=== PATIENT | female | born 1945 | race African-American/Black ===

== ENCOUNTER 2016-12-25 13:37 | Inpatient (IN) | payer OTHER ==
[~2016-12-25] VITALS: Ht 162.6 cm; Wt 93.0 kg
[2016-12-25] VITALS (10 sets, daily range): BP systolic 168–210; BP diastolic 57–94
[~2016-12-25 13:37] MED LIST: ACETAMINOPHEN650 M2 ORAL; ASPIR 8181 MG ORAL; BENAZEPRIL HCL10 MG ORAL; BLOOD PRESSURE PILL ORAL; COLACE100 MG ORAL; DUONEB 0.5-3(2.53 ML HHN; FERROUS SULFAT325 MG ORAL; GLIPIZIDE ER10 MG PO; INVANZ1 G1 IM; LEVOFLOXACIN750 MG ORAL; LOVENOX10 M4 SUBQ; METOPROLOL SUCC25 MG ORAL; MORPHINE 44 MG/1 ML IV; NOVOLIN N100 UNIT/1 SUBQ; NOVOLOG100 UNIT/3 SUBQ; ONDANSETRON4 MG/2 M2 IVP; PROTONIX40 MG ORAL; VANCOMYCIN1 GM/2502 IVPB
[2016-12-25] MEDS ORDERED: cefTRIAXone 1 GM in NS 55 ML IVPB ONE (14:15)
[2016-12-25] MEDS ORDERED: Vancomycin 1.5gm/D5W 250ml 250 ML IVPB ONE ×2 (14:15→17:00)
--- NOTE | 2016-12-25 14:16 | Emergency Room Report ---
History of Present Illness General Chief Complaint: Skin Rash/Abscess Source: Patient Present Illness HPI 71-year-old female history of hypertension and diabetes presenting with left lower leg ulcer with redness and pain for 2 months. Patient states that she has been using"[id number]"medications to treat her ulcer, however it keeps getting worse. Patient has not sought medical care for her ulcer. + yellow purulent drainage. +pain and redness to lower leg extending to mid calf. Denies fever chills chest pain shortness of breath nausea vomiting diarrhea No recent hospitalizations Allergies: Coded Allergies: No Known Allergies (Unverified , 01/12/13) Patient History Past Medical History: see triage record Past Surgical History: none Pertinent Family History: none Last Menstrual Period: na Reviewed Nursing Documentation: PMH: Agreed, PSxH: Agreed Nursing Documentation-PMH Past Medical History: No History, Except For Hx Cardiac Problems: Yes Hx Hypertension: Yes Hx Asthma: Yes Hx Diabetes: Yes Hx Cancer: No Hx Gastrointestinal Problems: No Hx Neurological Problems: Yes Hx Peripheral Neuropathy: Yes - S/P RIGHT FOOT SURGERY 02/2013 Review of Systems All Other Systems: negative except mentioned in HPI Physical Exam Vital Signs Date Time Temp Pulse Resp B/P (MAP) Pulse Ox O2 Delivery O2 Flow Rate FiO2 12/25/16 13:51 98.1 74 18 186/92 96 Room Air Sp02 EP Interpretation: reviewed, normal General Appearance: normal inspection, well appearing, no apparent distress, alert, GCS 15, non-toxic Head: normocephalic, atraumatic Eyes: bilateral eye normal inspection, bilateral eye PERRL, bilateral eye EOMI ENT: normal ENT inspection, normal pharynx, normal voice, moist mucus membranes Neck: normal inspection, full range of motion, supple Respiratory: normal inspection, lungs clear, normal breath sounds, no respiratory distress, no retraction, no wheezing, speaking full sentences, chest symmetrical Cardiovascular #1: normal inspection, regular rate, rhythm, no edema, normal capillary refill Cardiovascular #2: 2+ radial (R), 2+ radial (L) Gastrointestinal: normal inspection, non tender, soft, non-distended, no guarding Musculoskeletal: normal range of motion, other - Left lower extremity, lateral aspect of distal tib-fib, 2 x 2 superficial ulcer, purulent drainage, tender to palpation, surrounding erythema extending from ankle to mid calf, tender to palpation, no crepitus, distal pulses intact Neurologic: normal inspection, alert, oriented x3, responsive, motor strength/ tone normal, sensory intact, normal gait, speech normal Psychiatric: normal inspection, judgement/insight normal, memory normal Skin: warm/dry, well hydrated, normal turgor Medical Decision Making Diagnostic Impression: Primary Impression: Cellulitis Qualified Codes: L03.116 - Cellulitis of left lower limb ER Course 71-year-old female with diabetes presenting with redness/swelling to left lower leg for 2 months DDX: Diabetic ulcer infected/cellulitis No crepitus / pain out of proportion / rapid spreading for concern for nec fasc Plan: IV Antibiotics Anticipate admission ER course: Patient has been stable during ED stay, received IV antibiotics Disposition: Patient requires inpatient stay for IV antibiotics Patient admitted to [facility] Patient was signed out to Dr Ambriz, who has accepted patient for admission. Please note that this Emergency Department Report was dictated using [employer] vice president technology software, occasionally this can lead to erroneous entry secondary to interpretation by the dictation equipment. Laboratory Tests Test 12/25/16 14:23 White Blood Count 11.3 K/UL (4.8-10.8) H Red Blood Count 4.98 M/UL (4.20-5.40) Hemoglobin 11.3 G/DL (12.0-16.0) L Hematocrit 38.5 % (37.0-47.0) Mean Corpuscular Volume 77 FL (80-99) L Mean Corpuscular Hemoglobin 22.8 PG (27.0-31.0) L Mean Corpuscular Hemoglobin Concent 29.4 G/DL (32.0-36.0) L Red Cell Distribution Width 13.3 % (11.6-14.8) Platelet Count 233 K/UL (150-450) Mean Platelet Volume 9.6 FL (6.5-10.1) Neutrophils (%) (Auto) 64.7 % (45.0-75.0) Lymphocytes (%) (Auto) 23.2 % (20.0-45.0) Monocytes (%) (Auto) 7.8 % (1.0-10.0) Eosinophils (%) (Auto) 2.8 % (0.0-3.0) Basophils (%) (Auto) 1.4 % (0.0-2.0) Sodium Level 139 mEQ/L (135-145) Potassium Level 4.9 mEQ/L (3.4-4.9) Chloride Level 100 mEQ/L (98-107) Carbon Dioxide Level 28 mEQ/L (20-30) Anion Gap 11 (5-15) Blood Urea Nitrogen 21 mg/dL (7-23) Creatinine 1.1 mg/dL (0.5-0.9) H Estimate Glomerular Filtration Rate 59.8 mL/min (>60) Glucose Level 304 mg/dL (74-106) H Lactic Acid Level 1.30 mmol/L (0.66-2.22) Calcium Level 9.2 mg/dL (8.6-10.2) Total Bilirubin 0.4 mg/dL (0.0-1.2) Aspartate Amino Transferase (AST) 17 U/L (5-40) Alanine Aminotransferase (ALT) 12 U/L (3-33) Alkaline Phosphatase 111 U/L (35-104) H C-Reactive Protein, Quantitative 3.4 mg/dL (< 0.5) H Total Protein 6.9 g/dL (6.6-8.7) Albumin 4.0 g/dL (3.5-5.2) Globulin 2.9 g/dL Albumin/Globulin Ratio 1.3 (1.0-2.7) EKG Diagnostic Results Rate: normal Rhythm: NSR ST Segments: no acute changes ASA given to the pt in ED: No Last Vital Signs Date Time Temp Pulse Resp B/P (MAP) Pulse Ox O2 Delivery O2 Flow Rate FiO2 12/25/16 13:51 98.1 74 18 186/92 96 Room Air Disposition: ADMITTED INPATIENT Condition: Veronica Bermeo M.D. Dec 25, 2016 14:16
[2016-12-25 14:50] LABS: BASOPHILS % (AUTO) 1.4 % (0.0-2.0); EOSINOPHILS % (AUTO) 2.8 % (0.0-3.0); LYMPHOCYTES % (AUTO) 23.2 % (20.0-45.0); MEAN CORPUSCULAR HEMOGLOBIN 22.8 PG (27.0-31.0); MEAN CORPUSCULAR HGB CONC 29.4 G/DL (32.0-36.0); MEAN CORPUSCULAR VOLUME 77 FL (80-99); MEAN PLATELET VOLUME 9.6 FL (6.5-10.1); MONOCYTES % (AUTO) 7.8 % (1.0-10.0); NEUTROPHILS % (AUTO) 64.7 % (45.0-75.0); PLATELET COUNT 233 K/UL (150-450); RED BLOOD COUNT 4.98 M/UL (4.20-5.40); RED CELL DISTRIBUTION WIDTH 13.3 % (11.6-14.8); WHITE BLOOD COUNT 11.3 K/UL (4.8-10.8)
[2016-12-25 15:08] LABS: ALBUMIN/GLOBULIN RATIO 1.3 (1.0-2.7); CALCIUM 9.2 mg/dL (8.6-10.2); CREATININE 1.1 mg/dL (0.5-0.9); GLOMERULAR FILTRATION RATE 59.8 mL/min (>60); POTASSIUM 4.9 mEQ/L (3.4-4.9); TOTAL PROTEIN 6.9 g/dL (6.6-8.7)
[2016-12-25] MEDS ORDERED: Albuterol/Ipratropium 3ml neb HHN PRN (16:00)
[2016-12-25] MEDS ORDERED: Miralax 17gm pkt ORAL PRN (16:00)
[2016-12-25] MEDS ORDERED: Morphine Sulfate 2mg/ml Inj IVP PRN (16:00)
[2016-12-25] MEDS ORDERED: Nitroglycerin Subl 0.4mg tab SL PRN (16:00)
[2016-12-25] MEDS: NovoLOG Insulin Flexpen SUBQ SCH ×2 (16:30→21:25)
[2016-12-25] MEDS: Heparin 5000 units/ml inj SUBQ SCH ×2 (21:00→21:22)
[2016-12-25] MEDS: Cefepime HCl 2 GM in D5W 110 ML IV SCH (21:21)
[2016-12-26 04:00] VITALS: BP 167/82
[2016-12-26] MEDS: NovoLOG Insulin Flexpen SUBQ SCH ×4 (06:18→21:00)
[2016-12-26 06:36] LABS: EOSINOPHILS % (AUTO) 3.4 % (0.0-3.0); LYMPHOCYTES % (AUTO) 19.3 % (20.0-45.0); MEAN CORPUSCULAR HEMOGLOBIN 24.5 PG (27.0-31.0); MEAN CORPUSCULAR HGB CONC 31.4 G/DL (32.0-36.0); MEAN CORPUSCULAR VOLUME 78 FL (80-99); MEAN PLATELET VOLUME 10.7 FL (6.5-10.1); MONOCYTES % (AUTO) 8.9 % (1.0-10.0); NEUTROPHILS % (AUTO) 67.3 % (45.0-75.0); PLATELET COUNT 232 K/UL (150-450); RED BLOOD COUNT 4.71 M/UL (4.20-5.40); RED CELL DISTRIBUTION WIDTH 13.5 % (11.6-14.8); WHITE BLOOD COUNT 9.7 K/UL (4.8-10.8)
[2016-12-26 07:17] LABS: ALBUMIN/GLOBULIN RATIO 0.8 (1.0-2.7); CALCIUM 9.1 mg/dL (8.6-10.2); CREATININE 1.1 mg/dL (0.5-0.9); GLOMERULAR FILTRATION RATE 59.8 mL/min (>60); POTASSIUM 4.7 mEQ/L (3.4-4.9); TOTAL PROTEIN 7.1 g/dL (6.6-8.7)
[2016-12-26 08:00] VITALS: BP 185/95
[2016-12-26] MEDS: Aspirin EC 81mg tab ORAL SCH (08:05)
[2016-12-26] MEDS: Benazepril 10mg tab ORAL SCH (08:07)
[2016-12-26] MEDS: Cefepime HCl 2 GM in D5W 110 ML IV SCH (08:22)
[2016-12-26] MEDS: Heparin 5000 units/ml inj SUBQ SCH ×2 (08:23→21:00)
[2016-12-26] MEDS ORDERED: Metoprolol Succinate XL 25mg tab ORAL SCH (09:00)
[2016-12-26 12:00] VITALS: BP 187/78
--- NOTE | 2016-12-26 12:55 | Diagnostic Imaging Report ---
APPROVED REPORT CPT Code: 78027 Present Symptoms Comments: R/O DVT BILATERAL: Imaging reveals a patent deep venous system bilaterally. There is no evidence of thrombus within the femoral, popliteal or tibial segments. The greater saphenous veins are also within normal limits. Doppler indicates normal spontaneous flow within these segments.
--- NOTE | 2016-12-26 14:52 | Wound Care Consultation ---
Wound Assessment Wound Assessment : Wound Number: 1 Wound Present on Admission: Yes New Wound: No Status Change of Wound: No Wound Location Body Site Modif: left, lower Wound Location Body Site: leg Wound Type: other - Diabetic ulcer. German Test: Does not German Wound Thickness: Full Thickness Wound Length: 4.0 Wound Width: 4.0 Wound Depth: 0.3 Percent of Wound [place]/Red: 50 Percent of Wound Black/Brown: 50 - appearing scab Wound Drainage Description: Serosanguineous Wound Drainage Amount: Moderate Wound Drainage Odor: None/Absent Tissue Surrounding Wound: Erythemic Wound General Appearance: Reddened, Blackened - necrotic scab, Draining Wound Comment #1 left lower leg Diabetic ulcer (OPEN ULCER) . Recommendation. - FOLLOW UP WITH ATTENDING MD FOR POSSIBLE PODIATRY CONSULT. -Local wound care as ordered. -Turn and reposition. -Offload affected site. -Elevate lower extremity. -Optimize nutrition. -Keep clean and dry. -Assess and notify MD for any further changes of condition noted to skin. VELIA EAGLE Dec 26, 2016 14:52
--- NOTE | 2016-12-26 15:45 | Consultation ---
History of Present Illness General Date patient seen: Dec 26, 2016 Time patient seen: 15:41 Chief Complaint: Skin Rash/Abscess Reason for Consultation: cellulitis Present Illness HPI 71-year-old F with hx of HTN, DM2 with peripheral neuropathy, chronic foot ulcer presents to ED on 12/25 with L lower ulcer with redness and pain for 2 months duration. Has been using OTC meds to treat ulcer but keeps worsening. Has not sought for medical care previously. Reports purulent yellow drainge and pain and redness up to mid calf. Denies f/c, cough, SOB, n/v/d. No recent admissions. Afebrile here, Mild leukocytosis, resolved. Started on IV Vanco and Cefepime. Allergies: Coded Allergies: No Known Allergies (Unverified , 01/12/13) Medication History Scheduled Acetaminophen (Acetaminophen 8 Hour), 650 MG ORAL Q4HR, (Reported) Aspirin* (Aspir 81*), 81 MG ORAL DAILY, (Reported) Benazepril Hcl* (Benazepril Hcl*), 20 MG ORAL DAILY Docusate Sodium* (Colace*), 100 MG ORAL TWICE A DAY, (Reported) Enoxaparin* (Lovenox*), 40 MG SUBQ DAILY, (Reported) Ertapenem (Invanz), 1 GM IM DAILY Ferrous Sulfate* (Ferrous Sulfate*), 325 MG ORAL DAILY Insulin Aspart* (Novolog*), 0 SUBQ AC+HS, (Reported) Levofloxacin* (Levofloxacin*), 750 MG ORAL DAILY Metoprolol Succinate* (Metoprolol Succinate*), 25 MG ORAL DAILY, (Reported) Morphine Sulfate/Pf (Morphine 4 Mg/Ml Carpuject), 4 MG IV Q6HR, (Reported) Ondansetron* (Zofran 4 Mg/2 Ml Vial*), 4 MG IVP Q6H, (Reported) Pantoprazole* (Protonix*), 40 MG ORAL DAILY, (Reported) Vancomycin Hcl/D5w (Vancomycin-D5w 1 G/250 Ml), 750 MG IVPB Q12HR, (Reported) Scheduled PRN Morphine Sulfate/Pf (Morphine 4 Mg/Ml Carpuject), 2 MG IV Q4HR PRN for Pain Scale (3-5), (Reported) Miscellaneous Medications Glipizide (Glipizide Er), 10 MG PO, (Reported) Ipratropium/Albuterol Sulfate (DuoNeb 0.5-3(2.5)mg/3ml), 3 ML HHN, (Reported) Patient History Healthcare decision maker Resuscitation status Full Code Advanced Directive on File No Past Medical/Surgical History Past Medical/Surgical History: (1) Anemia (2) Peripheral neuropathy (3) HTN (hypertension) (4) Diabetic foot ulcer with osteomyelitis (5) Diabetic foot ulcer (6) Pain in right foot (7) DM (8) Diabetic foot ulcer with osteomyelitis (9) Cellulitis Review of Systems ROS Narrative as per HPI, otherwise negative Physical Exam Physical Exam Narrative General Appearance: normal inspection, well appearing, HEENT:no oral lesions,PERRL Neck: supple Respiratory: CTA x2 Cardiovascular #1: normal inspection, regular rate, rhythm, no edema, normal capillary refill Gastrointestinal: normal inspection, non tender, soft, non-distended, no guarding Musculoskeletal: normal range of motion, other - Left lower extremity, lateral aspect of distal tib-fib, 2 x 2 superficial ulcer, no drainage, middly tender to palpation, surrounding erythema extending from ankle to mid calf. venous stasis changes b/l Neurologic: normal inspection, alert, oriented x3, responsive, motor strength/ tone normal, sensory intact, normal gait, speech normal Skin: warm/dry, well hydrated, normal turgor Last 24 Hour Vital Signs Date Time Temp Pulse Resp B/P (MAP) Pulse Ox O2 Delivery O2 Flow Rate FiO2 12/26/16 12:00 97.0 87 20 187/78 99 Room Air 12/26/16 08:22 81 167/82 12/26/16 08:07 167/82 12/26/16 08:06 167/82 12/26/16 08:00 97.9 75 20 185/95 98 Room Air 12/26/16 04:00 97.5 81 20 167/82 96 Room Air 12/25/16 20:03 97.3 86 20 174/74 97 Room Air 12/25/16 18:21 68 20 168/75 95 Room Air 12/25/16 17:47 98.4 81 17 173/94 98 Room Air 12/25/16 17:41 98.4 81 17 173/94 98 Room Air 12/25/16 17:30 98.1 81 17 173/94 98 Room Air 12/25/16 17:05 199/66 12/25/16 17:00 98.3 76 18 197/57 99 Room Air 12/25/16 16:30 98.0 78 13 199/61 99 Room Air 12/25/16 16:00 98.2 72 14 198/60 98 Room Air Laboratory Tests Test 12/26/16 05:30 White Blood Count 9.7 K/UL (4.8-10.8) Red Blood Count 4.71 M/UL (4.20-5.40) Hemoglobin 11.5 G/DL (12.0-16.0) L Hematocrit 36.7 % (37.0-47.0) L Mean Corpuscular Volume 78 FL (80-99) L Mean Corpuscular Hemoglobin 24.5 PG (27.0-31.0) L Mean Corpuscular Hemoglobin Concent 31.4 G/DL (32.0-36.0) L Red Cell Distribution Width 13.5 % (11.6-14.8) Platelet Count 232 K/UL (150-450) Mean Platelet Volume 10.7 FL (6.5-10.1) H Neutrophils (%) (Auto) 67.3 % (45.0-75.0) Lymphocytes (%) (Auto) 19.3 % (20.0-45.0) L Monocytes (%) (Auto) 8.9 % (1.0-10.0) Eosinophils (%) (Auto) 3.4 % (0.0-3.0) H Basophils (%) (Auto) 1.0 % (0.0-2.0) Sodium Level 137 mEQ/L (135-145) Potassium Level 4.7 mEQ/L (3.4-4.9) Chloride Level 98 mEQ/L (98-107) Carbon Dioxide Level 29 mEQ/L (20-30) Anion Gap 10 (5-15) Blood Urea Nitrogen 21 mg/dL (7-23) Creatinine 1.1 mg/dL (0.5-0.9) H Estimat Glomerular Filtration Rate 59.8 mL/min (>60) Glucose Level 411 mg/dL (74-106) #H Calcium Level 9.1 mg/dL (8.6-10.2) Total Bilirubin 0.3 mg/dL (0.0-1.2) Aspartate Amino Transf (AST/SGOT) 15 U/L (5-40) Alanine Aminotransferase (ALT/SGPT) 9 U/L (3-33) Alkaline Phosphatase 113 U/L (35-104) H Total Protein 7.1 g/dL (6.6-8.7) Albumin 3.3 g/dL (3.5-5.2) L Globulin 3.8 g/dL Albumin/Globulin Ratio 0.8 (1.0-2.7) L Height (Feet): 5 Height (Inches): 4.00 Weight (Pounds): 205 Medications Current Medications Medications (Trade) Dose Ordered Sig/Alfonso Route PRN Reason Start Time Stop Time Status Last Admin Dose Admin Acetaminophen (Tylenol) 650 mg Q4H PRN ORAL fever 12/25/16 16:00 01/24/17 15:59 Albuterol/ Ipratropium (DuoNeb 0.5-3(2.5)mg/3ml) 3 ml Q4H PRN HHN Shortness of Breath 12/25/16 16:00 12/30/16 15:59 Aspirin (Ecotrin) 81 mg DAILY ORAL 12/26/16 09:00 01/25/17 08:59 12/26/16 08:05 Benazepril HCl (Lotensin) 20 mg DAILY ORAL 12/26/16 09:00 01/25/17 08:59 12/26/16 08:07 Cefepime HCl 2 gm/ Dextrose 110 ml @ 220 mls/hr EVERY 12 HOURS IV 12/25/16 21:00 01/01/17 20:59 12/26/16 08:22 Clonidine HCl (Catapres) 0.1 mg Q6H PRN ORAL For High Blood Pressure 12/25/16 21:45 01/24/17 21:44 12/26/16 08:06 Dextrose (Dextrose 50%) STAT PRN IV Hypoglycemia 12/25/16 16:00 01/24/17 15:59 Glipizide (Glucotrol) 10 mg BIAC ORAL 12/26/16 16:30 01/25/17 16:29 Heparin Sodium (Porcine) (Heparin 5000 units/ml) 5,000 units EVERY 12 HOURS SUBQ 12/25/16 21:00 01/24/17 20:59 Insulin Aspart (NovoLOG) BEFORE MEALS AND HS SUBQ 12/25/16 16:30 01/24/17 16:29 12/26/16 12:52 Metoprolol Succinate (Toprol XL) 25 mg DAILY ORAL 12/26/16 09:00 01/25/17 08:59 Morphine Sulfate (Morphine Sulfate) 2 mg Q4H PRN IVP Moderate Pain (Pain Scale 4-6) 12/25/16 16:00 01/01/17 15:59 Nitroglycerin (Ntg) 0.4 mg Every 5 Minutes PRN SL Prn Chest Pain 12/25/16 16:00 01/24/17 15:59 Ondansetron HCl (Zofran) 4 mg Q6H PRN IVP Nausea & Vomiting 12/25/16 16:00 01/24/17 15:59 Pantoprazole (Protonix) 40 mg DAILY ORAL 12/26/16 09:00 01/25/17 08:59 Polyethylene Glycol (Miralax) 17 gm DAILYPRN PRN ORAL Constipation 12/25/16 16:00 01/24/17 15:59 Temazepam (Restoril) 15 mg HSPRN PRN ORAL Insomnia 12/25/16 16:00 01/01/17 15:59 Vancomycin HCl (Vanco rx to dose) 1 ea DAILY PRN MISC PER RX PROTOCOL 12/25/16 17:00 01/24/17 16:59 Vancomycin HCl/ Dextrose 250 ml @ 166.636 mls/hr Q24H IVPB 12/26/16 17:00 12/31/16 16:59 Assessment/Plan Assessment/Plan Abx: Ceftriaxone x1 12/25 IV Vancomcyin 12/25- IV Cefepime 12/26- Assesment: Chronic L leg ulcer with superimposed cellulitis- superificial ulcer.Ulcer in itself doesnt look infected but there is surrounding cellulitis- location of ulcer suggest venous insufficeicny -afebrile -wound cx and Bcx ordered Leukocytosis, mild- resolved Plan: -Switch current abx to IV Ancef for cellulitis -f/u cx -baseline ESR and CRP -wound care and podiatry evaluation -Monitor CBC/BMP, temperatures Thank you for this consultation.Will continue to follow along with you Discussed with RN and Doris Butterfield M.D. Dec 26, 2016 15:45
[2016-12-26 16:00] VITALS: BP 181/85
--- NOTE | 2016-12-26 16:08 | History and Physical ---
History of Present Illness General Date patient seen: Dec 26, 2016 Reason for Hospitalization: Skin Rash/Abscess Present Illness HPI 71-year-old female history of hypertension and diabetes presenting with left lower leg ulcer with redness and pain for 2 months. Patient has not sought medical care for her ulcer. + yellow purulent drainage. +pain and redness to lower leg extending to mid calf. She is admitted b/o not healing wound and cellulitis. Allergies: Coded Allergies: No Known Allergies (Unverified , 01/12/13) Medication History Scheduled Acetaminophen (Acetaminophen 8 Hour), 650 MG ORAL Q4HR, (Reported) Aspirin* (Aspir 81*), 81 MG ORAL DAILY, (Reported) Benazepril Hcl* (Benazepril Hcl*), 20 MG ORAL DAILY Docusate Sodium* (Colace*), 100 MG ORAL TWICE A DAY, (Reported) Enoxaparin* (Lovenox*), 40 MG SUBQ DAILY, (Reported) Ertapenem (Invanz), 1 GM IM DAILY Ferrous Sulfate* (Ferrous Sulfate*), 325 MG ORAL DAILY Insulin Aspart* (Novolog*), 0 SUBQ AC+HS, (Reported) Levofloxacin* (Levofloxacin*), 750 MG ORAL DAILY Metoprolol Succinate* (Metoprolol Succinate*), 25 MG ORAL DAILY, (Reported) Morphine Sulfate/Pf (Morphine 4 Mg/Ml Carpuject), 4 MG IV Q6HR, (Reported) Ondansetron* (Zofran 4 Mg/2 Ml Vial*), 4 MG IVP Q6H, (Reported) Pantoprazole* (Protonix*), 40 MG ORAL DAILY, (Reported) Vancomycin Hcl/D5w (Vancomycin-D5w 1 G/250 Ml), 750 MG IVPB Q12HR, (Reported) Scheduled PRN Morphine Sulfate/Pf (Morphine 4 Mg/Ml Carpuject), 2 MG IV Q4HR PRN for Pain Scale (3-5), (Reported) Miscellaneous Medications Glipizide (Glipizide Er), 10 MG PO, (Reported) Ipratropium/Albuterol Sulfate (DuoNeb 0.5-3(2.5)mg/3ml), 3 ML HHN, (Reported) Patient History Healthcare decision maker Resuscitation status Full Code Advanced Directive on File No Past Medical/Surgical History Past Medical/Surgical History: (1) DM (2) Diabetic foot ulcer (3) HTN (hypertension) Review of Systems All Other Systems: negative except mentioned in HPI Physical Exam General Appearance: WD/WN, no apparent distress Lines, tubes and drains: peripheral HEENT: normocephalic, atraumatic Neck: non-tender, normal alignment Respiratory/Chest: chest wall non-tender, lungs clear Breasts: no masses Cardiovascular/Chest: normal peripheral pulses Abdomen: normal bowel sounds, non tender Genitourinary/Rectal: normal genital exam, heme negative stool Extremities: normal range of motion, non-tender Last 24 Hour Vital Signs Date Time Temp Pulse Resp B/P (MAP) Pulse Ox O2 Delivery O2 Flow Rate FiO2 12/26/16 12:00 97.0 87 20 187/78 99 Room Air 12/26/16 08:22 81 167/82 12/26/16 08:07 167/82 12/26/16 08:06 167/82 12/26/16 08:00 97.9 75 20 185/95 98 Room Air 12/26/16 04:00 97.5 81 20 167/82 96 Room Air 12/25/16 20:03 97.3 86 20 174/74 97 Room Air 12/25/16 18:21 68 20 168/75 95 Room Air 12/25/16 17:47 98.4 81 17 173/94 98 Room Air 12/25/16 17:41 98.4 81 17 173/94 98 Room Air 12/25/16 17:30 98.1 81 17 173/94 98 Room Air 12/25/16 17:05 199/66 12/25/16 17:00 98.3 76 18 197/57 99 Room Air 12/25/16 16:30 98.0 78 13 199/61 99 Room Air Laboratory Tests Test 12/26/16 05:30 White Blood Count 9.7 K/UL (4.8-10.8) Red Blood Count 4.71 M/UL (4.20-5.40) Hemoglobin 11.5 G/DL (12.0-16.0) L Hematocrit 36.7 % (37.0-47.0) L Mean Corpuscular Volume 78 FL (80-99) L Mean Corpuscular Hemoglobin 24.5 PG (27.0-31.0) L Mean Corpuscular Hemoglobin Concent 31.4 G/DL (32.0-36.0) L Red Cell Distribution Width 13.5 % (11.6-14.8) Platelet Count 232 K/UL (150-450) Mean Platelet Volume 10.7 FL (6.5-10.1) H Neutrophils (%) (Auto) 67.3 % (45.0-75.0) Lymphocytes (%) (Auto) 19.3 % (20.0-45.0) L Monocytes (%) (Auto) 8.9 % (1.0-10.0) Eosinophils (%) (Auto) 3.4 % (0.0-3.0) H Basophils (%) (Auto) 1.0 % (0.0-2.0) Sodium Level 137 mEQ/L (135-145) Potassium Level 4.7 mEQ/L (3.4-4.9) Chloride Level 98 mEQ/L (98-107) Carbon Dioxide Level 29 mEQ/L (20-30) Anion Gap 10 (5-15) Blood Urea Nitrogen 21 mg/dL (7-23) Creatinine 1.1 mg/dL (0.5-0.9) H Estimat Glomerular Filtration Rate 59.8 mL/min (>60) Glucose Level 411 mg/dL (74-106) #H Calcium Level 9.1 mg/dL (8.6-10.2) Total Bilirubin 0.3 mg/dL (0.0-1.2) Aspartate Amino Transf (AST/SGOT) 15 U/L (5-40) Alanine Aminotransferase (ALT/SGPT) 9 U/L (3-33) Alkaline Phosphatase 113 U/L (35-104) H Total Protein 7.1 g/dL (6.6-8.7) Albumin 3.3 g/dL (3.5-5.2) L Globulin 3.8 g/dL Albumin/Globulin Ratio 0.8 (1.0-2.7) L Height (Feet): 5 Height (Inches): 4.00 Weight (Pounds): 205 Medications Current Medications Medications (Trade) Dose Ordered Sig/Alfonso Route PRN Reason Start Time Stop Time Status Last Admin Dose Admin Acetaminophen (Tylenol) 650 mg Q4H PRN ORAL fever 12/25/16 16:00 01/24/17 15:59 Albuterol/ Ipratropium (DuoNeb 0.5-3(2.5)mg/3ml) 3 ml Q4H PRN HHN Shortness of Breath 12/25/16 16:00 12/30/16 15:59 Aspirin (Ecotrin) 81 mg DAILY ORAL 12/26/16 09:00 01/25/17 08:59 12/26/16 08:05 Benazepril HCl (Lotensin) 20 mg DAILY ORAL 12/26/16 09:00 01/25/17 08:59 12/26/16 08:07 Cefazolin Sodium 50 ml @ 100 mls/hr EVERY 8 HOURS ONCE IV 12/26/16 17:00 12/26/16 17:29 UNV Clonidine HCl (Catapres) 0.1 mg Q6H PRN ORAL For High Blood Pressure 12/25/16 21:45 01/24/17 21:44 12/26/16 08:06 Dextrose (Dextrose 50%) STAT PRN IV Hypoglycemia 12/25/16 16:00 01/24/17 15:59 Furosemide (Lasix) 20 mg DAILY ORAL 12/26/16 16:15 01/25/17 16:14 UNV Glipizide (Glucotrol) 10 mg BIAC ORAL 12/26/16 16:30 01/25/17 16:29 Heparin Sodium (Porcine) (Heparin 5000 units/ml) 5,000 units EVERY 12 HOURS SUBQ 12/25/16 21:00 01/24/17 20:59 Insulin Aspart (NovoLOG) BEFORE MEALS AND HS SUBQ 12/25/16 16:30 01/24/17 16:29 12/26/16 12:52 Metoprolol Succinate (Toprol XL) 25 mg DAILY ORAL 12/26/16 09:00 01/25/17 08:59 Morphine Sulfate (Morphine Sulfate) 2 mg Q4H PRN IVP Moderate Pain (Pain Scale 4-6) 12/25/16 16:00 01/01/17 15:59 Nitroglycerin (Ntg) 0.4 mg Every 5 Minutes PRN SL Prn Chest Pain 12/25/16 16:00 01/24/17 15:59 Ondansetron HCl (Zofran) 4 mg Q6H PRN IVP Nausea & Vomiting 12/25/16 16:00 01/24/17 15:59 Pantoprazole (Protonix) 40 mg DAILY ORAL 12/26/16 09:00 01/25/17 08:59 Polyethylene Glycol (Miralax) 17 gm DAILYPRN PRN ORAL Constipation 12/25/16 16:00 01/24/17 15:59 Temazepam (Restoril) 15 mg HSPRN PRN ORAL Insomnia 12/25/16 16:00 01/01/17 15:59 Vancomycin HCl/ Dextrose 250 ml @ 166.636 mls/hr Q24H IVPB 12/26/16 17:00 12/31/16 16:59 Assessment/Plan Problem List: (1) Cellulitis ICD Codes: L03.90 - Cellulitis, unspecified SNOMED: 930001163 (2) HTN (hypertension) ICD Codes: I10 - HTN (hypertension) SNOMED: 93494341 (3) DM (4) Anemia ICD Codes: D64.9 - Anemia SNOMED: 614650575 Assessment/Plan wound care IV abx check cultures monitor BP CARLOTA PEREZ Dec 26, 2016 16:08
[2016-12-26] MEDS: GlipiZIDE 10mg tab ORAL SCH (16:22)
[2016-12-26] MEDS ORDERED: Vancomycin 1.5gm/D5W 250ml 250 ML IVPB SCH (17:00)
[2016-12-26 17:27] LABS: INR 0.9 (0.9-1.1); PROTHROMBIN TIME 9.6 SEC (9.30-11.50)
[2016-12-26] MEDS ORDERED: ceFAZolin 1gm/50ml Premix 50 ML IV SCH (18:00)
[2016-12-26 18:15] LABS: ANISOCYTOSIS 1+; BAND NEUTROPHILS % (MANUAL) 4 % (0-8); BASOPHILS % (MANUAL) 1 % (0-2); EOSINOPHILS % (MANUAL) 4 % (0-3); HYPOCHROMASIA 1+; LYMPHOCYTES % (MANUAL) 21 % (20-45); NEUTROPHILS % (MANUAL) 64 % (45-75); PLATELET ESTIMATE ADEQUATE; PLATELET MORPHOLOGY NORMAL; TOTAL CELLS COUNTED 100
[2016-12-26 18:17] LABS: PATH BLOOD SMEAR/OMC SENT TO PATHOLOGIST
[2016-12-26] MEDS: ceFAZolin 1gm in D5W 55ml IVP SCH (18:17)
[2016-12-26 18:29] LABS: RETICULOCYTE COUNT 0.9 % (0.0-2.0)
--- NOTE | 2016-12-26 19:15 | Cardiology Report ---
APPROVED REPORT EKG Measurement Heart [id number] Normal sinus rhythm Septal infarct, age undetermined Abnormal ECG
[2016-12-26 20:00] VITALS: BP 132/72
[2016-12-27] VITALS: BP 124/58
[2016-12-27 04:00] VITALS: BP 134/72
[2016-12-27] MEDS: ceFAZolin 1gm in D5W 55ml IVP SCH ×3 (05:05→21:32)
[2016-12-27] MEDS: GlipiZIDE 10mg tab ORAL SCH ×2 (05:54→17:01)
[2016-12-27] MEDS: NovoLOG Insulin Flexpen SUBQ SCH ×4 (06:04→20:45)
[2016-12-27 07:12] LABS: BASOPHILS % (AUTO) 1.2 % (0.0-2.0); EOSINOPHILS % (AUTO) 3.8 % (0.0-3.0); LYMPHOCYTES % (AUTO) 24.8 % (20.0-45.0); MEAN CORPUSCULAR HEMOGLOBIN 24.2 PG (27.0-31.0); MEAN CORPUSCULAR HGB CONC 31.4 G/DL (32.0-36.0); MEAN CORPUSCULAR VOLUME 77 FL (80-99); MEAN PLATELET VOLUME 10.3 FL (6.5-10.1); MONOCYTES % (AUTO) 9.5 % (1.0-10.0); NEUTROPHILS % (AUTO) 60.7 % (45.0-75.0); PLATELET COUNT 214 K/UL (150-450); RED BLOOD COUNT 4.27 M/UL (4.20-5.40); RED CELL DISTRIBUTION WIDTH 13.4 % (11.6-14.8); WHITE BLOOD COUNT 10.8 K/UL (4.8-10.8)
[2016-12-27 07:47] LABS: ALBUMIN/GLOBULIN RATIO 0.9 (1.0-2.7); CALCIUM 8.9 mg/dL (8.6-10.2); CREATININE 1.3 mg/dL (0.5-0.9); GLOMERULAR FILTRATION RATE 49.2 mL/min (>60); MAGNESIUM 1.6 mg/dL (1.7-2.5); PHOSPHORUS 3.7 mg/dL (2.5-4.8); POTASSIUM 4.2 mEQ/L (3.4-4.9); TOTAL PROTEIN 6.7 g/dL (6.6-8.7)
[2016-12-27 08:00] VITALS: BP 128/66
[2016-12-27] MEDS: Heparin 5000 units/ml inj SUBQ SCH ×2 (09:00→20:33)
[2016-12-27] MEDS: Metoprolol Succinate XL 25mg tab ORAL SCH (09:00)
[2016-12-27] MEDS: Benazepril 10mg tab ORAL SCH (09:00)
[2016-12-27] MEDS: Aspirin EC 81mg tab ORAL SCH (09:58)
[2016-12-27 12:00] VITALS: BP 152/74
--- NOTE | 2016-12-27 13:34 | Consultation ---
Consult Note Consult Note asked to eval for rising Cr 71-year-old female history of hypertension and diabetes presenting with left lower leg ulcer with redness and pain for 2 months. Patient states that she has been using"[id number]"medications to treat her ulcer, however it keeps getting worse. Patient has not sought medical care for her ulcer. + yellow purulent drainage. +pain and redness to lower leg extending to mid calf. Denies fever chills chest pain shortness of breath nausea vomiting diarrhea No recent hospitalizations Hx Cardiac Problems: Yes Hx Hypertension: Yes Hx Asthma: Yes Hx Diabetes: Yes Hx Neurological Problems: Yes Hx Peripheral Neuropathy: Yes - S/P RIGHT FOOT SURGERY 02/2013 interviewed examined data reviewed Assessment/Plan Renal failure ? Dehydration ? Underlying diabetic nephropathy DM HTN Anemia low MCV IV Iron Adjust BP meds Keep BS in check UA U Na avoid nephrotoxics per orders KIMBER KIM Dec 27, 2016 13:34
[2016-12-27 14:27] LABS: APPEARANCE,URINE SLIGHTLY CLOUDY; KETONES,URINE NEGATIVE (NEGATIVE); LEUKOCYTE ESTERASE ,URINE NEGATIVE (NEGATIVE); NITRITE,URINE NEGATIVE (NEGATIVE); PH,URINE 5 (4.5-8.0); PROTEIN,URINE 3+ (NEGATIVE); UROBILINOGEN,URINE NORMAL MG/DL (0.0-1.0)
[2016-12-27 14:37] LABS: BACTERIA,URINE FEW /HPF; RBC,URINE 0-2 /HPF (0 - 2); SQUAMOUS EPITHELIAL CELL,UR MANY /LPF (NONE/OCC)
[2016-12-27 16:00] VITALS: BP 174/72
--- NOTE | 2016-12-27 17:39 | Internal Med Progress Note ---
Subjective Date of Service: Dec 27, 2016 Physician Name Weinstein,Kelle Attending Physician Dong Ambriz Current Medications Medications (Trade) Dose Ordered Sig/Alfonso Route PRN Reason Start Time Stop Time Status Last Admin Dose Admin Acetaminophen (Tylenol) 650 mg Q4H PRN ORAL fever 12/25/16 16:00 01/24/17 15:59 Albuterol/ Ipratropium (DuoNeb 0.5-3(2.5)mg/3ml) 3 ml Q4H PRN HHN Shortness of Breath 12/25/16 16:00 12/30/16 15:59 Amlodipine Besylate (Norvasc) 5 mg DAILY ORAL 12/27/16 09:00 01/26/17 08:59 Aspirin (Ecotrin) 81 mg DAILY ORAL 12/26/16 09:00 01/25/17 08:59 12/27/16 09:58 Benazepril HCl (Lotensin) 20 mg DAILY ORAL 12/26/16 09:00 01/25/17 08:59 12/26/16 08:07 Cefazolin Sodium 1 gm/Dextrose 55 ml @ 110 mls/hr EVERY 8 HOURS IVP 12/26/16 18:00 01/02/17 17:59 12/27/16 14:42 Clonidine HCl (Catapres) 0.1 mg Q6H PRN ORAL For High Blood Pressure 12/25/16 21:45 01/24/17 21:44 12/27/16 17:02 Dextrose (Dextrose 50%) STAT PRN IV Hypoglycemia 12/25/16 16:00 01/24/17 15:59 Furosemide (Lasix) 20 mg DAILY ORAL 12/26/16 16:30 01/25/17 16:29 12/27/16 09:57 Glipizide (Glucotrol) 10 mg BIAC ORAL 12/26/16 16:30 01/25/17 16:29 12/27/16 17:01 Heparin Sodium (Porcine) (Heparin 5000 units/ml) 5,000 units EVERY 12 HOURS SUBQ 12/25/16 21:00 01/24/17 20:59 Insulin Aspart (NovoLOG) BEFORE MEALS AND HS SUBQ 12/25/16 16:30 01/24/17 16:29 12/27/16 12:15 Iron Sucrose 100 mg/Sodium Chloride 55 ml @ 200 mls/hr BEDTIME IV 12/27/16 21:00 12/31/16 21:17 Metoprolol Succinate (Toprol XL) 50 mg DAILY ORAL 12/27/16 09:00 01/26/17 08:59 Morphine Sulfate (Morphine Sulfate) 2 mg Q4H PRN IVP Moderate Pain (Pain Scale 4-6) 12/25/16 16:00 01/01/17 15:59 Nitroglycerin (Ntg) 0.4 mg Every 5 Minutes PRN SL Prn Chest Pain 12/25/16 16:00 01/24/17 15:59 Ondansetron HCl (Zofran) 4 mg Q6H PRN IVP Nausea & Vomiting 12/25/16 16:00 01/24/17 15:59 Pantoprazole (Protonix) 40 mg DAILY ORAL 12/26/16 09:00 01/25/17 08:59 Polyethylene Glycol (Miralax) 17 gm DAILYPRN PRN ORAL Constipation 12/25/16 16:00 01/24/17 15:59 Temazepam (Restoril) 15 mg HSPRN PRN ORAL Insomnia 12/25/16 16:00 01/01/17 15:59 Allergies: Coded Allergies: No Known Allergies (Unverified , 01/12/13) ROS Limited/Unobtainable: No Constitutional: Reports: no symptoms HEENT: Reports: no symptoms Cardiovascular: Reports: no symptoms Respiratory: Reports: no symptoms Gastrointestinal/Abdominal: Reports: no symptoms Genitourinary: Reports: no symptoms 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: Reports: no symptoms Subjective 71 YO F admitted with left leg ulcer and cellulitis. Cover for On License Of [facility] Blancas. Objective Last Vital Signs Date Time Temp Pulse Resp B/P (MAP) Pulse Ox O2 Delivery O2 Flow Rate FiO2 12/27/16 17:02 174/72 12/27/16 16:00 97.7 68 20 98 Room Air General Appearance: WD/WN, no apparent distress, alert, obese EENT: PERRL/EOMI, normal ENT inspection Neck: non-tender, normal alignment, supple, normal inspection Cardiovascular: normal peripheral pulses, normal rate, regular rhythm, no gallop/murmur, no JVD Respiratory/Chest: chest wall non-tender, lungs clear, normal breath sounds, no respiratory distress, no accessory muscle use Abdomen: normal bowel sounds, non tender, soft, no organomegaly, no mass Extremities: normal range of motion 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, no motor/sensory deficits Skin: normal pigmentation, warm/dry Laboratory Tests Test 12/27/16 05:00 12/27/16 14:00 White Blood Count 10.8 K/UL (4.8-10.8) Red Blood Count 4.27 M/UL (4.20-5.40) Hemoglobin 10.4 G/DL (12.0-16.0) L Hematocrit 33.0 % (37.0-47.0) L Mean Corpuscular Volume 77 FL (80-99) L Mean Corpuscular Hemoglobin 24.2 PG (27.0-31.0) L Mean Corpuscular Hemoglobin Concent 31.4 G/DL (32.0-36.0) L Red Cell Distribution Width 13.4 % (11.6-14.8) Platelet Count 214 K/UL (150-450) Mean Platelet Volume 10.3 FL (6.5-10.1) H Neutrophils (%) (Auto) 60.7 % (45.0-75.0) Lymphocytes (%) (Auto) 24.8 % (20.0-45.0) Monocytes (%) (Auto) 9.5 % (1.0-10.0) Eosinophils (%) (Auto) 3.8 % (0.0-3.0) H Basophils (%) (Auto) 1.2 % (0.0-2.0) Erythrocyte Sedimentation Rate 59 MM/HR (0-30) H Sodium Level 139 mEQ/L (135-145) Potassium Level 4.2 mEQ/L (3.4-4.9) Chloride Level 99 mEQ/L (98-107) Carbon Dioxide Level 28 mEQ/L (20-30) Anion Gap 12 (5-15) Blood Urea Nitrogen 27 mg/dL (7-23) H Creatinine 1.3 mg/dL (0.5-0.9) H Estimat Glomerular Filtration Rate 49.2 mL/min (>60) Glucose Level 140 mg/dL (74-106) #H Calcium Level 8.9 mg/dL (8.6-10.2) Phosphorus Level 3.7 mg/dL (2.5-4.8) Magnesium Level 1.6 mg/dL (1.7-2.5) L Ferritin 102 ng/mL (13-150) Total Bilirubin 0.4 mg/dL (0.0-1.2) Aspartate Amino Transf (AST/SGOT) 14 U/L (5-40) Alanine Aminotransferase (ALT/SGPT) 9 U/L (3-33) Alkaline Phosphatase 100 U/L (35-104) C-Reactive Protein, Quantitative 3.3 mg/dL (< 0.5) H Total Protein 6.7 g/dL (6.6-8.7) Albumin 3.2 g/dL (3.5-5.2) L Globulin 3.5 g/dL Albumin/Globulin Ratio 0.9 (1.0-2.7) L Urine Color Pale yellow Urine Appearance Slightly cloudy Urine pH 5 (4.5-8.0) Urine Specific [place] 1.010 (1.005-1.035) Urine Protein 3+ (NEGATIVE) H Urine Glucose (UA) 1+ (NEGATIVE) H Urine Ketones Negative (NEGATIVE) Urine Occult Blood Negative (NEGATIVE) Urine Nitrite Negative (NEGATIVE) Urine Bilirubin Negative (NEGATIVE) Urine Urobilinogen Normal MG/DL (0.0-1.0) Urine Leukocyte Esterase Negative (NEGATIVE) Urine RBC 0-2 /HPF (0 - 2) Urine WBC 2-4 /HPF (0 - 2) Urine Squamous Epithelial Cells Many /LPF (NONE/OCC) H Urine Bacteria Few /HPF (NONE) Urine Hyaline Casts 2-4 /LPF (NONE) H Urine Random Sodium 69 mmol/L Microbiology Date/Time Source Procedure Growth Status 12/25/16 14:23 Blood Blood Culture - Preliminary NO GROWTH AFTER 24 HOURS Resulted 12/25/16 14:13 Blood Blood Culture - Preliminary NO GROWTH AFTER 24 HOURS Resulted 12/25/16 19:00 Leg Left Gram Stain - Final Resulted 12/25/16 19:00 Wound Culture - Preliminary Staphylococcus Sp Coag Neg Resulted Assessment/Plan Problem List: (1) Left leg cellulitis Assessment & Plan: Continue ancef. (2) Diabetes mellitus, type II Assessment & Plan: Cont novolog sliding scale. (3) Renal failure Assessment & Plan: ?diabetic nephropathy? See nephrology note. (4) HTN (hypertension) Assessment & Plan: Cont amlodipine, toprolol and benazepril. (5) Anemia Assessment & Plan: ?chronic renal dis? Follow hgb Status: not improved KELLE WEINSTEIN Dec 27, 2016 17:39
[2016-12-27 18:49] VITALS: BP 152/73
--- NOTE | 2016-12-27 20:26 | Infectious Diseases Prog Note ---
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) -Bcx NTD Leukocytosis, mild- resolved Mildly elevated ESR/CRP -ESR 59, CRP 3.3 12/27 Dm2 with peripheral neuropathy venous stasis HTN Plan: -Continue IV Ancef #2 (abx # 3/5-7) for cellulitis -f/u cx -wound care and podiatry evaluation -Monitor CBC/BMP, temperatures Thank you for this consultation.Will continue to follow along with you Discussed with RN Subjective Allergies: Coded Allergies: No Known Allergies (Unverified , 01/12/13) Subjective afebrile VSS no leukocytos Objective Vital Signs Last 24 Hour Vital Signs Date Time Temp Pulse Resp B/P (MAP) Pulse Ox O2 Delivery O2 Flow Rate FiO2 12/27/16 18:49 98.0 63 20 152/73 98 Room Air 12/27/16 17:02 174/72 12/27/16 16:00 97.7 68 20 174/72 98 Room Air 12/27/16 12:00 96.3 74 21 152/74 100 Room Air 12/27/16 09:00 68 128/66 12/27/16 09:00 68 128/66 12/27/16 09:00 128/66 12/27/16 08:00 94.0 68 20 128/66 99 Room Air 12/27/16 04:00 97.3 67 21 134/72 98 Room Air 12/27/16 00:00 98.2 66 20 124/58 99 Room Air Height (Feet): 5 Height (Inches): 4.00 Weight (Pounds): 205 Objective General Appearance: normal inspection, well appearing, HEENT:no oral lesions,PERRL Neck: supple Respiratory: CTA x2 Cardiovascular #1: normal inspection, regular rate, rhythm, no edema, normal capillary refill Gastrointestinal: normal inspection, non tender, soft, non-distended, no guarding Musculoskeletal: normal range of motion, other - Left lower extremity, lateral aspect of distal tib-fib, 2 x 2 superficial ulcer, no drainage, middly tender to palpation, surrounding erythema extending from ankle to mid calf. venous stasis changes b/l; erythema improving Neurologic: normal inspection, alert, oriented x3, responsive, motor strength/ tone normal, sensory intact, normal gait, speech normal Skin: warm/dry, well hydrated, normal turgor Microbiology Date/Time Source Procedure Growth Status 12/25/16 14:23 Blood Blood Culture - Preliminary NO GROWTH AFTER 24 HOURS Resulted 12/25/16 14:13 Blood Blood Culture - Preliminary NO GROWTH AFTER 24 HOURS Resulted 12/25/16 19:00 Leg Left Gram Stain - Final Resulted 12/25/16 19:00 Wound Culture - Preliminary Staphylococcus Sp Coag Neg Resulted Laboratory Tests Test 12/27/16 05:00 12/27/16 14:00 White Blood Count 10.8 K/UL (4.8-10.8) Red Blood Count 4.27 M/UL (4.20-5.40) Hemoglobin 10.4 G/DL (12.0-16.0) L Hematocrit 33.0 % (37.0-47.0) L Mean Corpuscular Volume 77 FL (80-99) L Mean Corpuscular Hemoglobin 24.2 PG (27.0-31.0) L Mean Corpuscular Hemoglobin Concent 31.4 G/DL (32.0-36.0) L Red Cell Distribution Width 13.4 % (11.6-14.8) Platelet Count 214 K/UL (150-450) Mean Platelet Volume 10.3 FL (6.5-10.1) H Neutrophils (%) (Auto) 60.7 % (45.0-75.0) Lymphocytes (%) (Auto) 24.8 % (20.0-45.0) Monocytes (%) (Auto) 9.5 % (1.0-10.0) Eosinophils (%) (Auto) 3.8 % (0.0-3.0) H Basophils (%) (Auto) 1.2 % (0.0-2.0) Erythrocyte Sedimentation Rate 59 MM/HR (0-30) H Sodium Level 139 mEQ/L (135-145) Potassium Level 4.2 mEQ/L (3.4-4.9) Chloride Level 99 mEQ/L (98-107) Carbon Dioxide Level 28 mEQ/L (20-30) Anion Gap 12 (5-15) Blood Urea Nitrogen 27 mg/dL (7-23) H Creatinine 1.3 mg/dL (0.5-0.9) H Estimat Glomerular Filtration Rate 49.2 mL/min (>60) Glucose Level 140 mg/dL (74-106) #H Calcium Level 8.9 mg/dL (8.6-10.2) Phosphorus Level 3.7 mg/dL (2.5-4.8) Magnesium Level 1.6 mg/dL (1.7-2.5) L Ferritin 102 ng/mL (13-150) Total Bilirubin 0.4 mg/dL (0.0-1.2) Aspartate Amino Transf (AST/SGOT) 14 U/L (5-40) Alanine Aminotransferase (ALT/SGPT) 9 U/L (3-33) Alkaline Phosphatase 100 U/L (35-104) C-Reactive Protein, Quantitative 3.3 mg/dL (< 0.5) H Total Protein 6.7 g/dL (6.6-8.7) Albumin 3.2 g/dL (3.5-5.2) L Globulin 3.5 g/dL Albumin/Globulin Ratio 0.9 (1.0-2.7) L Urine Color Pale yellow Urine Appearance Slightly cloudy Urine pH 5 (4.5-8.0) Urine Specific [place] 1.010 (1.005-1.035) Urine Protein 3+ (NEGATIVE) H Urine Glucose (UA) 1+ (NEGATIVE) H Urine Ketones Negative (NEGATIVE) Urine Occult Blood Negative (NEGATIVE) Urine Nitrite Negative (NEGATIVE) Urine Bilirubin Negative (NEGATIVE) Urine Urobilinogen Normal MG/DL (0.0-1.0) Urine Leukocyte Esterase Negative (NEGATIVE) Urine RBC 0-2 /HPF (0 - 2) Urine WBC 2-4 /HPF (0 - 2) Urine Squamous Epithelial Cells Many /LPF (NONE/OCC) H Urine Bacteria Few /HPF (NONE) Urine Hyaline Casts 2-4 /LPF (NONE) H Urine Random Sodium 69 mmol/L Current Medications Medications (Trade) Dose Ordered Sig/Alfonso Route PRN Reason Start Time Stop Time Status Last Admin Dose Admin Acetaminophen (Tylenol) 650 mg Q4H PRN ORAL fever 12/25/16 16:00 01/24/17 15:59 Albuterol/ Ipratropium (DuoNeb 0.5-3(2.5)mg/3ml) 3 ml Q4H PRN HHN Shortness of Breath 12/25/16 16:00 12/30/16 15:59 Amlodipine Besylate (Norvasc) 5 mg DAILY ORAL 12/27/16 09:00 01/26/17 08:59 Aspirin (Ecotrin) 81 mg DAILY ORAL 12/26/16 09:00 01/25/17 08:59 12/27/16 09:58 Benazepril HCl (Lotensin) 20 mg DAILY ORAL 12/26/16 09:00 01/25/17 08:59 12/26/16 08:07 Cefazolin Sodium 1 gm/Dextrose 55 ml @ 110 mls/hr EVERY 8 HOURS IVP 12/26/16 18:00 01/02/17 17:59 12/27/16 14:42 Clonidine HCl (Catapres) 0.1 mg Q6H PRN ORAL For High Blood Pressure 12/25/16 21:45 01/24/17 21:44 12/27/16 17:02 Dextrose (Dextrose 50%) STAT PRN IV Hypoglycemia 12/25/16 16:00 01/24/17 15:59 Furosemide (Lasix) 20 mg DAILY ORAL 12/26/16 16:30 01/25/17 16:29 12/27/16 09:57 Glipizide (Glucotrol) 10 mg BIAC ORAL 12/26/16 16:30 01/25/17 16:29 12/27/16 17:01 Heparin Sodium (Porcine) (Heparin 5000 units/ml) 5,000 units EVERY 12 HOURS SUBQ 12/25/16 21:00 01/24/17 20:59 Insulin Aspart (NovoLOG) BEFORE MEALS AND HS SUBQ 12/25/16 16:30 01/24/17 16:29 12/27/16 12:15 Iron Sucrose 100 mg/Sodium Chloride 55 ml @ 200 mls/hr BEDTIME IV 12/27/16 21:00 12/31/16 21:17 Metoprolol Succinate (Toprol XL) 50 mg DAILY ORAL 12/27/16 09:00 01/26/17 08:59 Morphine Sulfate (Morphine Sulfate) 2 mg Q4H PRN IVP Moderate Pain (Pain Scale 4-6) 12/25/16 16:00 01/01/17 15:59 Nitroglycerin (Ntg) 0.4 mg Every 5 Minutes PRN SL Prn Chest Pain 12/25/16 16:00 01/24/17 15:59 Ondansetron HCl (Zofran) 4 mg Q6H PRN IVP Nausea & Vomiting 12/25/16 16:00 01/24/17 15:59 Pantoprazole (Protonix) 40 mg DAILY ORAL 12/26/16 09:00 01/25/17 08:59 Polyethylene Glycol (Miralax) 17 gm DAILYPRN PRN ORAL Constipation 12/25/16 16:00 01/24/17 15:59 Temazepam (Restoril) 15 mg HSPRN PRN ORAL Insomnia 12/25/16 16:00 01/01/17 15:59 Doris Plummer M.D. Dec 27, 2016 20:26
--- NOTE | 2016-12-27 21:00 | Pulmonology Progress Note ---
Assessment/Plan Problems: (1) Cellulitis (2) HTN (hypertension) (3) DM (4) Anemia Assessment/Plan continue abx wound care wound cultures venous studies. Subjective ROS Limited/Unobtainable: No Constitutional: Reports: no symptoms HEENT: Repors: no symptoms Respiratory: Reports: no symptoms Allergies: Coded Allergies: No Known Allergies (Unverified , 01/12/13) Objective Last 24 Hour Vital Signs Date Time Temp Pulse Resp B/P (MAP) Pulse Ox O2 Delivery O2 Flow Rate FiO2 12/27/16 18:49 98.0 63 20 152/73 98 Room Air 12/27/16 17:02 174/72 12/27/16 16:00 97.7 68 20 174/72 98 Room Air 12/27/16 12:00 96.3 74 21 152/74 100 Room Air 12/27/16 09:00 68 128/66 12/27/16 09:00 68 128/66 12/27/16 09:00 128/66 12/27/16 08:00 94.0 68 20 128/66 99 Room Air 12/27/16 04:00 97.3 67 21 134/72 98 Room Air 12/27/16 00:00 98.2 66 20 124/58 99 Room Air Intake and Output 12/27/16 12/28/16 19:00 07:00 Intake Total 535 ml Balance 535 ml Intake Oral 480 ml IV Total 55 ml # Voids 4 General Appearance: WD/WN HEENT: normocephalic, atraumatic Respiratory/Chest: chest wall non-tender, lungs clear Breasts: no masses Cardiovascular: normal peripheral pulses, normal rate Abdomen: normal bowel sounds, soft, non tender Genitourinary: normal external genitalia Extremities: no clubbing Skin: rash 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 Microbiology Date/Time Source Procedure Growth Status 12/25/16 14:23 Blood Blood Culture - Preliminary NO GROWTH AFTER 24 HOURS Resulted 12/25/16 14:13 Blood Blood Culture - Preliminary NO GROWTH AFTER 24 HOURS Resulted 12/25/16 19:00 Leg Left Gram Stain - Final Resulted 12/25/16 19:00 Wound Culture - Preliminary Staphylococcus Sp Coag Neg Resulted Laboratory Tests 12/27/16 05:00: White Blood Count 10.8, Red Blood Count 4.27, Hemoglobin 10.4L, Hematocrit 33.0L , Mean Corpuscular Volume 77L, Mean Corpuscular Hemoglobin 24.2L, Mean Corpuscular Hemoglobin Concent 31.4L, Red Cell Distribution Width 13.4, Platelet Count 214, Mean Platelet Volume 10.3H, Neutrophils (%) (Auto) 60.7, Lymphocytes (%) (Auto) 24.8, Monocytes (%) (Auto) 9.5, Eosinophils (%) (Auto) 3.8H, Basophils (%) (Auto) 1.2, Erythrocyte Sedimentation Rate 59H, Sodium Level 139, Potassium Level 4.2, Chloride Level 99, Carbon Dioxide Level 28, Anion Gap 12, Blood Urea Nitrogen 27H, Creatinine 1.3H, Estimat Glomerular Filtration Rate 49.2, Glucose Level 140#H, Calcium Level 8.9, Phosphorus Level 3.7, Magnesium Level 1.6L, Ferritin 102, Total Bilirubin 0.4, Aspartate Amino Transf (AST/SGOT) 14, Alanine Aminotransferase (ALT/SGPT) 9, Alkaline Phosphatase 100, C-Reactive Protein, Quantitative 3.3H, Total Protein 6.7, Albumin 3.2L, Globulin 3.5, Albumin/Globulin Ratio 0.9L 12/27/16 14:00: Urine Color Pale yellow, Urine Appearance Slightly cloudy, Urine pH 5, Urine Specific [place] 1.010, Urine Protein 3+H, Urine Glucose (UA) 1+H, Urine Ketones Negative, Urine Occult Blood Negative, Urine Nitrite Negative, Urine Bilirubin Negative, Urine Urobilinogen Normal, Urine Leukocyte Esterase Negative , Urine RBC 0-2, Urine WBC 2-4, Urine Squamous Epithelial Cells ManyH, Urine Bacteria Few, Urine Hyaline Casts 2-4H, Urine Random Sodium 69 Current Medications Medications (Trade) Dose Ordered Sig/Alfonso Route PRN Reason Start Time Stop Time Status Last Admin Dose Admin Acetaminophen (Tylenol) 650 mg Q4H PRN ORAL fever 12/25/16 16:00 01/24/17 15:59 Albuterol/ Ipratropium (DuoNeb 0.5-3(2.5)mg/3ml) 3 ml Q4H PRN HHN Shortness of Breath 12/25/16 16:00 12/30/16 15:59 Amlodipine Besylate (Norvasc) 5 mg DAILY ORAL 12/27/16 09:00 01/26/17 08:59 Aspirin (Ecotrin) 81 mg DAILY ORAL 12/26/16 09:00 01/25/17 08:59 12/27/16 09:58 Benazepril HCl (Lotensin) 20 mg DAILY ORAL 12/26/16 09:00 01/25/17 08:59 12/26/16 08:07 Cefazolin Sodium 1 gm/Dextrose 55 ml @ 110 mls/hr EVERY 8 HOURS IVP 12/26/16 18:00 01/02/17 17:59 12/27/16 14:42 Clonidine HCl (Catapres) 0.1 mg Q6H PRN ORAL For High Blood Pressure 12/25/16 21:45 01/24/17 21:44 12/27/16 17:02 Dextrose (Dextrose 50%) STAT PRN IV Hypoglycemia 12/25/16 16:00 01/24/17 15:59 Furosemide (Lasix) 20 mg DAILY ORAL 12/26/16 16:30 01/25/17 16:29 12/27/16 09:57 Glipizide (Glucotrol) 10 mg BIAC ORAL 12/26/16 16:30 01/25/17 16:29 12/27/16 17:01 Heparin Sodium (Porcine) (Heparin 5000 units/ml) 5,000 units EVERY 12 HOURS SUBQ 12/25/16 21:00 01/24/17 20:59 Insulin Aspart (NovoLOG) BEFORE MEALS AND HS SUBQ 12/25/16 16:30 01/24/17 16:29 12/27/16 20:45 Iron Sucrose 100 mg/Sodium Chloride 55 ml @ 200 mls/hr BEDTIME IV 12/27/16 21:00 12/31/16 21:17 Metoprolol Succinate (Toprol XL) 50 mg DAILY ORAL 12/27/16 09:00 01/26/17 08:59 Morphine Sulfate (Morphine Sulfate) 2 mg Q4H PRN IVP Moderate Pain (Pain Scale 4-6) 12/25/16 16:00 01/01/17 15:59 Nitroglycerin (Ntg) 0.4 mg Every 5 Minutes PRN SL Prn Chest Pain 12/25/16 16:00 01/24/17 15:59 Ondansetron HCl (Zofran) 4 mg Q6H PRN IVP Nausea & Vomiting 12/25/16 16:00 01/24/17 15:59 Pantoprazole (Protonix) 40 mg DAILY ORAL 12/26/16 09:00 01/25/17 08:59 Polyethylene Glycol (Miralax) 17 gm DAILYPRN PRN ORAL Constipation 12/25/16 16:00 01/24/17 15:59 Temazepam (Restoril) 15 mg HSPRN PRN ORAL Insomnia 12/25/16 16:00 01/01/17 15:59 CARLOTA PEREZ Dec 27, 2016 21:00
[2016-12-28] VITALS (7 sets, daily range): BP systolic 134–205; BP diastolic 62–85
[2016-12-28] MEDS: ceFAZolin 1gm in D5W 55ml IVP SCH ×2 (05:08→14:42)
[2016-12-28] MEDS: NovoLOG Insulin Flexpen SUBQ SCH ×3 (05:26→16:30)
[2016-12-28] MEDS: GlipiZIDE 10mg tab ORAL SCH ×2 (05:52→17:15)
[2016-12-28] MEDS: Aspirin EC 81mg tab ORAL SCH (08:18)
[2016-12-28] MEDS: Benazepril 10mg tab ORAL SCH (08:18)
[2016-12-28] MEDS: Heparin 5000 units/ml inj SUBQ SCH (08:22)
[2016-12-28] MEDS: Metoprolol Succinate XL 25mg tab ORAL SCH (08:23)
[2016-12-28 08:35] LABS: BASOPHILS % (AUTO) 0.9 % (0.0-2.0); LYMPHOCYTES % (AUTO) 20.8 % (20.0-45.0); MEAN CORPUSCULAR HEMOGLOBIN 24.1 PG (27.0-31.0); MEAN CORPUSCULAR HGB CONC 31.3 G/DL (32.0-36.0); MEAN CORPUSCULAR VOLUME 77 FL (80-99); MEAN PLATELET VOLUME 10.3 FL (6.5-10.1); MONOCYTES % (AUTO) 7.1 % (1.0-10.0); NEUTROPHILS % (AUTO) 67.2 % (45.0-75.0); PLATELET COUNT 252 K/UL (150-450); RED BLOOD COUNT 4.78 M/UL (4.20-5.40); RED CELL DISTRIBUTION WIDTH 13.4 % (11.6-14.8); WHITE BLOOD COUNT 10.6 K/UL (4.8-10.8)
[2016-12-28 08:44] LABS: MAGNESIUM 1.9 mg/dL (1.7-2.5); PHOSPHORUS 3.7 mg/dL (2.5-4.8)
[2016-12-28 08:54] LABS: ALBUMIN/GLOBULIN RATIO 0.9 (1.0-2.7); CALCIUM 9.2 mg/dL (8.6-10.2); CHOLESTEROL/HDL RATIO 2.8 (3.3-4.4); CREATININE 1.1 mg/dL (0.5-0.9); GLOMERULAR FILTRATION RATE 59.8 mL/min (>60); POTASSIUM 4.1 mEQ/L (3.4-4.9); TOTAL PROTEIN 7.3 g/dL (6.6-8.7); URIC ACID 7.6 mg/dL (3.0-7.5)
[2016-12-28 09:13] LABS: HEMOGLOBIN A1C 10.5 % (< 6.0)
--- NOTE | 2016-12-28 10:16 | Consultation ---
Consult Note Consult Note PODIATRY PROGRESS NOTE DATE OF CONSULTATION: 12/28/16 REASON FOR CONSULT: LEFT LEG ULCER HISTORY OF PRESENT ILLNESS: Patient is a 71 year old female with history of left leg ulcer for the past 2 months. Patient states that she was seeing a sheet writer regularly for nail care and he recommended daily dressing changes and elevation. Patient states that the area started increasing in pain, drainage , and redness so she presented to the hospital. No current nausea, vomiting, fevers, or chills PAST MEDICAL HISTORY: T2DM, HTN, PERIPHERAL NEUROPATHY ALLERGIES: No known FAMILY AND SOCIAL HISTORY: No pertinent findings Last 24 Hour Vital Signs Date Time Temp Pulse Resp B/P (MAP) Pulse Ox O2 Delivery O2 Flow Rate FiO2 12/28/16 08:18 161/73 12/28/16 08:00 97.7 69 20 134/62 98 Room Air 12/28/16 04:00 97.5 70 18 161/73 100 Room Air 12/28/16 00:00 97.2 62 18 141/64 100 Room Air 12/27/16 18:49 98.0 63 20 152/73 98 Room Air 12/27/16 17:02 174/72 12/27/16 16:00 97.7 68 20 174/72 98 Room Air 12/27/16 12:00 96.3 74 21 152/74 100 Room Air Laboratory Tests Test 12/27/16 14:00 12/28/16 07:35 Urine Color Pale yellow Urine Appearance Slightly cloudy Urine pH 5 (4.5-8.0) Urine Specific [place] 1.010 (1.005-1.035) Urine Protein 3+ (NEGATIVE) H Urine Glucose (UA) 1+ (NEGATIVE) H Urine Ketones Negative (NEGATIVE) Urine Occult Blood Negative (NEGATIVE) Urine Nitrite Negative (NEGATIVE) Urine Bilirubin Negative (NEGATIVE) Urine Urobilinogen Normal MG/DL (0.0-1.0) Urine Leukocyte Esterase Negative (NEGATIVE) Urine RBC 0-2 /HPF (0 - 2) Urine WBC 2-4 /HPF (0 - 2) Urine Squamous Epithelial Cells Many /LPF (NONE/OCC) H Urine Bacteria Few /HPF (NONE) Urine Hyaline Casts 2-4 /LPF (NONE) H Urine Random Sodium 69 mmol/L White Blood Count 10.6 K/UL (4.8-10.8) Red Blood Count 4.78 M/UL (4.20-5.40) Hemoglobin 11.5 G/DL (12.0-16.0) L Hematocrit 36.8 % (37.0-47.0) L Mean Corpuscular Volume 77 FL (80-99) L Mean Corpuscular Hemoglobin 24.1 PG (27.0-31.0) L Mean Corpuscular Hemoglobin Concent 31.3 G/DL (32.0-36.0) L Red Cell Distribution Width 13.4 % (11.6-14.8) Platelet Count 252 K/UL (150-450) Mean Platelet Volume 10.3 FL (6.5-10.1) H Neutrophils (%) (Auto) 67.2 % (45.0-75.0) Lymphocytes (%) (Auto) 20.8 % (20.0-45.0) Monocytes (%) (Auto) 7.1 % (1.0-10.0) Eosinophils (%) (Auto) 4.0 % (0.0-3.0) H Basophils (%) (Auto) 0.9 % (0.0-2.0) Sodium Level 138 mEQ/L (135-145) Potassium Level 4.1 mEQ/L (3.4-4.9) Chloride Level 99 mEQ/L (98-107) Carbon Dioxide Level 27 mEQ/L (20-30) Anion Gap 12 (5-15) Blood Urea Nitrogen 30 mg/dL (7-23) H Creatinine 1.1 mg/dL (0.5-0.9) H Estimat Glomerular Filtration Rate 59.8 mL/min (>60) Glucose Level 153 mg/dL (74-106) H Hemoglobin A1c 10.5 % (< 6.0) H Uric Acid 7.6 mg/dL (3.0-7.5) H Calcium Level 9.2 mg/dL (8.6-10.2) Phosphorus Level 3.7 mg/dL (2.5-4.8) Magnesium Level 1.9 mg/dL (1.7-2.5) Total Bilirubin 0.4 mg/dL (0.0-1.2) Gamma Glutamyl Transpeptidase 43 U/L (5-36) H Aspartate Amino Transf (AST/SGOT) 17 U/L (5-40) Alanine Aminotransferase (ALT/SGPT) 9 U/L (3-33) Alkaline Phosphatase 106 U/L (35-104) H Total Creatine Kinase 66 U/L (26-140) Pro-B-Type Natriuretic Peptide 191 pg/mL (0-125) H Total Protein 7.3 g/dL (6.6-8.7) Albumin 3.6 g/dL (3.5-5.2) Globulin 3.7 g/dL Albumin/Globulin Ratio 0.9 (1.0-2.7) L Triglycerides Level 134 mg/dL (< 150) Cholesterol Level 160 mg/dL (< 200) LDL Cholesterol 75 mg/dL (60-99) HDL Cholesterol 58 mg/dL (> 60) Cholesterol/HDL Ratio 2.8 (3.3-4.4) L Microbiology Date/Time Source Procedure Growth Status 12/25/16 14:23 Blood Blood Culture - Preliminary NO GROWTH AFTER 48 HOURS Resulted 12/25/16 19:00 Leg Left Gram Stain - Final Resulted 12/25/16 19:00 Wound Culture - Preliminary Staphylococcus Sp Coag Neg Resulted PHYSICAL EXAM: DERM: Left anterior leg with partial thickness ulcer with surrounding erythema, edema, and pain NEURO: Decreased sensation to light touch at bilateral feet VASC: Left foot pedal pulses difficult to palpate. Right foot pedal pulses palpable MSK: Bilateral 3rd toe is shortened. Bilateral bunions and hammertoes. Muscle strength appropriate for age . Assessment/Plan ASSESSMENT & PLAN: - Left anterior leg chronic ulcer. Improving. Continue daily dressing changes with topical antibiotic ointment, non adherent layer, and dry dressings. There is minimal drainage and patient will likely need dressings for 1-2 weeks. Patient will require home health. She is to follow up with her sheet writer next week - Awaiting final culture results. Antibiotics per infectious disease specialist recommendations - Ordering arterial studies. If no occlusion add compression therapy using niurka wrap - Discussed diabetic foot care with the patient - Okay to start discharge planning Lopez Oquendo DPM Dec 28, 2016 10:16
--- NOTE | 2016-12-28 11:54 | Internal Med Progress Note ---
Subjective Date of Service: Dec 28, 2016 Physician Name Weinstein,Kelle Attending Physician Dong Ambriz Current Medications Medications (Trade) Dose Ordered Sig/Alfonso Route PRN Reason Start Time Stop Time Status Last Admin Dose Admin Acetaminophen (Tylenol) 650 mg Q4H PRN ORAL fever 12/25/16 16:00 01/24/17 15:59 Albuterol/ Ipratropium (DuoNeb 0.5-3(2.5)mg/3ml) 3 ml Q4H PRN HHN Shortness of Breath 12/25/16 16:00 12/30/16 15:59 Amlodipine Besylate (Norvasc) 5 mg DAILY ORAL 12/27/16 09:00 01/26/17 08:59 Aspirin (Ecotrin) 81 mg DAILY ORAL 12/26/16 09:00 01/25/17 08:59 12/28/16 08:18 Benazepril HCl (Lotensin) 20 mg DAILY ORAL 12/26/16 09:00 01/25/17 08:59 12/28/16 08:18 Cefazolin Sodium 1 gm/Dextrose 55 ml @ 110 mls/hr EVERY 8 HOURS IVP 12/26/16 18:00 01/02/17 17:59 12/28/16 05:08 Clonidine HCl (Catapres) 0.1 mg Q6H PRN ORAL For High Blood Pressure 12/25/16 21:45 01/24/17 21:44 12/27/16 17:02 Dextrose (Dextrose 50%) STAT PRN IV Hypoglycemia 12/25/16 16:00 01/24/17 15:59 Furosemide (Lasix) 20 mg DAILY ORAL 12/26/16 16:30 01/25/17 16:29 12/28/16 08:17 Glipizide (Glucotrol) 10 mg BIAC ORAL 12/26/16 16:30 01/25/17 16:29 12/28/16 05:52 Heparin Sodium (Porcine) (Heparin 5000 units/ml) 5,000 units EVERY 12 HOURS SUBQ 12/25/16 21:00 01/24/17 20:59 Insulin Aspart (NovoLOG) BEFORE MEALS AND HS SUBQ 12/25/16 16:30 01/24/17 16:29 12/27/16 20:45 Iron Sucrose 100 mg/Sodium Chloride 55 ml @ 200 mls/hr BEDTIME IV 12/27/16 21:00 12/31/16 21:17 Metoprolol Succinate (Toprol XL) 50 mg DAILY ORAL 12/27/16 09:00 01/26/17 08:59 Morphine Sulfate (Morphine Sulfate) 2 mg Q4H PRN IVP Moderate Pain (Pain Scale 4-6) 12/25/16 16:00 01/01/17 15:59 Nitroglycerin (Ntg) 0.4 mg Every 5 Minutes PRN SL Prn Chest Pain 12/25/16 16:00 01/24/17 15:59 Ondansetron HCl (Zofran) 4 mg Q6H PRN IVP Nausea & Vomiting 12/25/16 16:00 01/24/17 15:59 Pantoprazole (Protonix) 40 mg DAILY ORAL 12/26/16 09:00 01/25/17 08:59 Polyethylene Glycol (Miralax) 17 gm DAILYPRN PRN ORAL Constipation 12/25/16 16:00 01/24/17 15:59 Temazepam (Restoril) 15 mg HSPRN PRN ORAL Insomnia 12/25/16 16:00 01/01/17 15:59 Allergies: Coded Allergies: No Known Allergies (Unverified , 01/12/13) ROS Limited/Unobtainable: No Constitutional: Reports: no symptoms HEENT: Reports: no symptoms Cardiovascular: Reports: no symptoms Respiratory: Reports: no symptoms Gastrointestinal/Abdominal: Reports: no symptoms Genitourinary: Reports: no symptoms 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: Reports: no symptoms Subjective 71 YO F admitted with left leg ulcer and cellulitis. Cover for Indra Blancas. Objective Last Vital Signs Date Time Temp Pulse Resp B/P (MAP) Pulse Ox O2 Delivery O2 Flow Rate FiO2 12/28/16 08:18 161/73 12/28/16 08:00 97.7 69 20 98 Room Air Laboratory Tests Test 12/27/16 14:00 12/28/16 07:35 Urine Color Pale yellow Urine Appearance Slightly cloudy Urine pH 5 (4.5-8.0) Urine Specific [place] 1.010 (1.005-1.035) Urine Protein 3+ (NEGATIVE) H Urine Glucose (UA) 1+ (NEGATIVE) H Urine Ketones Negative (NEGATIVE) Urine Occult Blood Negative (NEGATIVE) Urine Nitrite Negative (NEGATIVE) Urine Bilirubin Negative (NEGATIVE) Urine Urobilinogen Normal MG/DL (0.0-1.0) Urine Leukocyte Esterase Negative (NEGATIVE) Urine RBC 0-2 /HPF (0 - 2) Urine WBC 2-4 /HPF (0 - 2) Urine Squamous Epithelial Cells Many /LPF (NONE/OCC) H Urine Bacteria Few /HPF (NONE) Urine Hyaline Casts 2-4 /LPF (NONE) H Urine Random Sodium 69 mmol/L White Blood Count 10.6 K/UL (4.8-10.8) Red Blood Count 4.78 M/UL (4.20-5.40) Hemoglobin 11.5 G/DL (12.0-16.0) L Hematocrit 36.8 % (37.0-47.0) L Mean Corpuscular Volume 77 FL (80-99) L Mean Corpuscular Hemoglobin 24.1 PG (27.0-31.0) L Mean Corpuscular Hemoglobin Concent 31.3 G/DL (32.0-36.0) L Red Cell Distribution Width 13.4 % (11.6-14.8) Platelet Count 252 K/UL (150-450) Mean Platelet Volume 10.3 FL (6.5-10.1) H Neutrophils (%) (Auto) 67.2 % (45.0-75.0) Lymphocytes (%) (Auto) 20.8 % (20.0-45.0) Monocytes (%) (Auto) 7.1 % (1.0-10.0) Eosinophils (%) (Auto) 4.0 % (0.0-3.0) H Basophils (%) (Auto) 0.9 % (0.0-2.0) Sodium Level 138 mEQ/L (135-145) Potassium Level 4.1 mEQ/L (3.4-4.9) Chloride Level 99 mEQ/L (98-107) Carbon Dioxide Level 27 mEQ/L (20-30) Anion Gap 12 (5-15) Blood Urea Nitrogen 30 mg/dL (7-23) H Creatinine 1.1 mg/dL (0.5-0.9) H Estimat Glomerular Filtration Rate 59.8 mL/min (>60) Glucose Level 153 mg/dL (74-106) H Hemoglobin A1c 10.5 % (< 6.0) H Uric Acid 7.6 mg/dL (3.0-7.5) H Calcium Level 9.2 mg/dL (8.6-10.2) Phosphorus Level 3.7 mg/dL (2.5-4.8) Magnesium Level 1.9 mg/dL (1.7-2.5) Total Bilirubin 0.4 mg/dL (0.0-1.2) Gamma Glutamyl Transpeptidase 43 U/L (5-36) H Aspartate Amino Transf (AST/SGOT) 17 U/L (5-40) Alanine Aminotransferase (ALT/SGPT) 9 U/L (3-33) Alkaline Phosphatase 106 U/L (35-104) H Total Creatine Kinase 66 U/L (26-140) Pro-B-Type Natriuretic Peptide 191 pg/mL (0-125) H Total Protein 7.3 g/dL (6.6-8.7) Albumin 3.6 g/dL (3.5-5.2) Globulin 3.7 g/dL Albumin/Globulin Ratio 0.9 (1.0-2.7) L Triglycerides Level 134 mg/dL (< 150) Cholesterol Level 160 mg/dL (< 200) LDL Cholesterol 75 mg/dL (60-99) HDL Cholesterol 58 mg/dL (> 60) Cholesterol/HDL Ratio 2.8 (3.3-4.4) L Microbiology Date/Time Source Procedure Growth Status 12/25/16 14:23 Blood Blood Culture - Preliminary NO GROWTH AFTER 48 HOURS Resulted 12/25/16 14:13 Blood Blood Culture - Preliminary NO GROWTH AFTER 48 HOURS Resulted 12/25/16 19:00 Leg Left Gram Stain - Final Resulted 12/25/16 19:00 Wound Culture - Preliminary Staphylococcus Sp Coag Neg Resulted Objective General Appearance: WD/WN, no apparent distress, alert, obese EENT: PERRL/EOMI, normal ENT inspection Neck: non-tender, normal alignment, supple, normal inspection Cardiovascular: normal peripheral pulses, normal rate, regular rhythm, no gallop/murmur, no JVD Respiratory/Chest: chest wall non-tender, lungs clear, normal breath sounds, no respiratory distress, no accessory muscle use Abdomen: normal bowel sounds, non tender, soft, no organomegaly, no mass Extremities: normal range of motion Neurologic: 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 (2) Diabetes mellitus, type II Assessment & Plan: Cont novolog sliding scale. (3) Renal failure Assessment & Plan: ?diabetic nephropathy? See nephrology note. (4) HTN (hypertension) Assessment & Plan: Cont amlodipine, toprolol and benazepril. (5) Anemia Assessment & Plan: ?chronic renal dis? Follow hgb Status: not improved Assessment/Plan Discharge planning: home health for wound care. KELLE WEINSTEIN Dec 28, 2016 11:54
--- NOTE | 2016-12-28 12:01 | General Progress Note ---
Assessment/Plan Assessment/Plan Renal failure ? Dehydration ? Underlying diabetic nephropathy DM HTN Anemia low MCV IV Iron Adjust BP meds Keep BS in check UA ( has 3+ Proteins) ---- U Na avoid nephrotoxics per orders ? lower level care?? Subjective ROS Limited/Unobtainable: No Constitutional: Reports: malaise Allergies: Coded Allergies: No Known Allergies (Unverified , 01/12/13) Objective Last 24 Hour Vital Signs Date Time Temp Pulse Resp B/P (MAP) Pulse Ox O2 Delivery O2 Flow Rate FiO2 12/28/16 08:18 161/73 12/28/16 08:00 97.7 69 20 134/62 98 Room Air 12/28/16 04:00 97.5 70 18 161/73 100 Room Air 12/28/16 00:00 97.2 62 18 141/64 100 Room Air 12/27/16 18:49 98.0 63 20 152/73 98 Room Air 12/27/16 17:02 174/72 12/27/16 16:00 97.7 68 20 174/72 98 Room Air 12/27/16 12:00 96.3 74 21 152/74 100 Room Air Laboratory Tests 12/27/16 14:00: Urine Color Pale yellow, Urine Appearance Slightly cloudy, Urine pH 5, Urine Specific [place] 1.010, Urine Protein 3+H, Urine Glucose (UA) 1+H, Urine Ketones Negative, Urine Occult Blood Negative, Urine Nitrite Negative, Urine Bilirubin Negative, Urine Urobilinogen Normal, Urine Leukocyte Esterase Negative , Urine RBC 0-2, Urine WBC 2-4, Urine Squamous Epithelial Cells ManyH, Urine Bacteria Few, Urine Hyaline Casts 2-4H, Urine Random Sodium 69 12/28/16 07:35: White Blood Count 10.6, Red Blood Count 4.78, Hemoglobin 11.5L, Hematocrit 36.8L , Mean Corpuscular Volume 77L, Mean Corpuscular Hemoglobin 24.1L, Mean Corpuscular Hemoglobin Concent 31.3L, Red Cell Distribution Width 13.4, Platelet Count 252, Mean Platelet Volume 10.3H, Neutrophils (%) (Auto) 67.2, Lymphocytes (%) (Auto) 20.8, Monocytes (%) (Auto) 7.1, Eosinophils (%) (Auto) 4.0H, Basophils (%) (Auto) 0.9, Sodium Level 138, Potassium Level 4.1, Chloride Level 99, Carbon Dioxide Level 27, Anion Gap 12, Blood Urea Nitrogen 30H, Creatinine 1.1H, Estimat Glomerular Filtration Rate 59.8, Glucose Level 153H, Hemoglobin A1c 10.5H, Uric Acid 7.6H, Calcium Level 9.2, Phosphorus Level 3.7, Magnesium Level 1.9, Total Bilirubin 0.4, Gamma Glutamyl Transpeptidase 43H, Aspartate Amino Transf (AST/SGOT) 17, Alanine Aminotransferase (ALT/SGPT) 9, Alkaline Phosphatase 106H, Total Creatine Kinase 66, Pro-B-Type Natriuretic Peptide 191H, Total Protein 7.3, Albumin 3.6, Globulin 3.7, Albumin/Globulin Ratio 0.9L, Triglycerides Level 134, Cholesterol Level 160, LDL Cholesterol 75, HDL Cholesterol 58, Cholesterol/HDL Ratio 2.8L Height (Feet): 5 Height (Inches): 4.00 Weight (Pounds): 205 General Appearance: no apparent distress Cardiovascular: normal rate Respiratory/Chest: lungs clear Objective no change in PE KIMBER KIM Dec 28, 2016 12:01
[2016-12-28] MEDS ORDERED: CEPHALEXIN500 MG ORAL ×3 (15:23→17:42)
--- NOTE | 2016-12-28 15:26 | Pulmonology Progress Note ---
Assessment/Plan Problems: (1) Cellulitis (2) HTN (hypertension) (3) DM (4) Anemia Assessment/Plan continue abx wound care wound cultures venous studies. dc home with oral abx Subjective ROS Limited/Unobtainable: No Constitutional: Reports: no symptoms HEENT: Repors: no symptoms Respiratory: Reports: no symptoms Cardiovascular: Reports: no symptoms Allergies: Coded Allergies: No Known Allergies (Unverified , 01/12/13) Objective Last 24 Hour Vital Signs Date Time Temp Pulse Resp B/P (MAP) Pulse Ox O2 Delivery O2 Flow Rate FiO2 12/28/16 12:00 97.7 73 18 138/80 98 Room Air 12/28/16 12:00 97.7 73 20 138/80 98 Room Air 12/28/16 08:18 161/73 12/28/16 08:00 97.7 69 20 134/62 98 Room Air 12/28/16 04:00 97.5 70 18 161/73 100 Room Air 12/28/16 00:00 97.2 62 18 141/64 100 Room Air 12/27/16 18:49 98.0 63 20 152/73 98 Room Air 12/27/16 17:02 174/72 12/27/16 16:00 97.7 68 20 174/72 98 Room Air General Appearance: WD/WN HEENT: normocephalic, atraumatic, PERRL Respiratory/Chest: chest wall non-tender, lungs clear Cardiovascular: normal peripheral pulses, normal rate Abdomen: normal bowel sounds, soft, non tender Genitourinary: normal external genitalia Extremities: no cyanosis Skin: no rash 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: 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 normal Lymphatic: no neck adenopathy Musculoskeletal: normal muscle bulk Microbiology Date/Time Source Procedure Growth Status 12/25/16 19:00 Leg Left Gram Stain - Final Resulted 12/25/16 19:00 Wound Culture - Preliminary Staphylococcus Sp Coag Neg Resulted Laboratory Tests 12/28/16 07:35: White Blood Count 10.6, Red Blood Count 4.78, Hemoglobin 11.5L, Hematocrit 36.8L , Mean Corpuscular Volume 77L, Mean Corpuscular Hemoglobin 24.1L, Mean Corpuscular Hemoglobin Concent 31.3L, Red Cell Distribution Width 13.4, Platelet Count 252, Mean Platelet Volume 10.3H, Neutrophils (%) (Auto) 67.2, Lymphocytes (%) (Auto) 20.8, Monocytes (%) (Auto) 7.1, Eosinophils (%) (Auto) 4.0H, Basophils (%) (Auto) 0.9, Sodium Level 138, Potassium Level 4.1, Chloride Level 99, Carbon Dioxide Level 27, Anion Gap 12, Blood Urea Nitrogen 30H, Creatinine 1.1H, Estimat Glomerular Filtration Rate 59.8, Glucose Level 153H, Hemoglobin A1c 10.5H, Uric Acid 7.6H, Calcium Level 9.2, Phosphorus Level 3.7, Magnesium Level 1.9, Total Bilirubin 0.4, Gamma Glutamyl Transpeptidase 43H, Aspartate Amino Transf (AST/SGOT) 17, Alanine Aminotransferase (ALT/SGPT) 9, Alkaline Phosphatase 106H, Total Creatine Kinase 66, Pro-B-Type Natriuretic Peptide 191H, Total Protein 7.3, Albumin 3.6, Globulin 3.7, Albumin/Globulin Ratio 0.9L, Triglycerides Level 134, Cholesterol Level 160, LDL Cholesterol 75, HDL Cholesterol 58, Cholesterol/HDL Ratio 2.8L Current Medications Medications (Trade) Dose Ordered Sig/Alfonso Route PRN Reason Start Time Stop Time Status Last Admin Dose Admin Acetaminophen (Tylenol) 650 mg Q4H PRN ORAL fever 12/25/16 16:00 01/24/17 15:59 Albuterol/ Ipratropium (DuoNeb 0.5-3(2.5)mg/3ml) 3 ml Q4H PRN HHN Shortness of Breath 12/25/16 16:00 12/30/16 15:59 Amlodipine Besylate (Norvasc) 5 mg DAILY ORAL 12/27/16 09:00 01/26/17 08:59 Aspirin (Ecotrin) 81 mg DAILY ORAL 12/26/16 09:00 01/25/17 08:59 12/28/16 08:18 Benazepril HCl (Lotensin) 20 mg DAILY ORAL 12/26/16 09:00 01/25/17 08:59 12/28/16 08:18 Cefazolin Sodium 1 gm/Dextrose 55 ml @ 110 mls/hr EVERY 8 HOURS IVP 12/26/16 18:00 01/02/17 17:59 12/28/16 14:42 Clonidine HCl (Catapres) 0.1 mg Q6H PRN ORAL For High Blood Pressure 12/25/16 21:45 01/24/17 21:44 12/27/16 17:02 Dextrose (Dextrose 50%) STAT PRN IV Hypoglycemia 12/25/16 16:00 01/24/17 15:59 Furosemide (Lasix) 20 mg DAILY ORAL 12/26/16 16:30 01/25/17 16:29 12/28/16 08:17 Glipizide (Glucotrol) 10 mg BIAC ORAL 12/26/16 16:30 01/25/17 16:29 12/28/16 05:52 Heparin Sodium (Porcine) (Heparin 5000 units/ml) 5,000 units EVERY 12 HOURS SUBQ 12/25/16 21:00 01/24/17 20:59 Insulin Aspart (NovoLOG) BEFORE MEALS AND HS SUBQ 12/25/16 16:30 01/24/17 16:29 12/28/16 12:11 Iron Sucrose 100 mg/Sodium Chloride 55 ml @ 200 mls/hr BEDTIME IV 12/27/16 21:00 12/31/16 21:17 Metoprolol Succinate (Toprol XL) 50 mg DAILY ORAL 12/27/16 09:00 01/26/17 08:59 Morphine Sulfate (Morphine Sulfate) 2 mg Q4H PRN IVP Moderate Pain (Pain Scale 4-6) 12/25/16 16:00 01/01/17 15:59 Nitroglycerin (Ntg) 0.4 mg Every 5 Minutes PRN SL Prn Chest Pain 12/25/16 16:00 01/24/17 15:59 Ondansetron HCl (Zofran) 4 mg Q6H PRN IVP Nausea & Vomiting 12/25/16 16:00 01/24/17 15:59 Pantoprazole (Protonix) 40 mg DAILY ORAL 12/26/16 09:00 01/25/17 08:59 Polyethylene Glycol (Miralax) 17 gm DAILYPRN PRN ORAL Constipation 12/25/16 16:00 01/24/17 15:59 Temazepam (Restoril) 15 mg HSPRN PRN ORAL Insomnia 12/25/16 16:00 01/01/17 15:59 CARLOTA PEREZ Dec 28, 2016 15:26
--- NOTE | 2016-12-28 16:59 | Infectious Diseases Prog Note ---
Assessment/Plan Assessment/Plan Abx: Ceftriaxone x1 12/25 IV Vancomcyin 12/25-12/26 IV Cefepime 12/26 IV Ancef 12/26- Assesment: Chronic L leg ulcer with superimposed cellulitis- superficial ulcer.Ulcer in itself doesnt look infected but there is surrounding cellulitis- location of ulcer suggest venous insufficiency; improving -afebrile -wound cx +2 CONS (colonizer) -Bcx NTD Leukocytosis, mild- resolved Mildly elevated ESR/CRP -ESR 59, CRP 3.3 12/27 Dm2 with peripheral neuropathy venous stasis HTN Plan: -Continue IV Ancef #3 (abx # 07/04) for cellulitis -ok to discharge home on Keflex 500mg PO bid to complete above course -f/u final cx -wound care Thank you for this consultation.Will continue to follow along with you Discussed with RN Subjective Allergies: Coded Allergies: No Known Allergies (Unverified , 01/12/13) Subjective afebrile VSS no leukocytos bcx NTD for discharge today Objective Vital Signs Last 24 Hour Vital Signs Date Time Temp Pulse Resp B/P (MAP) Pulse Ox O2 Delivery O2 Flow Rate FiO2 12/28/16 15:57 97.2 76 21 194/85 97 Room Air 12/28/16 15:52 97.5 77 21 205/78 97 Room Air 12/28/16 12:00 97.7 73 18 138/80 98 Room Air 12/28/16 12:00 97.7 73 20 138/80 98 Room Air 12/28/16 08:18 161/73 12/28/16 08:00 97.7 69 20 134/62 98 Room Air 12/28/16 04:00 97.5 70 18 161/73 100 Room Air 12/28/16 00:00 97.2 62 18 141/64 100 Room Air 12/27/16 18:49 98.0 63 20 152/73 98 Room Air 12/27/16 17:02 174/72 Height (Feet): 5 Height (Inches): 4.00 Weight (Pounds): 205 Objective General Appearance: normal inspection, well appearing, HEENT:no oral lesions,PERRL Neck: supple Respiratory: CTA x2 Cardiovascular #1: normal inspection, regular rate, rhythm, no edema, normal capillary refill Gastrointestinal: normal inspection, non tender, soft, non-distended, no guarding Musculoskeletal: normal range of motion, other - Left lower extremity, lateral aspect of distal tib-fib, 2 x 2 superficial ulcer, no drainage, middly tender to palpation, surrounding erythema extending from ankle to mid calf. venous stasis changes b/l; erythema improving Neurologic: normal inspection, alert, oriented x3, responsive, motor strength/ tone normal, sensory intact, normal gait, speech normal Skin: warm/dry, well hydrated, normal turgor Microbiology Date/Time Source Procedure Growth Status 12/25/16 19:00 Leg Left Gram Stain - Final Resulted 12/25/16 19:00 Wound Culture - Preliminary Staphylococcus Sp Coag Neg Resulted Laboratory Tests Test 12/28/16 07:35 White Blood Count 10.6 K/UL (4.8-10.8) Red Blood Count 4.78 M/UL (4.20-5.40) Hemoglobin 11.5 G/DL (12.0-16.0) L Hematocrit 36.8 % (37.0-47.0) L Mean Corpuscular Volume 77 FL (80-99) L Mean Corpuscular Hemoglobin 24.1 PG (27.0-31.0) L Mean Corpuscular Hemoglobin Concent 31.3 G/DL (32.0-36.0) L Red Cell Distribution Width 13.4 % (11.6-14.8) Platelet Count 252 K/UL (150-450) Mean Platelet Volume 10.3 FL (6.5-10.1) H Neutrophils (%) (Auto) 67.2 % (45.0-75.0) Lymphocytes (%) (Auto) 20.8 % (20.0-45.0) Monocytes (%) (Auto) 7.1 % (1.0-10.0) Eosinophils (%) (Auto) 4.0 % (0.0-3.0) H Basophils (%) (Auto) 0.9 % (0.0-2.0) Sodium Level 138 mEQ/L (135-145) Potassium Level 4.1 mEQ/L (3.4-4.9) Chloride Level 99 mEQ/L (98-107) Carbon Dioxide Level 27 mEQ/L (20-30) Anion Gap 12 (5-15) Blood Urea Nitrogen 30 mg/dL (7-23) H Creatinine 1.1 mg/dL (0.5-0.9) H Estimat Glomerular Filtration Rate 59.8 mL/min (>60) Glucose Level 153 mg/dL (74-106) H Hemoglobin A1c 10.5 % (< 6.0) H Uric Acid 7.6 mg/dL (3.0-7.5) H Calcium Level 9.2 mg/dL (8.6-10.2) Phosphorus Level 3.7 mg/dL (2.5-4.8) Magnesium Level 1.9 mg/dL (1.7-2.5) Total Bilirubin 0.4 mg/dL (0.0-1.2) Gamma Glutamyl Transpeptidase 43 U/L (5-36) H Aspartate Amino Transf (AST/SGOT) 17 U/L (5-40) Alanine Aminotransferase (ALT/SGPT) 9 U/L (3-33) Alkaline Phosphatase 106 U/L (35-104) H Total Creatine Kinase 66 U/L (26-140) Pro-B-Type Natriuretic Peptide 191 pg/mL (0-125) H Total Protein 7.3 g/dL (6.6-8.7) Albumin 3.6 g/dL (3.5-5.2) Globulin 3.7 g/dL Albumin/Globulin Ratio 0.9 (1.0-2.7) L Triglycerides Level 134 mg/dL (< 150) Cholesterol Level 160 mg/dL (< 200) LDL Cholesterol 75 mg/dL (60-99) HDL Cholesterol 58 mg/dL (> 60) Cholesterol/HDL Ratio 2.8 (3.3-4.4) L Current Medications Medications (Trade) Dose Ordered Sig/Alfonso Route PRN Reason Start Time Stop Time Status Last Admin Dose Admin Acetaminophen (Tylenol) 650 mg Q4H PRN ORAL fever 12/25/16 16:00 01/24/17 15:59 Albuterol/ Ipratropium (DuoNeb 0.5-3(2.5)mg/3ml) 3 ml Q4H PRN HHN Shortness of Breath 12/25/16 16:00 12/30/16 15:59 Amlodipine Besylate (Norvasc) 5 mg DAILY ORAL 12/27/16 09:00 01/26/17 08:59 Aspirin (Ecotrin) 81 mg DAILY ORAL 12/26/16 09:00 01/25/17 08:59 12/28/16 08:18 Benazepril HCl (Lotensin) 20 mg DAILY ORAL 12/26/16 09:00 01/25/17 08:59 12/28/16 08:18 Cefazolin Sodium 1 gm/Dextrose 55 ml @ 110 mls/hr EVERY 8 HOURS IVP 12/26/16 18:00 01/02/17 17:59 12/28/16 14:42 Clonidine HCl (Catapres) 0.1 mg Q6H PRN ORAL For High Blood Pressure 12/25/16 21:45 01/24/17 21:44 12/27/16 17:02 Dextrose (Dextrose 50%) STAT PRN IV Hypoglycemia 12/25/16 16:00 01/24/17 15:59 Furosemide (Lasix) 20 mg DAILY ORAL 12/26/16 16:30 01/25/17 16:29 12/28/16 08:17 Glipizide (Glucotrol) 10 mg BIAC ORAL 12/26/16 16:30 01/25/17 16:29 12/28/16 05:52 Heparin Sodium (Porcine) (Heparin 5000 units/ml) 5,000 units EVERY 12 HOURS SUBQ 12/25/16 21:00 01/24/17 20:59 Insulin Aspart (NovoLOG) BEFORE MEALS AND HS SUBQ 12/25/16 16:30 01/24/17 16:29 12/28/16 12:11 Iron Sucrose 100 mg/Sodium Chloride 55 ml @ 200 mls/hr BEDTIME IV 12/27/16 21:00 12/31/16 21:17 Metoprolol Succinate (Toprol XL) 50 mg DAILY ORAL 12/27/16 09:00 01/26/17 08:59 Morphine Sulfate (Morphine Sulfate) 2 mg Q4H PRN IVP Moderate Pain (Pain Scale 4-6) 12/25/16 16:00 01/01/17 15:59 Nitroglycerin (Ntg) 0.4 mg Every 5 Minutes PRN SL Prn Chest Pain 12/25/16 16:00 01/24/17 15:59 Ondansetron HCl (Zofran) 4 mg Q6H PRN IVP Nausea & Vomiting 12/25/16 16:00 01/24/17 15:59 Pantoprazole (Protonix) 40 mg DAILY ORAL 12/26/16 09:00 01/25/17 08:59 Polyethylene Glycol (Miralax) 17 gm DAILYPRN PRN ORAL Constipation 12/25/16 16:00 01/24/17 15:59 Temazepam (Restoril) 15 mg HSPRN PRN ORAL Insomnia 12/25/16 16:00 01/01/17 15:59 Doris Plummer M.D. Dec 28, 2016 16:59
[2016-12-28] MEDS ORDERED: Tubing IV Secondary IV ONE (20:44)
[2016-12-29 12:48] LABS: OTHERS PATHOLOGIST COMMENT
--- NOTE | 2016-12-30 06:16 | Discharge Summary 2 SIG ---
DATE OF ADMISSION: 12/25/2016 DATE OF DISCHARGE: 12/28/2016 CONSULTANTS: 1. Doris Plummer M.D. 2. Jose Manuel Sawyer M.D. 3. Lopez Oquendo DPM. Brief Hospital Course: The patient is a 71-year-old female with history of hypertension and diabetes, presented to ED complaining of left lower leg ulcer with redness and pain for two months. The patient has not sought medical care and ulcer had yellow purulent discharge with pain and redness to the lower leg extending to mid calf. On evaluation at ED, left lower extremity lateral aspect of the distal tibia-fibula showed a 2 x 2 superficial ulcer with purulent drainage. The leg is tender to palpation with surrounding erythema extending from ankle to mid calf. There was no crepitus. Distal pulses were intact. She was started on IV antibiotics for concerns of diabetic ulcer/cellulitis. Blood work showed elevated WBC of 11.13. Lactic acid was 1.3. She was then admitted to medical floor for cellulitis. She was initially given IV ceftriaxone and vancomycin. Antibiotic was switched to IV Ancef. Venous duplex of lower extremity showed deep patent venous system bilaterally. She had elevated creatinine. UA has 3+ proteins. The patient had acute renal failure possibly secondary to dehydration with underlying diabetic nephropathy. She had anemia with low MCV and was given IV iron. She underwent evaluation by Dr. Oquendo. She was recommended daily dressing and compression using Onur wrap. She was given diabetic foot care education. Wound culture showed +2 coagulase-negative Staph. Blood culture did not isolate any growth. She was eventually cleared for discharge to complete p.o. antibiotic. FINAL DIAGNOSES: 1. Leg cellulitis. 2. Hypertension. 3. Diabetes mellitus with possible diabetic nephropathy. 4. Anemia. 5. Acute on chronic renal failure secondary to dehydration and possible underlying diabetic nephropathy. 6. Anemia with low mean corpuscular volume. 7. Chronic left leg ulcer with superimposed cellulitis. 8. Diabetes 2 with peripheral neuropathy. 9. Venous stasis. DISPOSITION: The patient was discharged home with home health. Discharge Medication: Continue Keflex 500 mg b.i.d. for six days. Refer to medication list. FOLLOWUP: The patient was advised to follow up with PMD in a week. Dong Ambriz M.D. I have been assigned to dictate discharge summary on this account and I was not involved in the patient's management. Carolyn Patterson N.P. DR: DEION JOB#: [id number] CC:
--- NOTE | 2016-12-30 11:07 | Diagnostic Imaging Report ---
APPROVED REPORT CPT Code: 65534 Symptoms Comments: R/O PAD BILATERAL: Common femoral artery waveform analysis is within normal limits at rest. Color flow duplex sonography reveals minimal calcification throughout the superficial femoral and popliteal arteries. There is no evidence of stenosis or occlusion within these segments. The posterior tibial, and dorsalis pedis arteries are patent. Doppler tibial artery waveform analyses are within normal limits, bilaterally. There is no evidence of hemodynamically significant arterial occlusive disease, bilaterally.
== END 2016-12-28 20:45 | disposition home health service (06) | DRG 603 ==
LOC: EMR 14:47 → EDBEDREQ 15:25 → 4E 15:58
DX: L03.116 Cellulitis of left lower limb (principal); N17.9 Acute kidney failure, unspecified; E11.21 Type 2 diabetes mellitus with diabetic nephropathy; E11.42 Type 2 diabetes mellitus with diabetic polyneuropathy; L97.229 Non-pressure chronic ulcer of left calf with unspecified severity; E11.622 Type 2 diabetes mellitus with other skin ulcer; E11.22 Type 2 diabetes mellitus with diabetic chronic kidney disease; I12.9 Hypertensive chronic kidney disease with stage 1 through stage 4 chronic kidney disease, or unspecified chronic kidney disease; N18.9 Chronic kidney disease, unspecified; E86.0 Dehydration; I87.8 Other specified disorders of veins; Z79.4 Long term (current) use of insulin
CPT/HCPCS: 36415; 80053; 80061; 81001; 82270; 82378; 82550; 82607; 82728; 82746; 82962; 82977; 83036; 83540; 83550; 83605; 83615; 83735; 83880; 84100; 84300; 84550; 85007; 85025; 85044; 85060; 85610; 85651; 85730; 86140; 87040; 87070; 87205; 93005; 93925; 93970; 99285; J1815

== ENCOUNTER 2017-04-21 01:24 | Emergency (ER) | payer MEDICARE, OTHER ==
[~2017-04-21] VITALS: Ht 162.6 cm; Wt 88.9 kg
[~2017-04-21 01:24] MED LIST changes: +CEPHALEXIN500 MG ORAL
[2017-04-21 01:35] VITALS: BP 140/78
[2017-04-21] MEDS ORDERED: AZITHROMYCIN250 MG ORAL (01:49)
--- NOTE | 2017-04-21 01:49 | Emergency Room Report ---
History of Present Illness General Chief Complaint: Upper Respiratory Illness Source: Patient Present Illness HPI Is a 71-year-old female with history of diabetes. She presents with chief complaint of cough productive of phlegm for the last month. No fever chills been no nausea no vomiting. Denies any other complaint. Seen her who prescribed cough medicine but she didn't use it because of her diabetes. Denies any other complaint. Allergies: Coded Allergies: No Known Allergies (Unverified , 01/12/13) Patient History Past Medical History: see triage record, old chart reviewed Past Surgical History: none Pertinent Family History: none Social History: Denies: smoking Last Menstrual Period: na Now: No Immunizations: other Reviewed Nursing Documentation: PMH: Agreed, PSxH: Agreed Nursing Documentation-PMH Hx Cardiac Problems: No Hx Hypertension: Yes Hx Asthma: No Hx Diabetes: Yes Hx Cancer: No Hx Gastrointestinal Problems: No Hx Neurological Problems: No Hx Peripheral Neuropathy: Yes - S/P RIGHT FOOT SURGERY 02/2013 Review of Systems Eye: Denies: eye pain, blurred vision ENT: Denies: ear pain, nose congestion, throat swelling Respiratory: Reports: cough, sputum, Denies: shortness of breath Cardiovascular: Denies: chest pain, palpitations Gastrointestinal: Denies: abdominal pain, diarrhea, nausea, vomiting Musculoskeletal: Denies: back pain, joint pain Skin: Denies: rash Neurological: Denies: headache, numbness Endocrine: Denies: increased thirst, increased urine Hematologic/Lymphatic: Denies: easy bruising All Other Systems: negative except mentioned in HPI Physical Exam Vital Signs Date Time Temp Pulse Resp B/P (MAP) Pulse Ox O2 Delivery O2 Flow Rate FiO2 04/21/17 01:27 97.3 77 12 185/61 95 Room Air vitals with high blood pressure Sp02 EP Interpretation: reviewed, normal General Appearance: well appearing, no apparent distress, alert Head: normocephalic, atraumatic Eyes: bilateral eye PERRL, bilateral eye EOMI ENT: hearing grossly normal, normal pharynx Neck: full range of motion, supple, no meningismus Respiratory: chest non-tender, lungs clear, normal breath sounds Cardiovascular #1: regular rate, rhythm, no murmur Gastrointestinal: normal bowel sounds, non tender, no mass, no organomegaly, no bruit, non-distended Musculoskeletal: back normal, gait/station normal, normal range of motion Psychiatric: mood/affect normal Skin: warm/dry Medical Decision Making Diagnostic Impression: Primary Impression: Upper respiratory infection Qualified Codes: J06.9 - Acute upper respiratory infection, unspecified ER Course Patient with a cough productive of sputum for a month now. Lungs are clear however. Because of the duration, I will put her on antibiotics. No evidence of sepsis, pneumonia, PE or dissection. Last Vital Signs Date Time Temp Pulse Resp B/P (MAP) Pulse Ox O2 Delivery O2 Flow Rate FiO2 04/21/17 01:27 97.3 77 12 185/61 95 Room Air Status: unchanged Disposition: HOME, SELF-CARE Condition: Stable Scripts Azithromycin* (ZITHROMAX*) 250 Mg Tablet 250 MG ORAL DAILY, #6 TAB 0 Refills Take two tablets by mouth today, then take one tablet by mouth daily for four days Prov: ARDEN HONG M.D. 04/21/17 Patient Instructions: Upper Respiratory Infection, Adult Additional Instructions: Followup with your Dr. in 7 days. Return if worse. ARDEN HONG M.D. Apr 21, 2017 01:49
[2017-04-21 02:00] VITALS: BP 138/74
[2017-04-21 02:03] VITALS: BP 138/74
== END 2017-04-21 02:03 | disposition home or self-care (01) ==
LOC: EMR 01:48
DX: J06.9 Acute upper respiratory infection, unspecified (principal); E11.9 Type 2 diabetes mellitus without complications; I10 Essential (primary) hypertension
CPT/HCPCS: 99283

== ENCOUNTER 2017-07-08 22:43 | Inpatient (IN) | payer MEDICARE ==
[~2017-07-08] VITALS: Ht 162.6 cm; Wt 92.5 kg
[~2017-07-08 22:43] MED LIST changes: +AZITHROMYCIN250 MG ORAL
[2017-07-08 23:20] VITALS: BP 175/65
[2017-07-08 23:35] LABS: APPEARANCE,URINE SLIGHTLY CLOUDY; BILIRUBIN, URINE NEGATIVE (NEGATIVE); COLOR,URINE PALE YELLOW; KETONES,URINE NEGATIVE (NEGATIVE); NITRITE,URINE NEGATIVE (NEGATIVE); UROBILINOGEN,URINE NORMAL MG/DL (0.0-1.0)
[2017-07-08 23:38] LABS: GLUCOSE, URINE (UA) 4+ (NEGATIVE); LEUKOCYTE ESTERASE ,URINE 1+ (NEGATIVE); PH,URINE 5 (4.5-8.0); PROTEIN,URINE 4+ (NEGATIVE)
[2017-07-08] MEDS ORDERED: KEFLEX500 MG ORAL (23:58)
[2017-07-09] VITALS (9 sets, daily range): BP systolic 131–188; BP diastolic 54–78
[2017-07-09] LABS: BASOPHILS % (AUTO) 0.8 % (0.0-2.0); EOSINOPHILS % (AUTO) 0.6 % (0.0-3.0); HEMATOCRIT 36.6 % (37.0-47.0); HEMOGLOBIN 11.5 G/DL (12.0-16.0); LYMPHOCYTES % (AUTO) 13.2 % (20.0-45.0); MEAN CORPUSCULAR VOLUME 76 FL (80-99); MONOCYTES % (AUTO) 6.3 % (1.0-10.0); NEUTROPHILS % (AUTO) 79.1 % (45.0-75.0); PLATELET COUNT 231 K/UL (150-450); RED BLOOD COUNT 4.84 M/UL (4.20-5.40); RED CELL DISTRIBUTION WIDTH 13.7 % (11.6-14.8); WHITE BLOOD COUNT 15.4 K/UL (4.8-10.8)
--- NOTE | 2017-07-09 00:22 | Emergency Room Report ---
History of Present Illness General Chief Complaint: Skin Rash/Abscess Source: Patient, Medical Record Present Illness HPI 71-year-old female with diabetes presenting with left lower extremity pain swelling redness for the last 5 days. Patient saw her PMD 2 days ago and was prescribed Keflex, patient took 2 doses. Son states that when he got home today patient seemed a little altered. And dehydrated. Son states that the wound looks the same not necessarily worse but not getting better. Denies any fever chills Allergies: Coded Allergies: No Known Allergies (Unverified , 01/12/13) Patient History Past Medical History: see triage record Past Surgical History: none Pertinent Family History: none Last Menstrual Period: none Now: No : 1 Para: 1 Reviewed Nursing Documentation: PMH: Agreed; PSxH: Agreed Nursing Documentation-PMH Hx Cardiac Problems: No Hx Hypertension: Yes Hx Asthma: No Hx Diabetes: Yes Hx Cancer: No Hx Gastrointestinal Problems: No Hx Neurological Problems: No Hx Peripheral Neuropathy: Yes - S/P RIGHT FOOT SURGERY 02/2013 Review of Systems All Other Systems: negative except mentioned in HPI Physical Exam Vital Signs Date Time Temp Pulse Resp B/P (MAP) Pulse Ox O2 Delivery O2 Flow Rate FiO2 07/08/17 22:44 98.3 96 18 181/74 92 Room Air 98.2 Sp02 EP Interpretation: reviewed, normal General Appearance: alert, GCS 15, moderate distress Head: normocephalic, atraumatic Eyes: bilateral eye normal inspection, bilateral eye PERRL, bilateral eye EOMI ENT: normal ENT inspection, normal pharynx, normal voice, moist mucus membranes Neck: normal inspection, full range of motion, supple Respiratory: normal inspection, lungs clear, normal breath sounds, no respiratory distress, no retraction, no wheezing, speaking full sentences, chest symmetrical Cardiovascular #1: normal inspection, regular rate, rhythm, no edema, normal capillary refill Cardiovascular #2: 2+ radial (R), 2+ radial (L) Gastrointestinal: normal inspection, non tender, soft, non-distended, no guarding Musculoskeletal: other - Left lower chimney with anterior tib-fib redness swelling, erythematous rash, tender to palpation, no crepitus Neurologic: normal inspection, alert, oriented x3, responsive, motor strength/ tone normal, sensory intact, normal gait, speech normal Psychiatric: normal inspection, judgement/insight normal, memory normal Skin: normal inspection, normal color, no rash, warm/dry, well hydrated, normal turgor Medical Decision Making Diagnostic Impression: Primary Impression: Cellulitis Additional Impressions: Diabetes mellitus, type II Renal insufficiency Hyperkalemia ER Course 71-year-old female with redness/swelling to L leg for 5 days DDX: Cellulitis No crepitus / pain out of proportion / rapid spreading for concern for nec fasc Plan: Labs Antibiotics Anticipate admission ER course: Patient received antibiotics for cellulitis. Ceftriaxone and doxycycline, fluids Disposition: Patient is to be admitted to [facility] for cellulitis DW Dr Blancas Please note that this Emergency Department Report was dictated using [employer] manager technology software, occasionally this can lead to erroneous entry secondary to interpretation by the dictation equipment. EKG Diagnostic Results EP Interpretation: Yes Rate: normal Rhythm: NSR ST Segments: No acute changes ASA given to patient: No Rhythm Strip EP Interpretation: Yes Rate: 90 Rhythm: NSR, no PVCs, no ectopy Laboratory Tests Test 07/08/17 23:00 07/08/17 23:15 Urine Color Pale yellow Urine Appearance Slightly cloudy Urine pH 5 (4.5-8.0) Urine Specific [place] 1.015 (1.005-1.035) Urine Protein 4+ (NEGATIVE) H Urine Glucose (UA) 4+ (NEGATIVE) H Urine Ketones Negative (NEGATIVE) Urine Occult Blood 1+ (NEGATIVE) H Urine Nitrite Negative (NEGATIVE) Urine Bilirubin Negative (NEGATIVE) Urine Urobilinogen Normal MG/DL (0.0-1.0) Urine Leukocyte Esterase 1+ (NEGATIVE) H Urine RBC 0-2 /HPF (0 - 2) Urine WBC 2-4 /HPF (0 - 2) Urine Squamous Epithelial Cells Few /LPF (NONE/OCC) Urine Amorphous Sediment Few /LPF (NONE) H Urine Bacteria Few /HPF (NONE) White Blood Count 15.4 K/UL (4.8-10.8) H Red Blood Count 4.84 M/UL (4.20-5.40) Hemoglobin 11.5 G/DL (12.0-16.0) L Hematocrit 36.6 % (37.0-47.0) L Mean Corpuscular Volume 76 FL (80-99) L Mean Corpuscular Hemoglobin 23.8 PG (27.0-31.0) L Mean Corpuscular Hemoglobin Concent 31.5 G/DL (32.0-36.0) L Red Cell Distribution Width 13.7 % (11.6-14.8) Platelet Count 231 K/UL (150-450) Mean Platelet Volume 9.5 FL (6.5-10.1) Neutrophils (%) (Auto) 79.1 % (45.0-75.0) H Lymphocytes (%) (Auto) 13.2 % (20.0-45.0) L Monocytes (%) (Auto) 6.3 % (1.0-10.0) Eosinophils (%) (Auto) 0.6 % (0.0-3.0) Basophils (%) (Auto) 0.8 % (0.0-2.0) Prothrombin Time 10.0 SEC (9.30-11.50) Prothrombin Time INR 1.0 (0.9-1.1) PTT 30 SEC (23-33) Sodium Level 135 MMOL/L (136-145) L Potassium Level 5.4 MMOL/L (3.5-5.1) H Chloride Level 99 MMOL/L (98-107) Carbon Dioxide Level 29 MMOL/L (21-32) Anion Gap 7 mmol/L (5-15) Blood Urea Nitrogen 29 mg/dL (7-18) H Creatinine 1.4 MG/DL (0.55-1.30) H Estimate Glomerular Filtration Rate 45.1 mL/min (>60) Glucose Level 393 MG/DL (74-106) H Lactic Acid Level 1.50 mmol/L (0.66-2.22) Calcium Level 8.8 MG/DL (8.5-10.1) Total Bilirubin 0.6 MG/DL (0.2-1.0) Aspartate Amino Transferase (AST) 25 U/L (15-37) Alanine Aminotransferase (ALT) 17 U/L (12-78) Alkaline Phosphatase 123 U/L (46-116) H Pro-B-Type Natriuretic Peptide 721 pg/mL (0-125) H Total Protein 7.5 G/DL (6.4-8.2) Albumin 2.8 G/DL (3.4-5.0) L Globulin 4.7 g/dL Albumin/Globulin Ratio 0.6 (1.0-2.7) L Last Vital Signs Date Time Temp Pulse Resp B/P (MAP) Pulse Ox O2 Delivery O2 Flow Rate FiO2 07/08/17 23:20 98.2 98 18 175/65 96 Room Air 98.2 Disposition: ADMITTED INPATIENT Condition: Serious Referrals: ELAINE TAYLOR [facility],REFERRING (PCP) Veronica Vicente M.D. Jul 09, 2017 00:22
[2017-07-09 00:26] LABS: ANION GAP 7 mmol/L (5-15); BLOOD UREA NITROGEN 29 mg/dL (7-18); CALCIUM 8.8 MG/DL (8.5-10.1); CARBON DIOXIDE 29 MMOL/L (21-32); CHLORIDE 99 MMOL/L (98-107); CREATININE 1.4 MG/DL (0.55-1.30); POTASSIUM 5.4 MMOL/L (3.5-5.1); SODIUM 135 MMOL/L (136-145)
[2017-07-09 00:27] LABS: ALBUMIN 2.8 G/DL (3.4-5.0)
[2017-07-09] MEDS ORDERED: Doxycycline Hyclate 100 MG in D5W 110 ML IVPB ONE (00:30)
[2017-07-09] MEDS ORDERED: cefTRIAXone 1 GM in NS 55 ML IVPB ONE (00:30)
[2017-07-09] MEDS ORDERED: Sodium Bicarbonate 50ml Carp IV ONE (00:30)
[2017-07-09 00:46] LABS: ALANINE AMINOTRANSFERASE 17 U/L (12-78); ALBUMIN/GLOBULIN RATIO 0.6 (1.0-2.7); ALKALINE PHOSPHATASE 123 U/L (46-116); ASPARTATE AMINO TRANSFERASE 25 U/L (15-37); BILIRUBIN,TOTAL 0.6 MG/DL (0.2-1.0)
[2017-07-09] MEDS ORDERED: LISINOPRIL-HCT1 EACH ORAL (02:24)
[2017-07-09] MEDS ORDERED: Norco 5mg/325mg tab ORAL PRN (08:45)
[2017-07-09] MEDS ORDERED: GLIPIZIDE5 MG ORAL (09:03)
[2017-07-09] MEDS: Lisinopril 10mg tab ORAL SCH (09:52)
[2017-07-09] MEDS: hydroCHLOROthiazide 12.5mg TAB ORAL SCH (09:52)
[2017-07-09] MEDS ORDERED: Vancomycin 1.5 GM/D5W 250ML IVPB ONE (11:00)
[2017-07-09] MEDS: NovoLOG Insulin Flexpen SUBQ SCH ×3 (11:32→20:53)
[2017-07-09] MEDS: Heparin 5000 units/ml inj SUBQ SCH ×2 (13:58→20:54)
--- NOTE | 2017-07-09 14:10 | Consultation ---
History of Present Illness General Chief Complaint: Skin Rash/Abscess Present Illness Allergies: Coded Allergies: No Known Allergies (Unverified , 01/12/13) Medication History Scheduled Cephalexin* (Keflex*), 500 MG ORAL EVERY 6 HOURS, (Reported) Glipizide* (Glipizide*), 10 MG ORAL BIDAC, (Reported) Lisinopril/Hydrochlorothiazide 10-12.5 Mg Tab (Lisinopril-Hctz 10-12.5 Mg Tab), 1 TAB ORAL DAILY, (Reported) Discontinued Medications Glipizide (Glipizide Er), 10 MG PO BIDAC, (Reported) Discontinued Reason: Medication dose changed Insulin Aspart* (Novolog*), 0 SUBQ AC+HS, (Reported) Discontinued Reason: Pt stopped taking med Metoprolol Succinate* (Metoprolol Succinate*), 25 MG ORAL DAILY, (Reported) Discontinued Reason: Therapy completed Patient History Healthcare decision maker Resuscitation status Advanced Directive on File Physical Exam Last 24 Hour Vital Signs Date Time Temp Pulse Resp B/P (MAP) Pulse Ox O2 Delivery O2 Flow Rate FiO2 07/09/17 12:00 97.9 87 18 151/63 96 Room Air 97.9 07/09/17 09:52 131/78 07/09/17 09:52 89 131/78 07/09/17 08:00 97.4 89 17 131/78 99 Room Air 97.4 07/09/17 04:00 98.9 89 18 158/78 97 Room Air 98.9 07/09/17 03:10 98.4 81 16 156/73 97 Room Air 98.4 07/09/17 02:20 98.4 81 16 156/73 97 Room Air 98.4 07/09/17 01:32 188/77 07/09/17 01:20 98.6 82 18 160/75 98 Room Air 98.6 07/09/17 00:20 98.2 88 18 188/77 96 Room Air 98.2 07/08/17 23:20 98.2 98 18 175/65 96 Room Air 98.2 07/08/17 22:44 98.3 96 18 181/74 92 Room Air 98.2 Intake and Output 07/08/17 07/09/17 19:00 07:00 Intake Total 165 ml Balance 165 ml Intake IV Total 165 ml # Voids 1 # Bowel Movements 1 Laboratory Tests Test 07/08/17 23:00 07/08/17 23:15 07/09/17 09:50 Urine Color Pale yellow Urine Appearance Slightly cloudy Urine pH 5 (4.5-8.0) Urine Specific [place] 1.015 (1.005-1.035) Urine Protein 4+ (NEGATIVE) H Urine Glucose (UA) 4+ (NEGATIVE) H Urine Ketones Negative (NEGATIVE) Urine Occult Blood 1+ (NEGATIVE) H Urine Nitrite Negative (NEGATIVE) Urine Bilirubin Negative (NEGATIVE) Urine Urobilinogen Normal MG/DL (0.0-1.0) Urine Leukocyte Esterase 1+ (NEGATIVE) H Urine RBC 0-2 /HPF (0 - 2) Urine WBC 2-4 /HPF (0 - 2) Urine Squamous Epithelial Cells Few /LPF (NONE/OCC) Urine Amorphous Sediment Few /LPF (NONE) H Urine Bacteria Few /HPF (NONE) White Blood Count 15.4 K/UL (4.8-10.8) H Red Blood Count 4.84 M/UL (4.20-5.40) Hemoglobin 11.5 G/DL (12.0-16.0) L Hematocrit 36.6 % (37.0-47.0) L Mean Corpuscular Volume 76 FL (80-99) L Mean Corpuscular Hemoglobin 23.8 PG (27.0-31.0) L Mean Corpuscular Hemoglobin Concent 31.5 G/DL (32.0-36.0) L Red Cell Distribution Width 13.7 % (11.6-14.8) Platelet Count 231 K/UL (150-450) Mean Platelet Volume 9.5 FL (6.5-10.1) Neutrophils (%) (Auto) 79.1 % (45.0-75.0) H Lymphocytes (%) (Auto) 13.2 % (20.0-45.0) L Monocytes (%) (Auto) 6.3 % (1.0-10.0) Eosinophils (%) (Auto) 0.6 % (0.0-3.0) Basophils (%) (Auto) 0.8 % (0.0-2.0) Prothrombin Time 10.0 SEC (9.30-11.50) Prothromb Time International Ratio 1.0 (0.9-1.1) Activated Partial Thromboplast Time 30 SEC (23-33) Sodium Level 135 MMOL/L (136-145) L Potassium Level 5.4 MMOL/L (3.5-5.1) H Chloride Level 99 MMOL/L (98-107) Carbon Dioxide Level 29 MMOL/L (21-32) Anion Gap 7 mmol/L (5-15) Blood Urea Nitrogen 29 mg/dL (7-18) H Creatinine 1.4 MG/DL (0.55-1.30) H Estimat Glomerular Filtration Rate 45.1 mL/min (>60) Glucose Level 393 MG/DL (74-106) H Lactic Acid Level 1.50 mmol/L (0.66-2.22) Calcium Level 8.8 MG/DL (8.5-10.1) Total Bilirubin 0.6 MG/DL (0.2-1.0) Aspartate Amino Transf (AST/SGOT) 25 U/L (15-37) Alanine Aminotransferase (ALT/SGPT) 17 U/L (12-78) Alkaline Phosphatase 123 U/L (46-116) H Pro-B-Type Natriuretic Peptide 721 pg/mL (0-125) H Total Protein 7.5 G/DL (6.4-8.2) Albumin 2.8 G/DL (3.4-5.0) L Globulin 4.7 g/dL Albumin/Globulin Ratio 0.6 (1.0-2.7) L Hemoglobin A1c 10.3 % (4.3-6.0) H Height (Feet): 5 Height (Inches): 4.00 Weight (Pounds): 204 Medications Current Medications Medications (Trade) Dose Ordered Sig/Alfonso Route PRN Reason Start Time Stop Time Status Last Admin Dose Admin Acetaminophen (Tylenol) 650 mg Q4H PRN ORAL Mild Pain/Temp > 100.5 07/09/17 08:45 08/08/17 08:44 Acetaminophen/ Hydrocodone Bitart ([place] 5/325) 1 tab Q6H PRN ORAL PAIN 4-10 07/09/17 08:45 07/16/17 08:44 Carvedilol (Coreg) 3.125 mg EVERY 12 HOURS ORAL 07/09/17 09:00 08/08/17 08:59 07/09/17 09:52 Ceftriaxone Sodium 1 gm/ Dextrose 110 ml @ 220 mls/hr Q24H IVPB 07/09/17 23:00 07/16/17 22:59 Clonidine HCl (Catapres Tab) 0.1 mg EVERY 6 HOURS PRN ORAL SBP > 160mmHg 07/09/17 08:45 08/08/17 08:44 Dextrose (Dextrose 50%) 25 ml STAT PRN IV Hypoglycemia 07/09/17 08:45 08/08/17 08:44 Dextrose (Dextrose 50%) 50 ml STAT PRN IV Hypoglycemia 07/09/17 08:45 08/08/17 08:44 Glipizide (Glucotrol) 10 mg BIAC ORAL 07/09/17 16:30 08/08/17 16:29 Heparin Sodium (Porcine) (Heparin 5000 units/ml) 5,000 units EVERY 8 HOURS SUBQ 07/09/17 14:00 08/08/17 13:59 07/09/17 13:58 Hydrochlorothiazide (Hydrodiuril) 12.5 mg DAILY ORAL 07/09/17 09:15 08/08/17 09:14 07/09/17 09:52 Insulin Aspart (NovoLOG) BEFORE MEALS AND HS SUBQ 07/09/17 11:30 08/08/17 11:29 07/09/17 11:32 Lisinopril (Zestril) 10 mg DAILY ORAL 07/09/17 09:15 08/08/17 09:14 07/09/17 09:52 Ondansetron HCl (Zofran) 4 mg Q4H PRN IVP Nausea & Vomiting 07/09/17 08:45 08/08/17 08:44 Vancomycin HCl (Vanco rx to dose) 1 ea DAILY PRN MISC Per rx protocol 07/09/17 08:45 08/08/17 08:44 Vancomycin HCl/ Dextrose 250 ml @ 166.667 mls/hr Q24H IVPB 07/10/17 11:00 07/15/17 10:59 Dong Ambriz MD Jul 09, 2017 14:10
--- NOTE | 2017-07-09 16:06 | History & Physical ---
History and Physical History & Physicial Dictated for Int Med-Dr Blancas no. [id number]. KELLE WEINSTEIN Jul 09, 2017 16:06
--- NOTE | 2017-07-09 16:10 | Internal Med Progress Note ---
Subjective Date of Service: Jul 10, 2017 Physician Name Jony Weinstein Attending Physician Cirilo Blancas MD Current Medications Medications (Trade) Dose Ordered Sig/Alfonso Route PRN Reason Start Time Stop Time Status Last Admin Dose Admin Acetaminophen (Tylenol) 650 mg Q4H PRN ORAL Mild Pain/Temp > 100.5 07/09/17 08:45 08/08/17 08:44 Acetaminophen/ Hydrocodone Bitart ([place] 5/325) 1 tab Q6H PRN ORAL PAIN 4-10 07/09/17 08:45 07/16/17 08:44 Carvedilol (Coreg) 3.125 mg EVERY 12 HOURS ORAL 07/09/17 09:00 08/08/17 08:59 07/09/17 09:52 Ceftriaxone Sodium 1 gm/ Dextrose 110 ml @ 220 mls/hr Q24H IVPB 07/09/17 23:00 07/16/17 22:59 Clonidine HCl (Catapres Tab) 0.1 mg EVERY 6 HOURS PRN ORAL SBP > 160mmHg 07/09/17 08:45 08/08/17 08:44 Dextrose (Dextrose 50%) 25 ml STAT PRN IV Hypoglycemia 07/09/17 08:45 08/08/17 08:44 Dextrose (Dextrose 50%) 50 ml STAT PRN IV Hypoglycemia 07/09/17 08:45 08/08/17 08:44 Glipizide (Glucotrol) 10 mg BIAC ORAL 07/09/17 16:30 08/08/17 16:29 Heparin Sodium (Porcine) (Heparin 5000 units/ml) 5,000 units EVERY 8 HOURS SUBQ 07/09/17 14:00 08/08/17 13:59 07/09/17 13:58 Hydrochlorothiazide (Hydrodiuril) 12.5 mg DAILY ORAL 07/09/17 09:15 08/08/17 09:14 07/09/17 09:52 Insulin Aspart (NovoLOG) BEFORE MEALS AND HS SUBQ 07/09/17 11:30 08/08/17 11:29 07/09/17 11:32 Lisinopril (Zestril) 10 mg DAILY ORAL 07/09/17 09:15 08/08/17 09:14 07/09/17 09:52 Ondansetron HCl (Zofran) 4 mg Q4H PRN IVP Nausea & Vomiting 07/09/17 08:45 08/08/17 08:44 Vancomycin HCl (Vanco rx to dose) 1 ea DAILY PRN MISC Per rx protocol 07/09/17 08:45 08/08/17 08:44 Vancomycin HCl/ Dextrose 250 ml @ 166.667 mls/hr Q24H IVPB 07/10/17 11:00 07/15/17 10:59 Allergies: Coded Allergies: No Known Allergies (Unverified , 01/12/13) ROS Limited/Unobtainable: No Constitutional: Reports: no symptoms HEENT: Reports: no symptoms Cardiovascular: Reports: no symptoms Respiratory: Reports: cough Gastrointestinal/Abdominal: Reports: no symptoms Genitourinary: Reports: no symptoms 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: Reports: no symptoms Subjective 89 YO F admitted with cough and UTI. Cover for Int Med-Dr Blancas. Objective Last Vital Signs Date Time Temp Pulse Resp B/P (MAP) Pulse Ox O2 Delivery O2 Flow Rate FiO2 07/09/17 12:00 97.9 87 18 151/63 96 Room Air 97.9 General Appearance: WD/WN, no apparent distress, alert EENT: PERRL/EOMI, normal ENT inspection, TMs normal Neck: non-tender, normal alignment, supple Cardiovascular: normal peripheral pulses, normal rate, regular rhythm, no gallop/murmur, no JVD Respiratory/Chest: chest wall non-tender, lungs clear, normal breath sounds, no respiratory distress, no accessory muscle use Abdomen: normal bowel sounds, non tender, soft, no organomegaly, no mass Extremities: normal range of motion, non-tender Neurologic: manager mission 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 normal, no motor/sensory deficits Skin: warm/dry, other - erythema left leg Laboratory Tests Test 07/08/17 23:00 07/08/17 23:15 07/09/17 09:50 Urine Color Pale yellow Urine Appearance Slightly cloudy Urine pH 5 (4.5-8.0) Urine Specific [place] 1.015 (1.005-1.035) Urine Protein 4+ (NEGATIVE) H Urine Glucose (UA) 4+ (NEGATIVE) H Urine Ketones Negative (NEGATIVE) Urine Occult Blood 1+ (NEGATIVE) H Urine Nitrite Negative (NEGATIVE) Urine Bilirubin Negative (NEGATIVE) Urine Urobilinogen Normal MG/DL (0.0-1.0) Urine Leukocyte Esterase 1+ (NEGATIVE) H Urine RBC 0-2 /HPF (0 - 2) Urine WBC 2-4 /HPF (0 - 2) Urine Squamous Epithelial Cells Few /LPF (NONE/OCC) Urine Amorphous Sediment Few /LPF (NONE) H Urine Bacteria Few /HPF (NONE) White Blood Count 15.4 K/UL (4.8-10.8) H Red Blood Count 4.84 M/UL (4.20-5.40) Hemoglobin 11.5 G/DL (12.0-16.0) L Hematocrit 36.6 % (37.0-47.0) L Mean Corpuscular Volume 76 FL (80-99) L Mean Corpuscular Hemoglobin 23.8 PG (27.0-31.0) L Mean Corpuscular Hemoglobin Concent 31.5 G/DL (32.0-36.0) L Red Cell Distribution Width 13.7 % (11.6-14.8) Platelet Count 231 K/UL (150-450) Mean Platelet Volume 9.5 FL (6.5-10.1) Neutrophils (%) (Auto) 79.1 % (45.0-75.0) H Lymphocytes (%) (Auto) 13.2 % (20.0-45.0) L Monocytes (%) (Auto) 6.3 % (1.0-10.0) Eosinophils (%) (Auto) 0.6 % (0.0-3.0) Basophils (%) (Auto) 0.8 % (0.0-2.0) Prothrombin Time 10.0 SEC (9.30-11.50) Prothromb Time International Ratio 1.0 (0.9-1.1) Activated Partial Thromboplast Time 30 SEC (23-33) Sodium Level 135 MMOL/L (136-145) L Potassium Level 5.4 MMOL/L (3.5-5.1) H Chloride Level 99 MMOL/L (98-107) Carbon Dioxide Level 29 MMOL/L (21-32) Anion Gap 7 mmol/L (5-15) Blood Urea Nitrogen 29 mg/dL (7-18) H Creatinine 1.4 MG/DL (0.55-1.30) H Estimat Glomerular Filtration Rate 45.1 mL/min (>60) Glucose Level 393 MG/DL (74-106) H Lactic Acid Level 1.50 mmol/L (0.66-2.22) Calcium Level 8.8 MG/DL (8.5-10.1) Total Bilirubin 0.6 MG/DL (0.2-1.0) Aspartate Amino Transf (AST/SGOT) 25 U/L (15-37) Alanine Aminotransferase (ALT/SGPT) 17 U/L (12-78) Alkaline Phosphatase 123 U/L (46-116) H Pro-B-Type Natriuretic Peptide 721 pg/mL (0-125) H Total Protein 7.5 G/DL (6.4-8.2) Albumin 2.8 G/DL (3.4-5.0) L Globulin 4.7 g/dL Albumin/Globulin Ratio 0.6 (1.0-2.7) L Hemoglobin A1c 10.3 % (4.3-6.0) H Intake and Output 07/08/17 07/09/17 19:00 07:00 Intake Total 165 ml Balance 165 ml Intake IV Total 165 ml # Voids 1 # Bowel Movements 1 Assessment/Plan Problem List: (1) Cellulitis of leg, left Assessment & Plan: Continue ceftriaxone and vanco (2) Altered mental status (3) Diabetes mellitus, type II Assessment & Plan: Continue novolog and glipizide (4) HTN (hypertension) Assessment & Plan: Continue coreg and lisinopril Status: not improved JONY WEINSTEIN Jul 09, 2017 16:10
[2017-07-09] MEDS: GlipiZIDE 10mg tab ORAL SCH (17:03)
--- NOTE | 2017-07-09 21:00 | History and Physical Report ---
DATE OF ADMISSION: 07/08/2017 CHIEF COMPLAINT: The patient is a 71-year-old female who presents with chief complaint of pain and swelling of the left leg. HISTORY OF PRESENT ILLNESS: It began 3 or 4 months ago. The patient had cellulitis of the left leg. The patient had home health at that time. The patient was treated with oral antibiotics. The patient states her left leg began to swell about 2 weeks ago. She has redness with swelling over the left calf. The patient went to her primary care physician on , 07/06/2017. The patient was given oral Keflex. The patient took Keflex on Monday and Monday, 07/07/2017 and 07/08/2017. The patient states that the medication caused her to be nauseated. The patient's son came home last evening and found his mother to be confused. The patient was transported to [facility]. The patient was found to have erythema over the lateral left calf. The patient was admitted for cellulitis of the left leg. The patient was also admitted for altered mental status. REVIEW OF SYSTEMS: CONSTITUTIONAL: The patient denies weight loss or weight gain. The patient denies fevers or chills. HEENT: The patient denies ear or throat pain. The patient denies headache. CARDIOVASCULAR: The patient denies palpitations or chest pain. CHEST: The patient denies wheeze or shortness of breath. ABDOMINAL: The patient denies nausea, vomiting, diarrhea, or constipation. GENITOURINARY: The patient denies dysuria or increased frequency of urination. NEUROMUSCULAR: The patient complains of left leg pain and swelling as above. The patient denies seizures or generalized weakness. PAST MEDICAL HISTORY: Significant for: 1. Type 2 diabetes. 2. Hypertension. PAST SURGICAL HISTORY: Significant for: 1. Left toe diabetic ulcer in 2013. 2. Left foot toe ulcer. CURRENT MEDICATIONS: 1. Glipizide 5 mg two tablets p.o. twice daily. 2. Lisinopril/hydrochlorothiazide 10/12.5 one tablet p.o. daily. 3. Keflex 500 mg p.o. four times daily for the last two days. ALLERGIES: No known drug allergies. SOCIAL HISTORY: The patient is single and lives with her adult son. The patient denies tobacco or alcohol use. PHYSICAL EXAMINATION: VITAL SIGNS: Temperature 98.4, respirations 16, pulse 81, blood pressure 156/73. GENERAL: The patient is a well-developed, well-nourished female, in no apparent distress. HEENT: Eyes, pupils equal and responsive to light and accommodation. Extraocular movements are intact. NECK: Supple without lymphadenopathy. CHEST: Lungs are clear to auscultation bilaterally without wheezes or rales. CARDIOVASCULAR: Regular rate. S1, S2 normal without murmurs, rubs, or gallops. ABDOMEN: Soft, nontender, and nondistended with positive bowel sounds. No evidence of hepatosplenomegaly. Currently, no rebound or guarding noted. EXTREMITIES: There is erythema of the left lateral calf from the ankle to the knee. There is erythema and vesicular-type lesions on the lateral left leg. NEUROLOGIC: Cranial nerves II through XII are grossly intact without focal deficits. Motor strength is 5/5 bilaterally intact. Deep tendon reflexes are 2+, plantar. LABORATORY STUDIES: WBC 15.4, hemoglobin 11.5, hematocrit 36.6, platelets 231,000. Sodium 135, potassium 5.4, chloride 99, CO2 29, BUN 29, creatinine 1.4, glucose 393. ASSESSMENT: This is a 71-year-old female with: 1. Altered mental status. 2. Cellulitis of the left lower extremity. 3. Diabetes type 2. 4. Hypertension. TREATMENT: 1. Altered mental status. This may be secondary to cellulitis. The patient may be septic. Blood cultures are pending. The patient has been started empirically on antibiotics. The patient's mental status appears to be clearing at this point. 2. Cellulitis of left lower extremity. The patient has been started empirically on ceftriaxone and vancomycin. Blood cultures are pending. 3. Diabetes type 2. NovoLog sliding scale has been instituted. The patient's blood sugar on admission was elevated at 393. 4. Hypertension. Continue lisinopril/hydrochlorothiazide as above. Jony Cardona M.D. DR: Nallely JOB#: [id number] CC:
[2017-07-09] MEDS: cefTRIAXone 1 GM in D5W 110 ML IVPB SCH (22:33)
[2017-07-10] VITALS (7 sets, daily range): BP systolic 130–168; BP diastolic 60–90
[2017-07-10] MEDS: GlipiZIDE 10mg tab ORAL SCH ×2 (06:01→16:37)
[2017-07-10] MEDS: Heparin 5000 units/ml inj SUBQ SCH ×3 (06:02→21:22)
[2017-07-10] MEDS: NovoLOG Insulin Flexpen SUBQ SCH ×4 (06:03→20:52)
[2017-07-10 06:34] LABS: BASOPHILS % (AUTO) 0.7 % (0.0-2.0); EOSINOPHILS % (AUTO) 3.1 % (0.0-3.0); HEMATOCRIT 27.8 % (37.0-47.0); LYMPHOCYTES % (AUTO) 25.3 % (20.0-45.0); MEAN CORPUSCULAR VOLUME 75 FL (80-99); MONOCYTES % (AUTO) 13.4 % (1.0-10.0); NEUTROPHILS % (AUTO) 57.5 % (45.0-75.0); PLATELET COUNT 175 K/UL (150-450); RED CELL DISTRIBUTION WIDTH 13.3 % (11.6-14.8)
[2017-07-10 06:46] LABS: ALANINE AMINOTRANSFERASE 14 U/L (12-78); ALBUMIN 2.2 G/DL (3.4-5.0); ALBUMIN/GLOBULIN RATIO 0.5 (1.0-2.7); ALKALINE PHOSPHATASE 92 U/L (46-116); ANION GAP 4 mmol/L (5-15); ASPARTATE AMINO TRANSFERASE 15 U/L (15-37); BILIRUBIN,TOTAL 0.3 MG/DL (0.2-1.0); BLOOD UREA NITROGEN 38 mg/dL (7-18); CALCIUM 8.2 MG/DL (8.5-10.1); CARBON DIOXIDE 31 MMOL/L (21-32); CHLORIDE 104 MMOL/L (98-107); CREATININE 1.8 MG/DL (0.55-1.30); PHOSPHORUS 4.5 MG/DL (2.5-4.9); POTASSIUM 4.1 MMOL/L (3.5-5.1); SODIUM 139 MMOL/L (136-145)
[2017-07-10] MEDS: hydroCHLOROthiazide 12.5mg TAB ORAL SCH (08:49)
[2017-07-10] MEDS: Lisinopril 10mg tab ORAL SCH (08:49)
[2017-07-10] MEDS ORDERED: Tubing IV Secondary IV ONE (10:31)
[2017-07-10] MEDS ORDERED: NS 275ml ONE (10:31)
[2017-07-10] MEDS ORDERED: Vancomycin 1250mg/D5W 250ml IVPB SCH (11:00)
--- NOTE | 2017-07-10 11:26 | Internal Med Progress Note ---
Subjective Date of Service: Jul 10, 2017 Physician Name Jony Weinstein Attending Physician Cirilo Blancas MD Current Medications Medications (Trade) Dose Ordered Sig/Alfonso Route PRN Reason Start Time Stop Time Status Last Admin Dose Admin Acetaminophen (Tylenol) 650 mg Q4H PRN ORAL Mild Pain/Temp > 100.5 07/09/17 08:45 08/08/17 08:44 Acetaminophen/ Hydrocodone Bitart ([place] 5/325) 1 tab Q6H PRN ORAL PAIN 4-10 07/09/17 08:45 07/16/17 08:44 Carvedilol (Coreg) 3.125 mg EVERY 12 HOURS ORAL 07/09/17 09:00 08/08/17 08:59 07/10/17 08:49 Ceftriaxone Sodium 1 gm/ Dextrose 110 ml @ 220 mls/hr Q24H IVPB 07/09/17 23:00 07/16/17 22:59 07/09/17 22:33 Clonidine HCl (Catapres Tab) 0.1 mg EVERY 6 HOURS PRN ORAL SBP > 160mmHg 07/09/17 08:45 08/08/17 08:44 Dextrose (Dextrose 50%) 25 ml STAT PRN IV Hypoglycemia 07/09/17 08:45 08/08/17 08:44 Dextrose (Dextrose 50%) 50 ml STAT PRN IV Hypoglycemia 07/09/17 08:45 08/08/17 08:44 Glipizide (Glucotrol) 10 mg BIAC ORAL 07/09/17 16:30 08/08/17 16:29 07/10/17 06:01 Heparin Sodium (Porcine) (Heparin 5000 units/ml) 5,000 units EVERY 8 HOURS SUBQ 07/09/17 14:00 08/08/17 13:59 07/10/17 06:02 Hydrochlorothiazide (Hydrodiuril) 12.5 mg DAILY ORAL 07/09/17 09:15 08/08/17 09:14 07/10/17 08:49 Insulin Aspart (NovoLOG) BEFORE MEALS AND HS SUBQ 07/09/17 11:30 08/08/17 11:29 07/09/17 11:32 Lisinopril (Zestril) 10 mg DAILY ORAL 07/09/17 09:15 08/08/17 09:14 07/10/17 08:49 Ondansetron HCl (Zofran) 4 mg Q4H PRN IVP Nausea & Vomiting 07/09/17 08:45 08/08/17 08:44 Vancomycin HCl (Vanco rx to dose) 1 ea DAILY PRN MISC Per rx protocol 07/09/17 08:45 08/08/17 08:44 Vancomycin HCl/ Dextrose 250 ml @ 166.667 mls/hr Q24H IVPB 07/10/17 11:00 07/15/17 10:59 Allergies: Coded Allergies: No Known Allergies (Unverified , 01/12/13) ROS Limited/Unobtainable: No Constitutional: Reports: no symptoms HEENT: Reports: no symptoms Cardiovascular: Reports: no symptoms Respiratory: Reports: no symptoms Gastrointestinal/Abdominal: Reports: no symptoms Genitourinary: Reports: no symptoms 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: Reports: no symptoms Subjective 89 YO F admitted with cough and UTI. Cover for Int Med-Dr Blancas. Objective Last Vital Signs Date Time Temp Pulse Resp B/P (MAP) Pulse Ox O2 Delivery O2 Flow Rate FiO2 07/10/17 08:49 136/66 07/10/17 08:49 74 07/10/17 04:00 97.9 18 96 Room Air 97.9 Laboratory Tests Test 07/10/17 03:25 White Blood Count 9.0 K/UL (4.8-10.8) Red Blood Count 3.70 M/UL (4.20-5.40) L Hemoglobin 9.0 G/DL (12.0-16.0) L Hematocrit 27.8 % (37.0-47.0) L Mean Corpuscular Volume 75 FL (80-99) L Mean Corpuscular Hemoglobin 24.3 PG (27.0-31.0) L Mean Corpuscular Hemoglobin Concent 32.4 G/DL (32.0-36.0) Red Cell Distribution Width 13.3 % (11.6-14.8) Platelet Count 175 K/UL (150-450) Mean Platelet Volume 10.6 FL (6.5-10.1) H Neutrophils (%) (Auto) 57.5 % (45.0-75.0) Lymphocytes (%) (Auto) 25.3 % (20.0-45.0) Monocytes (%) (Auto) 13.4 % (1.0-10.0) H Eosinophils (%) (Auto) 3.1 % (0.0-3.0) H Basophils (%) (Auto) 0.7 % (0.0-2.0) Erythrocyte Sedimentation Rate Pending Sodium Level 139 MMOL/L (136-145) Potassium Level 4.1 MMOL/L (3.5-5.1) Chloride Level 104 MMOL/L (98-107) Carbon Dioxide Level 31 MMOL/L (21-32) Anion Gap 4 mmol/L (5-15) L Blood Urea Nitrogen 38 mg/dL (7-18) H Creatinine 1.8 MG/DL (0.55-1.30) H Estimat Glomerular Filtration Rate 33.8 mL/min (>60) Glucose Level 111 MG/DL (74-106) #H Calcium Level 8.2 MG/DL (8.5-10.1) L Phosphorus Level 4.5 MG/DL (2.5-4.9) Magnesium Level 1.8 MG/DL (1.8-2.4) Total Bilirubin 0.3 MG/DL (0.2-1.0) Aspartate Amino Transf (AST/SGOT) 15 U/L (15-37) Alanine Aminotransferase (ALT/SGPT) 14 U/L (12-78) Alkaline Phosphatase 92 U/L (46-116) C-Reactive Protein, Quantitative 15.0 mg/dL (0.00-0.90) H Total Protein 6.3 G/DL (6.4-8.2) L Albumin 2.2 G/DL (3.4-5.0) L Globulin 4.1 g/dL Albumin/Globulin Ratio 0.5 (1.0-2.7) L Microbiology Date/Time Source Procedure Growth Status 07/08/17 23:30 Blood Blood Culture - Preliminary NO GROWTH AFTER 24 HOURS Resulted 07/08/17 23:15 Blood Blood Culture - Preliminary NO GROWTH AFTER 24 HOURS Resulted Intake and Output 07/09/17 07/10/17 19:00 07:00 Intake Total 480 ml 320 ml Balance 480 ml 320 ml Intake Oral 480 ml 320 ml # Voids 1 3 Objective General Appearance: WD/WN, no apparent distress, alert EENT: PERRL/EOMI, normal ENT inspection, TMs normal Neck: non-tender, normal alignment, supple Cardiovascular: normal peripheral pulses, normal rate, regular rhythm, no gallop/murmur, no JVD Respiratory/Chest: chest wall non-tender, lungs clear, normal breath sounds, no respiratory distress, no accessory muscle use Abdomen: normal bowel sounds, non tender, soft, no organomegaly, no mass Extremities: normal range of motion, non-tender 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
--- NOTE | 2017-07-10 12:33 | Physician Query ---
--------- THIS DOCUMENT IS A PERMANENT PART OF THE MEDICAL RECORD --------- PLEASE COMPLETE DOCUMENT BEFORE SIGNING Dear JONY Hutchins Date: 07/10/17 Residential Framing Carpenter/CDS Name: Dima Lynne Residential Framing Carpenter / CDS Phone #[phone] Exercise your independent professional judgment when responding to query. Question asked do not imply a particular answer is desired/expected. Clinical Documentation States: "Altered Mental Status / Confusion / ALOC" documented in : Progress Note (07/09/17) "Altered mental status. This may be secondary to cellulitis." Please indicate the nature and chronicity of the condition below: [X] Metabolic Encephalopathy [X] Toxic Encephalopathy [] Toxic - Metabolic Encephalopathy [] Progressive Encephalopathy [] Encephalopathy, Other [] Other: [] Not Applicable Severity [X] Acute [] Chronic [] Acute on Chronic [] Unable to determine Condition Present on Admission: [X] Yes [] No []Clinically Undeterminable Please also document in your Progress Notes and/or Discharge Summary and indicate if the condition was present on admission. Dr. Jony Cardona Date/Time MTDD
--- NOTE | 2017-07-10 15:00 | Pulmonology Progress Note ---
Assessment/Plan Problems: (1) Cellulitis of leg, left (2) HTN (hypertension) (3) Hyperkalemia (4) Diabetes mellitus, type II Assessment/Plan improving continue abx wound care check cultures check electroltyes symptoamtic treatment Subjective ROS Limited/Unobtainable: No Constitutional: Reports: no symptoms HEENT: Repors: no symptoms Respiratory: Reports: no symptoms Allergies: Coded Allergies: No Known Allergies (Unverified , 01/12/13) Objective Last 24 Hour Vital Signs Date Time Temp Pulse Resp B/P (MAP) Pulse Ox O2 Delivery O2 Flow Rate FiO2 07/10/17 13:55 74 134/70 07/10/17 12:00 98.3 81 18 168/68 100 Room Air 98.3 07/10/17 08:49 136/66 07/10/17 08:49 74 136/66 07/10/17 08:00 98.4 86 22 139/90 98 Room Air 98.4 07/10/17 04:00 97.9 74 18 136/66 96 Room Air 97.9 07/10/17 00:00 97.7 71 18 130/60 98 Room Air 97.7 07/09/17 20:53 78 146/71 07/09/17 20:00 98.8 78 18 146/71 96 98.8 07/09/17 18:30 98.4 79 20 133/61 96 Room Air 98.4 07/09/17 16:00 100.2 78 20 133/54 96 Room Air 100.2 Intake and Output 07/09/17 07/10/17 19:00 07:00 Intake Total 480 ml 320 ml Balance 480 ml 320 ml Intake Oral 480 ml 320 ml # Voids 1 3 Objective General Appearance: cachetic HEENT: normocephalic, atraumatic Respiratory/Chest: chest wall non-tender, lungs clear Cardiovascular: normal rate, regular rhythm Abdomen: normal bowel sounds, soft, non tender, non distended Genitourinary: normal external genitalia Extremities: + rash Microbiology Date/Time Source Procedure Growth Status 07/08/17 23:30 Blood Blood Culture - Preliminary NO GROWTH AFTER 24 HOURS Resulted 07/08/17 23:15 Blood Blood Culture - Preliminary NO GROWTH AFTER 24 HOURS Resulted Laboratory Tests 07/10/17 03:25: White Blood Count 9.0, Red Blood Count 3.70L, Hemoglobin 9.0L, Hematocrit 27.8L , Mean Corpuscular Volume 75L, Mean Corpuscular Hemoglobin 24.3L, Mean Corpuscular Hemoglobin Concent 32.4, Red Cell Distribution Width 13.3, Platelet Count 175, Mean Platelet Volume 10.6H, Neutrophils (%) (Auto) 57.5, Lymphocytes (%) (Auto) 25.3, Monocytes (%) (Auto) 13.4H, Eosinophils (%) (Auto) 3.1H, Basophils (%) (Auto) 0.7, Erythrocyte Sedimentation Rate 97H, Sodium Level 139, Potassium Level 4.1, Chloride Level 104, Carbon Dioxide Level 31, Anion Gap 4L, Blood Urea Nitrogen 38H, Creatinine 1.8H, Estimat Glomerular Filtration Rate 33.8, Glucose Level 111#H, Calcium Level 8.2L, Phosphorus Level 4.5, Magnesium Level 1.8, Total Bilirubin 0.3, Aspartate Amino Transf (AST/SGOT) 15, Alanine Aminotransferase (ALT/SGPT) 14, Alkaline Phosphatase 92, C-Reactive Protein, Quantitative 15.0H, Total Protein 6.3L, Albumin 2.2L, Globulin 4.1, Albumin/ Globulin Ratio 0.5L Current Medications Medications (Trade) Dose Ordered Sig/Alfonso Route PRN Reason Start Time Stop Time Status Last Admin Dose Admin Acetaminophen (Tylenol) 650 mg Q4H PRN ORAL Mild Pain/Temp > 100.5 07/09/17 08:45 08/08/17 08:44 Acetaminophen/ Hydrocodone Bitart ([place] 5/325) 1 tab Q6H PRN ORAL PAIN 4-10 07/09/17 08:45 07/16/17 08:44 Carvedilol (Coreg) 3.125 mg EVERY 12 HOURS ORAL 07/09/17 09:00 08/08/17 08:59 07/10/17 08:49 Ceftriaxone Sodium 1 gm/ Dextrose 110 ml @ 220 mls/hr Q24H IVPB 07/09/17 23:00 07/16/17 22:59 07/09/17 22:33 Clonidine HCl (Catapres Tab) 0.1 mg EVERY 6 HOURS PRN ORAL SBP > 160mmHg 07/09/17 08:45 08/08/17 08:44 Dextrose (Dextrose 50%) 25 ml STAT PRN IV Hypoglycemia 07/09/17 08:45 08/08/17 08:44 Dextrose (Dextrose 50%) 50 ml STAT PRN IV Hypoglycemia 07/09/17 08:45 08/08/17 08:44 Glipizide (Glucotrol) 10 mg BIAC ORAL 07/09/17 16:30 08/08/17 16:29 07/10/17 06:01 Heparin Sodium (Porcine) (Heparin 5000 units/ml) 5,000 units EVERY 8 HOURS SUBQ 07/09/17 14:00 08/08/17 13:59 07/10/17 06:02 Hydrochlorothiazide (Hydrodiuril) 12.5 mg DAILY ORAL 07/09/17 09:15 08/08/17 09:14 07/10/17 08:49 Insulin Aspart (NovoLOG) BEFORE MEALS AND HS SUBQ 07/09/17 11:30 08/08/17 11:29 07/10/17 11:40 Lisinopril (Zestril) 10 mg DAILY ORAL 07/09/17 09:15 08/08/17 09:14 07/10/17 08:49 Ondansetron HCl (Zofran) 4 mg Q4H PRN IVP Nausea & Vomiting 07/09/17 08:45 08/08/17 08:44 Vancomycin HCl (Vanco rx to dose) 1 ea DAILY PRN MISC Per rx protocol 07/09/17 08:45 08/08/17 08:44 Vancomycin HCl/ Dextrose 250 ml @ 166.667 mls/hr Q24H IVPB 07/10/17 11:00 07/15/17 10:59 07/10/17 11:39 Dong Ambriz MD Jul 10, 2017 15:00
--- NOTE | 2017-07-10 21:24 | Cardiology Report ---
APPROVED REPORT EKG Measurement Heart [id number] MD [id number] Normal sinus rhythm Septal infarct, age undetermined Abnormal ECG
[2017-07-10] MEDS: cefTRIAXone 1 GM in D5W 110 ML IVPB SCH (23:24)
--- NOTE | 2017-07-10 23:43 | Consultation ---
History of Present Illness General Date patient seen: Jul 09, 2017 Chief Complaint: Skin Rash/Abscess/AMS Present Illness HPI 71-year-old female with hx of mmp, cognitive impairment who presents with chief complaint of pain and swelling of the left leg. The pt was found to be confused waxing and waning of consciousness. The pt has no agitation. the pt was a poor historian. Allergies: Coded Allergies: No Known Allergies (Unverified , 01/12/13) Medication History Scheduled Cephalexin* (Keflex*), 500 MG ORAL EVERY 6 HOURS, (Reported) Glipizide* (Glipizide*), 10 MG ORAL BIDAC, (Reported) Lisinopril/Hydrochlorothiazide 10-12.5 Mg Tab (Lisinopril-Hctz 10-12.5 Mg Tab), 1 TAB ORAL DAILY, (Reported) Discontinued Medications Glipizide (Glipizide Er), 10 MG PO BIDAC, (Reported) Discontinued Reason: Medication dose changed Insulin Aspart* (Novolog*), 0 SUBQ AC+HS, (Reported) Discontinued Reason: Pt stopped taking med Metoprolol Succinate* (Metoprolol Succinate*), 25 MG ORAL DAILY, (Reported) Discontinued Reason: Therapy completed Patient History Limited by: medical condition History Provided By: Patient, Medical Record, PMD Healthcare decision maker Resuscitation status Advanced Directive on File Past Medical/Surgical History Past Medical/Surgical History: (1) Anemia (2) Peripheral neuropathy (3) Diabetic foot ulcer (4) Diabetic foot ulcer with osteomyelitis (5) Diabetic foot ulcer with osteomyelitis (6) Pain in right foot (7) DM (8) chronic osteomyelitis (9) Renal failure (10) Left leg cellulitis (11) Cellulitis (12) Diabetes mellitus, type II (13) Renal insufficiency (14) Hyperkalemia (15) Altered mental status (16) HTN (hypertension) (17) Cellulitis of leg, left Review of Systems Psychiatric: Reports: prior hx, anxiety, depressed feelings, emotional problems Physical Exam General Appearance: no apparent distress, confused Last 24 Hour Vital Signs Date Time Temp Pulse Resp B/P (MAP) Pulse Ox O2 Delivery O2 Flow Rate FiO2 07/10/17 20:00 98.2 71 18 154/62 98 Room Air 98.2 07/10/17 16:00 98.0 71 18 144/75 100 Room Air 98.0 07/10/17 13:55 74 134/70 07/10/17 12:00 98.3 81 18 168/68 100 Room Air 98.3 07/10/17 08:49 136/66 07/10/17 08:49 74 136/66 07/10/17 08:00 98.4 86 22 139/90 98 Room Air 98.4 07/10/17 04:00 97.9 74 18 136/66 96 Room Air 97.9 07/10/17 00:00 97.7 71 18 130/60 98 Room Air 97.7 Intake and Output 07/09/17 07/10/17 19:00 07:00 Intake Total 480 ml 320 ml Balance 480 ml 320 ml Intake Oral 480 ml 320 ml # Voids 1 3 Laboratory Tests Test 07/10/17 03:25 White Blood Count 9.0 K/UL (4.8-10.8) Red Blood Count 3.70 M/UL (4.20-5.40) L Hemoglobin 9.0 G/DL (12.0-16.0) L Hematocrit 27.8 % (37.0-47.0) L Mean Corpuscular Volume 75 FL (80-99) L Mean Corpuscular Hemoglobin 24.3 PG (27.0-31.0) L Mean Corpuscular Hemoglobin Concent 32.4 G/DL (32.0-36.0) Red Cell Distribution Width 13.3 % (11.6-14.8) Platelet Count 175 K/UL (150-450) Mean Platelet Volume 10.6 FL (6.5-10.1) H Neutrophils (%) (Auto) 57.5 % (45.0-75.0) Lymphocytes (%) (Auto) 25.3 % (20.0-45.0) Monocytes (%) (Auto) 13.4 % (1.0-10.0) H Eosinophils (%) (Auto) 3.1 % (0.0-3.0) H Basophils (%) (Auto) 0.7 % (0.0-2.0) Erythrocyte Sedimentation Rate 97 MM/HR (0-30) H Sodium Level 139 MMOL/L (136-145) Potassium Level 4.1 MMOL/L (3.5-5.1) Chloride Level 104 MMOL/L (98-107) Carbon Dioxide Level 31 MMOL/L (21-32) Anion Gap 4 mmol/L (5-15) L Blood Urea Nitrogen 38 mg/dL (7-18) H Creatinine 1.8 MG/DL (0.55-1.30) H Estimat Glomerular Filtration Rate 33.8 mL/min (>60) Glucose Level 111 MG/DL (74-106) #H Calcium Level 8.2 MG/DL (8.5-10.1) L Phosphorus Level 4.5 MG/DL (2.5-4.9) Magnesium Level 1.8 MG/DL (1.8-2.4) Total Bilirubin 0.3 MG/DL (0.2-1.0) Aspartate Amino Transf (AST/SGOT) 15 U/L (15-37) Alanine Aminotransferase (ALT/SGPT) 14 U/L (12-78) Alkaline Phosphatase 92 U/L (46-116) C-Reactive Protein, Quantitative 15.0 mg/dL (0.00-0.90) H Total Protein 6.3 G/DL (6.4-8.2) L Albumin 2.2 G/DL (3.4-5.0) L Globulin 4.1 g/dL Albumin/Globulin Ratio 0.5 (1.0-2.7) L Height (Feet): 5 Height (Inches): 4.00 Weight (Pounds): 204 Medications Current Medications Medications (Trade) Dose Ordered Sig/Alfonso Route PRN Reason Start Time Stop Time Status Last Admin Dose Admin Acetaminophen (Tylenol) 650 mg Q4H PRN ORAL Mild Pain/Temp > 100.5 07/09/17 08:45 08/08/17 08:44 Acetaminophen/ Hydrocodone Bitart ([place] 5/325) 1 tab Q6H PRN ORAL PAIN 4-10 07/09/17 08:45 07/16/17 08:44 Carvedilol (Coreg) 3.125 mg EVERY 12 HOURS ORAL 07/09/17 09:00 08/08/17 08:59 07/10/17 08:49 Ceftriaxone Sodium 1 gm/ Dextrose 110 ml @ 220 mls/hr Q24H IVPB 07/09/17 23:00 07/16/17 22:59 07/10/17 23:24 Clonidine HCl (Catapres Tab) 0.1 mg EVERY 6 HOURS PRN ORAL SBP > 160mmHg 07/09/17 08:45 08/08/17 08:44 Dextrose (Dextrose 50%) 25 ml STAT PRN IV Hypoglycemia 07/09/17 08:45 08/08/17 08:44 Dextrose (Dextrose 50%) 50 ml STAT PRN IV Hypoglycemia 07/09/17 08:45 08/08/17 08:44 Glipizide (Glucotrol) 10 mg BIAC ORAL 07/09/17 16:30 08/08/17 16:29 07/10/17 16:37 Heparin Sodium (Porcine) (Heparin 5000 units/ml) 5,000 units EVERY 8 HOURS SUBQ 07/09/17 14:00 08/08/17 13:59 07/10/17 06:02 Hydrochlorothiazide (Hydrodiuril) 12.5 mg DAILY ORAL 07/09/17 09:15 08/08/17 09:14 07/10/17 08:49 Insulin Aspart (NovoLOG) BEFORE MEALS AND HS SUBQ 07/09/17 11:30 08/08/17 11:29 07/10/17 20:52 Lisinopril (Zestril) 10 mg DAILY ORAL 07/09/17 09:15 08/08/17 09:14 07/10/17 08:49 Ondansetron HCl (Zofran) 4 mg Q4H PRN IVP Nausea & Vomiting 07/09/17 08:45 08/08/17 08:44 Vancomycin HCl (Vanco rx to dose) 1 ea DAILY PRN MISC Per rx protocol 07/09/17 08:45 08/08/17 08:44 Vancomycin HCl/ Dextrose 250 ml @ 166.667 mls/hr Q24H IVPB 07/10/17 11:00 07/15/17 10:59 07/10/17 11:39 Assessment/Plan Status: stable Assessment/Plan encephalopathy due to [facility] -low dose antipsychotics -provided Shayna Ruelas M.D. Jul 10, 2017 23:43
--- NOTE | 2017-07-10 23:43 | General Progress Note ---
Assessment/Plan Assessment/Plan encephalopathy due to [facility] [place] -low dose antipsychotics -provided ro Subjective Date patient seen: Jul 10, 2017 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: Reports: anxiety, emotional problems Allergies: Coded Allergies: No Known Allergies (Unverified , 01/12/13) Subjective the pt has been paranoid. more alert no agitation Objective Last 24 Hour Vital Signs Date Time Temp Pulse Resp B/P (MAP) Pulse Ox O2 Delivery O2 Flow Rate FiO2 07/10/17 20:00 98.2 71 18 154/62 98 Room Air 98.2 07/10/17 16:00 98.0 71 18 144/75 100 Room Air 98.0 07/10/17 13:55 74 134/70 07/10/17 12:00 98.3 81 18 168/68 100 Room Air 98.3 07/10/17 08:49 136/66 07/10/17 08:49 74 136/66 07/10/17 08:00 98.4 86 22 139/90 98 Room Air 98.4 07/10/17 04:00 97.9 74 18 136/66 96 Room Air 97.9 07/10/17 00:00 97.7 71 18 130/60 98 Room Air 97.7 Intake and Output 07/09/17 07/10/17 19:00 07:00 Intake Total 480 ml 320 ml Balance 480 ml 320 ml Intake Oral 480 ml 320 ml # Voids 1 3 Laboratory Tests 07/10/17 03:25: White Blood Count 9.0, Red Blood Count 3.70L, Hemoglobin 9.0L, Hematocrit 27.8L , Mean Corpuscular Volume 75L, Mean Corpuscular Hemoglobin 24.3L, Mean Corpuscular Hemoglobin Concent 32.4, Red Cell Distribution Width 13.3, Platelet Count 175, Mean Platelet Volume 10.6H, Neutrophils (%) (Auto) 57.5, Lymphocytes (%) (Auto) 25.3, Monocytes (%) (Auto) 13.4H, Eosinophils (%) (Auto) 3.1H, Basophils (%) (Auto) 0.7, Erythrocyte Sedimentation Rate 97H, Sodium Level 139, Potassium Level 4.1, Chloride Level 104, Carbon Dioxide Level 31, Anion Gap 4L, Blood Urea Nitrogen 38H, Creatinine 1.8H, Estimat Glomerular Filtration Rate 33.8, Glucose Level 111#H, Calcium Level 8.2L, Phosphorus Level 4.5, Magnesium Level 1.8, Total Bilirubin 0.3, Aspartate Amino Transf (AST/SGOT) 15, Alanine Aminotransferase (ALT/SGPT) 14, Alkaline Phosphatase 92, C-Reactive Protein, Quantitative 15.0H, Total Protein 6.3L, Albumin 2.2L, Globulin 4.1, Albumin/ Globulin Ratio 0.5L Height (Feet): 5 Height (Inches): 4.00 Weight (Pounds): 204 General Appearance: no apparent distress, alert Neurologic: depressed affect Shayna Thorpe M.D. Jul 10, 2017 23:43
[2017-07-11] VITALS (8 sets, daily range): BP systolic 133–166; BP diastolic 58–79
[2017-07-11] MEDS: NovoLOG Insulin Flexpen SUBQ SCH ×4 (06:30→21:00)
[2017-07-11] MEDS: GlipiZIDE 10mg tab ORAL SCH ×2 (06:34→16:31)
[2017-07-11] MEDS: Heparin 5000 units/ml inj SUBQ SCH ×3 (06:39→21:54)
[2017-07-11 08:11] LABS: BASOPHILS % (AUTO) 1.1 % (0.0-2.0); EOSINOPHILS % (AUTO) 3.2 % (0.0-3.0); HEMATOCRIT 30.8 % (37.0-47.0); HEMOGLOBIN 9.9 G/DL (12.0-16.0); LYMPHOCYTES % (AUTO) 22.6 % (20.0-45.0); MEAN CORPUSCULAR VOLUME 76 FL (80-99); MONOCYTES % (AUTO) 10.3 % (1.0-10.0); NEUTROPHILS % (AUTO) 62.8 % (45.0-75.0); PLATELET COUNT 199 K/UL (150-450); RED BLOOD COUNT 4.07 M/UL (4.20-5.40); RED CELL DISTRIBUTION WIDTH 13.8 % (11.6-14.8); WHITE BLOOD COUNT 9.4 K/UL (4.8-10.8)
[2017-07-11] MEDS: hydroCHLOROthiazide 12.5mg TAB ORAL SCH (08:16)
[2017-07-11] MEDS: Lisinopril 10mg tab ORAL SCH (08:20)
[2017-07-11 08:25] LABS: ANION GAP 4 mmol/L (5-15); BLOOD UREA NITROGEN 43 mg/dL (7-18); CALCIUM 8.7 MG/DL (8.5-10.1); CARBON DIOXIDE 30 MMOL/L (21-32); CHLORIDE 103 MMOL/L (98-107); CREATININE 1.8 MG/DL (0.55-1.30); POTASSIUM 4.4 MMOL/L (3.5-5.1); SODIUM 137 MMOL/L (136-145)
[2017-07-11] MEDS: Vancomycin 750mg/NS 250ml IVPB SCH (14:06)
--- NOTE | 2017-07-11 15:36 | Pulmonology Progress Note ---
Assessment/Plan Problems: (1) Cellulitis of leg, left (2) HTN (hypertension) (3) Hyperkalemia (4) Diabetes mellitus, type II Assessment/Plan improving continue abx wound care, change dressing as protocol check cultures check electrolytes symptoamtic treatment bun/creatinine rising, hold lisinopril and HCTZ for BP use Norvasc and prn clonidine Subjective ROS Limited/Unobtainable: No Constitutional: Reports: no symptoms HEENT: Repors: no symptoms Respiratory: Reports: no symptoms Allergies: Coded Allergies: No Known Allergies (Unverified , 01/12/13) Objective Last 24 Hour Vital Signs Date Time Temp Pulse Resp B/P (MAP) Pulse Ox O2 Delivery O2 Flow Rate FiO2 07/11/17 12:01 98.4 66 20 157/71 98 Room Air 98.4 07/11/17 09:00 97.5 73 20 138/79 98 Room Air 97.5 07/11/17 08:20 139/74 07/11/17 08:20 73 139/79 07/11/17 08:00 98.7 74 20 166/79 93 98.7 07/11/17 04:00 97.7 72 20 164/74 98 Room Air 97.7 07/11/17 00:43 96.8 73 20 156/64 95 Room Air 96.8 07/10/17 20:00 98.2 71 18 154/62 98 Room Air 98.2 07/10/17 16:00 98.0 71 18 144/75 100 Room Air 98.0 Intake and Output 07/10/17 07/11/17 19:00 07:00 Intake Total 110 ml Balance 110 ml IV Total 110 ml # Voids 3 Objective General Appearance: cachetic HEENT: normocephalic, atraumatic Respiratory/Chest: chest wall non-tender, lungs clear Cardiovascular: normal rate, regular rhythm Abdomen: normal bowel sounds, soft, non tender, non distended Genitourinary: normal external genitalia Extremities: + rash Microbiology Date/Time Source Procedure Growth Status 07/08/17 23:30 Blood Blood Culture - Preliminary NO GROWTH AFTER 48 HOURS Resulted 07/08/17 23:15 Blood Blood Culture - Preliminary NO GROWTH AFTER 48 HOURS Resulted Laboratory Tests 07/11/17 07:40: White Blood Count 9.4, Red Blood Count 4.07L, Hemoglobin 9.9L, Hematocrit 30.8L , Mean Corpuscular Volume 76L, Mean Corpuscular Hemoglobin 24.4L, Mean Corpuscular Hemoglobin Concent 32.2, Red Cell Distribution Width 13.8, Platelet Count 199, Mean Platelet Volume 9.9, Neutrophils (%) (Auto) 62.8, Lymphocytes (% ) (Auto) 22.6, Monocytes (%) (Auto) 10.3H, Eosinophils (%) (Auto) 3.2H, Basophils (%) (Auto) 1.1, Sodium Level 137, Potassium Level 4.4, Chloride Level 103, Carbon Dioxide Level 30, Anion Gap 4L, Blood Urea Nitrogen 43H, Creatinine 1.8H, Estimat Glomerular Filtration Rate 33.8, Glucose Level 172H, Calcium Level 8.7 07/11/17 10:15: Vancomycin Level Trough 15.7H Current Medications Medications (Trade) Dose Ordered Sig/Alfonso Route PRN Reason Start Time Stop Time Status Last Admin Dose Admin Acetaminophen (Tylenol) 650 mg Q4H PRN ORAL Mild Pain/Temp > 100.5 07/09/17 08:45 08/08/17 08:44 Acetaminophen/ Hydrocodone Bitart ([place] 5/325) 1 tab Q6H PRN ORAL PAIN 4-10 07/09/17 08:45 07/16/17 08:44 Carvedilol (Coreg) 3.125 mg EVERY 12 HOURS ORAL 07/09/17 09:00 08/08/17 08:59 07/11/17 08:20 Ceftriaxone Sodium 1 gm/ Dextrose 110 ml @ 220 mls/hr Q24H IVPB 07/09/17 23:00 07/16/17 22:59 07/10/17 23:24 Clonidine HCl (Catapres Tab) 0.1 mg EVERY 6 HOURS PRN ORAL SBP > 160mmHg 07/09/17 08:45 08/08/17 08:44 Dextrose (Dextrose 50%) 25 ml STAT PRN IV Hypoglycemia 07/09/17 08:45 08/08/17 08:44 Dextrose (Dextrose 50%) 50 ml STAT PRN IV Hypoglycemia 07/09/17 08:45 08/08/17 08:44 Glipizide (Glucotrol) 10 mg BIAC ORAL 07/09/17 16:30 08/08/17 16:29 07/11/17 06:34 Heparin Sodium (Porcine) (Heparin 5000 units/ml) 5,000 units EVERY 8 HOURS SUBQ 07/09/17 14:00 08/08/17 13:59 07/11/17 06:39 Hydrochlorothiazide (Hydrodiuril) 12.5 mg DAILY ORAL 07/09/17 09:15 08/08/17 09:14 07/11/17 08:16 Insulin Aspart (NovoLOG) BEFORE MEALS AND HS SUBQ 07/09/17 11:30 08/08/17 11:29 07/11/17 11:45 Lisinopril (Zestril) 10 mg DAILY ORAL 07/09/17 09:15 08/08/17 09:14 07/11/17 08:20 Ondansetron HCl (Zofran) 4 mg Q4H PRN IVP Nausea & Vomiting 07/09/17 08:45 08/08/17 08:44 Vancomycin HCl (Vanco rx to dose) 1 ea DAILY PRN MISC Per rx protocol 07/09/17 08:45 08/08/17 08:44 Vancomycin/Sodium Chloride 250 ml @ 166.667 mls/hr Q24H IVPB 07/11/17 13:30 07/16/17 13:29 07/11/17 14:06 Dong Ambriz MD Jul 11, 2017 15:36
[2017-07-11 17:02] LABS: CREATINE KINASE 66 U/L (26-308)
--- NOTE | 2017-07-11 17:14 | Internal Med Progress Note ---
Subjective Date of Service: Jul 11, 2017 Physician Name Kelle Weinstein Attending Physician Cirilo Blancas MD Current Medications Medications (Trade) Dose Ordered Sig/Alfonso Route PRN Reason Start Time Stop Time Status Last Admin Dose Admin Acetaminophen (Tylenol) 650 mg Q4H PRN ORAL Mild Pain/Temp > 100.5 07/09/17 08:45 08/08/17 08:44 Acetaminophen/ Hydrocodone Bitart ([place] 5/325) 1 tab Q6H PRN ORAL PAIN 4-10 07/09/17 08:45 07/16/17 08:44 Amlodipine Besylate (Norvasc) 5 mg EVERY 12 HOURS ORAL 07/11/17 21:00 08/10/17 20:59 Carvedilol (Coreg) 3.125 mg EVERY 12 HOURS ORAL 07/09/17 09:00 08/08/17 08:59 07/11/17 08:20 Ceftriaxone Sodium 1 gm/ Dextrose 110 ml @ 220 mls/hr Q24H IVPB 07/09/17 23:00 07/16/17 22:59 07/10/17 23:24 Clonidine HCl (Catapres Tab) 0.1 mg Q4H PRN ORAL sbp more than 160 07/11/17 15:45 08/10/17 15:44 Dextrose (Dextrose 50%) 25 ml STAT PRN IV Hypoglycemia 07/09/17 08:45 08/08/17 08:44 Dextrose (Dextrose 50%) 50 ml STAT PRN IV Hypoglycemia 07/09/17 08:45 08/08/17 08:44 Glipizide (Glucotrol) 10 mg BIAC ORAL 07/09/17 16:30 08/08/17 16:29 07/11/17 16:31 Heparin Sodium (Porcine) (Heparin 5000 units/ml) 5,000 units EVERY 8 HOURS SUBQ 07/09/17 14:00 08/08/17 13:59 07/11/17 06:39 Insulin Aspart (NovoLOG) BEFORE MEALS AND HS SUBQ 07/09/17 11:30 08/08/17 11:29 07/11/17 11:45 Ondansetron HCl (Zofran) 4 mg Q4H PRN IVP Nausea & Vomiting 07/09/17 08:45 08/08/17 08:44 Vancomycin HCl (Vanco rx to dose) 1 ea DAILY PRN MISC Per rx protocol 07/09/17 08:45 08/08/17 08:44 Vancomycin/Sodium Chloride 250 ml @ 166.667 mls/hr Q24H IVPB 07/11/17 13:30 07/16/17 13:29 07/11/17 14:06 Allergies: Coded Allergies: No Known Allergies (Unverified , 01/12/13) ROS Limited/Unobtainable: No Constitutional: Reports: no symptoms HEENT: Reports: no symptoms Cardiovascular: Reports: no symptoms Respiratory: Reports: no symptoms Gastrointestinal/Abdominal: Reports: no symptoms Genitourinary: Reports: no symptoms 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: Reports: no symptoms Subjective 89 YO F admitted with cough and UTI. Now cellulitis left leg. Cover for Int [facility]-Dr Blancas. Objective Last Vital Signs Date Time Temp Pulse Resp B/P (MAP) Pulse Ox O2 Delivery O2 Flow Rate FiO2 07/11/17 12:01 98.4 66 20 157/71 98 Room Air 98.4 Laboratory Tests Test 07/11/17 07:40 07/11/17 10:15 White Blood Count 9.4 K/UL (4.8-10.8) Red Blood Count 4.07 M/UL (4.20-5.40) L Hemoglobin 9.9 G/DL (12.0-16.0) L Hematocrit 30.8 % (37.0-47.0) L Mean Corpuscular Volume 76 FL (80-99) L Mean Corpuscular Hemoglobin 24.4 PG (27.0-31.0) L Mean Corpuscular Hemoglobin Concent 32.2 G/DL (32.0-36.0) Red Cell Distribution Width 13.8 % (11.6-14.8) Platelet Count 199 K/UL (150-450) Mean Platelet Volume 9.9 FL (6.5-10.1) Neutrophils (%) (Auto) 62.8 % (45.0-75.0) Lymphocytes (%) (Auto) 22.6 % (20.0-45.0) Monocytes (%) (Auto) 10.3 % (1.0-10.0) H Eosinophils (%) (Auto) 3.2 % (0.0-3.0) H Basophils (%) (Auto) 1.1 % (0.0-2.0) Sodium Level 137 MMOL/L (136-145) Potassium Level 4.4 MMOL/L (3.5-5.1) Chloride Level 103 MMOL/L (98-107) Carbon Dioxide Level 30 MMOL/L (21-32) Anion Gap 4 mmol/L (5-15) L Blood Urea Nitrogen 43 mg/dL (7-18) H Creatinine 1.8 MG/DL (0.55-1.30) H Estimat Glomerular Filtration Rate 33.8 mL/min (>60) Glucose Level 172 MG/DL (74-106) H Uric Acid 7.8 MG/DL (2.6-7.2) H Calcium Level 8.7 MG/DL (8.5-10.1) Total Creatine Kinase 66 U/L (26-308) Vancomycin Level Trough 15.7 ug/mL (5.0-12.0) H Microbiology Date/Time Source Procedure Growth Status 07/08/17 23:30 Blood Blood Culture - Preliminary NO GROWTH AFTER 48 HOURS Resulted 07/08/17 23:15 Blood Blood Culture - Preliminary NO GROWTH AFTER 48 HOURS Resulted Intake and Output 07/10/17 07/11/17 19:00 07:00 Intake Total 110 ml Balance 110 ml IV Total 110 ml # Voids 3 Objective General Appearance: WD/WN, no apparent distress, alert EENT: PERRL/EOMI, normal ENT inspection, TMs normal Neck: non-tender, normal alignment, supple Cardiovascular: normal peripheral pulses, normal rate, regular rhythm, no gallop/murmur, no JVD Respiratory/Chest: chest wall non-tender, lungs clear, normal breath sounds, no respiratory distress, no accessory muscle use Abdomen: normal bowel sounds, non tender, soft, no organomegaly, no mass Extremities: normal range of motion, non-tender 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
[2017-07-11 19:46] LABS: APPEARANCE,URINE CLEAR; BILIRUBIN, URINE NEGATIVE (NEGATIVE); COLOR,URINE PALE YELLOW; GLUCOSE, URINE (UA) NEGATIVE (NEGATIVE); KETONES,URINE NEGATIVE (NEGATIVE); LEUKOCYTE ESTERASE ,URINE NEGATIVE (NEGATIVE); NITRITE,URINE NEGATIVE (NEGATIVE); PH,URINE 5 (4.5-8.0); PROTEIN,URINE 3+ (NEGATIVE); UROBILINOGEN,URINE NORMAL MG/DL (0.0-1.0)
[2017-07-11] MEDS: cefTRIAXone 1 GM in D5W 110 ML IVPB SCH (23:10)
[2017-07-12] VITALS: BP 157/75
[2017-07-12 04:00] VITALS: BP 152/70
[2017-07-12] MEDS: GlipiZIDE 10mg tab ORAL SCH ×2 (06:00→17:26)
[2017-07-12] MEDS: NovoLOG Insulin Flexpen SUBQ SCH ×4 (06:05→21:00)
[2017-07-12] MEDS: Heparin 5000 units/ml inj SUBQ SCH ×3 (06:05→21:44)
[2017-07-12 06:54] LABS: ALANINE AMINOTRANSFERASE 15 U/L (12-78); ALBUMIN 2.4 G/DL (3.4-5.0); ALBUMIN/GLOBULIN RATIO 0.6 (1.0-2.7); ALKALINE PHOSPHATASE 96 U/L (46-116); ANION GAP 6 mmol/L (5-15); ASPARTATE AMINO TRANSFERASE 14 U/L (15-37); BILIRUBIN,TOTAL 0.2 MG/DL (0.2-1.0); BLOOD UREA NITROGEN 44 mg/dL (7-18); CALCIUM 8.3 MG/DL (8.5-10.1); CARBON DIOXIDE 29 MMOL/L (21-32); CHLORIDE 104 MMOL/L (98-107); CREATININE 1.6 MG/DL (0.55-1.30); PHOSPHORUS 4.2 MG/DL (2.5-4.9); POTASSIUM 4.1 MMOL/L (3.5-5.1); SODIUM 139 MMOL/L (136-145)
[2017-07-12 07:14] LABS: BASOPHILS % (AUTO) 1.1 % (0.0-2.0); EOSINOPHILS % (AUTO) 3.5 % (0.0-3.0); HEMATOCRIT 27.9 % (37.0-47.0); HEMOGLOBIN 8.8 G/DL (12.0-16.0); LYMPHOCYTES % (AUTO) 25.1 % (20.0-45.0); MEAN CORPUSCULAR VOLUME 75 FL (80-99); MONOCYTES % (AUTO) 9.9 % (1.0-10.0); NEUTROPHILS % (AUTO) 60.4 % (45.0-75.0); PLATELET COUNT 194 K/UL (150-450); RED BLOOD COUNT 3.72 M/UL (4.20-5.40); RED CELL DISTRIBUTION WIDTH 13.4 % (11.6-14.8); WHITE BLOOD COUNT 8.6 K/UL (4.8-10.8)
[2017-07-12 08:00] VITALS: BP 166/70
--- NOTE | 2017-07-12 11:13 | General Progress Note ---
Assessment/Plan Status: stable Assessment/Plan encephalopathy due to [facility] -risperdal 1mg qhs -provided ro Subjective Date patient seen: Jul 12, 2017 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: Reports: anxiety, emotional problems Allergies: Coded Allergies: No Known Allergies (Unverified , 01/12/13) Subjective the pt is confused about his medication dosage and may not have been taking her meds correctly. the pt is confused Objective Last 24 Hour Vital Signs Date Time Temp Pulse Resp B/P (MAP) Pulse Ox O2 Delivery O2 Flow Rate FiO2 07/12/17 09:20 70 166/70 07/12/17 09:20 70 166/70 07/12/17 08:00 97.8 70 18 166/70 100 97.8 07/12/17 04:00 97.9 71 20 152/70 100 97.9 07/12/17 00:00 97.0 73 20 157/75 99 97.0 07/11/17 21:40 133/58 07/11/17 21:00 68 160/68 07/11/17 21:00 68 160/68 07/11/17 20:00 98.3 68 20 160/68 98 98.3 07/11/17 16:00 97.3 61 20 157/60 99 97.3 07/11/17 12:01 98.4 66 20 157/71 98 Room Air 98.4 Intake and Output 07/11/17 07/12/17 19:00 07:00 Intake Total 320 ml 110 ml Balance 320 ml 110 ml Intake Oral 320 ml IV Total 110 ml # Voids 4 Laboratory Tests 07/11/17 19:00: Urine Color Pale yellow, Urine Appearance Clear, Urine pH 5, Urine Specific [place] 1.015, Urine Protein 3+H, Urine Glucose (UA) Negative, Urine Ketones Negative, Urine Occult Blood Negative, Urine Nitrite Negative, Urine Bilirubin Negative, Urine Urobilinogen Normal, Urine Leukocyte Esterase Negative, Urine RBC 0-2, Urine WBC 2-4, Urine Squamous Epithelial Cells ModerateH, Urine Amorphous Sediment FewH, Urine Bacteria Few, Urine Yeast FewH, Urine Eosinophils None seen, Urine Random Sodium 55, Urine Potassium Timed 36 07/12/17 06:15: White Blood Count 8.6, Red Blood Count 3.72L, Hemoglobin 8.8L, Hematocrit 27.9L , Mean Corpuscular Volume 75L, Mean Corpuscular Hemoglobin 23.6L, Mean Corpuscular Hemoglobin Concent 31.4L, Red Cell Distribution Width 13.4, Platelet Count 194, Mean Platelet Volume 10.1, Neutrophils (%) (Auto) 60.4, Lymphocytes (%) (Auto) 25.1, Monocytes (%) (Auto) 9.9, Eosinophils (%) (Auto) 3.5H, Basophils (%) (Auto) 1.1, Erythrocyte Sedimentation Rate 96H, Sodium Level 139, Potassium Level 4.1, Chloride Level 104, Carbon Dioxide Level 29, Anion Gap 6, Blood Urea Nitrogen 44H, Creatinine 1.6H, Estimat Glomerular Filtration Rate 38.8, Glucose Level 167H, Calcium Level 8.3L, Phosphorus Level 4.2, Magnesium Level 2.1, Total Bilirubin 0.2, Aspartate Amino Transf (AST/SGOT ) 14L, Alanine Aminotransferase (ALT/SGPT) 15, Alkaline Phosphatase 96, Total Protein 6.7, Albumin 2.4L, Globulin 4.3, Albumin/Globulin Ratio 0.6L Height (Feet): 5 Height (Inches): 4.00 Weight (Pounds): 204 General Appearance: no apparent distress, alert Neurologic: oriented x 3, responsive, depressed affect Shayna Thorpe M.D. Jul 12, 2017 11:13
--- NOTE | 2017-07-12 11:46 | Internal Med Progress Note ---
Subjective Date of Service: Jul 12, 2017 Physician Name Kelle Weinstein Attending Physician Cirilo Blancas MD Current Medications Medications (Trade) Dose Ordered Sig/Alfonso Route PRN Reason Start Time Stop Time Status Last Admin Dose Admin Acetaminophen (Tylenol) 650 mg Q4H PRN ORAL Mild Pain/Temp > 100.5 07/09/17 08:45 08/08/17 08:44 Acetaminophen/ Hydrocodone Bitart ([place] 5/325) 1 tab Q6H PRN ORAL PAIN 4-10 07/09/17 08:45 07/16/17 08:44 Amlodipine Besylate (Norvasc) 5 mg EVERY 12 HOURS ORAL 07/11/17 21:00 08/10/17 20:59 07/12/17 09:20 Carvedilol (Coreg) 3.125 mg EVERY 12 HOURS ORAL 07/09/17 09:00 08/08/17 08:59 07/12/17 09:20 Ceftriaxone Sodium 1 gm/ Dextrose 110 ml @ 220 mls/hr Q24H IVPB 07/09/17 23:00 07/16/17 22:59 07/11/17 23:10 Clonidine HCl (Catapres Tab) 0.1 mg Q4H PRN ORAL sbp more than 160 07/11/17 15:45 08/10/17 15:44 Dextrose (Dextrose 50%) 25 ml STAT PRN IV Hypoglycemia 07/09/17 08:45 08/08/17 08:44 Dextrose (Dextrose 50%) 50 ml STAT PRN IV Hypoglycemia 07/09/17 08:45 08/08/17 08:44 Glipizide (Glucotrol) 10 mg BIAC ORAL 07/09/17 16:30 08/08/17 16:29 07/12/17 06:00 Heparin Sodium (Porcine) (Heparin 5000 units/ml) 5,000 units EVERY 8 HOURS SUBQ 07/09/17 14:00 08/08/17 13:59 07/12/17 06:05 Insulin Aspart (NovoLOG) BEFORE MEALS AND HS SUBQ 07/09/17 11:30 08/08/17 11:29 07/11/17 11:45 Ondansetron HCl (Zofran) 4 mg Q4H PRN IVP Nausea & Vomiting 07/09/17 08:45 08/08/17 08:44 Risperidone (RisperDAL) 1 mg BEDTIME ORAL 07/12/17 21:00 08/11/17 20:59 Vancomycin HCl (Vanco rx to dose) 1 ea DAILY PRN MISC Per rx protocol 07/09/17 08:45 08/08/17 08:44 Vancomycin/Sodium Chloride 250 ml @ 166.667 mls/hr Q24H IVPB 07/11/17 13:30 07/16/17 13:29 07/11/17 14:06 Allergies: Coded Allergies: No Known Allergies (Unverified , 01/12/13) ROS Limited/Unobtainable: No Constitutional: Reports: no symptoms HEENT: Reports: no symptoms Cardiovascular: Reports: no symptoms Respiratory: Reports: no symptoms Genitourinary: Reports: no symptoms 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: Reports: no symptoms Subjective 89 YO F admitted with cough and UTI. Now cellulitis left leg. Cover for Int [facility]-Dr Blancas. Objective Last Vital Signs Date Time Temp Pulse Resp B/P (MAP) Pulse Ox O2 Delivery O2 Flow Rate FiO2 07/12/17 09:20 70 166/70 07/12/17 08:00 97.8 18 100 97.8 07/11/17 12:01 Room Air Laboratory Tests Test 07/11/17 19:00 07/12/17 06:15 Urine Color Pale yellow Urine Appearance Clear Urine pH 5 (4.5-8.0) Urine Specific [place] 1.015 (1.005-1.035) Urine Protein 3+ (NEGATIVE) H Urine Glucose (UA) Negative (NEGATIVE) Urine Ketones Negative (NEGATIVE) Urine Occult Blood Negative (NEGATIVE) Urine Nitrite Negative (NEGATIVE) Urine Bilirubin Negative (NEGATIVE) Urine Urobilinogen Normal MG/DL (0.0-1.0) Urine Leukocyte Esterase Negative (NEGATIVE) Urine RBC 0-2 /HPF (0 - 2) Urine WBC 2-4 /HPF (0 - 2) Urine Squamous Epithelial Cells Moderate /LPF (NONE/OCC) H Urine Amorphous Sediment Few /LPF (NONE) H Urine Bacteria Few /HPF (NONE) Urine Yeast Few /HPF (NONE) H Urine Eosinophils None seen Urine Random Sodium 55 mmol/L (20-110) Urine Potassium Timed 36 mmol/L (12-62) White Blood Count 8.6 K/UL (4.8-10.8) Red Blood Count 3.72 M/UL (4.20-5.40) L Hemoglobin 8.8 G/DL (12.0-16.0) L Hematocrit 27.9 % (37.0-47.0) L Mean Corpuscular Volume 75 FL (80-99) L Mean Corpuscular Hemoglobin 23.6 PG (27.0-31.0) L Mean Corpuscular Hemoglobin Concent 31.4 G/DL (32.0-36.0) L Red Cell Distribution Width 13.4 % (11.6-14.8) Platelet Count 194 K/UL (150-450) Mean Platelet Volume 10.1 FL (6.5-10.1) Neutrophils (%) (Auto) 60.4 % (45.0-75.0) Lymphocytes (%) (Auto) 25.1 % (20.0-45.0) Monocytes (%) (Auto) 9.9 % (1.0-10.0) Eosinophils (%) (Auto) 3.5 % (0.0-3.0) H Basophils (%) (Auto) 1.1 % (0.0-2.0) Erythrocyte Sedimentation Rate 96 MM/HR (0-30) H Sodium Level 139 MMOL/L (136-145) Potassium Level 4.1 MMOL/L (3.5-5.1) Chloride Level 104 MMOL/L (98-107) Carbon Dioxide Level 29 MMOL/L (21-32) Anion Gap 6 mmol/L (5-15) Blood Urea Nitrogen 44 mg/dL (7-18) H Creatinine 1.6 MG/DL (0.55-1.30) H Estimat Glomerular Filtration Rate 38.8 mL/min (>60) Glucose Level 167 MG/DL (74-106) H Calcium Level 8.3 MG/DL (8.5-10.1) L Phosphorus Level 4.2 MG/DL (2.5-4.9) Magnesium Level 2.1 MG/DL (1.8-2.4) Total Bilirubin 0.2 MG/DL (0.2-1.0) Aspartate Amino Transf (AST/SGOT) 14 U/L (15-37) L Alanine Aminotransferase (ALT/SGPT) 15 U/L (12-78) Alkaline Phosphatase 96 U/L (46-116) Total Protein 6.7 G/DL (6.4-8.2) Albumin 2.4 G/DL (3.4-5.0) L Globulin 4.3 g/dL Albumin/Globulin Ratio 0.6 (1.0-2.7) L Intake and Output 07/11/17 07/12/17 19:00 07:00 Intake Total 320 ml 110 ml Balance 320 ml 110 ml Intake Oral 320 ml IV Total 110 ml # Voids 4 Objective General Appearance: WD/WN, no apparent distress, alert EENT: PERRL/EOMI, normal ENT inspection, TMs normal Neck: non-tender, normal alignment, supple Cardiovascular: normal peripheral pulses, normal rate, regular rhythm, no gallop/murmur, no JVD Respiratory/Chest: chest wall non-tender, lungs clear, normal breath sounds, no respiratory distress, no accessory muscle use Abdomen: normal bowel sounds, non tender, soft, no organomegaly, no mass Extremities: normal range of motion, non-tender 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
[2017-07-12 12:00] VITALS: BP 145/70
--- NOTE | 2017-07-12 13:15 | Consultation ---
Consult Note Consult Note [id number] Gene Gottlieb MD Jul 12, 2017 13:15
[2017-07-12] MEDS: Vancomycin 750mg/NS 250ml IVPB SCH (13:42)
--- NOTE | 2017-07-12 13:43 | Cardiac Electrophysiology PN ---
Subjective Subjective [id number] Objective Last 24 Hour Vital Signs Date Time Temp Pulse Resp B/P (MAP) Pulse Ox O2 Delivery O2 Flow Rate FiO2 07/12/17 12:00 97.6 66 16 145/70 100 97.6 07/12/17 09:20 70 166/70 07/12/17 09:20 70 166/70 07/12/17 08:00 97.8 70 18 166/70 100 97.8 07/12/17 04:00 97.9 71 20 152/70 100 97.9 07/12/17 00:00 97.0 73 20 157/75 99 97.0 07/11/17 21:40 133/58 07/11/17 21:00 68 160/68 07/11/17 21:00 68 160/68 07/11/17 20:00 98.3 68 20 160/68 98 98.3 07/11/17 16:00 97.3 61 20 157/60 99 97.3 Intake and Output 07/11/17 07/12/17 19:00 07:00 Intake Total 320 ml 110 ml Balance 320 ml 110 ml Intake Oral 320 ml IV Total 110 ml # Voids 4 Laboratory Tests Test 07/11/17 19:00 07/12/17 06:15 Urine Color Pale yellow Urine Appearance Clear Urine pH 5 (4.5-8.0) Urine Specific [place] 1.015 (1.005-1.035) Urine Protein 3+ (NEGATIVE) H Urine Glucose (UA) Negative (NEGATIVE) Urine Ketones Negative (NEGATIVE) Urine Occult Blood Negative (NEGATIVE) Urine Nitrite Negative (NEGATIVE) Urine Bilirubin Negative (NEGATIVE) Urine Urobilinogen Normal MG/DL (0.0-1.0) Urine Leukocyte Esterase Negative (NEGATIVE) Urine RBC 0-2 /HPF (0 - 2) Urine WBC 2-4 /HPF (0 - 2) Urine Squamous Epithelial Cells Moderate /LPF (NONE/OCC) H Urine Amorphous Sediment Few /LPF (NONE) H Urine Bacteria Few /HPF (NONE) Urine Yeast Few /HPF (NONE) H Urine Eosinophils None seen Urine Random Sodium 55 mmol/L (20-110) Urine Potassium Timed 36 mmol/L (12-62) White Blood Count 8.6 K/UL (4.8-10.8) Red Blood Count 3.72 M/UL (4.20-5.40) L Hemoglobin 8.8 G/DL (12.0-16.0) L Hematocrit 27.9 % (37.0-47.0) L Mean Corpuscular Volume 75 FL (80-99) L Mean Corpuscular Hemoglobin 23.6 PG (27.0-31.0) L Mean Corpuscular Hemoglobin Concent 31.4 G/DL (32.0-36.0) L Red Cell Distribution Width 13.4 % (11.6-14.8) Platelet Count 194 K/UL (150-450) Mean Platelet Volume 10.1 FL (6.5-10.1) Neutrophils (%) (Auto) 60.4 % (45.0-75.0) Lymphocytes (%) (Auto) 25.1 % (20.0-45.0) Monocytes (%) (Auto) 9.9 % (1.0-10.0) Eosinophils (%) (Auto) 3.5 % (0.0-3.0) H Basophils (%) (Auto) 1.1 % (0.0-2.0) Erythrocyte Sedimentation Rate 96 MM/HR (0-30) H Sodium Level 139 MMOL/L (136-145) Potassium Level 4.1 MMOL/L (3.5-5.1) Chloride Level 104 MMOL/L (98-107) Carbon Dioxide Level 29 MMOL/L (21-32) Anion Gap 6 mmol/L (5-15) Blood Urea Nitrogen 44 mg/dL (7-18) H Creatinine 1.6 MG/DL (0.55-1.30) H Estimat Glomerular Filtration Rate 38.8 mL/min (>60) Glucose Level 167 MG/DL (74-106) H Calcium Level 8.3 MG/DL (8.5-10.1) L Phosphorus Level 4.2 MG/DL (2.5-4.9) Magnesium Level 2.1 MG/DL (1.8-2.4) Total Bilirubin 0.2 MG/DL (0.2-1.0) Aspartate Amino Transf (AST/SGOT) 14 U/L (15-37) L Alanine Aminotransferase (ALT/SGPT) 15 U/L (12-78) Alkaline Phosphatase 96 U/L (46-116) Total Protein 6.7 G/DL (6.4-8.2) Albumin 2.4 G/DL (3.4-5.0) L Globulin 4.3 g/dL Albumin/Globulin Ratio 0.6 (1.0-2.7) L Talon Jorge MD Jul 12, 2017 13:43
--- NOTE | 2017-07-12 15:39 | Cardiology Report ---
APPROVED REPORT EXAM: Two-dimensional and M-mode echocardiogram with Doppler and color Doppler. INDICATION Hypertension/HCVD M-Mode DIMENSIONS IVSd1.2 (0.7-1.1cm)Left Atrium (MM)3.8 (1.6-4.0cm) LVDd5.0 (3.5-5.6cm)Aortic Root2.9 (2.0-3.7cm) PWd1.5 (0.7-1.1cm)Aortic Cusp Exc.1.6 (1.5-2.0cm) IVSs1.7 cm LVDs2.9 (2.5-4.0cm) PWs1.9 cm Normal left ventricular chamber size, systolic function and wall motion . Left ventricular ejection fraction estimated to be 65-70 %. Mild left ventricular hypertrophy by 2-D. No evidence of pericardial effusion. Mild left atrial enlargements . Right cardiac chamber sizes are within normal limits. Focal aortic valve sclerosis with adequate cusp excursion. Mildly Thickened mitral valve leaflets with normal excursion. Mildly Mitral annulus and aortic root calcification. pulmonic valve structure not well visualized . Normal tricuspid valve structure. IVC at normal size with physiologic collapse. A color flow and spectral Doppler study was performed and revealed: No aortic regurgitation. Mild mitral regurgitation. Mitral diastolic velocities suggest reduced left ventricular relaxation c/w mild LV diastolic dysfunction (Grade I ). Trace tricuspid regurgitation. Tricuspid systolic velocities suggests peak right ventricular systolic pressure of 31mmHg, consistent with mild pulmonary hypertension.
[2017-07-12 16:00] VITALS: BP 141/81
--- NOTE | 2017-07-12 17:53 | Psych Consult Progress Note ---
Psych Consult Progress Note Consult 07/11/17 the pt mental condition is improving. at times paranoid and confused about his medications. Vital Signs Last 24 Hour Vital Signs Date Time Temp Pulse Resp B/P (MAP) Pulse Ox O2 Delivery O2 Flow Rate FiO2 07/12/17 12:00 97.6 66 16 145/70 100 97.6 07/12/17 09:20 70 166/70 07/12/17 09:20 70 166/70 07/12/17 08:00 97.8 70 18 166/70 100 97.8 07/12/17 04:00 97.9 71 20 152/70 100 97.9 07/12/17 00:00 97.0 73 20 157/75 99 97.0 07/11/17 21:40 133/58 07/11/17 21:00 68 160/68 07/11/17 21:00 68 160/68 07/11/17 20:00 98.3 68 20 160/68 98 98.3 Labs Laboratory Tests Test 07/11/17 19:00 07/12/17 06:15 Urine Color Pale yellow Urine Appearance Clear Urine pH 5 (4.5-8.0) Urine Specific [place] 1.015 (1.005-1.035) Urine Protein 3+ (NEGATIVE) H Urine Glucose (UA) Negative (NEGATIVE) Urine Ketones Negative (NEGATIVE) Urine Occult Blood Negative (NEGATIVE) Urine Nitrite Negative (NEGATIVE) Urine Bilirubin Negative (NEGATIVE) Urine Urobilinogen Normal MG/DL (0.0-1.0) Urine Leukocyte Esterase Negative (NEGATIVE) Urine RBC 0-2 /HPF (0 - 2) Urine WBC 2-4 /HPF (0 - 2) Urine Squamous Epithelial Cells Moderate /LPF (NONE/OCC) H Urine Amorphous Sediment Few /LPF (NONE) H Urine Bacteria Few /HPF (NONE) Urine Yeast Few /HPF (NONE) H Urine Eosinophils None seen Urine Random Sodium 55 mmol/L (20-110) Urine Potassium Timed 36 mmol/L (12-62) White Blood Count 8.6 K/UL (4.8-10.8) Red Blood Count 3.72 M/UL (4.20-5.40) L Hemoglobin 8.8 G/DL (12.0-16.0) L Hematocrit 27.9 % (37.0-47.0) L Mean Corpuscular Volume 75 FL (80-99) L Mean Corpuscular Hemoglobin 23.6 PG (27.0-31.0) L Mean Corpuscular Hemoglobin Concent 31.4 G/DL (32.0-36.0) L Red Cell Distribution Width 13.4 % (11.6-14.8) Platelet Count 194 K/UL (150-450) Mean Platelet Volume 10.1 FL (6.5-10.1) Neutrophils (%) (Auto) 60.4 % (45.0-75.0) Lymphocytes (%) (Auto) 25.1 % (20.0-45.0) Monocytes (%) (Auto) 9.9 % (1.0-10.0) Eosinophils (%) (Auto) 3.5 % (0.0-3.0) H Basophils (%) (Auto) 1.1 % (0.0-2.0) Erythrocyte Sedimentation Rate 96 MM/HR (0-30) H Sodium Level 139 MMOL/L (136-145) Potassium Level 4.1 MMOL/L (3.5-5.1) Chloride Level 104 MMOL/L (98-107) Carbon Dioxide Level 29 MMOL/L (21-32) Anion Gap 6 mmol/L (5-15) Blood Urea Nitrogen 44 mg/dL (7-18) H Creatinine 1.6 MG/DL (0.55-1.30) H Estimat Glomerular Filtration Rate 38.8 mL/min (>60) Glucose Level 167 MG/DL (74-106) H Calcium Level 8.3 MG/DL (8.5-10.1) L Phosphorus Level 4.2 MG/DL (2.5-4.9) Magnesium Level 2.1 MG/DL (1.8-2.4) Total Bilirubin 0.2 MG/DL (0.2-1.0) Aspartate Amino Transf (AST/SGOT) 14 U/L (15-37) L Alanine Aminotransferase (ALT/SGPT) 15 U/L (12-78) Alkaline Phosphatase 96 U/L (46-116) Total Protein 6.7 G/DL (6.4-8.2) Albumin 2.4 G/DL (3.4-5.0) L Globulin 4.3 g/dL Albumin/Globulin Ratio 0.6 (1.0-2.7) L Medications Current Medications Medications (Trade) Dose Ordered Sig/Alfonso Route PRN Reason Start Time Stop Time Status Last Admin Dose Admin Acetaminophen (Tylenol) 650 mg Q4H PRN ORAL Mild Pain/Temp > 100.5 07/09/17 08:45 08/08/17 08:44 Acetaminophen/ Hydrocodone Bitart ([place] 5/325) 1 tab Q6H PRN ORAL PAIN 4-10 07/09/17 08:45 07/16/17 08:44 Amlodipine Besylate (Norvasc) 5 mg EVERY 12 HOURS ORAL 07/11/17 21:00 08/10/17 20:59 07/12/17 09:20 Carvedilol (Coreg) 3.125 mg EVERY 12 HOURS ORAL 07/09/17 09:00 08/08/17 08:59 07/12/17 09:20 Ceftriaxone Sodium 1 gm/ Dextrose 110 ml @ 220 mls/hr Q24H IVPB 07/09/17 23:00 07/16/17 22:59 07/11/17 23:10 Clonidine HCl (Catapres Tab) 0.1 mg Q4H PRN ORAL sbp more than 160 07/11/17 15:45 08/10/17 15:44 Dextrose (Dextrose 50%) 25 ml STAT PRN IV Hypoglycemia 07/09/17 08:45 08/08/17 08:44 Dextrose (Dextrose 50%) 50 ml STAT PRN IV Hypoglycemia 07/09/17 08:45 08/08/17 08:44 Glipizide (Glucotrol) 10 mg BIAC ORAL 07/09/17 16:30 08/08/17 16:29 07/12/17 17:26 Heparin Sodium (Porcine) (Heparin 5000 units/ml) 5,000 units EVERY 8 HOURS SUBQ 07/09/17 14:00 08/08/17 13:59 07/12/17 06:05 Insulin Aspart (NovoLOG) BEFORE MEALS AND HS SUBQ 07/09/17 11:30 08/08/17 11:29 07/11/17 11:45 Ondansetron HCl (Zofran) 4 mg Q4H PRN IVP Nausea & Vomiting 07/09/17 08:45 08/08/17 08:44 Risperidone (RisperDAL) 1 mg BEDTIME ORAL 07/12/17 21:00 08/11/17 20:59 Vancomycin HCl (Vanco rx to dose) 1 ea DAILY PRN MISC Per rx protocol 07/09/17 08:45 08/08/17 08:44 Vancomycin/Sodium Chloride 250 ml @ 166.667 mls/hr Q24H IVPB 07/11/17 13:30 07/16/17 13:29 07/12/17 13:42 Problems: (1) Diabetes mellitus, type II (2) Renal insufficiency Status: Acute (3) Hyperkalemia Status: Acute (4) Altered mental status (5) HTN (hypertension) Status: Acute (6) Cellulitis of leg, left (7) Anemia Status: Acute (8) Cellulitis Status: Acute (9) Peripheral neuropathy Status: Acute (10) Renal failure (11) Diabetic foot ulcer Status: Acute (12) Diabetic foot ulcer with osteomyelitis Status: Acute (13) Diabetic foot ulcer with osteomyelitis Status: Acute (14) Pain in right foot Status: Acute (15) Left leg cellulitis (16) DM Status: Acute (17) chronic osteomyelitis Status: Acute Shayna Thorpe M.D. Jul 12, 2017 17:53
--- NOTE | 2017-07-12 19:30 | Consultation ---
DATE OF CONSULTATION: 07/12/2017 CARDIOLOGY CONSULTATION CONSULTING PHYSICIAN: Talon Jorge M.D. REFERRING PHYSICIAN: Cirilo Blancas M.D. REASON FOR CONSULTATION: Hypertension. HISTORY OF PRESENT ILLNESS: The patient is a very pleasant, 71-year-old lady with history of hypertension and diabetes, who was admitted with a leg ulcer and has swelling and redness for 5 days. The patient was started on p.o. antibiotic as an outpatient, however, did not improve. The patient was also confused and dehydrated. The patient was admitted and a Cardiology consultation was obtained for further evaluation and management. REVIEW OF SYSTEMS: Negative other than what is mentioned in the history of present illness. PAST MEDICAL HISTORY: 1. Hypertension. 2. Diabetes. 3. History of peripheral neuropathy, status post right foot surgery in February 2013. SOCIAL HISTORY: Does not smoke or drink alcohol. Lives at home. PHYSICAL EXAMINATION: VITAL SIGNS: Blood pressure 181/74 that improved to 166/70, pulse is 70, respirations 18, and she is afebrile. HEAD AND NECK: Showed no JVD or carotid bruits. LUNGS: Clear. CARDIOVASCULAR: Shows regular S1 and S2 with no gallop or murmur. ABDOMEN: Soft. EXTREMITIES: 1+ pitting edema that was also in the left leg. LABORATORY DATA: Her lower extremity Doppler showed evidence of no DVT. Her labs show white count of 8.6, hemoglobin 8.8, hematocrit of 28, and platelet count is 194. Sodium 139, potassium 4.1, BUN of 44, creatinine 1.6, and glucose of 167. INR is 1. ASSESSMENT AND PLAN: 1. Accelerated hypertension. Blood pressure up to 180s. The patient is on Norvasc 5 mg b.i.d. and p.r.n. clonidine. The patient is also on Coreg 3.125 mg daily. I will increase it to 6.25 mg b.i.d. I will get an echocardiogram for further evaluation. 2. Diabetes. 3. Foot ulcer, on vancomycin and ceftriaxone for further evaluation by Infectious Disease. 4. Dementia, on Risperdal. Thank you very much, Dr. Blancas, for allowing me to participate in the care of this patient. Please do not hesitate to contact me for any questions regarding my evaluation. Talon Jorge M.D. DR: LEO JOB#: [id number] CC:
--- NOTE | 2017-07-12 19:34 | Pulmonology Progress Note ---
Assessment/Plan Problems: (1) Cellulitis of leg, left (2) HTN (hypertension) (3) Hyperkalemia (4) Diabetes mellitus, type II Assessment/Plan improving continue abx wound care, change dressing as protocol check cultures check electrolytes symptoamtic treatment bun/creatinine stabnle, hold lisinopril and HCTZ for BP use Norvasc and prn clonidine, bp btter controlled Subjective ROS Limited/Unobtainable: No Constitutional: Reports: no symptoms HEENT: Repors: no symptoms Allergies: Coded Allergies: No Known Allergies (Unverified , 01/12/13) Objective Last 24 Hour Vital Signs Date Time Temp Pulse Resp B/P (MAP) Pulse Ox O2 Delivery O2 Flow Rate FiO2 07/12/17 16:00 97.7 73 18 141/81 100 97.7 07/12/17 12:00 97.6 66 16 145/70 100 97.6 07/12/17 09:20 70 166/70 07/12/17 09:20 70 166/70 07/12/17 08:00 97.8 70 18 166/70 100 97.8 07/12/17 04:00 97.9 71 20 152/70 100 97.9 07/12/17 00:00 97.0 73 20 157/75 99 97.0 07/11/17 21:40 133/58 07/11/17 21:00 68 160/68 07/11/17 21:00 68 160/68 07/11/17 20:00 98.3 68 20 160/68 98 98.3 Intake and Output 07/11/17 07/12/17 19:00 07:00 Intake Total 320 ml 110 ml Balance 320 ml 110 ml Intake Oral 320 ml IV Total 110 ml # Voids 4 Objective General Appearance: cachetic HEENT: normocephalic, atraumatic Respiratory/Chest: chest wall non-tender, lungs clear Cardiovascular: normal rate, regular rhythm Abdomen: normal bowel sounds, soft, non tender, non distended Genitourinary: normal external genitalia Extremities: + rash Laboratory Tests 07/12/17 06:15: White Blood Count 8.6, Red Blood Count 3.72L, Hemoglobin 8.8L, Hematocrit 27.9L , Mean Corpuscular Volume 75L, Mean Corpuscular Hemoglobin 23.6L, Mean Corpuscular Hemoglobin Concent 31.4L, Red Cell Distribution Width 13.4, Platelet Count 194, Mean Platelet Volume 10.1, Neutrophils (%) (Auto) 60.4, Lymphocytes (%) (Auto) 25.1, Monocytes (%) (Auto) 9.9, Eosinophils (%) (Auto) 3.5H, Basophils (%) (Auto) 1.1, Erythrocyte Sedimentation Rate 96H, Sodium Level 139, Potassium Level 4.1, Chloride Level 104, Carbon Dioxide Level 29, Anion Gap 6, Blood Urea Nitrogen 44H, Creatinine 1.6H, Estimat Glomerular Filtration Rate 38.8, Glucose Level 167H, Calcium Level 8.3L, Phosphorus Level 4.2, Magnesium Level 2.1, Total Bilirubin 0.2, Aspartate Amino Transf (AST/SGOT ) 14L, Alanine Aminotransferase (ALT/SGPT) 15, Alkaline Phosphatase 96, Total Protein 6.7, Albumin 2.4L, Globulin 4.3, Albumin/Globulin Ratio 0.6L Current Medications Medications (Trade) Dose Ordered Sig/Alfonso Route PRN Reason Start Time Stop Time Status Last Admin Dose Admin Acetaminophen (Tylenol) 650 mg Q4H PRN ORAL Mild Pain/Temp > 100.5 07/09/17 08:45 08/08/17 08:44 Acetaminophen/ Hydrocodone Bitart ([place] 5/325) 1 tab Q6H PRN ORAL PAIN 4-10 07/09/17 08:45 07/16/17 08:44 Amlodipine Besylate (Norvasc) 5 mg EVERY 12 HOURS ORAL 07/11/17 21:00 08/10/17 20:59 07/12/17 09:20 Carvedilol (Coreg) 3.125 mg EVERY 12 HOURS ORAL 07/09/17 09:00 08/08/17 08:59 07/12/17 09:20 Ceftriaxone Sodium 1 gm/ Dextrose 110 ml @ 220 mls/hr Q24H IVPB 07/09/17 23:00 07/16/17 22:59 07/11/17 23:10 Clonidine HCl (Catapres Tab) 0.1 mg Q4H PRN ORAL sbp more than 160 07/11/17 15:45 08/10/17 15:44 Dextrose (Dextrose 50%) 25 ml STAT PRN IV Hypoglycemia 07/09/17 08:45 08/08/17 08:44 Dextrose (Dextrose 50%) 50 ml STAT PRN IV Hypoglycemia 07/09/17 08:45 08/08/17 08:44 Glipizide (Glucotrol) 10 mg BIAC ORAL 07/09/17 16:30 08/08/17 16:29 07/12/17 17:26 Heparin Sodium (Porcine) (Heparin 5000 units/ml) 5,000 units EVERY 8 HOURS SUBQ 07/09/17 14:00 08/08/17 13:59 07/12/17 06:05 Insulin Aspart (NovoLOG) BEFORE MEALS AND HS SUBQ 07/09/17 11:30 08/08/17 11:29 07/11/17 11:45 Ondansetron HCl (Zofran) 4 mg Q4H PRN IVP Nausea & Vomiting 07/09/17 08:45 08/08/17 08:44 Risperidone (RisperDAL) 1 mg BEDTIME ORAL 07/12/17 21:00 08/11/17 20:59 Vancomycin HCl (Vanco rx to dose) 1 ea DAILY PRN MISC Per rx protocol 07/09/17 08:45 08/08/17 08:44 Vancomycin/Sodium Chloride 250 ml @ 166.667 mls/hr Q24H IVPB 07/11/17 13:30 07/16/17 13:29 07/12/17 13:42 Dong Ambriz MD Jul 12, 2017 19:34
[2017-07-12 20:00] VITALS: BP 171/75
[2017-07-12] MEDS: cefTRIAXone 1 GM in D5W 110 ML IVPB SCH (22:09)
[2017-07-13] VITALS (7 sets, daily range): BP systolic 113–181; BP diastolic 57–82
--- NOTE | 2017-07-13 00:30 | Consultation ---
DATE OF CONSULTATION: 07/12/2017 INFECTIOUS DISEASE CONSULTATION CONSULTING PHYSICIAN: Gene Gottlieb M.D. REFERRING PHYSICIAN: Jony Cardona M.D. REASON FOR CONSULTATION: Evaluation of the patient for left lower extremity wound/cellulitis and antibiotic management. HISTORY OF PRESENT ILLNESS: The patient is a 71-year-old female with multiple medical problems as listed below, who came to the hospital because of swelling and tenderness of the left leg and wound with some mild discharge. The patient did take oral Keflex as outpatient for two days without significant improvement and came to the hospital for further evaluation. PAST MEDICAL HISTORY: 1. Hypertension. 2. 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 3. Diabetes. 4. Depression/anxiety. 5. Anemia. ALLERGIES: No known drug allergies. MEDICATIONS: IV vancomycin and Rocephin. SOCIAL HISTORY: Negative for alcohol, drug abuse, or smoking. REVIEW OF SYSTEMS: HEENT: No recent change in vision or hearing. PULMONARY: No cough or shortness of breath. CARDIOVASCULAR: No chest pain or palpitations. GASTROINTESTINAL: No nausea or vomiting. GENITOURINARY: No dysuria. MUSCULOSKELETAL: As mentioned above. PHYSICAL EXAMINATION: VITAL SIGNS: Temperature 97 degrees, pulse 86, respiratory rate 18, and blood pressure 145/70. HEENT: No pale conjunctivae. No icterus. NECK: No lymphadenopathy. CHEST: Clear. HEART: S1 and S2. ABDOMEN: Soft. EXTREMITIES: No cyanosis. NEUROLOGIC: Awake. SKIN: The patient has edema and erythema of left lower extremity. LABORATORY AND DIAGNOSTIC DATA: White blood cells 8.6, hemoglobin 8.8, and platelets 194. UA unremarkable. BUN 44 and creatinine 1.6. Liver function tests are unremarkable. CRP 15. Blood culture, no growth. Doppler of lower extremity, no DVT. ASSESSMENT: The patient is a 71-year-old female with: 1. Left lower extremity cellulitis/wound infection. 2. Chronic lower extremity edema. PLAN: 1. We will continue the patient on vancomycin and Rocephin. 2. Monitor CBC. 3. Monitor BMP. 4. Monitor blood culture. 5. We will order wound culture. 6. Monitor creatinine. 7. Based on the patient's clinical course and labs, we will do further recommendations. Thank you, Dr. Cardona and Dr. Ambriz, for allowing me to participate in the care of this patient. I will follow the patient with you during this hospitalization. Gene Gottlieb M.D. DR: ARTEM JOB#: [id number] CC:
[2017-07-13] MEDS: Heparin 5000 units/ml inj SUBQ SCH ×3 (06:00→14:00)
[2017-07-13] MEDS: GlipiZIDE 10mg tab ORAL SCH ×2 (06:10→16:30)
[2017-07-13] MEDS: NovoLOG Insulin Flexpen SUBQ SCH ×3 (06:17→17:22)
[2017-07-13 07:39] LABS: BASOPHILS % (AUTO) 1.4 % (0.0-2.0); HEMATOCRIT 26.9 % (37.0-47.0); HEMOGLOBIN 8.5 G/DL (12.0-16.0); LYMPHOCYTES % (AUTO) 25.7 % (20.0-45.0); MEAN CORPUSCULAR VOLUME 75 FL (80-99); MONOCYTES % (AUTO) 10.7 % (1.0-10.0); NEUTROPHILS % (AUTO) 59.3 % (45.0-75.0); PLATELET COUNT 193 K/UL (150-450); RED BLOOD COUNT 3.57 M/UL (4.20-5.40); RED CELL DISTRIBUTION WIDTH 13.4 % (11.6-14.8); WHITE BLOOD COUNT 7.9 K/UL (4.8-10.8)
[2017-07-13 07:50] LABS: ANION GAP 5 mmol/L (5-15); BLOOD UREA NITROGEN 45 mg/dL (7-18); CALCIUM 8.3 MG/DL (8.5-10.1); CARBON DIOXIDE 28 MMOL/L (21-32); CHLORIDE 106 MMOL/L (98-107); CREATININE 1.5 MG/DL (0.55-1.30); POTASSIUM 4.5 MMOL/L (3.5-5.1); SODIUM 139 MMOL/L (136-145)
--- NOTE | 2017-07-13 10:34 | Infectious Diseases Prog Note ---
Assessment/Plan Assessment/Plan ASSESSMENT: The patient is a 71-year-old female with: Left lower extremity cellulitis/wound infection. ( wound culture. not sent ) Chronic lower extremity edema. Hypertension. 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 Diabetes. Depression/anxiety. Anemia. PLAN: continue the patient on vancomycin and Rocephin d # 5 / 10 , upon DC will change to Bactrim and Keflex to complete the course Monitor CBC. Monitor BMP. Monitor blood culture. Monitor creatinine. Subjective Constitutional: Denies: no symptoms, fever, chills, fatigue, anorexia, drenching sweats, other Allergies: Coded Allergies: No Known Allergies (Unverified , 01/12/13) Objective Vital Signs Last 24 Hour Vital Signs Date Time Temp Pulse Resp B/P (MAP) Pulse Ox O2 Delivery O2 Flow Rate FiO2 07/13/17 09:06 72 162/67 07/13/17 09:06 72 162/67 07/13/17 08:00 97.7 72 21 162/67 99 Room Air 97.7 07/13/17 04:00 98.0 71 20 113/76 97 98.0 07/13/17 00:00 97.1 74 20 166/61 98 97.1 07/12/17 21:00 70 171/75 07/12/17 21:00 70 171/75 07/12/17 20:00 Room Air 07/12/17 20:00 98.2 70 20 171/75 98 98.2 07/12/17 16:00 97.7 73 18 141/81 100 97.7 07/12/17 12:00 97.6 66 16 145/70 100 97.6 Height (Feet): 5 Height (Inches): 4.00 Weight (Pounds): 204 HEENT: anicteric Respiratory/Chest: normal breath sounds Cardiovascular: regular rhythm Abdomen: no organomegaly Microbiology Date/Time Source Procedure Growth Status 07/11/17 19:00 Urine,Clean Catch Urine Culture - Preliminary Resulted Laboratory Tests Test 07/13/17 06:00 White Blood Count 7.9 K/UL (4.8-10.8) Red Blood Count 3.57 M/UL (4.20-5.40) L Hemoglobin 8.5 G/DL (12.0-16.0) L Hematocrit 26.9 % (37.0-47.0) L Mean Corpuscular Volume 75 FL (80-99) L Mean Corpuscular Hemoglobin 23.8 PG (27.0-31.0) L Mean Corpuscular Hemoglobin Concent 31.6 G/DL (32.0-36.0) L Red Cell Distribution Width 13.4 % (11.6-14.8) Platelet Count 193 K/UL (150-450) Mean Platelet Volume 9.9 FL (6.5-10.1) Neutrophils (%) (Auto) 59.3 % (45.0-75.0) Lymphocytes (%) (Auto) 25.7 % (20.0-45.0) Monocytes (%) (Auto) 10.7 % (1.0-10.0) H Eosinophils (%) (Auto) 3.0 % (0.0-3.0) Basophils (%) (Auto) 1.4 % (0.0-2.0) Sodium Level 139 MMOL/L (136-145) Potassium Level 4.5 MMOL/L (3.5-5.1) Chloride Level 106 MMOL/L (98-107) Carbon Dioxide Level 28 MMOL/L (21-32) Anion Gap 5 mmol/L (5-15) Blood Urea Nitrogen 45 mg/dL (7-18) H Creatinine 1.5 MG/DL (0.55-1.30) H Estimat Glomerular Filtration Rate 41.7 mL/min (>60) Glucose Level 117 MG/DL (74-106) H Calcium Level 8.3 MG/DL (8.5-10.1) L Troponin I 0.000 ng/mL (0.000-0.056) Pro-B-Type Natriuretic Peptide 326 pg/mL (0-125) H Current Medications Medications (Trade) Dose Ordered Sig/Alfonso Route PRN Reason Start Time Stop Time Status Last Admin Dose Admin Acetaminophen (Tylenol) 650 mg Q4H PRN ORAL Mild Pain/Temp > 100.5 07/09/17 08:45 08/08/17 08:44 Acetaminophen/ Hydrocodone Bitart ([place] 5/325) 1 tab Q6H PRN ORAL PAIN 4-10 07/09/17 08:45 07/16/17 08:44 Amlodipine Besylate (Norvasc) 5 mg EVERY 12 HOURS ORAL 07/11/17 21:00 08/10/17 20:59 07/13/17 09:06 Carvedilol (Coreg) 3.125 mg EVERY 12 HOURS ORAL 07/09/17 09:00 08/08/17 08:59 07/13/17 09:06 Ceftriaxone Sodium 1 gm/ Dextrose 110 ml @ 220 mls/hr Q24H IVPB 07/09/17 23:00 07/16/17 22:59 07/12/17 22:09 Clonidine HCl (Catapres Tab) 0.1 mg Q4H PRN ORAL sbp more than 160 07/11/17 15:45 08/10/17 15:44 Dextrose (Dextrose 50%) 25 ml STAT PRN IV Hypoglycemia 07/09/17 08:45 08/08/17 08:44 Dextrose (Dextrose 50%) 50 ml STAT PRN IV Hypoglycemia 07/09/17 08:45 08/08/17 08:44 Glipizide (Glucotrol) 10 mg BIAC ORAL 07/09/17 16:30 08/08/17 16:29 07/13/17 06:10 Heparin Sodium (Porcine) (Heparin 5000 units/ml) 5,000 units EVERY 8 HOURS SUBQ 07/09/17 14:00 08/08/17 13:59 07/13/17 06:16 Insulin Aspart (NovoLOG) BEFORE MEALS AND HS SUBQ 07/09/17 11:30 08/08/17 11:29 07/11/17 11:45 Ondansetron HCl (Zofran) 4 mg Q4H PRN IVP Nausea & Vomiting 07/09/17 08:45 08/08/17 08:44 Risperidone (RisperDAL) 1 mg BEDTIME ORAL 07/12/17 21:00 08/11/17 20:59 Vancomycin HCl (Vanco rx to dose) 1 ea DAILY PRN MISC Per rx protocol 07/09/17 08:45 08/08/17 08:44 Vancomycin/Sodium Chloride 250 ml @ 166.667 mls/hr Q24H IVPB 07/11/17 13:30 07/16/17 13:29 07/12/17 13:42 Gene Gottlieb MD Jul 13, 2017 10:34
[2017-07-13] MEDS: Vancomycin 750mg/NS 250ml IVPB SCH (13:30)
--- NOTE | 2017-07-13 14:23 | General Progress Note ---
Assessment/Plan Problem List: (1) Diabetes mellitus, type II ICD Codes: E11.9 - Type 2 diabetes mellitus without complications SNOMED: 46643967 (2) Renal insufficiency ICD Codes: N28.9 - Disorder of kidney and ureter, unspecified SNOMED: 823795700, 357717658 (3) Hyperkalemia ICD Codes: E87.5 - Hyperkalemia SNOMED: 28450306, 766579868 (4) Altered mental status ICD Codes: R41.82 - Altered mental status, unspecified SNOMED: 774375989 (5) HTN (hypertension) ICD Codes: I10 - HTN (hypertension) SNOMED: 53120270 (6) Cellulitis of leg, left ICD Codes: L03.116 - Cellulitis of left lower limb SNOMED: 076200109 (7) Anemia ICD Codes: D64.9 - Anemia SNOMED: 797034044 (8) Cellulitis ICD Codes: L03.90 - Cellulitis, unspecified SNOMED: 254244387 (9) Peripheral neuropathy ICD Codes: G62.9 - Peripheral neuropathy SNOMED: 61092919 (10) Renal failure ICD Codes: N19 - Unspecified kidney failure SNOMED: 77693174 (11) Diabetic foot ulcer ICD Codes: E11.621 - Type 2 diabetes mellitus with foot ulcer; L97.509 - Non- pressure chronic ulcer oth prt unsp foot w unsp severity SNOMED: 918328091 (12) Diabetic foot ulcer with osteomyelitis ICD Codes: E11.621 - Diabetic foot ulcer with osteomyelitis SNOMED: 25361787 (13) Diabetic foot ulcer with osteomyelitis ICD Codes: E11.621 - Type 2 diabetes mellitus with foot ulcer SNOMED: 00894138 (14) Pain in right foot ICD Codes: M79.671 - Pain in right foot SNOMED: 91781989 (15) Left leg cellulitis ICD Codes: L03.116 - Cellulitis of left lower limb SNOMED: 984638013 (16) DM (17) chronic osteomyelitis Assessment/Plan encephalopathy due to [facility] -risperdal 1mg qhs -provided ro Subjective Date patient seen: Jul 13, 2017 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: Reports: anxiety, depressed, emotional problems Allergies: Coded Allergies: No Known Allergies (Unverified , 01/12/13) Subjective the pt is confused about his medication and dosage, the pt is unable to to process the information was given to her. the pt is concrete Objective Last 24 Hour Vital Signs Date Time Temp Pulse Resp B/P (MAP) Pulse Ox O2 Delivery O2 Flow Rate FiO2 07/13/17 13:00 186/83 07/13/17 11:59 97.6 72 23 181/82 100 Room Air 97.6 07/13/17 09:06 72 162/67 07/13/17 09:06 72 162/67 07/13/17 08:00 97.7 72 21 162/67 99 Room Air 97.7 07/13/17 04:00 98.0 71 20 113/76 97 98.0 07/13/17 00:00 97.1 74 20 166/61 98 97.1 07/12/17 21:00 70 171/75 07/12/17 21:00 70 171/75 07/12/17 20:00 Room Air 07/12/17 20:00 98.2 70 20 171/75 98 98.2 07/12/17 16:00 97.7 73 18 141/81 100 97.7 Intake and Output 07/12/17 07/13/17 19:00 07:00 Intake Total 110 ml Balance 110 ml IV Total 110 ml Laboratory Tests 07/13/17 06:00: White Blood Count 7.9, Red Blood Count 3.57L, Hemoglobin 8.5L, Hematocrit 26.9L , Mean Corpuscular Volume 75L, Mean Corpuscular Hemoglobin 23.8L, Mean Corpuscular Hemoglobin Concent 31.6L, Red Cell Distribution Width 13.4, Platelet Count 193, Mean Platelet Volume 9.9, Neutrophils (%) (Auto) 59.3, Lymphocytes (%) (Auto) 25.7, Monocytes (%) (Auto) 10.7H, Eosinophils (%) (Auto) 3.0, Basophils (%) (Auto) 1.4, Sodium Level 139, Potassium Level 4.5, Chloride Level 106, Carbon Dioxide Level 28, Anion Gap 5, Blood Urea Nitrogen 45H, Creatinine 1.5H, Estimat Glomerular Filtration Rate 41.7, Glucose Level 117H, Calcium Level 8.3L, Troponin I 0.000, Pro-B-Type Natriuretic Peptide 326H 07/13/17 12:35: Vancomycin Level Trough 16.2H Height (Feet): 5 Height (Inches): 4.00 Weight (Pounds): 204 General Appearance: no apparent distress, alert Shayna Thorpe M.D. Jul 13, 2017 14:23
[2017-07-13] MEDS ORDERED: Vancomycin 500mg/D5W 110ml IVPB SCH ×2 (15:00)
--- NOTE | 2017-07-13 15:15 | Cardiac Electrophysiology PN ---
Assessment/Plan Assessment/Plan 1. Accelerated hypertension. Better on Norvasc 5 mg b.i.d. and Coreg 6.25 mg b.i.d. Echocardiogram EF 65% 2. Diabetes. 3. Foot ulcer, on vancomycin and ceftriaxone for further evaluation by Infectious Disease. 4. Dementia, on Risperdal. Subjective Subjective No chest pain or SOB. in NAD Objective Last 24 Hour Vital Signs Date Time Temp Pulse Resp B/P (MAP) Pulse Ox O2 Delivery O2 Flow Rate FiO2 07/13/17 15:00 127/57 07/13/17 13:00 186/83 07/13/17 11:59 97.6 72 23 181/82 100 Room Air 97.6 07/13/17 09:06 72 162/67 07/13/17 09:06 72 162/67 07/13/17 08:00 97.7 72 21 162/67 99 Room Air 97.7 07/13/17 04:00 98.0 71 20 113/76 97 98.0 07/13/17 00:00 97.1 74 20 166/61 98 97.1 07/12/17 21:00 70 171/75 07/12/17 21:00 70 171/75 07/12/17 20:00 Room Air 07/12/17 20:00 98.2 70 20 171/75 98 98.2 07/12/17 16:00 97.7 73 18 141/81 100 97.7 Intake and Output 07/12/17 07/13/17 19:00 07:00 Intake Total 110 ml Balance 110 ml IV Total 110 ml Laboratory Tests Test 07/13/17 06:00 07/13/17 12:35 White Blood Count 7.9 K/UL (4.8-10.8) Red Blood Count 3.57 M/UL (4.20-5.40) L Hemoglobin 8.5 G/DL (12.0-16.0) L Hematocrit 26.9 % (37.0-47.0) L Mean Corpuscular Volume 75 FL (80-99) L Mean Corpuscular Hemoglobin 23.8 PG (27.0-31.0) L Mean Corpuscular Hemoglobin Concent 31.6 G/DL (32.0-36.0) L Red Cell Distribution Width 13.4 % (11.6-14.8) Platelet Count 193 K/UL (150-450) Mean Platelet Volume 9.9 FL (6.5-10.1) Neutrophils (%) (Auto) 59.3 % (45.0-75.0) Lymphocytes (%) (Auto) 25.7 % (20.0-45.0) Monocytes (%) (Auto) 10.7 % (1.0-10.0) H Eosinophils (%) (Auto) 3.0 % (0.0-3.0) Basophils (%) (Auto) 1.4 % (0.0-2.0) Sodium Level 139 MMOL/L (136-145) Potassium Level 4.5 MMOL/L (3.5-5.1) Chloride Level 106 MMOL/L (98-107) Carbon Dioxide Level 28 MMOL/L (21-32) Anion Gap 5 mmol/L (5-15) Blood Urea Nitrogen 45 mg/dL (7-18) H Creatinine 1.5 MG/DL (0.55-1.30) H Estimat Glomerular Filtration Rate 41.7 mL/min (>60) Glucose Level 117 MG/DL (74-106) H Calcium Level 8.3 MG/DL (8.5-10.1) L Troponin I 0.000 ng/mL (0.000-0.056) Pro-B-Type Natriuretic Peptide 326 pg/mL (0-125) H Vancomycin Level Trough 16.2 ug/mL (5.0-12.0) H Microbiology Date/Time Source Procedure Growth Status 07/11/17 19:00 Urine,Clean Catch Urine Culture - Preliminary Resulted Objective HEAD AND NECK: Showed no JVD or carotid bruits. LUNGS: Clear. CARDIOVASCULAR: Shows regular S1 and S2 with no gallop or murmur. ABDOMEN: Soft. EXTREMITIES: 1+ pitting edema that was also in the left leg. Talon Jorge MD Jul 13, 2017 15:15
[2017-07-13] MEDS ORDERED: NORVASC5 MG ORAL (16:17)
[2017-07-13] MEDS ORDERED: RISPERDAL1 MG ORAL (16:17)
[2017-07-13] MEDS ORDERED: COREG3.125 MG ORAL (16:17)
[2017-07-13] MEDS ORDERED: CEPHALEXIN500 MG ORAL (16:18)
--- NOTE | 2017-07-13 16:19 | Pulmonology Progress Note ---
Assessment/Plan Problems: (1) Cellulitis of leg, left (2) HTN (hypertension) (3) Hyperkalemia (4) Diabetes mellitus, type II Assessment/Plan improving continue abx, switch to oral upon discharge wound care, change dressing as protocol check electrolytes, bun/creatinine stable now symptoamtic treatment bun/creatinine stabnle, hold lisinopril and HCT for BP use Norvasc and prn clonidine, bp btter controlled Subjective ROS Limited/Unobtainable: No Constitutional: Reports: no symptoms HEENT: Repors: no symptoms Respiratory: Reports: no symptoms Allergies: Coded Allergies: No Known Allergies (Unverified , 01/12/13) Objective Last 24 Hour Vital Signs Date Time Temp Pulse Resp B/P (MAP) Pulse Ox O2 Delivery O2 Flow Rate FiO2 07/13/17 16:00 97.9 66 20 161/71 99 Room Air 97.9 07/13/17 15:00 127/57 07/13/17 13:00 186/83 07/13/17 11:59 97.6 72 23 181/82 100 Room Air 97.6 07/13/17 09:06 72 162/67 07/13/17 09:06 72 162/67 07/13/17 08:00 97.7 72 21 162/67 99 Room Air 97.7 07/13/17 04:00 98.0 71 20 113/76 97 98.0 07/13/17 00:00 97.1 74 20 166/61 98 97.1 07/12/17 21:00 70 171/75 07/12/17 21:00 70 171/75 07/12/17 20:00 Room Air 07/12/17 20:00 98.2 70 20 171/75 98 98.2 Intake and Output 07/12/17 07/13/17 19:00 07:00 Intake Total 110 ml Balance 110 ml IV Total 110 ml Objective General Appearance: cachetic HEENT: normocephalic, atraumatic Respiratory/Chest: chest wall non-tender, lungs clear Cardiovascular: normal rate, regular rhythm Abdomen: normal bowel sounds, soft, non tender, non distended Genitourinary: normal external genitalia Extremities: + rash Microbiology Date/Time Source Procedure Growth Status 07/11/17 19:00 Urine,Clean Catch Urine Culture - Preliminary Resulted Laboratory Tests 07/13/17 06:00: White Blood Count 7.9, Red Blood Count 3.57L, Hemoglobin 8.5L, Hematocrit 26.9L , Mean Corpuscular Volume 75L, Mean Corpuscular Hemoglobin 23.8L, Mean Corpuscular Hemoglobin Concent 31.6L, Red Cell Distribution Width 13.4, Platelet Count 193, Mean Platelet Volume 9.9, Neutrophils (%) (Auto) 59.3, Lymphocytes (%) (Auto) 25.7, Monocytes (%) (Auto) 10.7H, Eosinophils (%) (Auto) 3.0, Basophils (%) (Auto) 1.4, Sodium Level 139, Potassium Level 4.5, Chloride Level 106, Carbon Dioxide Level 28, Anion Gap 5, Blood Urea Nitrogen 45H, Creatinine 1.5H, Estimat Glomerular Filtration Rate 41.7, Glucose Level 117H, Calcium Level 8.3L, Troponin I 0.000, Pro-B-Type Natriuretic Peptide 326H 07/13/17 12:35: Vancomycin Level Trough 16.2H Current Medications Medications (Trade) Dose Ordered Sig/Alfonso Route PRN Reason Start Time Stop Time Status Last Admin Dose Admin Acetaminophen (Tylenol) 650 mg Q4H PRN ORAL Mild Pain/Temp > 100.5 07/09/17 08:45 08/08/17 08:44 Acetaminophen/ Hydrocodone Bitart (Harper 5/325) 1 tab Q6H PRN ORAL PAIN 4-10 07/09/17 08:45 07/16/17 08:44 Amlodipine Besylate (Norvasc) 5 mg EVERY 12 HOURS ORAL 07/11/17 21:00 08/10/17 20:59 07/13/17 09:06 Carvedilol (Coreg) 3.125 mg EVERY 12 HOURS ORAL 07/09/17 09:00 08/08/17 08:59 07/13/17 09:06 Ceftriaxone Sodium 1 gm/ Dextrose 110 ml @ 220 mls/hr Q24H IVPB 07/09/17 23:00 07/16/17 22:59 07/12/17 22:09 Clonidine HCl (Catapres Tab) 0.1 mg Q4H PRN ORAL sbp more than 160 07/11/17 15:45 08/10/17 15:44 07/13/17 13:00 Dextrose (Dextrose 50%) 25 ml STAT PRN IV Hypoglycemia 07/09/17 08:45 08/08/17 08:44 Dextrose (Dextrose 50%) 50 ml STAT PRN IV Hypoglycemia 07/09/17 08:45 08/08/17 08:44 Glipizide (Glucotrol) 10 mg BIAC ORAL 07/09/17 16:30 08/08/17 16:29 07/13/17 06:10 Heparin Sodium (Porcine) (Heparin 5000 units/ml) 5,000 units EVERY 8 HOURS SUBQ 07/09/17 14:00 08/08/17 13:59 07/13/17 06:16 Insulin Aspart (NovoLOG) BEFORE MEALS AND HS SUBQ 07/09/17 11:30 08/08/17 11:29 07/11/17 11:45 Ondansetron HCl (Zofran) 4 mg Q4H PRN IVP Nausea & Vomiting 07/09/17 08:45 08/08/17 08:44 Risperidone (RisperDAL) 1 mg BEDTIME ORAL 07/12/17 21:00 08/11/17 20:59 Vancomycin HCl (Vanco rx to dose) 1 ea DAILY PRN MISC Per rx protocol 07/09/17 08:45 08/08/17 08:44 Vancomycin HCl 500 mg/Dextrose 110 ml @ 110 mls/hr Q24H IVPB 07/13/17 15:00 07/18/17 14:59 07/13/17 14:56 Dong Ambriz MD Jul 13, 2017 16:19
[2017-07-13] MEDS ORDERED: Tubing IV Secondary IV ONE (18:10)
[2017-07-13] MEDS ORDERED: NS 275ml ONE (18:10)
--- NOTE | 2017-07-13 18:17 | Internal Med Progress Note ---
Subjective Date of Service: Jul 13, 2017 Physician Name Kelle Weinstein Attending Physician Cirilo Blancas MD Current Medications Medications (Trade) Dose Ordered Sig/Alfonso Route PRN Reason Start Time Stop Time Status Last Admin Dose Admin Acetaminophen (Tylenol) 650 mg Q4H PRN ORAL Mild Pain/Temp > 100.5 07/09/17 08:45 08/08/17 08:44 Acetaminophen/ Hydrocodone Bitart (Flint 5/325) 1 tab Q6H PRN ORAL PAIN 4-07/09/17 08:45 07/16/17 08:44 Amlodipine Besylate (Norvasc) 5 mg EVERY 12 HOURS ORAL 07/11/17 21:00 08/10/17 20:59 07/13/17 09:06 Carvedilol (Coreg) 3.125 mg EVERY 12 HOURS ORAL 07/09/17 09:00 08/08/17 08:59 07/13/17 09:06 Ceftriaxone Sodium 1 gm/ Dextrose 110 ml @ 220 mls/hr Q24H IVPB 07/09/17 23:00 07/16/17 22:59 07/12/17 22:09 Clonidine HCl (Catapres Tab) 0.1 mg Q4H PRN ORAL sbp more than 160 07/11/17 15:45 08/10/17 15:44 07/13/17 13:00 Dextrose (Dextrose 50%) 25 ml STAT PRN IV Hypoglycemia 07/09/17 08:45 08/08/17 08:44 Dextrose (Dextrose 50%) 50 ml STAT PRN IV Hypoglycemia 07/09/17 08:45 08/08/17 08:44 Glipizide (Glucotrol) 10 mg BIAC ORAL 07/09/17 16:30 08/08/17 16:29 07/13/17 06:10 Heparin Sodium (Porcine) (Heparin 5000 units/ml) 5,000 units EVERY 8 HOURS SUBQ 07/09/17 14:00 08/08/17 13:59 07/13/17 06:16 Insulin Aspart (NovoLOG) BEFORE MEALS AND HS SUBQ 07/09/17 11:30 08/08/17 11:29 07/13/17 17:22 Ondansetron HCl (Zofran) 4 mg Q4H PRN IVP Nausea & Vomiting 07/09/17 08:45 08/08/17 08:44 Risperidone (RisperDAL) 1 mg BEDTIME ORAL 07/12/17 21:00 08/11/17 20:59 Vancomycin HCl (Vanco rx to dose) 1 ea DAILY PRN MISC Per rx protocol 07/09/17 08:45 08/08/17 08:44 Vancomycin HCl 500 mg/Dextrose 110 ml @ 110 mls/hr Q24H IVPB 07/13/17 15:00 07/18/17 14:59 07/13/17 14:56 Allergies: Coded Allergies: No Known Allergies (Unverified , 01/12/13) ROS Limited/Unobtainable: No Constitutional: Reports: no symptoms HEENT: Reports: no symptoms Cardiovascular: Reports: no symptoms Respiratory: Reports: no symptoms Gastrointestinal/Abdominal: Reports: no symptoms Genitourinary: Reports: no symptoms 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: Reports: no symptoms Subjective 89 YO F admitted with cough and UTI. Now cellulitis left leg. Cover for Int [facility]-Dr Blancas. Objective Last Vital Signs Date Time Temp Pulse Resp B/P (MAP) Pulse Ox O2 Delivery O2 Flow Rate FiO2 07/13/17 16:00 97.9 66 20 161/71 99 Room Air 97.9 Laboratory Tests Test 07/13/17 06:00 07/13/17 12:35 White Blood Count 7.9 K/UL (4.8-10.8) Red Blood Count 3.57 M/UL (4.20-5.40) L Hemoglobin 8.5 G/DL (12.0-16.0) L Hematocrit 26.9 % (37.0-47.0) L Mean Corpuscular Volume 75 FL (80-99) L Mean Corpuscular Hemoglobin 23.8 PG (27.0-31.0) L Mean Corpuscular Hemoglobin Concent 31.6 G/DL (32.0-36.0) L Red Cell Distribution Width 13.4 % (11.6-14.8) Platelet Count 193 K/UL (150-450) Mean Platelet Volume 9.9 FL (6.5-10.1) Neutrophils (%) (Auto) 59.3 % (45.0-75.0) Lymphocytes (%) (Auto) 25.7 % (20.0-45.0) Monocytes (%) (Auto) 10.7 % (1.0-10.0) H Eosinophils (%) (Auto) 3.0 % (0.0-3.0) Basophils (%) (Auto) 1.4 % (0.0-2.0) Sodium Level 139 MMOL/L (136-145) Potassium Level 4.5 MMOL/L (3.5-5.1) Chloride Level 106 MMOL/L (98-107) Carbon Dioxide Level 28 MMOL/L (21-32) Anion Gap 5 mmol/L (5-15) Blood Urea Nitrogen 45 mg/dL (7-18) H Creatinine 1.5 MG/DL (0.55-1.30) H Estimat Glomerular Filtration Rate 41.7 mL/min (>60) Glucose Level 117 MG/DL (74-106) H Calcium Level 8.3 MG/DL (8.5-10.1) L Troponin I 0.000 ng/mL (0.000-0.056) Pro-B-Type Natriuretic Peptide 326 pg/mL (0-125) H Vancomycin Level Trough 16.2 ug/mL (5.0-12.0) H Microbiology Date/Time Source Procedure Growth Status 07/11/17 19:00 Urine,Clean Catch Urine Culture - Preliminary Resulted Intake and Output 07/12/17 07/13/17 19:00 07:00 Intake Total 110 ml Balance 110 ml IV Total 110 ml Objective General Appearance: WD/WN, no apparent distress, alert EENT: PERRL/EOMI, normal ENT inspection, TMs normal Neck: non-tender, normal alignment, supple Cardiovascular: normal peripheral pulses, normal rate, regular rhythm, no gallop/murmur, no JVD Respiratory/Chest: chest wall non-tender, lungs clear, normal breath sounds, no respiratory distress, no accessory muscle use Abdomen: normal bowel sounds, non tender, soft, no organomegaly, no mass Extremities: normal range of motion, non-tender Neurologic: car starter 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 normal, no motor/sensory deficits Skin: warm/dry, other - erythema left leg Assessment/Plan Problem List: (1) Cellulitis of leg, left Assessment & Plan: Continue ceftriaxone and vanco (2) Altered mental status (3) Diabetes mellitus, type II Assessment & Plan: Continue novolog and glipizide (4) HTN (hypertension) Assessment & Plan: Continue coreg and lisinopril Status: progressing Assessment/Plan Discharge planning KELLE WEINSTEIN Jul 13, 2017 18:17
--- NOTE | 2017-07-13 21:23 | Cardiology Report ---
APPROVED REPORT EKG Measurement Heart [id number] Normal sinus rhythm Septal infarct, age undetermined Abnormal ECG
--- NOTE | 2017-07-14 00:08 | Diagnostic Imaging Report ---
APPROVED REPORT CPT Code: 77723 Present Symptoms Lower Extremity Pain: Bilateral BILATERAL: Imaging reveals a patent deep venous system bilaterally. There is no evidence of thrombus within the femoral, popliteal or tibial segments. The greater saphenous veins are also within normal limits. Doppler indicates normal spontaneous flow within these segments.
--- NOTE | 2017-07-14 13:54 | Discharge Summary ---
Discharge Summary Discharge Summary Discharge Summary DATE OF ADMISSION: 07/08/2017 DATE OF DISCHARGE: 07/13/2017 ATTENDING: Dr. Cirilo Blancas CONSULTANTS: Dr. Dong Gottlieb BRIEF HOSPITAL COURSE: Patient is a 71-year-old -[place] female, who presented with chief complaint of pain and swelling of the left leg. Symptoms started 3-4 months ago. Patient had cellulitis of the left leg and had a home health at that time. She was treated with oral antibiotics. 2 weeks prior to admission, left leg began to swell with redness and swelling over the left calf, she was given oral Keflex by PMD. Medication caused her to be nauseated and she was noted to be confused. She was transported to [facility] room. On evaluation at ED, WBC was 15.4, hemoglobin 11.5, hematocrit 36.6, glucose 393 , potassium 5.4, sodium 135 BUN 29, creatinine 1.4. She was admitted for evaluation of altered mental status possibly secondary to cellulitis, as patient may be septic. She was started empirically on antibiotics vancomycin and Rocephin. Blood sugars were elevated and was placed on NovoLog sliding scale. She was given lisinopril, Norvasc 5 mg twice a day and Coreg was increased to 6.25 mg twice a day for blood pressure control. Echocardiogram showed ejection fraction of 65-70%, normal left ventricular size and function and wall motion. There was no aortic regurgitation, mild mitral regurgitation, RVSP 31 consistent with mild pulmonary hypertension. She had waxing and waning of consciousness and was confused. She was given low-dose Risperdal 1 mg daily at bedtime. There was improvement in her legs, she was given wound/skin care and antibiotics were switched to oral upon discharge. She was eventually discharged home with home health FINAL DIAGNOSES: Acute toxic metabolic encephalopathy, present on admission Cellulitis of the left leg Diabetes mellitus2 Accelerated hypertension Dementia Hyperkalemia DISPOSITION: Patient was discharged home with home health DISCHARGE MEDICATIONS: Refer to Discharge Medication List. DISCHARGE INSTRUCTIONS: Follow up with PCP in a week. I have been assigned to dictate discharge summary on this account, and I was not involved in the patient's management. Carolyn Patterson NP Jul 14, 2017 13:54
== END 2017-07-13 19:04 | disposition home health service (06) | DRG 602 ==
LOC: EMR 23:25 → 4E 23:59 → EDBEDREQ 07-09 01:28 → SDSOVERFLO 07-11 19:57 → 4E 07-11 20:00
DX: L03.116 Cellulitis of left lower limb (principal); G92 Toxic encephalopathy; M86.672 Other chronic osteomyelitis, left ankle and foot; I10 Essential (primary) hypertension; R41.82 Altered mental status, unspecified; E11.621 Type 2 diabetes mellitus with foot ulcer; E87.5 Hyperkalemia; G62.9 Polyneuropathy, unspecified; F03.90 Unspecified dementia, unspecified severity, without behavioral disturbance, psychotic disturbance, mood disturbance, and anxiety; I34.0 Nonrheumatic mitral (valve) insufficiency; I27.20 Pulmonary hypertension, unspecified; Z89.421 Acquired absence of other right toe(s)
CPT/HCPCS: 36415; 80048; 80053; 80202; 81001; 81003; 82550; 82962; 83036; 83605; 83735; 83880; 84100; 84133; 84300; 84484; 84550; 85025; 85610; 85651; 85730; 86140; 87040; 87086; 89050; 93005; 93306; 93970; 99285; J1815; J3490

== ENCOUNTER 2018-02-26 14:27 | Emergency (ER) | payer MEDICARE, OTHER ==
[~2018-02-26] VITALS: Ht 162.6 cm; Wt 89.8 kg
[~2018-02-26 14:27] MED LIST changes: +COREG3.125 MG ORAL; +GLIPIZIDE5 MG ORAL; +KEFLEX500 MG ORAL; +LISINOPRIL-HCT1 EACH ORAL; +NORVASC5 MG ORAL; +RISPERDAL1 MG ORAL
[2018-02-26] MEDS ORDERED: EXFORGE HCT 101 EAC1 ORAL (15:07)
[2018-02-26 15:10] VITALS: BP 166/77
[2018-02-26] MEDS ORDERED: Vancomycin 1.5gm/D5W 250ml 250 ML IVPB ONE (15:45)
[2018-02-26 18:27] VITALS: BP 166/77
--- NOTE | 2018-02-26 19:57 | Emergency Room Report ---
History of Present Illness General Chief Complaint: Skin Rash/Abscess Source: Patient Present Illness HPI 72-year-old female patient presents to ER complaining of infection on right lower leg. Reports was seen by her primary care provider earlier today and told to the ER for further imaging and evaluation. reports infection is been present for several months, previously treated with antibiotics. States infection has persisted. Reports history of diabetes. Denies fever, chest pain , shortness breath. Denies pain with ambulation. Allergies: Coded Allergies: No Known Allergies (Unverified , 02/27/18) Patient History Past Medical History: see triage record Reviewed Nursing Documentation: PMH: Agreed; PSxH: Agreed Nursing Documentation-PMH Past Medical History: No History, Except For Hx Cardiac Problems: No Hx Hypertension: Yes Hx Asthma: No Hx Diabetes: Yes Hx Cancer: No Hx Gastrointestinal Problems: No Hx Neurological Problems: No Hx Peripheral Neuropathy: Yes - S/P RIGHT FOOT SURGERY 02/2013 Review of Systems All Other Systems: negative except mentioned in HPI Physical Exam Vital Signs Date Time Temp Pulse Resp B/P (MAP) Pulse Ox O2 Delivery O2 Flow Rate FiO2 02/26/18 14:59 98.2 86 18 166/77 98 Room Air Sp02 EP Interpretation: reviewed, normal General Appearance: well appearing, no apparent distress, alert, GCS 15, non- toxic Head: normocephalic, atraumatic Eyes: bilateral eye normal inspection, bilateral eye PERRL ENT: hearing grossly normal, normal pharynx, no angioedema, normal voice, uvula midline, moist mucus membranes Neck: full range of motion Respiratory: lungs clear, normal breath sounds, no rhonchi, no respiratory distress, no accessory muscle use, no wheezing, speaking full sentences Cardiovascular #1: regular rate, rhythm, no edema Cardiovascular #2: 2+ dorsalis pedis (R), 2+ dorsalis pedis (L) Musculoskeletal: back normal, digits/nails normal, gait/station normal, normal range of motion, non-tender, Amena's Sign negative Neurologic: alert, oriented x3, responsive, motor strength/tone normal, sensory intact Psychiatric: mood/affect normal Skin: other - erythema and edema consistent with cellulitis, stasis ulcers with drainage, no red streaking, no crepitus Medical Decision Making PA Attestation Dr. Khalil is my supervising Physician whom patient management has been discussed with. Diagnostic Impression: Primary Impression: Rash and other nonspecific skin eruption Additional Impression: Abscess ER Course Pt. presents to the ED c/o infection right lower leg. Ddx considered but are not limited to cellulitis, abscess, DVT, Osteomyelitis. negative Homans sign, denies calf pain, low suspicion for DVT. Vital signs: are WNL, pt. is afebrile ER COURSE: Spoken with the patient primary care provider, requesting ultrasound to rule out DVT and IV antibiotics, requesting admission patient. Discuss plan with patient, patient states that she would like to be admitted tomorrow. Informed patient we are planning to admit her today, she would like to leave and come back tomorrow, informed patient she will need to sign out AMA. Patient signed out AMA. Informed of risks of leaving today. Patient left prior to treatment with labs, imaging, antibiotics. - Please note that this Emergency Department Report was dictated using [employer] systems repairer technology software, occasionally this can lead to erroneous entry secondary to interpretation by the dictation equipment. Last Vital Signs Date Time Temp Pulse Resp B/P (MAP) Pulse Ox O2 Delivery O2 Flow Rate FiO2 02/26/18 18:27 98.2 75 18 166/77 98 Room Air Disposition: AGAINST MEDICAL ADVICE Condition: Serious Referrals: Cirilo Blancas MD (PCP) Juice Allen Feb 26, 2018 19:57
[2018-02-27] MEDS ORDERED: GLIPIZIDE10 MG PO (09:36)
[2018-02-27] MEDS ORDERED: ASPIR 8181 MG ORAL (09:36)
== END 2018-02-26 16:00 | disposition left against medical advice (07) ==
LOC: EMR 15:49
DX: L02.415 Cutaneous abscess of right lower limb (principal); I10 Essential (primary) hypertension; E11.9 Type 2 diabetes mellitus without complications
CPT/HCPCS: 96365; 96366; 99284

== ENCOUNTER 2018-02-27 09:20 | Inpatient (IN) | payer MEDICARE, OTHER ==
[2018-02-27] VITALS (7 sets, daily range): BP systolic 153–179; BP diastolic 54–108
[~2018-02-27] VITALS: Ht 162.6 cm; Wt 94.3 kg
[~2018-02-27 09:20] MED LIST changes: +EXFORGE HCT 101 EAC1 ORAL
[2018-02-27] MEDS ORDERED: GLIPIZIDE10 MG PO (09:36)
[2018-02-27] MEDS ORDERED: ASPIR 8181 MG ORAL (09:36)
--- NOTE | 2018-02-27 09:46 | Emergency Room Report ---
History of Present Illness General Chief Complaint: Lower Extremity Injury Source: Patient Present Illness HPI Patient is a 72-year-old female presented after increased lower external any pain.Increased lower extremity pain. Patient had prior hospitalization for similar symptoms. She was noted to have increased drainage from her right lower extremity. Patient recently been seen in the hospital for similar symptoms. She had been noted have prior history of CHF. She denies any current shortness of breath.She prior history of chronic nonhealing wounds. Allergies: Coded Allergies: No Known Allergies (Unverified , 02/27/18) Patient History Past Medical History: see triage record Now: No Reviewed Nursing Documentation: PMH: Agreed; PSxH: Agreed Nursing Documentation-PMH Past Medical History: No History, Except For Hx Cardiac Problems: No Hx Hypertension: Yes Hx Asthma: No Hx Diabetes: Yes Hx Cancer: No Hx Gastrointestinal Problems: No Hx Neurological Problems: No Hx Peripheral Neuropathy: Yes - S/P RIGHT FOOT SURGERY 02/2013 Review of Systems All Other Systems: negative except mentioned in HPI Physical Exam Vital Signs Date Time Temp Pulse Resp B/P (MAP) Pulse Ox O2 Delivery O2 Flow Rate FiO2 02/27/18 09:23 97.5 75 14 165/67 97 Room Air Sp02 EP Interpretation: reviewed, normal General Appearance: normal inspection, well appearing, no apparent distress, alert, GCS 15, non-toxic Head: atraumatic ENT: normal ENT inspection, hearing grossly normal, normal voice Neck: normal inspection, full range of motion, supple, no bony tend Respiratory: normal inspection, lungs clear, normal breath sounds, no respiratory distress, no retraction, no wheezing Cardiovascular #1: regular rate, rhythm, no edema Gastrointestinal: normal inspection, normal bowel sounds, non tender, soft, no guarding, no hernia Genitourinary: no CVA tenderness Musculoskeletal: normal inspection, back normal, normal range of motion Neurologic: normal inspection, alert, responsive, speech normal Psychiatric: normal inspection, judgement/insight normal, mood/affect normal Skin: no rash, other - erythema and warmth to right lower extremity Medical Decision Making Diagnostic Impression: Primary Impression: Cellulitis of right leg ER Course Patient presented for right lower extremity pain. Differential diagnosis included but was not limited to fracture, contusion, renal stone, vascular insufficiency, aortic aneurysm, cellulitis.Because of complexity of patient's case laboratory testing and imaging studies were ordered. The patient was noted to have some evidence of the erythema and swelling to the right lower extremity. Given the patient's comorbidities patient will be admitted to a telemetry floor for further monitoring and IV antibiotics.Dr. Cirilo Blancas was contacted for inpatient management Laboratory Tests Test 03/02/18 05:10 03/02/18 10:10 White Blood Count 10.3 K/UL (4.8-10.8) Red Blood Count 4.21 M/UL (4.20-5.40) Hemoglobin 9.4 G/DL (12.0-16.0) L Hematocrit 30.9 % (37.0-47.0) L Mean Corpuscular Volume 73 FL (80-99) L Mean Corpuscular Hemoglobin 22.4 PG (27.0-31.0) L Mean Corpuscular Hemoglobin Concent 30.5 G/DL (32.0-36.0) L Red Cell Distribution Width 12.4 % (11.6-14.8) Platelet Count 232 K/UL (150-450) Mean Platelet Volume 9.4 FL (6.5-10.1) Neutrophils (%) (Auto) 68.5 % (45.0-75.0) Lymphocytes (%) (Auto) 18.2 % (20.0-45.0) L Monocytes (%) (Auto) 9.0 % (1.0-10.0) Eosinophils (%) (Auto) 3.4 % (0.0-3.0) H Basophils (%) (Auto) 0.9 % (0.0-2.0) Sodium Level 136 MMOL/L (136-145) Potassium Level 4.7 MMOL/L (3.5-5.1) Chloride Level 101 MMOL/L (98-107) Carbon Dioxide Level 28 MMOL/L (21-32) Anion Gap 7 mmol/L (5-15) Blood Urea Nitrogen 30 mg/dL (7-18) H Creatinine 1.4 MG/DL (0.55-1.30) H Estimate Glomerular Filtration Rate 45.1 mL/min (>60) Glucose Level 223 MG/DL (74-106) #H Calcium Level 8.8 MG/DL (8.5-10.1) Vancomycin Level Trough 13.8 ug/mL (5.0-12.0) H Last Vital Signs Date Time Temp Pulse Resp B/P (MAP) Pulse Ox O2 Delivery O2 Flow Rate FiO2 02/27/18 09:23 97.5 75 14 165/67 97 Room Air Status: unchanged Disposition: ADMITTED INPATIENT Condition: Serious Scripts [ancef] No Conflict Check 1 GM IV Q8HR for 7 Days Prov: Dong Ambriz MD 03/02/18 Glipizide* (GLIPIZIDE*) 5 Mg Tablet 10 MG ORAL BIAC for 30 Days, TAB Prov: Dong Ambriz MD 03/02/18 [vancmycin iv ] No Conflict Check 1 GM IV DAILY PRN for 7 Days Prov: Dong Ambriz MD 03/02/18 Ricky Khan MD Feb 27, 2018 09:46
[2018-02-27] MEDS ORDERED: Vancomycin 1 GM in NS 275 ML IV ONE (10:15)
[2018-02-27] MEDS ORDERED: cefTRIAXone 2 GM in NS 110 ML IV SCH (10:15)
[2018-02-27 10:48] LABS: ANION GAP 7 mmol/L (5-15); BLOOD UREA NITROGEN 24 mg/dL (7-18); CALCIUM 8.4 MG/DL (8.5-10.1); CARBON DIOXIDE 29 MMOL/L (21-32); CHLORIDE 105 MMOL/L (98-107); CREATININE 1.3 MG/DL (0.55-1.30); POTASSIUM 4.5 MMOL/L (3.5-5.1); SODIUM 141 MMOL/L (136-145)
[2018-02-27 10:52] LABS: BASOPHILS % (AUTO) 1.3 % (0.0-2.0); EOSINOPHILS % (AUTO) 2.6 % (0.0-3.0); HEMATOCRIT 32.5 % (37.0-47.0); HEMOGLOBIN 9.9 G/DL (12.0-16.0); LYMPHOCYTES % (AUTO) 20.6 % (20.0-45.0); MEAN CORPUSCULAR VOLUME 73 FL (80-99); MONOCYTES % (AUTO) 9.5 % (1.0-10.0); NEUTROPHILS % (AUTO) 65.9 % (45.0-75.0); PLATELET COUNT 250 K/UL (150-450); RED BLOOD COUNT 4.44 M/UL (4.20-5.40); RED CELL DISTRIBUTION WIDTH 12.3 % (11.6-14.8); WHITE BLOOD COUNT 10.1 K/UL (4.8-10.8)
[2018-02-27 10:57] LABS: APPEARANCE,URINE SLIGHTLY CLOUDY; BILIRUBIN, URINE NEGATIVE (NEGATIVE); COLOR,URINE YELLOW; GLUCOSE, URINE (UA) 2+ (NEGATIVE); KETONES,URINE NEGATIVE (NEGATIVE); LEUKOCYTE ESTERASE ,URINE NEGATIVE (NEGATIVE); NITRITE,URINE NEGATIVE (NEGATIVE); PH,URINE 6 (4.5-8.0); PROTEIN,URINE 4+ (NEGATIVE); UROBILINOGEN,URINE NORMAL MG/DL (0.0-1.0)
[2018-02-27 11:02] LABS: ALANINE AMINOTRANSFERASE 15 U/L (12-78); ALBUMIN 2.5 G/DL (3.4-5.0); ALBUMIN/GLOBULIN RATIO 0.5 (1.0-2.7); ALKALINE PHOSPHATASE 104 U/L (46-116); ASPARTATE AMINO TRANSFERASE 21 U/L (15-37); BILIRUBIN,TOTAL 0.3 MG/DL (0.2-1.0); CREATINE KINASE 82 U/L (26-308)
--- NOTE | 2018-02-27 11:38 | Diagnostic Imaging Report ---
Indication: Shortness of breath Technique: One view of the chest Comparison: 12/05/2014 Findings: Inspiration is suboptimal. The lungs and pleural spaces are clear. The heart size is upper limits of normal. The aorta is calcified. Findings are unchanged Impression: No acute process
[2018-02-27 11:49] LABS: CKMB 1.8 NG/ML (0.0-3.6)
[2018-02-27] MEDS ORDERED: Bacitracin Oint UD TOPIC ONE (18:00)
[2018-02-27] MEDS ORDERED: Miralax 17gm pkt ORAL PRN (20:45)
[2018-02-27] MEDS ORDERED: Albuterol/Ipratropium 3ml neb HHN PRN (20:45)
[2018-02-27] MEDS ORDERED: Morphine Sulfate 2mg/ml Inj IVP PRN (20:45)
[2018-02-27] MEDS ORDERED: Nitroglycerin Subl 0.4mg tab SL PRN (20:45)
[2018-02-27] MEDS ORDERED: Cefepime 2gm ONE (21:32)
[2018-02-27] MEDS: NovoLOG Insulin Flexpen SUBQ SCH (21:45)
[2018-02-27] MEDS: Heparin 5000 units/ml inj SUBQ SCH (21:47)
[2018-02-27] MEDS ORDERED: Cefepime HCl 2 GM in D5W 110 ML IV SCH (22:00)
[2018-02-28 04:00] VITALS: BP 153/78
[2018-02-28] MEDS: NovoLOG Insulin Flexpen SUBQ SCH ×4 (06:29→21:48)
[2018-02-28 08:00] VITALS: BP 151/77
[2018-02-28 08:22] LABS: EOSINOPHILS % (AUTO) 3.1 % (0.0-3.0); HEMATOCRIT 29.8 % (37.0-47.0); HEMOGLOBIN 9.3 G/DL (12.0-16.0); MEAN CORPUSCULAR VOLUME 73 FL (80-99); NEUTROPHILS % (AUTO) 60.9 % (45.0-75.0); PLATELET COUNT 226 K/UL (150-450); RED BLOOD COUNT 4.08 M/UL (4.20-5.40); WHITE BLOOD COUNT 8.7 K/UL (4.8-10.8)
[2018-02-28] MEDS: Heparin 5000 units/ml inj SUBQ SCH ×3 (08:31→21:35)
[2018-02-28 08:48] LABS: ALANINE AMINOTRANSFERASE 16 U/L (12-78); ALBUMIN 2.3 G/DL (3.4-5.0); ALBUMIN/GLOBULIN RATIO 0.5 (1.0-2.7); ALKALINE PHOSPHATASE 101 U/L (46-116); ANION GAP 7 mmol/L (5-15); ASPARTATE AMINO TRANSFERASE 17 U/L (15-37); BILIRUBIN,TOTAL 0.3 MG/DL (0.2-1.0); BLOOD UREA NITROGEN 23 mg/dL (7-18); CALCIUM 9.1 MG/DL (8.5-10.1); CARBON DIOXIDE 28 MMOL/L (21-32); CHLORIDE 108 MMOL/L (98-107); CREATININE 1.2 MG/DL (0.55-1.30); POTASSIUM 4.5 MMOL/L (3.5-5.1); SODIUM 143 MMOL/L (136-145)
[2018-02-28] MEDS ORDERED: Vancomycin 1 GM in D5W 275 ML IVPB SCH (11:00)
--- NOTE | 2018-02-28 11:45 | Consultation ---
History of Present Illness General Date patient seen: Feb 28, 2018 Chief Complaint: Lower Extremity Injury Present Illness HPI 71 yo with pmhx of chronic left and right leg cellulitis, diabetes, HTN presents to [facility] with a complaint of acute pain and swelling worse than usual in her right leg. She has a history of multiple foot ulcers and osteomyelitis associated with poor healing. She has redness with swelling over the right calf. Allergies: Coded Allergies: No Known Allergies (Unverified , 02/27/18) Medication History Scheduled Amlodipine/Valsartan/Hctz (Exforge Hct 10-160-25 Mg Tab), 1 TAB ORAL DAILY, ( Reported) Aspirin* (Aspir 81*), 81 MG ORAL DAILY, (Reported) Glipizide (Glipizide), 20 MG PO BID, (Reported) Discontinued Medications Amlodipine Besylate (Norvasc), 5 MG ORAL EVERY 12 HOURS Discontinued Reason: Pt stopped taking med Carvedilol (Coreg), 3.125 MG ORAL EVERY 12 HOURS Discontinued Reason: Pt stopped taking med Cephalexin* (Keflex*), 500 MG ORAL EVERY 6 HOURS, (Reported) Discontinued Reason: Therapy completed Cephalexin* (Keflex*), 500 MG ORAL EVERY 12 HOURS Discontinued Reason: Therapy completed Lisinopril/Hydrochlorothiazide 10-12.5 Mg Tab (Lisinopril-Hctz 10-12.5 Mg Tab), 1 TAB ORAL DAILY, (Reported) Discontinued Reason: Pt stopped taking med Risperidone* (Risperdal*), 1 MG ORAL BEDTIME Discontinued Reason: Pt stopped taking med Patient History Healthcare decision maker Resuscitation status Full Code Advanced Directive on File Past Medical/Surgical History Past Medical/Surgical History: (1) Diabetes mellitus, type II (2) Diabetic foot ulcer (3) Peripheral neuropathy (4) Anemia (5) HTN (hypertension) Review of Systems All Other Systems: negative except mentioned in HPI Physical Exam General Appearance: WD/WN Lines, tubes and drains: peripheral HEENT: normocephalic, atraumatic Neck: non-tender, normal alignment Respiratory/Chest: chest wall non-tender, lungs clear Breasts: no masses Cardiovascular/Chest: normal peripheral pulses Abdomen: normal bowel sounds, non tender Genitourinary/Rectal: normal genital exam Extremities: normal range of motion Last 24 Hour Vital Signs Date Time Temp Pulse Resp B/P (MAP) Pulse Ox O2 Delivery O2 Flow Rate FiO2 02/28/18 09:47 Room Air 02/28/18 09:18 87 18 Room Air 21 02/28/18 08:00 97.7 79 19 151/77 (101) 95 02/28/18 04:00 74 02/28/18 04:00 98.8 74 18 153/78 (103) 97 02/27/18 23:30 Room Air 02/27/18 23:29 80 02/27/18 23:15 97.8 80 18 155/72 (99) 97 02/27/18 23:00 97.6 86 17 161/98 100 Room Air 02/27/18 18:47 97.5 87 17 165/108 100 Room Air 02/27/18 17:12 97.5 84 16 165/71 100 Room Air 02/27/18 15:43 97.5 74 15 179/63 100 Room Air 02/27/18 14:34 97.5 70 15 172/64 100 Room Air 02/27/18 12:10 97.5 80 15 153/62 98 Room Air Intake and Output 02/27/18 02/28/18 19:00 07:00 Intake Total 385 ml 210 ml Output Total 200 ml Balance 385 ml 10 ml Intake Oral 150 ml IV Total 385 ml Other 60 ml Output Urine Total 200 ml # Voids 1 Laboratory Tests Test 02/28/18 07:05 White Blood Count 8.7 K/UL (4.8-10.8) Red Blood Count 4.08 M/UL (4.20-5.40) L Hemoglobin 9.3 G/DL (12.0-16.0) L Hematocrit 29.8 % (37.0-47.0) L Mean Corpuscular Volume 73 FL (80-99) L Mean Corpuscular Hemoglobin 22.8 PG (27.0-31.0) L Mean Corpuscular Hemoglobin Concent 31.2 G/DL (32.0-36.0) L Red Cell Distribution Width 12.0 % (11.6-14.8) Platelet Count 226 K/UL (150-450) Mean Platelet Volume 9.1 FL (6.5-10.1) Neutrophils (%) (Auto) 60.9 % (45.0-75.0) Lymphocytes (%) (Auto) 23.0 % (20.0-45.0) Monocytes (%) (Auto) 12.0 % (1.0-10.0) H Eosinophils (%) (Auto) 3.1 % (0.0-3.0) H Basophils (%) (Auto) 1.0 % (0.0-2.0) Sodium Level 143 MMOL/L (136-145) Potassium Level 4.5 MMOL/L (3.5-5.1) Chloride Level 108 MMOL/L (98-107) H Carbon Dioxide Level 28 MMOL/L (21-32) Anion Gap 7 mmol/L (5-15) Blood Urea Nitrogen 23 mg/dL (7-18) H Creatinine 1.2 MG/DL (0.55-1.30) Estimat Glomerular Filtration Rate 53.8 mL/min (>60) Glucose Level 123 MG/DL (74-106) H Calcium Level 9.1 MG/DL (8.5-10.1) Total Bilirubin 0.3 MG/DL (0.2-1.0) Aspartate Amino Transf (AST/SGOT) 17 U/L (15-37) Alanine Aminotransferase (ALT/SGPT) 16 U/L (12-78) Alkaline Phosphatase 101 U/L (46-116) Total Protein 6.9 G/DL (6.4-8.2) Albumin 2.3 G/DL (3.4-5.0) L Globulin 4.6 g/dL Albumin/Globulin Ratio 0.5 (1.0-2.7) L Height (Feet): 5 Height (Inches): 4.00 Weight (Pounds): 208 Medications Current Medications Medications (Trade) Dose Ordered Sig/Alfonso Route PRN Reason Start Time Stop Time Status Last Admin Dose Admin Acetaminophen (Tylenol) 650 mg Q4H PRN ORAL fever (temp>100.5F) 02/27/18 20:45 03/29/18 20:44 Albuterol/ Ipratropium (Albuterol/ Ipratropium) 3 ml Q4H PRN HHN Shortness of Breath 02/27/18 20:45 03/04/18 20:44 Cefepime HCl 2 gm/ Dextrose 110 ml @ 220 mls/hr Q24H IV 02/27/18 22:00 03/06/18 21:59 02/27/18 21:46 Dextrose (Dextrose 50%) 25 ml Q30M PRN IV hypoglycemia 02/27/18 21:15 03/29/18 21:01 Dextrose (Dextrose 50%) 50 ml Q30M PRN IV hypoglycemia 02/27/18 21:15 03/29/18 21:14 Heparin Sodium (Porcine) (Heparin 5000 units/ml) 5,000 units EVERY 12 HOURS SUBQ 02/27/18 22:00 03/29/18 21:59 02/28/18 08:31 Insulin Aspart (NovoLOG) BEFORE MEALS AND HS SUBQ 02/27/18 21:00 03/29/18 20:59 02/27/18 21:45 Morphine Sulfate (Morphine Sulfate) 2 mg Q4H PRN IVP Moderate Pain (Pain Scale 4-6) 02/27/18 20:45 03/06/18 20:44 Nitroglycerin (Ntg) 0.4 mg Q5M PRN SL Prn Chest Pain 02/27/18 20:45 03/29/18 20:44 Ondansetron HCl (Zofran) 4 mg Q6H PRN IVP Nausea & Vomiting 02/27/18 20:45 03/29/18 20:44 Polyethylene Glycol (Miralax) 17 gm DAILYPRN PRN ORAL Constipation 02/27/18 20:45 03/29/18 20:44 Temazepam (Restoril) 15 mg HSPRN PRN ORAL Insomnia 02/27/18 20:45 03/06/18 20:44 Vancomycin HCl (Vanco rx to dose) 1 ea DAILY PRN MISC PER RX PROTOCOL 02/27/18 21:15 03/29/18 21:14 Vancomycin HCl 1 gm/Dextrose 275 ml @ 183.3 mls/ hr Q24H IVPB 02/28/18 11:00 03/05/18 10:59 Assessment/Plan Problem List: (1) Cellulitis of right leg ICD Codes: L03.115 - Cellulitis of right lower limb SNOMED: 381604338 (2) Abscess ICD Codes: L02.91 - Cutaneous abscess, unspecified SNOMED: 353628542, 679580240 (3) HTN (hypertension) ICD Codes: I10 - HTN (hypertension) SNOMED: 51062226 (4) Diabetes mellitus, type II ICD Codes: E11.9 - Type 2 diabetes mellitus without complications SNOMED: 90930402 (5) Peripheral neuropathy ICD Codes: G62.9 - Peripheral neuropathy SNOMED: 80572200 Assessment/Plan surgical evaluation wound culture IV abx wound care sliding scale diabetic diet Dong Ambriz MD Feb 28, 2018 11:45
[2018-02-28 12:00] VITALS: BP 189/89
--- NOTE | 2018-02-28 12:07 | Consultation ---
History of Present Illness General Date patient seen: Feb 28, 2018 Chief Complaint: Lower Extremity Injury Reason for Consultation: right leg cellulitis / wounds Present Illness HPI 72 year old [place] [facility] [place] of worsening right lower extremity pain, edema, drainage. States she has had bilateral lower extremity wounds and edema over the past few months. prior cellulitis. has been caring for them herself. recently noted right leg with significantly more pain and swelling. 2-3 days ago noted some pus from skin breakdown on anterior mid leg. Came for evaluation. Upon admission noted to have significant cellulitis of right distal leg. Surgery called to evaluate and assist with care/management. patient seen,chart reviewed, patient examined. Allergies: Coded Allergies: No Known Allergies (Unverified , 02/27/18) Medication History Scheduled Amlodipine/Valsartan/Hctz (Exforge Hct 10-160-25 Mg Tab), 1 TAB ORAL DAILY, ( Reported) Aspirin* (Aspir 81*), 81 MG ORAL DAILY, (Reported) Glipizide (Glipizide), 20 MG PO BID, (Reported) Discontinued Medications Amlodipine Besylate (Norvasc), 5 MG ORAL EVERY 12 HOURS Discontinued Reason: Pt stopped taking med Carvedilol (Coreg), 3.125 MG ORAL EVERY 12 HOURS Discontinued Reason: Pt stopped taking med Cephalexin* (Keflex*), 500 MG ORAL EVERY 6 HOURS, (Reported) Discontinued Reason: Therapy completed Cephalexin* (Keflex*), 500 MG ORAL EVERY 12 HOURS Discontinued Reason: Therapy completed Lisinopril/Hydrochlorothiazide 10-12.5 Mg Tab (Lisinopril-Hctz 10-12.5 Mg Tab), 1 TAB ORAL DAILY, (Reported) Discontinued Reason: Pt stopped taking med Risperidone* (Risperdal*), 1 MG ORAL BEDTIME Discontinued Reason: Pt stopped taking med Patient History History Provided By: Patient, Medical Record, PMD Healthcare decision maker Resuscitation status Full Code Advanced Directive on File Past Medical/Surgical History Past Medical/Surgical History: (1) HTN (hypertension) (2) Anemia (3) Peripheral neuropathy (4) Diabetic foot ulcer (5) Diabetic foot ulcer with osteomyelitis (6) Left leg cellulitis (7) Abscess (8) Diabetes mellitus, type II (9) Cellulitis of right leg Review of Systems All Other Systems: negative except mentioned in HPI Physical Exam General Appearance: no apparent distress, alert Lines, tubes and drains: peripheral HEENT: atraumatic, mucous membranes moist Neck: normal inspection Respiratory/Chest: normal breath sounds, no respiratory distress, no accessory muscle use Cardiovascular/Chest: normal rate, regular rhythm Abdomen: normal bowel sounds, non tender, soft, no organomegaly, no mass Extremities: inflammation, other Skin Exam: warm/dry, other Neurologic: alert, responsive Last 24 Hour Vital Signs Date Time Temp Pulse Resp B/P (MAP) Pulse Ox O2 Delivery O2 Flow Rate FiO2 02/28/18 09:47 Room Air 02/28/18 09:18 87 18 Room Air 21 02/28/18 08:00 97.7 79 19 151/77 (101) 95 02/28/18 04:00 74 02/28/18 04:00 98.8 74 18 153/78 (103) 97 02/27/18 23:30 Room Air 02/27/18 23:29 80 02/27/18 23:15 97.8 80 18 155/72 (99) 97 02/27/18 23:00 97.6 86 17 161/98 100 Room Air 02/27/18 18:47 97.5 87 17 165/108 100 Room Air 02/27/18 17:12 97.5 84 16 165/71 100 Room Air 02/27/18 15:43 97.5 74 15 179/63 100 Room Air 02/27/18 14:34 97.5 70 15 172/64 100 Room Air 02/27/18 12:10 97.5 80 15 153/62 98 Room Air Intake and Output 02/27/18 02/28/18 19:00 07:00 Intake Total 385 ml 210 ml Output Total 200 ml Balance 385 ml 10 ml Intake Oral 150 ml IV Total 385 ml Other 60 ml Output Urine Total 200 ml # Voids 1 Laboratory Tests Test 02/28/18 07:05 White Blood Count 8.7 K/UL (4.8-10.8) Red Blood Count 4.08 M/UL (4.20-5.40) L Hemoglobin 9.3 G/DL (12.0-16.0) L Hematocrit 29.8 % (37.0-47.0) L Mean Corpuscular Volume 73 FL (80-99) L Mean Corpuscular Hemoglobin 22.8 PG (27.0-31.0) L Mean Corpuscular Hemoglobin Concent 31.2 G/DL (32.0-36.0) L Red Cell Distribution Width 12.0 % (11.6-14.8) Platelet Count 226 K/UL (150-450) Mean Platelet Volume 9.1 FL (6.5-10.1) Neutrophils (%) (Auto) 60.9 % (45.0-75.0) Lymphocytes (%) (Auto) 23.0 % (20.0-45.0) Monocytes (%) (Auto) 12.0 % (1.0-10.0) H Eosinophils (%) (Auto) 3.1 % (0.0-3.0) H Basophils (%) (Auto) 1.0 % (0.0-2.0) Sodium Level 143 MMOL/L (136-145) Potassium Level 4.5 MMOL/L (3.5-5.1) Chloride Level 108 MMOL/L (98-107) H Carbon Dioxide Level 28 MMOL/L (21-32) Anion Gap 7 mmol/L (5-15) Blood Urea Nitrogen 23 mg/dL (7-18) H Creatinine 1.2 MG/DL (0.55-1.30) Estimat Glomerular Filtration Rate 53.8 mL/min (>60) Glucose Level 123 MG/DL (74-106) H Calcium Level 9.1 MG/DL (8.5-10.1) Total Bilirubin 0.3 MG/DL (0.2-1.0) Aspartate Amino Transf (AST/SGOT) 17 U/L (15-37) Alanine Aminotransferase (ALT/SGPT) 16 U/L (12-78) Alkaline Phosphatase 101 U/L (46-116) Total Protein 6.9 G/DL (6.4-8.2) Albumin 2.3 G/DL (3.4-5.0) L Globulin 4.6 g/dL Albumin/Globulin Ratio 0.5 (1.0-2.7) L Height (Feet): 5 Height (Inches): 4.00 Weight (Pounds): 208 Medications Current Medications Medications (Trade) Dose Ordered Sig/Alfonso Route PRN Reason Start Time Stop Time Status Last Admin Dose Admin Acetaminophen (Tylenol) 650 mg Q4H PRN ORAL fever (temp>100.5F) 02/27/18 20:45 03/29/18 20:44 Albuterol/ Ipratropium (Albuterol/ Ipratropium) 3 ml Q4H PRN HHN Shortness of Breath 02/27/18 20:45 03/04/18 20:44 Cefepime HCl 2 gm/ Dextrose 110 ml @ 220 mls/hr Q24H IV 02/27/18 22:00 03/06/18 21:59 02/27/18 21:46 Clonidine HCl (Catapres Tab) 0.1 mg Q4H PRN ORAL For High Blood Pressure 02/28/18 11:45 03/30/18 11:44 Dextrose (Dextrose 50%) 25 ml Q30M PRN IV hypoglycemia 02/27/18 21:15 03/29/18 21:01 Dextrose (Dextrose 50%) 50 ml Q30M PRN IV hypoglycemia 02/27/18 21:15 03/29/18 21:14 Heparin Sodium (Porcine) (Heparin 5000 units/ml) 5,000 units EVERY 12 HOURS SUBQ 02/27/18 22:00 03/29/18 21:59 02/28/18 08:31 Insulin Aspart (NovoLOG) BEFORE MEALS AND HS SUBQ 02/27/18 21:00 03/29/18 20:59 02/28/18 11:45 Morphine Sulfate (Morphine Sulfate) 2 mg Q4H PRN IVP Moderate Pain (Pain Scale 4-6) 02/27/18 20:45 03/06/18 20:44 Nitroglycerin (Ntg) 0.4 mg Q5M PRN SL Prn Chest Pain 02/27/18 20:45 03/29/18 20:44 Ondansetron HCl (Zofran) 4 mg Q6H PRN IVP Nausea & Vomiting 02/27/18 20:45 03/29/18 20:44 Polyethylene Glycol (Miralax) 17 gm DAILYPRN PRN ORAL Constipation 02/27/18 20:45 03/29/18 20:44 Temazepam (Restoril) 15 mg HSPRN PRN ORAL Insomnia 02/27/18 20:45 03/06/18 20:44 Vancomycin HCl (Vanco rx to dose) 1 ea DAILY PRN MISC PER RX PROTOCOL 02/27/18 21:15 03/29/18 21:14 Vancomycin HCl 1 gm/Dextrose 275 ml @ 183.3 mls/ hr Q24H IVPB 02/28/18 11:00 03/05/18 10:59 02/28/18 11:00 Assessment/Plan Problem List: (1) Cellulitis of right leg Assessment & Plan: 72F with acute on chronic right lower extremity wounds with acute cellulitis. afebrile, HD stable, labs okay on exam right lower extremity with warmth, edema, tenderness, and two moderate sized superficial wounds likely etiology chronic venous stasis / poor flow -keep bilateral lower extremities elevated -IV abx -heel protectors -wash wounds on right leg daily; apply skin protectant and therahoney or hydrogel; non adherent dressings; wrap with kerlix. -thank you will follow with recs ICD Codes: L03.115 - Cellulitis of right lower limb SNOMED: 855348211 Status: stable SlimMike Feb 28, 2018 12:07
--- NOTE | 2018-02-28 14:00 | Consultation ---
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 2-3 days [employer] noted some purulent drainage and skin breakdown from anterior mid leg. Of note, patient admitted here back on June 2017 for L leg cellulitis; treated with 5 days of Vancomycin and Ceftriaxone> 5 days of Bactrim and Keflex Allergies: Coded Allergies: No Known Allergies (Unverified , 02/27/18) Medication History Scheduled Amlodipine/Valsartan/Hctz (Exforge Hct 10-160-25 Mg Tab), 1 TAB ORAL DAILY, ( Reported) Aspirin* (Aspir 81*), 81 MG ORAL DAILY, (Reported) Glipizide (Glipizide), 20 MG PO BID, (Reported) Discontinued Medications Amlodipine Besylate (Norvasc), 5 MG ORAL EVERY 12 HOURS Discontinued Reason: Pt stopped taking med Carvedilol (Coreg), 3.125 MG ORAL EVERY 12 HOURS Discontinued Reason: Pt stopped taking med Cephalexin* (Keflex*), 500 MG ORAL EVERY 6 HOURS, (Reported) Discontinued Reason: Therapy completed Cephalexin* (Keflex*), 500 MG ORAL EVERY 12 HOURS Discontinued Reason: Therapy completed Lisinopril/Hydrochlorothiazide 10-12.5 Mg Tab (Lisinopril-Hctz 10-12.5 Mg Tab), 1 TAB ORAL DAILY, (Reported) Discontinued Reason: Pt stopped taking med Risperidone* (Risperdal*), 1 MG ORAL BEDTIME Discontinued Reason: Pt stopped taking med Patient History Healthcare decision maker Resuscitation status Full Code Advanced Directive on File Patient History Narrative Pmhx : as above Shx: reviewed Fhx: non contributory Physical Exam Physical Exam Narrative General Appearance: no apparent distress, alert Lines, tubes and drains: peripheral HEENT: atraumatic, mucous membranes moist Neck: normal inspection Respiratory/Chest: normal breath sounds, no respiratory distress, no accessory muscle use Cardiovascular/Chest: normal rate, regular rhythm Abdomen: normal bowel sounds, non tender, soft, no organomegaly, no mass Extremities: inflammation, other Skin Exam: right lower extremity with warmth, edema, tenderness, and two moderate sized superficial wounds Neurologic: alert, responsive Last 24 Hour Vital Signs Date Time Temp Pulse Resp B/P (MAP) Pulse Ox O2 Delivery O2 Flow Rate FiO2 02/28/18 12:14 189/89 02/28/18 12:00 97.6 81 21 189/89 (122) 97 02/28/18 12:00 80 02/28/18 09:47 Room Air 02/28/18 09:18 87 18 Room Air 21 02/28/18 08:00 77 02/28/18 08:00 97.7 79 19 151/77 (101) 95 02/28/18 04:00 74 02/28/18 04:00 98.8 74 18 153/78 (103) 97 02/27/18 23:30 Room Air 02/27/18 23:29 80 02/27/18 23:15 97.8 80 18 155/72 (99) 97 02/27/18 23:00 97.6 86 17 161/98 100 Room Air 02/27/18 18:47 97.5 87 17 165/108 100 Room Air 02/27/18 17:12 97.5 84 16 165/71 100 Room Air 02/27/18 15:43 97.5 74 15 179/63 100 Room Air 02/27/18 14:34 97.5 70 15 172/64 100 Room Air Intake and Output 02/27/18 02/28/18 19:00 07:00 Intake Total 385 ml 210 ml Output Total 200 ml Balance 385 ml 10 ml Intake Oral 150 ml IV Total 385 ml Other 60 ml Output Urine Total 200 ml # Voids 1 Laboratory Tests Test 02/28/18 07:05 White Blood Count 8.7 K/UL (4.8-10.8) Red Blood Count 4.08 M/UL (4.20-5.40) L Hemoglobin 9.3 G/DL (12.0-16.0) L Hematocrit 29.8 % (37.0-47.0) L Mean Corpuscular Volume 73 FL (80-99) L Mean Corpuscular Hemoglobin 22.8 PG (27.0-31.0) L Mean Corpuscular Hemoglobin Concent 31.2 G/DL (32.0-36.0) L Red Cell Distribution Width 12.0 % (11.6-14.8) Platelet Count 226 K/UL (150-450) Mean Platelet Volume 9.1 FL (6.5-10.1) Neutrophils (%) (Auto) 60.9 % (45.0-75.0) Lymphocytes (%) (Auto) 23.0 % (20.0-45.0) Monocytes (%) (Auto) 12.0 % (1.0-10.0) H Eosinophils (%) (Auto) 3.1 % (0.0-3.0) H Basophils (%) (Auto) 1.0 % (0.0-2.0) Sodium Level 143 MMOL/L (136-145) Potassium Level 4.5 MMOL/L (3.5-5.1) Chloride Level 108 MMOL/L (98-107) H Carbon Dioxide Level 28 MMOL/L (21-32) Anion Gap 7 mmol/L (5-15) Blood Urea Nitrogen 23 mg/dL (7-18) H Creatinine 1.2 MG/DL (0.55-1.30) Estimat Glomerular Filtration Rate 53.8 mL/min (>60) Glucose Level 123 MG/DL (74-106) H Calcium Level 9.1 MG/DL (8.5-10.1) Total Bilirubin 0.3 MG/DL (0.2-1.0) Aspartate Amino Transf (AST/SGOT) 17 U/L (15-37) Alanine Aminotransferase (ALT/SGPT) 16 U/L (12-78) Alkaline Phosphatase 101 U/L (46-116) Total Protein 6.9 G/DL (6.4-8.2) Albumin 2.3 G/DL (3.4-5.0) L Globulin 4.6 g/dL Albumin/Globulin Ratio 0.5 (1.0-2.7) L Height (Feet): 5 Height (Inches): 4.00 Weight (Pounds): 208 Medications Current Medications Medications (Trade) Dose Ordered Sig/Alfonso Route PRN Reason Start Time Stop Time Status Last Admin Dose Admin Acetaminophen (Tylenol) 650 mg Q4H PRN ORAL fever (temp>100.5F) 02/27/18 20:45 03/29/18 20:44 Albuterol/ Ipratropium (Albuterol/ Ipratropium) 3 ml Q4H PRN HHN Shortness of Breath 02/27/18 20:45 03/04/18 20:44 Cefepime HCl 2 gm/ Dextrose 110 ml @ 220 mls/hr Q24H IV 02/27/18 22:00 03/06/18 21:59 02/27/18 21:46 Clonidine HCl (Catapres Tab) 0.1 mg Q4H PRN ORAL For High Blood Pressure 02/28/18 11:45 03/30/18 11:44 02/28/18 12:14 Dextrose (Dextrose 50%) 25 ml Q30M PRN IV hypoglycemia 02/27/18 21:15 03/29/18 21:01 Dextrose (Dextrose 50%) 50 ml Q30M PRN IV hypoglycemia 02/27/18 21:15 03/29/18 21:14 Heparin Sodium (Porcine) (Heparin 5000 units/ml) 5,000 units EVERY 12 HOURS SUBQ 02/27/18 22:00 03/29/18 21:59 02/28/18 08:31 Insulin Aspart (NovoLOG) BEFORE MEALS AND HS SUBQ 02/27/18 21:00 03/29/18 20:59 02/28/18 11:45 Morphine Sulfate (Morphine Sulfate) 2 mg Q4H PRN IVP Moderate Pain (Pain Scale 4-6) 02/27/18 20:45 03/06/18 20:44 Nitroglycerin (Ntg) 0.4 mg Q5M PRN SL Prn Chest Pain 02/27/18 20:45 03/29/18 20:44 Ondansetron HCl (Zofran) 4 mg Q6H PRN IVP Nausea & Vomiting 02/27/18 20:45 03/29/18 20:44 Polyethylene Glycol (Miralax) 17 gm DAILYPRN PRN ORAL Constipation 02/27/18 20:45 03/29/18 20:44 Temazepam (Restoril) 15 mg HSPRN PRN ORAL Insomnia 02/27/18 20:45 03/06/18 20:44 Vancomycin HCl (Vanco rx to dose) 1 ea DAILY PRN MISC PER RX PROTOCOL 02/27/18 21:15 03/29/18 21:14 Vancomycin HCl 1 gm/Dextrose 275 ml @ 183.3 mls/ hr Q24H IVPB 02/28/18 11:00 03/05/18 10:59 02/28/18 11:00 Assessment/Plan Assessment/Plan Abx: Ceftriaxone x1 02/27 IV Vancomycin 02/27- Cefepime 02/27- Assessment: R Leg cellulitis/ulcers in the setting of chronic edema -wound cx p Afebrile No leukocytosis -u/a neg -CXR: n o acute process Hx of L leg cellulitis 06/2017 -s/p 5d Vanco/CTX> 5 days bactrim/keflex DM2 HTN chronic b/l edema and wounds s/p R 3rd toe amputation 02/2013 Depression/Anxiety Plan: -Continue IV Vancomycin #2 and switch Cefepime #2 to Ancef for cellulitis -f/u cx -Monitor CBC/CMP, temperatures -wound care -Sx f/u Thank you for this consultation. Will continue to follow along with you. Discussed with Doris Arita M.D. Feb 28, 2018 13:59
[2018-02-28 14:04] VITALS: BP 159/76
[2018-02-28] MEDS ORDERED: Albuterol/Ipratropium 3ml neb HHN PRN (15:40)
[2018-02-28] MEDS ORDERED: Nitroglycerin Subl 0.4mg tab SL PRN (15:45)
[2018-02-28 16:00] VITALS: BP 156/68
--- NOTE | 2018-02-28 16:37 | Cardiology Report ---
APPROVED REPORT EKG Measurement Heart [id number] Normal sinus rhythm Possible Anterior infarct, age undetermined Abnormal ECG
[2018-02-28] MEDS ORDERED: Morphine Sulfate 2mg/ml Inj IVP PRN (16:45)
--- NOTE | 2018-02-28 18:45 | History and Physical Report ---
DATE OF ADMISSION: 02/27/2018 CHIEF COMPLAINT: The patient is a 72-year-old female who presents with chief complaint of pain and swelling of the right leg. HISTORY OF PRESENT ILLNESS: It began approximately 3 to 4 months ago. The patient was admitted for right lower extremity cellulitis in June of 2017. Please see history and physical and discharge summary dictated at that time. The patient states history of present illness began about 3 months ago. The patient began to experience pain and swelling of the right lower extremity. The patient saw her primary care physician, Dr. Blancas. The patient was started on antibiotics on February 14, 2018. The patient completed a 10-day course of antibiotics. The wound did not get any better. Wound is now draining a purulent discharge. The patient presented to [facility] emergency room. The patient was admitted for cellulitis and abscess of the right lower extremity. REVIEW OF SYSTEMS: CONSTITUTIONAL: The patient denies weight loss or weight gain. The patient denies fevers or chills. HEENT: The patient denies ear or throat pain. The patient denies headache. CARDIOVASCULAR: The patient denies palpitation or chest pain. CHEST: The patient denies wheeze or shortness of breath. ABDOMEN: The patient denies nausea, vomiting, diarrhea, or constipation. GENITOURINARY: The patient denies dysuria or increased frequency of urination. NEUROMUSCULAR: The patient complains of right lower extremity pain and swelling as above. The patient denies seizures or generalized weakness. PAST MEDICAL HISTORY: Significant for: 1. Right lower extremity cellulitis as above. 2. Diabetes type 2. 3. Hypertension. 4. Chronic venous stasis changes of bilateral lower extremities. PAST SURGICAL HISTORY: Left toe diabetic ulcer in 2013. CURRENT MEDICATIONS: 1. Amlodipine/valsartan/hydrochlorothiazide 10/160/25 one tablet p.o. daily. 2. Aspirin 81 mg p.o. daily. 3. Glipizide 10 mg two tablets p.o. twice daily. ALLERGIES: No known drug allergies. SOCIAL HISTORY: The patient is single and lives with her adult son, his and 2 children, her [id number] and her two grandchildren. The patient denies tobacco or alcohol use. PHYSICAL EXAMINATION: VITAL SIGNS: Temperature 98.8, respirations 18, pulse 74, blood pressure 153/78. GENERAL: The patient is well-developed and well-nourished female, in no apparent distress. HEENT: Eyes, pupils are equal and responsive to light and accommodation. Extraocular movements are intact. NECK: Supple without lymphadenopathy. CHEST: Lungs are clear to auscultation bilaterally without wheezes or rales. CARDIOVASCULAR: Regular rate. S1 and S2 normal without murmurs, rubs, or gallops. ABDOMEN: Soft, nontender, and nondistended. Positive bowel sounds. No evidence of hepatosplenomegaly. Currently, no rebound or guarding noted. EXTREMITIES: There is erythema on bilateral lower extremities from the ankle to mid calf. Otherwise, without clubbing, cyanosis, or edema. RECTAL/GENITAL: Refused. NEUROLOGIC: Cranial nerves II through XII are grossly intact without focal deficits. Motor strength is 5/5 bilaterally. Deep tendon reflexes are 2+ plantar. LABORATORY STUDIES: WBC 10.9, hemoglobin 9.9, hematocrit 32.5 platelets 250,000. Sodium 141, potassium 4.5 chloride 105, CO2 29, BUN 24, creatinine 1.3, glucose 216. Urinalysis showed 4+ protein, 2+ glucose, 1+ blood with 2 to 4 rbc's. A chest x-ray was reported as no acute disease. ASSESSMENT: This is an 72-year-old female. 1. Cellulitis of right leg. 2. Chronic venous stasis changes bilaterally. 3. Diabetes type 2. 4. Hypertension. TREATMENT: 1. Cellulitis of the right lower extremity. A General Surgery consultation obtained with Dr. Smalls. The patient may require incision and drainage of draining wound. We will follow recommendations of Surgery. The patient has been started empirically on intravenous vancomycin and cefepime. 2. Chronic venous stasis changes bilateral lower extremities. A venous duplex Doppler of the bilateral lower extremities is pending. 3. Diabetes type 2. A NovoLog sliding scale has been instituted. 4. Hypertension. Continue Exforge and hydrochlorothiazide as above. Jony Cardona M.D. DR: Maximino JOB#: [id number] CC:
[2018-02-28 20:00] VITALS: BP 157/71
[2018-02-28] MEDS ORDERED: Miralax 17gm pkt ORAL PRN (20:45)
[2018-02-28] MEDS: ceFAZolin sod 1 GM in D5W 55 ML IVPB SCH (21:34)
[2018-02-28] MEDS ORDERED: Cefepime HCl 2 GM in D5W 110 ML IV SCH (22:00)
--- NOTE | 2018-02-28 22:50 | Consultation ---
History of Present Illness General Chief Complaint: Lower Extremity Injury Reason for Consultation: right leg cellulitis / wounds Present Illness HPI 72-year-old female who presents with chief complaint of pain and swelling of the right leg started 3 to 4 months ago. The Pt has been on risperdal outside of the hospital. the pt has hx of mood d/o and delirium. The pt is currently stable no behavioral issues. no agitation Allergies: Coded Allergies: No Known Allergies (Unverified , 02/27/18) Medication History Scheduled Amlodipine/Valsartan/Hctz (Exforge Hct 10-160-25 Mg Tab), 1 TAB ORAL DAILY, ( Reported) Aspirin* (Aspir 81*), 81 MG ORAL DAILY, (Reported) Glipizide (Glipizide), 20 MG PO BID, (Reported) Discontinued Medications Amlodipine Besylate (Norvasc), 5 MG ORAL EVERY 12 HOURS Discontinued Reason: Pt stopped taking med Carvedilol (Coreg), 3.125 MG ORAL EVERY 12 HOURS Discontinued Reason: Pt stopped taking med Cephalexin* (Keflex*), 500 MG ORAL EVERY 6 HOURS, (Reported) Discontinued Reason: Therapy completed Cephalexin* (Keflex*), 500 MG ORAL EVERY 12 HOURS Discontinued Reason: Therapy completed Lisinopril/Hydrochlorothiazide 10-12.5 Mg Tab (Lisinopril-Hctz 10-12.5 Mg Tab), 1 TAB ORAL DAILY, (Reported) Discontinued Reason: Pt stopped taking med Risperidone* (Risperdal*), 1 MG ORAL BEDTIME Discontinued Reason: Pt stopped taking med Patient History Limited by: medical condition History Provided By: Patient, Medical Record, PMD Healthcare decision maker Resuscitation status Full Code Advanced Directive on File Past Medical/Surgical History Past Medical/Surgical History: (1) HTN (hypertension) (2) Anemia (3) Peripheral neuropathy (4) Diabetic foot ulcer (5) Diabetic foot ulcer with osteomyelitis (6) Left leg cellulitis (7) Abscess (8) Diabetes mellitus, type II (9) Cellulitis of right leg Review of Systems Psychiatric: Reports: prior hx, anxiety Physical Exam General Appearance: alert Neurologic: oriented x 3, responsive, depressed affect Last 24 Hour Vital Signs Date Time Temp Pulse Resp B/P (MAP) Pulse Ox O2 Delivery O2 Flow Rate FiO2 02/28/18 16:00 98.4 75 18 156/68 (97) 98 12/5/18 14:04 97.8 78 21 159/76 (103) 97 02/28/18 12:14 189/89 02/28/18 12:00 97.6 81 21 189/89 (122) 97 02/28/18 12:00 80 02/28/18 09:47 Room Air 02/28/18 09:18 87 18 Room Air 21 02/28/18 08:00 77 02/28/18 08:00 97.7 79 19 151/77 (101) 95 02/28/18 04:00 74 02/28/18 04:00 98.8 74 18 153/78 (103) 97 02/27/18 23:30 Room Air 02/27/18 23:29 80 02/27/18 23:15 97.8 80 18 155/72 (99) 97 02/27/18 23:00 97.6 86 17 161/98 100 Room Air Intake and Output 02/27/18 02/28/18 19:00 07:00 Intake Total 385 ml 210 ml Output Total 200 ml Balance 385 ml 10 ml Intake Oral 150 ml IV Total 385 ml Other 60 ml Output Urine Total 200 ml # Voids 1 Laboratory Tests Test 02/28/18 07:05 White Blood Count 8.7 K/UL (4.8-10.8) Red Blood Count 4.08 M/UL (4.20-5.40) L Hemoglobin 9.3 G/DL (12.0-16.0) L Hematocrit 29.8 % (37.0-47.0) L Mean Corpuscular Volume 73 FL (80-99) L Mean Corpuscular Hemoglobin 22.8 PG (27.0-31.0) L Mean Corpuscular Hemoglobin Concent 31.2 G/DL (32.0-36.0) L Red Cell Distribution Width 12.0 % (11.6-14.8) Platelet Count 226 K/UL (150-450) Mean Platelet Volume 9.1 FL (6.5-10.1) Neutrophils (%) (Auto) 60.9 % (45.0-75.0) Lymphocytes (%) (Auto) 23.0 % (20.0-45.0) Monocytes (%) (Auto) 12.0 % (1.0-10.0) H Eosinophils (%) (Auto) 3.1 % (0.0-3.0) H Basophils (%) (Auto) 1.0 % (0.0-2.0) Sodium Level 143 MMOL/L (136-145) Potassium Level 4.5 MMOL/L (3.5-5.1) Chloride Level 108 MMOL/L (98-107) H Carbon Dioxide Level 28 MMOL/L (21-32) Anion Gap 7 mmol/L (5-15) Blood Urea Nitrogen 23 mg/dL (7-18) H Creatinine 1.2 MG/DL (0.55-1.30) Estimat Glomerular Filtration Rate 53.8 mL/min (>60) Glucose Level 123 MG/DL (74-106) H Calcium Level 9.1 MG/DL (8.5-10.1) Total Bilirubin 0.3 MG/DL (0.2-1.0) Aspartate Amino Transf (AST/SGOT) 17 U/L (15-37) Alanine Aminotransferase (ALT/SGPT) 16 U/L (12-78) Alkaline Phosphatase 101 U/L (46-116) Total Protein 6.9 G/DL (6.4-8.2) Albumin 2.3 G/DL (3.4-5.0) L Globulin 4.6 g/dL Albumin/Globulin Ratio 0.5 (1.0-2.7) L Microbiology Date/Time Source Procedure Growth Status 02/27/18 23:30 Leg Right Gram Stain - Final Resulted 02/27/18 23:30 Leg Right Wound Culture Pending Resulted Height (Feet): 5 Height (Inches): 4.00 Weight (Pounds): 208 Medications Current Medications Medications (Trade) Dose Ordered Sig/Alfonso Route PRN Reason Start Time Stop Time Status Last Admin Dose Admin Acetaminophen (Tylenol) 650 mg Q4H PRN ORAL fever (temp>100.5F) 02/28/18 15:39 03/29/18 15:38 Albuterol/ Ipratropium (Albuterol/ Ipratropium) 3 ml Q4H PRN HHN Shortness of Breath 02/28/18 15:40 03/04/18 15:39 Cefazolin Sodium 1 gm/Dextrose 55 ml @ 110 mls/hr Q8HR IVPB 02/28/18 22:00 03/07/18 21:59 02/28/18 21:34 Clonidine HCl (Catapres Tab) 0.1 mg Q4H PRN ORAL For High Blood Pressure 02/28/18 15:39 03/30/18 15:38 Dextrose (Dextrose 50%) 25 ml Q30M PRN IV hypoglycemia 02/28/18 15:45 03/29/18 21:01 Dextrose (Dextrose 50%) 50 ml Q30M PRN IV hypoglycemia 02/28/18 15:45 03/29/18 21:14 Heparin Sodium (Porcine) (Heparin 5000 units/ml) 5,000 units EVERY 12 HOURS SUBQ 02/28/18 21:00 03/29/18 21:59 Insulin Aspart (NovoLOG) BEFORE MEALS AND HS SUBQ 02/28/18 16:30 03/29/18 20:59 02/28/18 21:48 Morphine Sulfate (Morphine Sulfate) 2 mg Q4H PRN IVP Moderate Pain (Pain Scale 4-6) 02/28/18 16:45 03/06/18 20:44 Nitroglycerin (Ntg) 0.4 mg Q5M PRN SL Prn Chest Pain 02/28/18 15:45 03/29/18 20:44 Ondansetron HCl (Zofran) 4 mg Q6H PRN IVP Nausea & Vomiting 02/28/18 15:40 03/29/18 15:39 Polyethylene Glycol (Miralax) 17 gm DAILYPRN PRN ORAL Constipation 02/28/18 20:45 03/29/18 20:44 Temazepam (Restoril) 15 mg HSPRN PRN ORAL Insomnia 02/28/18 20:45 03/06/18 20:44 Vancomycin HCl (Vanco rx to dose) 1 ea DAILY PRN MISC PER RX PROTOCOL 03/01/18 09:00 03/29/18 21:14 Vancomycin HCl 1 gm/Dextrose 275 ml @ 183.3 mls/ hr Q24H IVPB 03/01/18 11:00 03/05/18 10:59 Assessment/Plan Problem List: (1) anxiety disorder Status: stable, progressing Assessment/Plan petar fudal provided ro/Shayna Munoz MD Feb 28, 2018 22:50
[2018-03-01 04:00] VITALS: BP 116/73
[2018-03-01] MEDS: ceFAZolin sod 1 GM in D5W 55 ML IVPB SCH ×3 (05:51→20:49)
[2018-03-01] MEDS: NovoLOG Insulin Flexpen SUBQ SCH ×4 (06:30→20:23)
[2018-03-01 06:31] LABS: EOSINOPHILS % (AUTO) 3.4 % (0.0-3.0); HEMATOCRIT 28.3 % (37.0-47.0); HEMOGLOBIN 8.6 G/DL (12.0-16.0); LYMPHOCYTES % (AUTO) 26.8 % (20.0-45.0); MEAN CORPUSCULAR VOLUME 73 FL (80-99); MONOCYTES % (AUTO) 11.1 % (1.0-10.0); NEUTROPHILS % (AUTO) 57.7 % (45.0-75.0); PLATELET COUNT 194 K/UL (150-450); RED BLOOD COUNT 3.88 M/UL (4.20-5.40); RED CELL DISTRIBUTION WIDTH 12.5 % (11.6-14.8); WHITE BLOOD COUNT 8.4 K/UL (4.8-10.8)
[2018-03-01 06:32] LABS: ANION GAP 5 mmol/L (5-15); BLOOD UREA NITROGEN 26 mg/dL (7-18); CALCIUM 8.5 MG/DL (8.5-10.1); CARBON DIOXIDE 30 MMOL/L (21-32); CHLORIDE 106 MMOL/L (98-107); CREATININE 1.3 MG/DL (0.55-1.30); POTASSIUM 4.5 MMOL/L (3.5-5.1); SODIUM 141 MMOL/L (136-145)
[2018-03-01 08:00] VITALS: BP 156/72
[2018-03-01] MEDS: Heparin 5000 units/ml inj SUBQ SCH ×2 (08:35→20:23)
[2018-03-01 12:00] VITALS: BP 156/68
[2018-03-01] MEDS: Vancomycin 1 GM in D5W 275 ML IVPB SCH (12:18)
--- NOTE | 2018-03-01 12:28 | Infectious Diseases Prog Note ---
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 Will continue to follow along with you. Discussed with RN. Subjective Allergies: Coded Allergies: No Known Allergies (Unverified , 02/27/18) Subjective afebrile Objective Vital Signs Last 24 Hour Vital Signs Date Time Temp Pulse Resp B/P (MAP) Pulse Ox O2 Delivery O2 Flow Rate FiO2 03/01/18 09:00 Room Air 03/01/18 08:00 98.4 72 18 156/72 (100) 96 03/01/18 04:00 98.0 68 19 116/73 (87) 100 03/01/18 00:00 18 02/28/18 21:00 Room Air 02/28/18 20:00 97.7 64 19 157/71 (99) 97 02/28/18 19:30 80 18 Room Air 21 02/28/18 16:00 98.4 75 18 156/68 (97) 98 02/28/18 14:04 97.8 78 21 159/76 (103) 97 Height (Feet): 5 Height (Inches): 4.00 Weight (Pounds): 208 Objective General Appearance: no apparent distress, alert Lines, tubes and drains: peripheral HEENT: atraumatic, mucous membranes moist Neck: normal inspection Respiratory/Chest: normal breath sounds, no respiratory distress, no accessory muscle use Cardiovascular/Chest: normal rate, regular rhythm Abdomen: normal bowel sounds, non tender, soft, no organomegaly, no mass Extremities: inflammation, other Skin Exam: right lower extremity with warmth, edema, tenderness, and two moderate sized superficial wounds Neurologic: alert, responsive Microbiology Date/Time Source Procedure Growth Status 02/27/18 10:10 Blood Blood Culture - Preliminary NO GROWTH AFTER 24 HOURS Resulted 02/27/18 09:55 Blood Blood Culture - Preliminary NO GROWTH AFTER 24 HOURS Resulted 02/27/18 23:30 Leg Right Gram Stain - Final Resulted 02/27/18 23:30 Wound Culture - Preliminary Gram Positive Cocci Resulted Laboratory Tests Test 03/01/18 05:10 White Blood Count 8.4 K/UL (4.8-10.8) Red Blood Count 3.88 M/UL (4.20-5.40) L Hemoglobin 8.6 G/DL (12.0-16.0) L Hematocrit 28.3 % (37.0-47.0) L Mean Corpuscular Volume 73 FL (80-99) L Mean Corpuscular Hemoglobin 22.3 PG (27.0-31.0) L Mean Corpuscular Hemoglobin Concent 30.5 G/DL (32.0-36.0) L Red Cell Distribution Width 12.5 % (11.6-14.8) Platelet Count 194 K/UL (150-450) Mean Platelet Volume 9.1 FL (6.5-10.1) Neutrophils (%) (Auto) 57.7 % (45.0-75.0) Lymphocytes (%) (Auto) 26.8 % (20.0-45.0) Monocytes (%) (Auto) 11.1 % (1.0-10.0) H Eosinophils (%) (Auto) 3.4 % (0.0-3.0) H Basophils (%) (Auto) 1.0 % (0.0-2.0) Sodium Level 141 MMOL/L (136-145) Potassium Level 4.5 MMOL/L (3.5-5.1) Chloride Level 106 MMOL/L (98-107) Carbon Dioxide Level 30 MMOL/L (21-32) Anion Gap 5 mmol/L (5-15) Blood Urea Nitrogen 26 mg/dL (7-18) H Creatinine 1.3 MG/DL (0.55-1.30) Estimat Glomerular Filtration Rate 49.1 mL/min (>60) Glucose Level 119 MG/DL (74-106) H Calcium Level 8.5 MG/DL (8.5-10.1) Current Medications Medications (Trade) Dose Ordered Sig/Alfonso Route PRN Reason Start Time Stop Time Status Last Admin Dose Admin Acetaminophen (Tylenol) 650 mg Q4H PRN ORAL fever (temp>100.5F) 02/28/18 15:39 03/29/18 15:38 Albuterol/ Ipratropium (Albuterol/ Ipratropium) 3 ml Q4H PRN HHN Shortness of Breath 02/28/18 15:40 03/04/18 15:39 Cefazolin Sodium 1 gm/Dextrose 55 ml @ 110 mls/hr Q8HR IVPB 02/28/18 22:00 03/07/18 21:59 03/01/18 05:51 Clonidine HCl (Catapres Tab) 0.1 mg Q4H PRN ORAL For High Blood Pressure 02/28/18 15:39 03/30/18 15:38 Dextrose (Dextrose 50%) 25 ml Q30M PRN IV hypoglycemia 02/28/18 15:45 03/29/18 21:01 Dextrose (Dextrose 50%) 50 ml Q30M PRN IV hypoglycemia 02/28/18 15:45 03/29/18 21:14 Heparin Sodium (Porcine) (Heparin 5000 units/ml) 5,000 units EVERY 12 HOURS SUBQ 02/28/18 21:00 03/29/18 21:59 03/01/18 08:35 Insulin Aspart (NovoLOG) BEFORE MEALS AND HS SUBQ 02/28/18 16:30 03/29/18 20:59 02/28/18 21:48 Morphine Sulfate (Morphine Sulfate) 2 mg Q4H PRN IVP Moderate Pain (Pain Scale 4-6) 02/28/18 16:45 03/06/18 20:44 Nitroglycerin (Ntg) 0.4 mg Q5M PRN SL Prn Chest Pain 02/28/18 15:45 03/29/18 20:44 Ondansetron HCl (Zofran) 4 mg Q6H PRN IVP Nausea & Vomiting 02/28/18 15:40 03/29/18 15:39 Polyethylene Glycol (Miralax) 17 gm DAILYPRN PRN ORAL Constipation 02/28/18 20:45 03/29/18 20:44 Temazepam (Restoril) 15 mg HSPRN PRN ORAL Insomnia 02/28/18 20:45 03/06/18 20:44 Vancomycin HCl (Vanco rx to dose) 1 ea DAILY PRN MISC PER RX PROTOCOL 03/01/18 09:00 03/29/18 21:14 Vancomycin HCl 1 gm/Dextrose 275 ml @ 183.3 mls/ hr Q24H IVPB 03/01/18 11:00 03/05/18 10:59 03/01/18 12:18 Doris Plummer M.D. Mar 01, 2018 12:28
--- NOTE | 2018-03-01 13:17 | Pulmonology Progress Note ---
Assessment/Plan Problems: (1) Cellulitis of right leg (2) Abscess (3) HTN (hypertension) (4) Diabetes mellitus, type II (5) Peripheral neuropathy Assessment/Plan on IV ancef and vancomycin slightly better check electrolytes pt insisting on getting Glyburide dvt prophylaxis Subjective ROS Limited/Unobtainable: No Constitutional: Reports: no symptoms HEENT: Repors: no symptoms Respiratory: Reports: no symptoms Allergies: Coded Allergies: No Known Allergies (Unverified , 02/27/18) Objective Last 24 Hour Vital Signs Date Time Temp Pulse Resp B/P (MAP) Pulse Ox O2 Delivery O2 Flow Rate FiO2 03/01/18 12:00 98.0 66 18 156/68 (97) 98 03/01/18 09:00 Room Air 03/01/18 08:00 98.4 72 18 156/72 (100) 96 03/01/18 04:00 98.0 68 19 116/73 (87) 100 03/01/18 00:00 18 02/28/18 21:00 Room Air 02/28/18 20:00 97.7 64 19 157/71 (99) 97 02/28/18 19:30 80 18 Room Air 21 02/28/18 16:00 98.4 75 18 156/68 (97) 98 02/28/18 14:04 97.8 78 21 159/76 (103) 97 Intake and Output 02/28/18 03/01/18 19:00 07:00 Intake Total 900 ml 360 ml Balance 900 ml 360 ml Intake Oral 900 ml 250 ml IV Total 110 ml # Voids 2 2 General Appearance: WD/WN HEENT: normocephalic, atraumatic Respiratory/Chest: chest wall non-tender, lungs clear Breasts: no masses Cardiovascular: normal peripheral pulses, normal rate Abdomen: normal bowel sounds, soft, non tender Genitourinary: normal external genitalia Extremities: no cyanosis Skin: no rash 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5L, Red Cell Distribution Width 12.5, Platelet Count 194, Mean Platelet Volume 9.1, Neutrophils (%) (Auto) 57.7, Lymphocytes (%) (Auto) 26.8, Monocytes (%) (Auto) 11.1H, Eosinophils (%) (Auto) 3.4H, Basophils (%) (Auto) 1.0, Sodium Level 141, Potassium Level 4.5, Chloride Level 106, Carbon Dioxide Level 30, Anion Gap 5, Blood Urea Nitrogen 26H, Creatinine 1.3, Estimat Glomerular Filtration Rate 49.1, Glucose Level 119H, Calcium Level 8.5 Current Medications Medications (Trade) Dose Ordered Sig/Alfonso Route PRN Reason Start Time Stop Time Status Last Admin Dose Admin Acetaminophen (Tylenol) 650 mg Q4H PRN ORAL fever (temp>100.5F) 02/28/18 15:39 03/29/18 15:38 Albuterol/ Ipratropium (Albuterol/ Ipratropium) 3 ml Q4H PRN HHN Shortness of Breath 02/28/18 15:40 03/04/18 15:39 Cefazolin Sodium 1 gm/Dextrose 55 ml @ 110 mls/hr Q8HR IVPB 02/28/18 22:00 03/07/18 21:59 03/01/18 05:51 Clonidine HCl (Catapres Tab) 0.1 mg Q4H PRN ORAL For High Blood Pressure 02/28/18 15:39 03/30/18 15:38 Dextrose (Dextrose 50%) 25 ml Q30M PRN IV hypoglycemia 02/28/18 15:45 03/29/18 21:01 Dextrose (Dextrose 50%) 50 ml Q30M PRN IV hypoglycemia 02/28/18 15:45 03/29/18 21:14 Heparin Sodium (Porcine) (Heparin 5000 units/ml) 5,000 units EVERY 12 HOURS SUBQ 02/28/18 21:00 03/29/18 21:59 03/01/18 08:35 Insulin Aspart (NovoLOG) BEFORE MEALS AND HS SUBQ 02/28/18 16:30 03/29/18 20:59 02/28/18 21:48 Morphine Sulfate (Morphine Sulfate) 2 mg Q4H PRN IVP Moderate Pain (Pain Scale 4-6) 02/28/18 16:45 03/06/18 20:44 Nitroglycerin (Ntg) 0.4 mg Q5M PRN SL Prn Chest Pain 02/28/18 15:45 03/29/18 20:44 Ondansetron HCl (Zofran) 4 mg Q6H PRN IVP Nausea & Vomiting 02/28/18 15:40 03/29/18 15:39 Polyethylene Glycol (Miralax) 17 gm DAILYPRN PRN ORAL Constipation 02/28/18 20:45 03/29/18 20:44 Temazepam (Restoril) 15 mg HSPRN PRN ORAL Insomnia 02/28/18 20:45 03/06/18 20:44 Vancomycin HCl (Vanco rx to dose) 1 ea DAILY PRN MISC PER RX PROTOCOL 03/01/18 09:00 03/29/18 21:14 Vancomycin HCl 1 gm/Dextrose 275 ml @ 183.3 mls/ hr Q24H IVPB 03/01/18 11:00 03/05/18 10:59 03/01/18 12:18 Dong Ambriz MD Mar 01, 2018 13:17
--- NOTE | 2018-03-01 14:02 | General Surgery Progress Note ---
General Surgery-Progress Note Subjective Additional Comments no acute events. stable Objective Last 24 Hour Vital Signs Date Time Temp Pulse Resp B/P (MAP) Pulse Ox O2 Delivery O2 Flow Rate FiO2 03/01/18 12:00 98.0 66 18 156/68 (97) 98 03/01/18 09:00 Room Air 03/01/18 08:00 98.4 72 18 156/72 (100) 96 03/01/18 04:00 98.0 68 19 116/73 (87) 100 03/01/18 00:00 18 02/28/18 21:00 Room Air 02/28/18 20:00 97.7 64 19 157/71 (99) 97 02/28/18 19:30 80 18 Room Air 21 02/28/18 16:00 98.4 75 18 156/68 (97) 98 02/28/18 14:04 97.8 78 21 159/76 (103) 97 I&O Intake and Output 02/28/18 03/01/18 19:00 07:00 Intake Total 900 ml 360 ml Balance 900 ml 360 ml Intake Oral 900 ml 250 ml IV Total 110 ml # Voids 2 2 Dressing: other Wound: other Drains: other Cardiovascular: RSR Respiratory: clear Abdomen: soft, flat, non-tender, present bowel sounds Extremities: other Laboratory Tests Test 03/01/18 05:10 White Blood Count 8.4 K/UL (4.8-10.8) Red Blood Count 3.88 M/UL (4.20-5.40) L Hemoglobin 8.6 G/DL (12.0-16.0) L Hematocrit 28.3 % (37.0-47.0) L Mean Corpuscular Volume 73 FL (80-99) L Mean Corpuscular Hemoglobin 22.3 PG (27.0-31.0) L Mean Corpuscular Hemoglobin Concent 30.5 G/DL (32.0-36.0) L Red Cell Distribution Width 12.5 % (11.6-14.8) Platelet Count 194 K/UL (150-450) Mean Platelet Volume 9.1 FL (6.5-10.1) Neutrophils (%) (Auto) 57.7 % (45.0-75.0) Lymphocytes (%) (Auto) 26.8 % (20.0-45.0) Monocytes (%) (Auto) 11.1 % (1.0-10.0) H Eosinophils (%) (Auto) 3.4 % (0.0-3.0) H Basophils (%) (Auto) 1.0 % (0.0-2.0) Sodium Level 141 MMOL/L (136-145) Potassium Level 4.5 MMOL/L (3.5-5.1) Chloride Level 106 MMOL/L (98-107) Carbon Dioxide Level 30 MMOL/L (21-32) Anion Gap 5 mmol/L (5-15) Blood Urea Nitrogen 26 mg/dL (7-18) H Creatinine 1.3 MG/DL (0.55-1.30) Estimat Glomerular Filtration Rate 49.1 mL/min (>60) Glucose Level 119 MG/DL (74-106) H Calcium Level 8.5 MG/DL (8.5-10.1) Plan Problems: (1) Cellulitis of right leg Assessment & Plan: 72F with acute on chronic right lower extremity wounds with acute cellulitis. afebrile, HD stable, labs okay on exam right lower extremity with warmth, edema, tenderness, and two moderate sized superficial wounds likely etiology chronic venous stasis / poor flow -keep bilateral lower extremities elevated -IV abx -heel protectors -wash wounds on right leg daily; apply skin protectant and therahoney or hydrogel; non adherent dressings; wrap with kerlix. -thank you will follow with Mike Hall Mar 01, 2018 14:02
[2018-03-01 16:00] VITALS: BP 142/88
[2018-03-01] MEDS ORDERED: Heparin 2000 units/Ns 1000ml INJ PRN (16:30)
[2018-03-01] MEDS: Lidocaine 1% Plain 30 ml INJ SCH (16:30)
[2018-03-01] MEDS: GlipiZIDE 5mg tab ORAL SCH ×2 (16:30→16:34)
[2018-03-01] MEDS: Cephalexin 500mg cap ORAL SCH ×2 (18:09→20:49)
--- NOTE | 2018-03-01 19:49 | Internal Med Progress Note ---
Subjective Date of Service: Mar 01, 2018 Physician Name Jony Cardona Attending Physician Cirilo Blancas MD Current Medications Medications (Trade) Dose Ordered Sig/Alfonso Route PRN Reason Start Time Stop Time Status Last Admin Dose Admin Acetaminophen (Tylenol) 650 mg Q4H PRN ORAL fever (temp>100.5F) 02/28/18 15:39 03/29/18 15:38 Albuterol/ Ipratropium (Albuterol/ Ipratropium) 3 ml Q4H PRN HHN Shortness of Breath 02/28/18 15:40 03/04/18 15:39 Cefazolin Sodium 1 gm/Dextrose 55 ml @ 110 mls/hr Q8HR IVPB 02/28/18 22:00 03/07/18 21:59 03/01/18 05:51 Cephalexin (Keflex) 500 mg FOUR TIMES A DAY ORAL 03/01/18 18:00 03/02/18 12:00 03/01/18 18:09 Chlorhexidine Gluconate (Lorena-Hex 2%) 1 applic DAILY@2000 TOPIC 03/01/18 20:00 03/31/18 19:59 Clonidine HCl (Catapres Tab) 0.1 mg Q4H PRN ORAL For High Blood Pressure 02/28/18 15:39 03/30/18 15:38 Dextrose (Dextrose 50%) 25 ml Q30M PRN IV hypoglycemia 02/28/18 15:45 03/29/18 21:01 Dextrose (Dextrose 50%) 50 ml Q30M PRN IV hypoglycemia 02/28/18 15:45 03/29/18 21:14 Glipizide (Glucotrol) 10 mg BIAC ORAL 03/01/18 16:30 03/31/18 16:29 Heparin Sodium (Porcine) (Heparin 5000 units/ml) 5,000 units EVERY 12 HOURS SUBQ 02/28/18 21:00 03/29/18 21:59 03/01/18 08:35 Heparin Sodium/ Sodium Chloride (Heparin 2000 units/Ns 1000ml premix) 2,000 unit ONCE PRN INJ PICC PLACEMENT 03/01/18 16:30 03/02/18 23:59 Insulin Aspart (NovoLOG) BEFORE MEALS AND HS SUBQ 02/28/18 16:30 03/29/18 20:59 03/01/18 16:38 Lidocaine HCl (Xylocaine 1% 30ml) 30 ml ONCE INJ 03/01/18 16:30 03/02/18 23:59 Morphine Sulfate (Morphine Sulfate) 2 mg Q4H PRN IVP Moderate Pain (Pain Scale 4-6) 02/28/18 16:45 03/06/18 20:44 Nitroglycerin (Ntg) 0.4 mg Q5M PRN SL Prn Chest Pain 02/28/18 15:45 03/29/18 20:44 Ondansetron HCl (Zofran) 4 mg Q6H PRN IVP Nausea & Vomiting 02/28/18 15:40 03/29/18 15:39 Polyethylene Glycol (Miralax) 17 gm DAILYPRN PRN ORAL Constipation 02/28/18 20:45 03/29/18 20:44 Temazepam (Restoril) 15 mg HSPRN PRN ORAL Insomnia 02/28/18 20:45 03/06/18 20:44 Vancomycin HCl (Vanco rx to dose) 1 ea DAILY PRN MISC PER RX PROTOCOL 03/01/18 09:00 03/29/18 21:14 Vancomycin HCl 1 gm/Dextrose 275 ml @ 183.3 mls/ hr Q24H IVPB 03/01/18 11:00 03/05/18 10:59 03/01/18 12:18 Allergies: Coded Allergies: No Known Allergies (Unverified , 02/27/18) ROS Limited/Unobtainable: No Constitutional: Reports: no symptoms HEENT: Reports: no symptoms Cardiovascular: Reports: no symptoms Respiratory: Reports: no symptoms Gastrointestinal/Abdominal: Reports: no symptoms Genitourinary: Reports: no symptoms 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: Reports: no symptoms Subjective 72 YO F admitted with cellulitis right lower ext. Cover for Int [facility]-Dr Blancas Objective Last Vital Signs Date Time Temp Pulse Resp B/P (MAP) Pulse Ox O2 Delivery O2 Flow Rate FiO2 03/01/18 16:00 98.0 75 18 142/88 (106) 99 03/01/18 09:00 Room Air 02/28/18 19:30 21 General Appearance: WD/WN, no apparent distress, alert EENT: PERRL/EOMI, normal ENT inspection Neck: non-tender, normal alignment, supple, normal inspection Cardiovascular: normal peripheral pulses, normal rate, regular rhythm, no gallop/murmur, no JVD Respiratory/Chest: chest wall non-tender, lungs clear, normal breath sounds, no respiratory distress, no accessory muscle use Abdomen: normal bowel sounds, non tender, soft, no organomegaly, no mass Extremities: normal range of motion, non-tender 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 normal, no motor/sensory deficits Skin: normal pigmentation, warm/dry, other - erythema right leg Laboratory Tests Test 03/01/18 05:10 White Blood Count 8.4 K/UL (4.8-10.8) Red Blood Count 3.88 M/UL (4.20-5.40) L Hemoglobin 8.6 G/DL (12.0-16.0) L Hematocrit 28.3 % (37.0-47.0) L Mean Corpuscular Volume 73 FL (80-99) L Mean Corpuscular Hemoglobin 22.3 PG (27.0-31.0) L Mean Corpuscular Hemoglobin Concent 30.5 G/DL (32.0-36.0) L Red Cell Distribution Width 12.5 % (11.6-14.8) Platelet Count 194 K/UL (150-450) Mean Platelet Volume 9.1 FL (6.5-10.1) Neutrophils (%) (Auto) 57.7 % (45.0-75.0) Lymphocytes (%) (Auto) 26.8 % (20.0-45.0) Monocytes (%) (Auto) 11.1 % (1.0-10.0) H Eosinophils (%) (Auto) 3.4 % (0.0-3.0) H Basophils (%) (Auto) 1.0 % (0.0-2.0) Sodium Level 141 MMOL/L (136-145) Potassium Level 4.5 MMOL/L (3.5-5.1) Chloride Level 106 MMOL/L (98-107) Carbon Dioxide Level 30 MMOL/L (21-32) Anion Gap 5 mmol/L (5-15) Blood Urea Nitrogen 26 mg/dL (7-18) H Creatinine 1.3 MG/DL (0.55-1.30) Estimat Glomerular Filtration Rate 49.1 mL/min (>60) Glucose Level 119 MG/DL (74-106) H Calcium Level 8.5 MG/DL (8.5-10.1) Microbiology Date/Time Source Procedure Growth Status 02/27/18 10:10 Blood Blood Culture - Preliminary NO GROWTH AFTER 24 HOURS Resulted 02/27/18 09:55 Blood Blood Culture - Preliminary NO GROWTH AFTER 24 HOURS Resulted 02/27/18 23:30 Leg Right Gram Stain - Final Resulted 02/27/18 23:30 Wound Culture - Preliminary Gram Positive Cocci Resulted Intake and Output 02/28/18 03/01/18 19:00 07:00 Intake Total 900 ml 360 ml Balance 900 ml 360 ml Intake Oral 900 ml 250 ml IV Total 110 ml # Voids 2 2 Assessment/Plan Problem List: (1) Venous stasis of lower extremity (2) Cellulitis of right leg Assessment & Plan: Continue vanco and cefazolin per ID. See surgery consult note. (3) Diabetes mellitus, type II Assessment & Plan: Continue novolog sliding scale and glipizide. (4) HTN (hypertension) Assessment & Plan: continue prn clonidine Jony Cardona MD Mar 01, 2018 19:49
[2018-03-01 20:00] VITALS: BP 153/59
[2018-03-01] MEDS ORDERED: Dyna-Hex 2% Top Sol 2oz TOPIC SCH (20:00)
--- NOTE | 2018-03-01 23:13 | General Progress Note ---
Assessment/Plan Problem List: (1) anxiety disorder Status: stable, progressing Assessment/Plan dc risperdal provided ro/st Subjective Date patient seen: Mar 01, 2018 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: Reports: anxiety, depressed Allergies: Coded Allergies: No Known Allergies (Unverified , 02/27/18) Objective Last 24 Hour Vital Signs Date Time Temp Pulse Resp B/P (MAP) Pulse Ox O2 Delivery O2 Flow Rate FiO2 03/01/18 20:00 97.7 75 18 153/59 (90) 97 03/01/18 16:00 98.0 75 18 142/88 (106) 99 03/01/18 12:00 98.0 66 18 156/68 (97) 98 03/01/18 09:00 Room Air 03/01/18 08:00 98.4 72 18 156/72 (100) 96 03/01/18 04:00 98.0 68 19 116/73 (87) 100 03/01/18 00:00 18 Intake and Output 02/28/18 03/01/18 19:00 07:00 Intake Total 900 ml 360 ml Balance 900 ml 360 ml Intake Oral 900 ml 250 ml IV Total 110 ml # Voids 2 2 Laboratory Tests 03/01/18 05:10: White Blood Count 8.4, Red Blood Count 3.88L, Hemoglobin 8.6L, Hematocrit 28.3L , Mean Corpuscular Volume 73L, Mean Corpuscular Hemoglobin 22.3L, Mean Corpuscular Hemoglobin Concent 30.5L, Red Cell Distribution Width 12.5, Platelet Count 194, Mean Platelet Volume 9.1, Neutrophils (%) (Auto) 57.7, Lymphocytes (%) (Auto) 26.8, Monocytes (%) (Auto) 11.1H, Eosinophils (%) (Auto) 3.4H, Basophils (%) (Auto) 1.0, Sodium Level 141, Potassium Level 4.5, Chloride Level 106, Carbon Dioxide Level 30, Anion Gap 5, Blood Urea Nitrogen 26H, Creatinine 1.3, Estimat Glomerular Filtration Rate 49.1, Glucose Level 119H, Calcium Level 8.5 Height (Feet): 5 Height (Inches): 4.00 Weight (Pounds): 208 General Appearance: alert Neurologic: oriented x 3, responsive, depressed affect MIPS Medication Reconciliation Is this a Psycho/Diag encounte: No Unhealthy Alcohol Use 431 (psycho/diag only) Patient was screened for unhealthy alcohol use today or within the past 2 years. Patient was NOT identified as an unhealthy alcohol user. Tobacco Use 226 (psycho/diag only) Patient was screened for tobacco use today or within the past 2 years. Patient was NOT identified as a tobacco user. BMI 128 (psycho/diag only) BMI was documented today or within the past year. BMI was outside normal parameters, and the patient received counseling. Depression 134,411,370 (psycho/diag only) I Obtained,updated or reviewed the patient's current medications (including prescription,over the counter, herbal, and nutritional supplements). Does this Patient have Dementi: No Shayna Thorpe MD Mar 01, 2018 23:13
[2018-03-02] VITALS (7 sets, daily range): BP systolic 139–175; BP diastolic 53–89
[2018-03-02] MEDS: ceFAZolin sod 1 GM in D5W 55 ML IVPB SCH ×2 (04:51→14:30)
[2018-03-02] MEDS: NovoLOG Insulin Flexpen SUBQ SCH ×4 (06:04→16:30)
[2018-03-02 06:22] LABS: BASOPHILS % (AUTO) 0.9 % (0.0-2.0); EOSINOPHILS % (AUTO) 3.4 % (0.0-3.0); HEMATOCRIT 30.9 % (37.0-47.0); HEMOGLOBIN 9.4 G/DL (12.0-16.0); LYMPHOCYTES % (AUTO) 18.2 % (20.0-45.0); MEAN CORPUSCULAR VOLUME 73 FL (80-99); NEUTROPHILS % (AUTO) 68.5 % (45.0-75.0); PLATELET COUNT 232 K/UL (150-450); RED BLOOD COUNT 4.21 M/UL (4.20-5.40); RED CELL DISTRIBUTION WIDTH 12.4 % (11.6-14.8); WHITE BLOOD COUNT 10.3 K/UL (4.8-10.8)
[2018-03-02 06:39] LABS: ANION GAP 7 mmol/L (5-15); BLOOD UREA NITROGEN 30 mg/dL (7-18); CALCIUM 8.8 MG/DL (8.5-10.1); CARBON DIOXIDE 28 MMOL/L (21-32); CHLORIDE 101 MMOL/L (98-107); CREATININE 1.4 MG/DL (0.55-1.30); POTASSIUM 4.7 MMOL/L (3.5-5.1); SODIUM 136 MMOL/L (136-145)
[2018-03-02] MEDS: GlipiZIDE 5mg tab ORAL SCH ×2 (06:53→16:44)
[2018-03-02] MEDS: Cephalexin 500mg cap ORAL SCH (08:48)
[2018-03-02] MEDS: Heparin 5000 units/ml inj SUBQ SCH (08:48)
--- NOTE | 2018-03-02 11:01 | Diagnostic Imaging Report ---
Indications: Needs long-term IV access Technique: Ultrasound confirms patent compressible left basilic vein. Total sterile technique, including sterile probe cover and sterile gel, hat, mask, sterile gown, large sterile drape, and preparation with 2% chlorhexidine utilized. Local anesthesia with 1% lidocaine. Under real-time ultrasound guidance, puncture left basilic vein using 21-gauge needle, documented and archived, passage 0.018 guidewire. However, fluoroscopy failed to work central catheter length cannot be measured. Exchange for 5 Angolan peel-away sheath. 5 [place] Arrow dual-lumen power PICC cut to 43 cm. It was inserted through the peel-away sheath. Peel-away sheath and guidewire removed. Catheter fixed to the skin. Both catheter ports aspirated and flushed. Patient tolerated procedure well, without immediate complication. Subsequent chest radiograph documents satisfactory catheter tip position, at the mid superior vena cava. No fluoroscopy utilized, due to machine failure Impression: Successful placement of left arm PICC under sonographic guidance, as described above.
--- NOTE | 2018-03-02 11:40 | Infectious Diseases Prog Note ---
Assessment/Plan Assessment/Plan Abx: Ceftriaxone x1 02/27 IV Vancomycin 02/27- Cefepime 02/27- Assessment: R Leg cellulitis/ulcers in the setting of chronic edema; improving -wound cx S. 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 -02/28 SP Cefepime #2 -f/u cx -Monitor CBC/CMP, temperatures -wound care -Sx f/u Thank you for this consultation. Will continue to follow along with you. Discussed with RN. Subjective Allergies: Coded Allergies: No Known Allergies (Unverified , 02/27/18) Subjective afebrile patietnt did not had IV access so a pICC line was placed Objective Vital Signs Last 24 Hour Vital Signs Date Time Temp Pulse Resp B/P (MAP) Pulse Ox O2 Delivery O2 Flow Rate FiO2 03/02/18 09:00 Room Air 03/02/18 08:00 97.8 59 18 139/53 (81) 98 03/02/18 05:59 59 151/89 (109) 03/02/18 04:22 163/71 03/02/18 04:18 97.2 63 18 163/71 (101) 96 03/02/18 00:22 97.9 74 18 170/77 (108) 100 03/02/18 00:20 170/77 03/01/18 23:24 Room Air 03/01/18 20:00 97.7 75 18 153/59 (90) 97 03/01/18 16:00 98.0 75 18 142/88 (106) 99 03/01/18 12:00 98.0 66 18 156/68 (97) 98 Height (Feet): 5 Height (Inches): 4.00 Weight (Pounds): 208 Objective General Appearance: no apparent distress, alert Lines, tubes and drains: peripheral HEENT: atraumatic, mucous membranes moist Neck: normal inspection Respiratory/Chest: normal breath sounds, no respiratory distress, no accessory muscle use Cardiovascular/Chest: normal rate, regular rhythm Abdomen: normal bowel sounds, non tender, soft, no organomegaly, no mass Extremities: inflammation, other Skin Exam: right lower extremity with warmth, edema, tenderness, and two moderate sized superficial wounds Neurologic: alert, responsive Microbiology Date/Time Source Procedure Growth Status 02/27/18 23:30 Leg Right Gram Stain - Final Complete 02/27/18 23:30 Wound Culture - Final Staphylococcus Epidermidis Complete Laboratory Tests Test 03/02/18 05:10 03/02/18 10:10 White Blood Count 10.3 K/UL (4.8-10.8) Red Blood Count 4.21 M/UL (4.20-5.40) Hemoglobin 9.4 G/DL (12.0-16.0) L Hematocrit 30.9 % (37.0-47.0) L Mean Corpuscular Volume 73 FL (80-99) L Mean Corpuscular Hemoglobin 22.4 PG (27.0-31.0) L Mean Corpuscular Hemoglobin Concent 30.5 G/DL (32.0-36.0) L Red Cell Distribution Width 12.4 % (11.6-14.8) Platelet Count 232 K/UL (150-450) Mean Platelet Volume 9.4 FL (6.5-10.1) Neutrophils (%) (Auto) 68.5 % (45.0-75.0) Lymphocytes (%) (Auto) 18.2 % (20.0-45.0) L Monocytes (%) (Auto) 9.0 % (1.0-10.0) Eosinophils (%) (Auto) 3.4 % (0.0-3.0) H Basophils (%) (Auto) 0.9 % (0.0-2.0) Sodium Level 136 MMOL/L (136-145) Potassium Level 4.7 MMOL/L (3.5-5.1) Chloride Level 101 MMOL/L (98-107) Carbon Dioxide Level 28 MMOL/L (21-32) Anion Gap 7 mmol/L (5-15) Blood Urea Nitrogen 30 mg/dL (7-18) H Creatinine 1.4 MG/DL (0.55-1.30) H Estimat Glomerular Filtration Rate 45.1 mL/min (>60) Glucose Level 223 MG/DL (74-106) #H Calcium Level 8.8 MG/DL (8.5-10.1) Vancomycin Level Trough 13.8 ug/mL (5.0-12.0) H Current Medications Medications (Trade) Dose Ordered Sig/Alfonso Route PRN Reason Start Time Stop Time Status Last Admin Dose Admin Acetaminophen (Tylenol) 650 mg Q4H PRN ORAL fever (temp>100.5F) 02/28/18 15:39 03/29/18 15:38 Albuterol/ Ipratropium (Albuterol/ Ipratropium) 3 ml Q4H PRN HHN Shortness of Breath 02/28/18 15:40 03/04/18 15:39 Cefazolin Sodium 1 gm/Dextrose 55 ml @ 110 mls/hr Q8HR IVPB 02/28/18 22:00 03/07/18 21:59 03/01/18 05:51 Chlorhexidine Gluconate (Lorena-Hex 2%) 1 applic DAILY@2000 TOPIC 03/01/18 20:00 03/31/18 19:59 Clonidine HCl (Catapres Tab) 0.1 mg Q4H PRN ORAL For High Blood Pressure 02/28/18 15:39 03/30/18 15:38 03/02/18 04:22 Dextrose (Dextrose 50%) 25 ml Q30M PRN IV hypoglycemia 02/28/18 15:45 03/29/18 21:01 Dextrose (Dextrose 50%) 50 ml Q30M PRN IV hypoglycemia 02/28/18 15:45 03/29/18 21:14 Glipizide (Glucotrol) 10 mg BIAC ORAL 03/01/18 16:30 03/31/18 16:29 03/02/18 06:53 Heparin Sodium (Porcine) (Heparin 5000 units/ml) 5,000 units EVERY 12 HOURS SUBQ 02/28/18 21:00 03/29/18 21:59 03/01/18 08:35 Heparin Sodium/ Sodium Chloride (Heparin 2000 units/Ns 1000ml premix) 2,000 unit ONCE PRN INJ PICC PLACEMENT 03/01/18 16:30 03/02/18 23:59 Insulin Aspart (NovoLOG) BEFORE MEALS AND HS SUBQ 02/28/18 16:30 1/3/19 20:59 03/02/18 06:04 Lidocaine HCl (Xylocaine 1% 30ml) 30 ml ONCE INJ 03/01/18 16:30 03/02/18 23:59 Morphine Sulfate (Morphine Sulfate) 2 mg Q4H PRN IVP Moderate Pain (Pain Scale 4-6) 02/28/18 16:45 03/06/18 20:44 Nitroglycerin (Ntg) 0.4 mg Q5M PRN SL Prn Chest Pain 02/28/18 15:45 03/29/18 20:44 Ondansetron HCl (Zofran) 4 mg Q6H PRN IVP Nausea & Vomiting 02/28/18 15:40 03/29/18 15:39 Polyethylene Glycol (Miralax) 17 gm DAILYPRN PRN ORAL Constipation 02/28/18 20:45 03/29/18 20:44 Temazepam (Restoril) 15 mg HSPRN PRN ORAL Insomnia 02/28/18 20:45 03/06/18 20:44 Vancomycin HCl (Vanco rx to dose) 1 ea DAILY PRN MISC PER RX PROTOCOL 03/01/18 09:00 03/29/18 21:14 Vancomycin HCl 1 gm/Dextrose 275 ml @ 183.3 mls/ hr Q24H IVPB 03/01/18 11:00 03/05/18 10:59 03/01/18 12:18 Doris Plummer M.D. Mar 02, 2018 11:40
[2018-03-02] MEDS: Vancomycin 1 GM in D5W 275 ML IVPB SCH (11:58)
--- NOTE | 2018-03-02 11:59 | Diagnostic Imaging Report ---
APPROVED REPORT CPT Code: 98458 Present Symptoms Comments: R/O DVT BILATERAL: Imaging reveals a patent deep venous system bilaterally. There is no evidence of thrombus within the femoral, popliteal or tibial segments. The greater saphenous veins are also within normal limits. Doppler indicates normal spontaneous flow within these segments.
--- NOTE | 2018-03-02 12:13 | General Surgery Progress Note ---
General Surgery-Progress Note Subjective Symptoms: improved, tolerating diet Additional Comments edema but cellulitis improving Objective Last 24 Hour Vital Signs Date Time Temp Pulse Resp B/P (MAP) Pulse Ox O2 Delivery O2 Flow Rate FiO2 03/02/18 09:00 Room Air 03/02/18 08:00 97.8 59 18 139/53 (81) 98 03/02/18 05:59 59 151/89 (109) 03/02/18 04:22 163/71 03/02/18 04:18 97.2 63 18 163/71 (101) 96 03/02/18 00:22 97.9 74 18 170/77 (108) 100 03/02/18 00:20 170/77 03/01/18 23:24 Room Air 03/01/18 20:00 97.7 75 18 153/59 (90) 97 03/01/18 16:00 98.0 75 18 142/88 (106) 99 I&O Intake and Output 03/01/18 03/02/18 18:59 06:59 Intake Total 1835.0 ml 500 ml Balance 1835.0 ml 500 ml Intake Oral 1560 ml 500 ml IV Total 275.0 ml # Voids 3 4 Dressing: saturated Wound: clean Drains: none Cardiovascular: RSR Respiratory: clear Abdomen: soft, flat, non-tender, present bowel sounds Extremities: edema, tenderness, no cyanosis Laboratory Tests Test 03/02/18 05:10 03/02/18 10:10 White Blood Count 10.3 K/UL (4.8-10.8) Red Blood Count 4.21 M/UL (4.20-5.40) Hemoglobin 9.4 G/DL (12.0-16.0) L Hematocrit 30.9 % (37.0-47.0) L Mean Corpuscular Volume 73 FL (80-99) L Mean Corpuscular Hemoglobin 22.4 PG (27.0-31.0) L Mean Corpuscular Hemoglobin Concent 30.5 G/DL (32.0-36.0) L Red Cell Distribution Width 12.4 % (11.6-14.8) Platelet Count 232 K/UL (150-450) Mean Platelet Volume 9.4 FL (6.5-10.1) Neutrophils (%) (Auto) 68.5 % (45.0-75.0) Lymphocytes (%) (Auto) 18.2 % (20.0-45.0) L Monocytes (%) (Auto) 9.0 % (1.0-10.0) Eosinophils (%) (Auto) 3.4 % (0.0-3.0) H Basophils (%) (Auto) 0.9 % (0.0-2.0) Sodium Level 136 MMOL/L (136-145) Potassium Level 4.7 MMOL/L (3.5-5.1) Chloride Level 101 MMOL/L (98-107) Carbon Dioxide Level 28 MMOL/L (21-32) Anion Gap 7 mmol/L (5-15) Blood Urea Nitrogen 30 mg/dL (7-18) H Creatinine 1.4 MG/DL (0.55-1.30) H Estimat Glomerular Filtration Rate 45.1 mL/min (>60) Glucose Level 223 MG/DL (74-106) #H Calcium Level 8.8 MG/DL (8.5-10.1) Vancomycin Level Trough 13.8 ug/mL (5.0-12.0) H Plan Problems: (1) Cellulitis of right leg Assessment & Plan: 72F with acute on chronic right lower extremity wounds with acute cellulitis. afebrile, HD stable, labs okay on exam right lower extremity with warmth, edema, tenderness, and two moderate sized superficial wounds likely etiology chronic venous stasis / poor flow -keep bilateral lower extremities elevated -IV abx -heel protectors -wash wounds on right leg daily; apply skin protectant and therahoney or hydrogel; non adherent dressings; wrap with kerlix. -thank you will follow with Mike Hall Mar 02, 2018 12:13
--- NOTE | 2018-03-02 12:48 | General Progress Note ---
Assessment/Plan Problem List: (1) anxiety disorder Status: stable, progressing Assessment/Plan dc risperdal provided ro/st Subjective Allergies: Coded Allergies: No Known Allergies (Unverified , 02/27/18) Objective Last 24 Hour Vital Signs Date Time Temp Pulse Resp B/P (MAP) Pulse Ox O2 Delivery O2 Flow Rate FiO2 03/02/18 12:00 96.8 55 19 141/67 (91) 98 03/02/18 09:00 Room Air 03/02/18 08:00 97.8 59 18 139/53 (81) 98 03/02/18 05:59 59 151/89 (109) 03/02/18 04:22 163/71 03/02/18 04:18 97.2 63 18 163/71 (101) 96 03/02/18 00:22 97.9 74 18 170/77 (108) 100 03/02/18 00:20 170/77 03/01/18 23:24 Room Air 03/01/18 20:00 97.7 75 18 153/59 (90) 97 03/01/18 16:00 98.0 75 18 142/88 (106) 99 Intake and Output 03/01/18 03/02/18 18:59 06:59 Intake Total 1835.0 ml 500 ml Balance 1835.0 ml 500 ml Intake Oral 1560 ml 500 ml IV Total 275.0 ml # Voids 3 4 Laboratory Tests 03/02/18 05:10: White Blood Count 10.3, Red Blood Count 4.21, Hemoglobin 9.4L, Hematocrit 30.9L , Mean Corpuscular Volume 73L, Mean Corpuscular Hemoglobin 22.4L, Mean Corpuscular Hemoglobin Concent 30.5L, Red Cell Distribution Width 12.4, Platelet Count 232, Mean Platelet Volume 9.4, Neutrophils (%) (Auto) 68.5, Lymphocytes (%) (Auto) 18.2L, Monocytes (%) (Auto) 9.0, Eosinophils (%) (Auto) 3.4H, Basophils (%) (Auto) 0.9, Sodium Level 136, Potassium Level 4.7, Chloride Level 101, Carbon Dioxide Level 28, Anion Gap 7, Blood Urea Nitrogen 30H, Creatinine 1.4H, Estimat Glomerular Filtration Rate 45.1, Glucose Level 223#H, Calcium Level 8.8 03/02/18 10:10: Vancomycin Level Trough 13.8H Height (Feet): 5 Height (Inches): 4.00 Weight (Pounds): 208 General Appearance: no apparent distress, alert Neurologic: oriented x 3, responsive, depressed affect Shayna Thorpe MD Mar 02, 2018 12:48
[2018-03-02] MEDS ORDERED: [UNRECOGNIZED DRUG - OTHER] IV (12:50)
[2018-03-02] MEDS ORDERED: ancef IV (12:51)
[2018-03-02] MEDS ORDERED: GLIPIZIDE5 MG ORAL (12:51)
--- NOTE | 2018-03-02 12:52 | Pulmonology Progress Note ---
Assessment/Plan Problems: (1) Cellulitis of right leg (2) Abscess (3) HTN (hypertension) (4) Diabetes mellitus, type II (5) Peripheral neuropathy Assessment/Plan on IV ancef and vancomycin slightly better check electrolytes pt insisting on getting Glyburide dvt prophylaxis Subjective ROS Limited/Unobtainable: No Constitutional: Reports: no symptoms HEENT: Repors: no symptoms Respiratory: Reports: no symptoms Allergies: Coded Allergies: No Known Allergies (Unverified , 02/27/18) Objective Last 24 Hour Vital Signs Date Time Temp Pulse Resp B/P (MAP) Pulse Ox O2 Delivery O2 Flow Rate FiO2 03/02/18 12:00 96.8 55 19 141/67 (91) 98 03/02/18 09:00 Room Air 03/02/18 08:00 97.8 59 18 139/53 (81) 98 03/02/18 05:59 59 151/89 (109) 03/02/18 04:22 163/71 03/02/18 04:18 97.2 63 18 163/71 (101) 96 03/02/18 00:22 97.9 74 18 170/77 (108) 100 03/02/18 00:20 170/77 03/01/18 23:24 Room Air 03/01/18 20:00 97.7 75 18 153/59 (90) 97 03/01/18 16:00 98.0 75 18 142/88 (106) 99 Intake and Output 03/01/18 03/02/18 18:59 06:59 Intake Total 1835.0 ml 500 ml Balance 1835.0 ml 500 ml Intake Oral 1560 ml 500 ml IV Total 275.0 ml # Voids 3 4 General Appearance: WD/WN HEENT: normocephalic, atraumatic Respiratory/Chest: chest wall non-tender, lungs clear Cardiovascular: normal peripheral pulses, normal rate Abdomen: normal bowel sounds, soft, non tender Genitourinary: normal external genitalia Extremities: no cyanosis Skin: no rash Microbiology Date/Time Source Procedure Growth Status 02/27/18 23:30 Leg Right Gram Stain - Final Complete 02/27/18 23:30 Wound Culture - Final Staphylococcus Epidermidis Complete Laboratory Tests 03/02/18 05:10: White Blood Count 10.3, Red Blood Count 4.21, Hemoglobin 9.4L, Hematocrit 30.9L , Mean Corpuscular Volume 73L, Mean Corpuscular Hemoglobin 22.4L, Mean Corpuscular Hemoglobin Concent 30.5L, Red Cell Distribution Width 12.4, Platelet Count 232, Mean Platelet Volume 9.4, Neutrophils (%) (Auto) 68.5, Lymphocytes (%) (Auto) 18.2L, Monocytes (%) (Auto) 9.0, Eosinophils (%) (Auto) 3.4H, Basophils (%) (Auto) 0.9, Sodium Level 136, Potassium Level 4.7, Chloride Level 101, Carbon Dioxide Level 28, Anion Gap 7, Blood Urea Nitrogen 30H, Creatinine 1.4H, Estimat Glomerular Filtration Rate 45.1, Glucose Level 223#H, Calcium Level 8.8 03/02/18 10:10: Vancomycin Level Trough 13.8H Current Medications Medications (Trade) Dose Ordered Sig/Alfonso Route PRN Reason Start Time Stop Time Status Last Admin Dose Admin Acetaminophen (Tylenol) 650 mg Q4H PRN ORAL fever (temp>100.5F) 02/28/18 15:39 03/29/18 15:38 Albuterol/ Ipratropium (Albuterol/ Ipratropium) 3 ml Q4H PRN HHN Shortness of Breath 02/28/18 15:40 03/04/18 15:39 Cefazolin Sodium 1 gm/Dextrose 55 ml @ 110 mls/hr Q8HR IVPB 02/28/18 22:00 03/07/18 21:59 03/01/18 05:51 Chlorhexidine Gluconate (Lorena-Hex 2%) 1 applic DAILY@2000 TOPIC 03/01/18 20:00 03/31/18 19:59 Clonidine HCl (Catapres Tab) 0.1 mg Q4H PRN ORAL For High Blood Pressure 02/28/18 15:39 03/30/18 15:38 03/02/18 04:22 Dextrose (Dextrose 50%) 25 ml Q30M PRN IV hypoglycemia 02/28/18 15:45 03/29/18 21:01 Dextrose (Dextrose 50%) 50 ml Q30M PRN IV hypoglycemia 02/28/18 15:45 03/29/18 21:14 Glipizide (Glucotrol) 10 mg BIAC ORAL 03/01/18 16:30 03/31/18 16:29 03/02/18 06:53 Heparin Sodium (Porcine) (Heparin 5000 units/ml) 5,000 units EVERY 12 HOURS SUBQ 02/28/18 21:00 03/29/18 21:59 03/01/18 08:35 Heparin Sodium/ Sodium Chloride (Heparin 2000 units/Ns 1000ml premix) 2,000 unit ONCE PRN INJ PICC PLACEMENT 03/01/18 16:30 03/02/18 23:59 Insulin Aspart (NovoLOG) BEFORE MEALS AND HS SUBQ 02/28/18 16:30 03/29/18 20:59 03/02/18 06:04 Lidocaine HCl (Xylocaine 1% 30ml) 30 ml ONCE INJ 03/01/18 16:30 03/02/18 23:59 Morphine Sulfate (Morphine Sulfate) 2 mg Q4H PRN IVP Moderate Pain (Pain Scale 4-6) 02/28/18 16:45 03/06/18 20:44 Nitroglycerin (Ntg) 0.4 mg Q5M PRN SL Prn Chest Pain 02/28/18 15:45 03/29/18 20:44 Ondansetron HCl (Zofran) 4 mg Q6H PRN IVP Nausea & Vomiting 02/28/18 15:40 03/29/18 15:39 Polyethylene Glycol (Miralax) 17 gm DAILYPRN PRN ORAL Constipation 02/28/18 20:45 03/29/18 20:44 Temazepam (Restoril) 15 mg HSPRN PRN ORAL Insomnia 02/28/18 20:45 03/06/18 20:44 Vancomycin HCl (Vanco rx to dose) 1 ea DAILY PRN MISC PER RX PROTOCOL 03/01/18 09:00 03/29/18 21:14 Vancomycin HCl 1 gm/Dextrose 275 ml @ 183.3 mls/ hr Q24H IVPB 03/01/18 11:00 03/05/18 10:59 03/02/18 11:58 Dong Ambriz MD Mar 02, 2018 12:52
--- NOTE | 2018-03-02 13:58 | Discharge Summary ---
Discharge Summary Hospital Course Date of Admission Feb 27, 2018 at 11:28 Date of Discharge Admitting Diagnosis RT LEG CELLULITIS HPI Margie Yang is a 72 year old female who was admitted on Feb 27, 2018 at 11:28 for Right Leg Cellulitis Hospital Course Last 24 Hour Vital Signs Date Time Temp Pulse Resp B/P (MAP) Pulse Ox O2 Delivery O2 Flow Rate FiO2 03/02/18 12:00 96.8 55 19 141/67 (91) 98 03/02/18 09:00 Room Air 03/02/18 08:00 97.8 59 18 139/53 (81) 98 03/02/18 05:59 59 151/89 (109) 03/02/18 04:22 163/71 03/02/18 04:18 97.2 63 18 163/71 (101) 96 03/02/18 00:22 97.9 74 18 170/77 (108) 100 03/02/18 00:20 170/77 03/01/18 23:24 Room Air 03/01/18 20:00 97.7 75 18 153/59 (90) 97 03/01/18 16:00 98.0 75 18 142/88 (106) 99 Discharge Discharge Disposition Patient was discharged to SNF/Subacute Facility(03) Cirilo Blancas MD Mar 02, 2018 13:58
[2018-03-02] MEDS: Lidocaine 1% Plain 30 ml INJ SCH (14:33)
--- NOTE | 2018-03-02 20:28 | Internal Med Progress Note ---
Subjective Date of Service: Mar 02, 2018 Physician Name Jony Cardona Attending Physician Cirilo Blancas MD Current Medications Medications (Trade) Dose Ordered Sig/Alfonso Route PRN Reason Start Time Stop Time Status Last Admin Dose Admin Acetaminophen (Tylenol) 650 mg Q4H PRN ORAL fever (temp>100.5F) 02/28/18 15:39 03/29/18 15:38 Albuterol/ Ipratropium (Albuterol/ Ipratropium) 3 ml Q4H PRN HHN Shortness of Breath 02/28/18 15:40 03/04/18 15:39 Cefazolin Sodium 1 gm/Dextrose 55 ml @ 110 mls/hr Q8HR IVPB 02/28/18 22:00 03/07/18 21:59 03/02/18 14:30 Chlorhexidine Gluconate (Lorena-Hex 2%) 1 applic DAILY@2000 TOPIC 03/01/18 20:00 03/31/18 19:59 Clonidine HCl (Catapres Tab) 0.1 mg Q4H PRN ORAL For High Blood Pressure 02/28/18 15:39 03/30/18 15:38 03/02/18 18:05 Dextrose (Dextrose 50%) 25 ml Q30M PRN IV hypoglycemia 02/28/18 15:45 03/29/18 21:01 Dextrose (Dextrose 50%) 50 ml Q30M PRN IV hypoglycemia 02/28/18 15:45 03/29/18 21:14 Glipizide (Glucotrol) 10 mg BIAC ORAL 03/01/18 16:30 03/31/18 16:29 03/02/18 16:44 Heparin Sodium (Porcine) (Heparin 5000 units/ml) 5,000 units EVERY 12 HOURS SUBQ 02/28/18 21:00 03/29/18 21:59 03/01/18 08:35 Heparin Sodium/ Sodium Chloride (Heparin 2000 units/Ns 1000ml premix) 2,000 unit ONCE PRN INJ PICC PLACEMENT 03/01/18 16:30 03/02/18 23:59 Insulin Aspart (NovoLOG) BEFORE MEALS AND HS SUBQ 02/28/18 16:30 03/29/18 20:59 03/02/18 06:04 Lidocaine HCl (Xylocaine 1% 30ml) 30 ml ONCE INJ 12/6/18 16:30 03/02/18 23:59 Morphine Sulfate (Morphine Sulfate) 2 mg Q4H PRN IVP Moderate Pain (Pain Scale 4-6) 02/28/18 16:45 03/06/18 20:44 Nitroglycerin (Ntg) 0.4 mg Q5M PRN SL Prn Chest Pain 02/28/18 15:45 03/29/18 20:44 Ondansetron HCl (Zofran) 4 mg Q6H PRN IVP Nausea & Vomiting 02/28/18 15:40 03/29/18 15:39 Polyethylene Glycol (Miralax) 17 gm DAILYPRN PRN ORAL Constipation 02/28/18 20:45 03/29/18 20:44 Temazepam (Restoril) 15 mg HSPRN PRN ORAL Insomnia 02/28/18 20:45 03/06/18 20:44 Vancomycin HCl (Vanco rx to dose) 1 ea DAILY PRN MISC PER RX PROTOCOL 03/01/18 09:00 03/29/18 21:14 Vancomycin HCl 1 gm/Dextrose 275 ml @ 183.3 mls/ hr Q24H IVPB 03/01/18 11:00 03/05/18 10:59 03/02/18 11:58 Allergies: Coded Allergies: No Known Allergies (Unverified , 02/27/18) ROS Limited/Unobtainable: No Constitutional: Reports: no symptoms HEENT: Reports: no symptoms Cardiovascular: Reports: no symptoms Respiratory: Reports: no symptoms Gastrointestinal/Abdominal: Reports: no symptoms Genitourinary: Reports: no symptoms 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: Reports: no symptoms Subjective 72 YO F admitted with cellulitis right lower ext. Cover for Int Yan-Dr Blancas. S/P PICC line 03/02/18 Objective Last Vital Signs Date Time Temp Pulse Resp B/P (MAP) Pulse Ox O2 Delivery O2 Flow Rate FiO2 03/02/18 18:05 175/65 03/02/18 16:00 97.3 60 18 98 03/02/18 09:00 Room Air 02/28/18 19:30 21 Laboratory Tests Test 03/02/18 05:10 03/02/18 10:10 White Blood Count 10.3 K/UL (4.8-10.8) Red Blood Count 4.21 M/UL (4.20-5.40) Hemoglobin 9.4 G/DL (12.0-16.0) L Hematocrit 30.9 % (37.0-47.0) L Mean Corpuscular Volume 73 FL (80-99) L Mean Corpuscular Hemoglobin 22.4 PG (27.0-31.0) L Mean Corpuscular Hemoglobin Concent 30.5 G/DL (32.0-36.0) L Red Cell Distribution Width 12.4 % (11.6-14.8) Platelet Count 232 K/UL (150-450) Mean Platelet Volume 9.4 FL (6.5-10.1) Neutrophils (%) (Auto) 68.5 % (45.0-75.0) Lymphocytes (%) (Auto) 18.2 % (20.0-45.0) L Monocytes (%) (Auto) 9.0 % (1.0-10.0) Eosinophils (%) (Auto) 3.4 % (0.0-3.0) H Basophils (%) (Auto) 0.9 % (0.0-2.0) Sodium Level 136 MMOL/L (136-145) Potassium Level 4.7 MMOL/L (3.5-5.1) Chloride Level 101 MMOL/L (98-107) Carbon Dioxide Level 28 MMOL/L (21-32) Anion Gap 7 mmol/L (5-15) Blood Urea Nitrogen 30 mg/dL (7-18) H Creatinine 1.4 MG/DL (0.55-1.30) H Estimat Glomerular Filtration Rate 45.1 mL/min (>60) Glucose Level 223 MG/DL (74-106) #H Calcium Level 8.8 MG/DL (8.5-10.1) Vancomycin Level Trough 13.8 ug/mL (5.0-12.0) H Microbiology Date/Time Source Procedure Growth Status 02/27/18 23:30 Leg Right Gram Stain - Final Complete 02/27/18 23:30 Wound Culture - Final Staphylococcus Epidermidis Complete Intake and Output 03/01/18 03/02/18 19:00 07:00 Intake Total 1835.0 ml 500 ml Balance 1835.0 ml 500 ml Intake Oral 1560 ml 500 ml IV Total 275.0 ml # Voids 3 4 Assessment/Plan Problem List: (1) Venous stasis of lower extremity (2) Cellulitis of right leg Assessment & Plan: Continue vanco and cefazolin per ID day #4/. See surgery consult note. (3) Diabetes mellitus, type II Assessment & Plan: Continue novolog sliding scale and glipizide. (4) HTN (hypertension) Assessment & Plan: continue prn clonidine Assessment/Plan Discharge to [facility] MD Mar 02, 2018 20:28
--- NOTE | 2018-03-02 20:45 | Discharge Summary ---
DATE OF ADMISSION: 02/27/2018 DATE OF DISCHARGE: 03/02/2018 HISTORY OF PRESENT ILLNESS: This is a 72-year-old female with past medical history significant for diabetes type 2 poorly controlled, hypertension, chronic vascular disease of the lower extremity with chronic venous stasis, who was presented to the hospital and after was noted to have redness on the right lower extremity. Shortly after initial evaluation, the patient was admitted to the hospital with cellulitis of right lower extremity. HOSPITAL COURSE: Throughout the hospital course, the patient was consulted with Dr. Plummer from Infectious Disease, Dr. Thorpe from Psychiatry, Dr. Ambriz from Pulmonary/Critical Care, and Dr. Smalls from General Surgery. The patient's status improved on IV antibiotics. She had a PICC line placement and subsequently was discharged to the nursing facility to be followed as an outpatient. The patient throughout the hospital course was under care of Dr. Smalls from Wound Care evaluation and was advised to have wash of the wound of the right leg daily and apply skin protection and TheraHoney or Hydrogel, nonadhesive dressing, wrapped with Kerlix. The patient's status improved and was discharged to the nursing facility to continue with IV antibiotics. FINAL DIAGNOSES: 1. Cellulitis of the right lower extremity. 2. Diabetes type 2. 3. Peripheral vascular disease. 4. Hypertension. MEDICATION ON DISCHARGE: Continue discharge medication list. ACTIVITY: As tolerated. DIET: 1800 ADA cardiac diet. FOLLOWUP: The patient was advised to follow up in my office within one week. Cirilo Blancas M.D. DR: Sami JOB#: [id number] CC:
== END 2018-03-02 18:00 | DRG 603 ==
LOC: EMR 09:59 → 2E 11:28 → EDBEDREQ 22:09 → 4E 02-28 15:24
PROC: 02HV33Z Insertion of Infusion Device into Superior Vena Cava, Percutaneous Approach (ICD-10-PCS; principal; 2018-03-02)
DX: L03.115 Cellulitis of right lower limb (principal); E11.9 Type 2 diabetes mellitus without complications; I10 Essential (primary) hypertension; I87.8 Other specified disorders of veins; Z79.82 Long term (current) use of aspirin; G62.9 Polyneuropathy, unspecified; F41.9 Anxiety disorder, unspecified
CPT/HCPCS: 36415; 36569; 71045; 76937; 80048; 80053; 80202; 81003; 82550; 82553; 82962; 83605; 83880; 84484; 85025; 87040; 87070; 87181; 87205; 93005; 93970; 94664; 96365; 99285; J1815

== ENCOUNTER 2018-04-09 18:38 | Inpatient (IN) | payer MEDICARE ==
[~2018-04-09] VITALS: Ht 162.6 cm; Wt 95.3 kg
[2018-04-09 18:38] VITALS: BP 179/78
[~2018-04-09 18:38] MED LIST changes: +GLIPIZIDE10 MG PO; +[UNRECOGNIZED DRUG - OTHER] IV; +ancef IV
--- NOTE | 2018-04-09 18:38 | NUR ---
ED Nurse Note: PT BROUGHT IN BY R34 FROM HOME DUE TO LOW BG. BG 30 ON SCENE. 25G OF D50 GIVEN BY EMS EN ROUTE. BS BROUGHT UP TO 135 UPON ARRIVAL TO ER. PT AOX4. PT DENIES HEAD TRAUMA. PT WAS FOUND MY SON AT HOME LAYING ON COUCH. PT DENIES BLOOD THINNERS.
--- NOTE | 2018-04-09 19:24 | NUR ---
ED Nurse Note: Received report from Chad/GEORGE. Pt is A/O X4. will continue to monitor.
--- NOTE | 2018-04-09 19:24 | NUR ---
ED Nurse Note: REPORT GIVEN TO GEORGE NAILS.
[2018-04-09 20:05] LABS: HEMATOCRIT 33.2 % (37.0-47.0); HEMOGLOBIN 10.1 G/DL (12.0-16.0); MEAN CORPUSCULAR VOLUME 75 FL (80-99); PLATELET COUNT 233 K/UL (150-450); RED BLOOD COUNT 4.44 M/UL (4.20-5.40); RED CELL DISTRIBUTION WIDTH 13.8 % (11.6-14.8); WHITE BLOOD COUNT 10.2 K/UL (4.8-10.8)
[2018-04-09 20:21] LABS: ANION GAP 10 mmol/L (5-15); BLOOD UREA NITROGEN 29 mg/dL (7-18); CALCIUM 8.7 MG/DL (8.5-10.1); CARBON DIOXIDE 25 MMOL/L (21-32); CHLORIDE 108 MMOL/L (98-107); CREATININE 1.4 MG/DL (0.55-1.30); POTASSIUM 4.6 MMOL/L (3.5-5.1); SODIUM 143 MMOL/L (136-145)
[2018-04-09 20:25] LABS: ALANINE AMINOTRANSFERASE 27 U/L (12-78); ALBUMIN/GLOBULIN RATIO 0.7 (1.0-2.7); ALKALINE PHOSPHATASE 147 U/L (46-116); ASPARTATE AMINO TRANSFERASE 36 U/L (15-37); BILIRUBIN,TOTAL 0.4 MG/DL (0.2-1.0); CREATINE KINASE 118 U/L (26-308)
[2018-04-09] MEDS: D5 1/2NS w/KCl 20mEq 1,000 ML IV SCH (20:31)
[2018-04-09 20:55] LABS: APPEARANCE,URINE CLEAR; BILIRUBIN, URINE NEGATIVE (NEGATIVE); COLOR,URINE PALE YELLOW; GLUCOSE, URINE (UA) 1+ (NEGATIVE); KETONES,URINE NEGATIVE (NEGATIVE); LEUKOCYTE ESTERASE ,URINE NEGATIVE (NEGATIVE); NITRITE,URINE NEGATIVE (NEGATIVE); PH,URINE 7 (4.5-8.0); PROTEIN,URINE 4+ (NEGATIVE); UROBILINOGEN,URINE NORMAL MG/DL (0.0-1.0)
[2018-04-09 23:15] VITALS: BP 175/74
[2018-04-09 23:20] VITALS: BP 130/87
--- NOTE | 2018-04-09 23:35 | NUR ---
TRANSFER TO FLOOR: Patient transferred to as ordered. Report given to Alden/GEORGE. Belongings sent with pt and rechecked with RN Accompaned by her family. Addendum: 04/10/18 at 0208 by MIRTHA TRANSFER TO FLOOR: Patient transferred to as ordered. Report given to Jesika. Belongings sent with pt and rechecked with RN Accompaned by her family.
--- NOTE | 2018-04-09 23:36 | NUR ---
NURSE NOTES: Received report & pt from Eligio Roman, ED RN via annalise. A&ox4, in room air. No s/s of acute distress & no c/o pain at this time. Belongings checked & accounted for. IV site intact & S/L'd. Noted BLE cellulitis with dressings/niurka wrap. Med-recon done. Oriented to hospital room. Called & left msg Dr. Blancas for admission orders. Bed in lowest position, call light within reach. Will continue to monitor,
--- NOTE | 2018-04-10 03:00 | NUR ---
NURSE NOTES: Changed BLE dressings with NS, therahoney, 4x4, kerlix, & niurka wrap.
[2018-04-10] MEDS: D5 1/2NS w/KCl 20mEq 1,000 ML IV SCH (03:15)
[2018-04-10 04:00] VITALS: BP 147/75
--- NOTE | 2018-04-10 07:35 | NUR ---
HAND-OFF: Report given to GEORGE Beebe.
[2018-04-10 07:36] LABS: BASOPHILS % (AUTO) 1.1 % (0.0-2.0); EOSINOPHILS % (AUTO) 1.8 % (0.0-3.0); HEMATOCRIT 30.3 % (37.0-47.0); HEMOGLOBIN 9.2 G/DL (12.0-16.0); LYMPHOCYTES % (AUTO) 13.6 % (20.0-45.0); MEAN CORPUSCULAR VOLUME 74 FL (80-99); MONOCYTES % (AUTO) 10.9 % (1.0-10.0); NEUTROPHILS % (AUTO) 72.7 % (45.0-75.0); PLATELET COUNT 229 K/UL (150-450); RED BLOOD COUNT 4.09 M/UL (4.20-5.40); RED CELL DISTRIBUTION WIDTH 14.3 % (11.6-14.8); WHITE BLOOD COUNT 9.8 K/UL (4.8-10.8)
[2018-04-10 07:51] LABS: ANION GAP 7 mmol/L (5-15); BLOOD UREA NITROGEN 26 mg/dL (7-18); CALCIUM 8.5 MG/DL (8.5-10.1); CARBON DIOXIDE 28 MMOL/L (21-32); CHLORIDE 110 MMOL/L (98-107); CREATININE 1.4 MG/DL (0.55-1.30); PHOSPHORUS 3.7 MG/DL (2.5-4.9); POTASSIUM 4.7 MMOL/L (3.5-5.1); SODIUM 145 MMOL/L (136-145)
--- NOTE | 2018-04-10 08:08 | NUR ---
NURSE NOTES: Received report from Oliva VAZQUEZ. Patient is awake alert and oriented x4, sitting up in bed eating breakfast. No s/s acute distress noted. NS running per order. IV asymptomatic. Dressings on bilateral legs clean and intact. Per report, patient has cellulitis on bilateral legs. Fall precautions maintained. Side rails upx3, bed low and locked, call light in reach. Patient reminded to call for assistance before getting OOB. Will continue to monitor.
[2018-04-10 08:30] VITALS: BP 175/55
[2018-04-10] MEDS: Heparin 5000 units/ml inj SUBQ SCH ×2 (08:57→21:00)
[2018-04-10] MEDS: Aspirin EC 81mg tab ORAL SCH (09:00)
[2018-04-10] MEDS ORDERED: ENALAPRIL MALEAT5 MG ORAL (09:44)
[2018-04-10] MEDS ORDERED: HYDRALAZINE HCL25 M1 ORAL (09:51)
--- NOTE | 2018-04-10 10:48 | NUR ---
NURSE NOTES: Clarified patient's home medications with patient's son Dayne, entered updated medications into med reconciliation. Called Dr. Blancas to inquire if MD would like to continue patient's home blood pressure medications. Awaiting callback from MD. Will continue to monitor.
--- NOTE | 2018-04-10 11:04 | Diagnostic Imaging Report ---
Indication: Chest pain Comparison: 02/27/2018 A single view chest radiograph was obtained. Findings: Some vascular prominence demonstrated the. There is probably no interstitial edema. Please correlate clinically. The heart is enlarged. Bones are slightly osteopenic. IMPRESSION: No overt CHF at this time. Correlate clinically
[2018-04-10] MEDS ORDERED: NovoLOG Insulin Flexpen SUBQ SCH ×4 (11:30→16:30)
[2018-04-10] MEDS: NovoLOG Insulin Flexpen SUBQ SCH ×3 (11:30→21:00)
[2018-04-10 12:00] VITALS: BP 171/66
--- NOTE | 2018-04-10 12:26 | Consultation ---
History of Present Illness General Date patient seen: Apr 10, 2018 Chief Complaint: Abnormal Labs Present Illness HPI 72 year old female with pmhx of chronic left and right leg cellulitis, diabetes , HTN presents to [facility] by paramedics with CC of low BS of 30. She received D50 in the filed. She is admitted for further management. Allergies: Coded Allergies: No Known Allergies (Unverified , 02/27/18) Medication History Scheduled Aspirin* (Aspir 81*), 81 MG ORAL DAILY, (Reported) Enalapril Maleate* (Enalapril Maleate*), 5 MG ORAL DAILY, (Reported) Glipizide (Glipizide), 20 MG PO BID, (Reported) Scheduled PRN Hydralazine Hcl* (Hydralazine Hcl*), 25 MG ORAL DAILY PRN for systolic blood pressure >160, (Reported) Discontinued Medications Glipizide* (Glipizide*), 10 MG ORAL BIAC Discontinued Reason: Pt stopped taking med [ancef], 1 GM IV Q8HR Discontinued Reason: Pt stopped taking med [vancmycin iv ], 1 GM IV DAILY PRN Discontinued Reason: Pt stopped taking med Patient History Healthcare decision maker Resuscitation status Full Code Advanced Directive on File Past Medical/Surgical History Past Medical/Surgical History: (1) Diabetes mellitus, type II (2) anxiety disorder (3) Peripheral neuropathy (4) HTN (hypertension) (5) Venous stasis of lower extremity Review of Systems All Other Systems: negative except mentioned in HPI Physical Exam General Appearance: WD/WN Lines, tubes and drains: peripheral HEENT: normocephalic, atraumatic Neck: non-tender, normal alignment Respiratory/Chest: chest wall non-tender, lungs clear Breasts: no masses Cardiovascular/Chest: normal peripheral pulses Abdomen: normal bowel sounds, non tender Genitourinary/Rectal: normal genital exam Extremities: normal range of motion Skin Exam: rash 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 Last 24 Hour Vital Signs Date Time Temp Pulse Resp B/P (MAP) Pulse Ox O2 Delivery O2 Flow Rate FiO2 04/10/18 09:00 Room Air 04/10/18 08:56 175/55 04/10/18 08:30 98.7 84 20 175/55 (95) 93 04/10/18 04:00 98.4 82 17 147/75 (99) 97 1/15/19 01:07 Room Air 04/09/18 23:35 97.9 78 17 174/81 97 Room Air 04/09/18 23:20 97.9 88 17 130/87 (101) 97 04/09/18 23:15 98.5 84 20 175/74 98 Room Air 04/09/18 18:38 98.9 80 20 179/78 98 Room Air 04/09/18 18:32 99.1 71 16 198/97 98 Room Air Intake and Output 04/09/18 04/10/18 19:00 07:00 Intake Total 1000 ml Balance 1000 ml Intake IV Total 1000 ml # Voids 1 3 Laboratory Tests Test 04/09/18 19:43 04/09/18 20:25 04/09/18 20:40 04/10/18 07:15 White Blood Count 10.2 K/UL (4.8-10.8) 9.8 K/UL (4.8-10.8) Red Blood Count 4.44 M/UL (4.20-5.40) 4.09 M/UL (4.20-5.40) L Hemoglobin 10.1 G/DL (12.0-16.0) L 9.2 G/DL (12.0-16.0) L Hematocrit 33.2 % (37.0-47.0) L 30.3 % (37.0-47.0) L Mean Corpuscular Volume 75 FL (80-99) L 74 FL (80-99) L Mean Corpuscular Hemoglobin 22.7 PG (27.0-31.0) L 22.5 PG (27.0-31.0) L Mean Corpuscular Hemoglobin Concent 30.4 G/DL (32.0-36.0) L 30.4 G/DL (32.0-36.0) L Red Cell Distribution Width 13.8 % (11.6-14.8) 14.3 % (11.6-14.8) Platelet Count 233 K/UL (150-450) 229 K/UL (150-450) Mean Platelet Volume 8.5 FL (6.5-10.1) 9.2 FL (6.5-10.1) Neutrophils (%) (Auto) % (45.0-75.0) 72.7 % (45.0-75.0) Lymphocytes (%) (Auto) % (20.0-45.0) 13.6 % (20.0-45.0) L Monocytes (%) (Auto) % (1.0-10.0) 10.9 % (1.0-10.0) H Eosinophils (%) (Auto) % (0.0-3.0) 1.8 % (0.0-3.0) Basophils (%) (Auto) % (0.0-2.0) 1.1 % (0.0-2.0) Differential Total Cells Counted 100 Neutrophils % (Manual) 85 % (45-75) H Lymphocytes % (Manual) 7 % (20-45) L Monocytes % (Manual) 5 % (1-10) Eosinophils % (Manual) 0 % (0-3) Basophils % (Manual) 0 % (0-2) Band Neutrophils 3 % (0-8) Platelet Estimate Adequate Platelet Morphology Normal Hypochromasia 1+ Anisocytosis 1+ Sodium Level 143 MMOL/L (136-145) 145 MMOL/L (136-145) Potassium Level 4.6 MMOL/L (3.5-5.1) 4.7 MMOL/L (3.5-5.1) Chloride Level 108 MMOL/L (98-107) H 110 MMOL/L (98-107) H Carbon Dioxide Level 25 MMOL/L (21-32) 28 MMOL/L (21-32) Anion Gap 10 mmol/L (5-15) 7 mmol/L (5-15) Blood Urea Nitrogen 29 mg/dL (7-18) H 26 mg/dL (7-18) H Creatinine 1.4 MG/DL (0.55-1.30) H 1.4 MG/DL (0.55-1.30) H Estimat Glomerular Filtration Rate 45.1 mL/min (>60) 45.1 mL/min (>60) Glucose Level 141 MG/DL (74-106) H 117 MG/DL (74-106) H Calcium Level 8.7 MG/DL (8.5-10.1) 8.5 MG/DL (8.5-10.1) Total Bilirubin 0.4 MG/DL (0.2-1.0) Aspartate Amino Transf (AST/SGOT) 36 U/L (15-37) Alanine Aminotransferase (ALT/SGPT) 27 U/L (12-78) Alkaline Phosphatase 147 U/L (46-116) H Total Creatine Kinase 118 U/L (26-308) Troponin I 0.002 ng/mL (0.000-0.056) Total Protein 7.6 G/DL (6.4-8.2) Albumin 3.0 G/DL (3.4-5.0) L Globulin 4.6 g/dL Albumin/Globulin Ratio 0.7 (1.0-2.7) L Urine Color Pale yellow Urine Appearance Clear Urine pH 7 (4.5-8.0) Urine Specific [employer] [place] 1.005 (1.005-1.035) Urine Protein 4+ (NEGATIVE) H Urine Glucose (UA) 1+ (NEGATIVE) H Urine Ketones Negative (NEGATIVE) Urine Blood 1+ (NEGATIVE) H Urine Nitrite Negative (NEGATIVE) Urine Bilirubin Negative (NEGATIVE) Urine Urobilinogen Normal MG/DL (0.0-1.0) Urine Leukocyte Esterase Negative (NEGATIVE) Urine RBC 2-4 /HPF (0 - 2) H Urine WBC 0-2 /HPF (0 - 2) Urine Squamous Epithelial Cells Few /LPF (NONE/OCC) Urine Bacteria Moderate /HPF (NONE) H Lactic Acid Level 0.60 mmol/L (0.4-2.0) Phosphorus Level 3.7 MG/DL (2.5-4.9) Magnesium Level 1.7 MG/DL (1.8-2.4) L Microbiology Date/Time Source Procedure Growth Status 04/09/18 21:18 Nasal Nares Influenza Types A,B Antigen (NATACHA) - Final Complete 04/09/18 20:25 Urine,Clean Catch Urine Culture - Preliminary Resulted Height (Feet): 5 Height (Inches): 4.00 Weight (Pounds): 210 Medications Current Medications Medications (Trade) Dose Ordered Sig/Alfonso Route PRN Reason Start Time Stop Time Status Last Admin Dose Admin Aspirin (Ecotrin) 81 mg DAILY ORAL 04/10/18 09:00 05/10/18 08:59 Clonidine HCl (Catapres Tab) 0.1 mg EVERY 6 HOURS PRN ORAL SBP>160 04/10/18 07:00 05/10/18 06:59 04/10/18 08:56 Dextrose (Dextrose 50%) 25 ml Q30M PRN IV Hypoglycemia 04/10/18 07:00 05/10/18 06:59 Dextrose (Dextrose 50%) 50 ml Q30M PRN IV Hypoglycemia 04/10/18 07:00 05/10/18 06:59 Heparin Sodium (Porcine) (Heparin 5000 units/ml) 5,000 units EVERY 12 HOURS SUBQ 04/10/18 09:00 05/10/18 08:59 04/10/18 08:57 Insulin Aspart (NovoLOG) AC+HS SUBQ 04/10/18 11:30 05/10/18 11:59 Non-Formulary Medication (Non-Formulary Med) 1 ea DAILY ORAL 04/10/18 09:00 05/10/18 08:59 UNV Sodium Chloride 1,000 ml @ 75 mls/hr [id number] IV 04/10/18 07:00 05/10/18 06:59 04/10/18 07:43 Assessment/Plan Problem List: (1) Acute encephalopathy ICD Codes: G93.40 - Encephalopathy, unspecified SNOMED: 03745899, 001822652 (2) Multiple episodes of hypoglycemia ICD Codes: E16.2 - Hypoglycemia, unspecified SNOMED: 693000844 (3) Diabetes mellitus, type II ICD Codes: E11.9 - Type 2 diabetes mellitus without complications SNOMED: 80054261 (4) anxiety disorder (5) Peripheral neuropathy ICD Codes: G62.9 - Peripheral neuropathy SNOMED: 40688745 (6) HTN (hypertension) ICD Codes: I10 - HTN (hypertension) SNOMED: 55157972 (7) Venous stasis of lower extremity ICD Codes: I87.8 - Other specified disorders of veins SNOMED: 31660749, 207419420 Assessment/Plan iv fluid sliding scale avoid long acting hypoglycemic agents Endo to see, Dr. Blood informed dvt prophylaxis wound care symptomatic treatment Dong Ambriz MD Apr 10, 2018 12:26
[2018-04-10] MEDS ORDERED: Enalapril 5mg tab ORAL SCH (12:30)
[2018-04-10] MEDS: Enalapril 5mg tab ORAL SCH (12:57)
--- NOTE | 2018-04-10 13:00 | NUR ---
NURSE NOTES: Dr. Blancas aware patient's systolic blood pressure has been running >170. Orders entered and carried out. Will reassess.
--- NOTE | 2018-04-10 13:03 | NUR ---
NURSE NOTES: Patient is refusing her mealtime insulin. States she will not take 4 units of insulin, and will only take 2 units. Informed patient that I cannot administer less insulin that what is ordered for her blood sugar level, explained sliding scale to patient, but patient still refuses. Educated patient on the risks of refusing her insulin, patient states she understands and still refuses. Will continue to monitor and assess for s/s of hyperglycemia.
--- NOTE | 2018-04-10 14:40 | NUR ---
*-* INSURANCE CLINICALS HAVE BEEN FAXED TO: [facility] [id number] BRENDAM:ROZ P: [phone] F: [phone]
--- NOTE | 2018-04-10 15:24 | Consultation ---
History of Present Illness General Date patient seen: Apr 09, 2018 Chief Complaint: Abnormal Labs Present Illness HPI 72-year-old female with hx of mmp and anxiety d/o, who presents with a chief complaint of altered mental status and hypoglycemia. the pts niece was in the room and stated that the pt has been eating less and is more irritable. the pt has hx of depression in the past and was prescribed Risperdal. the pt recently went thru a family conflict. the niece was asking for an appetite stimulant. the pt was irritable through out the eval/ Allergies: Coded Allergies: No Known Allergies (Unverified , 02/27/18) Medication History Scheduled Aspirin* (Aspir 81*), 81 MG ORAL DAILY, (Reported) Enalapril Maleate* (Enalapril Maleate*), 5 MG ORAL DAILY, (Reported) Glipizide (Glipizide), 20 MG PO BID, (Reported) Scheduled PRN Hydralazine Hcl* (Hydralazine Hcl*), 25 MG ORAL DAILY PRN for systolic blood pressure >160, (Reported) Discontinued Medications Glipizide* (Glipizide*), 10 MG ORAL BIAC Discontinued Reason: Pt stopped taking med [ancef], 1 GM IV Q8HR Discontinued Reason: Pt stopped taking med [vancmycin iv ], 1 GM IV DAILY PRN Discontinued Reason: Pt stopped taking med Patient History History Provided By: Patient, Family Member, Medical Record, PMD Healthcare decision maker Resuscitation status Full Code Advanced Directive on File Past Medical/Surgical History Past Medical/Surgical History: (1) Venous stasis of lower extremity (2) Acute encephalopathy (3) Multiple episodes of hypoglycemia (4) HTN (hypertension) (5) Anemia (6) Peripheral neuropathy (7) Diabetic foot ulcer (8) Diabetic foot ulcer with osteomyelitis (9) Left leg cellulitis (10) Abscess (11) anxiety disorder (12) Diabetes mellitus, type II (13) Cellulitis of right leg Review of Systems Psychiatric: Reports: prior hx, anxiety, depressed feelings Physical Exam General Appearance: no apparent distress, alert, overweight Neurologic: oriented x 3, responsive, depressed affect Last 24 Hour Vital Signs Date Time Temp Pulse Resp B/P (MAP) Pulse Ox O2 Delivery O2 Flow Rate FiO2 04/10/18 12:57 171/66 04/10/18 12:00 98.4 76 20 171/66 (101) 95 04/10/18 09:00 Room Air 04/10/18 08:56 175/55 04/10/18 08:30 98.7 84 20 175/55 (95) 93 04/10/18 04:00 98.4 82 17 147/75 (99) 97 04/10/18 01:07 Room Air 04/09/18 23:35 97.9 78 17 174/81 97 Room Air 04/09/18 23:20 97.9 88 17 130/87 (101) 97 04/09/18 23:15 98.5 84 20 175/74 98 Room Air 04/09/18 18:38 98.9 80 20 179/78 98 Room Air 04/09/18 18:32 99.1 71 16 198/97 98 Room Air Intake and Output 04/09/18 04/10/18 19:00 07:00 Intake Total 1000 ml Balance 1000 ml IV Total 1000 ml # Voids 1 3 Laboratory Tests Test 04/09/18 19:43 04/09/18 20:25 04/09/18 20:40 04/10/18 07:15 White Blood Count 10.2 K/UL (4.8-10.8) 9.8 K/UL (4.8-10.8) Red Blood Count 4.44 M/UL (4.20-5.40) 4.09 M/UL (4.20-5.40) L Hemoglobin 10.1 G/DL (12.0-16.0) L 9.2 G/DL (12.0-16.0) L Hematocrit 33.2 % (37.0-47.0) L 30.3 % (37.0-47.0) L Mean Corpuscular Volume 75 FL (80-99) L 74 FL (80-99) L Mean Corpuscular Hemoglobin 22.7 PG (27.0-31.0) L 22.5 PG (27.0-31.0) L Mean Corpuscular Hemoglobin Concent 30.4 G/DL (32.0-36.0) L 30.4 G/DL (32.0-36.0) L Red Cell Distribution Width 13.8 % (11.6-14.8) 14.3 % (11.6-14.8) Platelet Count 233 K/UL (150-450) 229 K/UL (150-450) Mean Platelet Volume 8.5 FL (6.5-10.1) 9.2 FL (6.5-10.1) Neutrophils (%) (Auto) % (45.0-75.0) 72.7 % (45.0-75.0) Lymphocytes (%) (Auto) % (20.0-45.0) 13.6 % (20.0-45.0) L Monocytes (%) (Auto) % (1.0-10.0) 10.9 % (1.0-10.0) H Eosinophils (%) (Auto) % (0.0-3.0) 1.8 % (0.0-3.0) Basophils (%) (Auto) % (0.0-2.0) 1.1 % (0.0-2.0) Differential Total Cells Counted 100 Neutrophils % (Manual) 85 % (45-75) H Lymphocytes % (Manual) 7 % (20-45) L Monocytes % (Manual) 5 % (1-10) Eosinophils % (Manual) 0 % (0-3) Basophils % (Manual) 0 % (0-2) Band Neutrophils 3 % (0-8) Platelet Estimate Adequate Platelet Morphology Normal Hypochromasia 1+ Anisocytosis 1+ Sodium Level 143 MMOL/L (136-145) 145 MMOL/L (136-145) Potassium Level 4.6 MMOL/L (3.5-5.1) 4.7 MMOL/L (3.5-5.1) Chloride Level 108 MMOL/L (98-107) H 110 MMOL/L (98-107) H Carbon Dioxide Level 25 MMOL/L (21-32) 28 MMOL/L (21-32) Anion Gap 10 mmol/L (5-15) 7 mmol/L (5-15) Blood Urea Nitrogen 29 mg/dL (7-18) H 26 mg/dL (7-18) H Creatinine 1.4 MG/DL (0.55-1.30) H 1.4 MG/DL (0.55-1.30) H Estimat Glomerular Filtration Rate 45.1 mL/min (>60) 45.1 mL/min (>60) Glucose Level 141 MG/DL (74-106) H 117 MG/DL (74-106) H Calcium Level 8.7 MG/DL (8.5-10.1) 8.5 MG/DL (8.5-10.1) Total Bilirubin 0.4 MG/DL (0.2-1.0) Aspartate Amino Transf (AST/SGOT) 36 U/L (15-37) Alanine Aminotransferase (ALT/SGPT) 27 U/L (12-78) Alkaline Phosphatase 147 U/L (46-116) H Total Creatine Kinase 118 U/L (26-308) Troponin I 0.002 ng/mL (0.000-0.056) Total Protein 7.6 G/DL (6.4-8.2) Albumin 3.0 G/DL (3.4-5.0) L Globulin 4.6 g/dL Albumin/Globulin Ratio 0.7 (1.0-2.7) L Urine Color Pale yellow Urine Appearance Clear Urine pH 7 (4.5-8.0) Urine Specific [place] 1.005 (1.005-1.035) Urine Protein 4+ (NEGATIVE) H Urine Glucose (UA) 1+ (NEGATIVE) H Urine Ketones Negative (NEGATIVE) Urine Blood 1+ (NEGATIVE) H Urine Nitrite Negative (NEGATIVE) Urine Bilirubin Negative (NEGATIVE) Urine Urobilinogen Normal MG/DL (0.0-1.0) Urine Leukocyte Esterase Negative (NEGATIVE) Urine RBC 2-4 /HPF (0 - 2) H Urine WBC 0-2 /HPF (0 - 2) Urine Squamous Epithelial Cells Few /LPF (NONE/OCC) Urine Bacteria Moderate /HPF (NONE) H Lactic Acid Level 0.60 mmol/L (0.4-2.0) Hemoglobin A1c 9.7 % (4.3-6.0) H Phosphorus Level 3.7 MG/DL (2.5-4.9) Magnesium Level 1.7 MG/DL (1.8-2.4) L Microbiology Date/Time Source Procedure Growth Status 04/09/18 21:18 Nasal Nares Influenza Types A,B Antigen (NATACHA) - Final Complete 04/09/18 20:25 Urine,Clean Catch Urine Culture - Preliminary Resulted Height (Feet): 5 Height (Inches): 4.00 Weight (Pounds): 210 Medications Current Medications Medications (Trade) Dose Ordered Sig/Alfonso Route PRN Reason Start Time Stop Time Status Last Admin Dose Admin Aspirin (Ecotrin) 81 mg DAILY ORAL 04/10/18 09:00 05/10/18 08:59 Clonidine HCl (Catapres Tab) 0.1 mg EVERY 6 HOURS PRN ORAL SBP>160 04/10/18 07:00 05/10/18 06:59 04/10/18 08:56 Dextrose (Dextrose 50%) 25 ml Q30M PRN IV Hypoglycemia 04/10/18 07:00 05/10/18 06:59 Dextrose (Dextrose 50%) 50 ml Q30M PRN IV Hypoglycemia 04/10/18 07:00 05/10/18 06:59 Enalapril Maleate (Vasotec) 5 mg DAILY ORAL 04/10/18 13:00 05/10/18 12:59 04/10/18 12:57 Heparin Sodium (Porcine) (Heparin 5000 units/ml) 5,000 units EVERY 12 HOURS SUBQ 04/10/18 09:00 05/10/18 08:59 04/10/18 08:57 Hydralazine HCl (Apresoline) 25 mg DAILY PRN ORAL systolic blood pressure >160 04/10/18 12:30 05/10/18 12:29 Insulin Aspart (NovoLOG) AC+HS SUBQ 04/10/18 11:30 05/10/18 11:59 Assessment/Plan Problem List: (1) anxiety disorder Assessment/Plan Ativan prn the pt was reluctant to take additional meds provided cindy/Shayna Munoz MD Apr 10, 2018 15:24
[2018-04-10 16:00] VITALS: BP 160/83
[2018-04-10] MEDS ORDERED: Insulin NovoLOG Flexpen S/S (Mod) SUBQ SCH (16:30)
--- NOTE | 2018-04-10 16:44 | NUR ---
CASE MANAGEMENT: REVIEW 72/F BIBA FROM HOME CC: ABNORMAL LABS BS 30 SI: HYPOGLYCEMIA . ACUTE ENCEPHALOPATHY T 99.1 HR 71 RR 16 BP 198/97 SAT 98% ROOM AIR BUN 29 CR 1.4 GLUCOSE 141 IS: D5 1/2 NS w/KCl 20mEq IVF BOLUS X1 D50 X1 (GIVEN BY EMS) INTERQUAL CRITERIA MET: PATIENT ADMITTED TO MED/SURG UNIT 04/09/2018 DCP: PATIENT IS FROM HOME CASE MANAGEMENT: REVIEW SI: HYPOGLYCEMIA T 98.4 HR 76 RR 20 BP 171/66 SAT 95% ROOM AIR BUN 26 CR 1.4 GLUCOSE 117 IS: VASOTEC PO TD NOVOLOG SQ AC/HS MED/SURG STATUS DCP: PATIENT IS FROM HOME
--- NOTE | 2018-04-10 17:17 | Cardiology Report ---
APPROVED REPORT EKG Measurement Heart [id number] Normal sinus rhythm Septal infarct, age undetermined Abnormal ECG
--- NOTE | 2018-04-10 17:53 | History & Physical ---
History and Physical History & Physicial Dictated for Int Med-Dr Blancas no. [id number]. Jony Cardona MD Apr 10, 2018 17:53
--- NOTE | 2018-04-10 18:42 | NUR ---
NURSE NOTES: IV infiltrated. Noted edema around IV site. IV removed intact. Patient encouraged to keep right arm elevated. Swelling has since decreased. Will continue to monitor.
--- NOTE | 2018-04-10 19:00 | History and Physical Report ---
DATE OF ADMISSION: 04/09/2018 CHIEF COMPLAINT: The patient is a 72-year-old female, who presents with a chief complaint of altered mental status and hypoglycemia. HISTORY OF PRESENT ILLNESS: The patient states she awoke yesterday, 04/09/2018. The patient took her glipizide as usual. The patient then had physical therapy at home. The patient states that she ate an omelette around 10 a.m. Physical therapy left around 2 p.m. The patient does not remember anything between 2 p.m. and when her son arrived at 7 p.m. Apparently, her son found her unconscious. 911 was called. The patient was found to have a fingerstick blood glucose of 30. The patient was given D50 in the field. The patient presented to [place] emergency room. The patient was admitted for hypoglycemia and altered mental status. REVIEW OF SYSTEMS: CONSTITUTIONAL: The patient denies weight loss or gain. The patient denies fevers or chills. HEENT: The patient denies ear or throat pain. The patient denied headaches. CARDIOVASCULAR: The patient denies palpitations or chest pain. CHEST: The patient denies wheeze or shortness of breath. ABDOMEN: The patient denies nausea, vomiting, diarrhea, or constipation. GENITOURINARY: The patient denies dysuria or increased frequency of urination. NEUROMUSCULAR: The patient denies seizures or generalized weakness. PAST MEDICAL HISTORY: Significant for, 1. Diabetes type 2. 2. Hypertension. 3. Chronic venous stasis changes in the bilateral lower extremities. 4. History of cellulitis of the right lower extremity. PAST SURGICAL HISTORY: Significant for, 1. Left toe diabetic ulcer in 2013. CURRENT MEDICATIONS: 1. Aspirin 81 mg one tablet p.o. daily. 2. Enalapril 5 mg p.o. daily. 3. Glipizide 10 mg 2 tablets p.o. twice daily. 4. Hydralazine 25 mg p.o. daily. ALLERGIES: No known drug allergies. SOCIAL HISTORY: The patient is single and lives with her adult son and his family. The patient denies tobacco or alcohol use. PHYSICAL EXAMINATION: VITAL SIGNS: Temperature 98.7, respirations 20, pulse 84, and blood pressure 175/55. GENERAL: The patient is a well-developed and well-nourished female, in no apparent distress. HEENT: Eyes, pupils are equal and responsive to light and accommodation. Extraocular movements are intact. NECK: Supple without lymphadenopathy. CHEST: Lungs are clear to auscultation bilaterally without wheezes or rales. CARDIOVASCULAR: Regular rhythm and rate. S1 and S2 are normal without murmurs, rubs, or gallops. ABDOMEN: Soft, nontender, and nondistended, but positive bowel sounds. No evidence of hepatosplenomegaly. Currently, no rebound or guarding noted. EXTREMITIES: Negative for clubbing, cyanosis, or edema. RECTAL/GENITAL: Refused. NEUROLOGIC: Cranial nerves II through XII are grossly intact without focal deficits. Motor strength is 5/5 bilaterally. Deep tendon reflexes are 2+ plantar. LABORATORY STUDIES: WBC 10.2, hemoglobin 10.1, hematocrit 33.2, and platelets 233,000. Sodium 143, potassium 4.6, chloride 108, CO2 25, BUN 29, creatinine 1.4, and glucose 141. Urinalysis showed 4+ protein, 1+ glucose, 1+ blood, 2 to 4 rbc's, and 0 to 2 wbc's. ASSESSMENT: This is a 72-year-old female. 1. Altered mental status. 2. Hypoglycemia. 3. Diabetes type 2. 4. Hypertension. 5. Chronic venous stasis changes of bilateral lower extremities. TREATMENT: 1. Altered mental status/hypoglycemia. This is probably secondary to glipizide as above. An Endocrinology consultation has been obtained with Dr. Blood. The patient has been placed on NovoLog sliding scale. The patient is currently receiving D5 normal saline. We will follow recommendations of Endocrinology. 2. Diabetes type 2. As above, a NovoLog sliding scale has been instituted. Glipizide has been discontinued at this point. 3. Hypertension. Continue enalapril as above. 4. Chronic venous stasis changes. Jony Cardona M.D. DR: DONNELL JOB#: [id number] CC:
--- NOTE | 2018-04-10 19:15 | NUR ---
HAND-OFF: Report given to Danny VAZQUEZ. Patient stable.
--- NOTE | 2018-04-10 19:16 | NUR ---
NURSE NOTES: Report taken from GEORGE Beebe. Patient asleep in bed, easily arousable, A&Ox3, at times confused by where she is. IV line was infiltrated and removed, RN will place another IV line in for access. Skin is dry, but intact. Right middle toe half amputated, bilater feet elevated in bed. Bilateral legs showing some minor signs of cellulitis, both wrapped and covered in therahoney, adaptix, 4x4 and niurka wrap. Patient does require some explanation of procedures. Bed in lowest position, call light within reach.
--- NOTE | 2018-04-10 19:21 | Physician Query ---
--------- THIS DOCUMENT IS A PERMANENT PART OF THE MEDICAL RECORD --------- PLEASE COMPLETE DOCUMENT BEFORE SIGNING Dear Dr. Nikki Weinstein__ Date: 04/10/18 Yield Clerk/CDS Name: MARA Yield Clerk / CDS Phone # Exercise your independent professional judgment when responding to query. Question asked do not imply a particular answer is desired/expected. Clinical Documentation States: "ACUTE ENCEPHALOPATHY" documented in Dr. Ambriz's Consultation note Clinical Findings Show: Finger Stick Blood Glucose = 30 - given D50 on scene Please indicate the TYPE of ENCEPHALOPATHY below: [] Metabolic Encephalopathy [] Toxic Encephalopathy [] Toxic - Metabolic Encephalopathy [] Progressive Encephalopathy [X] Encephalopathy, Other [] Other: [] Not Applicable Condition Present on Admission: [X] Yes [] No []Clinically Undeterminable Please also document in your Progress Notes and/or Discharge Summary and indicate if the condition was present on admission. KELLE WEINSTEIN M.D. DATE & TIME [facility]
[2018-04-10 20:00] VITALS: BP 176/67
[2018-04-10] MEDS ORDERED: LORazepam 1mg tab ORAL PRN (21:15)
--- NOTE | 2018-04-10 22:00 | NUR ---
NURSE NOTES: Patient refused Heparin at 2100. She stated that she was not given an option in the morning to take her Aspirin. I offered the aspirin and she still refused. RN explained how the Heparin is administered BID and also the risk and benefits of both the aspirin and heparin, but she did not want either. She also refused Novolog insulin coverage for blood sugar at 126. Her sliding scale at home is different and does not understand the hospital protocol for coverage.
[2018-04-11] VITALS (7 sets, daily range): BP systolic 135–190; BP diastolic 70–85
[2018-04-11] MEDS: Enalapril 5mg tab ORAL SCH (04:58)
[2018-04-11] MEDS: NovoLOG Insulin Flexpen SUBQ SCH ×4 (06:30→21:00)
--- NOTE | 2018-04-11 07:35 | NUR ---
HAND-OFF: Report given to GEORGE Patrick.
--- NOTE | 2018-04-11 07:51 | NUR ---
NURSE NOTES: AWAKE/ALERT. NO C/O PAIN. IN N O DSITRESS.
[2018-04-11] MEDS: Aspirin EC 81mg tab ORAL SCH (08:37)
[2018-04-11] MEDS: Heparin 5000 units/ml inj SUBQ SCH ×2 (08:38→21:00)
[2018-04-11 09:14] LABS: BASOPHILS % (AUTO) 1.1 % (0.0-2.0); EOSINOPHILS % (AUTO) 3.1 % (0.0-3.0); HEMATOCRIT 30.8 % (37.0-47.0); HEMOGLOBIN 9.3 G/DL (12.0-16.0); LYMPHOCYTES % (AUTO) 21.6 % (20.0-45.0); MEAN CORPUSCULAR VOLUME 74 FL (80-99); MONOCYTES % (AUTO) 11.3 % (1.0-10.0); NEUTROPHILS % (AUTO) 62.9 % (45.0-75.0); PLATELET COUNT 232 K/UL (150-450); RED BLOOD COUNT 4.15 M/UL (4.20-5.40); WHITE BLOOD COUNT 8.8 K/UL (4.8-10.8)
[2018-04-11 09:34] LABS: ALANINE AMINOTRANSFERASE 26 U/L (12-78); ALBUMIN 2.9 G/DL (3.4-5.0); ALBUMIN/GLOBULIN RATIO 0.7 (1.0-2.7); ALKALINE PHOSPHATASE 131 U/L (46-116); ANION GAP 7 mmol/L (5-15); ASPARTATE AMINO TRANSFERASE 25 U/L (15-37); BILIRUBIN,TOTAL 0.4 MG/DL (0.2-1.0); BLOOD UREA NITROGEN 29 mg/dL (7-18); CALCIUM 8.7 MG/DL (8.5-10.1); CARBON DIOXIDE 27 MMOL/L (21-32); CHLORIDE 108 MMOL/L (98-107); CREATININE 1.5 MG/DL (0.55-1.30); PHOSPHORUS 3.3 MG/DL (2.5-4.9); POTASSIUM 4.5 MMOL/L (3.5-5.1); SODIUM 142 MMOL/L (136-145)
--- NOTE | 2018-04-11 11:27 | NUR ---
NURSE NOTES: BP 190/64. CLONIDINE 0.1MG GIVEN PO. WILL CONTINUE TO MONITOR PT'S BP.
--- NOTE | 2018-04-11 12:20 | NUR ---
NURSE NOTES: DR Gema WEINSTEIN NOTIFIED OF BLOOD CULTURE RESULTS WITH ORDER. ALSO MADE AWARE PT REFUSED INSULIN COVERAGE.
--- NOTE | 2018-04-11 12:31 | Internal Med Progress Note ---
Subjective Date of Service: Apr 11, 2018 Physician Name Jony Cardona Attending Physician Cirilo Blancas MD Current Medications Medications (Trade) Dose Ordered Sig/Alfonso Route PRN Reason Start Time Stop Time Status Last Admin Dose Admin Aspirin (Ecotrin) 81 mg DAILY ORAL 04/10/18 09:00 05/10/18 08:59 04/11/18 08:37 Clonidine HCl (Catapres Tab) 0.1 mg EVERY 6 HOURS PRN ORAL SBP>160 04/10/18 07:00 05/10/18 06:59 04/11/18 11:27 Dextrose (Dextrose 50%) 25 ml Q30M PRN IV Hypoglycemia 04/10/18 07:00 05/10/18 06:59 Dextrose (Dextrose 50%) 50 ml Q30M PRN IV Hypoglycemia 04/10/18 07:00 05/10/18 06:59 Enalapril Maleate (Vasotec) 5 mg DAILY ORAL 04/10/18 13:00 05/10/18 12:59 04/11/18 04:58 Heparin Sodium (Porcine) (Heparin 5000 units/ml) 5,000 units EVERY 12 HOURS SUBQ 04/10/18 09:00 05/10/18 08:59 04/11/18 08:38 Hydralazine HCl (Apresoline) 25 mg DAILY PRN ORAL systolic blood pressure >160 04/10/18 12:30 05/10/18 12:29 Insulin Aspart (NovoLOG) AC+HS SUBQ 04/10/18 11:30 05/10/18 11:59 04/10/18 17:18 Lorazepam (Ativan) 2 mg Q6H PRN ORAL For Anxiety 04/10/18 21:15 04/17/18 21:14 Allergies: Coded Allergies: No Known Allergies (Unverified , 02/27/18) ROS Limited/Unobtainable: No Constitutional: Reports: no symptoms HEENT: Reports: no symptoms Cardiovascular: Reports: no symptoms Respiratory: Reports: no symptoms Gastrointestinal/Abdominal: Reports: no symptoms Genitourinary: Reports: no symptoms 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: Reports: no symptoms Subjective 72 YO F with history of diabetes admitted with hypoglycemia. Await endocrinology consult. Now UTI and bacteremia. Cover for Int med-Dr Blancas Objective Last Vital Signs Date Time Temp Pulse Resp B/P (MAP) Pulse Ox O2 Delivery O2 Flow Rate FiO2 1/16/19 11:27 190/84 04/11/18 08:11 Room Air 04/11/18 08:00 98.5 81 19 96 General Appearance: WD/WN, no apparent distress, alert EENT: PERRL/EOMI, normal ENT inspection Neck: non-tender, normal alignment, supple, normal inspection Cardiovascular: normal peripheral pulses, normal rate, regular rhythm, no gallop/murmur, no JVD Respiratory/Chest: chest wall non-tender, lungs clear, normal breath sounds, no respiratory distress, no accessory muscle use Abdomen: normal bowel sounds, non tender, soft, no organomegaly, no mass Extremities: normal range of motion, non-tender Neurologic: manager global communications 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 normal, no motor/sensory deficits Skin: normal pigmentation, warm/dry Laboratory Tests Test 04/11/18 08:50 White Blood Count 8.8 K/UL (4.8-10.8) Red Blood Count 4.15 M/UL (4.20-5.40) L Hemoglobin 9.3 G/DL (12.0-16.0) L Hematocrit 30.8 % (37.0-47.0) L Mean Corpuscular Volume 74 FL (80-99) L Mean Corpuscular Hemoglobin 22.5 PG (27.0-31.0) L Mean Corpuscular Hemoglobin Concent 30.3 G/DL (32.0-36.0) L Red Cell Distribution Width 14.0 % (11.6-14.8) Platelet Count 232 K/UL (150-450) Mean Platelet Volume 9.5 FL (6.5-10.1) Neutrophils (%) (Auto) 62.9 % (45.0-75.0) Lymphocytes (%) (Auto) 21.6 % (20.0-45.0) Monocytes (%) (Auto) 11.3 % (1.0-10.0) H Eosinophils (%) (Auto) 3.1 % (0.0-3.0) H Basophils (%) (Auto) 1.1 % (0.0-2.0) Sodium Level 142 MMOL/L (136-145) Potassium Level 4.5 MMOL/L (3.5-5.1) Chloride Level 108 MMOL/L (98-107) H Carbon Dioxide Level 27 MMOL/L (21-32) Anion Gap 7 mmol/L (5-15) Blood Urea Nitrogen 29 mg/dL (7-18) H Creatinine 1.5 MG/DL (0.55-1.30) H Estimat Glomerular Filtration Rate 41.7 mL/min (>60) Glucose Level 188 MG/DL (74-106) H Calcium Level 8.7 MG/DL (8.5-10.1) Phosphorus Level 3.3 MG/DL (2.5-4.9) Magnesium Level 1.8 MG/DL (1.8-2.4) Total Bilirubin 0.4 MG/DL (0.2-1.0) Aspartate Amino Transf (AST/SGOT) 25 U/L (15-37) Alanine Aminotransferase (ALT/SGPT) 26 U/L (12-78) Alkaline Phosphatase 131 U/L (46-116) H Total Protein 7.1 G/DL (6.4-8.2) Albumin 2.9 G/DL (3.4-5.0) L Globulin 4.2 g/dL Albumin/Globulin Ratio 0.7 (1.0-2.7) L Microbiology Date/Time Source Procedure Growth Status 04/09/18 19:50 Blood Blood Culture - Preliminary NO GROWTH AFTER 24 HOURS Resulted 04/09/18 19:43 Blood Blood Culture - Preliminary Resulted 04/09/18 21:18 Nasal Nares Influenza Types A,B Antigen (NATACHA) - Final Complete 04/09/18 20:25 Urine,Clean Catch Urine Culture - Preliminary Gram Negative Bacillus 1 Resulted Intake and Output 04/10/18 04/11/18 19:00 07:00 Intake Total 965 ml 400 ml Balance 965 ml 400 ml Intake Oral 590 ml 400 ml IV Total 375 ml # Voids 4 3 Assessment/Plan Problem List: (1) Altered mental status Assessment & Plan: Due to hypoglycemia (2) Hypoglycemia Assessment & Plan: Hold glipizide. Start novolog sliding scale. Await endocrinology consult. (3) Diabetes mellitus type II, uncontrolled Assessment & Plan: Hold glipizide due to hypoglycemia. Continue novolog sliding scale. (4) HTN (hypertension) Assessment & Plan: Continue vasotec ant hydralazine (5) Venous stasis of lower extremity (6) UTI (urinary tract infection) Assessment & Plan: Gram neg sang. Start Cefepime. Await Culture result. ID consult (7) Bacteremia Assessment & Plan: Gram pos cocci. Start cefepime. Await blood culture result. ID consult Status: not improved Jony Cardona MD Apr 11, 2018 12:31
--- NOTE | 2018-04-11 12:44 | Consultation ---
History of Present Illness General Date patient seen: Apr 11, 2018 Chief Complaint: Abnormal Labs Present Illness HPI 72 y/o F with hx of Dm2, HTN, chronic venous stasis b/L LE, hx of RLE cellulitis presents to ED on 04/09 with AMS and hypoglycemia (BG 30s) Allergies: Coded Allergies: No Known Allergies (Unverified , 02/27/18) Medication History Scheduled Aspirin* (Aspir 81*), 81 MG ORAL DAILY, (Reported) Enalapril Maleate* (Enalapril Maleate*), 5 MG ORAL DAILY, (Reported) Glipizide (Glipizide), 20 MG PO BID, (Reported) Scheduled PRN Hydralazine Hcl* (Hydralazine Hcl*), 25 MG ORAL DAILY PRN for systolic blood pressure >160, (Reported) Discontinued Medications Glipizide* (Glipizide*), 10 MG ORAL BIAC Discontinued Reason: Pt stopped taking med [ancef], 1 GM IV Q8HR Discontinued Reason: Pt stopped taking med [vancmycin iv ], 1 GM IV DAILY PRN Discontinued Reason: Pt stopped taking med Patient History Healthcare decision maker Resuscitation status Full Code Advanced Directive on File Patient History Narrative Pmhx: as above Shx: : The patient is single and lives with her adult son and his family. The patient denies tobacco or alcohol use. Fhx: non contributory Review of Systems All Other Systems: negative except mentioned in HPI Physical Exam Physical Exam Narrative GENERAL: The patient is a well-developed and well-nourished female, in no apparent distress. HEENT: Eyes, pupils are equal and responsive to light and accommodation. Extraocular movements are intact. NECK: Supple without lymphadenopathy. CHEST: Lungs are clear to auscultation bilaterally without wheezes or rales. CARDIOVASCULAR: Regular rhythm and rate. S1 and S2 are normal without murmurs, rubs, or gallops. ABDOMEN: Soft, nontender, and nondistended, but positive bowel sounds. No evidence of hepatosplenomegaly. Currently, no rebound or guarding noted. EXTREMITIES: Negative for clubbing, cyanosis, or edema. Last 24 Hour Vital Signs Date Time Temp Pulse Resp B/P (MAP) Pulse Ox O2 Delivery O2 Flow Rate FiO2 04/11/18 11:27 190/84 04/11/18 08:11 Room Air 04/11/18 08:00 98.5 81 19 135/78 (97) 96 04/11/18 04:58 186/83 04/11/18 04:00 98.1 84 19 186/85 (118) 96 04/11/18 00:00 98.4 72 18 166/73 (104) 98 04/10/18 21:00 Room Air 04/10/18 20:00 98.2 76 19 176/67 (103) 96 04/10/18 16:00 98.7 82 19 160/83 (108) 98 04/10/18 12:57 171/66 Intake and Output 04/10/18 04/11/18 19:00 07:00 Intake Total 965 ml 400 ml Balance 965 ml 400 ml Intake Oral 590 ml 400 ml IV Total 375 ml # Voids 4 3 Laboratory Tests Test 04/11/18 08:50 White Blood Count 8.8 K/UL (4.8-10.8) Red Blood Count 4.15 M/UL (4.20-5.40) L Hemoglobin 9.3 G/DL (12.0-16.0) L Hematocrit 30.8 % (37.0-47.0) L Mean Corpuscular Volume 74 FL (80-99) L Mean Corpuscular Hemoglobin 22.5 PG (27.0-31.0) L Mean Corpuscular Hemoglobin Concent 30.3 G/DL (32.0-36.0) L Red Cell Distribution Width 14.0 % (11.6-14.8) Platelet Count 232 K/UL (150-450) Mean Platelet Volume 9.5 FL (6.5-10.1) Neutrophils (%) (Auto) 62.9 % (45.0-75.0) Lymphocytes (%) (Auto) 21.6 % (20.0-45.0) Monocytes (%) (Auto) 11.3 % (1.0-10.0) H Eosinophils (%) (Auto) 3.1 % (0.0-3.0) H Basophils (%) (Auto) 1.1 % (0.0-2.0) Sodium Level 142 MMOL/L (136-145) Potassium Level 4.5 MMOL/L (3.5-5.1) Chloride Level 108 MMOL/L (98-107) H Carbon Dioxide Level 27 MMOL/L (21-32) Anion Gap 7 mmol/L (5-15) Blood Urea Nitrogen 29 mg/dL (7-18) H Creatinine 1.5 MG/DL (0.55-1.30) H Estimat Glomerular Filtration Rate 41.7 mL/min (>60) Glucose Level 188 MG/DL (74-106) H Calcium Level 8.7 MG/DL (8.5-10.1) Phosphorus Level 3.3 MG/DL (2.5-4.9) Magnesium Level 1.8 MG/DL (1.8-2.4) Total Bilirubin 0.4 MG/DL (0.2-1.0) Aspartate Amino Transf (AST/SGOT) 25 U/L (15-37) Alanine Aminotransferase (ALT/SGPT) 26 U/L (12-78) Alkaline Phosphatase 131 U/L (46-116) H Total Protein 7.1 G/DL (6.4-8.2) Albumin 2.9 G/DL (3.4-5.0) L Globulin 4.2 g/dL Albumin/Globulin Ratio 0.7 (1.0-2.7) L Height (Feet): 5 Height (Inches): 4.00 Weight (Pounds): 210 Medications Current Medications Medications (Trade) Dose Ordered Sig/Alfonso Route PRN Reason Start Time Stop Time Status Last Admin Dose Admin Aspirin (Ecotrin) 81 mg DAILY ORAL 04/10/18 09:00 05/10/18 08:59 04/11/18 08:37 Cefepime HCl 1 gm/ Dextrose 55 ml @ 110 mls/hr EVERY 12 HOURS IVPB 04/11/18 12:30 04/18/18 12:29 UNV Clonidine HCl (Catapres Tab) 0.1 mg EVERY 6 HOURS PRN ORAL SBP>160 04/10/18 07:00 05/10/18 06:59 04/11/18 11:27 Dextrose (Dextrose 50%) 25 ml Q30M PRN IV Hypoglycemia 04/10/18 07:00 05/10/18 06:59 Dextrose (Dextrose 50%) 50 ml Q30M PRN IV Hypoglycemia 04/10/18 07:00 05/10/18 06:59 Enalapril Maleate (Vasotec) 5 mg DAILY ORAL 04/10/18 13:00 05/10/18 12:59 04/11/18 04:58 Heparin Sodium (Porcine) (Heparin 5000 units/ml) 5,000 units EVERY 12 HOURS SUBQ 04/10/18 09:00 05/10/18 08:59 04/11/18 08:38 Hydralazine HCl (Apresoline) 25 mg DAILY PRN ORAL systolic blood pressure >160 04/10/18 12:30 05/10/18 12:29 Insulin Aspart (NovoLOG) AC+HS SUBQ 04/10/18 11:30 05/10/18 11:59 04/10/18 17:18 Lorazepam (Ativan) 2 mg Q6H PRN ORAL For Anxiety 04/10/18 21:15 04/17/18 21:14 Assessment/Plan Assessment/Plan Abx: CEfepime 04/11- Assessment: Afebrile No leukocytosis Bacteriuria, assymptomatic -u/a neg; ucx 60-70k GNR Gram positive bacteremia- contaminant vs real -Bcx 03/30 GPC clusters Acute encephalopathy 2ry to hypoglycemia Dm2 HTN chronic venous stasis b/L LE hx of RLE cellulitis Plan: -Start empiric IV Vancomcycin pending ID GPC and repeat Bcx -Dc Cefepime as no UTI symptoms -Bcx x2 -f/u cx -Monitor CBC/CMP, temperatures -aspiration precautions Thank you for this consultation. Will continue to follow along with you. Discussed with Doris Arita M.D. Apr 11, 2018 12:44
--- NOTE | 2018-04-11 13:25 | NUR ---
NURSE NOTES: BP RECHECKED 163/70,P 80. IN NO ACUTE DISTRESS.
[2018-04-11] MEDS ORDERED: Cefepime HCl 1 GM in D5W 55 ML IVPB SCH (14:00)
--- NOTE | 2018-04-11 14:49 | Pulmonology Progress Note ---
Assessment/Plan Problems: (1) Acute encephalopathy (2) Multiple episodes of hypoglycemia (3) Diabetes mellitus, type II (4) anxiety disorder (5) Peripheral neuropathy (6) HTN (hypertension) (7) Venous stasis of lower extremity Assessment/Plan improving sliding scale diabetic diet monitor BP pt/ot wound care. Subjective ROS Limited/Unobtainable: No HEENT: Repors: no symptoms Respiratory: Reports: no symptoms Allergies: Coded Allergies: No Known Allergies (Unverified , 02/27/18) Objective Last 24 Hour Vital Signs Date Time Temp Pulse Resp B/P (MAP) Pulse Ox O2 Delivery O2 Flow Rate FiO2 04/11/18 13:25 80 163/70 (101) 04/11/18 12:00 97.6 78 190/84 (119) 04/11/18 11:27 190/84 04/11/18 08:11 Room Air 04/11/18 08:00 98.5 81 19 135/78 (97) 96 04/11/18 04:58 186/83 04/11/18 04:00 98.1 84 19 186/85 (118) 96 04/11/18 00:00 98.4 72 18 166/73 (104) 98 04/10/18 21:00 Room Air 04/10/18 20:00 98.2 76 19 176/67 (103) 96 04/10/18 16:00 98.7 82 19 160/83 (108) 98 Intake and Output 04/10/18 04/11/18 19:00 07:00 Intake Total 965 ml 400 ml Balance 965 ml 400 ml Intake Oral 590 ml 400 ml IV Total 375 ml # Voids 4 3 General Appearance: WD/WN HEENT: normocephalic, atraumatic Respiratory/Chest: chest wall non-tender, lungs clear Breasts: no masses Cardiovascular: normal peripheral pulses, normal rate Abdomen: normal bowel sounds Genitourinary: normal external genitalia Skin: no rash Microbiology Date/Time Source Procedure Growth Status 04/09/18 19:50 Blood Blood Culture - Preliminary NO GROWTH AFTER 24 HOURS Resulted 04/09/18 19:43 Blood Blood Culture - Preliminary Resulted 04/09/18 21:18 Nasal Nares Influenza Types A,B Antigen (NATACHA) - Final Complete 04/09/18 20:25 Urine,Clean Catch Urine Culture - Preliminary Gram Negative Bacillus 1 Resulted Laboratory Tests 04/11/18 08:50: White Blood Count 8.8, Red Blood Count 4.15L, Hemoglobin 9.3L, Hematocrit 30.8L , Mean Corpuscular Volume 74L, Mean Corpuscular Hemoglobin 22.5L, Mean Corpuscular Hemoglobin Concent 30.3L, Red Cell Distribution Width 14.0, Platelet Count 232, Mean Platelet Volume 9.5, Neutrophils (%) (Auto) 62.9, Lymphocytes (%) (Auto) 21.6, Monocytes (%) (Auto) 11.3H, Eosinophils (%) (Auto) 3.1H, Basophils (%) (Auto) 1.1, Sodium Level 142, Potassium Level 4.5, Chloride Level 108H, Carbon Dioxide Level 27, Anion Gap 7, Blood Urea Nitrogen 29H, Creatinine 1.5H, Estimat Glomerular Filtration Rate 41.7, Glucose Level 188H, Calcium Level 8.7, Phosphorus Level 3.3, Magnesium Level 1.8, Total Bilirubin 0.4, Aspartate Amino Transf (AST/SGOT) 25, Alanine Aminotransferase (ALT/SGPT) 26, Alkaline Phosphatase 131H, Total Protein 7.1, Albumin 2.9L, Globulin 4.2, Albumin/Globulin Ratio 0.7L Current Medications Medications (Trade) Dose Ordered Sig/Alfonso Route PRN Reason Start Time Stop Time Status Last Admin Dose Admin Aspirin (Ecotrin) 81 mg DAILY ORAL 04/10/18 09:00 05/10/18 08:59 04/11/18 08:37 Cefepime HCl 1 gm/ Dextrose 55 ml @ 110 mls/hr Q24H IVPB 04/11/18 14:00 04/18/18 13:59 04/11/18 13:40 Clonidine HCl (Catapres Tab) 0.1 mg EVERY 6 HOURS PRN ORAL SBP>160 04/10/18 07:00 05/10/18 06:59 04/11/18 11:27 Dextrose (Dextrose 50%) 25 ml Q30M PRN IV Hypoglycemia 04/10/18 07:00 05/10/18 06:59 Dextrose (Dextrose 50%) 50 ml Q30M PRN IV Hypoglycemia 04/10/18 07:00 05/10/18 06:59 Enalapril Maleate (Vasotec) 5 mg DAILY ORAL 04/10/18 13:00 05/10/18 12:59 04/11/18 04:58 Heparin Sodium (Porcine) (Heparin 5000 units/ml) 5,000 units EVERY 12 HOURS SUBQ 04/10/18 09:00 05/10/18 08:59 04/11/18 08:38 Hydralazine HCl (Apresoline) 25 mg DAILY PRN ORAL systolic blood pressure >160 04/10/18 12:30 05/10/18 12:29 Insulin Aspart (NovoLOG) AC+HS SUBQ 04/10/18 11:30 05/10/18 11:59 04/10/18 17:18 Lorazepam (Ativan) 2 mg Q6H PRN ORAL For Anxiety 04/10/18 21:15 04/17/18 21:14 Vancomycin HCl (Vanco rx to dose) 1 ea DAILY PRN MISC Per rx protocol 04/11/18 12:45 05/11/18 12:44 Vancomycin HCl 1 gm/Dextrose 275 ml @ 183.708 mls/hr Q24H IVPB 04/12/18 15:00 04/17/18 14:59 Vancomycin HCl/ Dextrose 250 ml @ 125 mls/hr ONCE ONCE IVPB 04/11/18 15:00 04/11/18 16:59 Dong Ambriz MD Apr 11, 2018 14:48
[2018-04-11] MEDS ORDERED: Vancomycin 1.5 GM/D5W 250ML IVPB ONE (15:00)
[2018-04-11] MEDS: HydrALAZINE 25mg tab ORAL PRN ×2 (15:09→21:21)
--- NOTE | 2018-04-11 16:00 | NUR ---
NURSE NOTES: BP 174/80, P 75. OFFERED APRESOLINE 25MG PO BUT REFUSED. STATES MEDICINE DOESN"T WORK. WANTS DIFFERENT M BP MEDICINE AND WANTED TO TALK TO MD. DR Gema WEINSTEIN NOTIFIED LEFT MESSAGE TO RETURN CALL.
--- NOTE | 2018-04-11 17:00 | NUR ---
NURSE NOTES: DR Gema WEINSTEIN CALLED BACK AND INFORMED OF PT'S CONCERN RE HER BP MEDS. MD STATES WILL COME TO TALK TO PT. PT AWARE.
--- NOTE | 2018-04-11 17:09 | NUR ---
[facility] [place] [phone] SPOKE TO MICHELLE RUDOLPH/AUTH# [id number] STILL PENDING REVIEW FARM REPORTER: ROZ PHONE [phone] FAX: [phone]
--- NOTE | 2018-04-11 17:12 | NUR ---
CASE MANAGEMENT: REVIEW SI: HYPOGLYCEMIA T 97.7 HR 78 RR 18 BP 190/84 SAT 96% ROOM AIR BUN 29 CR 1.5 GLUCOSE 188 IS: VASOTEC PO TD NOVOLOG SQ AC/HS MED/SURG STATUS DCP: PATIENT IS FROM HOME
--- NOTE | 2018-04-11 17:30 | Consultation ---
DATE OF CONSULTATION: 04/11/2018 CARDIAC CONSULTATION CONSULTING PHYSICIAN: Major Blood M.D. REFERRING PHYSICIAN: Jony Cardona M.D. REASON FOR CONSULTATION: Hypoglycemia. HISTORY OF PRESENT ILLNESS: The patient is a 72-year-old -[place] Citizen female with history of diabetes, on glipizide monotherapy as an outpatient, who brought to the hospital with symptomatic hypoglycemia, glucose of 30. The 911 was called and the patient was brought to the emergency room, treated with dextrose and is stabilized, admitted to the floor. PAST MEDICAL HISTORY: 1. Type 2 diabetes, as above. 2. Hypertension. 3. Chronic renal insufficiency. 4. Varicose vein. 5. History of cellulitis of the lower extremity. PAST SURGICAL HISTORY: Diabetic left toe ulcer in 2013. MEDICATIONS: As an outpatient, 1. Aspirin 81 mg daily. 2. Enalapril 5 mg daily. 3. Glipizide 10 mg b.i.d. 4. Hydralazine. ALLERGY TO MEDICATIONS: None. SOCIAL HISTORY: The patient is single, lives with her son. REVIEW OF SYSTEMS: As per HPI. PHYSICAL EXAMINATION: GENERAL: The patient is not in apparent distress. VITAL SIGNS: Blood pressure is 160/80, pulse of 80, temperature 98.2 degrees, and respiratory rate of 18. HEENT: Pupils are equal and reactive to light. Sclerae anicteric. NECK: No JVD. HEART: Regular. LUNGS: Clear. ABDOMEN: Positive bowel sounds. EXTREMITIES: Positive for edema. LABORATORY VALUES: WBC 9.8, hemoglobin 9, hematocrit 30, and platelets of 229,000. Sodium 145, potassium 4.7, chloride 110, bicarbonate 28, BUN 25, and creatinine 1.4. Hemoglobin A1c of 9.7. DIAGNOSES: 1. Hypoglycemia secondary to glipizide. 2. Chronic kidney disease. 3. Hypertension. DISCUSSION: Glipizide is a long-acting sulfonylurea and has constant hypoglycemia in this patient. This medication has been held since the admission and continue to hold. be long acting. Blood glucose should be monitored closely. We will not start on any oral hypoglycemic agent at this point. I want hypoglycemia completely resolved. We will consider treating the patient with antihypertensive medication as opposed to oral hypoglycemic agent. I will follow her during the hospital stay. Thank you, Dr. Cardona, for the courtesy of this consultation. Major Blood M.D. DR: LAZARUS JOB#: [id number] CC:
--- NOTE | 2018-04-11 18:00 | NUR ---
NURSE NOTES: BLE CELLULITIS. CLEANSED WITH NS APPLIED 4X4, KERLIX AND TIFFANIE WRAP. BOTH LEGS KEPT ELEVATED.
--- NOTE | 2018-04-11 18:16 | Emergency Room Report ---
History of Present Illness General Chief Complaint: Abnormal Labs Source: Patient, Family Member, Medical Record, PMD Present Illness HPI Patient is a 72-year-old female brought in by EMS after increased altered mental status. Patient was brought in from home. She was found on the floor. Patient had prior history of type 2 diabetes. Patient had been noted to be hypoglycemic by EMS with a blood sugar in the 30s. Patient was treated with IV dextrose and had improvement in her blood sugar. Patient was noted to be somewhat slow to respond after treatment. She had long-standing history of diabetes. Patient had been taking oral hypoglycemics. She reportedly had decreased oral intake of food.. Allergies: Coded Allergies: No Known Allergies (Unverified , 02/27/18) Patient History Past Medical History: see triage record Reviewed Nursing Documentation: PMH: Agreed; PSxH: Agreed Nursing Documentation-PMH Past Medical History: No History, Except For Hx Cardiac Problems: Yes Hx Hypertension: Yes Hx Asthma: No Hx Diabetes: Yes Hx Cancer: No Hx Gastrointestinal Problems: No Hx Neurological Problems: No Hx Peripheral Neuropathy: Yes - S/P RIGHT FOOT SURGERY 02/2013 Review of Systems All Other Systems: negative except mentioned in HPI Physical Exam Vital Signs Date Time Temp Pulse Resp B/P (MAP) Pulse Ox O2 Delivery O2 Flow Rate FiO2 04/09/18 18:32 99.1 71 16 198/97 98 Room Air Sp02 EP Interpretation: reviewed, normal General Appearance: normal inspection, well appearing, no apparent distress, alert, GCS 15, Chronically Ill Head: atraumatic ENT: normal ENT inspection, hearing grossly normal, normal voice Neck: normal inspection, full range of motion, supple, no bony tend Respiratory: normal inspection, lungs clear, normal breath sounds, no respiratory distress, no retraction, no wheezing Cardiovascular #1: regular rate, rhythm, no edema Gastrointestinal: normal inspection, normal bowel sounds, non tender, soft, no guarding, no hernia Genitourinary: no CVA tenderness Musculoskeletal: normal inspection, back normal, normal range of motion Neurologic: normal inspection, alert, oriented x3, responsive, motor weakness - Generalized weakness, other - Slow speech Psychiatric: normal inspection, judgement/insight normal, mood/affect normal Skin: other - leg ulcers Medical Decision Making Diagnostic Impression: Primary Impression: Hypoglycemia Additional Impression: HTN (hypertension) ER Course Patient presented for altered mental status. Differential diagnosis included but was not limited to ischemic stroke, subarachnoid hemorrhage, hypoglycemia, spinal cord injury, neurodegenerative disorder, urinary tract infection, hypoxemia. Because of complexity of patient's case laboratory testing and imaging studies were ordered. Laboratory studies are notable for mild elevation of the patient's BUN/creatinine. Patient will be on oral hyperglycemics. She was started on IV dextrose containing fluids. Patient's repeat blood sugars appear to be adequate. Given the patient's recent severe hypoglycemia and sulfonurea use patient will be admitted for further evaluation and treatment of hypoglycemia. Dr. Cirilo Blancas was contacted for inpatient management due to primary care physician. Laboratory Tests Test 04/09/18 19:43 04/09/18 20:25 04/09/18 20:40 04/10/18 07:15 White Blood Count 10.2 K/UL (4.8-10.8) Red Blood Count 4.44 M/UL (4.20-5.40) L Hemoglobin 10.1 G/DL (12.0-16.0) L L Hematocrit 33.2 % (37.0-47.0) L Mean Corpuscular Volume 75 FL (80-99) L Mean Corpuscular Hemoglobin 22.7 PG (27.0-31.0) L Mean Corpuscular Hemoglobin Concent 30.4 G/DL (32.0-36.0) L Red Cell Distribution Width 13.8 % (11.6-14.8) Platelet Count 233 K/UL (150-450) Mean Platelet Volume 8.5 FL (6.5-10.1) Neutrophils (%) (Auto) % (45.0-75.0) Lymphocytes (%) (Auto) % (20.0-45.0) Monocytes (%) (Auto) % (1.0-10.0) Basophils (%) (Auto) % (0.0-2.0) Differential Total Cells Counted 100 Neutrophils % (Manual) 85 % (45-75) H Lymphocytes % (Manual) 7 % (20-45) L Monocytes % (Manual) 5 % (1-10) Eosinophils % (Manual) 0 % (0-3) Basophils % (Manual) 0 % (0-2) Band Neutrophils 3 % (0-8) Platelet Estimate Adequate Platelet Morphology Normal Hypochromasia 1+ Anisocytosis 1+ Sodium Level 143 MMOL/L (136-145) Potassium Level 4.6 MMOL/L (3.5-5.1) Chloride Level 108 MMOL/L (98-107) H H Carbon Dioxide Level 25 MMOL/L (21-32) Anion Gap 10 mmol/L (5-15) Blood Urea Nitrogen 29 mg/dL (7-18) H Creatinine 1.4 MG/DL (0.55-1.30) H Estimate Glomerular Filtration Rate 45.1 mL/min (>60) Glucose Level 141 MG/DL (74-106) H Calcium Level 8.7 MG/DL (8.5-10.1) Total Bilirubin 0.4 MG/DL (0.2-1.0) Aspartate Amino Transferase (AST) 36 U/L (15-37) Alanine Aminotransferase (ALT) 27 U/L (12-78) Alkaline Phosphatase 147 U/L (46-116) H Total Creatine Kinase 118 U/L (26-308) Troponin I 0.002 ng/mL (0.000-0.056) Total Protein 7.6 G/DL (6.4-8.2) Albumin 3.0 G/DL (3.4-5.0) L Globulin 4.6 g/dL Albumin/Globulin Ratio 0.7 (1.0-2.7) L Urine Color Pale yellow Urine Appearance Clear Urine pH 7 (4.5-8.0) Urine Specific [place] 1.005 (1.005-1.035) Urine Protein 4+ (NEGATIVE) H Urine Glucose (UA) 1+ (NEGATIVE) H Urine Ketones Negative (NEGATIVE) Urine Blood 1+ (NEGATIVE) H Urine Nitrite Negative (NEGATIVE) Urine Bilirubin Negative (NEGATIVE) Urine Urobilinogen Normal MG/DL (0.0-1.0) Urine Leukocyte Esterase Negative (NEGATIVE) Urine RBC 2-4 /HPF (0 - 2) H Urine WBC 0-2 /HPF (0 - 2) Urine Squamous Epithelial Cells Few /LPF (NONE/OCC) Urine Bacteria Moderate /HPF (NONE) H Lactic Acid Level 0.60 mmol/L (0.4-2.0) Microbiology Date/Time Source Procedure Growth Status 04/09/18 21:18 Nasal Nares Influenza Types A,B Antigen (NATACHA) - Final Complete Last Vital Signs Status: improved Disposition: ADMITTED INPATIENT Condition: Serious Referrals: Cirilo Blancas MD (PCP) Ricky Khan MD Apr 11, 2018 18:15
--- NOTE | 2018-04-11 19:00 | NUR ---
NURSE NOTES: RESTING IN BED . IN NO ACUTE DISTRESS.
--- NOTE | 2018-04-11 19:20 | NUR ---
HAND-OFF: Report given to Ani JONES RN.
--- NOTE | 2018-04-11 19:21 | NUR ---
NURSE NOTES: Report taken from GEORGE Patrick. Patient is A&Ox3, she does get agitated when RN explains medication administration. She is stating that the medications prescribed do not work, which is why she refuses them. 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 Stool sample will be collected by RN if possible during shift. Dressing changed on bilateral cellulitis to 4x4 and niurka. Contacted MD about medication change and orders for medications for cellulitis, awaiting call back. Bed in lowest position, call light within reach.
--- NOTE | 2018-04-11 21:00 | NUR ---
NURSE NOTES: Patient refused insuling coverage with blood sugar of 141. Patient states she follows her home coverage and will not get coverage for below 150. Also refused 2100 heparin injection, stating that she just wants aspirin for prevention of clots. RN explained risk and benefits of both medications to the patient.
--- NOTE | 2018-04-11 21:22 | General Progress Note ---
Assessment/Plan Problem List: (1) anxiety disorder Assessment/Plan Ativan prn the pt was reluctant to take additional meds provided ro/st Subjective 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: Reports: anxiety Allergies: Coded Allergies: No Known Allergies (Unverified , 02/27/18) Subjective the pt cont to be irritable decrease appetite Objective Last 24 Hour Vital Signs Date Time Temp Pulse Resp B/P (MAP) Pulse Ox O2 Delivery O2 Flow Rate FiO2 04/11/18 16:00 97.7 75 18 174/80 (111) 04/11/18 13:25 80 163/70 (101) 04/11/18 12:00 97.6 78 190/84 (119) 04/11/18 11:27 190/84 04/11/18 08:11 Room Air 04/11/18 08:00 98.5 81 19 135/78 (97) 96 04/11/18 04:58 186/83 04/11/18 04:00 98.1 84 19 186/85 (118) 96 04/11/18 00:00 98.4 72 18 166/73 (104) 98 Intake and Output 04/10/18 04/11/18 19:00 07:00 Intake Total 965 ml 400 ml Balance 965 ml 400 ml Intake Oral 590 ml 400 ml IV Total 375 ml # Voids 4 3 Laboratory Tests 04/11/18 08:50: White Blood Count 8.8, Red Blood Count 4.15L, Hemoglobin 9.3L, Hematocrit 30.8L , Mean Corpuscular Volume 74L, Mean Corpuscular Hemoglobin 22.5L, Mean Corpuscular Hemoglobin Concent 30.3L, Red Cell Distribution Width 14.0, Platelet Count 232, Mean Platelet Volume 9.5, Neutrophils (%) (Auto) 62.9, Lymphocytes (%) (Auto) 21.6, Monocytes (%) (Auto) 11.3H, Eosinophils (%) (Auto) 3.1H, Basophils (%) (Auto) 1.1, Sodium Level 142, Potassium Level 4.5, Chloride Level 108H, Carbon Dioxide Level 27, Anion Gap 7, Blood Urea Nitrogen 29H, Creatinine 1.5H, Estimat Glomerular Filtration Rate 41.7, Glucose Level 188H, Calcium Level 8.7, Phosphorus Level 3.3, Magnesium Level 1.8, Total Bilirubin 0.4, Aspartate Amino Transf (AST/SGOT) 25, Alanine Aminotransferase (ALT/SGPT) 26, Alkaline Phosphatase 131H, Total Protein 7.1, Albumin 2.9L, Globulin 4.2, Albumin/Globulin Ratio 0.7L Height (Feet): 5 Height (Inches): 4.00 Weight (Pounds): 210 General Appearance: WD/WN, alert, mild distress Neurologic: oriented x 3, responsive, depressed affect Shayna Thorpe MD Apr 11, 2018 21:22
[2018-04-12] VITALS: BP 162/74
--- NOTE | 2018-04-12 00:33 | Physician Query ---
--------- THIS DOCUMENT IS A PERMANENT PART OF THE MEDICAL RECORD --------- PLEASE COMPLETE DOCUMENT BEFORE SIGNING Dear Dr. Anupama Ambriz__ Date: 04/11/18 Senior Project Architect/CDS Name: MARA Senior Project Architect / CDS Phone # Exercise your independent professional judgment when responding to query. Question asked do not imply a particular answer is desired/expected. Clinical Documentation States: "ACUTE ENCEPHALOPATHY" documented in Dr. Ambriz's Consultation note Clinical Findings Show: Finger Stick Blood Glucose = 30 - given D50 on scene Please indicate the TYPE of ENCEPHALOPATHY below: [] Metabolic Encephalopathy [] Toxic Encephalopathy [] Toxic - Metabolic Encephalopathy [] Progressive Encephalopathy [] Other: [] Not Applicable Condition Present on Admission: [] Yes [] No []Clinically Undeterminable Please also document in your Progress Notes and/or Discharge Summary and indicate if the condition was present on admission. CARLOTA AMBRIZ M.D. DATE & TIME [facility]
[2018-04-12 04:00] VITALS: BP 162/78
[2018-04-12] MEDS: NovoLOG Insulin Flexpen SUBQ SCH ×3 (06:24→16:35)
--- NOTE | 2018-04-12 06:24 | NUR ---
NURSE NOTES: Patient refused insulin coverage for blood glucose of 131. States that she follows her home sliding scale and wont take coverage for anything less than 150. RN explained risks and benefits of medication.
[2018-04-12 07:20] LABS: BASOPHILS % (AUTO) 0.9 % (0.0-2.0); EOSINOPHILS % (AUTO) 3.6 % (0.0-3.0); HEMATOCRIT 28.6 % (37.0-47.0); HEMOGLOBIN 8.6 G/DL (12.0-16.0); LYMPHOCYTES % (AUTO) 21.2 % (20.0-45.0); MEAN CORPUSCULAR VOLUME 74 FL (80-99); MONOCYTES % (AUTO) 11.8 % (1.0-10.0); NEUTROPHILS % (AUTO) 62.4 % (45.0-75.0); PLATELET COUNT 202 K/UL (150-450); RED BLOOD COUNT 3.86 M/UL (4.20-5.40); WHITE BLOOD COUNT 8.1 K/UL (4.8-10.8)
--- NOTE | 2018-04-12 07:22 | NUR ---
HAND-OFF: Report given to GEORGE Patrick.
--- NOTE | 2018-04-12 07:43 | NUR ---
NURSE NOTES: AWAKE/ALERT. NO C/O PAIN. IN NO DISTRESS.
[2018-04-12 07:44] LABS: ANION GAP 9 mmol/L (5-15); BLOOD UREA NITROGEN 30 mg/dL (7-18); CALCIUM 8.8 MG/DL (8.5-10.1); CARBON DIOXIDE 25 MMOL/L (21-32); CHLORIDE 107 MMOL/L (98-107); CREATININE 1.5 MG/DL (0.55-1.30); POTASSIUM 4.3 MMOL/L (3.5-5.1); SODIUM 141 MMOL/L (136-145)
[2018-04-12 07:48] LABS: % IRON SATURATION 11 % (15-50); IRON 31 ug/dL (50-175); TOTAL IRON BINDING CAPACITY 272 ug/dL (250-450)
[2018-04-12 08:00] VITALS: BP 137/90
[2018-04-12] MEDS: Enalapril 5mg tab ORAL SCH (08:28)
[2018-04-12 08:32] LABS: LACTATE DEHYDROGENASE 254 U/L (81-234)
[2018-04-12] MEDS: Heparin 5000 units/ml inj SUBQ SCH (08:32)
[2018-04-12] MEDS: Aspirin EC 81mg tab ORAL SCH (08:33)
--- NOTE | 2018-04-12 11:22 | NUR ---
*-* INSURANCE CLINICALS HAVE BEEN FAXED TO: [facility] [id number] BRENDAM:Tuyet P: [phone] F: [phone]
[2018-04-12 12:00] VITALS: BP 133/85
--- NOTE | 2018-04-12 13:54 | Pulmonology Progress Note ---
Assessment/Plan Problems: (1) Acute encephalopathy (2) Multiple episodes of hypoglycemia (3) Diabetes mellitus, type II (4) anxiety disorder (5) Peripheral neuropathy (6) HTN (hypertension) (7) Venous stasis of lower extremity Assessment/Plan wants to go home improving sliding scale diabetic diet monitor BP pt/ot wound care. Subjective ROS Limited/Unobtainable: No Constitutional: Reports: no symptoms HEENT: Repors: no symptoms Respiratory: Reports: no symptoms Allergies: Coded Allergies: No Known Allergies (Unverified , 02/27/18) Objective Last 24 Hour Vital Signs Date Time Temp Pulse Resp B/P (MAP) Pulse Ox O2 Delivery O2 Flow Rate FiO2 04/12/18 12:00 98.4 74 19 133/85 (101) 97 04/12/18 09:08 Room Air 04/12/18 08:28 137/90 04/12/18 08:00 97.9 85 19 137/90 (106) 97 04/12/18 04:00 98.5 74 18 162/78 (106) 04/12/18 00:00 97.8 80 18 162/74 (103) 04/11/18 21:21 182/74 04/11/18 21:00 Room Air 04/11/18 20:00 98.0 71 19 190/77 (114) 04/11/18 16:00 97.7 75 18 174/80 (111) Intake and Output 04/11/18 04/12/18 18:59 06:59 Intake Total 2005 ml 480 ml Balance 2005 ml 480 ml Intake Oral 1700 ml 480 ml IV Total 305 ml # Voids 2 2 General Appearance: WD/WN HEENT: normocephalic, atraumatic Respiratory/Chest: chest wall non-tender, lungs clear Cardiovascular: normal peripheral pulses, normal rate Abdomen: normal bowel sounds, soft, non tender Genitourinary: normal external genitalia Skin: no rash Microbiology Date/Time Source Procedure Growth Status 04/09/18 19:50 Blood Blood Culture - Preliminary NO GROWTH AFTER 48 HOURS Resulted 04/09/18 19:43 Blood Blood Culture - Preliminary Staphylococcus Sp Coag Neg Resulted 04/09/18 23:30 Nasal Nares MRSA Culture - Final NO METHICILLIN RESISTANT STAPH AUREUS... Complete 04/09/18 21:18 Nasal Nares Influenza Types A,B Antigen (NATACHA) - Final Complete 04/09/18 20:25 Urine,Clean Catch Urine Culture - Final Proteus Mirabilis Complete 04/09/18 23:30 Rectum - Final NO CARBAPENEM-RESISTANT ENTEROBACTERI... Complete 04/09/18 23:30 Rectum VRE Culture - Final NO VANCOMYCIN RESISTANT ENTEROCOCCUS ... Complete Laboratory Tests 04/12/18 06:00: White Blood Count 8.1, Red Blood Count 3.86L, Hemoglobin 8.6L, Hematocrit 28.6L , Mean Corpuscular Volume 74L, Mean Corpuscular Hemoglobin 22.3L, Mean Corpuscular Hemoglobin Concent 30.1L, Red Cell Distribution Width 14.0, Platelet Count 202, Mean Platelet Volume 10.3H, Neutrophils (%) (Auto) 62.4, Lymphocytes (%) (Auto) 21.2, Monocytes (%) (Auto) 11.8H, Eosinophils (%) (Auto) 3.6H, Basophils (%) (Auto) 0.9, Differential Total Cells Counted 100, Neutrophils % (Manual) 67, Lymphocytes % (Manual) 21, Monocytes % (Manual) 10, Eosinophils % (Manual) 1, Basophils % (Manual) 1, Band Neutrophils 0, Platelet Estimate Adequate, Platelet Morphology Normal, Hypochromasia 2+, Microcytosis 2+ , Erythrocyte Sedimentation Rate 72H, Reticulocyte Count 1.0, Prothrombin Time 10.3, Prothromb Time International Ratio 1.0, Activated Partial Thromboplast Time 31, Sodium Level 141, Potassium Level 4.3, Chloride Level 107, Carbon Dioxide Level 25, Anion Gap 9, Blood Urea Nitrogen 30H, Creatinine 1.5H, Estimat Glomerular Filtration Rate 41.7, Glucose Level 125H, Calcium Level 8.8, Iron Level 31L, Total Iron Binding Capacity 272, Percent Iron Saturation 11L, Unsaturated Iron Binding 241, Lactate Dehydrogenase 254H, Carcinoembryonic Antigen [Pending], Vitamin B12 Level 585, Folate 13.1 Current Medications Medications (Trade) Dose Ordered Sig/Alfonso Route PRN Reason Start Time Stop Time Status Last Admin Dose Admin Aspirin (Ecotrin) 81 mg DAILY ORAL 04/10/18 09:00 05/10/18 08:59 04/11/18 08:37 Clonidine HCl (Catapres Tab) 0.1 mg EVERY 6 HOURS PRN ORAL SBP>160 04/10/18 07:00 05/10/18 06:59 04/11/18 11:27 Dextrose (Dextrose 50%) 25 ml Q30M PRN IV Hypoglycemia 04/10/18 07:00 05/10/18 06:59 Dextrose (Dextrose 50%) 50 ml Q30M PRN IV Hypoglycemia 04/10/18 07:00 05/10/18 06:59 Enalapril Maleate (Vasotec) 5 mg DAILY ORAL 04/10/18 13:00 05/10/18 12:59 04/12/18 08:28 Heparin Sodium (Porcine) (Heparin 5000 units/ml) 5,000 units EVERY 12 HOURS SUBQ 04/10/18 09:00 05/10/18 08:59 04/12/18 08:32 Hydralazine HCl (Apresoline) 25 mg DAILY PRN ORAL systolic blood pressure >160 04/10/18 12:30 05/10/18 12:29 04/11/18 21:21 Insulin Aspart (NovoLOG) AC+HS SUBQ 04/10/18 11:30 05/10/18 11:59 04/11/18 16:53 Lorazepam (Ativan) 2 mg Q6H PRN ORAL For Anxiety 04/10/18 21:15 04/17/18 21:14 Vancomycin HCl (Vanco rx to dose) 1 ea DAILY PRN MISC Per rx protocol 04/11/18 12:45 05/11/18 12:44 Vancomycin HCl 1 gm/Sodium Chloride 275 ml @ 183.708 mls/hr Q24H IVPB 04/12/18 15:00 04/17/18 14:59 Dong Ambriz MD Apr 12, 2018 13:54
[2018-04-12] MEDS ORDERED: JANUVIA50 MG ORAL (13:58)
--- NOTE | 2018-04-12 14:56 | Infectious Diseases Prog Note ---
Assessment/Plan Assessment/Plan Abx: Cefepime 04/11- Assessment: Afebrile No leukocytosis Bacteriuria, assymptomatic -u/a neg; ucx 60-70k P. mirabilis (R nitrofurantoin, otherwise S) Gram positive bacteremia- likely contaminant vs real -Bcx 03/30 CONS; repeat Bcx 04/11 p Acute encephalopathy 2ry to hypoglycemia Dm2 HTN chronic venous stasis b/L LE hx of RLE cellulitis Plan: -Cont empiric IV Vancomcycin #2 pending repeat Bcx -04/11 SP Cefepime #1 -f/u repeat Bcx x2 -f/u cx -Monitor CBC/CMP, temperatures -aspiration precautions Thank you for this consultation. Will continue to follow along with you. Discussed with RN. Subjective Allergies: Coded Allergies: No Known Allergies (Unverified , 02/27/18) Subjective afebrile repeat bcx p Objective Vital Signs Last 24 Hour Vital Signs Date Time Temp Pulse Resp B/P (MAP) Pulse Ox O2 Delivery O2 Flow Rate FiO2 04/12/18 12:00 98.4 74 19 133/85 (101) 97 04/12/18 09:08 Room Air 04/12/18 08:28 137/90 04/12/18 08:00 97.9 85 19 137/90 (106) 97 04/12/18 04:00 98.5 74 18 162/78 (106) 04/12/18 00:00 97.8 80 18 162/74 (103) 04/11/18 21:21 182/74 04/11/18 21:00 Room Air 04/11/18 20:00 98.0 71 19 190/77 (114) 04/11/18 16:00 97.7 75 18 174/80 (111) Height (Feet): 5 Height (Inches): 4.00 Weight (Pounds): 210 Objective GENERAL: The patient is a well-developed and well-nourished female, in no apparent distress. HEENT: Eyes, pupils are equal and responsive to light and accommodation. Extraocular movements are intact. NECK: Supple without lymphadenopathy. CHEST: Lungs are clear to auscultation bilaterally without wheezes or rales. CARDIOVASCULAR: Regular rhythm and rate. S1 and S2 are normal without murmurs, rubs, or gallops. ABDOMEN: Soft, nontender, and nondistended, but positive bowel sounds. No evidence of hepatosplenomegaly. Currently, no rebound or guarding noted. EXTREMITIES: Negative for clubbing, cyanosis, or edema. Microbiology Date/Time Source Procedure Growth Status 04/09/18 19:50 Blood Blood Culture - Preliminary NO GROWTH AFTER 48 HOURS Resulted 04/09/18 19:43 Blood Blood Culture - Preliminary Staphylococcus Sp Coag Neg Resulted 04/09/18 23:30 Nasal Nares MRSA Culture - Final NO METHICILLIN RESISTANT STAPH AUREUS... Complete 04/09/18 21:18 Nasal Nares Influenza Types A,B Antigen (NATACHA) - Final Complete 04/09/18 20:25 Urine,Clean Catch Urine Culture - Final Proteus Mirabilis Complete 04/09/18 23:30 Rectum - Final NO CARBAPENEM-RESISTANT ENTEROBACTERI... Complete 04/09/18 23:30 Rectum VRE Culture - Final NO VANCOMYCIN RESISTANT ENTEROCOCCUS ... Complete Laboratory Tests Test 04/12/18 06:00 White Blood Count 8.1 K/UL (4.8-10.8) Red Blood Count 3.86 M/UL (4.20-5.40) L Hemoglobin 8.6 G/DL (12.0-16.0) L Hematocrit 28.6 % (37.0-47.0) L Mean Corpuscular Volume 74 FL (80-99) L Mean Corpuscular Hemoglobin 22.3 PG (27.0-31.0) L Mean Corpuscular Hemoglobin Concent 30.1 G/DL (32.0-36.0) L Red Cell Distribution Width 14.0 % (11.6-14.8) Platelet Count 202 K/UL (150-450) Mean Platelet Volume 10.3 FL (6.5-10.1) H Neutrophils (%) (Auto) 62.4 % (45.0-75.0) Lymphocytes (%) (Auto) 21.2 % (20.0-45.0) Monocytes (%) (Auto) 11.8 % (1.0-10.0) H Eosinophils (%) (Auto) 3.6 % (0.0-3.0) H Basophils (%) (Auto) 0.9 % (0.0-2.0) Differential Total Cells Counted 100 Neutrophils % (Manual) 67 % (45-75) Lymphocytes % (Manual) 21 % (20-45) Monocytes % (Manual) 10 % (1-10) Eosinophils % (Manual) 1 % (0-3) Basophils % (Manual) 1 % (0-2) Band Neutrophils 0 % (0-8) Platelet Estimate Adequate Platelet Morphology Normal Hypochromasia 2+ Microcytosis 2+ Erythrocyte Sedimentation Rate 72 MM/HR (0-30) H Reticulocyte Count 1.0 % (0.0-2.0) Prothrombin Time 10.3 SEC (9.30-11.50) Prothromb Time International Ratio 1.0 (0.9-1.1) Activated Partial Thromboplast Time 31 SEC (23-33) Sodium Level 141 MMOL/L (136-145) Potassium Level 4.3 MMOL/L (3.5-5.1) Chloride Level 107 MMOL/L (98-107) Carbon Dioxide Level 25 MMOL/L (21-32) Anion Gap 9 mmol/L (5-15) Blood Urea Nitrogen 30 mg/dL (7-18) H Creatinine 1.5 MG/DL (0.55-1.30) H Estimat Glomerular Filtration Rate 41.7 mL/min (>60) Glucose Level 125 MG/DL (74-106) H Calcium Level 8.8 MG/DL (8.5-10.1) Iron Level 31 ug/dL (50-175) L Total Iron Binding Capacity 272 ug/dL (250-450) Percent Iron Saturation 11 % (15-50) L Unsaturated Iron Binding 241 ug/dL (112-346) Lactate Dehydrogenase 254 U/L (81-234) H Carcinoembryonic Antigen Pending Vitamin B12 Level 585 PG/ML (193-986) Folate 13.1 NG/ML (8.6-58.9) Current Medications Medications (Trade) Dose Ordered Sig/Alfonso Route PRN Reason Start Time Stop Time Status Last Admin Dose Admin Aspirin (Ecotrin) 81 mg DAILY ORAL 04/10/18 09:00 05/10/18 08:59 04/11/18 08:37 Clonidine HCl (Catapres Tab) 0.1 mg EVERY 6 HOURS PRN ORAL SBP>160 04/10/18 07:00 05/10/18 06:59 04/11/18 11:27 Dextrose (Dextrose 50%) 25 ml Q30M PRN IV Hypoglycemia 04/10/18 07:00 05/10/18 06:59 Dextrose (Dextrose 50%) 50 ml Q30M PRN IV Hypoglycemia 04/10/18 07:00 05/10/18 06:59 Enalapril Maleate (Vasotec) 5 mg DAILY ORAL 04/10/18 13:00 05/10/18 12:59 04/12/18 08:28 Heparin Sodium (Porcine) (Heparin 5000 units/ml) 5,000 units EVERY 12 HOURS SUBQ 04/10/18 09:00 05/10/18 08:59 04/12/18 08:32 Hydralazine HCl (Apresoline) 25 mg DAILY PRN ORAL systolic blood pressure >160 04/10/18 12:30 05/10/18 12:29 04/11/18 21:21 Insulin Aspart (NovoLOG) AC+HS SUBQ 04/10/18 11:30 05/10/18 11:59 04/11/18 16:53 Lorazepam (Ativan) 2 mg Q6H PRN ORAL For Anxiety 04/10/18 21:15 04/17/18 21:14 Sitagliptin Phosphate (Januvia) 25 mg ACBREAKFAST ORAL 04/13/18 06:30 05/13/18 06:29 Vancomycin HCl (Vanco rx to dose) 1 ea DAILY PRN MISC Per rx protocol 04/11/18 12:45 05/11/18 12:44 Vancomycin HCl 1 gm/Sodium Chloride 275 ml @ 183.708 mls/hr Q24H IVPB 04/12/18 15:00 04/17/18 14:59 Doris Plummer M.D. Apr 12, 2018 14:56
[2018-04-12] MEDS ORDERED: Vancomycin 1 GM in NS 275 ML IVPB SCH (15:00)
--- NOTE | 2018-04-12 15:57 | NUR ---
CASE MANAGEMENT: REVIEW SI: ACUTE ENCEPHALOPATHY . DM II T 98.4 HR 85 RR 19 BP 162/74 SAT 97% ROOM AIR GLUCOSE 125 IS: VASOTEC PO TD NOVOLOG SQ AC/HS JANUVIA PO QD MED/SURG STATUS DCP: PATIENT IS FROM HOME. HOME WITH HOME HEALTH
[2018-04-12 16:00] VITALS: BP 156/54
--- NOTE | 2018-04-12 16:00 | NUR ---
CASE MANAGEMENT: DCPNOTE UPON DISCHARGE PATIENT TO TRANSFER TO HOME WITH HOME HEALTH PER INSURANCE COMPANY ARRANGEMENT WILL BE MADE DIRECTLY WITH THE PATIENT ORDER FAXED TO [facility]: [address] [phone] / [phone] FAX
--- NOTE | 2018-04-12 16:48 | Internal Med Progress Note ---
Subjective Date of Service: Apr 12, 2018 Physician Name Jony Cardona Attending Physician Cirilo Blancas MD Current Medications Medications (Trade) Dose Ordered Sig/Alfonso Route PRN Reason Start Time Stop Time Status Last Admin Dose Admin Aspirin (Ecotrin) 81 mg DAILY ORAL 04/10/18 09:00 05/10/18 08:59 04/11/18 08:37 Clonidine HCl (Catapres Tab) 0.1 mg EVERY 6 HOURS PRN ORAL SBP>160 04/10/18 07:00 05/10/18 06:59 04/11/18 11:27 Dextrose (Dextrose 50%) 25 ml Q30M PRN IV Hypoglycemia 04/10/18 07:00 05/10/18 06:59 Dextrose (Dextrose 50%) 50 ml Q30M PRN IV Hypoglycemia 04/10/18 07:00 05/10/18 06:59 Enalapril Maleate (Vasotec) 5 mg DAILY ORAL 04/10/18 13:00 05/10/18 12:59 04/12/18 08:28 Heparin Sodium (Porcine) (Heparin 5000 units/ml) 5,000 units EVERY 12 HOURS SUBQ 04/10/18 09:00 05/10/18 08:59 04/12/18 08:32 Hydralazine HCl (Apresoline) 25 mg DAILY PRN ORAL systolic blood pressure >160 04/10/18 12:30 05/10/18 12:29 04/11/18 21:21 Insulin Aspart (NovoLOG) AC+HS SUBQ 04/10/18 11:30 05/10/18 11:59 04/12/18 16:35 Lorazepam (Ativan) 2 mg Q6H PRN ORAL For Anxiety 04/10/18 21:15 04/17/18 21:14 Sitagliptin Phosphate (Januvia) 25 mg ACBREAKFAST ORAL 04/13/18 06:30 05/13/18 06:29 Vancomycin HCl (Vanco rx to dose) 1 ea DAILY PRN MISC Per rx protocol 04/11/18 12:45 05/11/18 12:44 Vancomycin HCl 1 gm/Sodium Chloride 275 ml @ 183.708 mls/hr Q24H IVPB 04/12/18 15:00 04/17/18 14:59 04/12/18 14:50 Allergies: Coded Allergies: No Known Allergies (Unverified , 02/27/18) ROS Limited/Unobtainable: No Constitutional: Reports: no symptoms HEENT: Reports: no symptoms Cardiovascular: Reports: no symptoms Respiratory: Reports: no symptoms Gastrointestinal/Abdominal: Reports: no symptoms Genitourinary: Reports: no symptoms 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: Reports: no symptoms Subjective 72 YO F with history of diabetes admitted with hypoglycemia. Await endocrinology consult. Now UTI and bacteremia. Cover for Int med-Dr Blancas Objective Last Vital Signs Date Time Temp Pulse Resp B/P (MAP) Pulse Ox O2 Delivery O2 Flow Rate FiO2 04/12/18 16:00 98.6 76 19 156/54 (88) 98 04/12/18 09:08 Room Air Laboratory Tests Test 04/12/18 06:00 White Blood Count 8.1 K/UL (4.8-10.8) Red Blood Count 3.86 M/UL (4.20-5.40) L Hemoglobin 8.6 G/DL (12.0-16.0) L Hematocrit 28.6 % (37.0-47.0) L Mean Corpuscular Volume 74 FL (80-99) L Mean Corpuscular Hemoglobin 22.3 PG (27.0-31.0) L Mean Corpuscular Hemoglobin Concent 30.1 G/DL (32.0-36.0) L Red Cell Distribution Width 14.0 % (11.6-14.8) Platelet Count 202 K/UL (150-450) Mean Platelet Volume 10.3 FL (6.5-10.1) H Neutrophils (%) (Auto) 62.4 % (45.0-75.0) Lymphocytes (%) (Auto) 21.2 % (20.0-45.0) Monocytes (%) (Auto) 11.8 % (1.0-10.0) H Eosinophils (%) (Auto) 3.6 % (0.0-3.0) H Basophils (%) (Auto) 0.9 % (0.0-2.0) Differential Total Cells Counted 100 Neutrophils % (Manual) 67 % (45-75) Lymphocytes % (Manual) 21 % (20-45) Monocytes % (Manual) 10 % (1-10) Eosinophils % (Manual) 1 % (0-3) Basophils % (Manual) 1 % (0-2) Band Neutrophils 0 % (0-8) Platelet Estimate Adequate Platelet Morphology Normal Hypochromasia 2+ Microcytosis 2+ Erythrocyte Sedimentation Rate 72 MM/HR (0-30) H Reticulocyte Count 1.0 % (0.0-2.0) Prothrombin Time 10.3 SEC (9.30-11.50) Prothromb Time International Ratio 1.0 (0.9-1.1) Activated Partial Thromboplast Time 31 SEC (23-33) Sodium Level 141 MMOL/L (136-145) Potassium Level 4.3 MMOL/L (3.5-5.1) Chloride Level 107 MMOL/L (98-107) Carbon Dioxide Level 25 MMOL/L (21-32) Anion Gap 9 mmol/L (5-15) Blood Urea Nitrogen 30 mg/dL (7-18) H Creatinine 1.5 MG/DL (0.55-1.30) H Estimat Glomerular Filtration Rate 41.7 mL/min (>60) Glucose Level 125 MG/DL (74-106) H Calcium Level 8.8 MG/DL (8.5-10.1) Iron Level 31 ug/dL (50-175) L Total Iron Binding Capacity 272 ug/dL (250-450) Percent Iron Saturation 11 % (15-50) L Unsaturated Iron Binding 241 ug/dL (112-346) Lactate Dehydrogenase 254 U/L (81-234) H Carcinoembryonic Antigen Pending Vitamin B12 Level 585 PG/ML (193-986) Folate 13.1 NG/ML (8.6-58.9) Microbiology Date/Time Source Procedure Growth Status 04/09/18 19:50 Blood Blood Culture - Preliminary NO GROWTH AFTER 48 HOURS Resulted 04/09/18 19:43 Blood Blood Culture - Preliminary Staphylococcus Sp Coag Neg Resulted 04/09/18 23:30 Nasal Nares MRSA Culture - Final NO METHICILLIN RESISTANT STAPH AUREUS... Complete 04/09/18 21:18 Nasal Nares Influenza Types A,B Antigen (NATACHA) - Final Complete 04/09/18 20:25 Urine,Clean Catch Urine Culture - Final Proteus Mirabilis Complete 04/09/18 23:30 Rectum - Final NO CARBAPENEM-RESISTANT ENTEROBACTERI... Complete 04/09/18 23:30 Rectum VRE Culture - Final NO VANCOMYCIN RESISTANT ENTEROCOCCUS ... Complete Intake and Output 04/11/18 04/12/18 19:00 07:00 Intake Total 2005 ml 480 ml Balance 2005 ml 480 ml Intake Oral 1700 ml 480 ml IV Total 305 ml # Voids 2 2 Objective General Appearance: WD/WN, no apparent distress, alert EENT: PERRL/EOMI, normal ENT inspection Neck: non-tender, normal alignment, supple, normal inspection Cardiovascular: normal peripheral pulses, normal rate, regular rhythm, no gallop/murmur, no JVD Respiratory/Chest: chest wall non-tender, lungs clear, normal breath sounds, no respiratory distress, no accessory muscle use Abdomen: normal bowel sounds, non tender, soft, no organomegaly, no mass Extremities: normal range of motion, non-tender Neurologic: mix house operator 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 normal, no motor/sensory deficits Skin: normal pigmentation, warm/dry Assessment/Plan Problem List: (1) Altered mental status Assessment & Plan: Due to hypoglycemia (2) Hypoglycemia Assessment & Plan: Hold glipizide. Start novolog sliding scale. Await endocrinology consult. (3) Diabetes mellitus type II, uncontrolled Assessment & Plan: Hold glipizide due to hypoglycemia. Continue novolog sliding scale. (4) HTN (hypertension) Assessment & Plan: Continue vasotec ant hydralazine (5) Venous stasis of lower extremity (6) UTI (urinary tract infection) Assessment & Plan: Gram neg sang. Start Cefepime. Await Culture result. ID consult (7) Bacteremia Assessment & Plan: Gram pos cocci. Start cefepime. Await blood culture result. ID consult Status: Jony Caicedo MD Apr 12, 2018 16:48
[2018-04-12] MEDS ORDERED: Tubing IV Secondary IV ONE (18:29)
--- NOTE | 2018-04-12 18:33 | NUR ---
NURSE NOTES: DISCHARGED HOME PER WHEELCHAIR ACCPD BY SON IN STABLE CONDITION.DC INSTRUCTIONS AND RX GIVEN.
--- NOTE | 2018-04-12 23:45 | General Progress Note ---
Assessment/Plan Problem List: (1) anxiety disorder Assessment/Plan Ativan prn the pt was reluctant to take additional meds provided ro/st Subjective 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: Reports: anxiety, depressed, emotional problems Allergies: Coded Allergies: No Known Allergies (Unverified , 02/27/18) Subjective the pt cont to be irritable decrease appetite Objective Last 24 Hour Vital Signs Date Time Temp Pulse Resp B/P (MAP) Pulse Ox O2 Delivery O2 Flow Rate FiO2 04/12/18 16:00 98.6 76 19 156/54 (88) 98 04/12/18 12:00 98.4 74 19 133/85 (101) 97 04/12/18 09:08 Room Air 04/12/18 08:28 137/90 04/12/18 08:00 97.9 85 19 137/90 (106) 97 04/12/18 04:00 98.5 74 18 162/78 (106) 04/12/18 00:00 97.8 80 18 162/74 (103) Intake and Output 04/11/18 04/12/18 19:00 07:00 Intake Total 2005 ml 480 ml Balance 2005 ml 480 ml Intake Oral 1700 ml 480 ml IV Total 305 ml # Voids 2 2 Laboratory Tests 04/12/18 06:00: White Blood Count 8.1, Red Blood Count 3.86L, Hemoglobin 8.6L, Hematocrit 28.6L , Mean Corpuscular Volume 74L, Mean Corpuscular Hemoglobin 22.3L, Mean Corpuscular Hemoglobin Concent 30.1L, Red Cell Distribution Width 14.0, Platelet Count 202, Mean Platelet Volume 10.3H, Neutrophils (%) (Auto) 62.4, Lymphocytes (%) (Auto) 21.2, Monocytes (%) (Auto) 11.8H, Eosinophils (%) (Auto) 3.6H, Basophils (%) (Auto) 0.9, Differential Total Cells Counted 100, Neutrophils % (Manual) 67, Lymphocytes % (Manual) 21, Monocytes % (Manual) 10, Eosinophils % (Manual) 1, Basophils % (Manual) 1, Band Neutrophils 0, Platelet Estimate Adequate, Platelet Morphology Normal, Hypochromasia 2+, Microcytosis 2+ , Erythrocyte Sedimentation Rate 72H, Reticulocyte Count 1.0, Prothrombin Time 10.3, Prothromb Time International Ratio 1.0, Activated Partial Thromboplast Time 31, Sodium Level 141, Potassium Level 4.3, Chloride Level 107, Carbon Dioxide Level 25, Anion Gap 9, Blood Urea Nitrogen 30H, Creatinine 1.5H, Estimat Glomerular Filtration Rate 41.7, Glucose Level 125H, Calcium Level 8.8, Iron Level 31L, Total Iron Binding Capacity 272, Percent Iron Saturation 11L, Unsaturated Iron Binding 241, Lactate Dehydrogenase 254H, Carcinoembryonic Antigen [Pending], Vitamin B12 Level 585, Folate 13.1 Height (Feet): 5 Height (Inches): 4.00 Weight (Pounds): 210 General Appearance: no apparent distress, alert Shayna Thorpe MD Apr 12, 2018 23:45
[2018-04-13] MEDS ORDERED: sitaGLIPtin 25mg tab ORAL SCH (06:30)
--- NOTE | 2018-04-13 11:36 | Discharge Summary ---
Discharge Summary Discharge Summary _ DATE OF ADMISSION: 04/09/2018 DATE OF DISCHARGE: 04/12/2018 ADMITTED BY: Dr. Cirilo Blancas DISCHARGED BY: Dr. Dong Ambriz CONSULTANTS: Dr. Dong Blood [facility] COURSE: Patient is a 72-year-old -[place] female, who presented with chief complaint of altered mental status and hypoglycemia. History of present illness is started on 04/09/2018. Patient took her glipizide as usual. She had physical therapy at home. She had breakfast around 10 in the morning. Physical therapist left around 2 PM. The patient did not remember anything between 2 PM and when the son arrived at 7 PM. Apparently she was found unconscious by the son and 911 was called. She was noted to have fingerstick blood glucose of 30. She was given D50 in the field. She has medical history significant for diabetes type 2, hypertension, chronic venous stasis and cellulitis of the right lower extremity. On evaluation at the ED, blood pressure was elevated to 198/97, heart rate 71. Blood work did not show any leukocytosis, hemoglobin was 10, hematocrit 33. Blood glucose was 141. BUN was elevated to 29, creatinine to 1.4. Troponin was negative. Showed 4+ protein, 1+ glucose, 1+ blood, 2-4 RBC, 0-2 WBC, negative nitrite. She was started on IV dextrose. She was then admitted for evaluation of encephalopathy, hypoglycemia and hypertension. Explosives Handler was consulted. Patient has a history of diabetes mellitus on glipizide monotherapy as outpatient. Glipizide was placed on hold. Recommend to discontinue sulfonylurea due to hypoglycemia. Blood glucose was monitored. Hemoglobin A1c 9.7. Blood pressure was elevated. She was given enalapril and hydralazine. She was continued on aspirin. Blood pressure improved. ID was consulted. Patient has bacteriuria however was asymptomatic. Urine culture showed growth of Proteus mirabilis with 60,000-70,000 counts. She was initially given cefepime. Blood culture was growing gram-positive cocci. She was started on vancomycin. Cefepime was discontinued as patient was asymptomatic. Blood culture was reordered. Psychiatric evaluation was done. Patient was irritable and had decreased appetite. He was given Ativan. She was reluctant to take additional meds. Repeat blood culture did not isolate any growth. She was started on Januvia. She was tolerating diet well. She was eventually discharged home. FINAL DIAGNOSES: Acute encephalopathy due to hypoglycemia Glycemia due to glipizide Diabetes mellitus type 2, out of control Anxiety disorder Hypertension Venous stasis of bilateral lower extremity Urinary tract infection with gram-negative rods Peripheral neuropathy Bacteremia likely contaminant versus real DISPOSITION: Patient was discharged home with home health. DISCHARGE MEDICATIONS: Refer to Discharge Medication List. DISCHARGE INSTRUCTIONS: Follow-up with Dr. Blancas in a week. I have been assigned to dictate discharge summary on this account, and I was not involved in the patient's management. Carolyn Patterson NP Apr 13, 2018 11:36
== END 2018-04-12 18:30 | disposition home health service (06) | DRG 638 ==
LOC: EDBD 18:38 → EMR 20:20 → EDBEDREQ 20:52 → 3E 21:30 → EDBEDREQ 22:03
DX: E11.649 Type 2 diabetes mellitus with hypoglycemia without coma (principal); G93.40 Encephalopathy, unspecified; N39.0 Urinary tract infection, site not specified; E11.42 Type 2 diabetes mellitus with diabetic polyneuropathy; I87.2 Venous insufficiency (chronic) (peripheral); F41.9 Anxiety disorder, unspecified; I12.9 Hypertensive chronic kidney disease with stage 1 through stage 4 chronic kidney disease, or unspecified chronic kidney disease; E11.22 Type 2 diabetes mellitus with diabetic chronic kidney disease; N18.9 Chronic kidney disease, unspecified; Z79.82 Long term (current) use of aspirin; Z79.84 Long term (current) use of oral hypoglycemic drugs; T38.3X5A Adverse effect of insulin and oral hypoglycemic [antidiabetic] drugs, initial encounter; Y92.9 Unspecified place or not applicable
CPT/HCPCS: 36415; 71045; 80048; 80053; 81003; 82378; 82550; 82607; 82746; 82962; 83036; 83540; 83550; 83605; 83615; 83735; 84100; 84484; 85007; 85025; 85044; 85060; 85610; 85651; 85730; 86710; 87040; 87081; 87086; 87181; 93005; 99285; J1815

== ENCOUNTER 2018-10-04 23:35 | Inpatient (IN) | payer MEDICARE ==
[~2018-10-04] VITALS: Ht 162.6 cm; Wt 83.9 kg
[~2018-10-04 23:35] MED LIST changes: +ENALAPRIL MALEAT5 MG ORAL; +HYDRALAZINE HCL25 M1 ORAL; +JANUVIA50 MG ORAL
[2018-10-04 23:45] VITALS: BP 154/85
--- NOTE | 2018-10-04 23:45 | NUR ---
Note mejiaesa in EDM - 10/05/18 at 0429 by ROSANNE ED Nurse Note: Patient walked into ED c/o generalized weakness for the past 3 days. at time of arrival patient is warm to touch. Son states that the patient has been feeling weak. patient is alert and oriented x4. patient was wheelchaired into ED
--- NOTE | 2018-10-04 23:46 | NUR ---
ED Nurse Note: patient presents with bilateral leg welling, states that she has no idea how they appeared, started appearing about 1 week ago
[2018-10-05] VITALS (7 sets, daily range): BP systolic 129–186; BP diastolic 53–104
[2018-10-05] MEDS ORDERED: Acetaminophen 500mg (ES) tab ORAL ONE
[2018-10-05 00:53] LABS: HEMATOCRIT 32.7 % (37.0-47.0); HEMOGLOBIN 9.9 G/DL (12.0-16.0); MEAN CORPUSCULAR VOLUME 75 FL (80-99); PLATELET COUNT 260 K/UL (150-450); RED BLOOD COUNT 4.35 M/UL (4.20-5.40); RED CELL DISTRIBUTION WIDTH 13.4 % (11.6-14.8); WHITE BLOOD COUNT 20.3 K/UL (4.8-10.8)
[2018-10-05 01:01] LABS: ANION GAP 9 mmol/L (5-15); BLOOD UREA NITROGEN 38 mg/dL (7-18); CALCIUM 9.3 MG/DL (8.5-10.1); CARBON DIOXIDE 27 MMOL/L (21-32); CHLORIDE 105 MMOL/L (98-107); CREATININE 1.7 MG/DL (0.55-1.30); POTASSIUM 4.3 MMOL/L (3.5-5.1); SODIUM 140 MMOL/L (136-145)
[2018-10-05 01:03] LABS: APPEARANCE,URINE SLIGHTLY CLOUDY; BILIRUBIN, URINE NEGATIVE (NEGATIVE); COLOR,URINE PALE YELLOW; GLUCOSE, URINE (UA) 2+ (NEGATIVE); KETONES,URINE NEGATIVE (NEGATIVE); LEUKOCYTE ESTERASE ,URINE NEGATIVE (NEGATIVE); NITRITE,URINE NEGATIVE (NEGATIVE); PH,URINE 6 (4.5-8.0); PROTEIN,URINE 4+ (NEGATIVE); UROBILINOGEN,URINE NORMAL MG/DL (0.0-1.0)
[2018-10-05 01:15] LABS: ALANINE AMINOTRANSFERASE 13 U/L (12-78); ALBUMIN 2.5 G/DL (3.4-5.0); ALBUMIN/GLOBULIN RATIO 0.4 (1.0-2.7); ALKALINE PHOSPHATASE 114 U/L (46-116); ASPARTATE AMINO TRANSFERASE 23 U/L (15-37); BILIRUBIN,TOTAL 0.4 MG/DL (0.2-1.0); CKMB 0.6 NG/ML (0.0-3.6); CREATINE KINASE 90 U/L (26-308)
[2018-10-05] MEDS ORDERED: Azithromycin 250mg tab ORAL ONE (01:15)
[2018-10-05] MEDS ORDERED: cefTRIAXone 1 GM in NS 55 ML IVPB ONE (01:15)
--- NOTE | 2018-10-05 02:02 | NUR ---
Note marc in EDM - 10/05/18 at 0430 by ROSANNE ED Nurse Note: Patient in bed in semi felder position. VSS. Fluid stil
--- NOTE | 2018-10-05 02:02 | NUR ---
Note marc in EDM - 10/05/18 at 0432 by MIKAO ED Nurse Note: Pt in be resting
--- NOTE | 2018-10-05 02:02 | NUR ---
ED Nurse Note: Pt resting in bed in semi felder position. VVS
--- NOTE | 2018-10-05 02:02 | NUR ---
ED Nurse Note: Pt in be resting
--- NOTE | 2018-10-05 02:21 | NUR ---
ED Nurse Note: patient asleep in bed. no distress noted
--- NOTE | 2018-10-05 02:43 | Emergency Room Report ---
History of Present Illness General Chief Complaint: Nausea Source: Patient, Family Member Present Illness HPI This is 73-year-old female with history of diabetes. She presents with chief complaint of dizziness weakness and altered mental status. Her son, she had a cough for a week but nonproductive nature. Last night she has shaking chills and felt weak. Today blood sugar was in the 400. Patient felt weak and dizzy. No focal deficit. Also with chills. No nausea no vomiting. No diarrhea Allergies: Coded Allergies: No Known Allergies (Unverified , 02/27/18) Patient History Past Medical History: see triage record, old chart reviewed, DM Past Surgical History: other Pertinent Family History: none Social History: Denies: smoking Now: No Immunizations: other Reviewed Nursing Documentation: PMH: Agreed; PSxH: Agreed Nursing Documentation-PMH Hx Cardiac Problems: Yes Hx Hypertension: Yes Hx Asthma: No Hx Diabetes: Yes Hx Cancer: No Hx Gastrointestinal Problems: No Hx Neurological Problems: No Hx Peripheral Neuropathy: Yes - S/P RIGHT FOOT SURGERY 02/2013 Review of Systems Constitutional: Reports: chills, fever, malaise, weakness Eye: Denies: eye pain, blurred vision ENT: Denies: ear pain, nose congestion, throat swelling Respiratory: Denies: cough, shortness of breath Cardiovascular: Denies: chest pain, palpitations Gastrointestinal: Denies: abdominal pain, diarrhea, nausea, vomiting Musculoskeletal: Denies: back pain, joint pain Skin: Denies: rash Neurological: Denies: headache, numbness Endocrine: Denies: increased thirst, increased urine Hematologic/Lymphatic: Denies: easy bruising All Other Systems: negative except mentioned in HPI Physical Exam Vital Signs Date Time Temp Pulse Resp B/P (MAP) Pulse Ox O2 Delivery O2 Flow Rate FiO2 10/04/18 23:43 98.6 106 16 154/85 (108) 98 Room Air Vitals with high blood pressure. Repeat temperature 101 Sp02 EP Interpretation: reviewed, normal General Appearance: well appearing, no apparent distress, alert Head: normocephalic, atraumatic Eyes: bilateral eye PERRL, bilateral eye EOMI ENT: hearing grossly normal, normal pharynx Neck: full range of motion, supple, no meningismus Respiratory: chest non-tender, lungs clear, normal breath sounds Cardiovascular #1: regular rate, rhythm, no murmur Gastrointestinal: normal bowel sounds, non tender, no mass, no organomegaly, no bruit, non-distended Musculoskeletal: back normal, gait/station normal, normal range of motion Neurologic: grossly normal - Confused Psychiatric: mood/affect normal Medical Decision Making Diagnostic Impression: Primary Impression: Acute encephalopathy Additional Impressions: Sepsis Qualified Codes: A41.9 - Sepsis, unspecified organism UTI (urinary tract infection) Qualified Codes: N30.00 - Acute cystitis without hematuria Anemia Qualified Codes: D64.9 - Anemia, unspecified [place] (acute kidney injury) ER Course Patient presents with altered mental status secondary to infectious cause. She does have a high white count and source is her urine. She grew out Proteus mirabilis in the past. Sensitive to Rocephin. I added azithromycin to cover for possible pneumonia with her previous cough. Chest x-ray unremarkable however. She is hypoxic here. No respiratory distress. Mental status improved after IV fluid and Tylenol. Will admit versus transfer based on insurance. Sepsis reevaluation: Vitals: Heart rate improved. Afebrile. General: More alert. No confusion. Cardiovascular: Heart rate normal. Good capillary refill. Lungs: Good air movement. Clear. Abdomen: Soft nontender Extremities: No edema Skin: No mottling Discussed the case with Dr. Torres who accepted pt for transfer to [facility]. Patient was unable to be transferred in a timely manner. She will be admitted here under the service of Dr. Blancas. Lab Results Impression Labs with leukocytosis EKG Diagnostic Results Rate: tachycardiac Rhythm: NSR ST Segments: no acute changes Rhythm Strip Diag. Results EP Interpretation: yes Rate: 80 Rhythm: NSR, no PVC's, no ectopy Chest X-Ray Diagnostic Results Chest X-Ray Diagnostic Results : Chest X-Ray Ordered: Yes # of Views/Limited/Complete: 1 View Indication: Shortness of Breath EP Interpretation: Yes Interpretation: no consolidation, no effusion, no pneumothorax, no acute cardiopulmonary disease Impression: No acute disease Electronically Signed by: Devan Flaherty MD Last Vital Signs Date Time Temp Pulse Resp B/P (MAP) Pulse Ox O2 Delivery O2 Flow Rate FiO2 10/05/18 02:21 97.9 88 16 144/82 98 Room Air Status: improved Disposition: ADMITTED INPATIENT Condition: Serious Referrals: Cirilo Blancas MD (PCP) Devan Flaherty MD Oct 05, 2018 02:43
--- NOTE | 2018-10-05 04:05 | NUR ---
Will- daughter's son Addendum: 10/05/18 at 0405 by KEESHARENTEJONAH [phone] Will-patient's son
--- NOTE | 2018-10-05 04:32 | NUR ---
ED Nurse Note: Pt appears to be sleeping in bed. VSS
--- NOTE | 2018-10-05 06:00 | NUR ---
NURSE NOTES: Pt brought to room 237-2 by 2 RN, 1 coagulating bath mixer via [employer]. routine admission care provided. S 136/70, 97.9, 16, denies any pain at this time. IV site noted to left hand 20g and is intact. no SOB noted at this time. Patient is on room air. Bed is in lowest position. Call light is within easy reach while in bed. Will continue to monitor.
--- NOTE | 2018-10-05 06:00 | NUR ---
TRANSFER TO FLOOR: Patient transferred to SDU-Overflow, Telemetry as ordered, per . Report given to GEORGE Pickering
--- NOTE | 2018-10-05 06:17 | NUR ---
NURSE NOTES: Paged Dr Blancas for admission order. Currently awaiting for call back.
--- NOTE | 2018-10-05 06:59 | NUR ---
NURSE NOTES: Report given to Ursula Rodriguez RN
--- NOTE | 2018-10-05 07:00 | NUR ---
NURSE NOTES: received patient report from raysa camara. patient is on bed asleep. no arrythmias reported during the night.not in acute distress. bed is low and locked for safety.will follow plan of care.
[2018-10-05] MEDS ORDERED: HYDROcodone/Acetamin 5/325 tab ORAL PRN (09:00)
[2018-10-05] MEDS: Azithromycin 250mg tab ORAL SCH (09:30)
[2018-10-05] MEDS ORDERED: HydrALAZINE 25mg tab ORAL PRN ×2 (09:30→13:30)
--- NOTE | 2018-10-05 09:59 | NUR ---
CASE MANAGEMENT: INITIAL REVIEW 73 F PRESENTED TO ED FROM HOME CC: NAUSEA PMHx: HTN. DM. SI:SEPSIS. BRONCHITIS. T 98.6 HR 106 RR 16 B/P 154/85 SATS 98% ON RA WBC 20.3 BUN 38 CR 1.7 GLU 133 IS: NS BOLUS 3L IV X1 CEFTRIAXONE IV X1 AZITHROMYCIN PO X1 PATIENT ADMITTED TO SDU 10/05/2018 @ 0347 DCP: PATIENT TO BE DISCHARGED TO HOME ONCE MEDICALLY CLEARED. PLAN OF CARE: CXR ID CONSULT Addendum: 10/05/18 at 1349 by Humaira Recinos CM INTERQUAL MET
[2018-10-05] MEDS: Enalapril 5mg tab ORAL SCH (10:38)
[2018-10-05] MEDS ORDERED: Cefepime HCl 1 GM in D5W 55 ML IVPB ONE (11:00)
--- NOTE | 2018-10-05 11:19 | Consultation ---
History of Present Illness General Date patient seen: Oct 05, 2018 Chief Complaint: Nausea Present Illness HPI 72 year old female with pmhx diabetes, HTN, cellulitis of legs, presents to [facility] by paramedics with CC of fever, chills, confusion. Her BS was 400 last night. She was found to be septic with WBC of 20 and is admitted to [facility] b/o tachycardia Allergies: Coded Allergies: No Known Allergies (Unverified , 02/27/18) Medication History Scheduled Aspirin* (Aspir 81*), 81 MG ORAL DAILY, (Reported) Enalapril Maleate* (Enalapril Maleate*), 5 MG ORAL DAILY, (Reported) Glipizide (Glipizide), 20 MG PO BID, (Reported) Sitagliptin (Januvia), 50 MG ORAL DAILY Scheduled PRN Hydralazine Hcl* (Hydralazine Hcl*), 25 MG ORAL DAILY PRN for systolic blood pressure >160, (Reported) Patient History Healthcare decision maker Resuscitation status Full Code Advanced Directive on File No Past Medical/Surgical History Past Medical/Surgical History: (1) Diabetes mellitus (2) HTN (hypertension) (3) Peripheral neuropathy (4) Venous stasis of lower extremity Review of Systems Neurological: Reports: no symptoms Endocrine: Reports: no symptoms Hematologic/Lymphatic: Reports: no symptoms All Other Systems: negative except mentioned in HPI Physical Exam General Appearance: WD/WN, no apparent distress Lines, tubes and drains: peripheral, central line, trach HEENT: atraumatic, anicteric Neck: non-tender, supple Respiratory/Chest: chest wall non-tender, normal breath sounds, decreased breath sounds Cardiovascular/Chest: normal rate, no JVD Abdomen: normal bowel sounds Last 24 Hour Vital Signs Date Time Temp Pulse Resp B/P (MAP) Pulse Ox O2 Delivery O2 Flow Rate FiO2 10/05/18 10:38 129/53 10/05/18 09:00 Room Air 10/05/18 08:00 96.4 72 24 129/53 (78) 98 10/05/18 07:50 86 10/05/18 06:13 62 10/05/18 06:00 98.2 67 18 143/59 100 Room Air 10/05/18 05:17 Room Air 10/05/18 05:15 98.2 72 22 141/57 (85) 97 10/05/18 05:13 Room Air 10/05/18 02:21 97.9 88 16 144/82 98 Room Air 10/05/18 01:04 97.9 10/04/18 23:45 98.6 88 16 154/85 98 Room Air 10/04/18 23:43 98.6 106 16 154/85 (108) 98 Room Air Intake and Output 10/04/18 10/05/18 19:00 07:00 Intake Total 3000 ml Balance 3000 ml Intake IV Total 3000 ml # Voids 2 Laboratory Tests Test 10/05/18 00:00 10/05/18 00:40 White Blood Count 20.3 K/UL (4.8-10.8) H Red Blood Count 4.35 M/UL (4.20-5.40) Hemoglobin 9.9 G/DL (12.0-16.0) L Hematocrit 32.7 % (37.0-47.0) L Mean Corpuscular Volume 75 FL (80-99) L Mean Corpuscular Hemoglobin 22.8 PG (27.0-31.0) L Mean Corpuscular Hemoglobin Concent 30.4 G/DL (32.0-36.0) L Red Cell Distribution Width 13.4 % (11.6-14.8) Platelet Count 260 K/UL (150-450) Mean Platelet Volume 8.2 FL (6.5-10.1) Neutrophils (%) (Auto) % (45.0-75.0) Lymphocytes (%) (Auto) % (20.0-45.0) Monocytes (%) (Auto) % (1.0-10.0) Eosinophils (%) (Auto) % (0.0-3.0) Basophils (%) (Auto) % (0.0-2.0) Differential Total Cells Counted 100 Neutrophils % (Manual) 66 % (45-75) Lymphocytes % (Manual) 18 % (20-45) L Monocytes % (Manual) 12 % (1-10) H Eosinophils % (Manual) 2 % (0-3) Basophils % (Manual) 1 % (0-2) Myelocytes % 1 % (0-0) H Band Neutrophils 0 % (0-8) Platelet Estimate Adequate Platelet Morphology Normal Red Blood Cell Morphology Normal Sodium Level 140 MMOL/L (136-145) Potassium Level 4.3 MMOL/L (3.5-5.1) Chloride Level 105 MMOL/L (98-107) Carbon Dioxide Level 27 MMOL/L (21-32) Anion Gap 9 mmol/L (5-15) Blood Urea Nitrogen 38 mg/dL (7-18) H Creatinine 1.7 MG/DL (0.55-1.30) H Estimat Glomerular Filtration Rate mL/min (>60) Glucose Level 133 MG/DL (74-106) H Lactic Acid Level 1.80 mmol/L (0.4-2.0) Calcium Level 9.3 MG/DL (8.5-10.1) Total Bilirubin 0.4 MG/DL (0.2-1.0) Aspartate Amino Transf (AST/SGOT) 23 U/L (15-37) Alanine Aminotransferase (ALT/SGPT) 13 U/L (12-78) Alkaline Phosphatase 114 U/L (46-116) Total Creatine Kinase 90 U/L (26-308) Creatine Kinase MB 0.6 NG/ML (0.0-3.6) Creatine Kinase MB Relative Index 0.6 Troponin I 0.011 ng/mL (0.000-0.056) Total Protein 8.1 G/DL (6.4-8.2) Albumin 2.5 G/DL (3.4-5.0) L Globulin 5.6 g/dL Albumin/Globulin Ratio 0.4 (1.0-2.7) L Urine Color Pale yellow Urine Appearance Slightly cloudy Urine pH 6 (4.5-8.0) Urine Specific [place] 1.010 (1.005-1.035) Urine Protein 4+ (NEGATIVE) H Urine Glucose (UA) 2+ (NEGATIVE) H Urine Ketones Negative (NEGATIVE) Urine Blood 3+ (NEGATIVE) H Urine Nitrite Negative (NEGATIVE) Urine Bilirubin Negative (NEGATIVE) Urine Urobilinogen Normal MG/DL (0.0-1.0) Urine Leukocyte Esterase Negative (NEGATIVE) Urine RBC 15-20 /HPF (0 - 2) H Urine WBC 2-4 /HPF (0 - 2) Urine Squamous Epithelial Cells Many /LPF (NONE/OCC) H Urine Bacteria Moderate /HPF (NONE) H Height (Feet): 5 Height (Inches): 4.00 Weight (Pounds): 185 Medications Current Medications Medications (Trade) Dose Ordered Sig/Alfonso Route PRN Reason Start Time Stop Time Status Last Admin Dose Admin Acetaminophen (Tylenol) 650 mg Q6H PRN ORAL Mild Pain/Temp > 100.5 10/05/18 09:00 11/04/18 08:59 Acetaminophen/ Hydrocodone Bitart ([place] 5/325) 1 tab Q6H PRN ORAL Moderate Pain (Pain Scale 4-6) 10/05/18 09:00 10/12/18 08:59 Azithromycin (Zithromax) 250 mg DAILY ORAL 10/05/18 09:00 10/09/18 12:00 10/05/18 09:30 Cefepime HCl 1 gm/ Dextrose 55 ml @ 110 mls/hr ONCE ONCE IVPB 10/05/18 11:00 10/05/18 11:29 10/05/18 10:42 Cefepime HCl 500 mg/Dextrose 55 ml @ 110 mls/hr Q24H IVPB 10/05/18 22:00 10/12/18 21:59 Dextrose (Dextrose 50%) 25 ml Q30M PRN IV Hypoglycemia 10/05/18 09:00 11/04/18 08:59 Dextrose (Dextrose 50%) 50 ml Q30M PRN IV Hypoglycemia 10/05/18 09:00 11/04/18 08:59 Enalapril Maleate (Vasotec) 5 mg DAILY ORAL 10/05/18 10:00 11/04/18 09:59 10/05/18 10:38 Hydralazine HCl (Apresoline) 25 mg DAILYPRN PRN ORAL for SBP >160 10/05/18 09:30 11/04/18 09:29 Insulin Aspart (NovoLOG) BEFORE MEALS AND HS SUBQ 10/05/18 11:30 11/04/18 11:29 Ondansetron HCl (Zofran) 4 mg Q4H PRN IVP Nausea & Vomiting 10/05/18 09:00 11/04/18 08:59 Sitagliptin Phosphate (Januvia) 50 mg ACBREAKFAST ORAL 10/06/18 06:30 11/05/18 06:29 Sodium Chloride 1,000 ml @ 150 mls/hr Q6H40M IV 10/05/18 11:30 11/04/18 11:29 Assessment/Plan Problem List: (1) Acute encephalopathy ICD Codes: G93.40 - Encephalopathy, unspecified SNOMED: 86459671, 696462456 (2) Sepsis ICD Codes: A41.9 - Sepsis, unspecified organism SNOMED: 86661113 Qualifiers: Qualified Codes: A41.9 - Sepsis, unspecified organism (3) UTI (urinary tract infection) ICD Codes: N39.0 - Urinary tract infection, site not specified SNOMED: 34518745 Qualifiers: Qualified Codes: N30.00 - Acute cystitis without hematuria (4) ATN (acute tubular necrosis) ICD Codes: N17.0 - Acute kidney failure with tubular necrosis SNOMED: 55104886 (5) Diabetes mellitus type II, uncontrolled ICD Codes: E11.65 - Type 2 diabetes mellitus with hyperglycemia SNOMED: 30801014, 841519990 (6) Acute bronchitis ICD Codes: J20.9 - Acute bronchitis, unspecified SNOMED: 22731800 (7) Anemia ICD Codes: D64.9 - Anemia SNOMED: 032662765 Qualifiers: Qualified Codes: D64.9 - Anemia, unspecified (8) Venous stasis of lower extremity ICD Codes: I87.8 - Other specified disorders of veins SNOMED: 17634601, 959058627 (9) HTN (hypertension) ICD Codes: I10 - HTN (hypertension) SNOMED: 88532942 (10) Peripheral neuropathy ICD Codes: G62.9 - Peripheral neuropathy SNOMED: 91688438 Assessment/Plan: baez culture IV abx check electrolytes IV fluids stool for C-diff sliding scale hold aspirin and heparin b/o hematuria dvt prophylaxis with SCD after venous doppler Dong Ambriz MD Oct 05, 2018 11:19
[2018-10-05] MEDS: NovoLOG Insulin Flexpen SUBQ SCH ×4 (11:23→21:00)
[2018-10-05] MEDS ORDERED: Albuterol/Ipratropium 3ml neb HHN PRN (11:45)
[2018-10-05] MEDS ORDERED: Promethazine/Codeine 5ml UD ORAL PRN (11:45)
--- NOTE | 2018-10-05 12:02 | Diagnostic Imaging Report ---
Indication: Dyspnea Comparison: 04/09/2018 A single view chest radiograph was obtained. Findings: There is questionable pulmonary vascular congestion. Correlate clinically. Heart is borderline enlarged. Bones are unremarkable. IMPRESSION: Query mild pulmonary vascular congestion
[2018-10-05] MEDS ORDERED: Heparin 5000 units/ml inj SUBQ SCH (14:00)
--- NOTE | 2018-10-05 14:01 | Consultation ---
History of Present Illness General Date patient seen: Oct 05, 2018 Chief Complaint: Nausea Present Illness HPI 72 y/o F with hx of DM2, HTN, leg cellulitis presented to ED on 10/04 with fever/ chills, confusion, dizziness and weakness. Per son, she had non productive cough for 1 week. Upon admission was found to have BS 400, wbc 20, tachycardia. Denied n/v/d. Allergies: Coded Allergies: No Known Allergies (Unverified , 02/27/18) Medication History Scheduled Aspirin* (Aspir 81*), 81 MG ORAL DAILY, (Reported) Enalapril Maleate* (Enalapril Maleate*), 5 MG ORAL DAILY, (Reported) Glipizide (Glipizide), 20 MG PO BID, (Reported) Sitagliptin (Januvia), 50 MG ORAL DAILY Scheduled PRN Hydralazine Hcl* (Hydralazine Hcl*), 25 MG ORAL DAILY PRN for systolic blood pressure >160, (Reported) Patient History Healthcare decision maker Resuscitation status Full Code Advanced Directive on File No Patient History Narrative Pmhx: as above Shx: Denies: smoking Fhx: non contributory Physical Exam Physical Exam Narrative General Appearance: well appearing, no apparent distress, alert Head: normocephalic, atraumatic Eyes: bilateral eye PERRL, bilateral eye EOMI ENT: hearing grossly normal, normal pharynx Neck: full range of motion, supple, no meningismus Respiratory: chest non-tender, lungs clear, normal breath sounds Cardiovascular #1: regular rate, rhythm, no murmur Gastrointestinal: normal bowel sounds, non tender, no mass, no organomegaly, no bruit, non-distended Musculoskeletal: back normal, gait/station normal, normal range of motion Neurologic: grossly normal - Confused Psychiatric: mood/affect normal Last 24 Hour Vital Signs Date Time Temp Pulse Resp B/P (MAP) Pulse Ox O2 Delivery O2 Flow Rate FiO2 10/05/18 12:38 186/83 10/05/18 12:23 91 10/05/18 12:00 98.8 72 20 186/83 (117) 95 10/05/18 10:38 129/53 10/05/18 09:00 Room Air 10/05/18 08:00 96.4 72 24 129/53 (78) 98 10/05/18 07:50 86 10/05/18 06:13 62 10/05/18 06:00 98.2 67 18 143/59 100 Room Air 10/05/18 05:17 Room Air 10/05/18 05:15 98.2 72 22 141/57 (85) 97 10/05/18 05:13 Room Air 10/05/18 02:21 97.9 88 16 144/82 98 Room Air 10/05/18 01:04 97.9 10/04/18 23:45 98.6 88 16 154/85 98 Room Air 10/04/18 23:43 98.6 106 16 154/85 (108) 98 Room Air Intake and Output 10/04/18 10/05/18 19:00 07:00 Intake Total 3000 ml Balance 3000 ml Intake IV Total 3000 ml # Voids 2 Laboratory Tests Test 10/05/18 00:00 10/05/18 00:40 White Blood Count 20.3 K/UL (4.8-10.8) H Red Blood Count 4.35 M/UL (4.20-5.40) Hemoglobin 9.9 G/DL (12.0-16.0) L Hematocrit 32.7 % (37.0-47.0) L Mean Corpuscular Volume 75 FL (80-99) L Mean Corpuscular Hemoglobin 22.8 PG (27.0-31.0) L Mean Corpuscular Hemoglobin Concent 30.4 G/DL (32.0-36.0) L Red Cell Distribution Width 13.4 % (11.6-14.8) Platelet Count 260 K/UL (150-450) Mean Platelet Volume 8.2 FL (6.5-10.1) Neutrophils (%) (Auto) % (45.0-75.0) Lymphocytes (%) (Auto) % (20.0-45.0) Monocytes (%) (Auto) % (1.0-10.0) Eosinophils (%) (Auto) % (0.0-3.0) Basophils (%) (Auto) % (0.0-2.0) Differential Total Cells Counted 100 Neutrophils % (Manual) 66 % (45-75) Lymphocytes % (Manual) 18 % (20-45) L Monocytes % (Manual) 12 % (1-10) H Eosinophils % (Manual) 2 % (0-3) Basophils % (Manual) 1 % (0-2) Myelocytes % 1 % (0-0) H Band Neutrophils 0 % (0-8) Platelet Estimate Adequate Platelet Morphology Normal Red Blood Cell Morphology Normal Sodium Level 140 MMOL/L (136-145) Potassium Level 4.3 MMOL/L (3.5-5.1) Chloride Level 105 MMOL/L (98-107) Carbon Dioxide Level 27 MMOL/L (21-32) Anion Gap 9 mmol/L (5-15) Blood Urea Nitrogen 38 mg/dL (7-18) H Creatinine 1.7 MG/DL (0.55-1.30) H Estimat Glomerular Filtration Rate mL/min (>60) Glucose Level 133 MG/DL (74-106) H Lactic Acid Level 1.80 mmol/L (0.4-2.0) Uric Acid 6.4 MG/DL (2.6-7.2) Calcium Level 9.3 MG/DL (8.5-10.1) Total Bilirubin 0.4 MG/DL (0.2-1.0) Aspartate Amino Transf (AST/SGOT) 23 U/L (15-37) Alanine Aminotransferase (ALT/SGPT) 13 U/L (12-78) Alkaline Phosphatase 114 U/L (46-116) Total Creatine Kinase 90 U/L (26-308) Creatine Kinase MB 0.6 NG/ML (0.0-3.6) Creatine Kinase MB Relative Index 0.6 Troponin I 0.011 ng/mL (0.000-0.056) Total Protein 8.1 G/DL (6.4-8.2) Albumin 2.5 G/DL (3.4-5.0) L Globulin 5.6 g/dL Albumin/Globulin Ratio 0.4 (1.0-2.7) L Urine Color Pale yellow Urine Appearance Slightly cloudy Urine pH 6 (4.5-8.0) Urine Specific [place] 1.010 (1.005-1.035) Urine Protein 4+ (NEGATIVE) H Urine Glucose (UA) 2+ (NEGATIVE) H Urine Ketones Negative (NEGATIVE) Urine Blood 3+ (NEGATIVE) H Urine Nitrite Negative (NEGATIVE) Urine Bilirubin Negative (NEGATIVE) Urine Urobilinogen Normal MG/DL (0.0-1.0) Urine Leukocyte Esterase Negative (NEGATIVE) Urine RBC 15-20 /HPF (0 - 2) H Urine WBC 2-4 /HPF (0 - 2) Urine Squamous Epithelial Cells Many /LPF (NONE/OCC) H Urine Bacteria Moderate /HPF (NONE) H Height (Feet): 5 Height (Inches): 4.00 Weight (Pounds): 185 Medications Current Medications Medications (Trade) Dose Ordered Sig/Alfonso Route PRN Reason Start Time Stop Time Status Last Admin Dose Admin Acetaminophen (Tylenol) 650 mg Q6H PRN ORAL Mild Pain/Temp > 100.5 10/05/18 09:00 11/04/18 08:59 Acetaminophen/ Hydrocodone Bitart ([place] 5/325) 1 tab Q6H PRN ORAL Moderate Pain (Pain Scale 4-6) 10/05/18 09:00 10/12/18 08:59 Albuterol/ Ipratropium (Albuterol/ Ipratropium) 3 ml Q4H PRN HHN Shortness of Breath 10/05/18 11:45 10/10/18 11:44 Azithromycin (Zithromax) 250 mg DAILY ORAL 10/05/18 09:00 10/09/18 12:00 10/05/18 09:30 Cefepime HCl 500 mg/Dextrose 55 ml @ 110 mls/hr Q24H IVPB 10/05/18 22:00 10/12/18 21:59 Dextrose (Dextrose 50%) 25 ml Q30M PRN IV Hypoglycemia 10/05/18 09:00 11/04/18 08:59 Dextrose (Dextrose 50%) 50 ml Q30M PRN IV Hypoglycemia 10/05/18 09:00 11/04/18 08:59 Enalapril Maleate (Vasotec) 5 mg DAILY ORAL 10/05/18 10:00 11/04/18 09:59 10/05/18 10:38 Hydralazine HCl (Apresoline) 25 mg Q6H PRN ORAL for SBP >160 10/05/18 13:30 11/04/18 09:29 Insulin Aspart (NovoLOG) BEFORE MEALS AND HS SUBQ 10/05/18 11:30 11/04/18 11:29 Ondansetron HCl (Zofran) 4 mg Q4H PRN IVP Nausea & Vomiting 10/05/18 09:00 11/04/18 08:59 Promethazine HCl/ Codeine (Phenergan with Codeine) 5 ml Q4H PRN ORAL For Cough 10/05/18 11:45 11/04/18 11:44 Sitagliptin Phosphate (Januvia) 50 mg ACBREAKFAST ORAL 10/06/18 06:30 11/05/18 06:29 Sodium Chloride 1,000 ml @ 150 mls/hr Q6H40M IV 10/05/18 11:30 11/04/18 11:29 10/05/18 11:20 Assessment/Plan Assessment/Plan: Abx: Cefepime 10/05- Azithromycin 10/05- Ceftriaxone x1 10/05 Assessment: Sepsis- 2ry to acute bronchitis vs early PNA -u/a no pyuria -CXR: Query mild pulmonary vascular congestion Afebrile Leukocytosis DM2 HTN hx of leg cellulitis Plan: -Continue empiric Cefepime and Azithromycin #2 for now -f/u cx -Monitor CBC/CMP, temperatures -sp cx -aspiration precautions -Cdiff if diarrhea Thank you for this consultation. Will continue to follow along with you. Discussed with Doris Arita M.D. Oct 05, 2018 14:01
--- NOTE | 2018-10-05 14:03 | NUR ---
NURSE NOTES: called central supply for scd, currently not available. but central will send one as soon as becomes available.
[2018-10-05 14:25] LABS: APPEARANCE,URINE CLEAR; BILIRUBIN, URINE NEGATIVE (NEGATIVE); COLOR,URINE PALE YELLOW; GLUCOSE, URINE (UA) NEGATIVE (NEGATIVE); KETONES,URINE NEGATIVE (NEGATIVE); LEUKOCYTE ESTERASE ,URINE NEGATIVE (NEGATIVE); NITRITE,URINE NEGATIVE (NEGATIVE); PH,URINE 6 (4.5-8.0); PROTEIN,URINE 4+ (NEGATIVE); UROBILINOGEN,URINE NORMAL MG/DL (0.0-1.0)
--- NOTE | 2018-10-05 15:12 | History & Physical ---
History and Physical History & Physicial Cirilo Blancas MD Oct 05, 2018 15:12
--- NOTE | 2018-10-05 15:51 | Cardiology Report ---
APPROVED REPORT EKG Measurement Heart [id number] Sinus tachycardia Septal infarct, age undetermined Abnormal ECG
--- NOTE | 2018-10-05 16:06 | NUR ---
[employer]ICALS AND REVIEWS FAXED TO [facility]: [facility] P: [phone] F: [phone] (FAX CLINICALS)
--- NOTE | 2018-10-05 17:00 | NUR ---
NURSE NOTES: blood sugar was checked resulted to 68. will give orange juice and will recheck blood sugar after 15 minutes.
--- NOTE | 2018-10-05 17:45 | History and Physical Report ---
DATE OF ADMISSION: 10/05/2018 CHIEF COMPLAINT: Productive cough, shortness of breath, weakness. HISTORY OF PRESENT ILLNESS: This is a 73-year-old female with past medical history significant for diabetes type 2, hypertension, dyslipidemia, morbid obesity, history of diabetic foot ulcer as well as history of chronic kidney disease, who was presented to the hospital. The patient presented to the emergency room accompanied with son after she was noted complaining of dizziness, weakness, and altered mental status. The patient's birthday was yesterday. When she arrived to the emergency room was feeling very weak, complained about nonproductive cough associated with shortness of breath, some chills and felt weak and blood glucose level was in 400s. She was some dizzy. No focal weakness. No diarrhea. No nausea or vomiting. Occasional chills. Shortly after initial evaluation in the emergency room, the patient was admitted to the hospital with shortness of breath and cough, possible due to bronchopneumonia as well as sepsis. PAST MEDICAL/SURGICAL HISTORY: As above, history of diabetes type 2, hypertension, diabetic foot ulcer, chronic kidney disease, and morbid obesity. The patient is status post right foot surgery in February 2013. MEDICATIONS: Medications at home, please refer to medication reconciliation. ALLERGIES: No known drug allergies. SOCIAL HISTORY: Denies any smoking, alcohol, or drugs. FAMILY HISTORY: Noncontributory. REVIEW OF SYSTEMS: Complained about chills, fever, malaise, fatigue, weakness, and poor appetite. Denies any loss of consciousness. Denies any blurred vision. Denies any palpitation or chest pain. Denies any hematuria or hematochezia. Denies any bright red blood per rectum. PHYSICAL EXAMINATION: VITAL SIGNS: On admission, temperature 98.6, pulse 106, respirations 18, and blood pressure 154/85. GENERAL: The patient is awake and responsive, in no acute distress. HEAD AND NECK: Pupils are equal and reactive to light. Extraocular movements intact. Neck was supple. No JVD. LUNGS: Good air entry with no wheezing or rales. HEART: S1, S2. Regular rhythm. No gallops. ABDOMEN: Soft, nondistended, and nontender. Morbidly obese. EXTREMITIES: No cyanosis or clubbing. The patient has left lower extremity edema with erythematous, redness. No ulcer was identified. NEUROLOGIC: Cranial nerves II through XII grossly intact. Motor is 5/5 in all extremities. Gait is intact. RECTAL/GENITOURINARY: Refused and deferred. PSYCHIATRIC: Mood and affect is intact. LABORATORY DATA: On admission, WBC 20, hemoglobin 9.9, hematocrit 32, and platelets 260. Sodium 140, potassium 4.3, chloride 105, bicarb 27, BUN 38, and creatinine 1.7. Glucose is 133. Calcium is 9.3. Troponin 0.011. Total bilirubin . Albumin is 2.5. Lactic acid is 1.8. Uric acid is 6.4. Urinalysis is +4 protein, +2 glucose, +3 occult blood, 15 to 20 rbc's, negative nitrite, negative leukocytes, and moderate bacteria. The patient's chest x-ray was noted to be mild pulmonary vascular congestion. ASSESSMENT: 1. Shortness of breath and cough, possible due to the bronchopneumonia. 2. Hypertension. 3. Dyslipidemia. 4. Morbid obesity. 5. Sepsis secondary to the bronchitis and possible early bronchopneumonia. 6. Chronic kidney disease. 7. History of left lower extremity cellulitis. PLAN: Admit the patient to PCU. We will follow up with the cultures, laboratory in the morning. Broad spectrum antibiotics with cefepime and azithromycin. Follow up with Pulmonary consultation with Dr. Ambriz and ID consultation with Dr. Plummer. Nebulizer treatment as needed. Code status, Full Code. DVT prophylaxis, heparin subcutaneous. Cirilo Blancas M.D. DR: TYRELL JOB#: [id number] CC:
--- NOTE | 2018-10-05 18:45 | NUR ---
NURSE NOTES: I received the patient from [facility] and received report from GEORGE Vergara. Patient oriented to the room and use of the call light. Bed in the lowest position and call light within reach. Patient does not display any signs of distress or SOB.
--- NOTE | 2018-10-05 18:49 | NUR ---
NURSE NOTES: patient transferred to tel [phone] tele overflow. report given to ge camara.not in acute distress. belongings checked and signed by myself and ge camara.endorsed accordingly.
--- NOTE | 2018-10-05 19:38 | NUR ---
HAND-OFF: Report given to Josef Alba RN.
--- NOTE | 2018-10-05 19:45 | NUR ---
NURSE NOTES: Pt received from GEORGE Saha alert and oriented x4 with no acute s/s of distress noted. IV site asymptomatic and patent, L hand 20g running NS at 150 ml/hr. Bed alarm on, Bed in lowest position, call light and belongings within reach.
[2018-10-05] MEDS ORDERED: Cefepime 500mg in D5W 55ml IVPB SCH (22:00)
[2018-10-06] VITALS: BP 144/63
[2018-10-06 04:00] VITALS: BP 126/53
[2018-10-06] MEDS: NovoLOG Insulin Flexpen SUBQ SCH ×4 (06:01→21:00)
[2018-10-06] MEDS ORDERED: GlipiZIDE 5mg tab ORAL SCH (06:30)
[2018-10-06] MEDS ORDERED: sitaGLIPtin 50mg tab ORAL SCH (06:30)
--- NOTE | 2018-10-06 06:47 | Pulmonology Progress Note ---
Assessment/Plan Problems: (1) Acute encephalopathy (2) Sepsis (3) UTI (urinary tract infection) (4) ATN (acute tubular necrosis) (5) Diabetes mellitus type II, uncontrolled (6) Acute bronchitis (7) Anemia (8) Venous stasis of lower extremity (9) HTN (hypertension) (10) Peripheral neuropathy Assessment/Plan pt was running up and down the [place], sinus at 85 improving continue abx check electrolytes check cultures may go to med/surg Subjective ROS Limited/Unobtainable: No Interval Events: feeling better Allergies: Coded Allergies: No Known Allergies (Unverified , 02/27/18) Objective Last 24 Hour Vital Signs Date Time Temp Pulse Resp B/P (MAP) Pulse Ox O2 Delivery O2 Flow Rate FiO2 10/06/18 04:00 97.7 82 18 126/53 (77) 96 10/06/18 04:00 82 10/06/18 00:00 89 10/06/18 00:00 98.1 89 18 144/63 (90) 98 10/05/18 21:00 Room Air 10/05/18 20:00 92 10/05/18 20:00 99.6 92 18 147/63 (91) 97 10/05/18 16:00 99.5 94 20 149/104 (119) 97 10/05/18 15:42 99 10/05/18 12:38 186/83 10/05/18 12:23 91 10/05/18 12:00 98.8 72 20 186/83 (117) 95 10/05/18 10:38 129/53 10/05/18 09:00 Room Air 10/05/18 08:00 96.4 72 24 129/53 (78) 98 10/05/18 07:50 86 Intake and Output 10/05/18 10/06/18 18:59 06:59 Intake Total 1635 ml 655 ml Output Total 700 ml Balance 935 ml 655 ml Intake Oral 550 ml IV Total 1085 ml 655 ml Output Urine Total 700 ml # Voids 3 2 # Bowel Movements 3 1 General Appearance: WD/WN HEENT: normocephalic, atraumatic Respiratory/Chest: chest wall non-tender, lungs clear, normal breath sounds Breasts: no masses Cardiovascular: normal peripheral pulses, normal rate, no JVD Abdomen: normal bowel sounds, soft, non tender Genitourinary: normal external genitalia Extremities: no cyanosis Skin: no rash 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: ui lead developer 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 normal Microbiology Date/Time Source Procedure Growth Status 10/05/18 00:15 Blood Blood Culture - Preliminary NO GROWTH AFTER 24 HOURS Resulted 10/05/18 00:00 Blood Blood Culture - Preliminary NO GROWTH AFTER 24 HOURS Resulted 10/05/18 16:30 Sputum Gram Stain - Final Resulted 10/05/18 16:30 Sputum Sputum Culture - Preliminary NORMAL UPPER RESPIRATORY VICTORINO AT 24 ... Resulted 10/05/18 22:12 Stool Clostridium difficile Toxin Assay - Final Complete 10/05/18 00:40 Urine,Clean Catch Urine Culture - Preliminary NO GROWTH Resulted Laboratory Tests 10/05/18 13:30: Urine Color Pale yellow, Urine Appearance Clear, Urine pH 6, Urine Specific [place] 1.010, Urine Protein 4+H, Urine Glucose (UA) Negative, Urine Ketones Negative, Urine Blood 4+H, Urine Nitrite Negative, Urine Bilirubin Negative, Urine Urobilinogen Normal, Urine Leukocyte Esterase Negative, Urine RBC 5-10H, Urine WBC 0-2, Urine Squamous Epithelial Cells Few, Urine Bacteria Few, Urine Eosinophils None seen, Urine Random Sodium 104, Urine Potassium Timed 24 Current Medications Medications (Trade) Dose Ordered Sig/Alfonso Route PRN Reason Start Time Stop Time Status Last Admin Dose Admin Acetaminophen (Tylenol) 650 mg Q6H PRN ORAL Mild Pain/Temp > 100.5 10/05/18 09:00 11/04/18 08:59 Acetaminophen/ Hydrocodone Bitart ([place] 5/325) 1 tab Q6H PRN ORAL Moderate Pain (Pain Scale 4-6) 10/05/18 09:00 10/12/18 08:59 Albuterol/ Ipratropium (Albuterol/ Ipratropium) 3 ml Q4H PRN HHN Shortness of Breath 10/05/18 11:45 10/10/18 11:44 Azithromycin (Zithromax) 250 mg DAILY ORAL 10/05/18 09:00 10/09/18 12:00 10/05/18 09:30 Cefepime HCl 500 mg/Dextrose 55 ml @ 110 mls/hr Q24H IVPB 10/05/18 22:00 10/12/18 21:59 10/05/18 22:01 Dextrose (Dextrose 50%) 25 ml Q30M PRN IV Hypoglycemia 10/05/18 09:00 11/04/18 08:59 Dextrose (Dextrose 50%) 50 ml Q30M PRN IV Hypoglycemia 10/05/18 09:00 11/04/18 08:59 Enalapril Maleate (Vasotec) 5 mg DAILY ORAL 10/05/18 10:00 11/04/18 09:59 10/05/18 10:38 Hydralazine HCl (Apresoline) 25 mg Q6H PRN ORAL for SBP >160 10/05/18 13:30 11/04/18 09:29 Insulin Aspart (NovoLOG) BEFORE MEALS AND HS SUBQ 10/05/18 11:30 11/04/18 11:29 Ondansetron HCl (Zofran) 4 mg Q4H PRN IVP Nausea & Vomiting 10/05/18 09:00 11/04/18 08:59 Promethazine HCl/ Codeine (Phenergan with Codeine) 5 ml Q4H PRN ORAL For Cough 10/05/18 11:45 11/04/18 11:44 Sitagliptin Phosphate (Januvia) 50 mg ACBREAKFAST ORAL 10/06/18 06:30 11/05/18 06:29 10/06/18 06:01 Sodium Chloride 1,000 ml @ 150 mls/hr Q6H40M IV 10/05/18 11:30 11/04/18 11:29 10/06/18 01:32 Dong Ambriz MD Oct 06, 2018 06:47
[2018-10-06 07:15] LABS: HEMATOCRIT 25.2 % (37.0-47.0); HEMOGLOBIN 7.9 G/DL (12.0-16.0); MEAN CORPUSCULAR VOLUME 75 FL (80-99); PLATELET COUNT 223 K/UL (150-450); RED BLOOD COUNT 3.37 M/UL (4.20-5.40); RED CELL DISTRIBUTION WIDTH 13.3 % (11.6-14.8); WHITE BLOOD COUNT 15.6 K/UL (4.8-10.8)
--- NOTE | 2018-10-06 07:15 | NUR ---
HAND-OFF: Report given to GEORGE Saha.
--- NOTE | 2018-10-06 07:27 | NUR ---
NURSE NOTES: I received the patient awake and resting in bed. Bed in the lowest position and call light within reach. Patient does not display any signs of distress or SOB. IV patent and infusing fluids. I will continue to monitor the patient and implement care.
[2018-10-06 07:29] LABS: INR 0.9 (0.9-1.1)
[2018-10-06 07:38] LABS: ANION GAP 8 mmol/L (5-15); CALCIUM 8.1 MG/DL (8.5-10.1); CARBON DIOXIDE 24 MMOL/L (21-32); CHLORIDE 111 MMOL/L (98-107); CREATININE 1.6 MG/DL (0.55-1.30); PHOSPHORUS 2.8 MG/DL (2.5-4.9); POTASSIUM 3.6 MMOL/L (3.5-5.1); SODIUM 143 MMOL/L (136-145)
[2018-10-06 07:56] VITALS: BP 179/76
[2018-10-06 08:01] LABS: BLOOD UREA NITROGEN 28 mg/dL (7-18)
[2018-10-06] MEDS: Enalapril 5mg tab ORAL SCH (08:18)
[2018-10-06] MEDS: Azithromycin 250mg tab ORAL SCH (08:18)
[2018-10-06 08:33] LABS: LACTATE DEHYDROGENASE 222 U/L (81-234)
[2018-10-06 08:45] LABS: % IRON SATURATION 5 % (15-50); IRON 8 ug/dL (50-175); TOTAL IRON BINDING CAPACITY 156 ug/dL (250-450)
[2018-10-06] MEDS ORDERED: Aspirin Baby 81mg ORAL SCH (10:00)
[2018-10-06] MEDS ORDERED: Albuterol/Ipratropium 3ml neb HHN PRN (11:15)
[2018-10-06] MEDS ORDERED: HYDROcodone/Acetamin 5/325 tab ORAL PRN (11:15)
--- NOTE | 2018-10-06 11:28 | Diagnostic Imaging Report ---
Indication: Abnormal breath sounds Comparison: 10/05/2018 2 views of the chest obtained. Findings: Cardiomediastinal silhouette and pulmonary vascularity are within normal limits for age. The diaphragmatic contour is smooth and costophrenic angles are sharp. No pleural effusions are identified. The bones are unremarkable. Impression: No acute disease
--- NOTE | 2018-10-06 11:29 | NUR ---
NURSE NOTES: Patient transferred to [facility]. Report given to GEORGE Young. Patient's belongings reviewed and confirmed with the patient and GEORGE Young. Patient's IV patent and infusing Magnesium. Patient in stable condition and did not display any signs of distress or SOB.
--- NOTE | 2018-10-06 11:34 | NUR ---
NURSE NOTES: Patient received from Telemetry,patient is alert and oriented,respirations are unlabored.IV fluids as ordered.Patient receiving Magnesium Bolus as ordered. Patient talking with family member on the phone.Call light within reach.
[2018-10-06] MEDS ORDERED: Promethazine/Codeine 5ml UD ORAL PRN (11:45)
--- NOTE | 2018-10-06 12:00 | NUR ---
CHARGE NURSE NOTE: Received patient from telemetry. H@H ., was called, message left.
--- NOTE | 2018-10-06 12:49 | NUR ---
CASE MANAGEMENT: REVIEW 10/06/2018 SI:SEPSIS. BRONCHITIS. T 98.7 HR 94 RR 18 B/P 179/76 SATS 98% ON RA WBC 15.6 HGB 7.9 HCT 25.2 CL 111 BUN 28 CR 1.6 CA 8.1 MG 1.5 IS: IVF @ 150 mL/HR JANUVIA PO QAM ZITHROMAX PO QD VASOTEC PO QD INSULIN ASPART SUBQ AC/HS CEFEPIME IV Q24H MED/SURG STATUS DCP: PATIENT TO BE DISCHARGED TO HOME ONCE MEDICALLY CLEARED.
[2018-10-06 13:11] VITALS: BP 151/65
--- NOTE | 2018-10-06 13:12 | NUR ---
CHARGE NURSE NOTE: H@H 9.9/32.7 (10/05/18), H@H 7.9/25.2. notified. No blood transfusion order. CBC for tomorrow.
--- NOTE | 2018-10-06 15:03 | Internal Med Progress Note ---
Subjective Physician Name Cirilo Blancas Attending Physician Cirilo Blancas MD Current Medications Medications (Trade) Dose Ordered Sig/Alfonso Route PRN Reason Start Time Stop Time Status Last Admin Dose Admin Acetaminophen (Tylenol) 650 mg Q6H PRN ORAL Mild Pain/Temp > 100.5 10/06/18 11:15 11/05/18 11:14 Acetaminophen/ Hydrocodone Bitart ([place] 5/325) 1 tab Q6H PRN ORAL Moderate Pain (Pain Scale 4-6) 10/06/18 11:15 10/13/18 11:14 Albuterol/ Ipratropium (Albuterol/ Ipratropium) 3 ml Q4H PRN HHN Shortness of Breath 10/06/18 11:15 10/11/18 11:14 Azithromycin (Zithromax) 250 mg DAILY ORAL 10/07/18 09:00 10/09/18 12:00 Cefepime HCl 500 mg/Dextrose 55 ml @ 110 mls/hr Q24H IVPB 10/06/18 22:00 10/12/18 21:59 Dextrose (Dextrose 50%) 25 ml Q30M PRN IV Hypoglycemia 10/06/18 11:30 11/04/18 08:59 Dextrose (Dextrose 50%) 50 ml Q30M PRN IV Hypoglycemia 10/06/18 11:30 11/04/18 08:59 Enalapril Maleate (Vasotec) 5 mg DAILY ORAL 10/07/18 09:00 11/04/18 09:59 Hydralazine HCl (Apresoline) 25 mg Q6H PRN ORAL for SBP >160 10/06/18 11:15 11/05/18 11:14 Insulin Aspart (NovoLOG) BEFORE MEALS AND HS SUBQ 10/06/18 11:30 11/04/18 11:29 Ondansetron HCl (Zofran) 4 mg Q4H PRN IVP Nausea & Vomiting 10/06/18 11:15 11/05/18 11:14 Promethazine HCl/ Codeine (Phenergan with Codeine) 5 ml Q4H PRN ORAL For Cough 10/06/18 11:45 11/04/18 11:44 Sitagliptin Phosphate (Januvia) 50 mg ACBREAKFAST ORAL 10/07/18 06:30 11/05/18 06:29 Sodium Chloride 1,000 ml @ 150 mls/hr Q6H40M IV 10/06/18 11:14 11/05/18 11:13 10/06/18 12:25 Allergies: Coded Allergies: No Known Allergies (Unverified , 02/27/18) Subjective Awake, alert, responsive, no acute distress, no nausea, no vomiting, denies any chest pain or shortness of breath.Hgb drop to 7.9. Objective Last Vital Signs Date Time Temp Pulse Resp B/P (MAP) Pulse Ox O2 Delivery O2 Flow Rate FiO2 10/06/18 13:11 98.1 90 18 151/65 (93) 96 10/06/18 09:05 Room Air 21 Laboratory Tests Test 10/06/18 06:49 White Blood Count 15.6 K/UL (4.8-10.8) H Red Blood Count 3.37 M/UL (4.20-5.40) L Hemoglobin 7.9 G/DL (12.0-16.0) L Hematocrit 25.2 % (37.0-47.0) L Mean Corpuscular Volume 75 FL (80-99) L Mean Corpuscular Hemoglobin 23.6 PG (27.0-31.0) L Mean Corpuscular Hemoglobin Concent 31.5 G/DL (32.0-36.0) L Red Cell Distribution Width 13.3 % (11.6-14.8) Platelet Count 223 K/UL (150-450) Mean Platelet Volume 8.9 FL (6.5-10.1) Neutrophils (%) (Auto) % (45.0-75.0) Lymphocytes (%) (Auto) % (20.0-45.0) Monocytes (%) (Auto) % (1.0-10.0) Eosinophils (%) (Auto) % (0.0-3.0) Basophils (%) (Auto) % (0.0-2.0) Differential Total Cells Counted 100 Neutrophils % (Manual) 55 % (45-75) Lymphocytes % (Manual) 27 % (20-45) Monocytes % (Manual) 13 % (1-10) H Eosinophils % (Manual) 2 % (0-3) Basophils % (Manual) 1 % (0-2) Myelocytes % 1 % (0-0) H Band Neutrophils 1 % (0-8) Platelet Estimate Adequate Platelet Morphology Normal Hypochromasia 2+ Erythrocyte Sedimentation Rate 128 MM/HR (0-30) H Reticulocyte Count 0.9 % (0.5-2.0) Prothrombin Time 10.0 SEC (9.30-11.50) Prothromb Time International Ratio 0.9 (0.9-1.1) Activated Partial Thromboplast Time 31 SEC (23-33) Sodium Level 143 MMOL/L (136-145) Potassium Level 3.6 MMOL/L (3.5-5.1) Chloride Level 111 MMOL/L (98-107) H Carbon Dioxide Level 24 MMOL/L (21-32) Anion Gap 8 mmol/L (5-15) Blood Urea Nitrogen 28 mg/dL (7-18) H Creatinine 1.6 MG/DL (0.55-1.30) H Estimat Glomerular Filtration Rate mL/min (>60) Glucose Level 91 MG/DL (74-106) Calcium Level 8.1 MG/DL (8.5-10.1) L Phosphorus Level 2.8 MG/DL (2.5-4.9) Magnesium Level 1.5 MG/DL (1.8-2.4) L Iron Level 8 ug/dL (50-175) L Total Iron Binding Capacity 156 ug/dL (250-450) L Percent Iron Saturation 5 % (15-50) L Unsaturated Iron Binding 148 ug/dL (112-346) Lactate Dehydrogenase 222 U/L (81-234) C-Reactive Protein, Quantitative 20.5 mg/dL (0.00-0.90) H Carcinoembryonic Antigen Pending Vitamin B12 Level 485 PG/ML (193-986) Folate 13.5 NG/ML (8.6-58.9) Microbiology Date/Time Source Procedure Growth Status 10/05/18 00:15 Blood Blood Culture - Preliminary NO GROWTH AFTER 24 HOURS Resulted 10/05/18 00:00 Blood Blood Culture - Preliminary NO GROWTH AFTER 24 HOURS Resulted 10/05/18 16:30 Sputum Gram Stain - Final Resulted 10/05/18 16:30 Sputum Sputum Culture - Preliminary NORMAL UPPER RESPIRATORY VICTORINO AT 24 ... Resulted 10/05/18 22:12 Stool Clostridium difficile Toxin Assay - Final Complete 10/05/18 00:40 Urine,Clean Catch Urine Culture - Preliminary NO GROWTH Resulted Intake and Output 10/05/18 10/06/18 19:00 07:00 Intake Total 1635 ml 655 ml Output Total 700 ml Balance 935 ml 655 ml Intake Oral 550 ml IV Total 1085 ml 655 ml Output Urine Total 700 ml # Voids 3 2 # Bowel Movements 3 1 Objective GENERAL: Awake and responsive, in no acute distress. HEAD AND NECK: Pupils are equal and reactive to light. Extraocular movements intact. Neck was supple. No JVD. LUNGS: Good air entry with no wheezing or rales. HEART: S1, S2. Regular rhythm. No Murmur or gallops. ABDOMEN: Soft, nondistended, and nontender. Morbidly obese. EXTREMITIES: No cyanosis or clubbing. The patient has left lower extremity edema with erythematous, redness. No ulcer was identified. NEUROLOGIC: Cranial nerves II through XII grossly intact. Motor is 5/5 in all extremities. Gait is intact. RECTAL/GENITOURINARY: Refused and deferred. PSYCHIATRIC: Mood and affect is intact. Assessment/Plan Assessment/Plan ASSESSMENT: 1. Shortness of breath and cough, possible due to the bronchopneumonia. 2. Hypertension. 3. Dyslipidemia. 4. Morbid obesity. 5. Sepsis secondary to the bronchitis or early bronchopneumonia. 6. Chronic kidney disease. 7. History of left lower extremity cellulitis. 8. Anemia. PLAN: Transfer to Medical Unit. Follow up with the cultures and laboratory Broad spectrum antibiotics with cefepime and azithromycin. Follow up with Pulmonary consultation with Dr. Ambriz and ID consultation with Dr. Plummer. Nebulizer treatment as needed. Code status: Full Code. DVT prophylaxis: heparin subcutaneous. Consider transfuse 1 unit of packed RBC in the morning if decrease in hemoglobin. Maximo Sorensen Payam MD Oct 06, 2018 15:03
[2018-10-06 16:00] VITALS: BP 135/56
--- NOTE | 2018-10-06 18:37 | NUR ---
CHARGE NURSE NOTE: Left foot dorsal area close to 3rd and 4th digits swollen area noted, oozing pus. notified. Pic.taken by primary nurse. Wound culture will be send. (director of materials management) was called, message left.
--- NOTE | 2018-10-06 19:00 | NUR ---
NURSE NOTES: Noted pus like yellow drainage between the 4th and 5th toe,skin texture has a spongy type feel and has a slight odor.Patient has a callus on the foot pad.DR Blancas aware charge Nurse in to also asses.Orders received picture taken of the foot.Culture also taken as ordered.
--- NOTE | 2018-10-06 19:52 | NUR ---
HAND-OFF: Report given to Katerina VAZQUEZ.
[2018-10-06 20:00] VITALS: BP 140/59
[2018-10-06] MEDS ORDERED: Vancomycin 1.5gm Premix IVPB ONE (20:00)
--- NOTE | 2018-10-06 20:02 | NUR ---
NURSE NOTES: Pt received in bed, alert and oriented and knitting, no c/o pain or signs of distress at the moment, IV in place and running, will continue to monitor.
--- NOTE | 2018-10-06 21:00 | NUR ---
NURSE NOTES: pt has socks on at the moment, was endorsed that left foot toe area feels spongy with some pus and that MD aware.
[2018-10-06] MEDS: Cefepime HCl 500 MG in D5W 55 ML IVPB SCH (23:16)
[2018-10-07] VITALS: BP 154/74
[2018-10-07 04:00] VITALS: BP 169/74
[2018-10-07] MEDS: sitaGLIPtin 50mg tab ORAL SCH (05:59)
[2018-10-07] MEDS: NovoLOG Insulin Flexpen SUBQ SCH ×4 (06:01→20:37)
--- NOTE | 2018-10-07 07:12 | NUR ---
HAND-OFF: Report given to GEORGE Young.
--- NOTE | 2018-10-07 07:47 | NUR ---
Patient is awake and alert and oriented,respirations unlabored.IV fluids infusing as ordered.Patient sitting up and eating breakfast.Call light within reach.
[2018-10-07 08:00] VITALS: BP 150/63
[2018-10-07] MEDS: Azithromycin 250mg tab ORAL SCH (08:09)
[2018-10-07] MEDS: Enalapril 5mg tab ORAL SCH (08:09)
[2018-10-07 09:40] LABS: BASOPHILS % (AUTO) 1.4 % (0.0-2.0); EOSINOPHILS % (AUTO) 3.5 % (0.0-3.0); HEMATOCRIT 26.6 % (37.0-47.0); HEMOGLOBIN 8.1 G/DL (12.0-16.0); MEAN CORPUSCULAR VOLUME 75 FL (80-99); MONOCYTES % (AUTO) 9.6 % (1.0-10.0); NEUTROPHILS % (AUTO) 70.4 % (45.0-75.0); PLATELET COUNT 215 K/UL (150-450); RED BLOOD COUNT 3.54 M/UL (4.20-5.40); RED CELL DISTRIBUTION WIDTH 13.3 % (11.6-14.8); WHITE BLOOD COUNT 10.9 K/UL (4.8-10.8)
[2018-10-07 10:29] LABS: ALANINE AMINOTRANSFERASE 10 U/L (12-78); ALBUMIN/GLOBULIN RATIO 0.4 (1.0-2.7); ALKALINE PHOSPHATASE 106 U/L (46-116); ANION GAP 11 mmol/L (5-15); ASPARTATE AMINO TRANSFERASE 22 U/L (15-37); BILIRUBIN,TOTAL 0.3 MG/DL (0.2-1.0); BLOOD UREA NITROGEN 30 mg/dL (7-18); CALCIUM 8.5 MG/DL (8.5-10.1); CARBON DIOXIDE 21 MMOL/L (21-32); CHLORIDE 107 MMOL/L (98-107); CREATININE 1.6 MG/DL (0.55-1.30); POTASSIUM 3.7 MMOL/L (3.5-5.1); SODIUM 139 MMOL/L (136-145)
--- NOTE | 2018-10-07 10:45 | Consultation ---
DATE OF CONSULTATION: 10/07/2018 CONSULTING PHYSICIAN: Alan Elizondo DPM. REFERRING PHYSICIAN: Cirilo Blancas M.D. REASON FOR CONSULTATION: Diabetic foot ulcer, left foot. HISTORY OF PRESENT ILLNESS: This is a 73-year-old diabetic patient with peripheral vascular disease, admitted to [facility] with shortness of breath. The patient was later diagnosed with ulceration to the left foot, cellulitis, and diabetic foot ulcer. The patient was admitted with antibiotic of cefepime and azithromycin. The patient's white count was 15.6 and is currently under Dr. Blancas's medical management. The patient states that she does not recall when she got the ulceration or had infection to her foot. She has not seen a division toll wire chief in the past 2 years. No treatment and no care was given to her foot. PAST MEDICAL HISTORY: Diabetes, diabetic ulcers, peripheral vascular disease, UTI, shortness of breath, hammertoe, bunion deformities, multiple foot surgeries, peripheral neuropathy, cellulitis. PHYSICAL EXAMINATION: VASCULAR: Dorsalis pedis and posterior tibial artery are nonpalpable. Capillary filling time is greater than 5 seconds. There is pitting edema noted to bilateral legs distal to the knee down to her feet. Consistent with peripheral vascular disease. NEUROLOGICAL: Sharp and dull proprioception, protective threshold noted to be diminished consistent with peripheral neuropathy. MUSCULOSKELETAL: Multiple deformity was noted to bilateral feet. Postsurgical incision was noted to bilateral third metatarsophalangeal joint area with retracted third digits bilaterally. There are contracted digits 1 through 5 at the PIPJ consistent with hammertoe deformity. There is hyperkeratotic lesions formed sub right first, second, third, fourth, consistent with plantar flexion of the metatarsals possibly secondary to the hammertoes. There is abductovalgus deformity in bilateral first metatarsals consistent with bunion deformity. DERMATOLOGICAL EVALUATION: Attention was directed to the left fourth where enlarged fourth toes and fifth was identified. There is an ulceration to the lateral aspect of the distal fourth toe with positive drainage, discharge, or purulent matter. There is ulceration sub left first and fourth metatarsal. There is a bone probing to the lateral aspect of the left toe, possibly communicating with the plantar ulceration, could not identify with a Q-tip at bedside at this time. The foot is enlarged, swollen around the fourth metatarsophalangeal joints, possibly clinical consistency of osteomyelitis cannot ruled in at this time. ASSESSMENT AND PLAN: Diabetic foot ulcer, left foot with suspicious of osteomyelitis changes. Cellulitis. Hypertension. UTI. Peripheral vascular disease. Hammertoes. Bunion. Diabetic neuropathy. Order was given for MRI of the left foot to further evaluate for possible osteomyelitic changes. Order was given for Betadine application to the left foot. Cultures are pending. The patient was discussed with Dr. Blancas for possible Vascular consultation. The patient will be followed pending MRI. Alan Elizondo D.P.M DR: Dae JOB#: [id number] CC: PK
--- NOTE | 2018-10-07 10:47 | Infectious Diseases Prog Note ---
Assessment/Plan Assessment/Plan Abx: Cefepime 10/05- Azithromycin 10/05- Ceftriaxone x1 10/05 Assessment: Sepsis- 2ry to acute bronchitis vs early PNA -u/a no pyuria -CXR: Query mild pulmonary vascular congestion Afebrile Leukocytosis DM2 HTN hx of leg cellulitis Plan: -Continue empiric Cefepime and Azithromycin #4/ -f/u cx -Monitor CBC/CMP, temperatures -sp cx -aspiration precautions -Cdiff if diarrhea Thank you for this consultation. Will continue to follow along with you. Subjective Allergies: Coded Allergies: No Known Allergies (Unverified , 02/27/18) Subjective Afebrile Leukocytosis resolving Satting well on RA Objective Vital Signs Last 24 Hour Vital Signs Date Time Temp Pulse Resp B/P (MAP) Pulse Ox O2 Delivery O2 Flow Rate FiO2 10/07/18 10:21 Room Air 10/07/18 08:09 150/63 10/07/18 08:00 98.6 76 19 150/63 (92) 97 10/07/18 04:00 98.3 78 19 169/74 (105) 98 10/07/18 00:00 99.1 82 19 154/74 (100) 97 10/06/18 21:00 Room Air 10/06/18 20:30 98.9 10/06/18 20:00 100.0 80 18 140/59 (86) 96 10/06/18 16:00 100.4 86 20 135/56 (82) 94 10/06/18 13:11 98.1 90 18 151/65 (93) 96 10/06/18 10:50 179/76 Height (Feet): 5 Height (Inches): 4.00 Weight (Pounds): 185 Objective General Appearance: NAD HEENT: NCAT, MMM, EOMI Respiratory: chest non-tender, lungs clear, normal breath sounds Cardiovascular: regular rate, rhythm, no murmur Gastrointestinal: normal bowel sounds, non tender, non-distended Microbiology Date/Time Source Procedure Growth Status 10/05/18 00:15 Blood Blood Culture - Preliminary NO GROWTH AFTER 48 HOURS Resulted 10/05/18 00:00 Blood Blood Culture - Preliminary NO GROWTH AFTER 48 HOURS Resulted 10/05/18 16:30 Sputum Gram Stain - Final Complete 10/05/18 16:30 Sputum Sputum Culture - Final NORMAL UPPER RESPIRATORY VICTORINO AT 48 ... Complete 10/05/18 22:12 Stool Clostridium difficile Toxin Assay - Final Complete 10/05/18 00:40 Urine,Clean Catch Urine Culture - Final Diphtheroids Complete 10/06/18 19:00 Leg Left Gram Stain - Final Resulted 10/06/18 19:00 Leg Left Wound Culture - Preliminary Resulted Laboratory Tests Test 10/07/18 08:15 White Blood Count 10.9 K/UL (4.8-10.8) H Red Blood Count 3.54 M/UL (4.20-5.40) L Hemoglobin 8.1 G/DL (12.0-16.0) L Hematocrit 26.6 % (37.0-47.0) L Mean Corpuscular Volume 75 FL (80-99) L Mean Corpuscular Hemoglobin 23.0 PG (27.0-31.0) L Mean Corpuscular Hemoglobin Concent 30.6 G/DL (32.0-36.0) L Red Cell Distribution Width 13.3 % (11.6-14.8) Platelet Count 215 K/UL (150-450) Mean Platelet Volume 7.5 FL (6.5-10.1) Neutrophils (%) (Auto) 70.4 % (45.0-75.0) Lymphocytes (%) (Auto) 15.0 % (20.0-45.0) L Monocytes (%) (Auto) 9.6 % (1.0-10.0) Eosinophils (%) (Auto) 3.5 % (0.0-3.0) H Basophils (%) (Auto) 1.4 % (0.0-2.0) Erythrocyte Sedimentation Rate Pending Sodium Level 139 MMOL/L (136-145) Potassium Level 3.7 MMOL/L (3.5-5.1) Chloride Level 107 MMOL/L (98-107) Carbon Dioxide Level 21 MMOL/L (21-32) Anion Gap 11 mmol/L (5-15) Blood Urea Nitrogen 30 mg/dL (7-18) H Creatinine 1.6 MG/DL (0.55-1.30) H Estimat Glomerular Filtration Rate mL/min (>60) Glucose Level 115 MG/DL (74-106) H Calcium Level 8.5 MG/DL (8.5-10.1) Phosphorus Level 3.0 MG/DL (2.5-4.9) Magnesium Level 2.0 MG/DL (1.8-2.4) Total Bilirubin 0.3 MG/DL (0.2-1.0) Aspartate Amino Transf (AST/SGOT) 22 U/L (15-37) Alanine Aminotransferase (ALT/SGPT) 10 U/L (12-78) L Alkaline Phosphatase 106 U/L (46-116) C-Reactive Protein, Quantitative 21.4 mg/dL (0.00-0.90) H Total Protein 6.8 G/DL (6.4-8.2) Albumin 2.0 G/DL (3.4-5.0) L Globulin 4.8 g/dL Albumin/Globulin Ratio 0.4 (1.0-2.7) L Current Medications Medications (Trade) Dose Ordered Sig/Alfonso Route PRN Reason Start Time Stop Time Status Last Admin Dose Admin Acetaminophen (Tylenol) 650 mg Q6H PRN ORAL Mild Pain/Temp > 100.5 10/06/18 11:15 11/05/18 11:14 Acetaminophen/ Hydrocodone Bitart ([place] 5/325) 1 tab Q6H PRN ORAL Moderate Pain (Pain Scale 4-6) 10/06/18 11:15 10/13/18 11:14 Albuterol/ Ipratropium (Albuterol/ Ipratropium) 3 ml Q4H PRN HHN Shortness of Breath 10/06/18 11:15 10/11/18 11:14 Azithromycin (Zithromax) 250 mg DAILY ORAL 10/07/18 09:00 10/09/18 12:00 10/07/18 08:09 Cefepime HCl 500 mg/Dextrose 55 ml @ 110 mls/hr Q24H IVPB 10/06/18 22:00 10/12/18 21:59 10/06/18 23:16 Dextrose (Dextrose 50%) 25 ml Q30M PRN IV Hypoglycemia 10/06/18 11:30 11/04/18 08:59 Dextrose (Dextrose 50%) 50 ml Q30M PRN IV Hypoglycemia 10/06/18 11:30 11/04/18 08:59 Enalapril Maleate (Vasotec) 5 mg DAILY ORAL 10/07/18 09:00 11/04/18 09:59 10/07/18 08:09 Hydralazine HCl (Apresoline) 25 mg Q6H PRN ORAL for SBP >160 10/06/18 11:15 11/05/18 11:14 Insulin Aspart (NovoLOG) BEFORE MEALS AND HS SUBQ 10/06/18 11:30 11/04/18 11:29 Ondansetron HCl (Zofran) 4 mg Q4H PRN IVP Nausea & Vomiting 10/06/18 11:15 11/05/18 11:14 Promethazine HCl/ Codeine (Phenergan with Codeine) 5 ml Q4H PRN ORAL For Cough 10/06/18 11:45 11/04/18 11:44 Sitagliptin Phosphate (Januvia) 50 mg ACBREAKFAST ORAL 10/07/18 06:30 11/05/18 06:29 10/07/18 05:59 Sodium Chloride 1,000 ml @ 150 mls/hr Q6H40M IV 10/06/18 11:14 11/05/18 11:13 10/07/18 05:58 Vancomycin HCl (Vanco rx to dose) 1 ea DAILY PRN MISC Per rx protocol 10/06/18 18:45 11/05/18 18:44 Alan Jackson MD Oct 07, 2018 10:46
[2018-10-07 12:00] VITALS: BP 122/78
--- NOTE | 2018-10-07 12:15 | NUR ---
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 CELLULITIS VS: BP 150/60, P 86, T 98.0, RR 19, SpO2 97 WBC 10.9, RBC 3.54, H&H 8.1/26.6, BUN 30, CR 1.6 IS:CEFEPIME 55ml IVPB NOVOLOG SUBQ HEPARIN SUBQ JANUVIA 50mg VASOTEC 5mg ZITHROMAX 250mg NS x1L IV PLAN: MRI OF THE FOOT CULTURES PENDING POSSIBLE VASCULAR CONSULTATION MED/SURG STATUS
[2018-10-07 16:00] VITALS: BP 138/69
--- NOTE | 2018-10-07 18:00 | NUR ---
NURSE NOTES: Patient sitting up eating dinner,no complaints of pain.Call light within reach.
--- NOTE | 2018-10-07 19:25 | NUR ---
HAND-OFF: Report given to Katerina Graves.
--- NOTE | 2018-10-07 19:25 | NUR ---
NURSE NOTES: Pt received in bed alert, able to make needs known, call light within reach, no c/o pain, IV intact and running, will continue to monitor.
[2018-10-07 20:00] VITALS: BP 150/60
--- NOTE | 2018-10-07 21:58 | Internal Med Progress Note ---
Subjective Physician Name Cirilo Blancas Attending Physician Cirilo Blancas MD Current Medications Medications (Trade) Dose Ordered Sig/Alfonso Route PRN Reason Start Time Stop Time Status Last Admin Dose Admin Acetaminophen (Tylenol) 650 mg Q6H PRN ORAL Mild Pain/Temp > 100.5 10/06/18 11:15 11/05/18 11:14 Acetaminophen/ Hydrocodone Bitart ([place] 5/325) 1 tab Q6H PRN ORAL Moderate Pain (Pain Scale 4-6) 10/06/18 11:15 10/13/18 11:14 Albuterol/ Ipratropium (Albuterol/ Ipratropium) 3 ml Q4H PRN HHN Shortness of Breath 10/06/18 11:15 10/11/18 11:14 Azithromycin (Zithromax) 250 mg DAILY ORAL 10/07/18 09:00 10/09/18 12:00 10/07/18 08:09 Cefepime HCl 500 mg/Dextrose 55 ml @ 110 mls/hr Q24H IVPB 10/06/18 22:00 10/12/18 21:59 10/06/18 23:16 Dextrose (Dextrose 50%) 25 ml Q30M PRN IV Hypoglycemia 10/06/18 11:30 11/04/18 08:59 Dextrose (Dextrose 50%) 50 ml Q30M PRN IV Hypoglycemia 10/06/18 11:30 11/04/18 08:59 Enalapril Maleate (Vasotec) 5 mg DAILY ORAL 10/07/18 09:00 11/04/18 09:59 10/07/18 08:09 Hydralazine HCl (Apresoline) 25 mg Q6H PRN ORAL for SBP >160 10/06/18 11:15 11/05/18 11:14 Insulin Aspart (NovoLOG) BEFORE MEALS AND HS SUBQ 10/06/18 11:30 11/04/18 11:29 10/07/18 17:49 Ondansetron HCl (Zofran) 4 mg Q4H PRN IVP Nausea & Vomiting 10/06/18 11:15 11/05/18 11:14 Promethazine HCl/ Codeine (Phenergan with Codeine) 5 ml Q4H PRN ORAL For Cough 10/06/18 11:45 11/04/18 11:44 Sitagliptin Phosphate (Januvia) 50 mg ACBREAKFAST ORAL 10/07/18 06:30 11/05/18 06:29 10/07/18 05:59 Sodium Chloride 1,000 ml @ 150 mls/hr Q6H40M IV 10/06/18 11:14 11/05/18 11:13 10/07/18 15:23 Allergies: Coded Allergies: No Known Allergies (Unverified , 02/27/18) Subjective Awake, alert, responsive, no acute distress, no nausea, no vomiting, denies any chest pain or shortness of breath. Objective Last Vital Signs Date Time Temp Pulse Resp B/P (MAP) Pulse Ox O2 Delivery O2 Flow Rate FiO2 10/07/18 21:00 Room Air 10/07/18 20:00 98.5 73 19 150/60 (90) 98 10/07/18 08:40 21 Laboratory Tests Test 10/07/18 08:15 White Blood Count 10.9 K/UL (4.8-10.8) H Red Blood Count 3.54 M/UL (4.20-5.40) L Hemoglobin 8.1 G/DL (12.0-16.0) L Hematocrit 26.6 % (37.0-47.0) L Mean Corpuscular Volume 75 FL (80-99) L Mean Corpuscular Hemoglobin 23.0 PG (27.0-31.0) L Mean Corpuscular Hemoglobin Concent 30.6 G/DL (32.0-36.0) L Red Cell Distribution Width 13.3 % (11.6-14.8) Platelet Count 215 K/UL (150-450) Mean Platelet Volume 7.5 FL (6.5-10.1) Neutrophils (%) (Auto) 70.4 % (45.0-75.0) Lymphocytes (%) (Auto) 15.0 % (20.0-45.0) L Monocytes (%) (Auto) 9.6 % (1.0-10.0) Eosinophils (%) (Auto) 3.5 % (0.0-3.0) H Basophils (%) (Auto) 1.4 % (0.0-2.0) Erythrocyte Sedimentation Rate 118 MM/HR (0-30) H Sodium Level 139 MMOL/L (136-145) Potassium Level 3.7 MMOL/L (3.5-5.1) Chloride Level 107 MMOL/L (98-107) Carbon Dioxide Level 21 MMOL/L (21-32) Anion Gap 11 mmol/L (5-15) Blood Urea Nitrogen 30 mg/dL (7-18) H Creatinine 1.6 MG/DL (0.55-1.30) H Estimat Glomerular Filtration Rate mL/min (>60) Glucose Level 115 MG/DL (74-106) H Calcium Level 8.5 MG/DL (8.5-10.1) Phosphorus Level 3.0 MG/DL (2.5-4.9) Magnesium Level 2.0 MG/DL (1.8-2.4) Total Bilirubin 0.3 MG/DL (0.2-1.0) Aspartate Amino Transf (AST/SGOT) 22 U/L (15-37) Alanine Aminotransferase (ALT/SGPT) 10 U/L (12-78) L Alkaline Phosphatase 106 U/L (46-116) C-Reactive Protein, Quantitative 21.4 mg/dL (0.00-0.90) H Total Protein 6.8 G/DL (6.4-8.2) Albumin 2.0 G/DL (3.4-5.0) L Globulin 4.8 g/dL Albumin/Globulin Ratio 0.4 (1.0-2.7) L Microbiology Date/Time Source Procedure Growth Status 10/05/18 00:15 Blood Blood Culture - Preliminary NO GROWTH AFTER 48 HOURS Resulted 10/05/18 00:00 Blood Blood Culture - Preliminary NO GROWTH AFTER 48 HOURS Resulted 10/05/18 16:30 Sputum Gram Stain - Final Complete 10/05/18 16:30 Sputum Sputum Culture - Final NORMAL UPPER RESPIRATORY VICTORINO AT 48 ... Complete 10/05/18 22:12 Stool Clostridium difficile Toxin Assay - Final Complete 10/05/18 00:40 Urine,Clean Catch Urine Culture - Final Diphtheroids Complete 10/06/18 19:00 Leg Left Gram Stain - Final Resulted 10/06/18 19:00 Leg Left Wound Culture - Preliminary Resulted Intake and Output 10/06/18 10/07/18 19:00 07:00 Intake Total 1695 ml 1160 ml Output Total 250 ml Balance 1445 ml 1160 ml Intake Oral 720 ml IV Total 975 ml 1160 ml Output Urine Total 250 ml # Voids 3 5 # Bowel Movements 1 Objective GENERAL: Awake and responsive, in no acute distress. HEAD AND NECK: Pupils are equal and reactive to light. Extraocular movements intact. Neck was supple. No JVD. LUNGS: Good air entry with no wheezing or rales. HEART: S1, S2. Regular rhythm. No Murmur or gallops. ABDOMEN: Soft, nondistended, and nontender. Morbidly obese. EXTREMITIES: No cyanosis or clubbing. left lower extremity edema with erythematous, redness. Left foot ulceration in 4th metatarsal with minimal discharge. NEUROLOGIC: Cranial nerves II through XII grossly intact. Motor is 5/5 in all extremities. Gait is intact. RECTAL/GENITOURINARY: Refused and deferred. PSYCHIATRIC: Mood and affect is intact. Assessment/Plan Assessment/Plan ASSESSMENT: 1. Shortness of breath and cough, possible due to the bronchopneumonia. 2. Hypertension. 3. Dyslipidemia. 4. Morbid obesity. 5. Sepsis secondary to the bronchitis or early bronchopneumonia. 6. Chronic kidney disease. 7. History of left lower extremity cellulitis. 8. Anemia. PLAN: Transfer to Medical Unit. Follow up with the cultures and laboratory Broad spectrum antibiotics: Cefepime, Vanco IV, azithromycin. Follow up with Pulmonary consultation with Dr. Ambriz, ID consultation with Dr. Plummer, Podiatry consult with Dr. Elizondo, Nebulizer treatment as needed. Code status: Full Code. DVT prophylaxis: heparin subcutaneous. MRI of Left foot. Vascular study of Bilateral LE's Dr. Jacobsonarian consultation. Cirilo Blancas M.D. Cirilo Blancas MD Oct 07, 2018 21:57
[2018-10-07] MEDS: Cefepime HCl 500 MG in D5W 55 ML IVPB SCH (22:02)
[2018-10-08] VITALS (9 sets, daily range): BP systolic 152–202; BP diastolic 68–92
--- NOTE | 2018-10-08 | General Progress Note ---
Progress Note Progress Note Patient seen and examined Left toe wound necrosis DM Obesity HTN Palpable femoral popliteal and foot left DP pulses 3+ Bilateral leg venous stasis changes with left leg cellulitis Rec Abx per ID DVT precautions Leg carotid duplex and echo MRI left foot and ok for left toe amp per podiatry if needed d/w pt and nurse d/w pmd and podiatry Donovan Garvey MD Oct 08, 2018 00:00
--- NOTE | 2018-10-08 05:45 | Consultation ---
DATE OF CONSULTATION: 10/07/2018 CONSULTING PHYSICIAN: Donovan Garvey M.D. REFERRING PHYSICIAN: Cirilo Blancas M.D. REASON FOR CONSULTATION: Left toe wound and ulceration. HISTORY OF PRESENT ILLNESS: The patient is a 73-year-old female with history of diabetes, hypertension, and renal insufficiency. The patient presented with left toe infection and ulceration. Vascular Surgery was consulted for evaluation. The patient currently has no other complaint. PAST MEDICAL HISTORY: As above. History of obesity, hypertension, diabetes mellitus, renal insufficiency, chronic anemia, dyslipidemia, and leg edema. MEDICATIONS: See attached MAR. ALLERGIES: No known drug allergies. SOCIAL HISTORY: No history of smoking, drugs, or alcohol use. FAMILY HISTORY: Unremarkable. SYSTEMS REVIEW: CARDIOVASCULAR: No history of chest pain or palpitation. PULMONARY: No cough. No hemoptysis. GASTROINTESTINAL: No history of abdominal pain, constipation, or diarrhea. GENITOURINARY: No urinary symptoms. NEUROLOGIC: No history of strokes or seizures. PHYSICAL EXAMINATION: GENERAL: Elderly female. VITAL SIGNS: Afebrile. Temperature 98.5 degrees, heart rate 83, blood pressure is 150/60, respirations 19, and O2 saturation 98% on room air. NECK: The patient has palpable radial pulses. No evidence of carotid bruits. LUNGS: Clear to auscultation. HEART: Regular rate and rhythm. ABDOMEN: Soft and nontender. EXTREMITIES: She has a palpable femoral pulses. Palpable posterior tibial and dorsalis pedal pulses bilaterally 2+, but not too extreme. She does have left leg cellulitis with bilateral leg venous stases and edema and left fifth toe had ulceration with minimal discharge and drainage. Her feet are warm. LABORATORY DATA: Revealed WBC of 10.9, hemoglobin 8.1, and platelet count of 215,000. Sodium 139, potassium 3.7, chloride 97, CO2 31, BUN of 30, creatinine 1.6, and glucose 115. IMPRESSION: 1. Left toe infection, rule out underlying osteomyelitis. 2. Left leg cellulitis with bilateral leg venous stases edema. 3. Palpable dorsalis pedis pulses, 3+ on examination. 4. Multiple risk factors with morbid obesity. 5. Renal failure. 6. Diabetes mellitus. 7. Hypertension. 8. Anemia. 9. Dyslipidemia. PLAN AND RECOMMENDATIONS: 1. DVT and decubitus precautions. 2. Continue dialysis through left arm cephalic vein. 3. Leg elevation. Obtain left foot MRI to evaluate for osteomyelitis. The patient is cleared for left toe ulcer amputation. The patient will be seen by Podiatry service. Continue antibiotics per Infectious Diseases service. 4. She will continue antibiotics, wound care of the legs, carotid, echocardiogram, and renal optimization in progress. Donovan Garvey M.D. DR: Gregorio JOB#: [id number] CC:
[2018-10-08] MEDS: NovoLOG Insulin Flexpen SUBQ SCH ×4 (05:56→20:27)
[2018-10-08] MEDS: sitaGLIPtin 50mg tab ORAL SCH (05:57)
[2018-10-08] MEDS: Heparin 5000 units/ml inj SUBQ SCH ×3 (05:57→22:00)
--- NOTE | 2018-10-08 07:27 | NUR ---
HAND-OFF: Report given to GEORGE Mcduffie. Pt stable, endorsed lft ft xray portable, keep both legs elevated on 2 pillows, jose carotid duplex, arterial duplex scan, 2D echo for 10/08/18, left foot dressing cleaned and dressed last night.
--- NOTE | 2018-10-08 08:07 | NUR ---
RADIOLOGY DEPT., LEFT FOOT X-RAY COMPLETED.-P.DYE
[2018-10-08] MEDS: Enalapril 5mg tab ORAL SCH (08:21)
[2018-10-08] MEDS: Azithromycin 250mg tab ORAL SCH (08:21)
[2018-10-08] MEDS: HydrALAZINE 25mg tab ORAL PRN ×2 (08:21→19:55)
--- NOTE | 2018-10-08 09:19 | NUR ---
NURSE NOTES: Received pt from GEORGE LANDA. Pt is alert and orient x4. pt is in RA, no SOB or acute respiratory distress noted. pt has intact iv access R wrist 22G is running well. pt is eating breakfast independently. all needs attended, bed is locked and is in the lowest position. call light within easy reach. will continue to monitor.
--- NOTE | 2018-10-08 10:56 | Diagnostic Imaging Report ---
Indication: Pain and swelling Technique: 3 views left foot Comparison: 12/05/2018 Findings: Osteoporosis and hammertoe deformity limit evaluation, particularly of the distal digits. There is evidence of interim osteotomy of the third metatarsal. There is hallux valgus and bunion formation. There is hammertoe deformity of the second through fifth digits. No definite osseous erosions or unusual periosteal reaction demonstrated. No acute fractures There are fairly extensive vascular calcifications. Impression: Postsurgical changes, as described No acute bony trauma No plain radiographic evidence of osteomyelitis. Note, however, limited sensitivity of plain radiographs for such. Consider MRI or bone scan for better characterization if clinically indicated Deformities, as described Postsurgical changes
--- NOTE | 2018-10-08 12:26 | NUR ---
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 CELLULITIS VS: BP 177/77, P 72, T 97.5, RR 16, SpO2 95 FOOT XRAY: There is evidence of interim osteotomy of the third metatarsal. There are fairly extensive vascular calcifications. IS:NS x1L IV ZITHROMAX 250mg VASOTEC 5mg APRESOLINE 25mg JANUVIA 50mg HEPARIN SUBQ NOVOLOG SUBQ CEFEPIME 55ml IVPB PLAN: DVT and decubitus precautions. Leg elevation LEFT FOOT MRI MED/SURG STATUS
--- NOTE | 2018-10-08 12:29 | NUR ---
NURSE NOTES: Dr PEREZ visited pt and he is notified about HTN, ordered Norvasc 10mg QD, noted and carried out. will continue to monitor.
--- NOTE | 2018-10-08 12:45 | Pulmonology Progress Note ---
Assessment/Plan Problems: (1) Cellulitis (2) Sepsis (3) Acute encephalopathy (4) UTI (urinary tract infection) (5) ATN (acute tubular necrosis) (6) Diabetes mellitus type II, uncontrolled (7) Acute bronchitis (8) Anemia (9) Venous stasis of lower extremity (10) HTN (hypertension) (11) Peripheral neuropathy Assessment/Plan pt was running up and down the [place], sinus at 85 f/u renal improving continue abx check electrolytes check cultures dc planning in 1-2 days Subjective ROS Limited/Unobtainable: No Constitutional: Reports: no symptoms HEENT: Repors: no symptoms Respiratory: Reports: no symptoms Allergies: Coded Allergies: No Known Allergies (Unverified , 02/27/18) Objective Last 24 Hour Vital Signs Date Time Temp Pulse Resp B/P (MAP) Pulse Ox O2 Delivery O2 Flow Rate FiO2 10/08/18 12:00 98.6 74 18 192/90 (124) 97 10/08/18 10:00 165/72 (103) 10/08/18 09:00 Room Air 10/08/18 08:21 177/77 10/08/18 08:21 177/77 10/08/18 08:16 72 16 99 Room Air 21 10/08/18 08:00 98.6 77 19 177/77 (110) 95 10/08/18 04:00 97.5 78 19 169/68 (101) 98 10/08/18 00:00 98.1 73 18 152/77 (102) 97 10/07/18 21:00 Room Air 10/07/18 20:00 76 18 98 Room Air 21 10/07/18 20:00 98.5 73 19 150/60 (90) 98 10/07/18 16:00 98.1 79 19 138/69 (92) 98 Intake and Output 10/07/18 10/08/18 19:00 07:00 Intake Total 2000 ml 5500 ml Balance 2000 ml 5500 ml Intake Oral 240 ml IV Total 1350 ml 4610 ml Other 650 ml 650 ml # Voids 3 # Bowel Movements 1 General Appearance: WD/WN HEENT: normocephalic, anicteric Cardiovascular: normal peripheral pulses, normal rate, no JVD Abdomen: no scars Genitourinary: normal external genitalia Extremities: no cyanosis Skin: no rash Microbiology Date/Time Source Procedure Growth Status 10/05/18 16:30 Sputum Gram Stain - Final Complete 10/05/18 16:30 Sputum Sputum Culture - Final NORMAL UPPER RESPIRATORY VICTORINO AT 48 ... Complete 10/05/18 22:12 Stool Clostridium difficile Toxin Assay - Final Complete 10/06/18 19:00 Leg Left Gram Stain - Final Resulted 10/06/18 19:00 Wound Culture - Preliminary Staphylococcus Sp Coag Neg Resulted Current Medications Medications (Trade) Dose Ordered Sig/Alfonso Route PRN Reason Start Time Stop Time Status Last Admin Dose Admin Acetaminophen (Tylenol) 650 mg Q6H PRN ORAL Mild Pain/Temp > 100.5 10/06/18 11:15 11/05/18 11:14 Acetaminophen/ Hydrocodone Bitart ([place] 5/325) 1 tab Q6H PRN ORAL Moderate Pain (Pain Scale 4-6) 10/06/18 11:15 10/13/18 11:14 Albuterol/ Ipratropium (Albuterol/ Ipratropium) 3 ml Q4H PRN HHN Shortness of Breath 10/06/18 11:15 10/11/18 11:14 Amlodipine Besylate (Norvasc) 10 mg DAILY ORAL 10/08/18 13:00 11/07/18 12:59 Azithromycin (Zithromax) 250 mg DAILY ORAL 10/07/18 09:00 10/09/18 12:00 10/08/18 08:21 Cefepime HCl 500 mg/Dextrose 55 ml @ 110 mls/hr Q24H IVPB 10/06/18 22:00 10/12/18 21:59 10/07/18 22:02 Dextrose (Dextrose 50%) 25 ml Q30M PRN IV Hypoglycemia 10/06/18 11:30 11/04/18 08:59 Dextrose (Dextrose 50%) 50 ml Q30M PRN IV Hypoglycemia 10/06/18 11:30 11/04/18 08:59 Enalapril Maleate (Vasotec) 5 mg DAILY ORAL 10/07/18 09:00 11/04/18 09:59 10/08/18 08:21 Heparin Sodium (Porcine) (Heparin 5000 units/ml) 5,000 units EVERY 8 HOURS SUBQ 10/08/18 06:00 11/07/18 05:59 10/08/18 05:57 Hydralazine HCl (Apresoline) 25 mg Q6H PRN ORAL for SBP >160 10/06/18 11:15 11/05/18 11:14 10/08/18 08:21 Insulin Aspart (NovoLOG) BEFORE MEALS AND HS SUBQ 10/06/18 11:30 11/04/18 11:29 10/08/18 05:56 Ondansetron HCl (Zofran) 4 mg Q4H PRN IVP Nausea & Vomiting 10/06/18 11:15 11/05/18 11:14 Promethazine HCl/ Codeine (Phenergan with Codeine) 5 ml Q4H PRN ORAL For Cough 10/06/18 11:45 11/04/18 11:44 Sitagliptin Phosphate (Januvia) 50 mg ACBREAKFAST ORAL 10/07/18 06:30 11/05/18 06:29 10/08/18 05:57 Sodium Chloride 1,000 ml @ 150 mls/hr Q6H40M IV 10/06/18 11:14 11/05/18 11:13 10/08/18 08:21 Dong Ambriz MD Oct 08, 2018 12:45
--- NOTE | 2018-10-08 13:00 | NUR ---
NURSE NOTES: pt refused NORVASC, med waisted in med room.
--- NOTE | 2018-10-08 13:02 | NUR ---
MRI LEFT FOOT COMPLETED
--- NOTE | 2018-10-08 14:52 | NUR ---
Social Service Note ROSITA spoke with patient's son Dayne Herrera [phone] to complete home safety evaluation. Patient lives at home with son and his . Patient's son and work during the day. When patient was being followed by home health patient was doing well, but now left to her own accord patient isn't taking medication as ordered and doesn't follow up on scheduled appointments. Son is not sure if patient has medi-erika for IHSS. Message left for insurance AUSTEN Garcia [phone] regarding patient's benefits. Patient with previous stays at [facility] and [facility]. Patient would prefer [facility] if SNF is required. Pending MRI results to rule out Osteo. Son states if patient requires IV antibiotics then patient will require SNF placement. However son's preference is for patient to return home. Patient was independent prior to admission. Will discuss with CM. Will monitor and follow up as needed.
--- NOTE | 2018-10-08 15:11 | Diagnostic Imaging Report ---
Indication: Foot and toe infection Technique: Sagittal, axial, and coronal T1 FSE and FSE STIR images obtained of the forefoot Comparison: 08/06/2014,, plain radiograph of earlier the same day Findings: Patient is status post osteotomy versus old ununited fracture of the third metatarsal neck. There does appear to be the head of the third metatarsal in place, detached from the neck. There is subluxation or dislocation of the base of the third proximal phalanx from the metatarsal neck, however. Increased STIR signal and slightly decreased T1 signal is seen within the fourth proximal phalanx. More questionable increased STIR signal is seen within the distal fourth metatarsal without definite T1 signal abnormality. Very questionable subtle increased STIR signal is seen within the fifth proximal phalanx without definite T1 signal abnormality. No discrete collection to suggest abscess demonstrated. These findings are new since prior study The third metatarsal head and proximal phalangeal signal abnormality demonstrated on the previous study are not evident currently. The deformity of the third metatarsal head is a new finding. There is extensive soft tissue edema. This appears to be circumferential throughout the subcutaneous fat but most striking at the dorsal surface. There is also edema of the deep compartments No definite ulcers or soft tissue gas demonstrated. Impression: Increased STIR and subtle slightly decreased T1 signal within the fourth proximal phalanx this is concerning for acute osteomyelitis. More questionable increased STIR signal in the distal fourth metatarsal and metatarsal head without definite T1 signal abnormality may be reactive versus representing acute early osteomyelitis Questionable subtle increased STIR signal within the fifth proximal phalanx without definite T1 signal abnormality. This could represent very early osteomyelitis versus reactive change. Evidence of either prior third metatarsal osteotomy versus ununited fracture, new since prior exam of 2014 Diffuse edema of the subcutaneous fat, particularly dorsally, as well as the deep compartments. This could represent cellulitis versus edema of vasogenic origin. No discrete collection to suggest abscess demonstrated.
--- NOTE | 2018-10-08 16:00 | NUR ---
NURSE NOTES: pt refuses any PRN BP meds x3 attempts. explained risks. Dr PEREZ and AGUSTÍN DOMINGUEZ notified. AGUSTÍN DOMINGUEZ spoke with pt but she still refuses. will continue to monitor.
--- NOTE | 2018-10-08 18:15 | NUR ---
NURSE NOTES: Dr PEREZ is notified about HTN, ordered to transfer pt to tele and clonidine 0.1mg PRN Q6HRS, orders noted and carried out but pt again refused BP meds, Dr PEREZ notified. will continue to monitor.
--- NOTE | 2018-10-08 18:19 | NUR ---
NURSE NOTES: TELE doesn't have bed available, we still waiting for bed. will continue to monitor.
--- NOTE | 2018-10-08 18:20 | Infectious Diseases Prog Note ---
Assessment/Plan Assessment/Plan Abx: Cefepime 10/05- Azithromycin 10/05- Ceftriaxone x1 10/05 Assessment: Sepsis- 2ry to acute bronchitis vs early PNA -u/a no pyuria; ucx diptheroids -Bcx NTD -CXR: Query mild pulmonary vascular congestion -sp cx normal lior Afebrile Leukocytosis DM2 HTN hx of leg cellulitis Plan: -Continue empiric Cefepime and Azithromycin #5/7 -f/u cx -Monitor CBC/CMP, temperatures -sp cx -aspiration precautions -Cdiff if diarrhea Thank you for this consultation. Will continue to follow along with you. Subjective Allergies: Coded Allergies: No Known Allergies (Unverified , 02/27/18) Subjective afebrile in ~48hrs leukocytosis resolving Bcx NTD Objective Vital Signs Last 24 Hour Vital Signs Date Time Temp Pulse Resp B/P (MAP) Pulse Ox O2 Delivery O2 Flow Rate FiO2 10/08/18 17:58 185/85 (118) 10/08/18 16:00 98.1 75 17 202/92 (128) 99 10/08/18 14:00 177/85 (115) 10/08/18 13:21 74 192/90 10/08/18 12:00 98.6 74 18 192/90 (124) 97 10/08/18 10:00 165/72 (103) 10/08/18 09:00 Room Air 10/08/18 08:21 177/77 10/08/18 08:21 177/77 10/08/18 08:16 72 16 99 Room Air 21 10/08/18 08:00 98.6 77 19 177/77 (110) 95 10/08/18 04:00 97.5 78 19 169/68 (101) 98 10/08/18 00:00 98.1 73 18 152/77 (102) 97 10/07/18 21:00 Room Air 10/07/18 20:00 76 18 98 Room Air 21 10/07/18 20:00 98.5 73 19 150/60 (90) 98 Height (Feet): 5 Height (Inches): 4.00 Weight (Pounds): 185 Objective General Appearance: NAD HEENT: NCAT, MMM, EOMI Respiratory: chest non-tender, lungs clear, normal breath sounds Cardiovascular: regular rate, rhythm, no murmur Gastrointestinal: normal bowel sounds, non tender, non-distended Microbiology Date/Time Source Procedure Growth Status 10/05/18 22:12 Stool Clostridium difficile Toxin Assay - Final Complete 10/06/18 19:00 Leg Left Gram Stain - Final Resulted 10/06/18 19:00 Wound Culture - Preliminary Staphylococcus Sp Coag Neg Resulted Current Medications Medications (Trade) Dose Ordered Sig/Alfonso Route PRN Reason Start Time Stop Time Status Last Admin Dose Admin Acetaminophen (Tylenol) 650 mg Q6H PRN ORAL Mild Pain/Temp > 100.5 10/06/18 11:15 11/05/18 11:14 Acetaminophen/ Hydrocodone Bitart ([place] 5/325) 1 tab Q6H PRN ORAL Moderate Pain (Pain Scale 4-6) 10/06/18 11:15 10/13/18 11:14 Albuterol/ Ipratropium (Albuterol/ Ipratropium) 3 ml Q4H PRN HHN Shortness of Breath 10/06/18 11:15 10/11/18 11:14 Amlodipine Besylate (Norvasc) 10 mg DAILY ORAL 10/08/18 13:00 11/07/18 12:59 10/08/18 13:21 Azithromycin (Zithromax) 250 mg DAILY ORAL 10/07/18 09:00 10/09/18 12:00 10/08/18 08:21 Cefepime HCl 500 mg/Dextrose 55 ml @ 110 mls/hr Q24H IVPB 10/06/18 22:00 10/12/18 21:59 10/07/18 22:02 Clonidine HCl (Catapres Tab) 0.1 mg Q6HR PRN ORAL For High Blood Pressure 10/08/18 18:15 11/07/18 18:14 UNV Dextrose (Dextrose 50%) 25 ml Q30M PRN IV Hypoglycemia 10/06/18 11:30 11/04/18 08:59 Dextrose (Dextrose 50%) 50 ml Q30M PRN IV Hypoglycemia 10/06/18 11:30 11/04/18 08:59 Enalapril Maleate (Vasotec) 5 mg DAILY ORAL 10/07/18 09:00 11/04/18 09:59 10/08/18 08:21 Heparin Sodium (Porcine) (Heparin 5000 units/ml) 5,000 units EVERY 8 HOURS SUBQ 7/15/19 06:00 11/07/18 05:59 10/08/18 13:15 Hydralazine HCl (Apresoline) 25 mg Q6H PRN ORAL for SBP >160 10/06/18 11:15 11/05/18 11:14 10/08/18 08:21 Insulin Aspart (NovoLOG) BEFORE MEALS AND HS SUBQ 10/06/18 11:30 11/04/18 11:29 10/08/18 17:06 Ondansetron HCl (Zofran) 4 mg Q4H PRN IVP Nausea & Vomiting 10/06/18 11:15 11/05/18 11:14 Promethazine HCl/ Codeine (Phenergan with Codeine) 5 ml Q4H PRN ORAL For Cough 10/06/18 11:45 11/04/18 11:44 Sitagliptin Phosphate (Januvia) 50 mg ACBREAKFAST ORAL 10/07/18 06:30 11/05/18 06:29 10/08/18 05:57 Sodium Chloride 1,000 ml @ 150 mls/hr Q6H40M IV 10/06/18 11:14 11/05/18 11:13 10/08/18 17:04 Doris Plummer M.D. Oct 08, 2018 18:20
--- NOTE | 2018-10-08 19:41 | NUR ---
HAND-OFF: Report given to RN RADHA.
--- NOTE | 2018-10-08 20:00 | NUR ---
NURSE NOTES: RECEIVED PT FROM GEORGE ORDONEZ. PT IS AWAKE, AAO X4, SITTING UP IN BED WITH FAMILY MEMBER AT BEDSIDE. PT IS ON ROOM AIR, DENIES SOB, O2 SAT AT 98%. BP NOTED AT 214/87. PRN HYDRALAZINE 25 MG GIVEN. IV ON RIGHT WRIST 22G IS INTACT AND PATENT, CURRENTLY RUNNING NS AT 150ML/HR. EDEMA PITTING +1 NOTED ON BILATERAL LEGS. DRESSINGS ON LEFT LEG IS INTACT AND DRY. PT IS AWARE OF TRANSFER ORDER TO [facility] ROOM 211-1. PT REVIEWED AND SIGNED BELONGING LIST. BED IS LOCKED AT THE LOWEST POSITION, BED ALARMS ACTIVE, SIDE RAILS UP X2, AND CALL LIGHT IS WITHIN REACH. WILL CONTINUE TO MONITOR.
--- NOTE | 2018-10-08 21:00 | NUR ---
NURSE NOTES: BP AT 171/82 AFTER GIVEN HYDRALAZINE 25 MG.
--- NOTE | 2018-10-08 21:05 | NUR ---
NURSE NOTES: TRANSFERRED PT TO TELE UNIT ROOM 211-1. REPORT GIVEN TO GEORGE GUNN. PT IS IN STABLE CONDITION.
--- NOTE | 2018-10-08 21:06 | NUR ---
NURSE NOTES: received pt from [facility], RN - transfer from 4th floor. Pt is alert and oriented x4. pt is on RA, no SOB or acute respiratory distress noted. pt has intact iv access R wrist 22G bed is locked, in lowest position, side railsx2, bed alarm on. Son is with pt at bedside. call light within reach. Will continue to monitor.
[2018-10-08] MEDS: Cefepime HCl 500 MG in D5W 55 ML IVPB SCH (22:47)
--- NOTE | 2018-10-08 23:26 | Internal Med Progress Note ---
Subjective Physician Name Cirilo Blancas Attending Physician Cirilo Blancas MD Current Medications Medications (Trade) Dose Ordered Sig/Alfonso Route PRN Reason Start Time Stop Time Status Last Admin Dose Admin Acetaminophen (Tylenol) 650 mg Q6H PRN ORAL Mild Pain/Temp > 100.5 10/06/18 11:15 11/05/18 11:14 Acetaminophen/ Hydrocodone Bitart ([place] 5/325) 1 tab Q6H PRN ORAL Moderate Pain (Pain Scale 4-6) 10/06/18 11:15 10/13/18 11:14 Albuterol/ Ipratropium (Albuterol/ Ipratropium) 3 ml Q4H PRN HHN Shortness of Breath 10/06/18 11:15 10/11/18 11:14 Amlodipine Besylate (Norvasc) 10 mg DAILY ORAL 10/08/18 13:00 11/07/18 12:59 Azithromycin (Zithromax) 250 mg DAILY ORAL 10/07/18 09:00 10/09/18 12:00 10/08/18 08:21 Cefepime HCl 500 mg/Dextrose 55 ml @ 110 mls/hr Q24H IVPB 10/06/18 22:00 10/12/18 21:59 10/08/18 22:47 Clonidine HCl (Catapres Tab) 0.1 mg Q6HR PRN ORAL For High Blood Pressure 10/08/18 18:15 11/07/18 18:14 UNV Dextrose (Dextrose 50%) 25 ml Q30M PRN IV Hypoglycemia 10/06/18 11:30 11/04/18 08:59 Dextrose (Dextrose 50%) 50 ml Q30M PRN IV Hypoglycemia 10/06/18 11:30 11/04/18 08:59 Enalapril Maleate (Vasotec) 5 mg DAILY ORAL 10/07/18 09:00 11/04/18 09:59 10/08/18 08:21 Heparin Sodium (Porcine) (Heparin 5000 units/ml) 5,000 units EVERY 8 HOURS SUBQ 10/08/18 06:00 11/07/18 05:59 10/08/18 13:15 Hydralazine HCl (Apresoline) 25 mg Q6H PRN ORAL for SBP >160 10/06/18 11:15 11/05/18 11:14 10/08/18 19:55 Insulin Aspart (NovoLOG) BEFORE MEALS AND HS SUBQ 10/06/18 11:30 11/04/18 11:29 10/08/18 20:27 Ondansetron HCl (Zofran) 4 mg Q4H PRN IVP Nausea & Vomiting 10/06/18 11:15 11/05/18 11:14 Promethazine HCl/ Codeine (Phenergan with Codeine) 5 ml Q4H PRN ORAL For Cough 10/06/18 11:45 11/04/18 11:44 Sitagliptin Phosphate (Januvia) 50 mg ACBREAKFAST ORAL 10/07/18 06:30 11/05/18 06:29 10/08/18 05:57 Sodium Chloride 1,000 ml @ 150 mls/hr Q6H40M IV 10/06/18 11:14 11/05/18 11:13 10/08/18 22:49 Allergies: Coded Allergies: No Known Allergies (Unverified , 02/27/18) Subjective Awake, alert, responsive, no acute distress, no nausea, no vomiting, denies any chest pain or shortness of breath. Objective Last Vital Signs Date Time Temp Pulse Resp B/P (MAP) Pulse Ox O2 Delivery O2 Flow Rate FiO2 10/08/18 21:00 97.8 78 18 197/84 (121) 99 10/08/18 20:45 Room Air 21 Microbiology Date/Time Source Procedure Growth Status 10/06/18 19:00 Leg Left Gram Stain - Final Resulted 10/06/18 19:00 Wound Culture - Preliminary Staphylococcus Sp Coag Neg Resulted Intake and Output 10/07/18 10/08/18 19:00 07:00 Intake Total 2000 ml 5500 ml Balance 2000 ml 5500 ml Intake Oral 240 ml IV Total 1350 ml 4610 ml Other 650 ml 650 ml # Voids 3 # Bowel Movements 1 Objective GENERAL: Awake and responsive, in no acute distress. HEAD AND NECK: Pupils are equal and reactive to light. Extraocular movements intact. Neck was supple. No JVD. LUNGS: Good air entry with no wheezing or rales. HEART: S1, S2. Regular rhythm. No Murmur or gallops. ABDOMEN: Soft, nondistended, and nontender. Morbidly obese. EXTREMITIES: No cyanosis or clubbing. left lower extremity edema with erythematous, redness. Left foot ulceration in 4th metatarsal with minimal discharge. NEUROLOGIC: Cranial nerves II through XII grossly intact. Motor is 5/5 in all extremities. Gait is intact. RECTAL/GENITOURINARY: Refused and deferred. PSYCHIATRIC: Mood and affect is intact. Assessment/Plan Assessment/Plan ASSESSMENT: 1. Shortness of breath and cough, possible due to the bronchopneumonia. 2. Hypertension. 3. Dyslipidemia. 4. Morbid obesity. 5. Sepsis secondary to the bronchitis or early bronchopneumonia. 6. Chronic kidney disease. 7. History of left lower extremity cellulitis. 8. Anemia. 9. Left foot DM ulcer with acute osteomyelitis PLAN: Transfer to Medical Unit. Follow up with the cultures and laboratory Broad spectrum antibiotics: Cefepime, Vanco IV, azithromycin. Follow up with Pulmonary consultation with Dr. Ambriz, ID consultation with Dr. Plummer, Podiatry consult with Dr. Elizondo, Nebulizer treatment as needed. Code status: Full Code. DVT prophylaxis: heparin subcutaneous. Dr. Jacobsonarian consultation noted MRI of Left foot: Impression: Increased STIR and subtle slightly decreased T1 signal within the fourth proximal phalanx this is concerning for acute osteomyelitis. More questionable increased STIR signal in the distal fourth metatarsal and metatarsal head without definite T1 signal abnormality may be reactive versus representing acute early osteomyelitis Questionable subtle increased STIR signal within the fifth proximal phalanx without definite T1 signal abnormality. This could represent very early osteomyelitis versus reactive change. Evidence of either prior third metatarsal osteotomy versus ununited fracture, new since prior exam of 2014 Diffuse edema of the subcutaneous fat, particularly dorsally, as well as the deep compartments. This could represent cellulitis versus edema of vasogenic origin. No discrete collection to suggest abscess demonstrated. Cirilo Blancas M.D. Cirilo Blancas MD Oct 08, 2018 23:26
[2018-10-09] VITALS (9 sets, daily range): BP systolic 136–211; BP diastolic 74–93
[2018-10-09] MEDS: HydrALAZINE 25mg tab ORAL PRN (04:12)
[2018-10-09] MEDS: sitaGLIPtin 50mg tab ORAL SCH (06:39)
[2018-10-09] MEDS: NovoLOG Insulin Flexpen SUBQ SCH ×4 (06:40→21:13)
[2018-10-09] MEDS: Heparin 5000 units/ml inj SUBQ SCH ×3 (06:41→21:12)
--- NOTE | 2018-10-09 07:17 | NUR ---
HAND-OFF: Report given to GEORGE Parks.
--- NOTE | 2018-10-09 07:30 | NUR ---
NURSE NOTES: Received report from Leatha/RN, Patient is awake, eating breakfast, no acute distress/SOB noted. . Checked IV, patent and intact, no bleeding or infiltration noted, NS running at 150 cc/hr. Bed in lowest position and locked, Call light within reach. Will continue plan of care.
[2018-10-09] MEDS: Enalapril 5mg tab ORAL SCH ×2 (09:00→09:01)
[2018-10-09] MEDS: Azithromycin 250mg tab ORAL SCH (09:01)
--- NOTE | 2018-10-09 09:06 | NUR ---
FORM [employer]ESS[employer] SI:LEFT FOOT DM ULCER WITH ACUTE OSTEOMYELITIS . ACUTE BRONCHITIS VS: BP 205/90, P 96, T 98.0, RR 16, SpO2 98 IS:ZITHROMAX 250mg VASOTEC 5mg NORVASC 10mg CLONIDINE 0.1mg HEPARIN SUBQ NOVOLOG SUBQ NSx1L IV JANUVIA 50mg APRESOLINE 25mg CEFEPIME 55ml IVPB PLAN: LEG CAROTID DUPLEX ECHO KEEP BOTH LEGS ELEVATED POSSIBLE AMPUTATION TELE STATUS
--- NOTE | 2018-10-09 09:15 | NUR ---
NURSE NOTES: Patient blood pressure is 205/90, and pt refused her routine blood pressure medications.
--- NOTE | 2018-10-09 12:25 | Pulmonology Progress Note ---
Assessment/Plan Problems: (1) HTN (hypertension) Assessment & Plan: pt refused bp medication at times (2) Osteomyelitis (3) Acute bronchitis (4) Cellulitis (5) Sepsis (6) UTI (urinary tract infection) (7) ATN (acute tubular necrosis) (8) Anemia (9) Venous stasis of lower extremity (10) Peripheral neuropathy (11) Diabetes mellitus type II, uncontrolled Assessment/Plan MRI reviewed: Impression: Increased STIR and subtle slightly decreased T1 signal within the fourth proximal phalanx this is concerning for acute osteomyelitis. More questionable increased STIR signal in the distal fourth metatarsal and metatarsal head without definite T1 signal abnormality may be reactive versus representing acute early osteomyelitis all reviewed sinus at 85 f/u renal improving continue abx check electrolytes Subjective ROS Limited/Unobtainable: No Constitutional: Reports: no symptoms HEENT: Repors: no symptoms Allergies: Coded Allergies: No Known Allergies (Unverified , 02/27/18) Objective Last 24 Hour Vital Signs Date Time Temp Pulse Resp B/P (MAP) Pulse Ox O2 Delivery O2 Flow Rate FiO2 10/09/18 09:30 78 192/74 (113) 10/09/18 09:00 Room Air 10/09/18 09:00 205/90 10/09/18 09:00 96 205/90 10/09/18 09:00 205/90 10/09/18 08:00 97.6 96 22 205/90 (128) 99 10/09/18 04:12 184/86 10/09/18 04:09 98.0 86 18 184/86 (118) 98 10/09/18 04:00 80 10/09/18 04:00 98.5 85 16 178/88 (118) 100 10/09/18 00:14 73 10/09/18 00:00 98.0 79 16 136/85 (102) 98 10/08/18 22:00 Room Air 10/08/18 21:16 72 10/08/18 21:00 97.8 78 18 197/84 (121) 99 10/08/18 20:45 78 16 98 Room Air 21 10/08/18 19:55 214/87 10/08/18 17:58 185/85 (118) 10/08/18 16:00 98.1 75 17 202/92 (128) 99 10/08/18 14:00 177/85 (115) 10/08/18 13:00 75 185/85 Intake and Output 10/08/18 10/09/18 19:00 07:00 Intake Total 2300 ml 655 ml Balance 2300 ml 655 ml IV Total 1350 ml 655 ml Other 950 ml # Voids 2 # Bowel Movements 1 General Appearance: WD/WN HEENT: normocephalic, atraumatic Respiratory/Chest: chest wall non-tender, normal breath sounds Cardiovascular: normal rate Abdomen: normal bowel sounds, soft, non tender Extremities: no clubbing Skin: no lesions 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: briefcase sewer 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 normal Microbiology Date/Time Source Procedure Growth Status 10/06/18 19:00 Leg Left Gram Stain - Final Resulted 10/06/18 19:00 Wound Culture - Preliminary Staphylococcus Sp Coag Neg Streptococcus Group B Resulted Current Medications Medications (Trade) Dose Ordered Sig/Alfonso Route PRN Reason Start Time Stop Time Status Last Admin Dose Admin Acetaminophen (Tylenol) 650 mg Q6H PRN ORAL Mild Pain/Temp > 100.5 10/06/18 11:15 11/05/18 11:14 Acetaminophen/ Hydrocodone Bitart ([place] 5/325) 1 tab Q6H PRN ORAL Moderate Pain (Pain Scale 4-6) 10/06/18 11:15 10/13/18 11:14 Albuterol/ Ipratropium (Albuterol/ Ipratropium) 3 ml Q4H PRN HHN Shortness of Breath 10/06/18 11:15 10/11/18 11:14 Amlodipine Besylate (Norvasc) 10 mg DAILY ORAL 10/08/18 13:00 11/07/18 12:59 Azithromycin (Zithromax) 250 mg DAILY ORAL 10/07/18 09:00 10/11/18 12:00 10/09/18 09:01 Cefepime HCl 500 mg/Dextrose 55 ml @ 110 mls/hr Q24H IVPB 10/06/18 22:00 10/12/18 21:59 10/08/18 22:47 Clonidine HCl (Catapres Tab) 0.1 mg Q6H PRN ORAL SBP>180 10/09/18 07:53 11/08/18 07:52 10/09/18 09:00 Dextrose (Dextrose 50%) 25 ml Q30M PRN IV Hypoglycemia 10/06/18 11:30 11/04/18 08:59 Dextrose (Dextrose 50%) 50 ml Q30M PRN IV Hypoglycemia 10/06/18 11:30 11/04/18 08:59 Enalapril Maleate (Vasotec) 5 mg DAILY ORAL 10/07/18 09:00 11/04/18 09:59 10/08/18 08:21 Heparin Sodium (Porcine) (Heparin 5000 units/ml) 5,000 units EVERY 8 HOURS SUBQ 10/08/18 06:00 11/07/18 05:59 10/09/18 06:41 Hydralazine HCl (Apresoline) 25 mg Q6H PRN ORAL for SBP >160 10/06/18 11:15 11/05/18 11:14 10/09/18 04:12 Insulin Aspart (NovoLOG) BEFORE MEALS AND HS SUBQ 10/06/18 11:30 11/04/18 11:29 10/09/18 06:40 Ondansetron HCl (Zofran) 4 mg Q4H PRN IVP Nausea & Vomiting 10/06/18 11:15 11/05/18 11:14 Promethazine HCl/ Codeine (Phenergan with Codeine) 5 ml Q4H PRN ORAL For Cough 10/06/18 11:45 11/04/18 11:44 Sitagliptin Phosphate (Januvia) 50 mg ACBREAKFAST ORAL 10/07/18 06:30 11/05/18 06:29 10/09/18 06:39 Sodium Chloride 1,000 ml @ 150 mls/hr Q6H40M IV 10/06/18 11:14 11/05/18 11:13 10/09/18 06:39 Dong Ambriz MD Oct 09, 2018 12:25
--- NOTE | 2018-10-09 14:06 | NUR ---
INSURANCE CLINICALS AND REVIEWS FAXED TO [facility]: [facility] P: [phone] F: [phone] (FAX CLINICALS)
--- NOTE | 2018-10-09 17:11 | Internal Med Progress Note ---
Subjective Date of Service: Oct 09, 2018 Physician Name DulecJony Attending Physician Cirilo Blancas MD Current Medications Medications (Trade) Dose Ordered Sig/Alfonso Route PRN Reason Start Time Stop Time Status Last Admin Dose Admin Acetaminophen (Tylenol) 650 mg Q6H PRN ORAL Mild Pain/Temp > 100.5 10/06/18 11:15 11/05/18 11:14 Acetaminophen/ Hydrocodone Bitart ([place] 5/325) 1 tab Q6H PRN ORAL Moderate Pain (Pain Scale 4-6) 10/06/18 11:15 10/13/18 11:14 Albuterol/ Ipratropium (Albuterol/ Ipratropium) 3 ml Q4H PRN HHN Shortness of Breath 10/06/18 11:15 10/11/18 11:14 Amlodipine Besylate (Norvasc) 10 mg DAILY ORAL 10/08/18 13:00 11/07/18 12:59 Azithromycin (Zithromax) 250 mg DAILY ORAL 10/07/18 09:00 10/11/18 12:00 10/09/18 09:01 Cefepime HCl 500 mg/Dextrose 55 ml @ 110 mls/hr Q24H IVPB 10/06/18 22:00 10/12/18 21:59 10/08/18 22:47 Clonidine HCl (Catapres Tab) 0.1 mg Q6H PRN ORAL SBP>180 10/09/18 07:53 11/08/18 07:52 10/09/18 09:00 Dextrose (Dextrose 50%) 25 ml Q30M PRN IV Hypoglycemia 10/06/18 11:30 11/04/18 08:59 Dextrose (Dextrose 50%) 50 ml Q30M PRN IV Hypoglycemia 10/06/18 11:30 11/04/18 08:59 Enalapril Maleate (Vasotec) 5 mg DAILY ORAL 10/07/18 09:00 11/04/18 09:59 10/08/18 08:21 Heparin Sodium (Porcine) (Heparin 5000 units/ml) 5,000 units EVERY 8 HOURS SUBQ 10/08/18 06:00 11/07/18 05:59 10/09/18 14:02 Hydralazine HCl (Apresoline) 10 mg Q4H PRN IV For High Blood Pressure 10/09/18 12:50 11/08/18 12:49 10/09/18 16:50 Insulin Aspart (NovoLOG) BEFORE MEALS AND HS SUBQ 10/06/18 11:30 11/04/18 11:29 10/09/18 16:51 Ondansetron HCl (Zofran) 4 mg Q4H PRN IVP Nausea & Vomiting 10/06/18 11:15 11/05/18 11:14 Promethazine HCl/ Codeine (Phenergan with Codeine) 5 ml Q4H PRN ORAL For Cough 10/06/18 11:45 11/04/18 11:44 Sitagliptin Phosphate (Januvia) 50 mg ACBREAKFAST ORAL 10/07/18 06:30 11/05/18 06:29 10/09/18 06:39 Sodium Chloride 1,000 ml @ 150 mls/hr Q6H40M IV 10/06/18 11:14 11/05/18 11:13 10/09/18 12:37 Allergies: Coded Allergies: No Known Allergies (Unverified , 02/27/18) ROS Limited/Unobtainable: No Constitutional: Reports: no symptoms HEENT: Reports: no symptoms Cardiovascular: Reports: no symptoms Respiratory: Reports: shortness of breath Gastrointestinal/Abdominal: Reports: no symptoms Genitourinary: Reports: no symptoms 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: Reports: no symptoms Subjective 73 YO F admitted with shortness of breath. Now pneumonia and sepsis. Also left foot ulcer. Cover for Int Yan-Dr Blancas Objective Last Vital Signs Date Time Temp Pulse Resp B/P (MAP) Pulse Ox O2 Delivery O2 Flow Rate FiO2 10/09/18 16:50 208/92 10/09/18 09:30 78 10/09/18 09:00 Room Air 10/09/18 08:00 97.6 22 99 10/09/18 07:00 21 Microbiology Date/Time Source Procedure Growth Status 10/06/18 19:00 Leg Left Gram Stain - Final Resulted 10/06/18 19:00 Wound Culture - Preliminary Staphylococcus Sp Coag Neg Streptococcus Group B Resulted Intake and Output 10/08/18 10/09/18 18:59 06:59 Intake Total 2150 ml 805 ml Balance 2150 ml 805 ml IV Total 1200 ml 805 ml Other 950 ml # Voids 2 # Bowel Movements 1 Objective Objective GENERAL: Awake and responsive, in no acute distress. HEAD AND NECK: Pupils are equal and reactive to light. Extraocular movements intact. Neck was supple. No JVD. LUNGS: Good air entry with no wheezing or rales. HEART: S1, S2. Regular rhythm. No Murmur or gallops. ABDOMEN: Soft, nondistended, and nontender. Morbidly obese. EXTREMITIES: No cyanosis or clubbing. left lower extremity edema with erythematous, redness. Left foot ulceration in 4th metatarsal with minimal discharge. NEUROLOGIC: Cranial nerves II through XII grossly intact. Motor is 5/5 in all extremities. Gait is intact. RECTAL/GENITOURINARY: Refused and deferred. PSYCHIATRIC: Mood and affect is intact. Assessment/Plan Assessment/Plan Assessment/Plan Assessment/Plan ASSESSMENT: 1. Shortness of breath and cough, possible due to the bronchopneumonia. 2. Hypertension. 3. Dyslipidemia. 4. Morbid obesity. 5. Sepsis secondary to the bronchitis or early bronchopneumonia. 6. Chronic kidney disease. 7. History of left lower extremity cellulitis. 8. Anemia. 9. Left foot DM ulcer with acute osteomyelitis PLAN: Transfer to Medical Unit. Follow up with the cultures and laboratory Antibiotics: Cefepime Follow up with Pulmonary consultation with Dr. Ambriz, ID consultation with Dr. Plummer, Podiatry consult with Dr. Elizondo, Nebulizer treatment as needed. Code status: Full Code. DVT prophylaxis: heparin subcutaneous. Dr. Garvey consultation noted Jony Cardona MD Oct 09, 2018 17:11
--- NOTE | 2018-10-09 17:54 | Infectious Diseases Prog Note ---
Assessment/Plan Assessment/Plan Abx: Cefepime 10/05- Azithromycin 10/05- Ceftriaxone x1 10/05 Assessment: Sepsis- 2ry to acute bronchitis vs early PNA -u/a no pyuria; ucx diptheroids -Bcx NTD -CXR: Query mild pulmonary vascular congestion -sp cx normal lior fever; improving Leukocytosis, resolving DM2 HTN hx of leg cellulitis Plan: -Continue empiric Cefepime and Azithromycin #6/7 -f/u cx -Monitor CBC/CMP, temperatures -aspiration precautions -Cdiff if diarrhea Thank you for this consultation. Will continue to follow along with you. Subjective Allergies: Coded Allergies: No Known Allergies (Unverified , 02/27/18) Subjective afebrile > 48hrs leukocytosis resolving Bcx NTD Objective Vital Signs Last 24 Hour Vital Signs Date Time Temp Pulse Resp B/P (MAP) Pulse Ox O2 Delivery O2 Flow Rate FiO2 10/09/18 16:50 208/92 10/09/18 09:30 78 192/74 (113) 10/09/18 09:00 Room Air 10/09/18 09:00 205/90 10/09/18 09:00 96 205/90 10/09/18 09:00 205/90 10/09/18 08:00 97.6 96 22 205/90 (128) 99 10/09/18 07:00 71 14 97 Room Air 21 10/09/18 04:12 184/86 10/09/18 04:09 98.0 86 18 184/86 (118) 98 10/09/18 04:00 80 10/09/18 04:00 98.5 85 16 178/88 (118) 100 10/09/18 00:14 73 10/09/18 00:00 98.0 79 16 136/85 (102) 98 10/08/18 22:00 Room Air 10/08/18 21:16 72 10/08/18 21:00 97.8 78 18 197/84 (121) 99 10/08/18 20:45 78 16 98 Room Air 21 10/08/18 19:55 214/87 10/08/18 17:58 185/85 (118) Height (Feet): 5 Height (Inches): 4.00 Weight (Pounds): 185 Objective General Appearance: NAD HEENT: NCAT, MMM, EOMI Respiratory: chest non-tender, lungs clear, normal breath sounds Cardiovascular: regular rate, rhythm, no murmur Gastrointestinal: normal bowel sounds, non tender, non-distended Microbiology Date/Time Source Procedure Growth Status 10/06/18 19:00 Leg Left Gram Stain - Final Resulted 10/06/18 19:00 Wound Culture - Preliminary Staphylococcus Sp Coag Neg Streptococcus Group B Resulted Current Medications Medications (Trade) Dose Ordered Sig/Alfonso Route PRN Reason Start Time Stop Time Status Last Admin Dose Admin Acetaminophen (Tylenol) 650 mg Q6H PRN ORAL Mild Pain/Temp > 100.5 10/06/18 11:15 11/05/18 11:14 Acetaminophen/ Hydrocodone Bitart ([place] 5/325) 1 tab Q6H PRN ORAL Moderate Pain (Pain Scale 4-6) 10/06/18 11:15 10/13/18 11:14 Albuterol/ Ipratropium (Albuterol/ Ipratropium) 3 ml Q4H PRN HHN Shortness of Breath 10/06/18 11:15 10/11/18 11:14 Amlodipine Besylate (Norvasc) 10 mg DAILY ORAL 10/08/18 13:00 11/07/18 12:59 Azithromycin (Zithromax) 250 mg DAILY ORAL 10/07/18 09:00 10/11/18 12:00 10/09/18 09:01 Cefepime HCl 500 mg/Dextrose 55 ml @ 110 mls/hr Q24H IVPB 10/06/18 22:00 10/12/18 21:59 10/08/18 22:47 Clonidine HCl (Catapres Tab) 0.1 mg Q6H PRN ORAL SBP>180 10/09/18 07:53 11/08/18 07:52 10/09/18 09:00 Dextrose (Dextrose 50%) 25 ml Q30M PRN IV Hypoglycemia 10/06/18 11:30 11/04/18 08:59 Dextrose (Dextrose 50%) 50 ml Q30M PRN IV Hypoglycemia 10/06/18 11:30 11/04/18 08:59 Enalapril Maleate (Vasotec) 5 mg DAILY ORAL 10/07/18 09:00 11/04/18 09:59 10/08/18 08:21 Heparin Sodium (Porcine) (Heparin 5000 units/ml) 5,000 units EVERY 8 HOURS SUBQ 10/08/18 06:00 11/07/18 05:59 10/09/18 14:02 Hydralazine HCl (Apresoline) 10 mg Q4H PRN IV For High Blood Pressure 10/09/18 12:50 11/08/18 12:49 10/09/18 16:50 Insulin Aspart (NovoLOG) BEFORE MEALS AND HS SUBQ 10/06/18 11:30 11/04/18 11:29 10/09/18 16:51 Ondansetron HCl (Zofran) 4 mg Q4H PRN IVP Nausea & Vomiting 10/06/18 11:15 11/05/18 11:14 Promethazine HCl/ Codeine (Phenergan with Codeine) 5 ml Q4H PRN ORAL For Cough 10/06/18 11:45 11/04/18 11:44 Sitagliptin Phosphate (Januvia) 50 mg ACBREAKFAST ORAL 10/07/18 06:30 11/05/18 06:29 10/09/18 06:39 Sodium Chloride 1,000 ml @ 150 mls/hr Q6H40M IV 10/06/18 11:14 11/05/18 11:13 10/09/18 12:37 Doris Plummer M.D. Oct 09, 2018 17:54
[2018-10-09] MEDS ORDERED: Heparin1,000 units/500ml Premix(Conc:2 units/ml) IV PRN (19:30)
[2018-10-09] MEDS ORDERED: Lidocaine 1% Plain 30 ml INJ PRN (19:30)
--- NOTE | 2018-10-09 19:32 | NUR ---
NURSE NOTES: patient received. patient in no acute distress at this time. patient complains of no pain at this time. patient awake alert and oriented x4. patient wound dry and intact on leg and toe. covered with Kerlix. Patient IV intact patent and asymptomatic. bedside commode at bedside. bed in lowest position and locked. call light within reach. bed alarm on. will continue to monitor.
--- NOTE | 2018-10-09 19:35 | NUR ---
HAND-OFF: Report given to Abby/GEORGE, Endorsed plan of care.
--- NOTE | 2018-10-09 19:40 | NUR ---
NURSE NOTES: patient received. patient in no acute distress at this time. patient complains of no pain at this time. patient awake alert and oriented x4. patient IV not intact. IV infiltrated. i DC'd the IV. Another IV was attempted to be put in but patient is hard stick and was unwilling to allow us to try more. Dr. Blancas was called and i asked if it was okay to just wait till tomorrow till she got her PICC line insertion to continue her IV medications. he said it was fine. charge nurse was informed. Patient Cellulitis on Left leg dry and intact. wrapped in Kerlix. bed in lowest position and locked call light within reach. will continue to monitor.
[2018-10-09] MEDS: Cefepime HCl 500 MG in D5W 55 ML IVPB SCH ×2 (21:22→22:00)
[2018-10-09] MEDS: Dyna-Hex 2% Top Sol 2oz TOPIC SCH (21:22)
[2018-10-10] VITALS: BP 157/63
[2018-10-10 04:00] VITALS: BP 193/82
[2018-10-10] MEDS: sitaGLIPtin 50mg tab ORAL SCH (06:31)
[2018-10-10] MEDS: NovoLOG Insulin Flexpen SUBQ SCH ×5 (06:32→21:00)
[2018-10-10] MEDS: Heparin 5000 units/ml inj SUBQ SCH ×3 (06:34→21:12)
--- NOTE | 2018-10-10 07:05 | NUR ---
NURSE NOTES: patient received from GEORGE Mora. Patient is AAO x 3. Patient denies pain at this time. Patient is breathing even and unlabored on room air. 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 Patient has no IV. Scheduled for PICC line today. Dr. Blancas is aware. Patient has wound dressing on left leg that is dry and intact. wrapped in Kerlix. bed in lowest position, side rails x2, locked, and call light within reach. will continue to monitor.
--- NOTE | 2018-10-10 07:07 | NUR ---
HAND-OFF: Report given to hoa mirza.
[2018-10-10 07:23] LABS: EOSINOPHILS % (AUTO) 3.7 % (0.0-3.0); HEMATOCRIT 28.4 % (37.0-47.0); HEMOGLOBIN 8.6 G/DL (12.0-16.0); LYMPHOCYTES % (AUTO) 18.3 % (20.0-45.0); MEAN CORPUSCULAR VOLUME 76 FL (80-99); MONOCYTES % (AUTO) 11.5 % (1.0-10.0); NEUTROPHILS % (AUTO) 65.5 % (45.0-75.0); PLATELET COUNT 360 K/UL (150-450); RED BLOOD COUNT 3.74 M/UL (4.20-5.40); RED CELL DISTRIBUTION WIDTH 13.8 % (11.6-14.8)
[2018-10-10 07:48] LABS: ANION GAP 12 mmol/L (5-15); BLOOD UREA NITROGEN 27 mg/dL (7-18); CALCIUM 9.2 MG/DL (8.5-10.1); CARBON DIOXIDE 20 MMOL/L (21-32); CHLORIDE 113 MMOL/L (98-107); CREATININE 1.2 MG/DL (0.55-1.30); POTASSIUM 4.2 MMOL/L (3.5-5.1); SODIUM 145 MMOL/L (136-145)
[2018-10-10 08:00] VITALS: BP 168/88
[2018-10-10] MEDS: Enalapril 5mg tab ORAL SCH (09:00)
[2018-10-10] MEDS: Azithromycin 250mg tab ORAL SCH (09:05)
--- NOTE | 2018-10-10 11:13 | Pulmonology Progress Note ---
Assessment/Plan Problems: (1) HTN (hypertension) (2) Osteomyelitis (3) Acute bronchitis (4) Cellulitis (5) Sepsis (6) UTI (urinary tract infection) (7) ATN (acute tubular necrosis) (8) Anemia (9) Venous stasis of lower extremity (10) Peripheral neuropathy (11) Diabetes mellitus type II, uncontrolled Assessment/Plan MRI reviewed: Impression: Increased STIR and subtle slightly decreased T1 signal within the fourth proximal phalanx this is concerning for acute osteomyelitis. More questionable increased STIR signal in the distal fourth metatarsal and metatarsal head without definite T1 signal abnormality may be reactive versus representing acute early osteomyelitis BP slightly better sinus at 85 f/u renal improving continue abx check electrolytes Subjective ROS Limited/Unobtainable: No Constitutional: Reports: no symptoms HEENT: Repors: no symptoms Allergies: Coded Allergies: No Known Allergies (Unverified , 02/27/18) Objective Last 24 Hour Vital Signs Date Time Temp Pulse Resp B/P (MAP) Pulse Ox O2 Delivery O2 Flow Rate FiO2 10/10/18 09:04 90 168/88 10/10/18 09:00 Room Air 10/10/18 09:00 168/88 10/10/18 08:00 97.3 90 20 168/88 (114) 100 10/10/18 07:39 79 10/10/18 04:00 97.9 85 18 193/82 (119) 96 10/10/18 00:00 83 10/10/18 00:00 98.0 89 16 157/63 (94) 98 10/09/18 21:23 183/83 10/09/18 21:03 80 18 98 Room Air 21 10/09/18 21:00 Room Air 10/09/18 20:00 98.0 88 18 183/75 (111) 99 10/09/18 20:00 83 10/09/18 17:00 90 183/83 (116) 10/09/18 16:50 208/92 10/09/18 16:00 97.7 80 20 208/92 (130) 98 10/09/18 12:00 97.8 82 20 211/93 (132) 98 Intake and Output 10/09/18 10/10/18 19:00 07:00 Intake Total 600 ml Balance 600 ml Other 600 ml # Voids 3 General Appearance: WD/WN HEENT: normocephalic, atraumatic Respiratory/Chest: chest wall non-tender, lungs clear Breasts: no masses Cardiovascular: normal peripheral pulses, normal rate Abdomen: normal bowel sounds Genitourinary: normal external genitalia 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: 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 Laboratory Tests 10/10/18 06:22: White Blood Count 11.0H, Red Blood Count 3.74L, Hemoglobin 8.6L, Hematocrit 28.4L, Mean Corpuscular Volume 76L, Mean Corpuscular Hemoglobin 23.0L, Mean Corpuscular Hemoglobin Concent 30.3L, Red Cell Distribution Width 13.8, Platelet Count 360, Mean Platelet Volume 7.4, Neutrophils (%) (Auto) 65.5, Lymphocytes (%) (Auto) 18.3L, Monocytes (%) (Auto) 11.5H, Eosinophils (%) (Auto ) 3.7H, Basophils (%) (Auto) 1.0, Sodium Level 145, Potassium Level 4.2, Chloride Level 113H, Carbon Dioxide Level 20L, Anion Gap 12, Blood Urea Nitrogen 27H, Creatinine 1.2, Estimat Glomerular Filtration Rate , Glucose Level 136H, Calcium Level 9.2 Current Medications Medications (Trade) Dose Ordered Sig/Alfonso Route PRN Reason Start Time Stop Time Status Last Admin Dose Admin Acetaminophen (Tylenol) 650 mg Q6H PRN ORAL Mild Pain/Temp > 100.5 10/06/18 11:15 11/05/18 11:14 Acetaminophen/ Hydrocodone Bitart ([place] 5/325) 1 tab Q6H PRN ORAL Moderate Pain (Pain Scale 4-6) 10/06/18 11:15 10/13/18 11:14 Albuterol/ Ipratropium (Albuterol/ Ipratropium) 3 ml Q4H PRN HHN Shortness of Breath 10/06/18 11:15 10/11/18 11:14 Amlodipine Besylate (Norvasc) 10 mg DAILY ORAL 10/08/18 13:00 11/07/18 12:59 10/10/18 09:04 Azithromycin (Zithromax) 250 mg DAILY ORAL 10/07/18 09:00 10/11/18 12:00 10/10/18 09:05 Cefepime HCl 500 mg/Dextrose 55 ml @ 110 mls/hr Q24H IVPB 7/13/19 22:00 10/12/18 21:59 10/08/18 22:47 Chlorhexidine Gluconate ([place]-Hex 2%) 1 applic DAILY@2000 TOPIC 10/09/18 20:00 11/08/18 19:59 10/09/18 21:22 Clonidine HCl (Catapres TTS-1) 1 patch QWEEK TDERMAL 10/09/18 21:00 11/08/18 20:59 10/09/18 21:23 Clonidine HCl (Catapres Tab) 0.1 mg Q6H PRN ORAL SBP>180 10/09/18 07:53 11/08/18 07:52 10/09/18 09:00 Dextrose (Dextrose 50%) 25 ml Q30M PRN IV Hypoglycemia 10/06/18 11:30 11/04/18 08:59 Dextrose (Dextrose 50%) 50 ml Q30M PRN IV Hypoglycemia 10/06/18 11:30 11/04/18 08:59 Enalapril Maleate (Vasotec) 5 mg DAILY ORAL 10/07/18 09:00 11/04/18 09:59 10/08/18 08:21 Heparin Sodium (Porcine) (Heparin 5000 units/ml) 5,000 units EVERY 8 HOURS SUBQ 10/08/18 06:00 11/07/18 05:59 10/10/18 06:34 Heparin Sodium/ Sodium Chloride (Heparin 1000 units/500ml Premix) 1,000 unit ONCE PRN IV picc line placement 10/09/18 19:30 10/11/18 19:29 Hydralazine HCl (Apresoline) 10 mg Q4H PRN IV For High Blood Pressure 10/09/18 12:50 11/08/18 12:49 10/09/18 16:50 Insulin Aspart (NovoLOG) BEFORE MEALS AND HS SUBQ 10/06/18 11:30 11/04/18 11:29 10/10/18 06:32 Lidocaine HCl (Xylocaine 1% 30ml) 30 ml ONCE PRN INJ picc line placement 10/09/18 19:30 10/11/18 19:29 Ondansetron HCl (Zofran) 4 mg Q4H PRN IVP Nausea & Vomiting 10/06/18 11:15 11/05/18 11:14 Promethazine HCl/ Codeine (Phenergan with Codeine) 5 ml Q4H PRN ORAL For Cough 10/06/18 11:45 11/04/18 11:44 Sitagliptin Phosphate (Januvia) 50 mg ACBREAKFAST ORAL 10/07/18 06:30 11/05/18 06:29 10/10/18 06:31 Sodium Chloride 1,000 ml @ 150 mls/hr Q6H40M IV 10/06/18 11:14 11/05/18 11:13 10/09/18 12:37 Dong Ambriz MD Oct 10, 2018 11:13
--- NOTE | 2018-10-10 11:43 | Internal Med Progress Note ---
Subjective Date of Service: Oct 10, 2018 Physician Name DulceJony Attending Physician Cirilo Blancas MD Current Medications Medications (Trade) Dose Ordered Sig/Alfonso Route PRN Reason Start Time Stop Time Status Last Admin Dose Admin Acetaminophen (Tylenol) 650 mg Q6H PRN ORAL Mild Pain/Temp > 100.5 10/06/18 11:15 11/05/18 11:14 Acetaminophen/ Hydrocodone Bitart ([place] 5/325) 1 tab Q6H PRN ORAL Moderate Pain (Pain Scale 4-6) 10/06/18 11:15 10/13/18 11:14 Albuterol/ Ipratropium (Albuterol/ Ipratropium) 3 ml Q4H PRN HHN Shortness of Breath 10/06/18 11:15 10/11/18 11:14 Amlodipine Besylate (Norvasc) 10 mg DAILY ORAL 10/08/18 13:00 11/07/18 12:59 10/10/18 09:04 Azithromycin (Zithromax) 250 mg DAILY ORAL 10/07/18 09:00 10/11/18 12:00 10/10/18 09:05 Cefepime HCl 500 mg/Dextrose 55 ml @ 110 mls/hr Q24H IVPB 10/06/18 22:00 10/12/18 21:59 10/08/18 22:47 Chlorhexidine Gluconate ([place]-Hex 2%) 1 applic DAILY@2000 TOPIC 10/09/18 20:00 11/08/18 19:59 10/09/18 21:22 Clonidine HCl (Catapres TTS-1) 1 patch QWEEK TDERMAL 10/09/18 21:00 11/08/18 20:59 10/09/18 21:23 Clonidine HCl (Catapres Tab) 0.1 mg Q6H PRN ORAL SBP>180 10/09/18 07:53 11/08/18 07:52 10/09/18 09:00 Dextrose (Dextrose 50%) 25 ml Q30M PRN IV Hypoglycemia 10/06/18 11:30 11/04/18 08:59 Dextrose (Dextrose 50%) 50 ml Q30M PRN IV Hypoglycemia 10/06/18 11:30 11/04/18 08:59 Enalapril Maleate (Vasotec) 5 mg DAILY ORAL 10/07/18 09:00 8/11/19 09:59 10/08/18 08:21 Heparin Sodium (Porcine) (Heparin 5000 units/ml) 5,000 units EVERY 8 HOURS SUBQ 10/08/18 06:00 11/07/18 05:59 10/10/18 06:34 Heparin Sodium/ Sodium Chloride (Heparin 1000 units/500ml Premix) 1,000 unit ONCE PRN IV picc line placement 10/09/18 19:30 10/11/18 19:29 Hydralazine HCl (Apresoline) 10 mg Q4H PRN IV For High Blood Pressure 10/09/18 12:50 11/08/18 12:49 10/09/18 16:50 Insulin Aspart (NovoLOG) BEFORE MEALS AND HS SUBQ 10/06/18 11:30 11/04/18 11:29 10/10/18 06:32 Lidocaine HCl (Xylocaine 1% 30ml) 30 ml ONCE PRN INJ picc line placement 10/09/18 19:30 10/11/18 19:29 Ondansetron HCl (Zofran) 4 mg Q4H PRN IVP Nausea & Vomiting 10/06/18 11:15 11/05/18 11:14 Promethazine HCl/ Codeine (Phenergan with Codeine) 5 ml Q4H PRN ORAL For Cough 10/06/18 11:45 11/04/18 11:44 Sitagliptin Phosphate (Januvia) 50 mg ACBREAKFAST ORAL 10/07/18 06:30 11/05/18 06:29 10/10/18 06:31 Sodium Chloride 1,000 ml @ 150 mls/hr Q6H40M IV 10/06/18 11:14 11/05/18 11:13 10/09/18 12:37 Allergies: Coded Allergies: No Known Allergies (Unverified , 02/27/18) ROS Limited/Unobtainable: No Constitutional: Reports: no symptoms HEENT: Reports: no symptoms Cardiovascular: Reports: no symptoms Respiratory: Reports: no symptoms Gastrointestinal/Abdominal: Reports: no symptoms Genitourinary: Reports: no symptoms 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: Reports: no symptoms Subjective 73 YO F admitted with shortness of breath. Now pneumonia and sepsis. Also left foot ulcer. Cover for Int Yan-Dr Blancas Objective Last Vital Signs Date Time Temp Pulse Resp B/P (MAP) Pulse Ox O2 Delivery O2 Flow Rate FiO2 10/10/18 09:04 90 168/88 10/10/18 09:00 Room Air 10/10/18 08:00 97.3 20 100 10/09/18 21:03 21 Laboratory Tests Test 10/10/18 06:22 White Blood Count 11.0 K/UL (4.8-10.8) H Red Blood Count 3.74 M/UL (4.20-5.40) L Hemoglobin 8.6 G/DL (12.0-16.0) L Hematocrit 28.4 % (37.0-47.0) L Mean Corpuscular Volume 76 FL (80-99) L Mean Corpuscular Hemoglobin 23.0 PG (27.0-31.0) L Mean Corpuscular Hemoglobin Concent 30.3 G/DL (32.0-36.0) L Red Cell Distribution Width 13.8 % (11.6-14.8) Platelet Count 360 K/UL (150-450) Mean Platelet Volume 7.4 FL (6.5-10.1) Neutrophils (%) (Auto) 65.5 % (45.0-75.0) Lymphocytes (%) (Auto) 18.3 % (20.0-45.0) L Monocytes (%) (Auto) 11.5 % (1.0-10.0) H Eosinophils (%) (Auto) 3.7 % (0.0-3.0) H Basophils (%) (Auto) 1.0 % (0.0-2.0) Sodium Level 145 MMOL/L (136-145) Potassium Level 4.2 MMOL/L (3.5-5.1) Chloride Level 113 MMOL/L (98-107) H Carbon Dioxide Level 20 MMOL/L (21-32) L Anion Gap 12 mmol/L (5-15) Blood Urea Nitrogen 27 mg/dL (7-18) H Creatinine 1.2 MG/DL (0.55-1.30) Estimat Glomerular Filtration Rate mL/min (>60) Glucose Level 136 MG/DL (74-106) H Calcium Level 9.2 MG/DL (8.5-10.1) Intake and Output 10/09/18 10/10/18 19:00 07:00 Intake Total 600 ml Balance 600 ml Other 600 ml # Voids 3 Objective Objective GENERAL: Awake and responsive, in no acute distress. HEAD AND NECK: Pupils are equal and reactive to light. Extraocular movements intact. Neck was supple. No JVD. LUNGS: Good air entry with no wheezing or rales. HEART: S1, S2. Regular rhythm. No Murmur or gallops. ABDOMEN: Soft, nondistended, and nontender. Morbidly obese. EXTREMITIES: No cyanosis or clubbing. left lower extremity edema with erythematous, redness. Left foot ulceration in 4th metatarsal with minimal discharge. NEUROLOGIC: Cranial nerves II through XII grossly intact. Motor is 5/5 in all extremities. Gait is intact. RECTAL/GENITOURINARY: Refused and deferred. PSYCHIATRIC: Mood and affect is intact. Assessment/Plan Assessment/Plan Assessment/Plan Assessment/Plan ASSESSMENT: 1. Shortness of breath and cough, possible due to the bronchopneumonia. 2. Hypertension. 3. Dyslipidemia. 4. Morbid obesity. 5. Sepsis secondary to the bronchitis or early bronchopneumonia. 6. Chronic kidney disease. 7. History of left lower extremity cellulitis. 8. Anemia. 9. Left foot DM ulcer with acute osteomyelitis PLAN: Antibiotics: Cefepime and azithromycin per ID Follow up with Pulmonary consultation with Dr. Ambriz ID consultation with Dr. Plummer Podiatry consult with Dr. Elizondo Nebulizer treatment as needed. Code status: Full Code. DVT prophylaxis: heparin subcutaneous. Dr. Garvey consultation noted Jony Cardona MD Oct 10, 2018 11:43
[2018-10-10 12:00] VITALS: BP 172/80
--- NOTE | 2018-10-10 12:40 | Infectious Diseases Prog Note ---
Assessment/Plan Assessment/Plan Abx: Cefepime 10/05- Azithromycin 10/05- Ceftriaxone x1 10/05 Assessment: Sepsis- 2ry to acute bronchitis vs early PNA -u/a no pyuria; ucx diptheroids -Bcx NTD -CXR: Query mild pulmonary vascular congestion -sp cx normal lior fever; SP Leukocytosis, resolving DM2 HTN hx of leg cellulitis Plan: -Continue empiric Cefepime and Azithromycin 09/30 -f/u cx -Monitor CBC/CMP, temperatures -aspiration precautions -Cdiff if diarrhea Thank you for this consultation. Will continue to follow along with you. Subjective Allergies: Coded Allergies: No Known Allergies (Unverified , 02/27/18) Subjective afebrile leukocytosis resolving Bcx NTD Objective Vital Signs Last 24 Hour Vital Signs Date Time Temp Pulse Resp B/P (MAP) Pulse Ox O2 Delivery O2 Flow Rate FiO2 10/10/18 09:04 90 168/88 10/10/18 09:00 Room Air 10/10/18 09:00 168/88 10/10/18 08:00 97.3 90 20 168/88 (114) 100 10/10/18 07:39 79 10/10/18 04:00 97.9 85 18 193/82 (119) 96 10/10/18 00:00 83 10/10/18 00:00 98.0 89 16 157/63 (94) 98 10/09/18 21:23 183/83 10/09/18 21:03 80 18 98 Room Air 21 10/09/18 21:00 Room Air 10/09/18 20:00 98.0 88 18 183/75 (111) 99 10/09/18 20:00 83 10/09/18 17:00 90 183/83 (116) 10/09/18 16:50 208/92 10/09/18 16:00 97.7 80 20 208/92 (130) 98 Height (Feet): 5 Height (Inches): 4.00 Weight (Pounds): 185 Objective General Appearance: NAD HEENT: NCAT, MMM, EOMI Respiratory: chest non-tender, lungs clear, normal breath sounds Cardiovascular: regular rate, rhythm, no murmur Gastrointestinal: normal bowel sounds, non tender, non-distended Laboratory Tests Test 10/10/18 06:22 White Blood Count 11.0 K/UL (4.8-10.8) H Red Blood Count 3.74 M/UL (4.20-5.40) L Hemoglobin 8.6 G/DL (12.0-16.0) L Hematocrit 28.4 % (37.0-47.0) L Mean Corpuscular Volume 76 FL (80-99) L Mean Corpuscular Hemoglobin 23.0 PG (27.0-31.0) L Mean Corpuscular Hemoglobin Concent 30.3 G/DL (32.0-36.0) L Red Cell Distribution Width 13.8 % (11.6-14.8) Platelet Count 360 K/UL (150-450) Mean Platelet Volume 7.4 FL (6.5-10.1) Neutrophils (%) (Auto) 65.5 % (45.0-75.0) Lymphocytes (%) (Auto) 18.3 % (20.0-45.0) L Monocytes (%) (Auto) 11.5 % (1.0-10.0) H Eosinophils (%) (Auto) 3.7 % (0.0-3.0) H Basophils (%) (Auto) 1.0 % (0.0-2.0) Sodium Level 145 MMOL/L (136-145) Potassium Level 4.2 MMOL/L (3.5-5.1) Chloride Level 113 MMOL/L (98-107) H Carbon Dioxide Level 20 MMOL/L (21-32) L Anion Gap 12 mmol/L (5-15) Blood Urea Nitrogen 27 mg/dL (7-18) H Creatinine 1.2 MG/DL (0.55-1.30) Estimat Glomerular Filtration Rate mL/min (>60) Glucose Level 136 MG/DL (74-106) H Calcium Level 9.2 MG/DL (8.5-10.1) Current Medications Medications (Trade) Dose Ordered Sig/Alfonso Route PRN Reason Start Time Stop Time Status Last Admin Dose Admin Acetaminophen (Tylenol) 650 mg Q6H PRN ORAL Mild Pain/Temp > 100.5 10/06/18 11:15 11/05/18 11:14 Acetaminophen/ Hydrocodone Bitart ([place] 5/325) 1 tab Q6H PRN ORAL Moderate Pain (Pain Scale 4-6) 10/06/18 11:15 10/13/18 11:14 Albuterol/ Ipratropium (Albuterol/ Ipratropium) 3 ml Q4H PRN HHN Shortness of Breath 10/06/18 11:15 10/11/18 11:14 Amlodipine Besylate (Norvasc) 10 mg DAILY ORAL 10/08/18 13:00 11/07/18 12:59 10/10/18 09:04 Azithromycin (Zithromax) 250 mg DAILY ORAL 10/07/18 09:00 10/11/18 12:00 10/10/18 09:05 Cefepime HCl 500 mg/Dextrose 55 ml @ 110 mls/hr Q24H IVPB 10/06/18 22:00 10/12/18 21:59 10/08/18 22:47 Chlorhexidine Gluconate ([place]-Hex 2%) 1 applic DAILY@2000 TOPIC 10/09/18 20:00 11/08/18 19:59 10/09/18 21:22 Clonidine HCl (Catapres TTS-1) 1 patch QWEEK TDERMAL 10/09/18 21:00 11/08/18 20:59 10/09/18 21:23 Clonidine HCl (Catapres Tab) 0.1 mg Q6H PRN ORAL SBP>180 10/09/18 07:53 11/08/18 07:52 10/09/18 09:00 Dextrose (Dextrose 50%) 25 ml Q30M PRN IV Hypoglycemia 10/06/18 11:30 11/04/18 08:59 Dextrose (Dextrose 50%) 50 ml Q30M PRN IV Hypoglycemia 10/06/18 11:30 11/04/18 08:59 Enalapril Maleate (Vasotec) 5 mg DAILY ORAL 10/07/18 09:00 11/04/18 09:59 10/08/18 08:21 Heparin Sodium (Porcine) (Heparin 5000 units/ml) 5,000 units EVERY 8 HOURS SUBQ 10/08/18 06:00 11/07/18 05:59 10/10/18 06:34 Heparin Sodium/ Sodium Chloride (Heparin 1000 units/500ml Premix) 1,000 unit ONCE PRN IV picc line placement 10/09/18 19:30 10/11/18 19:29 Hydralazine HCl (Apresoline) 10 mg Q4H PRN IV For High Blood Pressure 10/09/18 12:50 11/08/18 12:49 10/09/18 16:50 Insulin Aspart (NovoLOG) BEFORE MEALS AND HS SUBQ 10/06/18 11:30 11/04/18 11:29 10/10/18 06:32 Lidocaine HCl (Xylocaine 1% 30ml) 30 ml ONCE PRN INJ picc line placement 10/09/18 19:30 10/11/18 19:29 Ondansetron HCl (Zofran) 4 mg Q4H PRN IVP Nausea & Vomiting 10/06/18 11:15 11/05/18 11:14 Promethazine HCl/ Codeine (Phenergan with Codeine) 5 ml Q4H PRN ORAL For Cough 10/06/18 11:45 11/04/18 11:44 Sitagliptin Phosphate (Januvia) 50 mg ACBREAKFAST ORAL 10/07/18 06:30 11/05/18 06:29 10/10/18 06:31 Sodium Chloride 1,000 ml @ 150 mls/hr Q6H40M IV 10/06/18 11:14 11/05/18 11:13 10/09/18 12:37 Doris Plummer M.D. Oct 10, 2018 12:40
--- NOTE | 2018-10-10 14:03 | NUR ---
INSURANCE CLINICALS AND REVIEWS FAXED TO [facility]: [facility] P: [phone] F: [phone] (FAX CLINICALS)
--- NOTE | 2018-10-10 14:07 | NUR ---
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 ACUTE BRONCHITIS VS: BP 193/82, P 91, T 97.3, RR 18, SpO2 98 WBC 11.0, RBC 33.74, H&H 8.6/28.4, BUN 27, GLUCOSE 136 MRI: ACUTE OSTEOMYELITIS IS: ZITHROMAX 250mg NORVASC 10mg HEPARIN SUBQ JANUVIA 50mg PLAN: CONTINUE CEFEPIME & AZITHROMYCIN KEEP BOTH LEGS ELEVATED TELE STATUS
--- NOTE | 2018-10-10 14:38 | Diagnostic Imaging Report ---
Indication: Dyspnea Technique: Continuous helical transaxial imaging of the chest was obtained from the thoracic inlet to the upper abdomen. No intravenous contrast was administered. Coronal 2-D reformats were also obtained. Total Dose length Product (DLP): 919.[address] Dose Index Volume (CTDIvol): 26.59 mGy Comparison: none Findings: Trace bilateral pleural effusions are present. Associated mild posterior basal atelectasis noted. There is some breathing motion. No consolidation/airspace disease or interstitial disease identified. No adenopathy seen. Few small nodes are seen in the axilla bilaterally nonspecific. Aorta is mildly calcified. Heart size is normal. Upper abdomen is unremarkable. There is some subcutaneous reticulation and edema especially in the visualized upper abdomen. IMPRESSION: Trace bilateral pleural effusions Atherosclerotic vascular disease Small nodes in the axilla bilaterally nonspecific. Generalized subcutaneous edema nonspecific in nature The CT scanner at [facility] is accredited by the [employer] and the scans are performed using dose optimization techniques as appropriate to a performed exam including Automatic Exposure control.
--- NOTE | 2018-10-10 15:00 | NUR ---
NURSE NOTES: @14:00 - Patient went for Picc. @15:00 Patient arrived on unit. Has right upper arm picc line.
--- NOTE | 2018-10-10 15:30 | Diagnostic Imaging Report ---
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 The right upper extremity was prepped with alcohol. All elements of maximal sterile barrier technique were followed including usage of a cap, mask, sterile gown, sterile gloves, hand hygiene and a large sterile sheet. Sonographic evaluation of the upper extremity was performed demonstrating a patent and compressible basilic vein. Access was obtained under real-time ultrasound guidance (with utilization of sterile gel and sterile probe cover) and digital image was saved and archived. An .018 wire was introduced. Needle exchanged for a 5 Nauruan peel-away sheath. Measurements were obtained. A 5 Naur[place] dual-lumen Power PICC line catheter was cut to 40 cm and introduced over the wire. Peel-away sheath and wire were removed.Catheter was secured to the skin using 2-0 Prolene suture. Both ports aspirate and flush easily. A single fluoroscopic image shows the distal tip in the superior vena cava. Fluoroscopic time 17 seconds. Impression: Successful placement of an upper extremity PICC line catheter
--- NOTE | 2018-10-10 15:38 | NUR ---
NURSE NOTES: Called Radiologist . Need order for ok to use PICC.
[2018-10-10 16:00] VITALS: BP 172/80
--- NOTE | 2018-10-10 17:51 | NUR ---
NURSE NOTES: 16:30- Patient initially refused insulin. After explanation from charge and primary RN, patient changed her mind and would take the NovoLog medication.
--- NOTE | 2018-10-10 18:37 | Diagnostic Imaging Report ---
APPROVED REPORT CPT Code: 18369 Vascular Symptoms CVA/TIA: Doppler Spectral Velocity Analysis RightLeft RIGHT SIDE: CCA - Imaging reveals no significant plaque in the common carotid artery. ICA arteries. The Doppler signal indicates the degree of stenosis is mild (30%) in the internal carotid, and (30%) in the external carotid arteries. LEFT SIDE: CCA - Imaging reveals no significant plaque in the common carotid artery. ICA arteries. The Doppler signal indicates the degree of stenosis is mild (30%) in the internal carotid, and (30%) in the external carotid arteries. SUBCLAVIAN/VERTEBRAL - The subclavian and vertebral arteries are patent, without evidence of stenosis or steal.
--- NOTE | 2018-10-10 18:38 | Diagnostic Imaging Report ---
APPROVED REPORT CPT Code: 51379 Comments BILATERAL LEGS PAIN. BILATERAL: Common femoral artery waveform analysis is within normal limits at rest. Color flow duplex sonography reveals patency of the superficial femoral, popliteal, and tibial arteries, there is no evidence of stenosis or occlusion within these segments. Doppler tibial artery waveform analysis is within normal limits, bilaterally. There is no evidence of significant arterial occlusive disease, bilaterally.
--- NOTE | 2018-10-10 18:43 | Diagnostic Imaging Report ---
APPROVED REPORT CPT Code: 23986 Present Symptoms Comments: Screening BILATERAL: Imaging reveals a patent deep venous system bilaterally. There is no evidence of thrombus within the femoral, popliteal or tibial segments. The greater saphenous veins are also within normal limits. Doppler indicates normal spontaneous flow within these segments.
--- NOTE | 2018-10-10 18:45 | NUR ---
NURSE NOTES: Dr. Ambriz is aware of patient noncompliance with PRN blood pressure medication. 4pm blood pressure was 178/80. patient refused PRN. Patient states she will take blood pressure medication if it goes above 180 or if she feels symptoms. No new orders at this time.
[2018-10-10 20:00] VITALS: BP 160/90
--- NOTE | 2018-10-10 20:12 | NUR ---
HAND-OFF: Report given to GEORGE Phillip.
--- NOTE | 2018-10-10 20:24 | NUR ---
NURSE NOTES: Received pt from GEORGE Stewart. Pt awake, alert, and sitting on the edge of bed. RN endorsed that pt is refusing BP meds if SBP less than 180. She is also refusing insulin for BG less than 150 and requesting manual BP readings only. Bed in lowest position. Call light within reach. Will continue to monitor.
[2018-10-10] MEDS: Dyna-Hex 2% Top Sol 2oz TOPIC SCH (21:10)
[2018-10-10] MEDS: Cefepime HCl 500 MG in D5W 55 ML IVPB SCH (21:11)
[2018-10-11] VITALS (7 sets, daily range): BP systolic 150–178; BP diastolic 67–78
[2018-10-11] MEDS: sitaGLIPtin 50mg tab ORAL SCH (05:22)
[2018-10-11] MEDS: NovoLOG Insulin Flexpen SUBQ SCH ×4 (05:22→20:52)
[2018-10-11] MEDS: Heparin 5000 units/ml inj SUBQ SCH ×3 (05:22→20:49)
[2018-10-11 05:58] LABS: HEMATOCRIT 26.1 % (37.0-47.0); HEMOGLOBIN 7.9 G/DL (12.0-16.0); MEAN CORPUSCULAR VOLUME 75 FL (80-99); PLATELET COUNT 342 K/UL (150-450); RED BLOOD COUNT 3.49 M/UL (4.20-5.40); RED CELL DISTRIBUTION WIDTH 13.8 % (11.6-14.8); WHITE BLOOD COUNT 10.9 K/UL (4.8-10.8)
[2018-10-11 06:05] LABS: ANION GAP 9 mmol/L (5-15); BLOOD UREA NITROGEN 24 mg/dL (7-18); CALCIUM 9.1 MG/DL (8.5-10.1); CARBON DIOXIDE 24 MMOL/L (21-32); CHLORIDE 112 MMOL/L (98-107); CREATININE 1.2 MG/DL (0.55-1.30); POTASSIUM 4.4 MMOL/L (3.5-5.1); SODIUM 145 MMOL/L (136-145)
--- NOTE | 2018-10-11 07:45 | NUR ---
NURSE NOTES: Report received from GEORGE Phillip. Patient awake, sitting at side of bed. AOx4. In RA. Denies any pain or SOB. PICC on R upper arm inserted 10/10. site intact. Bed on lowest position, side rails upx2, brakes engaged. Call light within easy reach.
[2018-10-11] MEDS: Azithromycin 250mg tab ORAL SCH (08:57)
[2018-10-11] MEDS: Enalapril 5mg tab ORAL SCH ×2 (08:58→09:00)
--- NOTE | 2018-10-11 10:12 | NUR ---
NURSE NOTES: Pt. refuses to take medication. Teaching done.
--- NOTE | 2018-10-11 10:18 | NUR ---
CASE MANAGEMENT:REVIEW 10/11/18 SI: SEPSIS. BRONCHITIS CONCERNING FOR ACUTE OSTEOMYELITIS (FOOT) 98.4 87 18 169/67 98% ON RA WBC+10.9 H/H-7.9/26.1 IS: IV CEFEPIME Q24 AZITHROMYCIN PO QD CLONIDINE PATCH QWEEK NORVASC PO QD HEPARIN SQ Q8HRS VASOTEC PO QD : TELEMETRY STATUS DCP: FROM HOME
--- NOTE | 2018-10-11 10:26 | NUR ---
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 ACUTE BRONCHITIS VS: BP 169/67, P 74, T 98.4, RR 18, SpO2 96 WBC 10.9, RBC 3.49, H&H 7.9/26.1, BUN 24 IS:ZITHROMAX 250mg NORVASC 10mg JANUVIA 50mg CEFEPIME 55ml IVPB TELE STATUS
--- NOTE | 2018-10-11 14:11 | Infectious Diseases Prog Note ---
Assessment/Plan Assessment/Plan Assessment: Sepsis- 2ry to acute bronchitis vs early PNA -10/10 CT chest: Trace bilateral pleural effusions. Atherosclerotic vascular disease. Small nodes in the axilla bilaterally nonspecific. Generalized subcutaneous edema nonspecific in nature -u/a no pyuria; ucx diphtheroids -Bcx NTD -CXR: Query mild pulmonary vascular congestion -sp cx normal lior fever; SP Leukocytosis, resolving DM2 HTN hx of leg cellulitis Plan: -D/c empiric Cefepime #8/7 -10/10 SP Azithromycin #7 -10/05 SP Azithromycin x1 -f/u cx -Monitor CBC/CMP, temperatures -aspiration precautions -Cdiff if diarrhea Thank you for this consultation. Will continue to follow along with you. Subjective Allergies: Coded Allergies: No Known Allergies (Unverified , 02/27/18) Subjective afebrile leukocytosis resolving Bcx NTD Objective Vital Signs Last 24 Hour Vital Signs Date Time Temp Pulse Resp B/P (MAP) Pulse Ox O2 Delivery O2 Flow Rate FiO2 10/11/18 12:00 93 10/11/18 09:00 Room Air 10/11/18 09:00 169/67 10/11/18 08:57 83 169/67 10/11/18 08:04 83 16 98 Room Air 21 10/11/18 08:00 83 10/11/18 08:00 98.4 87 18 169/67 (101) 96 10/11/18 04:00 70 10/11/18 04:00 98.4 74 18 150/78 (102) 96 10/11/18 00:00 91 10/11/18 00:00 98.1 78 18 150/70 (96) 98 10/10/18 21:00 Room Air 10/10/18 20:09 71 18 98 Room Air 21 10/10/18 20:00 98.2 79 18 160/90 (113) 99 10/10/18 20:00 77 10/10/18 16:00 98.2 93 20 172/80 (110) 98 10/10/18 15:11 101 Height (Feet): 5 Height (Inches): 4.00 Weight (Pounds): 185 Objective General Appearance: NAD HEENT: NCAT, MMM, EOMI Respiratory: chest non-tender, lungs clear, normal breath sounds Cardiovascular: regular rate, rhythm, no murmur Gastrointestinal: normal bowel sounds, non tender, non-distended Laboratory Tests Test 10/11/18 05:40 White Blood Count 10.9 K/UL (4.8-10.8) H Red Blood Count 3.49 M/UL (4.20-5.40) L Hemoglobin 7.9 G/DL (12.0-16.0) L Hematocrit 26.1 % (37.0-47.0) L Mean Corpuscular Volume 75 FL (80-99) L Mean Corpuscular Hemoglobin 22.8 PG (27.0-31.0) L Mean Corpuscular Hemoglobin Concent 30.5 G/DL (32.0-36.0) L Red Cell Distribution Width 13.8 % (11.6-14.8) Platelet Count 342 K/UL (150-450) Mean Platelet Volume 7.1 FL (6.5-10.1) Neutrophils (%) (Auto) % (45.0-75.0) Lymphocytes (%) (Auto) % (20.0-45.0) Monocytes (%) (Auto) % (1.0-10.0) Eosinophils (%) (Auto) % (0.0-3.0) Basophils (%) (Auto) % (0.0-2.0) Sodium Level 145 MMOL/L (136-145) Potassium Level 4.4 MMOL/L (3.5-5.1) Chloride Level 112 MMOL/L (98-107) H Carbon Dioxide Level 24 MMOL/L (21-32) Anion Gap 9 mmol/L (5-15) Blood Urea Nitrogen 24 mg/dL (7-18) H Creatinine 1.2 MG/DL (0.55-1.30) Estimat Glomerular Filtration Rate mL/min (>60) Glucose Level 127 MG/DL (74-106) H Calcium Level 9.1 MG/DL (8.5-10.1) Current Medications Medications (Trade) Dose Ordered Sig/Alfonso Route PRN Reason Start Time Stop Time Status Last Admin Dose Admin Acetaminophen (Tylenol) 650 mg Q6H PRN ORAL Mild Pain/Temp > 100.5 10/06/18 11:15 11/05/18 11:14 Acetaminophen/ Hydrocodone Bitart ([place] 5/325) 1 tab Q6H PRN ORAL Moderate Pain (Pain Scale 4-6) 10/06/18 11:15 10/13/18 11:14 Amlodipine Besylate (Norvasc) 10 mg DAILY ORAL 10/08/18 13:00 11/07/18 12:59 10/11/18 08:57 Cefepime HCl 500 mg/Dextrose 55 ml @ 110 mls/hr Q24H IVPB 10/06/18 22:00 10/12/18 21:59 10/10/18 21:11 Chlorhexidine Gluconate (Olrena-Hex 2%) 1 applic DAILY@2000 TOPIC 10/09/18 20:00 11/08/18 19:59 10/10/18 21:10 Clonidine HCl (Catapres TTS-1) 1 patch QWEEK TDERMAL 10/09/18 21:00 11/08/18 20:59 10/09/18 21:23 Clonidine HCl (Catapres Tab) 0.1 mg Q6H PRN ORAL SBP>180 10/09/18 07:53 11/08/18 07:52 10/09/18 09:00 Dextrose (Dextrose 50%) 25 ml Q30M PRN IV Hypoglycemia 10/06/18 11:30 11/04/18 08:59 Dextrose (Dextrose 50%) 50 ml Q30M PRN IV Hypoglycemia 10/06/18 11:30 11/04/18 08:59 Enalapril Maleate (Vasotec) 5 mg DAILY ORAL 10/07/18 09:00 11/04/18 09:59 10/08/18 08:21 Heparin Sodium (Porcine) (Heparin 5000 units/ml) 5,000 units EVERY 8 HOURS SUBQ 10/08/18 06:00 11/07/18 05:59 10/10/18 06:34 Heparin Sodium/ Sodium Chloride (Heparin 1000 units/500ml Premix) 1,000 unit ONCE PRN IV picc line placement 10/09/18 19:30 10/11/18 19:29 Hydralazine HCl (Apresoline) 10 mg Q4H PRN IV For High Blood Pressure 10/09/18 12:50 11/08/18 12:49 10/09/18 16:50 Insulin Aspart (NovoLOG) BEFORE MEALS AND HS SUBQ 10/06/18 11:30 11/04/18 11:29 10/11/18 11:54 Lidocaine HCl (Xylocaine 1% 30ml) 30 ml ONCE PRN INJ picc line placement 10/09/18 19:30 10/11/18 19:29 Ondansetron HCl (Zofran) 4 mg Q4H PRN IVP Nausea & Vomiting 10/06/18 11:15 11/05/18 11:14 Promethazine HCl/ Codeine (Phenergan with Codeine) 5 ml Q4H PRN ORAL For Cough 10/06/18 11:45 11/04/18 11:44 Sitagliptin Phosphate (Januvia) 50 mg ACBREAKFAST ORAL 10/07/18 06:30 11/05/18 06:29 10/11/18 05:22 Sodium Chloride 1,000 ml @ 150 mls/hr Q6H40M IV 10/06/18 11:14 11/05/18 11:13 10/11/18 11:54 Doris Plummer M.D. Oct 11, 2018 14:11
--- NOTE | 2018-10-11 15:10 | NUR ---
NURSE NOTES: Picc line dressing change done. Pt. tolerated well.
--- NOTE | 2018-10-11 15:55 | NUR ---
INSURANCE CLINICALS AND REVIEWS FAXED TO [facility]: [facility] P: [phone] F: [phone] (FAX CLINICALS)
[2018-10-11] MEDS ORDERED: Vancomycin 1.25gm Premix IVPB ONE (16:00)
--- NOTE | 2018-10-11 16:25 | Pulmonology Progress Note ---
Assessment/Plan Problems: (1) Sepsis (2) Acute bronchitis (3) Cellulitis (4) UTI (urinary tract infection) (5) ATN (acute tubular necrosis) (6) Anemia (7) Venous stasis of lower extremity (8) Peripheral neuropathy (9) Diabetes mellitus type II, uncontrolled (10) HTN (hypertension) Assessment/Plan no new complains BP slightly better sinus at 85 f/u renal improving continue abx check electrolytes Subjective ROS Limited/Unobtainable: No Constitutional: Reports: no symptoms HEENT: Repors: no symptoms Respiratory: Reports: no symptoms Cardiovascular: Reports: no symptoms Allergies: Coded Allergies: No Known Allergies (Unverified , 02/27/18) Objective Last 24 Hour Vital Signs Date Time Temp Pulse Resp B/P (MAP) Pulse Ox O2 Delivery O2 Flow Rate FiO2 10/11/18 15:29 81 159/71 (100) 10/11/18 14:31 98.4 78 18 178/70 (106) 96 10/11/18 14:22 178/70 10/11/18 12:00 98.4 87 18 178/70 (106) 97 10/11/18 12:00 93 10/11/18 09:00 Room Air 10/11/18 09:00 169/67 10/11/18 08:57 83 169/67 10/11/18 08:04 83 16 98 Room Air 21 10/11/18 08:00 83 10/11/18 08:00 98.4 87 18 169/67 (101) 96 10/11/18 04:00 70 10/11/18 04:00 98.4 74 18 150/78 (102) 96 10/11/18 00:00 91 10/11/18 00:00 98.1 78 18 150/70 (96) 98 10/10/18 21:00 Room Air 10/10/18 20:09 71 18 98 Room Air 21 10/10/18 20:00 98.2 79 18 160/90 (113) 99 10/10/18 20:00 77 Intake and Output 10/10/18 10/11/18 19:00 07:00 Intake Total 3960 ml Output Total 250 ml Balance 3710 ml Intake Oral 360 ml IV Total 3000 ml Other 600 ml Output Urine Total 250 ml # Voids 6 4 # Bowel Movements 1 General Appearance: WD/WN HEENT: normocephalic, atraumatic Respiratory/Chest: chest wall non-tender, lungs clear, normal breath sounds Breasts: no masses Cardiovascular: normal peripheral pulses, normal rate Abdomen: normal bowel sounds, soft, non tender Genitourinary: normal external genitalia Extremities: no cyanosis 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: him manager 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 normal Lymphatic: no neck adenopathy Laboratory Tests 10/11/18 05:40: White Blood Count 10.9H, Red Blood Count 3.49L, Hemoglobin 7.9L, Hematocrit 26.1L, Mean Corpuscular Volume 75L, Mean Corpuscular Hemoglobin 22.8L, Mean Corpuscular Hemoglobin Concent 30.5L, Red Cell Distribution Width 13.8, Platelet Count 342, Mean Platelet Volume 7.1, Neutrophils (%) (Auto) , Lymphocytes (%) (Auto) , Monocytes (%) (Auto) , Eosinophils (%) (Auto) , Basophils (%) (Auto) , Sodium Level 145, Potassium Level 4.4, Chloride Level 112H, Carbon Dioxide Level 24, Anion Gap 9, Blood Urea Nitrogen 24H, Creatinine 1.2, Estimat Glomerular Filtration Rate , Glucose Level 127H, Calcium Level 9.1 Current Medications Medications (Trade) Dose Ordered Sig/Alfonso Route PRN Reason Start Time Stop Time Status Last Admin Dose Admin Acetaminophen (Tylenol) 650 mg Q6H PRN ORAL Mild Pain/Temp > 100.5 10/06/18 11:15 11/05/18 11:14 Acetaminophen/ Hydrocodone Bitart ([place] 5/325) 1 tab Q6H PRN ORAL Moderate Pain (Pain Scale 4-6) 10/06/18 11:15 10/13/18 11:14 Amlodipine Besylate (Norvasc) 10 mg DAILY ORAL 10/08/18 13:00 11/07/18 12:59 10/11/18 08:57 Ceftriaxone Sodium 2 gm/ Dextrose 55 ml @ 110 mls/hr Q24H IVPB 10/11/18 21:00 10/18/18 20:59 Chlorhexidine Gluconate ([place]ore[place]-Hex 2%) 1 applic DAILY@2000 TOPIC 10/09/18 20:00 11/08/18 19:59 10/10/18 21:10 Clonidine HCl (Catapres TTS-1) 1 patch QWEEK TDERMAL 10/09/18 21:00 11/08/18 20:59 10/09/18 21:23 Clonidine HCl (Catapres Tab) 0.1 mg Q6H PRN ORAL SBP>180 10/09/18 07:53 11/08/18 07:52 10/09/18 09:00 Dextrose (Dextrose 50%) 25 ml Q30M PRN IV Hypoglycemia 10/06/18 11:30 11/04/18 08:59 Dextrose (Dextrose 50%) 50 ml Q30M PRN IV Hypoglycemia 10/06/18 11:30 11/04/18 08:59 Enalapril Maleate (Vasotec) 5 mg DAILY ORAL 10/07/18 09:00 11/04/18 09:59 10/08/18 08:21 Heparin Sodium (Porcine) (Heparin 5000 units/ml) 5,000 units EVERY 8 HOURS SUBQ 10/08/18 06:00 11/07/18 05:59 10/10/18 06:34 Heparin Sodium/ Sodium Chloride (Heparin 1000 units/500ml Premix) 1,000 unit ONCE PRN IV picc line placement 10/09/18 19:30 10/11/18 19:29 Hydralazine HCl (Apresoline) 10 mg Q4H PRN IV For High Blood Pressure 10/09/18 12:50 11/08/18 12:49 10/11/18 14:22 Insulin Aspart (NovoLOG) BEFORE MEALS AND HS SUBQ 10/06/18 11:30 11/04/18 11:29 10/11/18 11:54 Lidocaine HCl (Xylocaine 1% 30ml) 30 ml ONCE PRN INJ picc line placement 10/09/18 19:30 10/11/18 19:29 Ondansetron HCl (Zofran) 4 mg Q4H PRN IVP Nausea & Vomiting 10/06/18 11:15 11/05/18 11:14 Promethazine HCl/ Codeine (Phenergan with Codeine) 5 ml Q4H PRN ORAL For Cough 10/06/18 11:45 11/04/18 11:44 Sitagliptin Phosphate (Januvia) 50 mg ACBREAKFAST ORAL 10/07/18 06:30 11/05/18 06:29 10/11/18 05:22 Sodium Chloride 1,000 ml @ 150 mls/hr Q6H40M IV 10/06/18 11:14 11/05/18 11:13 10/11/18 11:54 Vancomycin HCl (Vanco rx to dose) 1 ea DAILY PRN MISC Per rx protocol 10/11/18 14:45 11/10/18 14:44 Vancomycin HCl 750 mg/Sodium Chloride 275 ml @ 183.333 mls/hr Q24H IVPB 10/12/18 16:00 10/17/18 15:59 Vancomycin HCl/ Dextrose 275 ml @ 183.333 mls/hr ONCE ONCE IVPB 10/11/18 16:00 10/11/18 17:29 Dong Ambriz MD Oct 11, 2018 16:25
--- NOTE | 2018-10-11 16:44 | Internal Med Progress Note ---
Subjective Date of Service: Oct 11, 2018 Physician Name Jony Cardona Attending Physician Cirilo Blancas MD Current Medications Medications (Trade) Dose Ordered Sig/Alfonso Route PRN Reason Start Time Stop Time Status Last Admin Dose Admin Acetaminophen (Tylenol) 650 mg Q6H PRN ORAL Mild Pain/Temp > 100.5 10/06/18 11:15 11/05/18 11:14 Acetaminophen/ Hydrocodone Bitart ([place] 5/325) 1 tab Q6H PRN ORAL Moderate Pain (Pain Scale 4-6) 10/06/18 11:15 10/13/18 11:14 Amlodipine Besylate (Norvasc) 10 mg DAILY ORAL 10/08/18 13:00 11/07/18 12:59 10/11/18 08:57 Ceftriaxone Sodium 2 gm/ Dextrose 55 ml @ 110 mls/hr Q24H IVPB 10/11/18 21:00 10/18/18 20:59 Chlorhexidine Gluconate (Lorena-Hex 2%) 1 applic DAILY@2000 TOPIC 10/09/18 20:00 11/08/18 19:59 10/10/18 21:10 Clonidine HCl (Catapres TTS-1) 1 patch QWEEK TDERMAL 10/09/18 21:00 11/08/18 20:59 10/09/18 21:23 Clonidine HCl (Catapres Tab) 0.1 mg Q6H PRN ORAL SBP>180 10/09/18 07:53 11/08/18 07:52 10/09/18 09:00 Dextrose (Dextrose 50%) 25 ml Q30M PRN IV Hypoglycemia 10/06/18 11:30 11/04/18 08:59 Dextrose (Dextrose 50%) 50 ml Q30M PRN IV Hypoglycemia 10/06/18 11:30 11/04/18 08:59 Enalapril Maleate (Vasotec) 5 mg DAILY ORAL 10/07/18 09:00 11/04/18 09:59 10/08/18 08:21 Heparin Sodium (Porcine) (Heparin 5000 units/ml) 5,000 units EVERY 8 HOURS SUBQ 10/08/18 06:00 11/07/18 05:59 10/10/18 06:34 Heparin Sodium/ Sodium Chloride (Heparin 1000 units/500ml Premix) 1,000 unit ONCE PRN IV picc line placement 10/09/18 19:30 10/11/18 19:29 Hydralazine HCl (Apresoline) 10 mg Q4H PRN IV For High Blood Pressure 10/09/18 12:50 11/08/18 12:49 10/11/18 14:22 Insulin Aspart (NovoLOG) BEFORE MEALS AND HS SUBQ 10/06/18 11:30 11/04/18 11:29 10/11/18 11:54 Lidocaine HCl (Xylocaine 1% 30ml) 30 ml ONCE PRN INJ picc line placement 10/09/18 19:30 10/11/18 19:29 Ondansetron HCl (Zofran) 4 mg Q4H PRN IVP Nausea & Vomiting 10/06/18 11:15 11/05/18 11:14 Promethazine HCl/ Codeine (Phenergan with Codeine) 5 ml Q4H PRN ORAL For Cough 10/06/18 11:45 11/04/18 11:44 Sitagliptin Phosphate (Januvia) 50 mg ACBREAKFAST ORAL 10/07/18 06:30 11/05/18 06:29 10/11/18 05:22 Sodium Chloride 1,000 ml @ 150 mls/hr Q6H40M IV 10/06/18 11:14 11/05/18 11:13 10/11/18 11:54 Vancomycin HCl (Vanco rx to dose) 1 ea DAILY PRN MISC Per rx protocol 10/11/18 14:45 11/10/18 14:44 Vancomycin HCl 750 mg/Sodium Chloride 275 ml @ 183.333 mls/hr Q24H IVPB 10/12/18 16:00 10/17/18 15:59 Vancomycin HCl/ Dextrose 275 ml @ 183.333 mls/hr ONCE ONCE IVPB 10/11/18 16:00 10/11/18 17:29 Allergies: Coded Allergies: No Known Allergies (Unverified , 02/27/18) ROS Limited/Unobtainable: No Constitutional: Reports: no symptoms HEENT: Reports: no symptoms Cardiovascular: Reports: no symptoms Respiratory: Reports: no symptoms Gastrointestinal/Abdominal: Reports: no symptoms Genitourinary: Reports: no symptoms 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: Reports: no symptoms Subjective 73 YO F admitted with shortness of breath. Now pneumonia and sepsis. Also left foot ulcer. Cover for Int Med-Dr Yonny Objective Last Vital Signs Date Time Temp Pulse Resp B/P (MAP) Pulse Ox O2 Delivery O2 Flow Rate FiO2 10/11/18 15:29 81 159/71 (100) 10/11/18 14:31 98.4 18 96 10/11/18 09:00 Room Air 10/11/18 08:04 21 Laboratory Tests Test 10/11/18 05:40 White Blood Count 10.9 K/UL (4.8-10.8) H Red Blood Count 3.49 M/UL (4.20-5.40) L Hemoglobin 7.9 G/DL (12.0-16.0) L Hematocrit 26.1 % (37.0-47.0) L Mean Corpuscular Volume 75 FL (80-99) L Mean Corpuscular Hemoglobin 22.8 PG (27.0-31.0) L Mean Corpuscular Hemoglobin Concent 30.5 G/DL (32.0-36.0) L Red Cell Distribution Width 13.8 % (11.6-14.8) Platelet Count 342 K/UL (150-450) Mean Platelet Volume 7.1 FL (6.5-10.1) Neutrophils (%) (Auto) % (45.0-75.0) Lymphocytes (%) (Auto) % (20.0-45.0) Monocytes (%) (Auto) % (1.0-10.0) Eosinophils (%) (Auto) % (0.0-3.0) Basophils (%) (Auto) % (0.0-2.0) Sodium Level 145 MMOL/L (136-145) Potassium Level 4.4 MMOL/L (3.5-5.1) Chloride Level 112 MMOL/L (98-107) H Carbon Dioxide Level 24 MMOL/L (21-32) Anion Gap 9 mmol/L (5-15) Blood Urea Nitrogen 24 mg/dL (7-18) H Creatinine 1.2 MG/DL (0.55-1.30) Estimat Glomerular Filtration Rate mL/min (>60) Glucose Level 127 MG/DL (74-106) H Calcium Level 9.1 MG/DL (8.5-10.1) Intake and Output 10/10/18 10/11/18 19:00 07:00 Intake Total 3960 ml Output Total 250 ml Balance 3710 ml Intake Oral 360 ml IV Total 3000 ml Other 600 ml Output Urine Total 250 ml # Voids 6 4 # Bowel Movements 1 Objective Objective GENERAL: Awake and responsive, in no acute distress. HEAD AND NECK: Pupils are equal and reactive to light. Extraocular movements intact. Neck was supple. No JVD. LUNGS: Good air entry with no wheezing or rales. HEART: S1, S2. Regular rhythm. No Murmur or gallops. ABDOMEN: Soft, nondistended, and nontender. Morbidly obese. EXTREMITIES: No cyanosis or clubbing. left lower extremity edema with erythematous, redness. Left foot ulceration in 4th metatarsal with minimal discharge. NEUROLOGIC: Cranial nerves II through XII grossly intact. Motor is 5/5 in all extremities. Gait is intact. RECTAL/GENITOURINARY: Refused and deferred. PSYCHIATRIC: Mood and affect is intact. Assessment/Plan Assessment/Plan Assessment/Plan Assessment/Plan ASSESSMENT: 1. Shortness of breath and cough, possible due to the bronchopneumonia. 2. Hypertension. 3. Dyslipidemia. 4. Morbid obesity. 5. Sepsis secondary to the bronchitis or early bronchopneumonia. 6. Chronic kidney disease. 7. History of left lower extremity cellulitis. 8. Anemia. 9. Left foot DM ulcer with acute osteomyelitis PLAN: Antibiotics: D/C Cefepime and azithromycin per ID; completed course Follow up with Pulmonary consultation with Dr. Ambriz ID consultation with Dr. Plummer Podiatry consult with Dr. Elizondo Nebulizer treatment as needed. Code status: Full Code. DVT prophylaxis: heparin subcutaneous. Dr. Garvey consultation noted Jony Cardona MD Oct 11, 2018 16:44
--- NOTE | 2018-10-11 19:40 | NUR ---
HAND-OFF: Report given to GEORGE Cole. Patient in stable condition.
--- NOTE | 2018-10-11 19:41 | NUR ---
NURSE NOTES: RECEIVED PATIENT SITTING IN BED. PATIENT ALERT AND ORIENTED X4. FALL PRECAUTIONS IN PLACE: CALL LIGHT, BEDSIDE TABLE AND COMMODE WITHIN REACH, BED IN LOW POSITION. PATIENT DECLINED TO USE BEDSIDE COMMODE. INSTRUCTED PATIENT ON FALL PRECAUTIONS, PATIENT VERBALIZED UNDERSTANDING, BUT STILL REFUSING TO USE COMMODE. PLAN OF CARE REVIEWED.
[2018-10-11] MEDS: Dyna-Hex 2% Top Sol 2oz TOPIC SCH (20:38)
[2018-10-11] MEDS: cefTRIAXone 2 GM in D5W 55 ML IVPB SCH (20:38)
[2018-10-12] VITALS: BP 155/77
--- NOTE | 2018-10-12 00:43 | NUR ---
NURSE NOTES: ASSISTED PATIENT TO BR AND BACK TO BED. DRESSING TO RIGHT FOOT CHANGED ORDERED. PATIENT REFUSING TO HAVE BED ALARM ON. INSTRUCTED PATIENT TO CALL FOR ASSISTANCE, PATIENT VERBALIZED UNDERSTANDING.
[2018-10-12 04:00] VITALS: BP 156/81
[2018-10-12] MEDS: Heparin 5000 units/ml inj SUBQ SCH ×3 (06:00→22:00)
[2018-10-12] MEDS: sitaGLIPtin 50mg tab ORAL SCH (06:17)
[2018-10-12] MEDS: NovoLOG Insulin Flexpen SUBQ SCH ×4 (06:20→21:45)
[2018-10-12 06:53] LABS: HEMATOCRIT 25.6 % (37.0-47.0); HEMOGLOBIN 7.8 G/DL (12.0-16.0); MEAN CORPUSCULAR VOLUME 76 FL (80-99); PLATELET COUNT 347 K/UL (150-450); RED BLOOD COUNT 3.37 M/UL (4.20-5.40); RED CELL DISTRIBUTION WIDTH 14.4 % (11.6-14.8); WHITE BLOOD COUNT 10.9 K/UL (4.8-10.8)
[2018-10-12 07:15] LABS: ANION GAP 8 mmol/L (5-15); BLOOD UREA NITROGEN 22 mg/dL (7-18); CALCIUM 8.8 MG/DL (8.5-10.1); CARBON DIOXIDE 24 MMOL/L (21-32); CHLORIDE 110 MMOL/L (98-107); CREATININE 1.3 MG/DL (0.55-1.30); POTASSIUM 4.2 MMOL/L (3.5-5.1); SODIUM 142 MMOL/L (136-145)
--- NOTE | 2018-10-12 07:17 | NUR ---
HAND-OFF: Report given to Marcy HOWARD RN. PATIENT RESTING IN BED, NO SIGNS OF DISTRESS NOTED.
--- NOTE | 2018-10-12 07:17 | NUR ---
NURSE NOTES: Report received from GEORGE Cole. Patient awake and having breakfast. In RA. Denies any pain or SOB. PICC line SL. Pt. had refused IV fluid per night RN. Bed on lowest position, side rails upx2, brakes engaged. Call light within easy reach.
[2018-10-12 08:00] VITALS: BP 140/80
--- NOTE | 2018-10-12 09:10 | NUR ---
NURSE NOTES: Refuses BP medication.
[2018-10-12] MEDS: Enalapril 5mg tab ORAL SCH (09:17)
--- NOTE | 2018-10-12 09:32 | NUR ---
DISCHARGE PLANNING PT HAS BEEN ACCEPTED AT [facility] ROOM 38 ONCE MEDICALLY CLEARED.
--- NOTE | 2018-10-12 09:35 | NUR ---
*-*INSURANCE*-* UPDATED CLINICALS HAVE BEEN FAXED TO [facility]: [facility] P: [phone] F: [phone] (FAX CLINICALS)
--- NOTE | 2018-10-12 09:40 | NUR ---
PT EVALUATION NOTE Patient seen for initial evaluation, see complete evaluation for details. Patient presents with generalized weakness and impaired balance which affects patient's ability to perform mobility tasks. Patient will benefit from skilled inpatient PT intervention to address strength, balance, safety and functional mobility. Recommend discharge to SNF for further rehab to improve level of function and endurance once medically cleared by MD. Patient has 4 wheeled walker, FWW and shower chair. Addendum: 10/12/18 at 1158 by YAMIL SHEEHAN PT Amended: Links added.
--- NOTE | 2018-10-12 10:10 | NUR ---
NURSE NOTES: Teaching done regarding BP meds.
--- NOTE | 2018-10-12 11:57 | Pulmonology Progress Note ---
Assessment/Plan Problems: (1) Sepsis (2) Acute bronchitis (3) Osteomyelitis (4) Cellulitis (5) UTI (urinary tract infection) (6) ATN (acute tubular necrosis) (7) Anemia (8) Venous stasis of lower extremity (9) Peripheral neuropathy (10) Diabetes mellitus type II, uncontrolled (11) HTN (hypertension) Assessment/Plan no new complains on Vancomycin and cefepime BP slightly better sinus at 85 f/u renal improving continue abx check electrolytes Subjective ROS Limited/Unobtainable: No Constitutional: Reports: no symptoms HEENT: Repors: no symptoms Allergies: Coded Allergies: No Known Allergies (Unverified , 02/27/18) Objective Last 24 Hour Vital Signs Date Time Temp Pulse Resp B/P (MAP) Pulse Ox O2 Delivery O2 Flow Rate FiO2 10/12/18 09:17 140/80 10/12/18 09:00 83 140/80 10/12/18 09:00 Room Air 10/12/18 08:00 98.5 83 18 140/80 (100) 98 10/12/18 08:00 87 10/12/18 04:00 98.8 86 18 156/81 (106) 98 10/12/18 04:00 77 10/12/18 00:00 81 10/12/18 00:00 97.4 80 18 155/77 (103) 97 10/11/18 21:00 Room Air 10/11/18 20:00 92 10/11/18 20:00 98.2 83 19 158/72 (100) 96 10/11/18 19:52 84 18 97 Room Air 21 10/11/18 16:00 104 10/11/18 15:29 81 159/71 (100) 10/11/18 14:31 98.4 78 18 178/70 (106) 96 10/11/18 14:22 178/70 10/11/18 12:00 98.4 87 18 178/70 (106) 97 10/11/18 12:00 93 Intake and Output 10/11/18 10/12/18 19:00 07:00 Intake Total 500 ml 665 ml Balance 500 ml 665 ml Intake Oral 500 ml IV Total 665 ml # Voids 6 5 General Appearance: WD/WN, no acute distress HEENT: normocephalic Respiratory/Chest: chest wall non-tender, lungs clear Breasts: no masses Cardiovascular: normal peripheral pulses Abdomen: normal bowel sounds, no organomegaly Genitourinary: normal external genitalia 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: sql report writer 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 normal Laboratory Tests 10/12/18 06:46: White Blood Count 10.9H, Red Blood Count 3.37L, Hemoglobin 7.8L, Hematocrit 25.6L, Mean Corpuscular Volume 76L, Mean Corpuscular Hemoglobin 23.1L, Mean Corpuscular Hemoglobin Concent 30.3L, Red Cell Distribution Width 14.4, Platelet Count 347, Mean Platelet Volume 6.9, Neutrophils (%) (Auto) , Lymphocytes (%) (Auto) , Monocytes (%) (Auto) , Eosinophils (%) (Auto) , Basophils (%) (Auto) , Differential Total Cells Counted 100, Neutrophils % ( Manual) 67, Lymphocytes % (Manual) 19L, Monocytes % (Manual) 13H, Eosinophils % (Manual) 1, Basophils % (Manual) 0, Band Neutrophils 0, Platelet Estimate Adequate, Platelet Morphology Normal, Hypochromasia 1+, Anisocytosis 1+, Microcytosis 2+, Sodium Level 142, Potassium Level 4.2, Chloride Level 110H, Carbon Dioxide Level 24, Anion Gap 8, Blood Urea Nitrogen 22H, Creatinine 1.3, Estimat Glomerular Filtration Rate , Glucose Level 168H, Calcium Level 8.8 Current Medications Medications (Trade) Dose Ordered Sig/Alfonso Route PRN Reason Start Time Stop Time Status Last Admin Dose Admin Acetaminophen (Tylenol) 650 mg Q6H PRN ORAL Mild Pain/Temp > 100.5 10/06/18 11:15 11/05/18 11:14 Acetaminophen/ Hydrocodone Bitart ([place] 5/325) 1 tab Q6H PRN ORAL Moderate Pain (Pain Scale 4-6) 10/06/18 11:15 10/13/18 11:14 Amlodipine Besylate (Norvasc) 10 mg DAILY ORAL 10/08/18 13:00 11/07/18 12:59 10/11/18 08:57 Ceftriaxone Sodium 2 gm/ Dextrose 55 ml @ 110 mls/hr Q24H IVPB 10/11/18 21:00 10/18/18 20:59 10/11/18 20:38 Chlorhexidine Gluconate (Lorena-Hex 2%) 1 applic DAILY@2000 TOPIC 10/09/18 20:00 11/08/18 19:59 10/11/18 20:38 Clonidine HCl (Catapres TTS-1) 1 patch QWEEK TDERMAL 10/09/18 21:00 11/08/18 20:59 10/09/18 21:23 Clonidine HCl (Catapres Tab) 0.1 mg Q6H PRN ORAL SBP>180 10/09/18 07:53 11/08/18 07:52 10/09/18 09:00 Dextrose (Dextrose 50%) 25 ml Q30M PRN IV Hypoglycemia 10/06/18 11:30 11/04/18 08:59 Dextrose (Dextrose 50%) 50 ml Q30M PRN IV Hypoglycemia 10/06/18 11:30 11/04/18 08:59 Enalapril Maleate (Vasotec) 5 mg DAILY ORAL 10/07/18 09:00 11/04/18 09:59 10/12/18 09:17 Heparin Sodium (Porcine) (Heparin 5000 units/ml) 5,000 units EVERY 8 HOURS SUBQ 10/08/18 06:00 11/07/18 05:59 10/11/18 20:49 Hydralazine HCl (Apresoline) 10 mg Q4H PRN IV For High Blood Pressure 10/09/18 12:50 11/08/18 12:49 10/11/18 14:22 Insulin Aspart (NovoLOG) BEFORE MEALS AND HS SUBQ 10/06/18 11:30 11/04/18 11:29 10/11/18 17:29 Ondansetron HCl (Zofran) 4 mg Q4H PRN IVP Nausea & Vomiting 10/06/18 11:15 11/05/18 11:14 Promethazine HCl/ Codeine (Phenergan with Codeine) 5 ml Q4H PRN ORAL For Cough 10/06/18 11:45 11/04/18 11:44 Sitagliptin Phosphate (Januvia) 50 mg ACBREAKFAST ORAL 10/07/18 06:30 11/05/18 06:29 10/12/18 06:17 Sodium Chloride 1,000 ml @ 150 mls/hr Q6H40M IV 10/06/18 11:14 11/05/18 11:13 10/11/18 23:04 Vancomycin HCl (Vanco rx to dose) 1 ea DAILY PRN MISC Per rx protocol 10/11/18 14:45 11/10/18 14:44 Vancomycin HCl 750 mg/Sodium Chloride 275 ml @ 183.333 mls/hr Q24H IVPB 10/12/18 16:00 10/17/18 15:59 Dong Ambriz MD Oct 12, 2018 11:57
[2018-10-12 12:00] VITALS: BP 160/75
[2018-10-12] MEDS ORDERED: AMLODIPINE BESY10 MG ORAL (13:29)
[2018-10-12] MEDS ORDERED: FOLIC ACID1 MG ORAL (13:33)
[2018-10-12] MEDS ORDERED: KEPPRA500 M3 ORAL (13:34)
[2018-10-12] MEDS ORDERED: MULTIVITAMINS1 EAC2 ORAL (13:34)
[2018-10-12] MEDS ORDERED: B-121000 MCG PO (13:36)
[2018-10-12] MEDS ORDERED: DICYCLOMINE HCL10 MG ORAL (13:36)
[2018-10-12] MEDS ORDERED: PANTOPRAZOLE SO40 MG ORAL (13:37)
[2018-10-12] MEDS ORDERED: LEVOTHYROXINE125 MCG ORAL (13:37)
[2018-10-12] MEDS ORDERED: CARAFATE1 G1 ORAL (13:38)
[2018-10-12] MEDS ORDERED: TENORMIN50 MG ORAL (13:38)
[2018-10-12] MEDS ORDERED: ALPRAZOLAM0.5 M2 ORAL (13:39)
[2018-10-12] MEDS ORDERED: ZOFRAN4 M3 ORAL (13:40)
[2018-10-12] MEDS ORDERED: CYCLOBENZAPRINE5 MG ORAL (13:41)
[2018-10-12] MEDS ORDERED: DIPHENHYDRAMINE25 M1 ORAL (13:42)
[2018-10-12] MEDS ORDERED: TRAMADOL HCL50 MG ORAL (13:45)
--- NOTE | 2018-10-12 15:11 | NUR ---
CASE MANAGEMENT:REVIEW 10/12/18 SI: SEPSIS. ACUTE BRONCHITIS. OSTEO 98.5 87 18 140/80 98% ON RA WBC+10.9 H/H-7.8/25.6 IS: IV VANCOMYCIN Q24 IV ROCEPHIN Q24 IVF@150/HR CLONIDINE PATCH QWEEK NORVASC PO QD HEPARIN SQ Q8HRS VASOTEC PO QD : TELEMETRY STATUS PLAN: DISCHARGE TO SNF ONCE MEDICALLY CLEARED MONITOR H/H
--- NOTE | 2018-10-12 15:58 | Infectious Diseases Prog Note ---
Assessment/Plan Assessment/Plan Assessment: L foot OM -MRI L Foot: Increased STIR and subtle slightly decreased T1 signal within the fourth proximal phalanx this is concerning for acute osteomyelitis. More questionable increased STIR signal in the distal fourth metatarsal and metatarsal head without definite T1 signal abnormality may be reactive versus representing acute early osteomyelitis. Questionable subtle increased STIR signal within the fifth proximal phalanx without definite T1 signal abnormality. This could represent very early osteomyelitis versus reactive change.. Evidence of either prior third metatarsal osteotomy versus ununited fracture, new since prior exam of 2014. Diffuse edema of the subcutaneous fat, particularly dorsally, as well as the deep compartments. This could represent cellulitis versus edema of vasogenic origin. No discrete collection to suggest abscess demonstrated. Sepsis- 2ry to acute bronchitis vs early PNA-SP -10/10 CT chest: Trace bilateral pleural effusions. Atherosclerotic vascular disease. Small nodes in the axilla bilaterally nonspecific. Generalized subcutaneous edema nonspecific in nature -u/a no pyuria; ucx diphtheroids -Bcx NTD -CXR: Query mild pulmonary vascular congestion -sp cx normal lior fever; SP Leukocytosis, resolving DM2 HTN hx of leg cellulitis Plan: -Continue IV Vancomycin #2 and Ceftriaxone #2 (abx d #9) until 11/20/18 for foot OM -weekly CBC,CMP -10/11 SP Cefepime #8 -10/10 SP Azithromycin #7 -10/05 SP Azithromycin x1 -f/u cx -Monitor CBC/CMP, temperatures -aspiration precautions -Cdiff if diarrhea Thank you for this consultation. Will continue to follow along with you. Subjective Allergies: Coded Allergies: No Known Allergies (Unverified , 02/27/18) Subjective afebrile leukocytosis resolving Bcx NTD Objective Vital Signs Last 24 Hour Vital Signs Date Time Temp Pulse Resp B/P (MAP) Pulse Ox O2 Delivery O2 Flow Rate FiO2 10/12/18 09:17 140/80 10/12/18 09:00 83 140/80 10/12/18 09:00 Room Air 10/12/18 08:00 98.5 83 18 140/80 (100) 98 10/12/18 08:00 87 10/12/18 04:00 98.8 86 18 156/81 (106) 98 10/12/18 04:00 77 10/12/18 00:00 81 7/19/19 00:00 97.4 80 18 155/77 (103) 97 10/11/18 21:00 Room Air 10/11/18 20:00 92 10/11/18 20:00 98.2 83 19 158/72 (100) 96 10/11/18 19:52 84 18 97 Room Air 21 10/11/18 16:00 104 Height (Feet): 5 Height (Inches): 4.00 Weight (Pounds): 185 Objective General Appearance: NAD HEENT: NCAT, MMM, EOMI Respiratory: chest non-tender, lungs clear, normal breath sounds Cardiovascular: regular rate, rhythm, no murmur Gastrointestinal: normal bowel sounds, non tender, non-distended Laboratory Tests Test 10/12/18 06:46 White Blood Count 10.9 K/UL (4.8-10.8) H Red Blood Count 3.37 M/UL (4.20-5.40) L Hemoglobin 7.8 G/DL (12.0-16.0) L Hematocrit 25.6 % (37.0-47.0) L Mean Corpuscular Volume 76 FL (80-99) L Mean Corpuscular Hemoglobin 23.1 PG (27.0-31.0) L Mean Corpuscular Hemoglobin Concent 30.3 G/DL (32.0-36.0) L Red Cell Distribution Width 14.4 % (11.6-14.8) Platelet Count 347 K/UL (150-450) Mean Platelet Volume 6.9 FL (6.5-10.1) Neutrophils (%) (Auto) % (45.0-75.0) Lymphocytes (%) (Auto) % (20.0-45.0) Monocytes (%) (Auto) % (1.0-10.0) Eosinophils (%) (Auto) % (0.0-3.0) Basophils (%) (Auto) % (0.0-2.0) Differential Total Cells Counted 100 Neutrophils % (Manual) 67 % (45-75) Lymphocytes % (Manual) 19 % (20-45) L Monocytes % (Manual) 13 % (1-10) H Eosinophils % (Manual) 1 % (0-3) Basophils % (Manual) 0 % (0-2) Band Neutrophils 0 % (0-8) Platelet Estimate Adequate Platelet Morphology Normal Hypochromasia 1+ Anisocytosis 1+ Microcytosis 2+ Sodium Level 142 MMOL/L (136-145) Potassium Level 4.2 MMOL/L (3.5-5.1) Chloride Level 110 MMOL/L (98-107) H Carbon Dioxide Level 24 MMOL/L (21-32) Anion Gap 8 mmol/L (5-15) Blood Urea Nitrogen 22 mg/dL (7-18) H Creatinine 1.3 MG/DL (0.55-1.30) Estimat Glomerular Filtration Rate mL/min (>60) Glucose Level 168 MG/DL (74-106) H Calcium Level 8.8 MG/DL (8.5-10.1) Current Medications Medications (Trade) Dose Ordered Sig/Alfonso Route PRN Reason Start Time Stop Time Status Last Admin Dose Admin Acetaminophen (Tylenol) 650 mg Q6H PRN ORAL Mild Pain/Temp > 100.5 10/06/18 11:15 11/05/18 11:14 Acetaminophen/ Hydrocodone Bitart ([place] 5/325) 1 tab Q6H PRN ORAL Moderate Pain (Pain Scale 4-6) 10/06/18 11:15 10/13/18 11:14 Amlodipine Besylate (Norvasc) 10 mg DAILY ORAL 10/08/18 13:00 11/07/18 12:59 10/11/18 08:57 Ceftriaxone Sodium 2 gm/ Dextrose 55 ml @ 110 mls/hr Q24H IVPB 10/11/18 21:00 10/18/18 20:59 10/11/18 20:38 Chlorhexidine Gluconate (Lorena-Hex 2%) 1 applic DAILY@2000 TOPIC 10/09/18 20:00 11/08/18 19:59 10/11/18 20:38 Clonidine HCl (Catapres TTS-1) 1 patch QWEEK TDERMAL 10/09/18 21:00 11/08/18 20:59 10/09/18 21:23 Clonidine HCl (Catapres Tab) 0.1 mg Q6H PRN ORAL SBP>180 10/09/18 07:53 11/08/18 07:52 10/09/18 09:00 Dextrose (Dextrose 50%) 25 ml Q30M PRN IV Hypoglycemia 10/06/18 11:30 11/04/18 08:59 Dextrose (Dextrose 50%) 50 ml Q30M PRN IV Hypoglycemia 10/06/18 11:30 11/04/18 08:59 Enalapril Maleate (Vasotec) 5 mg DAILY ORAL 10/07/18 09:00 11/04/18 09:59 10/12/18 09:17 Heparin Sodium (Porcine) (Heparin 5000 units/ml) 5,000 units EVERY 8 HOURS SUBQ 10/08/18 06:00 11/07/18 05:59 10/11/18 20:49 Hydralazine HCl (Apresoline) 10 mg Q4H PRN IV For High Blood Pressure 10/09/18 12:50 11/08/18 12:49 10/11/18 14:22 Insulin Aspart (NovoLOG) BEFORE MEALS AND HS SUBQ 10/06/18 11:30 11/04/18 11:29 10/12/18 12:09 Ondansetron HCl (Zofran) 4 mg Q4H PRN IVP Nausea & Vomiting 10/06/18 11:15 11/05/18 11:14 Promethazine HCl/ Codeine (Phenergan with Codeine) 5 ml Q4H PRN ORAL For Cough 10/06/18 11:45 11/04/18 11:44 Sitagliptin Phosphate (Januvia) 50 mg ACBREAKFAST ORAL 10/07/18 06:30 11/05/18 06:29 10/12/18 06:17 Sodium Chloride 1,000 ml @ 150 mls/hr Q6H40M IV 10/06/18 11:14 11/05/18 11:13 10/12/18 12:33 Vancomycin HCl (Vanco rx to dose) 1 ea DAILY PRN MISC Per rx protocol 10/11/18 14:45 11/10/18 14:44 Vancomycin HCl 750 mg/Sodium Chloride 275 ml @ 183.333 mls/hr Q24H IVPB 10/12/18 16:00 10/17/18 15:59 Doris Plummer M.D. Oct 12, 2018 15:58
[2018-10-12 16:00] VITALS: BP 170/67
[2018-10-12] MEDS ORDERED: Vancomycin 750mg/NS 275ml IVPB SCH ×2 (16:00)
--- NOTE | 2018-10-12 16:37 | Podiatric Progress Note ---
Assessment/Plan Patient Margie Yang is a 73 year old female who was admitted on Oct 05, 2018 at 03: 47 with Assessment/Plan A/ 1) Osteomyelitis left foot 2) Cellulitis LLE 3) DM foot ulcer 4) DM neuropathy 5) Bunions 6) Hammertoes P/ 1) ID recs appreciated. Agree with longterm Abx treatment of MRI findings. 2) Elevate legs when sitting or sleeping 3) Wound care orders updated 4) Minimal weight bearing on left foot 5) Agree with SNF placement 6) Advised patient and son that patient is mod to high risk diabetic and needs q2 month Podiatry follow ups after she resolves this current foot wound. Son understands and will make sure she is appointed regularly. I gave them my office number for follow up. Subjective Allergies: Coded Allergies: No Known Allergies (Unverified , 02/27/18) Subjective Patient in NAD. Son at bedside. Patient had no idea she had a foot wound until she came to the hospital. She is not seeing a Services Program Manager regularly. Objective Exam Last 24 Hour Vital Signs Date Time Temp Pulse Resp B/P (MAP) Pulse Ox O2 Delivery O2 Flow Rate FiO2 10/12/18 09:17 140/80 10/12/18 09:00 83 140/80 10/12/18 09:00 Room Air 10/12/18 08:00 98.5 83 18 140/80 (100) 98 10/12/18 08:00 87 10/12/18 04:00 98.8 86 18 156/81 (106) 98 10/12/18 04:00 77 10/12/18 00:00 81 10/12/18 00:00 97.4 80 18 155/77 (103) 97 10/11/18 21:00 Room Air 10/11/18 20:00 92 10/11/18 20:00 98.2 83 19 158/72 (100) 96 10/11/18 19:52 84 18 97 Room Air 21 Laboratory Tests Test 10/12/18 06:46 White Blood Count 10.9 K/UL (4.8-10.8) H Red Blood Count 3.37 M/UL (4.20-5.40) L Hemoglobin 7.8 G/DL (12.0-16.0) L Hematocrit 25.6 % (37.0-47.0) L Mean Corpuscular Volume 76 FL (80-99) L Mean Corpuscular Hemoglobin 23.1 PG (27.0-31.0) L Mean Corpuscular Hemoglobin Concent 30.3 G/DL (32.0-36.0) L Red Cell Distribution Width 14.4 % (11.6-14.8) Platelet Count 347 K/UL (150-450) Mean Platelet Volume 6.9 FL (6.5-10.1) Neutrophils (%) (Auto) % (45.0-75.0) Lymphocytes (%) (Auto) % (20.0-45.0) Monocytes (%) (Auto) % (1.0-10.0) Eosinophils (%) (Auto) % (0.0-3.0) Basophils (%) (Auto) % (0.0-2.0) Differential Total Cells Counted 100 Neutrophils % (Manual) 67 % (45-75) Lymphocytes % (Manual) 19 % (20-45) L Monocytes % (Manual) 13 % (1-10) H Eosinophils % (Manual) 1 % (0-3) Basophils % (Manual) 0 % (0-2) Band Neutrophils 0 % (0-8) Platelet Estimate Adequate Platelet Morphology Normal Hypochromasia 1+ Anisocytosis 1+ Microcytosis 2+ Sodium Level 142 MMOL/L (136-145) Potassium Level 4.2 MMOL/L (3.5-5.1) Chloride Level 110 MMOL/L (98-107) H Carbon Dioxide Level 24 MMOL/L (21-32) Anion Gap 8 mmol/L (5-15) Blood Urea Nitrogen 22 mg/dL (7-18) H Creatinine 1.3 MG/DL (0.55-1.30) Estimat Glomerular Filtration Rate mL/min (>60) Glucose Level 168 MG/DL (74-106) H Calcium Level 8.8 MG/DL (8.5-10.1) Microbiology Date/Time Source Procedure Growth Status 10/05/18 00:15 Blood Blood Culture - Final NO GROWTH AFTER 5 DAYS Complete 10/05/18 16:30 Sputum Gram Stain - Final Complete 10/05/18 16:30 Sputum Sputum Culture - Final NORMAL UPPER RESPIRATORY VICTORINO AT 48 ... Complete 10/05/18 22:12 Stool Clostridium difficile Toxin Assay - Final Complete 10/05/18 00:40 Urine,Clean Catch Urine Culture - Final Diphtheroids Complete 10/06/18 19:00 Leg Left Gram Stain - Final Complete 10/06/18 19:00 Wound Culture - Final Staphylococcus Sp Coag Neg Streptococcus Group B Complete Dermatological Dermatological Narrative Left plantar scabbed over wounds noted. Left 4th interspace macerated with serous drainage noted. Left LE more edematous than RLE Martin Baron DPM Oct 12, 2018 16:37
--- NOTE | 2018-10-12 18:10 | NUR ---
NURSE NOTES: wound dressing changed per protocol.
--- NOTE | 2018-10-12 18:28 | Internal Med Progress Note ---
Subjective Date of Service: Oct 12, 2018 Physician Name Jony Cardona Attending Physician Cirilo Blancas MD Current Medications Medications (Trade) Dose Ordered Sig/Alfonso Route PRN Reason Start Time Stop Time Status Last Admin Dose Admin Acetaminophen (Tylenol) 650 mg Q6H PRN ORAL Mild Pain/Temp > 100.5 10/06/18 11:15 11/05/18 11:14 Acetaminophen/ Hydrocodone Bitart ([place] 5/325) 1 tab Q6H PRN ORAL Moderate Pain (Pain Scale 4-6) 10/06/18 11:15 10/13/18 11:14 Amlodipine Besylate (Norvasc) 10 mg DAILY ORAL 10/08/18 13:00 11/07/18 12:59 10/11/18 08:57 Ceftriaxone Sodium 2 gm/ Dextrose 55 ml @ 110 mls/hr Q24H IVPB 10/11/18 21:00 10/18/18 20:59 10/11/18 20:38 Chlorhexidine Gluconate (Lorena-Hex 2%) 1 applic DAILY@2000 TOPIC 10/09/18 20:00 11/08/18 19:59 10/11/18 20:38 Clonidine HCl (Catapres TTS-1) 1 patch QWEEK TDERMAL 10/09/18 21:00 11/08/18 20:59 10/09/18 21:23 Clonidine HCl (Catapres Tab) 0.1 mg Q6H PRN ORAL SBP>180 10/09/18 07:53 11/08/18 07:52 10/09/18 09:00 Dextrose (Dextrose 50%) 25 ml Q30M PRN IV Hypoglycemia 10/06/18 11:30 11/04/18 08:59 Dextrose (Dextrose 50%) 50 ml Q30M PRN IV Hypoglycemia 10/06/18 11:30 11/04/18 08:59 Enalapril Maleate (Vasotec) 5 mg DAILY ORAL 10/07/18 09:00 11/04/18 09:59 10/12/18 09:17 Heparin Sodium (Porcine) (Heparin 5000 units/ml) 5,000 units EVERY 8 HOURS SUBQ 10/08/18 06:00 11/07/18 05:59 10/11/18 20:49 Hydralazine HCl (Apresoline) 10 mg Q4H PRN IV For High Blood Pressure 10/09/18 12:50 11/08/18 12:49 10/11/18 14:22 Insulin Aspart (NovoLOG) BEFORE MEALS AND HS SUBQ 10/06/18 11:30 11/04/18 11:29 10/12/18 17:25 Ondansetron HCl (Zofran) 4 mg Q4H PRN IVP Nausea & Vomiting 10/06/18 11:15 11/05/18 11:14 Promethazine HCl/ Codeine (Phenergan with Codeine) 5 ml Q4H PRN ORAL For Cough 10/06/18 11:45 11/04/18 11:44 Sitagliptin Phosphate (Januvia) 50 mg ACBREAKFAST ORAL 10/07/18 06:30 11/05/18 06:29 10/12/18 06:17 Sodium Chloride 1,000 ml @ 150 mls/hr Q6H40M IV 10/06/18 11:14 11/05/18 11:13 10/12/18 12:33 Vancomycin HCl (Vanco rx to dose) 1 ea DAILY PRN MISC Per rx protocol 10/11/18 14:45 11/10/18 14:44 Vancomycin HCl 750 mg/Sodium Chloride 275 ml @ 183.333 mls/hr Q24H IVPB 10/12/18 16:00 10/17/18 15:59 10/12/18 16:24 Allergies: Coded Allergies: No Known Allergies (Unverified , 02/27/18) ROS Limited/Unobtainable: No Constitutional: Reports: no symptoms HEENT: Reports: no symptoms Cardiovascular: Reports: no symptoms Respiratory: Reports: no symptoms Gastrointestinal/Abdominal: Reports: no symptoms Genitourinary: Reports: no symptoms 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: Reports: no symptoms Subjective 73 YO F admitted with shortness of breath. Now pneumonia and sepsis. Also left foot ulcer. Cover for Int Yan-Dr Blancas Objective Last Vital Signs Date Time Temp Pulse Resp B/P (MAP) Pulse Ox O2 Delivery O2 Flow Rate FiO2 10/12/18 16:00 82 10/12/18 09:17 140/80 10/12/18 09:00 Room Air 10/12/18 08:00 98.5 18 98 10/11/18 19:52 21 Laboratory Tests Test 10/12/18 06:46 White Blood Count 10.9 K/UL (4.8-10.8) H Red Blood Count 3.37 M/UL (4.20-5.40) L Hemoglobin 7.8 G/DL (12.0-16.0) L Hematocrit 25.6 % (37.0-47.0) L Mean Corpuscular Volume 76 FL (80-99) L Mean Corpuscular Hemoglobin 23.1 PG (27.0-31.0) L Mean Corpuscular Hemoglobin Concent 30.3 G/DL (32.0-36.0) L Red Cell Distribution Width 14.4 % (11.6-14.8) Platelet Count 347 K/UL (150-450) Mean Platelet Volume 6.9 FL (6.5-10.1) Neutrophils (%) (Auto) % (45.0-75.0) Lymphocytes (%) (Auto) % (20.0-45.0) Monocytes (%) (Auto) % (1.0-10.0) Eosinophils (%) (Auto) % (0.0-3.0) Basophils (%) (Auto) % (0.0-2.0) Differential Total Cells Counted 100 Neutrophils % (Manual) 67 % (45-75) Lymphocytes % (Manual) 19 % (20-45) L Monocytes % (Manual) 13 % (1-10) H Eosinophils % (Manual) 1 % (0-3) Basophils % (Manual) 0 % (0-2) Band Neutrophils 0 % (0-8) Platelet Estimate Adequate Platelet Morphology Normal Hypochromasia 1+ Anisocytosis 1+ Microcytosis 2+ Sodium Level 142 MMOL/L (136-145) Potassium Level 4.2 MMOL/L (3.5-5.1) Chloride Level 110 MMOL/L (98-107) H Carbon Dioxide Level 24 MMOL/L (21-32) Anion Gap 8 mmol/L (5-15) Blood Urea Nitrogen 22 mg/dL (7-18) H Creatinine 1.3 MG/DL (0.55-1.30) Estimat Glomerular Filtration Rate mL/min (>60) Glucose Level 168 MG/DL (74-106) H Calcium Level 8.8 MG/DL (8.5-10.1) Intake and Output 10/11/18 10/12/18 19:00 07:00 Intake Total 500 ml 665 ml Balance 500 ml 665 ml Intake Oral 500 ml IV Total 665 ml # Voids 6 5 Objective Objective GENERAL: Awake and responsive, in no acute distress. HEAD AND NECK: Pupils are equal and reactive to light. Extraocular movements intact. Neck was supple. No JVD. LUNGS: Good air entry with no wheezing or rales. HEART: S1, S2. Regular rhythm. No Murmur or gallops. ABDOMEN: Soft, nondistended, and nontender. Morbidly obese. EXTREMITIES: No cyanosis or clubbing. left lower extremity edema with erythematous, redness. Left foot ulceration in 4th metatarsal with minimal discharge. NEUROLOGIC: Cranial nerves II through XII grossly intact. Motor is 5/5 in all extremities. Gait is intact. RECTAL/GENITOURINARY: Refused and deferred. PSYCHIATRIC: Mood and affect is intact. Assessment/Plan Assessment/Plan Assessment/Plan Assessment/Plan ASSESSMENT: 1. Shortness of breath and cough, possible due to the bronchopneumonia. 2. Hypertension. 3. Dyslipidemia. 4. Morbid obesity. 5. Sepsis secondary to the bronchitis or early bronchopneumonia. 6. Chronic kidney disease. 7. History of left lower extremity cellulitis. 8. Anemia. 9. Left foot DM ulcer with acute osteomyelitis PLAN: Antibiotics: Vanco and ceftriaxone for osteomyelitis per ID Follow up with Pulmonary consultation with Dr. Ambriz ID consultation with Dr. Plummer Podiatry consult with Dr. Elizondo Nebulizer treatment as needed. Code status: Full Code. DVT prophylaxis: heparin subcutaneous. Dr. Garvey consultation noted Jony Cardona MD Oct 12, 2018 18:28
--- NOTE | 2018-10-12 19:20 | NUR ---
HAND-OFF: Report given to GEORGE Roldan. Patient in stable condition.
--- NOTE | 2018-10-12 19:30 | NUR ---
NURSE NOTES: Received patient from Sergey VAZQUEZ. Patient sitting at bedside, alert and oriented x 4. On room air, no s/s of respiratory distress. Patient is ambulatory, transfers from bed to chair independently. Dressing on left foot ulcer intact, last changed today. PICC on PASQUALE intact, dressing clean and dry, changed 10/11/18, NS infusing at 150ml/hr. Call light within reach.
[2018-10-12] MEDS ORDERED: JANUVIA50 MG ORAL (19:45)
[2018-10-12 20:00] VITALS: BP 160/90
--- NOTE | 2018-10-12 20:30 | NUR ---
NURSE NOTES: Patient refused IV fluids. Stated she only wants the antibiotics.
[2018-10-12] MEDS: cefTRIAXone 2 GM in D5W 55 ML IVPB SCH (20:39)
[2018-10-12] MEDS: Dyna-Hex 2% Top Sol 2oz TOPIC SCH (20:40)
--- NOTE | 2018-10-12 22:00 | NUR ---
NURSE NOTES: Patient refused heparin. States she already had one. Informed her that she gets it every 8 hours. Patient still refused.
[2018-10-13] VITALS: BP 158/80
[2018-10-13 04:00] VITALS: BP 170/60
[2018-10-13] MEDS: Heparin 5000 units/ml inj SUBQ SCH (05:58)
[2018-10-13] MEDS: NovoLOG Insulin Flexpen SUBQ SCH ×2 (06:30→11:30)
[2018-10-13] MEDS: sitaGLIPtin 50mg tab ORAL SCH (06:30)
[2018-10-13 07:15] LABS: HEMATOCRIT 25.6 % (37.0-47.0); HEMOGLOBIN 7.7 G/DL (12.0-16.0); MEAN CORPUSCULAR VOLUME 76 FL (80-99); PLATELET COUNT 310 K/UL (150-450); RED BLOOD COUNT 3.39 M/UL (4.20-5.40); RED CELL DISTRIBUTION WIDTH 14.3 % (11.6-14.8); WHITE BLOOD COUNT 10.2 K/UL (4.8-10.8)
--- NOTE | 2018-10-13 07:30 | NUR ---
NURSE NOTES: Nurse report given by GEORGE Roldan. Patient is awake and sitting at bedside. No sign of SOB or distress, patient denies pain. Bed at lowest position, break engaged, call light within reach. AO x 4. Patient is upset and wants to be discharge as soon as possible by today. Patient refused another lab drawn. Lab is notified. Will continue to monitor.
[2018-10-13 07:34] LABS: % IRON SATURATION 19 % (15-50); IRON 35 ug/dL (50-175); TOTAL IRON BINDING CAPACITY 188 ug/dL (250-450)
[2018-10-13 07:43] LABS: ALANINE AMINOTRANSFERASE 12 U/L (12-78); ALBUMIN 2.4 G/DL (3.4-5.0); ALBUMIN/GLOBULIN RATIO 0.5 (1.0-2.7); ALKALINE PHOSPHATASE 133 U/L (46-116); ANION GAP 11 mmol/L (5-15); ASPARTATE AMINO TRANSFERASE 18 U/L (15-37); BILIRUBIN,TOTAL 0.2 MG/DL (0.2-1.0); BLOOD UREA NITROGEN 25 mg/dL (7-18); CARBON DIOXIDE 22 MMOL/L (21-32); CHLORIDE 110 MMOL/L (98-107); CREATININE 1.3 MG/DL (0.55-1.30); FERRITIN 109 NG/ML (8-388); PHOSPHORUS 3.7 MG/DL (2.5-4.9); POTASSIUM 4.3 MMOL/L (3.5-5.1); SODIUM 143 MMOL/L (136-145)
[2018-10-13 08:00] VITALS: BP 119/63
[2018-10-13 09:00] VITALS: BP 119/63
[2018-10-13] MEDS: Enalapril 5mg tab ORAL SCH (09:00)
--- NOTE | 2018-10-13 09:00 | NUR ---
NURSE NOTES: Doctor order another lavender tube to be drawn for Folate, I explained to the patient and she still refused to let me withdraw her blood for test. She also refused her 0900 medications: Enalapril and Amlodipine. Her BP 119/63, HR 86, O2 98, Temp 98.1. She stated " my blood pressure is fine, I don't need to take these medications." I contacted Dr. Blancas about the situation and awaiting for response.
--- NOTE | 2018-10-13 10:24 | NUR ---
NURSE NOTES: patient have discharge order, call placed to [facility] and spoke to Tesha and was told to call Vanda Dixon, , called and spoke to Vanda dixon and according to her, pt is being accepted and okay to admit patient.
[2018-10-13] MEDS ORDERED: NS 275ml ONE (10:54)
[2018-10-13] MEDS ORDERED: Tubing IV Secondary IV ONE (10:54)
[2018-10-13] MEDS: Magnesium Oxide 400mg tab ORAL SCH ×2 (11:28→11:39)
--- NOTE | 2018-10-13 11:40 | NUR ---
NURSE NOTES: Patient refused Magnesium Oxide and stated: "it is not going to help me in anyway, I do not want it." I held the medication after giving her the side effects of not taking medication.
--- NOTE | 2018-10-13 11:42 | Pulmonology Progress Note ---
Assessment/Plan Assessment/Plan ASSESSMENT Sepsis secondary to acute bronchitis versus early bronchopneumonia -resolved Acute left foot osteomyelitis Acute bronchitis History of lower extremity cellulitis Acute kidney injury Diabetes mellitus out of control Hypertension Venous stasis Anemia Peripheral neuropathy Obesity PLAN OF CARE MRI of the L foot noted abx as per ID recs BCX negative , SCX negative, UCX + diphtheroids/ contaminant , WCX with strep group B and SCON PICC line placed for long-term of antibiotics Leukocytosis resolving Vascular surgery consultation appreciated DVT prophylaxis carotid duplex with minimal 30% stenosis bilateral ICA Arterial duplex BLE with no significant arterial occlusive disease Venous duplex BLE negative Echo with pEF 60%, mild LVH and RVSP of 24 lipid panel BP management with CCB, TIFFANIE and clonidine., also has PRN meds BS management with Januvia and SSI, hemoglobin A1c -9.1, not at goal , will need close monitoring and further optimization as outpatient counseled on diabetic diet pain management wound care as per podiatry recommendation monitor renal parameters lytes , correct electrolytes as needed , avoid nephrotoxic , creatinine trending down monitor H&H with goal to keep hemoglobin above 7 anemia work-up stool OB CEA within normal limits supportive care bowel regimen dc todaym continued abx as per ID rec to complete course for OM /see medicat recon case discussed and evaluated by supervising physician Subjective Allergies: Coded Allergies: No Known Allergies (Unverified , 02/27/18) Subjective denies chest pain, SOB occasional cough, dry, no hemoptysis Objective Last 24 Hour Vital Signs Date Time Temp Pulse Resp B/P (MAP) Pulse Ox O2 Delivery O2 Flow Rate FiO2 10/13/18 09:00 86 119/63 10/13/18 09:00 119/63 10/13/18 08:00 98.1 86 18 119/63 (81) 98 10/13/18 06:42 72 16 96 Room Air 21 10/13/18 05:52 170/60 10/13/18 04:56 79 10/13/18 04:00 98.4 71 18 170/60 (96) 97 10/13/18 00:00 98.1 83 18 158/80 (106) 99 10/13/18 00:00 74 10/12/18 21:00 Room Air 10/12/18 20:00 97.9 78 18 160/90 (113) 97 7/19/19 19:33 78 10/12/18 19:06 170/67 10/12/18 16:00 98.1 84 18 170/67 (101) 98 10/12/18 16:00 82 10/12/18 12:00 76 10/12/18 12:00 98.4 78 18 160/75 (103) 100 Intake and Output 10/12/18 10/13/18 19:00 07:00 Intake Total 400 ml Balance 400 ml Intake Oral 400 ml # Voids 3 2 # Bowel Movements 1 General Appearance: no acute distress, other - A/A/O x4 obese AA female HEENT: normocephalic, atraumatic, anicteric, mucous membranes moist, PERRL Respiratory/Chest: lungs clear, no respiratory distress, no accessory muscle use Cardiovascular: normal rate - SR on tele, other - RUE PICC intact Abdomen: normal bowel sounds, soft, non tender - obese Extremities: other - +2 edema BLE, venous stasis BLE 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: alert, oriented x 3, responsive Musculoskeletal: normal muscle bulk Laboratory Tests 10/13/18 06:20: White Blood Count 10.2, Red Blood Count 3.39L, Hemoglobin 7.7L, Hematocrit 25.6L , Mean Corpuscular Volume 76L, Mean Corpuscular Hemoglobin 22.7L, Mean Corpuscular Hemoglobin Concent 30.1L, Red Cell Distribution Width 14.3, Platelet Count 310, Mean Platelet Volume 7.1, Neutrophils (%) (Auto) , Lymphocytes (%) (Auto) , Monocytes (%) (Auto) , Eosinophils (%) (Auto) , Basophils (%) (Auto) , Differential Total Cells Counted 100, Neutrophils % ( Manual) 60, Lymphocytes % (Manual) 23, Monocytes % (Manual) 12H, Eosinophils % ( Manual) 4H, Basophils % (Manual) 0, Band Neutrophils 1, Platelet Estimate Adequate, Platelet Morphology Normal, Hypochromasia 3+, Anisocytosis 1+, Microcytosis 1+, Erythrocyte Sedimentation Rate 115H, Sodium Level 143, Potassium Level 4.3, Chloride Level 110H, Carbon Dioxide Level 22, Anion Gap 11 , Blood Urea Nitrogen 25H, Creatinine 1.3, Estimat Glomerular Filtration Rate , Glucose Level 149H, Hemoglobin A1c 9.1H, Calcium Level 9.0, Phosphorus Level 3.7 , Magnesium Level 1.6L, Iron Level 35L, Total Iron Binding Capacity 188L, Percent Iron Saturation 19, Unsaturated Iron Binding 153, Ferritin 109, Total Bilirubin 0.2, Aspartate Amino Transf (AST/SGOT) 18, Alanine Aminotransferase ( ALT/SGPT) 12, Alkaline Phosphatase 133H, C-Reactive Protein, Quantitative 5.4H, Total Protein 6.9, Albumin 2.4L, Globulin 4.5, Albumin/Globulin Ratio 0.5L, Vitamin B12 Level 688, RBC Folate Hemolysate [Pending], Red Blood Cell Folate [ Pending] Current Medications Medications (Trade) Dose Ordered Sig/Alfonso Route PRN Reason Start Time Stop Time Status Last Admin Dose Admin Acetaminophen (Tylenol) 650 mg Q6H PRN ORAL Mild Pain/Temp > 100.5 10/06/18 11:15 11/05/18 11:14 Amlodipine Besylate (Norvasc) 10 mg DAILY ORAL 10/08/18 13:00 11/07/18 12:59 10/11/18 08:57 Ceftriaxone Sodium 2 gm/ Dextrose 55 ml @ 110 mls/hr Q24H IVPB 10/11/18 21:00 10/18/18 20:59 10/12/18 20:39 Chlorhexidine Gluconate (Lorena-Hex 2%) 1 applic DAILY@2000 TOPIC 10/09/18 20:00 11/08/18 19:59 10/12/18 20:40 Clonidine HCl (Catapres TTS-1) 1 patch QWEEK TDERMAL 10/09/18 21:00 11/08/18 20:59 10/09/18 21:23 Clonidine HCl (Catapres Tab) 0.1 mg Q6H PRN ORAL SBP>180 10/09/18 07:53 11/08/18 07:52 10/09/18 09:00 Dextrose (Dextrose 50%) 25 ml Q30M PRN IV Hypoglycemia 10/06/18 11:30 11/04/18 08:59 Dextrose (Dextrose 50%) 50 ml Q30M PRN IV Hypoglycemia 10/06/18 11:30 11/04/18 08:59 Enalapril Maleate (Vasotec) 5 mg DAILY ORAL 10/07/18 09:00 11/04/18 09:59 10/12/18 09:17 Heparin Sodium (Porcine) (Heparin 5000 units/ml) 5,000 units EVERY 8 HOURS SUBQ 10/08/18 06:00 11/07/18 05:59 10/13/18 05:58 Hydralazine HCl (Apresoline) 10 mg Q4H PRN IV For High Blood Pressure 10/09/18 12:50 11/08/18 12:49 10/13/18 05:52 Insulin Aspart (NovoLOG) BEFORE MEALS AND HS SUBQ 10/06/18 11:30 11/04/18 11:29 10/13/18 11:30 Magnesium Oxide (Mag-Ox 400mg) 400 mg BID ORAL 10/13/18 11:15 11/12/18 11:14 10/13/18 11:28 Ondansetron HCl (Zofran) 4 mg Q4H PRN IVP Nausea & Vomiting 10/06/18 11:15 11/05/18 11:14 Promethazine HCl/ Codeine (Phenergan with Codeine) 5 ml Q4H PRN ORAL For Cough 10/06/18 11:45 11/04/18 11:44 Sitagliptin Phosphate (Januvia) 50 mg ACBREAKFAST ORAL 10/07/18 06:30 11/05/18 06:29 10/13/18 06:30 Sodium Chloride 1,000 ml @ 150 mls/hr Q6H40M IV 10/06/18 11:14 11/05/18 11:13 10/12/18 12:33 Vancomycin HCl (Vanco rx to dose) 1 ea DAILY PRN MISC Per rx protocol 10/11/18 14:45 11/10/18 14:44 Vancomycin HCl 750 mg/Sodium Chloride 275 ml @ 183.333 mls/hr Q24H IVPB 10/12/18 16:00 10/17/18 15:59 10/12/18 16:24 Whitney Fong MACHINE OPERATOR ASSISTANT Oct 13, 2018 11:42
[2018-10-13] MEDS ORDERED: VANCO IV (11:59)
[2018-10-13] MEDS ORDERED: ROCEPH IV (11:59)
--- NOTE | 2018-10-13 13:22 | Internal Med Progress Note ---
Subjective Date of Service: Oct 13, 2018 Physician Name Jony Cardona Attending Physician Cirilo Blancas MD Current Medications Medications (Trade) Dose Ordered Sig/Alfonso Route PRN Reason Start Time Stop Time Status Last Admin Dose Admin Acetaminophen (Tylenol) 650 mg Q6H PRN ORAL Mild Pain/Temp > 100.5 10/06/18 11:15 11/05/18 11:14 Amlodipine Besylate (Norvasc) 10 mg DAILY ORAL 10/08/18 13:00 11/07/18 12:59 10/11/18 08:57 Ceftriaxone Sodium 2 gm/ Dextrose 55 ml @ 110 mls/hr Q24H IVPB 10/11/18 21:00 10/18/18 20:59 10/12/18 20:39 Chlorhexidine Gluconate (Lorena-Hex 2%) 1 applic DAILY@2000 TOPIC 10/09/18 20:00 11/08/18 19:59 10/12/18 20:40 Clonidine HCl (Catapres TTS-1) 1 patch QWEEK TDERMAL 10/09/18 21:00 11/08/18 20:59 10/09/18 21:23 Clonidine HCl (Catapres Tab) 0.1 mg Q6H PRN ORAL SBP>180 10/09/18 07:53 11/08/18 07:52 10/09/18 09:00 Dextrose (Dextrose 50%) 25 ml Q30M PRN IV Hypoglycemia 10/06/18 11:30 11/04/18 08:59 Dextrose (Dextrose 50%) 50 ml Q30M PRN IV Hypoglycemia 10/06/18 11:30 11/04/18 08:59 Enalapril Maleate (Vasotec) 5 mg DAILY ORAL 10/07/18 09:00 11/04/18 09:59 10/12/18 09:17 Heparin Sodium (Porcine) (Heparin 5000 units/ml) 5,000 units EVERY 8 HOURS SUBQ 10/08/18 06:00 11/07/18 05:59 10/13/18 05:58 Hydralazine HCl (Apresoline) 10 mg Q4H PRN IV For High Blood Pressure 10/09/18 12:50 11/08/18 12:49 10/13/18 05:52 Insulin Aspart (NovoLOG) BEFORE MEALS AND HS SUBQ 10/06/18 11:30 11/04/18 11:29 10/13/18 11:30 Magnesium Oxide (Mag-Ox 400mg) 400 mg BID ORAL 10/13/18 11:15 11/12/18 11:14 Ondansetron HCl (Zofran) 4 mg Q4H PRN IVP Nausea & Vomiting 10/06/18 11:15 11/05/18 11:14 Promethazine HCl/ Codeine (Phenergan with Codeine) 5 ml Q4H PRN ORAL For Cough 10/06/18 11:45 11/04/18 11:44 Sitagliptin Phosphate (Januvia) 50 mg ACBREAKFAST ORAL 10/07/18 06:30 11/05/18 06:29 10/13/18 06:30 Sodium Chloride 1,000 ml @ 150 mls/hr Q6H40M IV 10/06/18 11:14 11/05/18 11:13 10/12/18 12:33 Vancomycin HCl (Vanco rx to dose) 1 ea DAILY PRN MISC Per rx protocol 10/11/18 14:45 11/10/18 14:44 Vancomycin HCl 750 mg/Sodium Chloride 275 ml @ 183.333 mls/hr Q24H IVPB 10/12/18 16:00 10/17/18 15:59 10/12/18 16:24 Allergies: Coded Allergies: No Known Allergies (Unverified , 02/27/18) ROS Limited/Unobtainable: No Constitutional: Reports: no symptoms HEENT: Reports: no symptoms Cardiovascular: Reports: no symptoms Respiratory: Reports: no symptoms Gastrointestinal/Abdominal: Reports: no symptoms Genitourinary: Reports: no symptoms 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: Reports: no symptoms Subjective 73 YO F admitted with shortness of breath. Now pneumonia and sepsis. Also left foot ulcer. Cover for Int Carrie Blancas Objective Last Vital Signs Date Time Temp Pulse Resp B/P (MAP) Pulse Ox O2 Delivery O2 Flow Rate FiO2 10/13/18 09:00 86 119/63 10/13/18 09:00 Room Air 10/13/18 08:00 98.1 18 98 10/13/18 06:42 21 Laboratory Tests Test 10/13/18 06:20 White Blood Count 10.2 K/UL (4.8-10.8) Red Blood Count 3.39 M/UL (4.20-5.40) L Hemoglobin 7.7 G/DL (12.0-16.0) L Hematocrit 25.6 % (37.0-47.0) L Mean Corpuscular Volume 76 FL (80-99) L Mean Corpuscular Hemoglobin 22.7 PG (27.0-31.0) L Mean Corpuscular Hemoglobin Concent 30.1 G/DL (32.0-36.0) L Red Cell Distribution Width 14.3 % (11.6-14.8) Platelet Count 310 K/UL (150-450) Mean Platelet Volume 7.1 FL (6.5-10.1) Neutrophils (%) (Auto) % (45.0-75.0) Lymphocytes (%) (Auto) % (20.0-45.0) Monocytes (%) (Auto) % (1.0-10.0) Eosinophils (%) (Auto) % (0.0-3.0) Basophils (%) (Auto) % (0.0-2.0) Differential Total Cells Counted 100 Neutrophils % (Manual) 60 % (45-75) Lymphocytes % (Manual) 23 % (20-45) Monocytes % (Manual) 12 % (1-10) H Eosinophils % (Manual) 4 % (0-3) H Basophils % (Manual) 0 % (0-2) Band Neutrophils 1 % (0-8) Platelet Estimate Adequate Platelet Morphology Normal Hypochromasia 3+ Anisocytosis 1+ Microcytosis 1+ Erythrocyte Sedimentation Rate 115 MM/HR (0-30) H Sodium Level 143 MMOL/L (136-145) Potassium Level 4.3 MMOL/L (3.5-5.1) Chloride Level 110 MMOL/L (98-107) H Carbon Dioxide Level 22 MMOL/L (21-32) Anion Gap 11 mmol/L (5-15) Blood Urea Nitrogen 25 mg/dL (7-18) H Creatinine 1.3 MG/DL (0.55-1.30) Estimat Glomerular Filtration Rate mL/min (>60) Glucose Level 149 MG/DL (74-106) H Hemoglobin A1c 9.1 % (4.3-6.0) H Calcium Level 9.0 MG/DL (8.5-10.1) Phosphorus Level 3.7 MG/DL (2.5-4.9) Magnesium Level 1.6 MG/DL (1.8-2.4) L Iron Level 35 ug/dL (50-175) L Total Iron Binding Capacity 188 ug/dL (250-450) L Percent Iron Saturation 19 % (15-50) Unsaturated Iron Binding 153 ug/dL (112-346) Ferritin 109 NG/ML (8-388) Total Bilirubin 0.2 MG/DL (0.2-1.0) Aspartate Amino Transf (AST/SGOT) 18 U/L (15-37) Alanine Aminotransferase (ALT/SGPT) 12 U/L (12-78) Alkaline Phosphatase 133 U/L (46-116) H C-Reactive Protein, Quantitative 5.4 mg/dL (0.00-0.90) H Total Protein 6.9 G/DL (6.4-8.2) Albumin 2.4 G/DL (3.4-5.0) L Globulin 4.5 g/dL Albumin/Globulin Ratio 0.5 (1.0-2.7) L Vitamin B12 Level 688 PG/ML (193-986) RBC Folate Hemolysate Pending Red Blood Cell Folate Pending Intake and Output 10/12/18 10/13/18 19:00 07:00 Intake Total 400 ml Balance 400 ml Intake Oral 400 ml # Voids 3 2 # Bowel Movements 1 Objective Objective GENERAL: Awake and responsive, in no acute distress. HEAD AND NECK: Pupils are equal and reactive to light. Extraocular movements intact. Neck was supple. No JVD. LUNGS: Good air entry with no wheezing or rales. HEART: S1, S2. Regular rhythm. No Murmur or gallops. ABDOMEN: Soft, nondistended, and nontender. Morbidly obese. EXTREMITIES: No cyanosis or clubbing. left lower extremity edema with erythematous, redness. Left foot ulceration in 4th metatarsal with minimal discharge. NEUROLOGIC: Cranial nerves II through XII grossly intact. Motor is 5/5 in all extremities. Gait is intact. RECTAL/GENITOURINARY: Refused and deferred. PSYCHIATRIC: Mood and affect is intact. Assessment/Plan Assessment/Plan Assessment/Plan Assessment/Plan ASSESSMENT: 1. Shortness of breath and cough, possible due to the bronchopneumonia. 2. Hypertension. 3. Dyslipidemia. 4. Morbid obesity. 5. Sepsis secondary to the bronchitis or early bronchopneumonia. 6. Chronic kidney disease. 7. History of left lower extremity cellulitis. 8. Anemia. 9. Left foot DM ulcer with acute osteomyelitis PLAN: Antibiotics: Vanco and ceftriaxone for osteomyelitis until 11/20/18 per ID Follow up with Pulmonary consultation with Dr. Ambriz ID consultation with Dr. Plummer Podiatry consult with Dr. Elizondo Nebulizer treatment as needed. Code status: Full Code. DVT prophylaxis: heparin subcutaneous. Dr. Garvey consultation noted discharge to [facility] Jony Barrow MD Oct 13, 2018 13:21
--- NOTE | 2018-10-13 16:00 | NUR ---
NURSE NOTES: Patient is discharged by [facility]. Patient is stable, no sign of distress or SOB, denies pain. Patient belonging list is checked off and signed by patient. monitoring specialist and ID band are removed. Patient is dressed in her clothes. PICC line is kept with patient per doctor order, because patient is still getting antibiotic through the line.
--- NOTE | 2018-10-14 12:34 | Cardiology Report ---
APPROVED REPORT EXAM: Two-dimensional and M-mode echocardiogram with Doppler and color Doppler. INDICATION Hypertension M-Mode DIMENSIONS IVSd1.2 (0.7-1.1cm)Left Atrium (MM)4.0 (1.6-4.0cm) LVDd5.4 (3.5-5.6cm)Aortic Root2.1 (2.0-3.7cm) PWd1.1 (0.7-1.1cm)Aortic Cusp Exc.1.5 (1.5-2.0cm) LVDs4.2 (2.5-4.0cm) PWs1.7 cm Normal left ventricular chamber size, systolic function and wall motion. Left ventricular ejection fraction estimated to be 60 %. Mild left ventricular hypertrophy. No evidence of pericardial effusion. All other cardiac chamber sizes are within normal limits. Focal aortic valve sclerosis with adequate cusp excursion. Thickened mitral valve leaflets with normal excursion. Mild mitral annulus and aortic root calcification. Pulmonic valve not well visualized. Normal tricuspid valve structure. IVC dilated at 2.3 cm without physiological collapse. A color flow and spectral Doppler study was performed and revealed: Trace aortic regurgitation. Mild mitral regurgitation. Normal left ventricular diastolic function. Trace tricuspid regurgitation. Tricuspid systolic velocities suggests peak right ventricular systolic pressure of 24 mmHg. No pulmonic regurgitation present.
--- NOTE | 2018-10-14 13:26 | Discharge Summary ---
Discharge Summary Discharge Summary _ DATE OF ADMISSION: 10/05/2018 DATE OF DISCHARGE: 10/13/2018 DISCHARGED BY: Dr. Blancas REASON FOR ADMISSION: 73 years old female with past medical history of diabetes mellitus, hypertension , peripheral neuropathy, depression, anxiety, right foot surgery, status post amputation of right half middle toe , presented with chief complaint of dizziness , weakness and altered mental status. Per patient's son , she had cough for a week, nonproductive, no hemoptysis. The night prior to presentation to ED, she had shaking chills and felt weak. Blood sugar was in 400 range. Patient felt weak and dizzy. No focal deficit, no nausea, no vomiting, no diarrhea. Upon evaluation blood pressure was slightly elevated 154/85, patient was tachycardic, with low-grade fever. Pulse oximetry was stable on room air. Laboratory work-up revealed leukocytosis. Urinalysis revealed evidence of probable UTI. EKG revealed sinus tachycardia, no acute ischemic changes. Chest x-ray revealed no acute cardiopulmonary pathology. Urinalysis revealed evidence of urinary tract infection. Patient received IV fluids and antipyretic, mental status improved . Patient subsequently admitted to telemetry floor for further management. CONSULTANTS: pulmonary Dr. Ambriz ID specialist Dr. Plummer vascular surgery Dr. Garvey ordnance engineering technician dr. Bass [facility] COURSE: Patient admitted to telemetry floor. Patient started on broad-spectrum antibiotics as per ID specialist recommendation and IV fluids. Blood cultures were negative. Sputum culture was negative. Urine culture revealed diphtheroids, likely contaminant. Stool for C. difficile was negative. Venous duplex of bilateral lower extremity revealed no evidence of acute DVT. Arterial duplex bilateral lower extremity revealed no significant arterial occlusive disease. Echocardiogram revealed preserved ejection fraction of 60%, mild left ventricular hypertrophy and right ventricular systolic pressure of 24. No evidence of wall motion abnormality. Carotid Doppler demonstrated minimal 30% stenosis bilateral internal carotid arteries. Blood pressure was managed with calcium channel ulises, TIFFANIE inhibitor and clonidine. Patient also had PRN medication. Blood sugar was managed with Januvia and sliding scale of insulin. Hemoglobin A1c 9.1, clearly not at goal. Patient will need close monitoring and further optimization of anti-glycemic regimen as outpatient. Patient was counseled on compliance with diabetic diet. Weaving Loom Operator seen and evaluated patient along with the vascular surgeon. Patient had left toe diabetic foot ulcer , necrotic , however palpable femoral, popliteal, and left foot distal pedal pulses +3. Patient also had evidence of bilateral leg venous stasis changes and left leg cellulitis. Left foot x-ray initially revealed no acute bony trauma. MRI of the left foot revealed evidence concerning for acute osteomyelitis. PICC line was placed for long-term of antibiotics. Antibiotic regimen was optimized as per ID specialist recommendation . Wound culture from the left leg revealed staphylococci coagulase negative and streptococci group B. Patient will need to continue with vancomycin and ceftriaxone till 11/20/2018 to complete the course for treatment of acute osteomyelitis. Patient will need weekly CBC and CMP. Leukocytosis resolved, initially low-grade fevers resolved. Pain management was addressed. Wound care provided as per ordnance engineering technician recommendation. Weaving Loom Operator recommended to elevate legs while sitting or sleeping. Weaving Loom Operator also advised on minimal weightbearing on the left foot. Patient was advised that she has moderate to high risk due to diabetes and required every 2 months follow-up with ordnance engineering technician.. Patient verbalized understanding and reported that she will schedule her appointments regularly. Office number for follow-up with ordnance engineering technician provided. Supplemental oxygen provided as needed to keep pulse oximetry above 92%. Chest x-ray revealed no acute cardiopulmonary pathology. CT chest revealed trace bilateral pleural effusion, evidence of atherosclerotic vascular disease, no adenopathy. Renal parameters and electrolytes were closely monitored, electrolytes corrected as needed, and nephrotoxins were avoided. Creatinine trending down. Prior to discharge, creatinine from 1.7 down to normal 1.3, and BUN from 38 down to 25. Acute kidney injury resolved. Hemoglobin and hematocrit were closely monitored with goal to keep hemoglobin above 7. Anemia work-up revealed evidence of anemia of chronic disease, ferritin 109. Stool for occult blood was not collected. CEA within normal limits. Supportive care provided. Bowel regimen instituted. Placement was arranged in the [facility] facility for IV antibiotics. Patient was stable for transfer. FINAL DIAGNOSES: Acute left foot osteomyelitis Sepsis secondary to acute bronchitis versus early bronchopneumonia - resolved Acute bronchitis History of Bilateral lower extremity chronic venous stasis with left lower extremity cellulitis Diabetic foot ulcer Acute kidney injury -resolved Diabetes mellitus out of control Hypertension Anemia Diabetic neuropathy Obesity DISCHARGE MEDICATIONS: See Medication Reconciliation list. DISCHARGE INSTRUCTIONS: Patient was discharged to the [facility] facility. Follow up with medical doctor at the facility. Whitney Fong NP Oct 14, 2018 13:26
--- NOTE | 2018-10-15 13:26 | NUR ---
*-*INSURANCE*-* DISCHARGE SUMMARY HAVE BEEN FAXED TO [facility]: [facility] P: [phone] F: [phone] (FAX CLINICALS)
== END 2018-10-13 16:10 | DRG 871 ==
LOC: EMR 10-05 01:30 → 2W 10-05 03:47 → EDBEDREQ 10-05 05:53 → 2E 10-05 18:37 → 4E 10-06 11:14 → 2E 10-08 22:54
DX: A41.9 Sepsis, unspecified organism (principal); N17.0 Acute kidney failure with tubular necrosis; J18.9 Pneumonia, unspecified organism; G93.40 Encephalopathy, unspecified; M86.172 Other acute osteomyelitis, left ankle and foot; E11.52 Type 2 diabetes mellitus with diabetic peripheral angiopathy with gangrene; I96 Gangrene, not elsewhere classified; E78.5 Hyperlipidemia, unspecified; E66.01 Morbid (severe) obesity due to excess calories; I12.9 Hypertensive chronic kidney disease with stage 1 through stage 4 chronic kidney disease, or unspecified chronic kidney disease; E11.22 Type 2 diabetes mellitus with diabetic chronic kidney disease; N18.9 Chronic kidney disease, unspecified; J20.9 Acute bronchitis, unspecified; E11.65 Type 2 diabetes mellitus with hyperglycemia; D64.9 Anemia, unspecified; E11.40 Type 2 diabetes mellitus with diabetic neuropathy, unspecified; I87.8 Other specified disorders of veins; M20.42 Other hammer toe(s) (acquired), left foot; M20.41 Other hammer toe(s) (acquired), right foot; E11.621 Type 2 diabetes mellitus with foot ulcer; Z68.35 Body mass index [BMI] 35.0-35.9, adult
CPT/HCPCS: 36415; 36569; 71045; 71046; 71250; 76937; 80048; 80053; 81001; 81003; 82378; 82550; 82553; 82607; 82728; 82746; 82747; 82962; 83036; 83540; 83550; 83605; 83615; 83735; 84100; 84133; 84300; 84484; 84550; 85007; 85025; 85044; 85060; 85610; 85651; 85730; 86140; 86850; 86900; 86901; 87040; 87070; 87086; 87205; 87324; 89050; 93005; 93306; 93880; 93925; 93970; 94664; 96361; 96365; 99285; J1815

== ENCOUNTER 2018-10-30 08:03 | Inpatient (IN) | payer MEDICARE ==
[~2018-10-30] VITALS: Ht 165.1 cm; Wt 101.3 kg
[~2018-10-30 08:03] MED LIST changes: +ALPRAZOLAM0.5 M2 ORAL; +AMLODIPINE BESY10 MG ORAL; +B-121000 MCG PO; +CARAFATE1 G1 ORAL; +CYCLOBENZAPRINE5 MG ORAL; +DICYCLOMINE HCL10 MG ORAL; +DIPHENHYDRAMINE25 M1 ORAL; +FOLIC ACID1 MG ORAL; +KEPPRA500 M3 ORAL; +LEVOTHYROXINE125 MCG ORAL; +MULTIVITAMINS1 EAC2 ORAL; +PANTOPRAZOLE SO40 MG ORAL; +ROCEPH IV; +TENORMIN50 MG ORAL; +TRAMADOL HCL50 MG ORAL; +VANCO IV; +ZOFRAN4 M3 ORAL
[2018-10-30 08:10] VITALS: BP 201/41
--- NOTE | 2018-10-30 08:10 | NUR ---
ED Nurse Note: pt was brought in by ambulance c/o left arm swelling started 4 days ago, pt presents with bilareta lower extremity edema. has sob upon exertion. per ems, pt gained 22 pounds in the series of 4 days because of edema. pt has picc line and is patent upon arrival. pt is aox4, able to ambulate. ermd on bedside.
--- NOTE | 2018-10-30 08:15 | NUR ---
ED Nurse Note: blood drawn using the picc line and was sent to lab.
--- NOTE | 2018-10-30 08:20 | NUR ---
ED Nurse Note: pt bs 62, apple juice given. ermd made aware. pt bp 201/49, ermd made aware.
[2018-10-30 08:32] LABS: BASOPHILS % (AUTO) 1.6 % (0.0-2.0); EOSINOPHILS % (AUTO) 3.2 % (0.0-3.0); HEMATOCRIT 29.6 % (37.0-47.0); HEMOGLOBIN 8.8 G/DL (12.0-16.0); LYMPHOCYTES % (AUTO) 22.3 % (20.0-45.0); MEAN CORPUSCULAR VOLUME 79 FL (80-99); MONOCYTES % (AUTO) 11.4 % (1.0-10.0); NEUTROPHILS % (AUTO) 61.5 % (45.0-75.0); PLATELET COUNT 197 K/UL (150-450); RED BLOOD COUNT 3.75 M/UL (4.20-5.40); RED CELL DISTRIBUTION WIDTH 17.4 % (11.6-14.8); WHITE BLOOD COUNT 9.9 K/UL (4.8-10.8)
--- NOTE | 2018-10-30 08:41 | Emergency Room Report ---
History of Present Illness General Chief Complaint: Edema Source: Patient, Medical Record, EMS Present Illness HPI Patient presents emergency department today complaining of generalized edema. Patient has a history of edema progressively has become worse over the last 5 days. Patient's legs are very swollen. In addition she complains of swelling in the left upper extremity and mild shortness of breath. She denies any fever nausea vomiting diarrhea chills. Denies any chest pain at this time. [facility] Patient is full code. Patient's primary care physician is Dr. Cirilo Blancas. No other complaints are noted. Symptoms noted to be moderate to severe. Review of laboratory work-up from prior [facility]itentiary admission also shows evidence of anemia. Allergies: Coded Allergies: No Known Allergies (Unverified , 02/27/18) Patient History Past Medical History: DM, HTN, CAD Past Surgical History: none Pertinent Family History: none Social History: Denies: smoking, alcohol use, drug use Now: No Reviewed Nursing Documentation: PMH: Agreed; PSxH: Agreed Nursing Documentation-PMH Hx Cardiac Problems: Yes Hx Hypertension: Yes Hx Asthma: No Hx Diabetes: Yes Hx Cancer: No Hx Gastrointestinal Problems: No Hx Neurological Problems: No Hx Peripheral Neuropathy: Yes - S/P RIGHT FOOT SURGERY 02/2013 Review of Systems All Other Systems: negative except mentioned in HPI Physical Exam Vital Signs Date Time Temp Pulse Resp B/P (MAP) Pulse Ox O2 Delivery O2 Flow Rate FiO2 10/30/18 07:57 98.4 64 18 168/80 (109) 96 Room Air Sp02 EP Interpretation: reviewed, normal General Appearance: alert, mild distress, other - Obese Head: atraumatic Eyes: bilateral eye normal inspection ENT: normal ENT inspection, hearing grossly normal, normal voice Neck: normal inspection, full range of motion, supple, no bony tend Respiratory: no respiratory distress, no retraction, decreased breath sounds, crackles - At the bases Cardiovascular #1: regular rate, rhythm, other - Left leg ulcer, edema - Bilateral lower extremity, left upper extremity Gastrointestinal: normal inspection, normal bowel sounds, non tender, soft, no guarding, no hernia Genitourinary: no CVA tenderness Musculoskeletal: back normal, swelling, other - Left lower extremity ulcer and wound infection Neurologic: normal inspection, alert, responsive, speech normal Psychiatric: normal inspection, judgement/insight normal, mood/affect normal Skin: other - Refer to extremity exam Procedures Critical Care Time Critical Care Time Patient had a critical medical condition which untreated could potentially result in life or limb threatening injury. Total critical care time excluding procedures was approximately 45 minutes. Medical Decision Making Diagnostic Impression: Primary Impression: Fluid overload Additional Impressions: Pulmonary edema cardiac cause Cardiomegaly Leg edema Anasarca Acute renal insufficiency ER Course Patient presents emergency department today complaint bilateral lower extremely swelling. Shortness of breath. Left upper extremity swelling. Given the severity of the patient's presentation I felt this is a highly complex patient. This patient required extensive workup. Given patient's presentation patient also had very elevated blood pressure. Therefore I felt this is a critical patient. Patient received Lasix and clonidine to immediately control blood pressure. Patient laboratory work-up showed evidence of CHF and anasarca. There is also evidence of renal insufficiency. Patient had an ultrasound of the left upper extremity which was negative for DVT. Case was discussed with Dr. Cirilo Blancas patient primary care physician and Dr. Ambriz. Patient will be admitted for further treatment. Labs Test 10/30/18 08:19 White Blood Count 9.9 K/UL (4.8-10.8) Red Blood Count 3.75 M/UL (4.20-5.40) Hemoglobin 8.8 G/DL (12.0-16.0) Hematocrit 29.6 % (37.0-47.0) Mean Corpuscular Volume 79 FL (80-99) Mean Corpuscular Hemoglobin 23.4 PG (27.0-31.0) Mean Corpuscular Hemoglobin Concent 29.6 G/DL (32.0-36.0) Red Cell Distribution Width 17.4 % (11.6-14.8) Platelet Count 197 K/UL (150-450) Mean Platelet Volume 8.5 FL (6.5-10.1) Neutrophils (%) (Auto) 61.5 % (45.0-75.0) Lymphocytes (%) (Auto) 22.3 % (20.0-45.0) Monocytes (%) (Auto) 11.4 % (1.0-10.0) Eosinophils (%) (Auto) 3.2 % (0.0-3.0) Basophils (%) (Auto) 1.6 % (0.0-2.0) Prothrombin Time 10.4 SEC (9.30-11.50) Prothromb Time International Ratio 1.0 (0.9-1.1) Activated Partial Thromboplast Time 28 SEC (23-33) Sodium Level 144 MMOL/L (136-145) Potassium Level 4.7 MMOL/L (3.5-5.1) Chloride Level 112 MMOL/L (98-107) Carbon Dioxide Level 27 MMOL/L (21-32) Anion Gap 5 mmol/L (5-15) Blood Urea Nitrogen 35 mg/dL (7-18) Creatinine 2.0 MG/DL (0.55-1.30) Estimat Glomerular Filtration Rate mL/min (>60) Glucose Level 81 MG/DL (74-106) Calcium Level 8.6 MG/DL (8.5-10.1) Total Bilirubin 0.3 MG/DL (0.2-1.0) Aspartate Amino Transf (AST/SGOT) 38 U/L (15-37) Alanine Aminotransferase (ALT/SGPT) 65 U/L (12-78) Alkaline Phosphatase 248 U/L (46-116) Total Creatine Kinase 67 U/L (26-308) Creatine Kinase MB 2.2 NG/ML (0.0-3.6) Creatine Kinase MB Relative Index 3.2 Troponin I 0.000 ng/mL (0.000-0.056) Pro-B-Type Natriuretic Peptide 2633 pg/mL (0-125) Total Protein 6.8 G/DL (6.4-8.2) Albumin 2.4 G/DL (3.4-5.0) Globulin 4.4 g/dL Albumin/Globulin Ratio 0.5 (1.0-2.7) EKG Diagnostic Results Rate: normal Rhythm: NSR ST Segments: no acute changes Rhythm Strip Diag. Results EP Interpretation: yes Rate: 64 Rhythm: NSR, no PVC's, no ectopy Chest X-Ray Diagnostic Results Chest X-Ray Diagnostic Results : Chest X-Ray Ordered: Yes # of Views/Limited/Complete: 1 View Indication: Shortness of Breath EP Interpretation: Yes Interpretation: no consolidation, no pneumothorax, other - Cardiomegaly, pulmonary congestion, pulmonary edema Impression: Other - Acute CHF Electronically Signed by: Electronically signed by Thomas Gillis MD Last Vital Signs Date Time Temp Pulse Resp B/P (MAP) Pulse Ox O2 Delivery O2 Flow Rate FiO2 10/30/18 08:10 98.4 64 18 201/41 96 Room Air Status: improved Disposition: ADMITTED INPATIENT Condition: Serious Referrals: Cirilo Blancas MD (PCP) Thomas Gillis MD Oct 30, 2018 08:41
[2018-10-30 08:44] LABS: ANION GAP 5 mmol/L (5-15); BLOOD UREA NITROGEN 35 mg/dL (7-18); CALCIUM 8.6 MG/DL (8.5-10.1); CARBON DIOXIDE 27 MMOL/L (21-32); CHLORIDE 112 MMOL/L (98-107); POTASSIUM 4.7 MMOL/L (3.5-5.1); SODIUM 144 MMOL/L (136-145)
--- NOTE | 2018-10-30 08:50 | NUR ---
ED Nurse Note: pt medicated as ordered and pt able to tolerate. bp 201/49. pt denies dizziness. denies chest pain. will continue to monitor.
--- NOTE | 2018-10-30 08:53 | NUR ---
ED Nurse Note: xray on bedside
[2018-10-30 09:00] LABS: ALANINE AMINOTRANSFERASE 65 U/L (12-78); ALBUMIN 2.4 G/DL (3.4-5.0); ALBUMIN/GLOBULIN RATIO 0.5 (1.0-2.7); ALKALINE PHOSPHATASE 248 U/L (46-116); ASPARTATE AMINO TRANSFERASE 38 U/L (15-37); BILIRUBIN,TOTAL 0.3 MG/DL (0.2-1.0); CKMB 2.2 NG/ML (0.0-3.6); CREATINE KINASE 67 U/L (26-308)
--- NOTE | 2018-10-30 09:00 | NUR ---
ED Nurse Note: information technology audit manager on bedside
[2018-10-30 09:14] VITALS: BP 207/71
--- NOTE | 2018-10-30 10:17 | Diagnostic Imaging Report ---
Indication: Left upper extremity pain and swelling. Technique: Duplex Doppler imaging of the veins in the upper extremity performed. FINDINGS: The jugular and subclavian veins demonstrate normal color flow and waveform signal. No evidence of thrombosis. Continuation to the axillary vein, brachial, cephalic and basilic veins show no evidence of thrombosis with good compressibility, normal color flow and waveform analysis. Small epitrochlear nodes are noted, nonspecific in nature but likely inflammatory. IMPRESSION: No evidence of thrombosis involving the upper extremity in question.
--- NOTE | 2018-10-30 10:20 | Diagnostic Imaging Report ---
Indication: Chest pain Comparison: 10/06/2018 A single view chest radiograph was obtained. Findings: Pulmonary vascular congestion demonstrated. Heart is is a right-sided PICC line present. The tip is projected over the SVC. Bones are slightly osteopenic. IMPRESSION: CHF
--- NOTE | 2018-10-30 10:25 | NUR ---
ED Nurse Note: ermd made aware of the elevated bp. bp is 208/70 and ermd ordered 60mg lasix iv and carried out. will continue to monitor.
--- NOTE | 2018-10-30 10:40 | NUR ---
ED Nurse Note: ASSISTED PT. WITH BEDSIDE COMMODE
[2018-10-30 10:53] VITALS: BP 203/63
--- NOTE | 2018-10-30 11:27 | NUR ---
ED Nurse Note: BP- 191/58. PER DR. AUGUST. PT IS OK TO GO UP FOP ADMISSION
--- NOTE | 2018-10-30 11:50 | NUR ---
TRANSFER TO FLOOR: Patient transferred to as ordered, per Dr. Gillis. Report given to GEORGE Moran. Belongings list endorsed to receiving RN
--- NOTE | 2018-10-30 11:55 | NUR ---
NURSE NOTES: received pt from ED by annalise. place pt in monitor bed. desk monitor applied. pt is RA, no respiratory distress. pt is alert and oriented. belongings checked with ED Nurse. family at the bedside. will admit to telemetry standard level of care.
[2018-10-30 12:00] VITALS: BP 156/85
[2018-10-30] MEDS ORDERED: Albuterol/Ipratropium 3ml neb HHN PRN (12:30)
[2018-10-30] MEDS ORDERED: Miralax 17gm pkt ORAL PRN (12:30)
--- NOTE | 2018-10-30 12:30 | NUR ---
NURSE NOTES: Dr. Ambriz at the bed side. discussing plan of care with pt and family.
--- NOTE | 2018-10-30 13:29 | Consultation ---
History of Present Illness General Chief Complaint: Edema Present Illness Allergies: Coded Allergies: No Known Allergies (Unverified , 02/27/18) Medication History Scheduled Amlodipine Besylate* (Amlodipine Besylate*), 10 MG ORAL DAILY, (Reported) Aspirin* (Aspirin*), 81 MG ORAL DAILY, (Reported) Atenolol* (Tenormin*), 50 MG ORAL DAILY, (Reported) Ceftriaxone Sodium (Ceftriaxone), 2 GM IV DAILY, (Reported) Cyanocobalamin (Vitamin B-12) (B-12), 1,000 MCG PO DAILY, (Reported) Cyclobenzaprine Hcl (Cyclobenzaprine Hcl), 5 MG ORAL THREE TIMES A DAY, ( Reported) Folic Acid* (Folic Acid*), 1 MG ORAL DAILY, (Reported) Glipizide (Glipizide), 20 MG PO BID, (Reported) Hydrochlorothiazide* (Hydrochlorothiazide*), 12.5 MG ORAL DAILY, (Reported) Insulin Aspart (Novolog), SUBQ SLIDING SCALE, (Reported) Levothyroxine Sodium* (Levothyroxine Sodium*), 125 MCG ORAL DAILY, (Reported) Linagliptin (Tradjenta), 5 MG PO DAILY, (Reported) Multivitamin With Minerals (Multivitamins With Minerals*), 1 TAB ORAL DAILY, ( Reported) Pantoprazole* (Pantoprazole*), 40 MG ORAL ACBREAKFAST, (Reported) Vancomycin Hcl (Vancomycin Hcl), 500 MG IV DAILY, (Reported) Scheduled PRN Diphenhydramine Hcl* (Diphenhydramine Hcl*), 25 MG ORAL Q6H PRN for Itching, ( Reported) Ondansetron* (Zofran*), 4 MG ORAL Q6H PRN for Nausea & Vomiting, (Reported) Tramadol Hcl* (Ultram*), 50 MG ORAL Q6H PRN for For Pain, (Reported) Discontinued Medications Multivitamins* (Multivitamins*), 1 TAB ORAL DAILY, (Reported) Discontinued Reason: Prescription changed Sitagliptin (Januvia), 50 MG ORAL ACBREAKFAST Discontinued Reason: Therapy completed Patient History Healthcare decision maker Resuscitation status Advanced Directive on File Physical Exam Last 24 Hour Vital Signs Date Time Temp Pulse Resp B/P (MAP) Pulse Ox O2 Delivery O2 Flow Rate FiO2 10/30/18 11:50 98.4 58 20 191/58 99 Room Air 10/30/18 10:53 67 20 203/63 98 10/30/18 09:14 64 19 207/71 99 Room Air 10/30/18 08:50 201/49 10/30/18 08:10 98.4 64 18 201/41 96 Room Air 10/30/18 08:10 64 20 10/30/18 07:57 98.4 64 18 168/80 (109) 96 Room Air Laboratory Tests Test 10/30/18 08:19 White Blood Count 9.9 K/UL (4.8-10.8) Red Blood Count 3.75 M/UL (4.20-5.40) L Hemoglobin 8.8 G/DL (12.0-16.0) L Hematocrit 29.6 % (37.0-47.0) L Mean Corpuscular Volume 79 FL (80-99) L Mean Corpuscular Hemoglobin 23.4 PG (27.0-31.0) L Mean Corpuscular Hemoglobin Concent 29.6 G/DL (32.0-36.0) L Red Cell Distribution Width 17.4 % (11.6-14.8) H Platelet Count 197 K/UL (150-450) Mean Platelet Volume 8.5 FL (6.5-10.1) Neutrophils (%) (Auto) 61.5 % (45.0-75.0) Lymphocytes (%) (Auto) 22.3 % (20.0-45.0) Monocytes (%) (Auto) 11.4 % (1.0-10.0) H Eosinophils (%) (Auto) 3.2 % (0.0-3.0) H Basophils (%) (Auto) 1.6 % (0.0-2.0) Prothrombin Time 10.4 SEC (9.30-11.50) Prothromb Time International Ratio 1.0 (0.9-1.1) Activated Partial Thromboplast Time 28 SEC (23-33) Sodium Level 144 MMOL/L (136-145) Potassium Level 4.7 MMOL/L (3.5-5.1) Chloride Level 112 MMOL/L (98-107) H Carbon Dioxide Level 27 MMOL/L (21-32) Anion Gap 5 mmol/L (5-15) Blood Urea Nitrogen 35 mg/dL (7-18) H Creatinine 2.0 MG/DL (0.55-1.30) H Estimat Glomerular Filtration Rate mL/min (>60) Glucose Level 81 MG/DL (74-106) Calcium Level 8.6 MG/DL (8.5-10.1) Total Bilirubin 0.3 MG/DL (0.2-1.0) Aspartate Amino Transf (AST/SGOT) 38 U/L (15-37) H Alanine Aminotransferase (ALT/SGPT) 65 U/L (12-78) Alkaline Phosphatase 248 U/L (46-116) H Total Creatine Kinase 67 U/L (26-308) Creatine Kinase MB 2.2 NG/ML (0.0-3.6) Creatine Kinase MB Relative Index 3.2 Troponin I 0.000 ng/mL (0.000-0.056) Pro-B-Type Natriuretic Peptide 2633 pg/mL (0-125) H Total Protein 6.8 G/DL (6.4-8.2) Albumin 2.4 G/DL (3.4-5.0) L Globulin 4.4 g/dL Albumin/Globulin Ratio 0.5 (1.0-2.7) L Microbiology Date/Time Source Procedure Growth Status 10/30/18 09:00 Rectum Received Height (Feet): 5 Height (Inches): 5.00 Weight (Pounds): 245 Medications Current Medications Medications (Trade) Dose Ordered Sig/Alfonso Route PRN Reason Start Time Stop Time Status Last Admin Dose Admin Acetaminophen (Tylenol) 650 mg Q4H PRN ORAL Fever 10/30/18 12:30 11/29/18 12:29 Albuterol/ Ipratropium (Albuterol/ Ipratropium) 3 ml EVERY 4 HOURS PRN HHN Shortness of Breath 10/30/18 12:30 11/04/18 12:29 Amlodipine Besylate (Norvasc) 10 mg DAILY ORAL 10/31/18 09:00 11/30/18 08:59 Dextrose (Dextrose 50%) 25 ml Q30M PRN IV Hypoglycemia 10/30/18 12:30 11/29/18 12:29 Dextrose (Dextrose 50%) 50 ml Q30M PRN IV Hypoglycemia 10/30/18 12:30 11/29/18 12:29 Furosemide (Lasix) 40 mg EVERY 8 HOURS IV 10/30/18 14:00 11/29/18 13:59 Heparin Sodium (Porcine) (Heparin 5000 units/ml) 5,000 units EVERY 12 HOURS SUBQ 10/30/18 21:00 11/29/18 20:59 Insulin Aspart (NovoLOG) BEFORE MEALS AND HS SUBQ 10/30/18 16:30 11/29/18 16:29 Levothyroxine Sodium (Synthroid) 125 mcg ACBREAKFAST ORAL 10/31/18 06:30 11/30/18 06:29 Ondansetron HCl (Zofran) 4 mg Q6H PRN IVP Nausea & Vomiting 10/30/18 12:30 11/29/18 12:29 Ondansetron HCl (Zofran) 4 mg Q6H PRN ORAL Nausea & Vomiting 10/30/18 12:30 11/29/18 12:29 Polyethylene Glycol (Miralax) 17 gm DAILYPRN PRN ORAL Constipation 10/30/18 12:30 11/29/18 12:29 Sitagliptin Phosphate (Januvia) 50 mg ACBREAKFAST ORAL 10/31/18 06:30 11/30/18 06:29 Temazepam (Restoril) 15 mg HSPRN PRN ORAL Insomnia 10/30/18 12:30 11/06/18 12:29 Assessment/Plan Problem List: (1) Pulmonary edema cardiac cause ICD Codes: I50.1 - Left ventricular failure, unspecified SNOMED: 75176465, 94829691 (2) Cardiomegaly ICD Codes: I51.7 - Cardiomegaly SNOMED: 7590780, 02929207 (3) Anemia ICD Codes: D64.9 - Anemia SNOMED: 603311587 (4) Diabetes mellitus, type II ICD Codes: E11.9 - Type 2 diabetes mellitus without complications SNOMED: 79328981 (5) Diabetes mellitus ICD Codes: E11.9 - Type 2 diabetes mellitus without complications SNOMED: 29616185 (6) HTN (hypertension) ICD Codes: I10 - HTN (hypertension) SNOMED: 99918674 Assessment/Plan: telemetry monitoring iv lasix f/u bnp and CXR venous doppler of legs watch intake and output. f/ electrolytes. Dong Ambriz MD Oct 30, 2018 13:29
--- NOTE | 2018-10-30 15:00 | NUR ---
NURSE NOTES: skin assessment done, multiple skin dryness noted bilateral lower extremities. no pressure ulcer noted. vitamin A& D applied to dry skin.
[2018-10-30 16:00] VITALS: BP 192/70
[2018-10-30] MEDS: NovoLOG Insulin Flexpen SUBQ SCH ×2 (16:30→20:28)
--- NOTE | 2018-10-30 18:21 | History & Physical ---
History and Physical History & Physicial Dictated for Int Med-Dr Blancas no. [id number]. Jony Cardona MD Oct 30, 2018 18:21
--- NOTE | 2018-10-30 18:39 | Cardiology Report ---
APPROVED REPORT EXAM: Two-dimensional and M-mode echocardiogram with Doppler and color Doppler. INDICATION Left ventricular function M-Mode DIMENSIONS IVSd1.2 (0.7-1.1cm)Left Atrium (MM)4.0 (1.6-4.0cm) LVDd4.5 (3.5-5.6cm)Aortic Root2.5 (2.0-3.7cm) PWd0.9 (0.7-1.1cm)Aortic Cusp Exc.1.5 (1.5-2.0cm) IVSs2.0 cm LVDs2.3 (2.5-4.0cm) PWs1.2 cm Normal left ventricular chamber size, systolic function and wall motion. Left ventricular ejection fraction estimated to be 70-75 %. Mild left ventricular hypertrophy by 2-D. Large pleural effusion. All other cardiac chamber sizes are within normal limits. Focal aortic valve sclerosis with adequate cusp excursion. Thickened mitral valve leaflets with normal excursion. Mitral annulus and aortic root calcification. Pulmonic valve not well visualized. Normal tricuspid valve structure. IVC dilated at 2.3 cm without physiologic collapse suggestive of increased RA pressure. A color flow and spectral Doppler study was performed and revealed: No aortic regurgitation. Mild mitral regurgitation. Mitral diastolic velocities suggest reduced left ventricular relaxation c/w mild LV diastolic dysfunction (Grade I ). Mild tricuspid regurgitation. Tricuspid systolic velocities suggests peak right ventricular systolic pressure of 20 mmHg however this is an underestimation of the pasp due to lack of adequate TR velocity profile
[2018-10-30] MEDS ORDERED: MULTIVITAMINS1 EAC8 ORAL (19:09)
[2018-10-30] MEDS ORDERED: HYDROCHLOROTH12.5 MG ORAL (19:09)
[2018-10-30] MEDS ORDERED: NOVOLOG100 UNIT/5 SUBQ (19:09)
[2018-10-30] MEDS ORDERED: ASPIRIN81 MG ORAL (19:09)
[2018-10-30] MEDS ORDERED: VANCOMYCIN HCL500 MG IV (19:09)
[2018-10-30] MEDS ORDERED: TRADJENTA5 MG PO (19:09)
[2018-10-30] MEDS ORDERED: CEFTRIAXONE2 G1 IV (19:09)
--- NOTE | 2018-10-30 19:15 | NUR ---
NURSE NOTES: Received report from Victoria RN, pt. in bed awake, A/O x's4- able to make needs known, Son at bedside, no signs or symptoms of acute cardiac or respiratory distress noted, bed in lowest position and call light within easy reach, bed alarm on, side rails up x's2 and safety brakes engaged, pt. appears to be resting comfortably and appears to be clean and dry, pt. appears to be sating well on RA- no distress noted, PASQUALE PICC -IV intact and patent, per endorsement pt. is ambulating steady to bathroom, safety measures continued, will continue with plan of care.
--- NOTE | 2018-10-30 19:20 | NUR ---
HAND-OFF: Report given to Vashti Tan Rn.
[2018-10-30 20:00] VITALS: BP 148/82
[2018-10-30] MEDS: Heparin 5000 units/ml inj SUBQ SCH (20:28)
--- NOTE | 2018-10-30 22:00 | History and Physical Report ---
DATE OF ADMISSION: 10/30/2018 CHIEF COMPLAINT: The patient is a 73-year-old female, who presents with a chief complaint of swelling of the bilateral lower extremities. HISTORY OF PRESENT ILLNESS: The patient was admitted to [facility] from October 05, 2018 to October 13, 2018. The patient was diagnosed with osteomyelitis of the left foot and sepsis. The patient was discharged to [facility] on intravenous vancomycin and ceftriaxone. The patient presented to [facility] emergency room on October 30, 2018 complaining of bilateral lower extremity swelling. The patient states her left arm was also swollen. The patient was found to have anasarca in the emergency room. The patient is admitted with anasarca. REVIEW OF SYSTEMS: CONSTITUTIONAL: The patient denies weight loss or weight gain. The patient denies fevers or chills. HEENT: The patient denies ear or throat pain. The patient denies headache. CARDIOVASCULAR: The patient denies palpitations or chest pain. CHEST: The patient denies wheeze or shortness of breath. ABDOMINAL: The patient denies nausea, vomiting, diarrhea, or constipation. GENITOURINARY: The patient denies dysuria or increased frequency of urination. NEUROMUSCULAR: The patient complains of generalized swelling as above. The patient denies seizures or generalized weakness. PAST MEDICAL HISTORY: Significant for: 1. Type 2 diabetes. 2. Hypertension. 3. Osteomyelitis of the left foot as above. 4. Chronic kidney disease. 5. Obesity. PAST SURGICAL HISTORY: Significant for right foot surgery. CURRENT MEDICATIONS: 1. Vancomycin 500 mg intravenously q.24 hours. 2. Ceftriaxone 1 gram intravenously daily. 3. Amlodipine 10 mg p.o. daily. 4. Aspirin 81 mg p.o. daily. 5. Atenolol 50 mg p.o. daily. 6. Cyanocobalamin 1000 mcg p.o. daily. 7. Cyclobenzaprine 5 mg p.o. 3 times daily. 8. Diphenhydramine 25 mg p.o. q.6 hours p.r.n. 9. Folic acid 1 mg p.o. daily. 10. Glipizide 20 mg p.o. twice daily. 11. Hydrochlorothiazide 12.5 mg p.o. daily. 12. Aspirin sliding scale. 13. Levoxyl 0.125 mcg p.o. daily. 14. Multivitamin p.o. daily. 15. Protonix 40 mg p.o. daily. 16. Tradjenta 5 mg p.o. daily. 17. Tramadol 50 mg p.o. q.6 hours p.r.n. ALLERGIES: No known drug allergies. SOCIAL HISTORY: The patient is a resident of [facility] as above. The patient is single. The patient denies tobacco or alcohol use. PHYSICAL EXAMINATION: VITAL SIGNS: Temperature 98.4, respirations 18, pulse 64, and blood pressure 168/80. GENERAL: The patient is a well-developed and well-nourished obese female, in no apparent distress. HEENT: Eyes, pupils are equal and responsive to light and accommodation. Extraocular movements are intact. NECK: Supple without lymphadenopathy. CHEST: Lungs are clear to auscultation bilaterally without wheezes or rales. CARDIOVASCULAR: Regular rhythm and rate. S1 and S2 are normal without murmurs, rubs, or gallops. ABDOMEN: Soft, nontender, and nondistended. Positive bowel sounds. No evidence of hepatosplenomegaly. Currently, no rebound or guarding noted. EXTREMITIES: A 3+ pitting edema in bilateral ankles to the knee. Otherwise, without cyanosis. NEUROMUSCULAR: Cranial nerves II through XII are grossly intact without focal deficits. Motor strength is 5/5 bilaterally. Deep tendon reflexes are 2+ plantar. LABORATORY STUDIES: WBC 9.9, hemoglobin 8.8, hematocrit 29.6, and platelets 197,000. Sodium 144, potassium 4.7, chloride 112, CO2 27, BUN 35, creatinine 2.0, and glucose 81. AST elevated at 38 and alkaline phosphatase elevated at 248. Troponin normal at 0.0. BNP elevated 2633. Chest x-ray was reported as consistent with congestive heart failure. ASSESSMENT: This is a 73-year-old female. 1. Anasarca. 2. Congestive heart failure, acute. 3. Osteomyelitis of the left foot. 4. Diabetes type 2. 5. Hypertensive emergency. 6. Chronic renal failure. 7. Obesity. TREATMENT: 1. Congestive heart failure/anasarca. A Cardiology consultation has been obtained with Dr. Talon Jorge. An echocardiogram is pending. We will follow recommendation of Cardiology. 2. Osteomyelitis of the left foot. Continue ceftriaxone and vancomycin as above. 3. Diabetes type 2. A NovoLog sliding scale has been instituted. 4. Hypertensive emergency. The patient has been placed on clonidine TTS 1 patch. Atenolol has been held secondary to bradycardia. We will follow recommendations of Cardiology. 5. Chronic renal failure. 6. Obesity. Jony Cardona M.D. DR: DONNELL JOB#: [id number] CC:
--- NOTE | 2018-10-30 22:26 | NUR ---
NURSE NOTES: left message for DR. Blancas- pt. came in earlier this am with PICC line- left message for doctor to see if line is okay to use and if okay to order CHG- awaiting for call back from doctor.
[2018-10-30] MEDS: Dyna-Hex 2% Top Sol 2oz TOPIC SCH (23:04)
[2018-10-31] VITALS: BP 151/79
[2018-10-31 03:56] VITALS: BP 144/83
[2018-10-31] MEDS: NovoLOG Insulin Flexpen SUBQ SCH ×4 (05:34→22:02)
[2018-10-31] MEDS: sitaGLIPtin 50mg tab ORAL SCH ×2 (05:35→05:51)
[2018-10-31] MEDS: Levothyroxine 125mcg tab ORAL SCH (05:37)
--- NOTE | 2018-10-31 05:51 | NUR ---
NURSE NOTES: Januvia opened and unable to return- wasted as patient refused to take medicine-explained benefits-pt.continued to refuse medicine.
[2018-10-31 06:28] LABS: BASOPHILS % (AUTO) 0.8 % (0.0-2.0); EOSINOPHILS % (AUTO) 3.4 % (0.0-3.0); HEMATOCRIT 27.5 % (37.0-47.0); HEMOGLOBIN 8.1 G/DL (12.0-16.0); LYMPHOCYTES % (AUTO) 18.3 % (20.0-45.0); MEAN CORPUSCULAR VOLUME 80 FL (80-99); MONOCYTES % (AUTO) 13.5 % (1.0-10.0); NEUTROPHILS % (AUTO) 63.9 % (45.0-75.0); PLATELET COUNT 184 K/UL (150-450); RED BLOOD COUNT 3.45 M/UL (4.20-5.40); RED CELL DISTRIBUTION WIDTH 16.2 % (11.6-14.8); WHITE BLOOD COUNT 8.4 K/UL (4.8-10.8)
[2018-10-31 07:00] LABS: ANION GAP 6 mmol/L (5-15); BLOOD UREA NITROGEN 37 mg/dL (7-18); CALCIUM 8.3 MG/DL (8.5-10.1); CARBON DIOXIDE 29 MMOL/L (21-32); CHLORIDE 112 MMOL/L (98-107); POTASSIUM 4.6 MMOL/L (3.5-5.1); SODIUM 147 MMOL/L (136-145)
--- NOTE | 2018-10-31 07:09 | NUR ---
HAND-OFF: Report given to Dinora RN, pt. remains stable and no signs of distress noted.
--- NOTE | 2018-10-31 07:24 | NUR ---
NURSE NOTES: Pt in bed sitting, bed in low position, call light next to pt, pt makes needs known, pt has been admitted several times before and recently got discharged, pt has been resistive and continues this bx, IV intact and asymptomatic, Ox2-3 with periods of confusion, during rounding pt was calm and recognized me, pt was polite and expresses that she wants to go home, pt diet was changed due to admitting diagnosis to include a low sodium diet, no s/s of distress or sob noted. bed alarm on but pt does ambulate to restroom or bedside commode.
[2018-10-31 08:10] VITALS: BP 206/78
--- NOTE | 2018-10-31 08:30 | NUR ---
RADIOLOGY DEPT., PT DECLINED CHEST X-RAY TODAY DUE TO EXAM PERFORMED ON ADMIT(10/30 ) FROM ER.-P.DYE
[2018-10-31] MEDS: Heparin 5000 units/ml inj SUBQ SCH ×2 (08:57→21:00)
--- NOTE | 2018-10-31 10:28 | NUR ---
*-* NO INSURANCE IN THE BAR UNABLE TO SEND CLINICALS OR REVIEWS *-*
--- NOTE | 2018-10-31 11:20 | Internal Med Progress Note ---
Subjective Date of Service: Oct 31, 2018 Physician Name Jony Cardona Attending Physician Cirilo Blancas MD Current Medications Medications (Trade) Dose Ordered Sig/Alfonso Route PRN Reason Start Time Stop Time Status Last Admin Dose Admin Acetaminophen (Tylenol) 650 mg Q4H PRN ORAL Fever 10/30/18 12:30 11/29/18 12:29 Albuterol/ Ipratropium (Albuterol/ Ipratropium) 3 ml EVERY 4 HOURS PRN HHN Shortness of Breath 10/30/18 12:30 11/04/18 12:29 Amlodipine Besylate (Norvasc) 10 mg DAILY ORAL 10/31/18 09:00 11/30/18 08:59 10/31/18 08:52 Chlorhexidine Gluconate (Lorena-Hex 2%) 1 applic DAILY@2000 TOPIC 10/30/18 23:00 11/30/18 19:59 10/30/18 23:04 Clonidine HCl (Catapres TTS-1) 1 patch QWEEK TDERMAL 10/30/18 18:00 11/29/18 17:59 10/30/18 17:58 Clonidine HCl (Catapres Tab) 0.1 mg Q6H PRN ORAL For High Blood Pressure 10/30/18 17:00 11/29/18 16:59 10/31/18 08:53 Dextrose (Dextrose 50%) 25 ml Q30M PRN IV Hypoglycemia 10/30/18 12:30 11/29/18 12:29 Dextrose (Dextrose 50%) 50 ml Q30M PRN IV Hypoglycemia 10/30/18 12:30 11/29/18 12:29 Furosemide (Lasix) 40 mg EVERY 8 HOURS IV 10/30/18 14:00 11/29/18 13:59 10/31/18 05:37 Heparin Sodium (Porcine) (Heparin 5000 units/ml) 5,000 units EVERY 12 HOURS SUBQ 10/30/18 21:00 11/29/18 20:59 10/30/18 20:28 Insulin Aspart (NovoLOG) BEFORE MEALS AND HS SUBQ 10/30/18 16:30 11/29/18 16:29 Levothyroxine Sodium (Synthroid) 125 mcg ACBREAKFAST ORAL 10/31/18 06:30 11/30/18 06:29 10/31/18 05:37 Ondansetron HCl (Zofran) 4 mg Q6H PRN IVP Nausea & Vomiting 10/30/18 12:30 11/29/18 12:29 Ondansetron HCl (Zofran) 4 mg Q6H PRN ORAL Nausea & Vomiting 10/30/18 12:30 11/29/18 12:29 Polyethylene Glycol (Miralax) 17 gm DAILYPRN PRN ORAL Constipation 10/30/18 12:30 11/29/18 12:29 Sitagliptin Phosphate (Januvia) 50 mg ACBREAKFAST ORAL 10/31/18 06:30 11/30/18 06:29 Temazepam (Restoril) 15 mg HSPRN PRN ORAL Insomnia 10/30/18 12:30 11/06/18 12:29 Allergies: Coded Allergies: No Known Allergies (Unverified , 02/27/18) ROS Limited/Unobtainable: No Constitutional: Reports: no symptoms HEENT: Reports: no symptoms Cardiovascular: Reports: no symptoms Respiratory: Reports: no symptoms Gastrointestinal/Abdominal: Reports: no symptoms 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: Reports: no symptoms Subjective 73 YO F admitted with generalized edema. Cover for Int Med-Dr Blancas. Uncontrolled hypertension; Patient refusing meds. "iI want to take my regular medications" Objective Last Vital Signs Date Time Temp Pulse Resp B/P (MAP) Pulse Ox O2 Delivery O2 Flow Rate FiO2 10/31/18 08:53 206/78 10/31/18 08:52 69 10/31/18 08:20 Room Air 10/31/18 08:10 96.4 18 98 10/30/18 19:44 21 Laboratory Tests Test 10/31/18 05:00 White Blood Count 8.4 K/UL (4.8-10.8) Red Blood Count 3.45 M/UL (4.20-5.40) L Hemoglobin 8.1 G/DL (12.0-16.0) L Hematocrit 27.5 % (37.0-47.0) L Mean Corpuscular Volume 80 FL (80-99) Mean Corpuscular Hemoglobin 23.5 PG (27.0-31.0) L Mean Corpuscular Hemoglobin Concent 29.6 G/DL (32.0-36.0) L Red Cell Distribution Width 16.2 % (11.6-14.8) H Platelet Count 184 K/UL (150-450) Mean Platelet Volume 8.2 FL (6.5-10.1) Neutrophils (%) (Auto) 63.9 % (45.0-75.0) Lymphocytes (%) (Auto) 18.3 % (20.0-45.0) L Monocytes (%) (Auto) 13.5 % (1.0-10.0) H Eosinophils (%) (Auto) 3.4 % (0.0-3.0) H Basophils (%) (Auto) 0.8 % (0.0-2.0) Sodium Level 147 MMOL/L (136-145) H Potassium Level 4.6 MMOL/L (3.5-5.1) Chloride Level 112 MMOL/L (98-107) H Carbon Dioxide Level 29 MMOL/L (21-32) Anion Gap 6 mmol/L (5-15) Blood Urea Nitrogen 37 mg/dL (7-18) H Creatinine 2.0 MG/DL (0.55-1.30) H Estimat Glomerular Filtration Rate mL/min (>60) Glucose Level 58 MG/DL (74-106) L Calcium Level 8.3 MG/DL (8.5-10.1) L Troponin I 0.009 ng/mL (0.000-0.056) Pro-B-Type Natriuretic Peptide 3089 pg/mL (0-125) H Thyroid Stimulating Hormone (TSH) 4.065 uiU/mL (0.358-3.740) Free Thyroxine 1.20 NG/DL (0.76-1.46) Triiodothyonine (T3) Pending Triiodothyronine (T3) Uptake Pending Microbiology Date/Time Source Procedure Growth Status 10/30/18 09:00 Rectum Received Intake and Output 10/30/18 10/31/18 19:00 07:00 Intake Total 140 ml Output Total 300 ml Balance -160 ml Intake Oral 140 ml Output Urine Total 300 ml # Voids 11 2 Objective PHYSICAL EXAMINATION: GENERAL: The patient is a well-developed and well-nourished obese female, in no apparent distress. HEENT: Eyes, pupils are equal and responsive to light and accommodation. Extraocular movements are intact. NECK: Supple without lymphadenopathy. CHEST: Lungs are clear to auscultation bilaterally without wheezes or rales. CARDIOVASCULAR: Regular rhythm and rate. S1 and S2 are normal without murmurs, rubs, or gallops. ABDOMEN: Soft, nontender, and nondistended. Positive bowel sounds. No evidence of hepatosplenomegaly. Currently, no rebound or guarding noted. EXTREMITIES: A 3+ pitting edema in bilateral ankles to the knee. Otherwise, without cyanosis. NEUROMUSCULAR: Cranial nerves II through XII are grossly intact without focal deficits. Motor strength is 5/5 bilaterally. Deep tendon reflexes are 2+ plantar. Assessment/Plan Assessment/Plan ASSESSMENT: This is a 73-year-old female. 1. Anasarca. 2. Congestive heart failure, acute. 3. Osteomyelitis of the left foot. 4. Diabetes type 2. 5. Hypertensive emergency. 6. Chronic renal failure. 7. Obesity. 8. Hypothyroidism TREATMENT: 1. Congestive heart failure/anasarca. A Cardiology consultation has been obtained with Dr. Talon Jorge. Echocardiogram LVEF=60-65%. We will follow recommendation of Cardiology. 2. Osteomyelitis of the left foot. Continue ceftriaxone and vancomycin as above. 3. Diabetes type 2. A NovoLog sliding scale has been instituted. 4. Hypertensive emergency. The patient has been placed on clonidine TTS 1 patch. Atenolol has been held secondary to bradycardia. We will follow recommendations of Cardiology. 5. Chronic renal failure. 6. Obesity. 7. Await thyroid function test results. Jony Cardona MD Oct 31, 2018 11:20
--- NOTE | 2018-10-31 12:41 | Pulmonology Progress Note ---
Assessment/Plan Problems: (1) Pulmonary edema cardiac cause (2) Cardiomegaly (3) Anemia (4) Diabetes mellitus, type II (5) Diabetes mellitus (6) HTN (hypertension) Assessment/Plan telemetry monitoring iv lasix f/u bnp and CXR venous doppler of legs watch intake and output. f/ electrolytes. Subjective ROS Limited/Unobtainable: No Constitutional: Reports: no symptoms HEENT: Repors: no symptoms Allergies: Coded Allergies: No Known Allergies (Unverified , 02/27/18) Objective Last 24 Hour Vital Signs Date Time Temp Pulse Resp B/P (MAP) Pulse Ox O2 Delivery O2 Flow Rate FiO2 10/31/18 08:53 206/78 10/31/18 08:52 69 206/78 10/31/18 08:20 Room Air 10/31/18 08:10 96.4 69 18 206/78 (120) 98 10/31/18 07:58 63 10/31/18 04:00 79 10/31/18 03:56 98.4 79 18 144/83 (103) 96 10/31/18 00:00 97.0 70 18 151/79 (103) 96 10/31/18 00:00 62 10/30/18 21:00 Room Air 10/30/18 20:00 98.6 72 18 148/82 (104) 98 10/30/18 20:00 73 10/30/18 19:44 51 18 98 Room Air 21 10/30/18 17:58 192/70 10/30/18 16:00 98.6 51 18 192/70 (110) 98 10/30/18 15:41 51 10/30/18 14:55 Room Air Intake and Output 10/30/18 10/31/18 19:00 07:00 Intake Total 140 ml Output Total 300 ml Balance -160 ml Intake Oral 140 ml Output Urine Total 300 ml # Voids 11 2 General Appearance: WD/WN HEENT: normocephalic Respiratory/Chest: chest wall non-tender Cardiovascular: normal peripheral pulses, regular rhythm, no JVD Abdomen: normal bowel sounds, soft, non tender, no organomegaly 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: hand scudder 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 normal, no motor/sensory deficits Microbiology Date/Time Source Procedure Growth Status 10/30/18 09:00 Rectum Received Laboratory Tests 10/31/18 05:00: White Blood Count 8.4, Red Blood Count 3.45L, Hemoglobin 8.1L, Hematocrit 27.5L , Mean Corpuscular Volume 80, Mean Corpuscular Hemoglobin 23.5L, Mean Corpuscular Hemoglobin Concent 29.6L, Red Cell Distribution Width 16.2H, Platelet Count 184, Mean Platelet Volume 8.2, Neutrophils (%) (Auto) 63.9, Lymphocytes (%) (Auto) 18.3L, Monocytes (%) (Auto) 13.5H, Eosinophils (%) (Auto ) 3.4H, Basophils (%) (Auto) 0.8, Sodium Level 147H, Potassium Level 4.6, Chloride Level 112H, Carbon Dioxide Level 29, Anion Gap 6, Blood Urea Nitrogen 37H, Creatinine 2.0H, Estimat Glomerular Filtration Rate , Glucose Level 58L, Calcium Level 8.3L, Troponin I 0.009, Pro-B-Type Natriuretic Peptide 3089H, Thyroid Stimulating Hormone (TSH) 4.065H, Free Thyroxine 1.20, Triiodothyonine ( T3) [Pending], Triiodothyronine (T3) Uptake [Pending] Current Medications Medications (Trade) Dose Ordered Sig/Alfonso Route PRN Reason Start Time Stop Time Status Last Admin Dose Admin Acetaminophen (Tylenol) 650 mg Q4H PRN ORAL Fever 10/30/18 12:30 11/29/18 12:29 Albuterol/ Ipratropium (Albuterol/ Ipratropium) 3 ml EVERY 4 HOURS PRN HHN Shortness of Breath 10/30/18 12:30 11/04/18 12:29 Amlodipine Besylate (Norvasc) 10 mg DAILY ORAL 10/31/18 09:00 11/30/18 08:59 10/31/18 08:52 Chlorhexidine Gluconate (Lorena-Hex 2%) 1 applic DAILY@2000 TOPIC 10/30/18 23:00 11/30/18 19:59 10/30/18 23:04 Clonidine HCl (Catapres TTS-1) 1 patch QWEEK TDERMAL 10/30/18 18:00 11/29/18 17:59 10/30/18 17:58 Clonidine HCl (Catapres Tab) 0.1 mg Q6H PRN ORAL For High Blood Pressure 10/30/18 17:00 11/29/18 16:59 10/31/18 08:53 Dextrose (Dextrose 50%) 25 ml Q30M PRN IV Hypoglycemia 10/30/18 12:30 11/29/18 12:29 Dextrose (Dextrose 50%) 50 ml Q30M PRN IV Hypoglycemia 10/30/18 12:30 11/29/18 12:29 Furosemide (Lasix) 40 mg EVERY 8 HOURS IV 10/30/18 14:00 11/29/18 13:59 10/31/18 05:37 Heparin Sodium (Porcine) (Heparin 5000 units/ml) 5,000 units EVERY 12 HOURS SUBQ 10/30/18 21:00 11/29/18 20:59 10/30/18 20:28 Insulin Aspart (NovoLOG) BEFORE MEALS AND HS SUBQ 10/30/18 16:30 11/29/18 16:29 Levothyroxine Sodium (Synthroid) 125 mcg ACBREAKFAST ORAL 10/31/18 06:30 11/30/18 06:29 10/31/18 05:37 Ondansetron HCl (Zofran) 4 mg Q6H PRN IVP Nausea & Vomiting 10/30/18 12:30 11/29/18 12:29 Ondansetron HCl (Zofran) 4 mg Q6H PRN ORAL Nausea & Vomiting 10/30/18 12:30 11/29/18 12:29 Polyethylene Glycol (Miralax) 17 gm DAILYPRN PRN ORAL Constipation 10/30/18 12:30 11/29/18 12:29 Sitagliptin Phosphate (Januvia) 50 mg ACBREAKFAST ORAL 10/31/18 06:30 11/30/18 06:29 Temazepam (Restoril) 15 mg HSPRN PRN ORAL Insomnia 10/30/18 12:30 11/06/18 12:29 Dong Ambriz MD Oct 31, 2018 12:41
[2018-10-31 13:00] VITALS: BP 170/80
[2018-10-31 13:16] LABS: CREATINE KINASE 81 U/L (26-308)
--- NOTE | 2018-10-31 13:40 | Diagnostic Imaging Report ---
APPROVED REPORT CPT Code: 39723 Present Symptoms Comments: BILATERAL LEGS PAIN. BILATERAL: Imaging reveals a patent deep venous system bilaterally. There is no evidence of thrombus within the femoral, popliteal or tibial segments. The greater saphenous veins are also within normal limits. Doppler indicates normal spontaneous flow within these segments.
[2018-10-31 16:40] VITALS: BP 196/84
--- NOTE | 2018-10-31 17:37 | NUR ---
Staff AnesthesiologistClinical Data Management Director 73 Y/O Female BIBA from [facility] Conv CC: Generalized Edema x 3days SI: Pulmonary Edema VS: BP:207/71 HR:64 RR:19 O2 Sat:99% (RA) T:98.4 NT-proBNP:2633 Alk Phos:248 BUN:35 Creatinine:2.0 Hgb-8.8 Hct:29.6 CXR: CHF/PICC line (POA) Venous Duplex Left Arm (-)/Venous Duplex BLE (-) IS:Clonidine Hcl 0.1mg PO Lasix IV Admitted to Telemetry @ 1150 Telemetry Status DCP: Pending Hospital Stay
--- NOTE | 2018-10-31 18:25 | Cardiology Report ---
APPROVED REPORT EKG Measurement Heart [id number] Normal sinus rhythm Normal ECG
--- NOTE | 2018-10-31 19:15 | NUR ---
NURSE NOTES: Report received from GEORGE Garcia, patient in stable condition, AOx3, PICC line on R upper arm, patent, asymptomatic, intact, family at bed side, bed lowest position, call light within reach, will continue to monitor and reassess.
--- NOTE | 2018-10-31 19:23 | NUR ---
HAND-OFF: Report given to Leela Graves.
[2018-10-31 20:00] VITALS: BP 133/63
[2018-10-31] MEDS ORDERED: Dyna-Hex 2% Top Sol 2oz TOPIC SCH (20:00)
--- NOTE | 2018-10-31 21:33 | Cardiology Progress Note ---
Assessment/Plan Assessment/Plan sig edema and ivc dialtion suggestiv eof increaed RA pressure , however echo to the extent visualized nto seem to show sig RV enlargment and or hypokineis there does not seem to be any tricuspid stenosis to explaind , and cannot effectively estimate pasp as poor TR velicity profile woudl consider v/q and consider at least non contraast ct of the chest [id number] echo 09/2018 showed dilated ivc but not in 2018 echo report Objective Last 24 Hour Vital Signs Date Time Temp Pulse Resp B/P (MAP) Pulse Ox O2 Delivery O2 Flow Rate FiO2 10/31/18 20:22 78 18 98 Room Air 21 10/31/18 16:40 98.2 70 18 196/84 (121) 98 10/31/18 15:11 72 10/31/18 13:00 98.6 69 20 170/80 (110) 97 10/31/18 11:52 59 10/31/18 08:53 206/78 10/31/18 08:52 69 206/78 10/31/18 08:20 Room Air 10/31/18 08:10 96.4 69 18 206/78 (120) 98 10/31/18 07:58 63 10/31/18 04:00 79 10/31/18 03:56 98.4 79 18 144/83 (103) 96 10/31/18 00:00 97.0 70 18 151/79 (103) 96 10/31/18 00:00 62 Intake and Output 10/30/18 10/31/18 18:59 06:59 Intake Total 140 ml Output Total 300 ml Balance -160 ml Intake Oral 140 ml Output Urine Total 300 ml # Voids 11 2 Laboratory Tests Test 10/31/18 05:00 White Blood Count 8.4 K/UL (4.8-10.8) Red Blood Count 3.45 M/UL (4.20-5.40) L Hemoglobin 8.1 G/DL (12.0-16.0) L Hematocrit 27.5 % (37.0-47.0) L Mean Corpuscular Volume 80 FL (80-99) Mean Corpuscular Hemoglobin 23.5 PG (27.0-31.0) L Mean Corpuscular Hemoglobin Concent 29.6 G/DL (32.0-36.0) L Red Cell Distribution Width 16.2 % (11.6-14.8) H Platelet Count 184 K/UL (150-450) Mean Platelet Volume 8.2 FL (6.5-10.1) Neutrophils (%) (Auto) 63.9 % (45.0-75.0) Lymphocytes (%) (Auto) 18.3 % (20.0-45.0) L Monocytes (%) (Auto) 13.5 % (1.0-10.0) H Eosinophils (%) (Auto) 3.4 % (0.0-3.0) H Basophils (%) (Auto) 0.8 % (0.0-2.0) Sodium Level 147 MMOL/L (136-145) H Potassium Level 4.6 MMOL/L (3.5-5.1) Chloride Level 112 MMOL/L (98-107) H Carbon Dioxide Level 29 MMOL/L (21-32) Anion Gap 6 mmol/L (5-15) Blood Urea Nitrogen 37 mg/dL (7-18) H Creatinine 2.0 MG/DL (0.55-1.30) H Estimat Glomerular Filtration Rate mL/min (>60) Glucose Level 58 MG/DL (74-106) L Uric Acid 6.5 MG/DL (2.6-7.2) Calcium Level 8.3 MG/DL (8.5-10.1) L Total Creatine Kinase 81 U/L (26-308) Troponin I 0.009 ng/mL (0.000-0.056) Pro-B-Type Natriuretic Peptide 3089 pg/mL (0-125) H Thyroid Stimulating Hormone (TSH) 4.065 uiU/mL (0.358-3.740) Free Thyroxine 1.20 NG/DL (0.76-1.46) Triiodothyonine (T3) Pending Triiodothyronine (T3) Uptake Pending Microbiology Date/Time Source Procedure Growth Status 10/30/18 09:00 Rectum Received Marcos Mendes MD Oct 31, 2018 21:33
[2018-10-31] MEDS: Dyna-Hex 2% Top Sol 2oz TOPIC SCH (21:57)
[2018-11-01] VITALS (7 sets, daily range): BP systolic 140–166; BP diastolic 48–85
--- NOTE | 2018-11-01 01:30 | Consultation ---
DATE OF CONSULTATION: 10/31/2018 CARDIOLOGY CONSULTATION CONSULTING PHYSICIAN: Marcos Mendes M.D. REFERRING PHYSICIANS: 1. Cirilo Blancas M.D. 2. Dong Ambriz M.D. REASON FOR REFERRAL: Leg edema. HISTORY OF PRESENT ILLNESS: This is a 73-year-old, female. Unfortunately, I am not able to obtain much in terms of the information from her directly as she is somewhat sleepy, but on questioning, the patient denies any chest pain or shortness of breath. There is no PND or orthopnea. No palpitations. The rest of the history is somewhat lacking because she literally did not want to answer questions at this time and therefore obtained from the review of the patient's chart for which she was hospitalized here on several occasions. The patient's chart indicates that she does have a history of osteomyelitis, sepsis secondary to acute bronchitis and early bronchial pneumonia, bilateral lower extremity chronic venous stasis lower extremity cellulitis, diabetic foot ulcer, acute kidney failure, diabetes mellitus out of control, systemic hypertension, anemia, obesity, diabetic neuropathy, toxic metabolic encephalopathy, bacteremia. ALLERGIES: She is reportedly not allergic to any medications. SOCIAL HISTORY: No smoking. No alcoholic beverages are known. REVIEW OF SYSTEMS: Unable to obtain. PHYSICAL EXAMINATION: GENERAL: Shows an elderly female, in no respiratory distress. NECK: Supple. No jugular venous distention. LUNGS: Clear to auscultation. CARDIAC: Regular rate and rhythm. No heaves or thrills noted. ABDOMEN: Soft, nontender. Positive bowel sounds. EXTREMITIES: There is no clubbing, cyanosis, or edema. NEUROLOGICAL: She is sleepy and does respond, but is somewhat hesitant to do so. LABORATORY AND DIAGNOSTIC DATA: White count of 8.4, hemoglobin is 8.1, and platelet count of 184. ProBNP is 3089. Troponin 0.09. Sodium 147, potassium 4.6, chloride 112, bicarb 29, BUN of 37, creatinine 2.0, and glucose of 58. Her creatinine has been as low as 1.2 in September and as high as 2 at the present time. INR is 1.0 and PTT of 28. A chest x-ray that was performed shows pulmonary vascular congestion, heart right-sided PICC line. The tip is over the SVC consistent with congestive heart failure. Echocardiogram was performed showing ejection fraction 70 to 75%. Large pleural effusion is noted. There is diastolic dysfunction. Pulmonary artery systolic pressure could not be measured; however, the IVC was dilated suggestive of increased right atrial pressure. Her prior echocardiograms back in 2017 have shown normal left ventricular systolic function and IVC was reportedly abnormal size back in 2017, but in September of 2018, the IVC was already dilated suggestive of right atrial pressure even at that time. Venous duplex is performed. No evidence of thrombus being documented. The patient's electrocardiogram shows normal sinus rhythm, normal QRS axis, no ST or T wave changes. It should be noted that on the echocardiogram, the right ventricle appears to be functioning and not significantly enlarged on the available views that could suggest a right ventricular problem. ASSESSMENT AND PLAN: 1. Severe peripheral edema. 2. Dilated IVC suggestive of increased right atrial pressure without dilatation of the ventricle. 3. Morbid obesity. 4. Diabetes mellitus. 5. Recent osteomyelitis. 6. Acute on chronic renal insufficiency. 7. Anemia. 8. Obesity. This patient was seen in cardiac consultation. The patient's left ventricular systolic function appears to be adequate. The RV is poorly visualized, but does not appear to be enlarged. The pulmonary artery systolic pressure could not be estimated because there was no significant TR velocity profile to evaluate; however, it will be unlikely that she had right ventricular enlargement failure based on the RV function on the echocardiogram. Nevertheless because the IVC is so dilated, I would recommend consideration for a V/Q scan and possibly CT scan of the chest if not previously performed although contrast can be administered because of renal insufficiency maybe evaluation with a V/Q scan and other abnormalities to evaluate the heart and lungs maybe in order. Marcos Mendes M.D. DR: SHARIF JOB#: [id number] CC:
[2018-11-01] MEDS: NovoLOG Insulin Flexpen SUBQ SCH ×4 (06:27→20:36)
[2018-11-01] MEDS: Levothyroxine 125mcg tab ORAL SCH (06:31)
[2018-11-01] MEDS: sitaGLIPtin 50mg tab ORAL SCH (06:31)
--- NOTE | 2018-11-01 07:10 | NUR ---
NURSE NOTES: Report given to GEORGE Humphreys, patient in stable condition, plan of care endorsed
[2018-11-01 07:28] LABS: BASOPHILS % (AUTO) 1.6 % (0.0-2.0); EOSINOPHILS % (AUTO) 3.3 % (0.0-3.0); HEMATOCRIT 27.9 % (37.0-47.0); HEMOGLOBIN 8.4 G/DL (12.0-16.0); LYMPHOCYTES % (AUTO) 23.9 % (20.0-45.0); MEAN CORPUSCULAR VOLUME 79 FL (80-99); MONOCYTES % (AUTO) 12.3 % (1.0-10.0); NEUTROPHILS % (AUTO) 58.9 % (45.0-75.0); PLATELET COUNT 184 K/UL (150-450); RED BLOOD COUNT 3.52 M/UL (4.20-5.40); RED CELL DISTRIBUTION WIDTH 16.3 % (11.6-14.8); WHITE BLOOD COUNT 8.1 K/UL (4.8-10.8)
--- NOTE | 2018-11-01 07:42 | NUR ---
NURSE NOTES: Received patient from Ely Swenson. PAtient awake and alert sitting up in bed. No c/o of pain or discomfort. Safety precautions in place. call joya within patients reach. Will follow.
[2018-11-01 07:55] LABS: LACTATE DEHYDROGENASE 226 U/L (81-234); PHOSPHORUS 4.2 MG/DL (2.5-4.9)
[2018-11-01 07:56] LABS: % IRON SATURATION 13 % (15-50); IRON 31 ug/dL (50-175); TOTAL IRON BINDING CAPACITY 238 ug/dL (250-450)
[2018-11-01 07:58] LABS: ALANINE AMINOTRANSFERASE 43 U/L (12-78); ALBUMIN 2.5 G/DL (3.4-5.0); ALBUMIN/GLOBULIN RATIO 0.7 (1.0-2.7); ALKALINE PHOSPHATASE 203 U/L (46-116); ANION GAP 6 mmol/L (5-15); ASPARTATE AMINO TRANSFERASE 25 U/L (15-37); BILIRUBIN,TOTAL 0.5 MG/DL (0.2-1.0); BLOOD UREA NITROGEN 37 mg/dL (7-18); CALCIUM 8.8 MG/DL (8.5-10.1); CARBON DIOXIDE 30 MMOL/L (21-32); CHLORIDE 108 MMOL/L (98-107); CREATININE 2.1 MG/DL (0.55-1.30); SODIUM 144 MMOL/L (136-145)
--- NOTE | 2018-11-01 09:03 | NUR ---
RADIOLOGY DEPT., CHEST X-RAY DONE.-P.DYE
[2018-11-01] MEDS: Heparin 5000 units/ml inj SUBQ SCH ×2 (09:27→20:39)
--- NOTE | 2018-11-01 10:28 | Cardiac Electrophysiology PN ---
Subjective Subjective [id number] Dr Palacios and patients RN Objective Last 24 Hour Vital Signs Date Time Temp Pulse Resp B/P (MAP) Pulse Ox O2 Delivery O2 Flow Rate FiO2 11/01/18 09:00 80 162/75 11/01/18 08:00 98.1 80 21 162/75 (104) 94 11/01/18 04:00 73 11/01/18 04:00 98.0 70 18 146/48 (80) 95 11/01/18 00:00 67 11/01/18 00:00 98.1 76 18 140/59 (86) 96 10/31/18 21:00 Room Air 10/31/18 21:00 Room Air 10/31/18 20:22 78 18 98 Room Air 21 10/31/18 20:00 78 10/31/18 20:00 97.5 80 18 133/63 (86) 96 10/31/18 16:40 98.2 70 18 196/84 (121) 98 10/31/18 15:11 72 10/31/18 13:00 98.6 69 20 170/80 (110) 97 10/31/18 11:52 59 Intake and Output 10/31/18 11/01/18 19:00 07:00 Intake Total 140 ml 240 ml Balance 140 ml 240 ml Intake Oral 140 ml 240 ml # Voids 3 5 Laboratory Tests Test 11/01/18 03:30 11/01/18 06:30 Stool Occult Blood Pending White Blood Count 8.1 K/UL (4.8-10.8) Red Blood Count 3.52 M/UL (4.20-5.40) L Hemoglobin 8.4 G/DL (12.0-16.0) L Hematocrit 27.9 % (37.0-47.0) L Mean Corpuscular Volume 79 FL (80-99) L Mean Corpuscular Hemoglobin 23.7 PG (27.0-31.0) L Mean Corpuscular Hemoglobin Concent 30.0 G/DL (32.0-36.0) L Red Cell Distribution Width 16.3 % (11.6-14.8) H Platelet Count 184 K/UL (150-450) Mean Platelet Volume 8.7 FL (6.5-10.1) Neutrophils (%) (Auto) 58.9 % (45.0-75.0) Lymphocytes (%) (Auto) 23.9 % (20.0-45.0) Monocytes (%) (Auto) 12.3 % (1.0-10.0) H Eosinophils (%) (Auto) 3.3 % (0.0-3.0) H Basophils (%) (Auto) 1.6 % (0.0-2.0) Erythrocyte Sedimentation Rate 62 MM/HR (0-30) H Reticulocyte Count Pending Prothrombin Time 10.7 SEC (9.30-11.50) Prothromb Time International Ratio 1.0 (0.9-1.1) Activated Partial Thromboplast Time 26 SEC (23-33) Sodium Level 144 MMOL/L (136-145) Potassium Level 5.0 MMOL/L (3.5-5.1) Chloride Level 108 MMOL/L (98-107) H Carbon Dioxide Level 30 MMOL/L (21-32) Anion Gap 6 mmol/L (5-15) Blood Urea Nitrogen 37 mg/dL (7-18) H Creatinine 2.1 MG/DL (0.55-1.30) H Estimat Glomerular Filtration Rate mL/min (>60) Glucose Level 111 MG/DL (74-106) H Calcium Level 8.8 MG/DL (8.5-10.1) Phosphorus Level 4.2 MG/DL (2.5-4.9) Magnesium Level 1.7 MG/DL (1.8-2.4) L Iron Level 31 ug/dL (50-175) L Total Iron Binding Capacity 238 ug/dL (250-450) L Percent Iron Saturation 13 % (15-50) L Unsaturated Iron Binding 207 ug/dL (112-346) Total Bilirubin 0.5 MG/DL (0.2-1.0) Aspartate Amino Transf (AST/SGOT) 25 U/L (15-37) Alanine Aminotransferase (ALT/SGPT) 43 U/L (12-78) Alkaline Phosphatase 203 U/L (46-116) H Lactate Dehydrogenase 226 U/L (81-234) Troponin I 0.020 ng/mL (0.000-0.056) C-Reactive Protein, Quantitative 6.8 mg/dL (0.00-0.90) H Pro-B-Type Natriuretic Peptide 3741 pg/mL (0-125) H Total Protein 6.3 G/DL (6.4-8.2) L Albumin 2.5 G/DL (3.4-5.0) L Globulin 3.8 g/dL Albumin/Globulin Ratio 0.7 (1.0-2.7) L Carcinoembryonic Antigen Pending Vitamin B12 Level 764 PG/ML (193-986) Folate 13.3 NG/ML (8.6-58.9) Microbiology Date/Time Source Procedure Growth Status 10/30/18 09:00 Rectum VRE Culture - Final NO VANCOMYCIN RESISTANT ENTEROCOCCUS ... Complete 10/30/18 09:00 Rectum - Final NO CARBAPENEM-RESISTANT ENTEROBACTERI... Complete Talon Jorge MD Nov 01, 2018 10:28
[2018-11-01] MEDS ORDERED: Magnesium Oxide 400mg tab ORAL SCH (10:45)
[2018-11-01] MEDS ORDERED: Magnesium Oxide 400mg tab ORAL ONE (10:45)
--- NOTE | 2018-11-01 11:25 | Diagnostic Imaging Report ---
Indication: Dyspnea Comparison: 10/30/2018 A single view chest radiograph was obtained. Findings: Primary vascular congestion is suspected. Left pleural effusion may be present. Heart is enlarged. Right-sided PICC line is stable. IMPRESSION: CHF with some interval worsening
--- NOTE | 2018-11-01 12:33 | Diagnostic Imaging Report ---
Indication: Chest pain Technique: Continuous helical transaxial imaging of the chest was obtained from the thoracic inlet to the upper abdomen. No intravenous contrast was administered. Coronal 2-D reformats were also obtained. Total Dose length Product (DLP): 975.[address] Dose Index Volume (CTDIvol): 28.19 mGy Comparison: 10/10/2018 Findings: Small bilateral pleural effusions are present slightly increased since the previous occasion from 10/10/2018. There is mild generalized cardiomegaly present. Small degree of atelectasis demonstrated within the lingula as well as the posterior basal aspects of the lung. Small nodes are demonstrated within the mediastinum without significant change. The aorta is mildly calcified. There is no pericardial effusion. There is worsening reticulation within the subcutaneous soft tissues especially in the area of the breasts bilaterally and upper abdomen. The reason for this is not known but could be related to third spacing and history of congestive heart failure. Pulmonary vascularity is prominent and there is some pulmonary venous engorgement. There is also skin thickening as well especially in the left breast. Please correlate clinically and evaluate further as needed. There is a central venous catheter or PICC line present. The tip is within the lower part of the SVC in good position. Impression: Mild atelectasis associated with small bilateral pleural effusions. Cardiomegaly. Pulmonary vascular congestion. Atherosclerotic vascular disease Small nodes in the mediastinum nonspecific Generalized subcutaneous edema within the chest and abdominal wall may be related to CHF and third spacing. Please correlate clinically. PICC line in good position The CT scanner at [facility] is accredited by the [employer] and the scans are performed using dose optimization techniques as appropriate to a performed exam including Automatic Exposure control.
[2018-11-01] MEDS: HydrALAZINE 50mg tab ORAL SCH ×2 (13:07→22:00)
--- NOTE | 2018-11-01 14:02 | Diagnostic Imaging Report ---
Indication: Chest pain Technique: A ventilation/perfusion scan was performed. Ventilation was performed utilizing 40 mCi of Technetium 99m-DTPA. Perfusion was performed with 5.5 mCi of technetium 99m-MAA injected intravenously. Multiple side by side projections obtained. Findings: Ventilation is mildly heterogeneous. No significant defects are identified. Perfusion is mildly heterogeneous. No significant defects are identified. Impression: Low probability for pulmonary embolus Interpretation based on PIOPED 2 criteria from 2005
--- NOTE | 2018-11-01 14:38 | NUR ---
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 97.7 HR 75 RR 21 B/P 164/85 ESR 62 RETIC CNT 2.2 BUN 37 CR 2.1 MG 1.7 BNP 3741 CXR= CHF WORSENING VQ SCAN= LOW PROBABILITY OF PE CHEST CT=Mild atelectasis associated with small bilateral pleural effusions. Cardiomegaly. Pulmonary vascular congestion. IS: HYDRALAZINE PO SYNTHROID PO LASIX IV HEPARIN SUBC TELE STATUS
--- NOTE | 2018-11-01 18:25 | NUR ---
NURSE NOTES: Patient's B/P 166/75 recheck X2 via manual cuff. Patient asymptomatic. PRn hydralazine 10 mg IV given. B/P rechecked 152/70. Will follow.
--- NOTE | 2018-11-01 18:40 | Pulmonology Progress Note ---
Assessment/Plan Problems: (1) Pulmonary edema cardiac cause (2) Cardiomegaly (3) Anemia (4) Diabetes mellitus, type II (5) Diabetes mellitus (6) HTN (hypertension) Assessment/Plan CT angio and V/Q scan reviewed, both negative ( Not a very smart idea to order them) telemetry monitoring iv lasix f/u bnp and CXR venous doppler of legs watch intake and output. f/ electrolytes. Dr. Sawyer called for nephrology Subjective ROS Limited/Unobtainable: No Constitutional: Reports: no symptoms HEENT: Repors: no symptoms Respiratory: Reports: no symptoms Allergies: Coded Allergies: No Known Allergies (Unverified , 02/27/18) Objective Last 24 Hour Vital Signs Date Time Temp Pulse Resp B/P (MAP) Pulse Ox O2 Delivery O2 Flow Rate FiO2 11/01/18 18:24 97.0 76 18 152/69 (96) 94 11/01/18 17:45 166/70 11/01/18 16:00 74 11/01/18 16:00 97.0 78 23 166/70 (102) 94 11/01/18 13:07 164/85 11/01/18 12:36 77 20 97 Room Air 21 11/01/18 12:00 97.7 75 21 164/85 (111) 94 11/01/18 12:00 69 11/01/18 09:00 80 162/75 11/01/18 08:00 Room Air 11/01/18 08:00 82 11/01/18 08:00 98.1 80 21 162/75 (104) 94 11/01/18 04:00 73 11/01/18 04:00 98.0 70 18 146/48 (80) 95 11/01/18 00:00 67 11/01/18 00:00 98.1 76 18 140/59 (86) 96 10/31/18 21:00 Room Air 10/31/18 21:00 Room Air 10/31/18 20:22 78 18 98 Room Air 21 10/31/18 20:00 78 10/31/18 20:00 97.5 80 18 133/63 (86) 96 Intake and Output 10/31/18 11/01/18 19:00 07:00 Intake Total 140 ml 240 ml Balance 140 ml 240 ml Intake Oral 140 ml 240 ml # Voids 3 5 HEENT: normocephalic, atraumatic Respiratory/Chest: chest wall non-tender, normal breath sounds Cardiovascular: no JVD Abdomen: normal bowel sounds Extremities: no cyanosis 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: abnormal gait Microbiology Date/Time Source Procedure Growth Status 10/30/18 09:00 Nasal Nares MRSA Culture - Final NO METHICILLIN RESISTANT STAPH AUREUS... Complete 10/30/18 09:00 Rectum VRE Culture - Final NO VANCOMYCIN RESISTANT ENTEROCOCCUS ... Complete 10/30/18 09:00 Rectum - Final NO CARBAPENEM-RESISTANT ENTEROBACTERI... Complete Laboratory Tests 11/01/18 03:30: Stool Occult Blood Negative 11/01/18 06:30: White Blood Count 8.1, Red Blood Count 3.52L, Hemoglobin 8.4L, Hematocrit 27.9L , Mean Corpuscular Volume 79L, Mean Corpuscular Hemoglobin 23.7L, Mean Corpuscular Hemoglobin Concent 30.0L, Red Cell Distribution Width 16.3H, Platelet Count 184, Mean Platelet Volume 8.7, Neutrophils (%) (Auto) 58.9, Lymphocytes (%) (Auto) 23.9, Monocytes (%) (Auto) 12.3H, Eosinophils (%) (Auto) 3.3H, Basophils (%) (Auto) 1.6, Neutrophils % (Manual) 59, Lymphocytes % (Manual ) 24, Monocytes % (Manual) 11H, Eosinophils % (Manual) 3, Basophils % (Manual) 0 , Band Neutrophils 0, Platelet Estimate Adequate, Platelet Morphology Normal, Red Blood Cell Morphology , Erythrocyte Sedimentation Rate 62H, Reticulocyte Count 2.2H, Prothrombin Time 10.7, Prothromb Time International Ratio 1.0, Activated Partial Thromboplast Time 26, Sodium Level 144, Potassium Level 5.0, Chloride Level 108H, Carbon Dioxide Level 30, Anion Gap 6, Blood Urea Nitrogen 37H, Creatinine 2.1H, Estimat Glomerular Filtration Rate , Glucose Level 111H, Calcium Level 8.8, Phosphorus Level 4.2, Magnesium Level 1.7L, Iron Level 31L, Total Iron Binding Capacity 238L, Percent Iron Saturation 13L, Unsaturated Iron Binding 207, Total Bilirubin 0.5, Aspartate Amino Transf (AST/SGOT) 25, Alanine Aminotransferase (ALT/SGPT) 43, Alkaline Phosphatase 203H, Lactate Dehydrogenase 226, Troponin I 0.020, C-Reactive Protein, Quantitative 6.8H, Pro- B-Type Natriuretic Peptide 3741H, Total Protein 6.3L, Albumin 2.5L, Globulin 3.8 , Albumin/Globulin Ratio 0.7L, Carcinoembryonic Antigen [Pending], Vitamin B12 Level 764, Folate 13.3 Current Medications Medications (Trade) Dose Ordered Sig/Alfonso Route PRN Reason Start Time Stop Time Status Last Admin Dose Admin Acetaminophen (Tylenol) 650 mg Q4H PRN ORAL Fever 10/30/18 12:30 11/29/18 12:29 Albuterol/ Ipratropium (Albuterol/ Ipratropium) 3 ml EVERY 4 HOURS PRN HHN Shortness of Breath 10/30/18 12:30 11/04/18 12:29 Chlorhexidine Gluconate (Lorena-Hex 2%) 1 applic DAILY@2000 TOPIC 10/30/18 23:00 11/30/18 19:59 10/31/18 21:57 Clonidine HCl (Catapres TTS-1) 1 patch QWEEK TDERMAL 10/30/18 18:00 11/29/18 17:59 10/30/18 17:58 Clonidine HCl (Catapres Tab) 0.1 mg Q6H PRN ORAL For High Blood Pressure 10/30/18 17:00 11/29/18 16:59 10/31/18 08:53 Dextrose (Dextrose 50%) 25 ml Q30M PRN IV Hypoglycemia 10/30/18 12:30 11/29/18 12:29 Dextrose (Dextrose 50%) 50 ml Q30M PRN IV Hypoglycemia 10/30/18 12:30 11/29/18 12:29 Furosemide (Lasix) 40 mg EVERY 8 HOURS IV 10/30/18 14:00 11/29/18 13:59 11/01/18 13:07 Heparin Sodium (Porcine) (Heparin 5000 units/ml) 5,000 units EVERY 12 HOURS SUBQ 10/30/18 21:00 11/29/18 20:59 11/01/18 09:27 Hydralazine HCl (Apresoline) 10 mg Q2H PRN IV For High Blood Pressure 10/31/18 19:24 11/30/18 19:23 11/01/18 17:45 Hydralazine HCl (Apresoline) 50 mg Q8HR ORAL 11/01/18 14:00 12/01/18 13:59 11/01/18 13:07 Insulin Aspart (NovoLOG) BEFORE MEALS AND HS SUBQ 10/30/18 16:30 11/29/18 16:29 10/31/18 22:02 Levothyroxine Sodium (Synthroid) 125 mcg ACBREAKFAST ORAL 10/31/18 06:30 11/30/18 06:29 11/01/18 06:31 Ondansetron HCl (Zofran) 4 mg Q6H PRN IVP Nausea & Vomiting 10/30/18 12:30 11/29/18 12:29 Ondansetron HCl (Zofran) 4 mg Q6H PRN ORAL Nausea & Vomiting 10/30/18 12:30 11/29/18 12:29 Polyethylene Glycol (Miralax) 17 gm DAILYPRN PRN ORAL Constipation 10/30/18 12:30 11/29/18 12:29 Sitagliptin Phosphate (Januvia) 50 mg ACBREAKFAST ORAL 10/31/18 06:30 11/30/18 06:29 11/01/18 06:31 Temazepam (Restoril) 15 mg HSPRN PRN ORAL Insomnia 10/30/18 12:30 11/06/18 12:29 Dong Ambriz MD Nov 01, 2018 18:40
[2018-11-01 18:58] LABS: CREATINE KINASE 99 U/L (26-308)
--- NOTE | 2018-11-01 19:15 | Consultation ---
DATE OF CONSULTATION: 11/01/2018 CARDIAC ELECTROPHYSIOLOGY CONSULTATION CONSULTING PHYSICIAN: Talon Jorge M.D. REFERRING PHYSICIAN: Cirilo Blancas M.D. ADDITIONAL REFERRING PHYSICIAN: Jony Cardona M.D. REASON FOR THE CONSULTATION: Bradycardia. HISTORY OF PRESENT ILLNESS: The patient is a 73-year-old lady with history of hypertension who I am familiar with from previous hospitalizations. The patient has history of congestive heart failure, diabetes, history of peripheral neuropathy. The patient was admitted for accelerated hypertension and severe bilateral lower extremity edema. On telemetry, the patient was bradycardic and the blood pressure was also very high. The patient was refusing to take some of her medications. Echocardiogram showed ejection fraction of around 70% to 75%, large pleural effusion with diastolic dysfunction. At the time of my evaluation, the patient denies any chest pain, palpitation, or shortness of breath. REVIEW OF SYSTEMS: Review of systems was negative other than what was mentioned in the history of present illness PAST MEDICAL HISTORY: As mentioned above. FAMILY HISTORY: Noncontributory. SOCIAL HISTORY: She does not smoke or drink alcohol. PHYSICAL EXAMINATION: VITAL SIGNS: Show blood pressure of 160/75, pulse is 80, respirations 18, and temperature 98.1. HEAD AND NECK: No JVD. LUNGS: Clear. CARDIOVASCULAR: Regular S1 and S2 with no gallop or murmur. ABDOMEN: Soft. EXTREMITIES: A 2+ pitting edema. LABORATORY AND DIAGNOSTIC DATA: Her EKG shows sinus rhythm with occasional PACs. Her telemetry strip showed bradycardia, heart rate of 51. Echocardiogram shows ejection fraction of 60% to 65%. EKG showed normal sinus rhythm, normal electrocardiogram. Labs show white count of 8.5, hemoglobin 8.1, hematocrit of 28, and platelet count is 184,000. Sodium 144, potassium 5.0, BUN of 37, creatinine of 2.1, and glucose of 111. Troponin is negative. BNP . ASSESSMENT AND PLAN: 1. Bradycardia. The patient is currently on clonidine patch weekly. Lowest heart rate was in the high 40s and low 50s. The patient the clonidine patch though. The patient is also hypothyroid, is already on Synthroid. 2. Severe bilateral lower extremity edema. The patient on Lasix 40 mg IV every 8 hours. Amlodipine may have some role in causing the patient's lower extremity edema and we will discontinue it. The patient is on hydralazine 50 mg every 8 hours. 3. Congestive heart failure, diastolic dysfunction, on Lasix. 4. History of left foot osteomyelitis. Thank you very much for allowing me to participate in the care of this patient. Please do not hesitate to contact me for any questions regarding my evaluation. Sincerely, Talon Jorge M.D. DR: Phil JOB#: [id number] CC:
--- NOTE | 2018-11-01 19:16 | Internal Med Progress Note ---
Subjective Date of Service: Nov 01, 2018 Physician Name Jony Cardona Attending Physician Cirilo Blancas MD Current Medications Medications (Trade) Dose Ordered Sig/Alfonso Route PRN Reason Start Time Stop Time Status Last Admin Dose Admin Acetaminophen (Tylenol) 650 mg Q4H PRN ORAL Fever 10/30/18 12:30 11/29/18 12:29 Albuterol/ Ipratropium (Albuterol/ Ipratropium) 3 ml EVERY 4 HOURS PRN HHN Shortness of Breath 10/30/18 12:30 11/04/18 12:29 Chlorhexidine Gluconate (Lorena-Hex 2%) 1 applic DAILY@2000 TOPIC 10/30/18 23:00 11/30/18 19:59 10/31/18 21:57 Clonidine HCl (Catapres TTS-1) 1 patch QWEEK TDERMAL 10/30/18 18:00 11/29/18 17:59 10/30/18 17:58 Clonidine HCl (Catapres Tab) 0.1 mg Q6H PRN ORAL For High Blood Pressure 10/30/18 17:00 11/29/18 16:59 10/31/18 08:53 Dextrose (Dextrose 50%) 25 ml Q30M PRN IV Hypoglycemia 10/30/18 12:30 11/29/18 12:29 Dextrose (Dextrose 50%) 50 ml Q30M PRN IV Hypoglycemia 10/30/18 12:30 11/29/18 12:29 Furosemide (Lasix) 40 mg EVERY 8 HOURS IV 10/30/18 14:00 11/29/18 13:59 11/01/18 13:07 Heparin Sodium (Porcine) (Heparin 5000 units/ml) 5,000 units EVERY 12 HOURS SUBQ 10/30/18 21:00 11/29/18 20:59 11/01/18 09:27 Hydralazine HCl (Apresoline) 10 mg Q2H PRN IV For High Blood Pressure 10/31/18 19:24 11/30/18 19:23 11/01/18 17:45 Hydralazine HCl (Apresoline) 50 mg Q8HR ORAL 11/01/18 14:00 12/01/18 13:59 11/01/18 13:07 Insulin Aspart (NovoLOG) BEFORE MEALS AND HS SUBQ 10/30/18 16:30 11/29/18 16:29 8/7/19 22:02 Levothyroxine Sodium (Synthroid) 125 mcg ACBREAKFAST ORAL 10/31/18 06:30 11/30/18 06:29 11/01/18 06:31 Ondansetron HCl (Zofran) 4 mg Q6H PRN IVP Nausea & Vomiting 10/30/18 12:30 11/29/18 12:29 Ondansetron HCl (Zofran) 4 mg Q6H PRN ORAL Nausea & Vomiting 10/30/18 12:30 11/29/18 12:29 Polyethylene Glycol (Miralax) 17 gm DAILYPRN PRN ORAL Constipation 10/30/18 12:30 11/29/18 12:29 Sitagliptin Phosphate (Januvia) 50 mg ACBREAKFAST ORAL 10/31/18 06:30 11/30/18 06:29 11/01/18 06:31 Temazepam (Restoril) 15 mg HSPRN PRN ORAL Insomnia 10/30/18 12:30 11/06/18 12:29 Allergies: Coded Allergies: No Known Allergies (Unverified , 02/27/18) ROS Limited/Unobtainable: No Constitutional: Reports: no symptoms HEENT: Reports: no symptoms Cardiovascular: Reports: no symptoms Respiratory: Reports: no symptoms Gastrointestinal/Abdominal: Reports: no symptoms Genitourinary: Reports: no symptoms 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: Reports: no symptoms Subjective 73 YO F admitted with generalized edema. Cover for Int Med-Dr Blancas. Uncontrolled hypertension; Patient refusing meds. "I want to take my regular medications Objective Last Vital Signs Date Time Temp Pulse Resp B/P (MAP) Pulse Ox O2 Delivery O2 Flow Rate FiO2 11/01/18 18:24 97.0 76 18 152/69 (96) 94 11/01/18 12:36 Room Air 21 Laboratory Tests Test 11/01/18 03:30 11/01/18 06:30 11/01/18 06:45 Stool Occult Blood Negative (NEGATIVE) White Blood Count 8.1 K/UL (4.8-10.8) Red Blood Count 3.52 M/UL (4.20-5.40) L Hemoglobin 8.4 G/DL (12.0-16.0) L Hematocrit 27.9 % (37.0-47.0) L Mean Corpuscular Volume 79 FL (80-99) L Mean Corpuscular Hemoglobin 23.7 PG (27.0-31.0) L Mean Corpuscular Hemoglobin Concent 30.0 G/DL (32.0-36.0) L Red Cell Distribution Width 16.3 % (11.6-14.8) H Platelet Count 184 K/UL (150-450) Mean Platelet Volume 8.7 FL (6.5-10.1) Neutrophils (%) (Auto) 58.9 % (45.0-75.0) Lymphocytes (%) (Auto) 23.9 % (20.0-45.0) Monocytes (%) (Auto) 12.3 % (1.0-10.0) H Eosinophils (%) (Auto) 3.3 % (0.0-3.0) H Basophils (%) (Auto) 1.6 % (0.0-2.0) Neutrophils % (Manual) 59 % (45-75) Lymphocytes % (Manual) 24 % (20-45) Monocytes % (Manual) 11 % (1-10) H Eosinophils % (Manual) 3 % (0-3) Basophils % (Manual) 0 % (0-2) Band Neutrophils 0 % (0-8) Platelet Estimate Adequate Platelet Morphology Normal Red Blood Cell Morphology Erythrocyte Sedimentation Rate 62 MM/HR (0-30) H Reticulocyte Count 2.2 % (0.5-2.0) H Prothrombin Time 10.7 SEC (9.30-11.50) Prothromb Time International Ratio 1.0 (0.9-1.1) Activated Partial Thromboplast Time 26 SEC (23-33) Sodium Level 144 MMOL/L (136-145) Potassium Level 5.0 MMOL/L (3.5-5.1) Chloride Level 108 MMOL/L (98-107) H Carbon Dioxide Level 30 MMOL/L (21-32) Anion Gap 6 mmol/L (5-15) Blood Urea Nitrogen 37 mg/dL (7-18) H Creatinine 2.1 MG/DL (0.55-1.30) H Estimat Glomerular Filtration Rate mL/min (>60) Glucose Level 111 MG/DL (74-106) H Calcium Level 8.8 MG/DL (8.5-10.1) Phosphorus Level 4.2 MG/DL (2.5-4.9) Magnesium Level 1.7 MG/DL (1.8-2.4) L Iron Level 31 ug/dL (50-175) L Total Iron Binding Capacity 238 ug/dL (250-450) L Percent Iron Saturation 13 % (15-50) L Unsaturated Iron Binding 207 ug/dL (112-346) Total Bilirubin 0.5 MG/DL (0.2-1.0) Aspartate Amino Transf (AST/SGOT) 25 U/L (15-37) Alanine Aminotransferase (ALT/SGPT) 43 U/L (12-78) Alkaline Phosphatase 203 U/L (46-116) H Lactate Dehydrogenase 226 U/L (81-234) Troponin I 0.020 ng/mL (0.000-0.056) C-Reactive Protein, Quantitative 6.8 mg/dL (0.00-0.90) H Pro-B-Type Natriuretic Peptide 3741 pg/mL (0-125) H Total Protein 6.3 G/DL (6.4-8.2) L Albumin 2.5 G/DL (3.4-5.0) L Globulin 3.8 g/dL Albumin/Globulin Ratio 0.7 (1.0-2.7) L Carcinoembryonic Antigen Pending Vitamin B12 Level 764 PG/ML (193-986) Folate 13.3 NG/ML (8.6-58.9) Uric Acid 7.1 MG/DL (2.6-7.2) Total Creatine Kinase 99 U/L (26-308) Microbiology Date/Time Source Procedure Growth Status 10/30/18 09:00 Nasal Nares MRSA Culture - Final NO METHICILLIN RESISTANT STAPH AUREUS... Complete 10/30/18 09:00 Rectum VRE Culture - Final NO VANCOMYCIN RESISTANT ENTEROCOCCUS ... Complete 10/30/18 09:00 Rectum - Final NO CARBAPENEM-RESISTANT ENTEROBACTERI... Complete Intake and Output 10/31/18 11/01/18 19:00 07:00 Intake Total 140 ml 240 ml Balance 140 ml 240 ml Intake Oral 140 ml 240 ml # Voids 3 5 Objective PHYSICAL EXAMINATION: GENERAL: The patient is a well-developed and well-nourished obese female, in no apparent distress. HEENT: Eyes, pupils are equal and responsive to light and accommodation. Extraocular movements are intact. NECK: Supple without lymphadenopathy. CHEST: Lungs are clear to auscultation bilaterally without wheezes or rales. CARDIOVASCULAR: Regular rhythm and rate. S1 and S2 are normal without murmurs, rubs, or gallops. ABDOMEN: Soft, nontender, and nondistended. Positive bowel sounds. No evidence of hepatosplenomegaly. Currently, no rebound or guarding noted. EXTREMITIES: A 3+ pitting edema in bilateral ankles to the knee. Otherwise, without cyanosis. NEUROMUSCULAR: Cranial nerves II through XII are grossly intact without focal deficits. Motor strength is 5/5 bilaterally. Deep tendon reflexes are 2+ plantar. Assessment/Plan Assessment/Plan ASSESSMENT: This is a 73-year-old female. 1. Anasarca. 2. Congestive heart failure, acute. 3. Osteomyelitis of the left foot. 4. Diabetes type 2. 5. Hypertensive emergency. 6. Chronic renal failure. 7. Obesity. 8. Hypothyroidism TREATMENT: 1. Congestive heart failure/anasarca. A Cardiology consultation has been obtained with Dr. Talon Jorge. Echocardiogram LVEF=60-65%. We will follow recommendation of Cardiology. 2. Osteomyelitis of the left foot. Continue ceftriaxone and vancomycin as above. 3. Diabetes type 2. A NovoLog sliding scale has been instituted. 4. Hypertensive emergency. The patient has been placed on clonidine TTS 1 patch. Atenolol has been held secondary to bradycardia. We will follow recommendations of Cardiology. 5. Chronic renal failure. 6. Obesity. 7. thyroid function test=Jony Warner MD Nov 01, 2018 19:16
--- NOTE | 2018-11-01 19:49 | NUR ---
HAND-OFF: Report given to Ely Plummer. PAtient stable at hand off. Plan of care endorsed.
[2018-11-01] MEDS: Dyna-Hex 2% Top Sol 2oz TOPIC SCH (20:35)
--- NOTE | 2018-11-01 20:48 | Cardiology Progress Note ---
Assessment/Plan Assessment/Plan 1. Severe peripheral edema. 2. Dilated IVC suggestive of increased right atrial pressure ? restrictive Cardiomyopathy? 3. Morbid obesity. 4. Diabetes mellitus. 5. Recent osteomyelitis. 6. Acute on chronic renal insufficiency. 7. Anemia. 8. Obesity 9. Hypoalbuminemia sig edema probably due to combination hypoalbuminemia and norvasc adn increased RA pressure ivc dilation suggestive of increased RA pressure ,without sig RV enlargement and or hypokinesis one possibility may be restrictive cardiomyoapthy , doubt constrictive pericarditis cannot effectively estimate pasp as poor TR velicity profile v/q low probablity non contrast ct showed generalized edema no sig of rve either on the ct , no mention of pericardial thickness on samira report diuretic as needed / tolerated agree with switch to another agent for bp nutrition support one may consider evaluation of causes such as multiple myleloma Subjective ROS Limited/Unobtainable: Yes Objective Last 24 Hour Vital Signs Date Time Temp Pulse Resp B/P (MAP) Pulse Ox O2 Delivery O2 Flow Rate FiO2 11/01/18 20:00 97.7 87 18 154/74 (100) 96 11/01/18 18:24 97.0 76 18 152/69 (96) 94 11/01/18 17:45 166/70 11/01/18 16:00 74 11/01/18 16:00 97.0 78 23 166/70 (102) 94 11/01/18 13:07 164/85 11/01/18 12:36 77 20 97 Room Air 21 11/01/18 12:00 97.7 75 21 164/85 (111) 94 11/01/18 12:00 69 11/01/18 09:00 80 162/75 11/01/18 08:00 Room Air 11/01/18 08:00 82 11/01/18 08:00 98.1 80 21 162/75 (104) 94 11/01/18 04:00 73 11/01/18 04:00 98.0 70 18 146/48 (80) 95 11/01/18 00:00 67 11/01/18 00:00 98.1 76 18 140/59 (86) 96 10/31/18 21:00 Room Air 10/31/18 21:00 Room Air General Appearance: alert Cardiovascular: normal rate Respiratory/Chest: lungs clear Abdomen: non tender, soft Intake and Output 10/31/18 11/01/18 19:00 07:00 Intake Total 140 ml 240 ml Balance 140 ml 240 ml Intake Oral 140 ml 240 ml # Voids 3 5 Laboratory Tests Test 11/01/18 03:30 11/01/18 06:30 11/01/18 06:45 Stool Occult Blood Negative (NEGATIVE) White Blood Count 8.1 K/UL (4.8-10.8) Red Blood Count 3.52 M/UL (4.20-5.40) L Hemoglobin 8.4 G/DL (12.0-16.0) L Hematocrit 27.9 % (37.0-47.0) L Mean Corpuscular Volume 79 FL (80-99) L Mean Corpuscular Hemoglobin 23.7 PG (27.0-31.0) L Mean Corpuscular Hemoglobin Concent 30.0 G/DL (32.0-36.0) L Red Cell Distribution Width 16.3 % (11.6-14.8) H Platelet Count 184 K/UL (150-450) Mean Platelet Volume 8.7 FL (6.5-10.1) Neutrophils (%) (Auto) 58.9 % (45.0-75.0) Lymphocytes (%) (Auto) 23.9 % (20.0-45.0) Monocytes (%) (Auto) 12.3 % (1.0-10.0) H Eosinophils (%) (Auto) 3.3 % (0.0-3.0) H Basophils (%) (Auto) 1.6 % (0.0-2.0) Neutrophils % (Manual) 59 % (45-75) Lymphocytes % (Manual) 24 % (20-45) Monocytes % (Manual) 11 % (1-10) H Eosinophils % (Manual) 3 % (0-3) Basophils % (Manual) 0 % (0-2) Band Neutrophils 0 % (0-8) Platelet Estimate Adequate Platelet Morphology Normal Red Blood Cell Morphology Erythrocyte Sedimentation Rate 62 MM/HR (0-30) H Reticulocyte Count 2.2 % (0.5-2.0) H Prothrombin Time 10.7 SEC (9.30-11.50) Prothromb Time International Ratio 1.0 (0.9-1.1) Activated Partial Thromboplast Time 26 SEC (23-33) Sodium Level 144 MMOL/L (136-145) Potassium Level 5.0 MMOL/L (3.5-5.1) Chloride Level 108 MMOL/L (98-107) H Carbon Dioxide Level 30 MMOL/L (21-32) Anion Gap 6 mmol/L (5-15) Blood Urea Nitrogen 37 mg/dL (7-18) H Creatinine 2.1 MG/DL (0.55-1.30) H Estimat Glomerular Filtration Rate mL/min (>60) Glucose Level 111 MG/DL (74-106) H Calcium Level 8.8 MG/DL (8.5-10.1) Phosphorus Level 4.2 MG/DL (2.5-4.9) Magnesium Level 1.7 MG/DL (1.8-2.4) L Iron Level 31 ug/dL (50-175) L Total Iron Binding Capacity 238 ug/dL (250-450) L Percent Iron Saturation 13 % (15-50) L Unsaturated Iron Binding 207 ug/dL (112-346) Total Bilirubin 0.5 MG/DL (0.2-1.0) Aspartate Amino Transf (AST/SGOT) 25 U/L (15-37) Alanine Aminotransferase (ALT/SGPT) 43 U/L (12-78) Alkaline Phosphatase 203 U/L (46-116) H Lactate Dehydrogenase 226 U/L (81-234) Troponin I 0.020 ng/mL (0.000-0.056) C-Reactive Protein, Quantitative 6.8 mg/dL (0.00-0.90) H Pro-B-Type Natriuretic Peptide 3741 pg/mL (0-125) H Total Protein 6.3 G/DL (6.4-8.2) L Albumin 2.5 G/DL (3.4-5.0) L Globulin 3.8 g/dL Albumin/Globulin Ratio 0.7 (1.0-2.7) L Carcinoembryonic Antigen Pending Vitamin B12 Level 764 PG/ML (193-986) Folate 13.3 NG/ML (8.6-58.9) Uric Acid 7.1 MG/DL (2.6-7.2) Total Creatine Kinase 99 U/L (26-308) Microbiology Date/Time Source Procedure Growth Status 10/30/18 09:00 Nasal Nares MRSA Culture - Final NO METHICILLIN RESISTANT STAPH AUREUS... Complete 10/30/18 09:00 Rectum VRE Culture - Final NO VANCOMYCIN RESISTANT ENTEROCOCCUS ... Complete 10/30/18 09:00 Rectum - Final NO CARBAPENEM-RESISTANT ENTEROBACTERI... Complete Marcos Mendes MD Nov 01, 2018 20:48
[2018-11-02] VITALS: BP 146/52
[2018-11-02 04:00] VITALS: BP 157/70
[2018-11-02] MEDS: sitaGLIPtin 50mg tab ORAL SCH (05:59)
[2018-11-02] MEDS: HydrALAZINE 50mg tab ORAL SCH ×2 (05:59→14:00)
[2018-11-02] MEDS: Levothyroxine 125mcg tab ORAL SCH (05:59)
[2018-11-02] MEDS: NovoLOG Insulin Flexpen SUBQ SCH ×2 (06:11→12:38)
--- NOTE | 2018-11-02 07:37 | NUR ---
Pt. in bed knitting and fully awake and talking. 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 Bed is locked and in lowest position. Call light is within reach will continue to monitor blood pressure. Addendum: 11/02/18 at 0800 by Theresa Bishop RN NURSE NOTES: Pt. in bed knitting and fully awake and talking. pt is AOx4. 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 Bed is locked and in lowest position. Call light is within reach will continue to monitor blood pressure. pt has a piccline double lumen on R upper arm.
[2018-11-02 07:57] LABS: BASOPHILS % (AUTO) 1.9 % (0.0-2.0); EOSINOPHILS % (AUTO) 3.4 % (0.0-3.0); HEMATOCRIT 28.6 % (37.0-47.0); HEMOGLOBIN 8.5 G/DL (12.0-16.0); LYMPHOCYTES % (AUTO) 24.2 % (20.0-45.0); MEAN CORPUSCULAR VOLUME 80 FL (80-99); MONOCYTES % (AUTO) 14.7 % (1.0-10.0); NEUTROPHILS % (AUTO) 55.8 % (45.0-75.0); PLATELET COUNT 204 K/UL (150-450); RED CELL DISTRIBUTION WIDTH 16.3 % (11.6-14.8); WHITE BLOOD COUNT 8.7 K/UL (4.8-10.8)
[2018-11-02 08:00] VITALS: BP 126/73
[2018-11-02 08:03] LABS: ANION GAP 5 mmol/L (5-15); BLOOD UREA NITROGEN 40 mg/dL (7-18); CALCIUM 8.9 MG/DL (8.5-10.1); CARBON DIOXIDE 31 MMOL/L (21-32); CHLORIDE 107 MMOL/L (98-107); CREATININE 2.4 MG/DL (0.55-1.30); POTASSIUM 4.6 MMOL/L (3.5-5.1); SODIUM 143 MMOL/L (136-145)
[2018-11-02] MEDS: Heparin 5000 units/ml inj SUBQ SCH (08:55)
--- NOTE | 2018-11-02 10:00 | Diagnostic Imaging Report ---
Indication: Abnormal renal function Technique: Grayscale and color Doppler ultrasound imaging of the kidneys and bladder Comparison: None Findings: Right kidney measures 10.2 cm in length. Left kidney measures 10.9 cm in length. Both kidneys demonstrate normal echogenicity. Normal color flow is visualized in the bilateral kidneys. No sonographically appreciable renal stone. No definite hydronephrosis. Bilateral ureteral jets are identified. Bladder is unremarkable in appearance. Bladder volume 154 mL. No post void images were obtained. Impression: * Renal echogenicity within normal limits. * No hydronephrosis or sonographically appreciable renal stone. * Bladder unremarkable.
[2018-11-02 12:00] VITALS: BP 168/82
[2018-11-02] MEDS ORDERED: MIRALAX119 GM ORAL (12:01)
[2018-11-02] MEDS ORDERED: APRESOLINE50 MG ORAL (12:01)
[2018-11-02] MEDS ORDERED: NOVOLOG100 UNITS1 SUBQ (12:01)
[2018-11-02] MEDS ORDERED: LEVOTHYROXINE125 MCG ORAL (12:01)
[2018-11-02] MEDS ORDERED: JANUVIA50 MG ORAL (12:01)
[2018-11-02] MEDS ORDERED: CATAPRES TTS-1 PATCH TDERMAL (12:01)
[2018-11-02] MEDS ORDERED: FUROSEMIDE40 MG ORAL (12:04)
--- NOTE | 2018-11-02 12:07 | Pulmonology Progress Note ---
Assessment/Plan Problems: (1) Pulmonary edema cardiac cause (2) Cardiomegaly (3) Anemia (4) Diabetes mellitus, type II (5) Diabetes mellitus (6) HTN (hypertension) Assessment/Plan Dr. Mendes note reviewed, serum electrophoresis and Urine electrophoresis orderd dc iv lasix f/u bnp and CXR venous doppler of legs watch intake and output. f/ electrolytes. Dr. Sawyer called for nephrology Subjective ROS Limited/Unobtainable: No Constitutional: Reports: no symptoms HEENT: Repors: no symptoms Respiratory: Reports: no symptoms Allergies: Coded Allergies: No Known Allergies (Unverified , 02/27/18) Objective Last 24 Hour Vital Signs Date Time Temp Pulse Resp B/P (MAP) Pulse Ox O2 Delivery O2 Flow Rate FiO2 11/02/18 09:00 Room Air 11/02/18 08:16 86 12 94 Room Air 21 11/02/18 08:00 98.6 87 18 126/73 (90) 98 11/02/18 05:59 157/70 11/02/18 04:00 70 11/02/18 04:00 98.2 80 18 157/70 (99) 96 11/02/18 00:00 97.5 74 16 146/52 (83) 95 11/01/18 22:00 154/74 11/01/18 21:00 Room Air 11/01/18 20:18 81 16 99 Room Air 21 11/01/18 20:00 88 11/01/18 20:00 97.7 87 18 154/74 (100) 96 11/01/18 18:24 97.0 76 18 152/69 (96) 94 11/01/18 17:45 166/70 11/01/18 16:00 74 11/01/18 16:00 97.0 78 23 166/70 (102) 94 11/01/18 13:07 164/85 11/01/18 12:36 77 20 97 Room Air 21 Intake and Output 11/01/18 11/02/18 19:00 07:00 Intake Total 720 ml 220 ml Output Total 600 ml Balance 120 ml 220 ml Intake Oral 720 ml 220 ml Output Urine Total 600 ml # Voids 6 4 # Bowel Movements 2 General Appearance: WD/WN HEENT: normocephalic, atraumatic Respiratory/Chest: chest wall non-tender, normal breath sounds Cardiovascular: normal peripheral pulses, normal rate Abdomen: normal bowel sounds, soft, non tender Laboratory Tests 11/02/18 01:05: Urine Random Sodium 86, Urine Potassium Timed 31 11/02/18 07:50: White Blood Count 8.7, Red Blood Count 3.60L, Hemoglobin 8.5L, Hematocrit 28.6L , Mean Corpuscular Volume 80, Mean Corpuscular Hemoglobin 23.7L, Mean Corpuscular Hemoglobin Concent 29.8L, Red Cell Distribution Width 16.3H, Platelet Count 204, Mean Platelet Volume 8.4, Neutrophils (%) (Auto) 55.8, Lymphocytes (%) (Auto) 24.2, Monocytes (%) (Auto) 14.7H, Eosinophils (%) (Auto) 3.4H, Basophils (%) (Auto) 1.9, Sodium Level 143, Potassium Level 4.6, Chloride Level 107, Carbon Dioxide Level 31, Anion Gap 5, Blood Urea Nitrogen 40H, Creatinine 2.4H, Estimat Glomerular Filtration Rate , Glucose Level 174H, Calcium Level 8.9 Current Medications Medications (Trade) Dose Ordered Sig/Alfonso Route PRN Reason Start Time Stop Time Status Last Admin Dose Admin Acetaminophen (Tylenol) 650 mg Q4H PRN ORAL Fever 10/30/18 12:30 11/29/18 12:29 Albuterol/ Ipratropium (Albuterol/ Ipratropium) 3 ml EVERY 4 HOURS PRN HHN Shortness of Breath 10/30/18 12:30 11/04/18 12:29 Chlorhexidine Gluconate (Lorena-Hex 2%) 1 applic DAILY@1999 TOPIC 10/30/18 23:00 11/30/18 19:59 11/01/18 20:35 Clonidine HCl (Catapres TTS-1) 1 patch QWEEK TDERMAL 10/30/18 18:00 11/29/18 17:59 10/30/18 17:58 Clonidine HCl (Catapres Tab) 0.1 mg Q6H PRN ORAL For High Blood Pressure 10/30/18 17:00 11/29/18 16:59 10/31/18 08:53 Dextrose (Dextrose 50%) 25 ml Q30M PRN IV Hypoglycemia 10/30/18 12:30 11/29/18 12:29 Dextrose (Dextrose 50%) 50 ml Q30M PRN IV Hypoglycemia 10/30/18 12:30 11/29/18 12:29 Heparin Sodium (Porcine) (Heparin 5000 units/ml) 5,000 units EVERY 12 HOURS SUBQ 10/30/18 21:00 11/29/18 20:59 11/02/18 08:55 Hydralazine HCl (Apresoline) 10 mg Q2H PRN IV For High Blood Pressure 10/31/18 19:24 11/30/18 19:23 11/01/18 17:45 Hydralazine HCl (Apresoline) 50 mg Q8HR ORAL 11/01/18 14:00 12/01/18 13:59 11/02/18 05:59 Insulin Aspart (NovoLOG) BEFORE MEALS AND HS SUBQ 10/30/18 16:30 11/29/18 16:29 11/02/18 06:11 Levothyroxine Sodium (Synthroid) 125 mcg ACBREAKFAST ORAL 10/31/18 06:30 11/30/18 06:29 11/02/18 05:59 Ondansetron HCl (Zofran) 4 mg Q6H PRN IVP Nausea & Vomiting 10/30/18 12:30 11/29/18 12:29 Ondansetron HCl (Zofran) 4 mg Q6H PRN ORAL Nausea & Vomiting 10/30/18 12:30 11/29/18 12:29 Polyethylene Glycol (Miralax) 17 gm DAILYPRN PRN ORAL Constipation 10/30/18 12:30 11/29/18 12:29 Sitagliptin Phosphate (Januvia) 50 mg ACBREAKFAST ORAL 10/31/18 06:30 11/30/18 06:29 11/02/18 05:59 Temazepam (Restoril) 15 mg HSPRN PRN ORAL Insomnia 10/30/18 12:30 11/06/18 12:29 Dong Ambriz MD Nov 02, 2018 12:07
[2018-11-02] MEDS ORDERED: ROCEPHIN2 GM IM (13:27)
[2018-11-02] MEDS ORDERED: VANCOMYCIN1 GM IV (13:48)
[2018-11-02 14:00] VITALS: BP 156/65
--- NOTE | 2018-11-02 14:01 | Discharge Summary ---
Discharge Summary Hospital Course Date of Admission Oct 30, 2018 at 11:01 Date of Discharge Admitting Diagnosis PULMONARY EDEMA HPI Margie Yang is a 73 year old female who was admitted on Oct 30, 2018 at 11:01 for Pulmonary Edema Hospital Course Last 24 Hour Vital Signs Date Time Temp Pulse Resp B/P (MAP) Pulse Ox O2 Delivery O2 Flow Rate FiO2 11/02/18 12:24 168/68 11/02/18 09:00 Room Air 11/02/18 08:16 86 12 94 Room Air 21 11/02/18 08:00 98.6 87 18 126/73 (90) 98 11/02/18 05:59 157/70 11/02/18 04:00 70 11/02/18 04:00 98.2 80 18 157/70 (99) 96 11/02/18 00:00 97.5 74 16 146/52 (83) 95 11/01/18 22:00 154/74 11/01/18 21:00 Room Air 11/01/18 20:18 81 16 99 Room Air 21 11/01/18 20:00 88 11/01/18 20:00 97.7 87 18 154/74 (100) 96 11/01/18 18:24 97.0 76 18 152/69 (96) 94 11/01/18 17:45 166/70 11/01/18 16:00 74 11/01/18 16:00 97.0 78 23 166/70 (102) 94 General: No acute distress, awake and alert HEENT: NCAT, sclera anicteric, PERRL, EOMI. Neck: Supple, no significant jugular venous distention, Lungs: Good inspiratory effort, no accessory muscle use, clear to auscultation bilaterally, no Wheeze or Rales. Heart: Regular rate and rhythm, normal S1/S2, no murmur. Abdomen: soft, nontender, nondistended. Normoactive bowel sounds, obesity / Rectal: Refused and deferred. Extremities: No Cyanosis , clubbing , decrease LE's edema. Left foot dressing. RUE Piccline. Neuro: A&O x 3, Able to move all extremities Discharge Discharge Disposition Patient was discharged to Cirilo Blancas MD Nov 02, 2018 14:01
--- NOTE | 2018-11-02 14:36 | NUR ---
NURSE NOTES: pt will be dc today and is to continue the antibiotics she was taking at [facility] for the same amount of time that they were prescribed for per Dr. Hdez. per Supriya patient case manager awaiting for bed confirmation from SNF facility to DC pt.
--- NOTE | 2018-11-02 15:05 | Cardiac Electrophysiology PN ---
Assessment/Plan Assessment/Plan 1. Bradycardia. The patient is currently on clonidine patch weekly. Lowest heart rate was in the high 40s and low 50s. The patient is also hypothyroid, is already on Synthroid. 2. Severe bilateral lower extremity edema. On Lasix 40 mg IV every 8 hours. Amlodipine discontinued. The patient is on hydralazine 50 mg every 8 hours. DC Lasix 3. Congestive heart failure, diastolic dysfunction, on Lasix. 4. History of left foot osteomyelitis. DONOVAN RN DC to SN pending Subjective Subjective Remained in SR. DC in progress Objective Last 24 Hour Vital Signs Date Time Temp Pulse Resp B/P (MAP) Pulse Ox O2 Delivery O2 Flow Rate FiO2 11/02/18 12:24 168/68 11/02/18 09:00 Room Air 11/02/18 08:16 86 12 94 Room Air 21 11/02/18 08:00 98.6 87 18 126/73 (90) 98 11/02/18 05:59 157/70 11/02/18 04:00 70 11/02/18 04:00 98.2 80 18 157/70 (99) 96 11/02/18 00:00 97.5 74 16 146/52 (83) 95 11/01/18 22:00 154/74 11/01/18 21:00 Room Air 11/01/18 20:18 81 16 99 Room Air 21 11/01/18 20:00 88 11/01/18 20:00 97.7 87 18 154/74 (100) 96 11/01/18 18:24 97.0 76 18 152/69 (96) 94 11/01/18 17:45 166/70 11/01/18 16:00 74 11/01/18 16:00 97.0 78 23 166/70 (102) 94 Intake and Output 11/01/18 11/02/18 19:00 07:00 Intake Total 720 ml 220 ml Output Total 600 ml Balance 120 ml 220 ml Intake Oral 720 ml 220 ml Output Urine Total 600 ml # Voids 6 4 # Bowel Movements 2 Laboratory Tests Test 11/02/18 01:05 11/02/18 07:50 Urine Random Sodium 86 mmol/L (20-110) Urine Potassium Timed 31 mmol/L (12-62) White Blood Count 8.7 K/UL (4.8-10.8) Red Blood Count 3.60 M/UL (4.20-5.40) L Hemoglobin 8.5 G/DL (12.0-16.0) L Hematocrit 28.6 % (37.0-47.0) L Mean Corpuscular Volume 80 FL (80-99) Mean Corpuscular Hemoglobin 23.7 PG (27.0-31.0) L Mean Corpuscular Hemoglobin Concent 29.8 G/DL (32.0-36.0) L Red Cell Distribution Width 16.3 % (11.6-14.8) H Platelet Count 204 K/UL (150-450) Mean Platelet Volume 8.4 FL (6.5-10.1) Neutrophils (%) (Auto) 55.8 % (45.0-75.0) Lymphocytes (%) (Auto) 24.2 % (20.0-45.0) Monocytes (%) (Auto) 14.7 % (1.0-10.0) H Eosinophils (%) (Auto) 3.4 % (0.0-3.0) H Basophils (%) (Auto) 1.9 % (0.0-2.0) Sodium Level 143 MMOL/L (136-145) Potassium Level 4.6 MMOL/L (3.5-5.1) Chloride Level 107 MMOL/L (98-107) Carbon Dioxide Level 31 MMOL/L (21-32) Anion Gap 5 mmol/L (5-15) Blood Urea Nitrogen 40 mg/dL (7-18) H Creatinine 2.4 MG/DL (0.55-1.30) H Estimat Glomerular Filtration Rate mL/min (>60) Glucose Level 174 MG/DL (74-106) H Calcium Level 8.9 MG/DL (8.5-10.1) Total Protein (PEP) Pending Albumin (PEP) Pending Globulin (PEP) Pending Albumin/Globulin Ratio Pending Cxbpt-9-Djaflixjz Pending Zcdef-9-Lbvkcndxb Pending Beta Globulins Pending Beta Gamma Globulin Pending PEP Abnormal Protein Bands Pending Protein Electrophoresis Interpret Pending Objective HEAD AND NECK: No JVD. LUNGS: Clear. CARDIOVASCULAR: Regular S1 and S2 with no gallop or murmur. ABDOMEN: Soft. EXTREMITIES: A 2+ pitting edema. Talon Jorge MD Nov 02, 2018 15:05
--- NOTE | 2018-11-02 15:28 | NUR ---
DISCHARGE PLANNING DISCHARGE ORDER NOTED Patient has been accepted back to; [facility] [address] [address] Bed:38 Skilled [phone] for Nurse to Nurse report [facility] ETA for transportation: 16:00
[2018-11-02 17:00] LABS: APPEARANCE,URINE CLEAR; BILIRUBIN, URINE NEGATIVE (NEGATIVE); COLOR,URINE PALE YELLOW; GLUCOSE, URINE (UA) 1+ (NEGATIVE); KETONES,URINE NEGATIVE (NEGATIVE); LEUKOCYTE ESTERASE ,URINE NEGATIVE (NEGATIVE); NITRITE,URINE NEGATIVE (NEGATIVE); PH,URINE 6 (4.5-8.0); PROTEIN,URINE 4+ (NEGATIVE); UROBILINOGEN,URINE NORMAL MG/DL (0.0-1.0)
--- NOTE | 2018-11-02 17:15 | NUR ---
NURSE NOTES: pt. left hospital via gurney at 1715. Pt. was discharged in stable condition V/s within normal limits. Picc line is patent and dressing intact. Belonging sheet was reviewed and double checked with pt. and family member at bedside. Pt took all her belongings with her. Reviewed all meds with pt and pt verbalized understanding. Also advised pt that she needs to continue and finish antibiotics that were started at SNF as per doctor's instruction. Pt was notified that Geraldine DAVENPORT/RN knows that pt needs to continue her antibiotic until full dose is finish. Pt will follow up with PCP within 1wk after discharge.
--- NOTE | 2018-11-03 03:45 | Discharge Summary ---
DATE OF ADMISSION: 10/30/2018 DATE OF DISCHARGE: 11/02/2018 HOSPITAL COURSE: This is a 73-year-old female with past medical history significant for diabetes type 2, hypertension, history of chronic kidney disease, morbid obesity, and left foot osteomyelitis, who has presented to the hospital from nursing facility after she was noted to have worsening of the leg edema. The patient subsequently was admitted to the hospital with anasarca as well as fluid overload and pedal edema. Throughout the hospital course, the patient was consulted with Dr. Jorge from Cardiology/Electrophysiology, Dr. Mendes from General Cardiology, and Dr. Ambriz from Pulmonary Critical Care. The patient was started on Lasix. Her status gradually improved. Renal function got progressively worsening and the patient's status gradually improved and then subsequently was discharged back to the nursing facility, to be followed as outpatient. FINAL DIAGNOSES: 1. Pulmonary edema. 2. Cardiomegaly. 3. Anemia. 4. Pedal edema. 5. Fluid overload. 6. Diabetes type 2. 7. Hypertension. 8. Osteoarthritis, left foot. MEDICATION AT DISCHARGE: Continue discharge medication list. ACTIVITY: As tolerated. DIET: An 1800-ADA cardiac diet. DISCHARGE DISPOSITION: The patient will be transferred to nursing facility via ambulance. Cirilo Blancas M.D. DR: MASON JOB#: [id number] CC:
--- NOTE | 2018-11-04 12:06 | NUR ---
CASE MANAGEMENT: CM review and clinical information (face sheet/ ER MD notes/ H&P/DC summary) faxed to [facility] @ [phone]. REF#[id number].
== END 2018-11-02 17:22 | DRG 291 ==
LOC: EDBD 08:03 → EMR 08:39 → EDBEDREQ 10:54 → 2E 11:01 → EDBEDREQ 11:20
DX: I13.0 Hypertensive heart and chronic kidney disease with heart failure and stage 1 through stage 4 chronic kidney disease, or unspecified chronic kidney disease (principal); I50.33 Acute on chronic diastolic (congestive) heart failure; I16.1 Hypertensive emergency; M86.8X7 Other osteomyelitis, ankle and foot; Z68.41 Body mass index [BMI] 40.0-44.9, adult; I50.9 Heart failure, unspecified; N18.9 Chronic kidney disease, unspecified; E11.22 Type 2 diabetes mellitus with diabetic chronic kidney disease; D64.9 Anemia, unspecified; Z79.82 Long term (current) use of aspirin; E66.9 Obesity, unspecified; E11.40 Type 2 diabetes mellitus with diabetic neuropathy, unspecified; R00.1 Bradycardia, unspecified; E03.9 Hypothyroidism, unspecified
CPT/HCPCS: 36415; 71045; 71250; 76770; 78579; 78580; 80048; 80053; 81001; 82043; 82270; 82378; 82550; 82553; 82607; 82746; 82962; 83540; 83550; 83615; 83735; 83880; 83935; 84100; 84133; 84165; 84300; 84439; 84443; 84480; 84484; 84550; 85007; 85025; 85044; 85060; 85610; 85651; 85730; 86140; 87081; 89050; 93005; 93306; 93970; 93971; 94664; 96374; 99291; A9503; J1815